=== PATIENT | male | born 1940 | race Caucasian/White ===

== ENCOUNTER 2022-03-13 08:37 | Emergency (ER) | payer MEDICARE, OTHER, SELFPAY ==
[2022-03-13 08:48] VITALS: BP 151/80; PULSE 76; RESP 22; TEMP 36.6; O2SAT 93; BMI 26.5
[2022-03-13 09:00] VITALS: BP 158/87; PULSE 76; RESP 22; TEMP 36.6; O2SAT 93
--- NOTE | 2022-03-13 09:11 | CRLHL7_ITS ---
For Patients: As a result of the Century Cures Act, medical imaging exams and procedure reports are released immediately into your electronic medical record. You may view this report before your referring provider. If you have questions, please contact your health care provider. INDICATION: Cough COMPARISON: None TECHNIQUE: PA and lateral views of the chest were acquired FINDINGS: TUBES AND LINES: None. HEART AND MEDIASTINUM: The heart size is normal. The mediastinal contour appears normal for patient age. LUNGS AND PLEURAL SPACES: Hyperinflation which may be related to COPD. This should be considered in the appropriate clinical setting. However, there is no acute focal findings.The pleural spaces are unremarkable. OSSEOUS STRUCTURES: Age-appropriate appearance. No acute focal finding. IMPRESSION: Hyperinflated but otherwise unremarkable appearing lungs. No acute focal findings. Dictated by Kirt Han MD @ 03/13/2022 10:14:29 AM (Electronically Signed)
--- NOTE | 2022-03-13 09:12 | ED_ITS ---
HPI - General Adult General Chief complaint: Weakness Stated complaint: feeling unstable Time Seen by Provider: 03/13/22 09:02 History of Present Illness HPI narrative: This 81-year-old male comes in reporting generalized weakness. He states that he has had a cough over the past couple days. He arrives with oximetry at 92% on room air and states that he did not think that he felt short of breath but when I indicate his oximetry level he states that maybe there was some shortness of breath. He also reports some increased urinary frequency. He had a prostate procedure done about 6 months ago which helped for a month or 2 afterwards but since then has had dysuria symptoms. Related Data Previous Rx's Medication Instructions Recorded nirmatrelvir 300 mg (150 mg See Rx Instructions PO .COMPLEX 03/13/22 x2)-ritonavir 100 mg tablet,dose #30 ea pack(EUA) (Paxlovid) Allergies Allergy/AdvReac Type Severity Reaction Status Date / Time No Known Drug Allergies Allergy Verified 03/13/22 08:48 Review of Systems Status of ROS: Reports: 10 or more systems reviewed and unremarkable except as noted in History and below Narrative: Constitutional: No fevers, no weight gain or loss. Eyes: No discharge. No vision changes. HENT: No congestion, no sore throat, no ear pain. Cardiovascular: No chest pain, no palpitations. Respiratory: No shortness of breath. He reports a cough over the past couple days. Gastrointestinal: No abdominal pain, no vomiting, no diarrhea. Genitourinary: No hematuria. Increased urinary frequency. Musculoskeletal: Normal range of motion. Skin: No rashes, no pruritis. Neurological: No dizziness, weakness, sensory change, speech change. Endo/Heme/Allergies: No bruising or bleeding. No polydipsia. Pysch: no suicidality, no anxiety, no insomnia. All other systems reviewed and are negative. PFSH PFSH Social History Smoking Status: Former smoker Do you use any of these nicotine containing products: None Second hand tobacco smoke exposure: No How often do you have a drink containing alcohol: never How often do you have six or more drinks on one occasion: Never AUDIT-C Alcohol total score: 0 Non-prescribed substance use: denies use service: No Exam Narrative: Exam Narrative: Constitutional: Well-developed, well-nourished, no acute distress. HEENT: Normocephalic, atraumatic. Neck: Normal range of motion. Nontender. Supple. Heart: Regular. No murmurs. Normal rate. Intact distal pulses. Lungs: Clear to auscultation. No chest discomfort. No wheezes, rhonchi, or rales. Abdomen: Normal bowel sounds. Nontender. No rebound tenderness. Genitalia: Deferred. Back: No midline tenderness. Normal range of motion. Extremities: Normal range of motion. No injury. No pedal edema. Skin: Intact. No rash. Warm. No erythema or pallor. Neurologic: No altered sensation. No weakness. Alert and oriented. Psychiatric: No suicidality. No anxiety or depression. No insomnia. Nursing notes and vitals signs are reviewed. Const: Vital Signs, click to edit/add: Vital Signs - 24 hr 03/13/22 08:48 Temperature 98 F Pulse Rate [Pulse Oximeter] 76 Respiratory Rate 22 Blood Pressure [Ri ght Upper Arm] 151/80 H Pulse Oximetry 93 Oxygen Delivery Me thod Room Air Course Vital Signs Vital signs: Initial Vital Signs Temperature 98 F 03/13/22 08:48 Temperature Source Temporal Artery Scan 03/13/22 08:48 Pulse Rate 76 03/13/22 08:48 Pulse Rhythm 03/13/22 08:48 Respiratory Rate 22 03/13/22 08:48 Blood Pressure 151/80 H 03/13/22 08:48 Blood Pressure Mean 103 03/13/22 08:48 Pulse Oximetry 93 03/13/22 08:48 Oxygen Delivery Method 03/13/22 08:48 Vital Signs Temperature 98 F 03/13/22 08:48 Pulse Rate 76 03/13/22 08:48 Respiratory Rate 22 03/13/22 08:48 Blood Pressure 151/80 H 03/13/22 08:48 Pulse Oximetry 93 03/13/22 08:48 Oxygen Delivery Method 03/13/22 08:48 Temperature 98 F 03/13/22 08:48 Pulse Rate 76 03/13/22 08:48 Respiratory Rate 22 03/13/22 08:48 Blood Pressure 151/80 H 03/13/22 08:48 Pulse Oximetry 93 03/13/22 08:48 Oxygen Delivery Method 03/13/22 08:48 Medical Decision Making MDM Narrative Medical decision making narrative: This patient comes in feeling generalized weakness and occasional cough. Lab results returned with normal findings except he is positive for COVID. The patient has normal kidney function and is a candidate for Paxil of it. This was prescribed for him. He is okay to return home. IA instructed him regarding signs or symptoms that would indicate a need for return and re-evaluation. Lab Data Labs: Lab Results 03/13/22 03/13/22 03/13/22 Range/Units 09:20 09:20 09:20 WBC 7.09 (4.50-11.00) K/uL RBC 4.11 L (4.30-5.90) m/uL Hgb 12.6 L (13.5-17.5) gm/dL Hct 37.0 (37.0-53.0) % MCV 90 (80-100) fL MCH 31 (26-34) pg MCHC 34 (32-36) gm/dL RDW Coeff of Radha 12.6 (11.5-15.5) % Plt Count 144 (140-440) K/uL Neut % (Auto) 75.7 H (42.0-72.0) % Lymph % (Auto) 5.2 L (20-44) % [place] % (Auto) 15.9 H (0.0-11.0) % Eos % (Auto) 2.3 (0.0-7.0) % Baso % (Auto) 0.3 (0.0-3.0) % Neut # (Auto) 5.40 (1.7-7.0) K/uL Lymph # (Auto) 0.40 L (0.90-2.90) K/uL [place] # (Auto) 1.10 H (0.00-0.90) K/UL Eos # (Auto) 0.16 (0.00-0.50) K/uL Baso # (Auto) 0.02 (0.00-0.30) K/uL Abs Immat Gran (auto) 0.04 (0.00-0.30) K/uL Sodium 131 L (135-149) mmol/L Potassium 4.1 (3.6-5.1) mmol/L Chloride 96 (96-114) mmol/L Carbon Dioxide 26 (20-32) mmol/L BUN 22 (7-30) mg/dL Creatinine 1.3 (0.5-1.5) mg/dL Estimated Creat Clear 46.66 Estimated GFR 55 ml/min Glucose 115 (60-115) mg/dL Calcium 9.0 (8.4-10.6) mg/dL SARS-CoV-2 (PCR) POSITIVE SARS-CoV-2 A (Negative) Influenza Type A (PCR) Negative PCR FLU A (Negative) Influenza Type B (PCR) Negative PCR FLU B (Negative) POC Troponin I (0.01-0.04) ng/ml 03/13/22 Range/Units 09:20 WBC (4.50-11.00) K/uL RBC (4.30-5.90) m/uL Hgb (13.5-17.5) gm/dL Hct (37.0-53.0) % MCV (80-100) fL MCH (26-34) pg MCHC (32-36) gm/dL RDW Coeff of Radha (11.5-15.5) % Plt Count (140-440) K/uL Neut % (Auto) (42.0-72.0) % Lymph % (Auto) (20-44) % [place] % (Auto) (0.0-11.0) % Eos % (Auto) (0.0-7.0) % Baso % (Auto) (0.0-3.0) % Neut # (Auto) (1.7-7.0) K/uL Lymph # (Auto) (0.90-2.90) K/uL [place] # (Auto) (0.00-0.90) K/UL Eos # (Auto) (0.00-0.50) K/uL Baso # (Auto) (0.00-0.30) K/uL Abs Immat Gran (auto) (0.00-0.30) K/uL Sodium (135-149) mmol/L Potassium (3.6-5.1) mmol/L Chloride (96-114) mmol/L Carbon Dioxide (20-32) mmol/L BUN (7-30) mg/dL Creatinine (0.5-1.5) mg/dL Estimated Creat Clear Estimated GFR ml/min Glucose (60-115) mg/dL Calcium (8.4-10.6) mg/dL SARS-CoV-2 (PCR) (Negative) Influenza Type A (PCR) (Negative) Influenza Type B (PCR) (Negative) POC Troponin I 0.00 L (0.01-0.04) ng/ml Imaging Data Chest x-ray: Radiologist's impression: Hyperinflated but otherwise unremarkable appearing lungs. No acute focal findings. ECG Data Attestation: I personally reviewed and interpreted this ECG as follows: Interpretation: Normal sinus rhythm. Rate is 74 beats per minute. There are no specific ST or T-wave abnormalities. Discharge Plan Discharge Clinical Impression: COVID-19 Patient Disposition: Home, Self-Care Condition: Stable Instructions: COVID-19 (Coronavirus Disease 2019) (ED) Additional Instructions: Take medication as prescribed. Follow up with MD or return if worsening symptoms occur, especially if becoming short of breath. Prescriptions: New Paxlovid (EUA) 300 mg (150 mg x 2)-100 mg tablets,dose pack See Rx Instructions .ROUTE .COMPLEX Qty: 30 0RF Rx Instructions: take TWO 150 mg tablets of nirmatrelvir with ONE 100 mg tablet of ritonavir twice daily for 5 days Follow Up/Referrals: Provider,Not a Local [Primary Care Provider] - Stand Alone Forms: [facility] Info Instructions
[2022-03-13 09:30] VITALS: BP 175/88
[2022-03-13 09:50] LABS: Basophils Absolute Auto 0.02 K/uL (0.00-0.30); Basophils Percent Auto 0.3 % (0.0-3.0); Eosinophils Absolute Auto 0.16 K/uL (0.00-0.50); Eosinophils Percent Auto 2.3 % (0.0-7.0); Hemoglobin* 12.6 gm/dL (13.5-17.5); Immature Granulocytes Abs Auto 0.04 K/uL (0.00-0.30); Lymphocytes Percent Auto 5.2 % (20-44); Mean Corpuscular HGB Conc 34 gm/dL (32-36); Mean Corpuscular Hemoglobin 31 pg (26-34); Mean Corpuscular Volume 90 fL (80-100); Monocytes Percent Auto 15.9 % (0.0-11.0); Neutrophils Percent Auto 75.7 % (42.0-72.0); Platelet Count* 144 K/uL (140-440); RDW Coefficient of Variation % 12.6 % (11.5-15.5); Red Blood Count 4.11 m/uL (4.30-5.90); White Blood Count* 7.09 K/uL (4.50-11.00)
[2022-03-13 10:00] VITALS: BP 122/74
[2022-03-13 10:10] LABS: Chloride* 96 mmol/L (96-114); Potassium* 4.1 mmol/L (3.6-5.1); Sodium* 131 mmol/L (135-149)
[2022-03-13 10:13] LABS: Blood Urea Nitrogen* 22 mg/dL (7-30); Carbon Dioxide* 26 mmol/L (20-32); Creatinine* 1.3 mg/dL (0.5-1.5); Est. Creatinine Clearance* 46.66; Estimated Glomerular Filt Rate 55 ml/min
[2022-03-13 10:14] LABS: Glucose* 115 mg/dL (60-115)
[2022-03-13 10:16] LABS: Slide Review Reflex No
[2022-03-13 10:30] VITALS: BP 111/61
[2022-03-13 10:48] LABS: PCR FLU A Negative PCR FLU A (Negative); PCR FLU B Negative PCR FLU B (Negative)
[2022-03-13 15:07] LABS: SARS PCR* POSITIVE SARS-CoV-2 (Negative)
== END 2022-03-13 11:31 | disposition home or self-care (01) ==
PROVIDERS: Emergency Provider Emergency Medicine Emergency Medical Services
DX: U07.1 COVID-19 (principal)
CPT/HCPCS: 36415; 71046; 80048; 81001; 84484; 85025; 87631; 93005; 99284; 99285

== ENCOUNTER 2022-06-04 16:30 | Outpatient (CLI) | payer MEDICARE, OTHER, SELFPAY | END 2022-06-04 16:31 | disposition home or self-care (01) | LOC: AMB 06-14 19:45 | PROVIDERS: Visit Provider Emergency Medicine Emergency Medical Services | DX: R07.89 Other chest pain (principal) | CPT/HCPCS: A0425; A0427 ==

== ENCOUNTER 2022-06-04 17:10 | Emergency (ER) | payer MEDICARE, OTHER, SELFPAY ==
[2022-06-04 17:23] VITALS: BP 136/69; PULSE 58; RESP 16; TEMP 36.3; O2SAT 95; BMI 29.5
[2022-06-04 17:30] VITALS: BP 149/68; PULSE 64; RESP 16; O2SAT 96
--- NOTE | 2022-06-04 17:36 | CRLHL7_ITS ---
For Patients: As a result of the Century Cures Act, medical imaging exams and procedure reports are released immediately into your electronic medical record. You may view this report before your referring provider. If you have questions, please contact your health care provider. INDICATION: [id number]. TECHNIQUE: Chest 1 views. COMPARISON: March 13, 2022. FINDINGS: Cardiovascular and mediastinum: Heart size and vasculature are normal in caliber and appearance. Lungs and pleural spaces: Coarse interstitial opacities no sign of infiltrate or mass. No sign of pleural effusion. No pneumothorax. Bones and soft tissues: No significant findings. IMPRESSION: Chronic coarse interstitial opacities. No focal consolidations or significant change when compared to prior study. Dictated by Manuel Culver MD @ 06/04/2022 6:20:04 PM (Electronically Signed)
[2022-06-04 17:40] VITALS: O2SAT 97
--- OUTSIDE RECORDS SUMMARY | 2022-06-04 18:07 | XMS_ITS | Encounter Summary ---
:1940 Author Organization [facility] Address [address] [place] [address] Care Team Providers Name Role Phone Unavailable Primary Care Provider Unavailable Encounter Details Date Type Department Care Team Description 05/24/2022 Orders Only Division of Nephrology and [facility] [place] [address] [facility] [address] [place] [phone] (Wo rk) Social History Tobacco Use Types Packs/Day Years Used Date Smoking Tobacco: Former Cigarettes 1 [birth year] /06/1954 - 11/19/2004 Smokeless Tobacco: Never Alcohol Use Standard Drinks/Week Comments No 0 (1 standard drink = 0.6 oz pure alcoho l) none since 2004 Alcohol Habits Answer Date Recorded How often do you have a drink containing alcohol? Never 05/23/2022 How many drinks containing alcohol do you have on a typical Not asked day when you are drinking? How often do you have six or more drinks on one occasion? Ne neha 03/04/2019 Social Isolation Answer Date Recorded In a typical week, how many times do you talk on the Three t imes a week 05/23/2022 phone with family, friends, or neighbors? How often do you get together with friends or Once a week 05/23/2022 relatives? How often do you attend evangelical or alevism Never 05/23/2022 services? Do you belong to any clubs or organizations such as No 05/23/2022 evangelical groups, unions, fraternal or athletic groups, or school groups? How often do you attend meetings of the clubs or Never 05/23/2022 organizations you belong to? Are you now , , , , 05/23/2022 never or living with a partner? Physical Activity Answer Date Recorded On average, how many days per week do you engage in moderate to 0 days 05/23/2022 strenuous exercise (like walking fast, running, jogging, dancing, swimming, biking, or other activities that cause a light or heavy sweat)? On average, how many minutes do you engage in exercise at th is 0 min 05/23/2022 level? Stress Answer Date Recorded Do you feel stress - tense, restless, nervous, or Only a lit tle 05/23/2022 anxious, or unable to sleep at night because your mind is troubled all the time - these days? Financial Resource Strain Answer Date Recorded How hard is it for you to pay for the very basics like Not v genny hard 05/23/2022 food, housing, medical care, and heating? Intimate Partner Violence Answer Date Recorded Within the last year, have you been afraid of your partner o r No 05/23/2022 ex-partner? Within the last year, have you been humiliated or emotionall y No 05/23/2022 abused in other ways by your partner or ex-partner? Within the last year, have you been kicked, hit, slapped, or No 05/23/2022 otherwise physically hurt by your partner or ex-partner? Within the last year, have you been raped or forced to have any No 05/23/2022 kind of sexual activity by your partner or ex-partner? Food Insecurity Answer Date Recorded Within the past 12 months, you worried that your food would Never true 05/23/2022 run out before you got money to buy more. Within the past 12 months, the food you bought just didn't N ever true 05/23/2022 last and you didn't have money to get more. Transportation Needs Answer Date Recorded In the past 12 months, has lack of transportation kept you f rom No 05/23/2022 medical appointments or from getting medications? In the past 12 months, has lack of transportation kept you f rom No 05/23/2022 meetings, work, or getting things needed for daily living? Housing Stability Answer Date Recorded In the last 12 months, was there a time when you were not ab le No 05/23/2022 to pay the mortgage or rent on time? In the last 12 months, how many places have you lived? 1 05/23/2022 In the last 12 months, was there a time when you did not hav e a No 05/23/[address] to sleep or slept in a half-way (including now)? Education Answer Date Recorded What is the highest level of school you have Some college, n o degree 05/22/2022 completed or the highest degree you have received? Sex Assigned at Date Recorded Male 04/08/2018 12:55 PM CDT documented as of this encounter Plan of Treatment Not on filedocumented as of this encounter Visit Diagnoses Not on filedocumented in this encounter
--- OUTSIDE RECORDS SUMMARY | 2022-06-04 18:07 | XMS_ITS | Encounter Summary ---
:1940 Author Organization [facility] Address [address] [place] [address] Care Team Providers Name Role Phone Unavailable Primary Care Provider Unavailable Encounter Details Date Type Department Care Team Description 05/22/2022 Clinical Communication Division of Nephrology Antelmo Reese and Hypertension in [place], [place] [address] [facility] [address] [place] [phone] Social History Tobacco Use Types Packs/Day Years Used Date Smoking Tobacco: Former Cigarettes 0 Quit : 2004 Smokeless Tobacco: Never Alcohol Use Standard Drinks/Week [...] 05/23/2022 relatives? How often do you attend bahai or anabaptism Never 05/23/2022 services? Do you belong to any clubs or organizations such as No 05/23/2022 bahai groups, unions, fraternal or athletic groups, or [...] place to sleep or slept in a longterm (including now)? Education Answer Date Recorded What is the highest level of school you have Some college, n o degree 05/22/2022 completed or the highest degree you have received? Sex Assigned at Date Recorded Male 04/08/2018 12:55 PM CDT documented as of this encounter Miscellaneous Notes Telephone Encounter - Antelmo Reese M.D. 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 Yesterday from about 5-6 p.m. he had some left-sided chest pain without radiation. He took 2 nitroglycerin and noted no improvement after 10 minutes. He took a third and the pain resolved. The whole episode lasted about 1 hour. He did not note an acid or burning sensation in his chest or throat. Today he feels well. His blood pressure has been minimally elevated. He has not had any exertional symptoms. His medications include amlodipine, carvedilol, losartan/HCTZ, rosuvastatin, and nitroglycerin if needed. Yesterday's episode was probably angina. If he has more symptoms, he should go to the emergency department. I will arrange evaluation, including cardiology consultation. RAIL OPERATOR documented in this encounter Plan of Treatment Not on filedocumented as of this encounter Visit Diagnoses Not on filedocumented in this encounter
--- OUTSIDE RECORDS SUMMARY | 2022-06-04 18:07 | XMS_ITS | Encounter Summary ---
:1940 Author Organization [facility] Address [address] [place] [address] Care Team Providers Name Role Phone Unavailable Primary Care Provider Unavailable Reason for Referral Outpatient (Routine) - Closed Specialty Diagnoses / Procedures Referred By Contact Refer red To Contact Diagnoses Angina Pectoris Unspecified (HCC) Antelmo Reese M.D. [facility] Procedures DX Chest AP or PA and Lateral 2 Views [address] [place] [phone] Referral ID Status Reason Start Date Expiration Date Visits Requ ested Visits Authorized [id number] Closed 05/22/2022 05/22/2023 1 1 YMAN Reason for Visit Outpatient (Routine) - Closed Specialty Diagnoses / Procedures Referred By Contact Refer red To Contact Diagnoses Angina Pectoris Unspecified (HCC) Antelmo Reese M.D. [facility] Procedures DX Chest AP or PA and Lateral 2 Views [address] [place] [address] [phone] Referral ID Status Reason Start Date Expiration Date Visits Requ ested Visits Authorized [id number] Closed 05/22/2022 05/22/2023 1 1 Encounter Details Date Type Department Care Team Description 05/24/2022 Hospital Encounter Department of Antelmo Reese Radiology, Dom Clayton M.D. Unspecified (HCC) [facility], in [address] [place] [address] [place] [phone] [place], [place] [phone] (Work) [phone] Social History Tobacco Use Types Packs/Day Years Used Date Smoking Tobacco: Former Cigarettes 1 60 06/0 [birth year]/1954 - 11/19/2004 Smokeless Tobacco: Never Alcohol Use [...] 05/23/2022 relatives? How often do you attend faith or sikh Never 05/23/2022 services? Do you belong to any clubs or organizations such as No 05/23/2022 faith groups, unions, fraternal or athletic groups, or [...] place to sleep or slept in a halfway (including now)? Education Answer Date Recorded What is the highest level of school you have Some college, n o degree 05/22/2022 completed or the highest degree you have received? Sex Assigned at Date Recorded Male 04/08/2018 12:55 PM CDT documented as of this encounter Medications at Time of Discharge Medication Sig Dispensed Refills Start Date End Date acetaminophen (TYLENOL) Take 1-2 tablets by 0 500 mg tablet mouth 3 (three) times a day as needed. pain amLODIPine (NORVASC) TAKE ONE TABLET BY 90 tablet 3 022 2.5 mg MOUTH ONE TIME DAILY tabletIndications: Hypertension Personal History aspirin 325 mg tablet Take 1 tablet by 0 09/24/19 15 mouth daily. carvediloL (COREG) 12.5 Take 1 tablet (12.5 200 tablet 3 10/202104/29/2023 mg tabletIndications: mg total) by mouth 2 Hypertension Personal (two) times a day History with meals. finasteride (PROSCAR) 5 Take 1 tablet (5 mg 100 tablet 3 10/202104/29/2023 mg tabletIndications: total) by mouth Benign Prostatic daily. Hyperplasia Without Obstruction lanolin/mineral Administer 1 drop 0 04/06/2015 oil/petrolatum into affected eye(s) (ARTIFICIAL TEARS OPHT) as needed. As needed (both eyes). loratadine (CLARITIN) Take 10 mg by mouth 0 10 mg tablet daily. losartan-hydroCHLOROthi Take 1 tablet by 100 tablet 3 202104/29/2023 azide (HYZAAR) 100-25 mouth every morning. mg per tabletIndications: Hypertension Personal History miconazole (MICATIN) 2 Apply 1 application 28.35 g 1 01/2022 % cream topically 2 (two) times a day. Apply to right armpit twice daily. nitroglycerin Place 1 tablet (0.4 25 tablet 11 12/24/2020 (NITROSTAT) 0.4 mg SL mg total) under the tabletIndications: tongue every 5 (five) Coronary Artery Disease minutes as needed for Without Angina Pectoris chest pain. Place 1 tab under the tongue at first sign of chest pain. If no relief in 5 min, call 911. Repeat dose every 5 min up to 2 additional doses if chest pain continues. POLYETHYLENE GLYCOL Take 1 g by mouth 0 7 3350 ORAL daily. MiraLAX powder rosuvastatin (CRESTOR) TAKE ONE TABLET BY 90 tablet 3 02/08 10 mg MOUTH IN THE EVENING tabletIndications: Coronary Artery Disease Without Angina Pectoris sertraline (ZOLOFT) 50 TAKE ONE TABLET BY 90 tablet 3 02/08 mg tabletIndications: MOUTH ONE TIME DAILY Hypertension Essential Primary tamsulosin (FLOMAX) 0.4 TAKE ONE CAPSULE BY 90 capsule 3 mg 24 hr MOUTH ONE TIME DAILY capsuleIndications: Benign Prostatic Hyperplasia Without Obstruction traMADoL (ULTRAM) 50 mg Take 1 tablet (50 mg 270 tablet 1 tabletIndications: total) by mouth 3 Chronic Pain/Nonacute (three) times a day Pain Indications: Chronic Pain/Nonacute Pain. zolpidem (AMBIEN) 10 mg TAKE ONE TABLET BY 90 tablet 3 01/23 tabletIndications: MOUTH ONE TIME DAILY Insomnia AT BEDTIME documented as of this encounter Plan of Treatment Not on filedocumented as of this encounter Procedures Procedure Name Priority Date/Time Associated Comments Diagnosis DX CHEST AP OR PA RAD - Routine 05/24/2022 9:09 Angina Pectoris Res ults for this AND LATERAL 2 (most inpatients AM BUGGYMAN Unspecified (HCC) proce dure are in VIEWS and all the results outpatients) section. documented in this encounter Results DX Chest AP or PA and Lateral 2 Views (05/24/2022 9:09 AM BUGGYMAN) Anatomical Region Laterality Modality Chest, Thoracic RST LOS, Thoracic ARZ LOS, Thoracic N/A Digital Radiography FLA LOS Specimen (Source) Anatomical Collection Method Collection Time Re ceived Time Location / / Volume Laterality 05/24/2022 9:16 AM BUGGYMAN Impressions 05/24/2022 9:26 AM BUGGYMAN Comparison chest radiograph 02/25/2014. The nodular opacity projected over the upper thoracic spine on the previous exam is n o longer identified. Mildly tortuous aorta with calcification. Right cardiac fat pad. Os teophytic changes of the spine. Otherwise, negative chest. Narrative 05/24/2022 9:26 AM BUGGYMAN EXAM: ??DX CHEST AP OR PA AND LATERAL 2 VIEWS Procedure Note Enrico Ho M.D. - 05/24/2022Form atting of this note might be different from the original. EXAM: DX CHEST AP OR PA AND LATERAL 2 EWS IMPRESSION: Comparison chest radiograph 02/25/2014. The nodular opacity projected over the upper thoracic spine on the previous exam is n o longer identified. Mildly tortuous aorta with calcification. Right cardiac fat pad. Os teophytic changes of the spine. Otherwise, negative chest. Antelmo [facility] documented in this encounter Visit Diagnoses Diagnosis Angina Pectoris Unspecified (HCC) documented in this encounter
--- OUTSIDE RECORDS SUMMARY | 2022-06-04 18:07 | XMS_ITS | Encounter Summary ---
:1940 Author Organization [facility] Address [address] [place] [address] Care Team Providers Name Role Phone Unavailable Primary Care Provider Unavailable Encounter Details Date Type Department Care Team Description 05/26/2022 Orders Only Division of Nephrology and Ghulam Reese, [facility] [place] [address] [facility] [address] [place] [phone] (Wo rk) Social History Tobacco Use Types [...] 05/23/2022 relatives? How often do you attend muslim or muslim Never 05/23/2022 services? Do you belong to any clubs or organizations such as No 05/23/2022 muslim groups, unions, fraternal or athletic groups, or [...] place to sleep or slept in a senior care (including now)? Education Answer Date Recorded What [...]
--- OUTSIDE RECORDS SUMMARY | 2022-06-04 18:07 | XMS_ITS | Encounter Summary ---
:1940 Author Organization [facility] Address [address] [place] [address] Care Team Providers Name Role Phone Unavailable Primary Care Provider Unavailable Reason for Referral Outpatient (Routine) - Closed Specialty Diagnoses / Procedures Referred By Contact Refer red To Contact Diagnoses Angina Pectoris Unspecified (HCC) Antelmo Reese M.D. [facility] Procedures Echo Stress [address] [place], [place] [address] Referral ID Status Reason Start Date Expiration Date Visits Requ ested Visits Authorized [id number] Closed 05/22/2022 05/22/2023 1 1 ROUTE SUPERVISOR Outpatient (Routine) - Closed Specialty Diagnoses / Procedures Referred By Contact Refer red To Contact Diagnoses Angina Pectoris Unspecified (HCC) Antelmo Reese M.D. [facility] Procedures DX Chest AP or PA and Lateral 2 Views [address] [place], [place] [phone] Referral ID Status Reason Start Date Expiration Date Visits Requ ested Visits Authorized [id number] Closed 05/22/2022 05/22/2023 1 1 ROUTE SUPERVISOR Outpatient (Routine) - Closed Specialty Diagnoses / Procedures Referred By Contact Refer red To Contact Diagnoses Angina Pectoris Unspecified (HCC) Antelmo Reese M.D. [facility] Procedures ECG 12 Lead [address] [place] [address] Referral ID Status Reason Start Date Expiration Date Visits Requ ested Visits Authorized [id number] Closed 05/22/2022 05/22/2023 1 1 ROUTE SUPERVISOR Encounter Details Date Type Department Care Team Description 05/22/2022 Orders Only Division of Nephrology Antelmo Reese ottoniel Pectoris and Hypertension in Yaw Clayton Unspecified (HCC) [place], [place] 200 [facility] (Primary Dx) [address] [place] [phone] Social History Tobacco Use Types Packs/Day Years [...] 05/23/2022 relatives? How often do you attend adventist or sikh Never 05/23/2022 services? Do you belong to any clubs or organizations such as No 05/23/2022 adventist groups, unions, fraternal or athletic groups, or [...] place to sleep or slept in a long-term (including now)? Education Answer Date Recorded What is the highest level of school you have Some college, n o degree 05/22/2022 completed or the highest degree you have received? Sex Assigned at Date Recorded Male 04/08/2018 12:55 PM CDT documented as of this encounter Plan of Treatment Scheduled Orders Name Type Priority Associated Diagnoses Order S chedule INR, POCT Point of Care Routine Angina Pectoris Expected: 1 07/24/2021 Testing-Docked Unspecified (HCC) (Approxi mate), Device Expires: 2023 documented as of this encounter Results ECHO STRESS 2D WITH COLOR, DOPPLER AND CONTRAST (05/25/2022 8:59 AM MILK ROUTE SUPERVISOR) [facility] Method Time Signature Ejection Fraction 55 MC CV EIMS Mid-Ascending Aorta 36 MC CV EIMS LV Mass Index 89 MC CV EIMS LV End-Diastolic 47 MC CV EIMS Diameter MV E Velocity 0.70 MC CV EIMS MV A Velocity 1.20 MC CV EIMS MV E/A 0.58 MC CV EIMS MV e' Velocity 0.04 MC CV EIMS Medial MV E/e' Medial 17.50 MC CV EIMS LV Interventricular 12 MC CV EIMS Septal Wall Thickness LV Posterior Wall 10 MC CV EIMS Thickness LV Relative Wall 43 MC CV EIMS Thickness RA Pressure 5 MC CV EIMS LA Volume Index 44 MC CV EIMS WMSI At Rest 1.19 MC CV EIMS WMSI At Peak Stress 1.13 MC CV EIMS Anatomical Region Laterality Modality Echocardiography Specimen (Source) Anatomical Collection Method Collection Time Re ceived Time Location / / Volume Laterality 05/25/2022 7:18 AM MILK ROUTE SUPERVISOR Impressions 05/25/2022 9:49 AM MILK ROUTE SUPERVISOR STRESS TEST:Dobutamine was infused from 5 mcg/kg/min to 40 mcg/kg/min. A dose of 0.5 mg of atropine was administered. A peak heart rate of 122 BPM was achieved (88% age-predicted maximal HR). The test w as terminated due to target heart rate a chievement. The baseline ECG demonstrated sinus rhyt hm. The baseline ECG demonstrated VPC's. The stress ECG was negative for ischemia. With stress, there were no S-T changes. VPC's and APC's present at stress. Nons ustained ventricular tachycardia with Do butamine infusion (5 beat run). Please see Thad Velazquez for additional information. REST IMAGES: LEFT VENTRICLE:Normal left ventricular c hamber size. Normal left ventricular wall thickness with prominent basal septum. Estimated left ventricular ejection fraction range 55% - 60%. Regional wall motion abnormalities were present (see wall motion graphics). Grade 1a/3 left ventricular d iastolic dysfunction, consistent with mildly elevated left ventricular filling pressure at rest. RIGHT VENTRICLE:Normal right ventricular chamber size. Normal right ventricular systolic function. Unable to detect peak tricuspid regurgitation velocity for pulmonary artery systolic pressure calculation. ATRIA:Moderately enlarged left atrial si ze. Left atrial volume index 44 ml/m2. Enlarged right atrial size. CARDIAC VALVES:Trileaflet aortic valve. Sclerotic aortic valve. No aortic valve regurgitation. Thickened mitral valve. Mild mitral valve regurgitation. Pulmonary valve not well visualized. Trivial pulmo nary valve regurgitation. Normal tricusp id valve. Trivial tricuspid valve regurgitation. OTHER ECHO FINDINGS:Normal inferior vena cava size with normal inspiratory collapse (>50%). Normal mid ascending aorta diameter of 36 mm. No ??pericardial effusion. For the complete report, see the Order-L [employer] Documents. Narrative 05/25/2022 9:49 AM MILK ROUTE SUPERVISOR For the complete report, see the Order-Level Documents. Hemodynamics Heart Rate: 73 BPM Blood Pressure: 166 / 84 mmHg ECG: Normal sinus rhythm Final Impressions 1. Dobutamine stress echocardiogram nega tive for myocardial ischemia. 2. Ejection fraction response from 55% a t rest to 65% at peak stress. 3. Left ventricular end-systolic volume decreased with stress. 4. No new regional wall motion abnormali ties with stress. Procedure Note Shannon Cedeño M.B.BChristianS., Ph.D. - 06/2021 For the complete report, see the [place] [employer]L [employer] Documents. Hemodynamics Heart Rate: 73 BPM Blood Pressure: 166 / 84 mmHg ECG: Normal sinus rhythm Final Impressions 1. Dobutamine stress echocardiogram nega tive for myocardial ischemia. 2. Ejection fraction response from 55% a t rest to 65% at peak stress. 3. Left ventricular end-systolic volume decreased with stress. 4. No new regional wall motion abnormali ties with stress. Findings STRESS TEST:Dobutamine was infused from 5 mcg/kg/min to 40 mcg/kg/min. A dose of 0.5 mg of atropine was administered. A peak heart rate of 122 BPM was achieved (88% age-predicted maximal HR). The test was terminated due to target heart rate achievement. The ba seline ECG demonstrated sinus rhythm. The baseline ECG demonstrated VPC's. The stress ECG was negative for ischemia. With stress, there were no S-T changes. VPC's and APC's present at stress. Nonsustained ventricu lar tachycardia with Dobutamine infusion (5 beat run). Please see Nursing Notes for additional information. REST IMAGES: LEFT VENTRICLE:Normal left ventricular c hamber size. Normal left ventricular wall thickness with prominent basal septum. Estimated left ventricular ejection fraction range 55% - 60%. Regional wall motion abnormalities were present (see wall mot ion graphics). Grade 1a/3 left ventricular diastolic dysfunction, consistent with mildly elevated left ventricular filling pressure at rest. RIGHT VENTRICLE:Normal right ventricular chamber size. Normal right ventricular systolic function. Unable to detect peak tricuspid regurgitation velocity for pulmonary artery systolic pressure calculation. ATRIA:Moderately enlarged left atrial si ze. Left atrial volume index 44 ml/m2. Enlarged right atrial size. CARDIAC VALVES:Trileaflet aortic valve. Sclerotic aortic valve. No aortic valve regurgitation. Thickened mitral valve. Mild mitral valve regurgitation. Pulmonary valve not well visualized. Trivial pulmonary valve regurgitation. Normal tricuspid va lve. Trivial tricuspid valve regurgitation. OTHER ECHO FINDINGS:Normal inferior vena cava size with normal inspiratory collapse (>50%). Normal mid ascending aorta diameter of 36 mm. No pericardial effusion. For the complete report, see the Order-L [employer]el Documents. Antelmo Reese M.D. CV ECHO PROCEDURES DX Chest AP or PA and Lateral 2 Views (05/24/2022 9:09 AM MILK ROUTE SUPERVISOR) Anatomical Region Laterality Modality Chest, Thoracic RST LOS, Thoracic ARZ LOS, Thoracic N/A Digital Radiography FLA LOS Specimen (Source) Anatomical Collection Method Collection Time Re ceived Time Location / / Volume Laterality 05/24/2022 9:16 AM MILK ROUTE SUPERVISOR Impressions 05/24/2022 9:26 AM MILK ROUTE SUPERVISOR Comparison chest radiograph 02/25/2014. The nodular opacity projected over the upper thoracic spine on the previous exam is n o longer identified. Mildly tortuous aorta with calcification. Right cardiac fat pad. Os teophytic changes of the spine. Otherwise, negative chest. Narrative 05/24/2022 9:26 AM MILK ROUTE SUPERVISOR EXAM: ??DX CHEST AP OR PA AND [...] of the spine. Otherwise, negative chest. Antelmo Reese M.D. IMG DIAGNOSTIC IMAGING PROCE DURES ECG 12 Lead (05/24/2022 8:27 AM MILK ROUTE SUPERVISOR) P athologist Signature Ventricular Rate 83 BPM MUSE ECG/Min CO Interval 170 ms MUSE QRSD Interval 94 ms MUSE QT Interval 380 ms MUSE QTC Interval 446 ms MUSE P [place] 27 degrees MUSE R [place] 34 degrees MUSE T Wave [place]ell 78 degrees MUSE Specimen Anatomical Collection Method Collection Time Receive d Time (Source) Location / / Volume Laterality 05/24/2022 8:27 AM 8:46 MILK ROUTE SUPERVISOR AM MILK ROUTE SUPERVISOR Impressions MUSE - 05/24/2022 8:46 AM MILK ROUTE SUPERVISOR Sinus rhythm Premature ventricular complexes Left atrial enlargement Possible Inferior infarct Nonspecific T wave abnormality When compared with ECG of 24-DEC-2020 14 :30, Premature supraventricular complexes are no longer present Reviewed by MARTINA Green Narrative This result has an attachment that is no t available. Procedure Note Stan Mccallum M.D. - 05/24/2022Forma tting of this note might be different from the original. IMPRESSION: Sinus rhythm Premature ventricular complexes Left atrial enlargement Possible Inferior infarct Nonspecific T wave abnormality When compared with ECG of 24-DEC-2020 14 :30, Premature supraventricular complexes are no longer present Reviewed by MARTINA Green Antelmo Reees M.D. ECG ORDERABLES Performing Organization Address City/State/ZIP Code Phon e Number MUSE MUSE NA Prothrombin Time (PT) (05/24/2022 8:00 AM MILK ROUTE SUPERVISOR) athologist Signature Prothrombin 11.4 9.4 - 12.5 05/24/2022 DTL Time, P sec 8:45 AM MILK ROUTE SUPERVISOR INR 1.0 0.9 - 1.1 05/24/2022 DTL 8:45 AM MILK ROUTE SUPERVISOR Comment: ----ADDITIONAL INFORMATION---- Standard intensity warfarin therapeutic range: 2.0 to 3.0 ?? High intensity warfarin therapeutic rang e: 2.5 to 3.5 Specimen Anatomical Collection Method Collection Time Receive d Time (Source) Location / / Volume Laterality Blood (Blood, 05/24/2022 8:00 AM 05/24/20 8:23 Venous) MILK ROUTE SUPERVISOR AM MILK ROUTE SUPERVISOR Antelmo Reese M.D. LAB BLOOD ADD-ON Performing Organization Address City/[facility] Phon e Number [facility] [address] (ABNORMAL) Troponin T, 5th Generation (05/24/2022 8:00 AM MILK ROUTE SUPERVISOR) athologist [facility] Troponin T, 5th 22 (H) <=15 ng/L 05/24/2022 DTL gen 8:57 AM MILK ROUTE SUPERVISOR Specimen Anatomical Collection Method Collection Time Receive d Time (Source) Location / / Volume Laterality Blood (Blood, 05/24/2022 8:00 AM 05/24/20 8:34 Venous) MILK ROUTE SUPERVISOR AM MILK ROUTE SUPERVISOR Antelmo Reese M.D. LAB BLOOD ADD-ON Performing Organization Address City/[facility] Phon e Number [facility] - [address] Lipid Panel (05/24/2022 8:00 AM MILK ROUTE SUPERVISOR) athologist [facility] Triglycerides 83 mg/dL 05/24/2022 DTL 8:54 AM MILK ROUTE SUPERVISOR Comment: ----REFERENCE VALUE---- Normal: <150 mg/dL Borderline High: 150-199 mg/dL High: 200-499 mg/dL Very High: > or =500 mg/dL Cholesterol, Total 126 mg/dL 05/24/2022 8:54 AM CS T DTL Comment: ----REFERENCE VALUE---- Desirable: < 200 mg/dL Borderline High: 200 - 239 mg/dL High: > or = 240 mg/dL Cholesterol, LDL, Calculated 48 mg/dL 05/24/2022 8:54 AM MILK ROUTE SUPERVISOR DTL Comment: ----REFERENCE VALUE---- Desirable: <100 mg/dL Above Desirable: 100-129 mg/dL Borderline High: 130-159 mg/dL High: 160-189 mg/dL Very High: >=190 mg/dL ----ADDITIONAL INFORMATION---- LDL cholesterol calculated using the Mendez/NIH equation. Cholesterol, HDL, S 62 >=40 mg/dL 05/24/2022 8:54 AM MILK ROUTE SUPERVISOR DTL Cholesterol, Non-HDL, Calculated 64 mg/dL 8:54 AM MILK ROUTE SUPERVISOR DTL Comment: ----REFERENCE VALUE---- Desirable: <130 mg/dL Above Desirable: 130-159 mg/dL Borderline High: 160-189 mg/dL High: 190-219 mg/dL Very High: > or =220 mg/dL Fasting (8 HR or more) y 05/24/2022 8:34 A M MILK ROUTE SUPERVISOR DTL Specimen Anatomical Collection Method Collection Time Receive d Time (Source) Location / / Volume Laterality Blood (Blood, 05/24/2022 8:00 AM 05/24/20 8:34 Venous) MILK ROUTE SUPERVISOR AM MILK ROUTE SUPERVISOR Antelmo Reese M.D. LAB BLOOD ADD-ON Performing Organization Address City/State/ZIP Code Phon e Number [facility] - [address] [place], [place] [address] [facility] [place] [address] Laboratories-[facility] [address] (ABNORMAL) Basic Metabolic Panel (05/24/2022 8:00 AM MILK ROUTE SUPERVISOR) Analysis Performed At Patho logist Time Signature Potassium, S 4.1 3.6 - 5.2 05/24/2022 DTL mmol/L 8:54 AM MILK ROUTE SUPERVISOR Sodium, S 136 135 - 145 05/24/2022 DTL mmol/L 8:54 AM MILK ROUTE SUPERVISOR Chloride, S 99 98 - 107 05/24/2022 DTL mmol/L 8:54 AM MILK ROUTE SUPERVISOR Bicarbonate, S 26 22 - 29 05/24/2022 DTL mmol/L 8:54 AM MILK ROUTE SUPERVISOR Anion Gap 11 7 - 15 05/24/2022 DTL 8:54 AM MILK ROUTE SUPERVISOR BUN (Blood Urea 26 (H) 8 - 24 05/24/2022 DTL Nitrogen), S mg/dL 8:54 AM MILK ROUTE SUPERVISOR Creatinine 1.50 (H) 0.74 - 05/24/2022 DTL 1.35 mg/dL 8:54 AM MILK ROUTE SUPERVISOR Estimated GFR 46 (L) >=60 05/24/2022 DTL (eGFR) mL/min/BSA 8:54 AM MILK ROUTE SUPERVISOR Comment: Estimated GFR calculated using the 2020 CKD_EPI creatinine equation. Calcium, Total, S 9.5 8.8 - 10.2 mg/dL 05/24/2022 8:54 AM MILK ROUTE SUPERVISOR DTL Glucose, S 97 70 - 140 mg/dL 05/24/2022 8:54 AM MILK ROUTE SUPERVISOR D TL Specimen Anatomical Collection Method Collection Time Receive d Time (Source) Location / / Volume Laterality Blood (Blood, 05/24/2022 8:00 AM 05/24/20 8:34 Venous) MILK ROUTE SUPERVISOR AM MILK ROUTE SUPERVISOR Antelmo Reese M.D. LAB BLOOD ADD-ON Performing Organization Address City/State/ZIP Code Phon e Number [facility] - 200 [place], [place] [address] [facility] [place] [address] [facility] 200 [facility] (ABNORMAL) CBC with Differential, Blood (05/24/2022 8:00 AM MILK ROUTE SUPERVISOR) [facility] gist Method Time Signature Hemoglobin 12.4 (L) 13.2 - 05/24/2022 DTL 16.6 g/dL 8:47 AM MILK ROUTE SUPERVISOR Hematocrit 37.8 (L) 38.3 - 05/24/2022 DTL 48.6 % 8:47 AM MILK ROUTE SUPERVISOR Erythrocytes 4.06 (L) 4.35 - 05/24/2022 DTL 5.65 8:47 AM MILK ROUTE SUPERVISOR x10(12)/L MCV 93.1 78.2 - 05/24/2022 DTL 97.9 fL 8:47 AM MILK ROUTE SUPERVISOR RBC Distrib Width 12.9 11.8 - 05/24/2022 DTL 14.5 % 8:47 AM MILK ROUTE SUPERVISOR Platelet Count 202 135 - 317 05/24/2022 DTL x10(9)/L 8:47 AM MILK ROUTE SUPERVISOR Leukocytes 8.2 3.4 - 9.6 05/24/2022 DTL x10(9)/L 8:47 AM MILK ROUTE SUPERVISOR Neutrophils 5.60 1.56 - 05/24/2022 DTL 6.45 8:47 AM MILK ROUTE SUPERVISOR x10(9)/L Lymphocytes 1.11 0.95 - 05/24/2022 DTL 3.07 8:47 AM MILK ROUTE SUPERVISOR x10(9)/L Monocytes 0.75 0.26 - 05/24/2022 DTL 0.81 8:47 AM MILK ROUTE SUPERVISOR x10(9)/L Eosinophils 0.70 (H) 0.03 - 05/24/2022 DTL 0.48 8:47 AM MILK ROUTE SUPERVISOR x10(9)/L Basophils 0.05 0.01 - 05/24/2022 DTL 0.08 8:47 AM MILK ROUTE SUPERVISOR x10(9)/L Specimen Anatomical Collection Method Collection Time Receive d Time (Source) Location / / Volume Laterality Blood (Blood, 05/24/2022 8:00 AM 05/24/20 22 8:24 Venous) MILK ROUTE SUPERVISOR AM MILK ROUTE SUPERVISOR Antelmo Reese M.D. LAB BLOOD ADD-ON Performing Organization Address City/State/ZIP Code Phon e Number [facility] - 200 [place], [place] [address] [facility] [place] [address] [facility] [address] [facility] documented in this encounter Visit Diagnoses Diagnosis Angina Pectoris Unspecified (HCC) - Prim marybel Angina Pectoris Unspecified (HCC) Angina Pectoris Unspecified (HCC) documented in this encounter
--- OUTSIDE RECORDS SUMMARY | 2022-06-04 18:07 | XMS_ITS | Encounter Summary ---
:1940 Author Organization [facility] Address [address] [place] [address] Care Team Providers Name Role Phone Unavailable Primary Care Provider Unavailable Reason for Visit Reason Comments Chest Pain Encounter Details Date Type Department Care Team Description 05/22/2022 Clinical Communication Division of Nephrology Antelmo Reese Chest Pain and Hypertension in R, M.D. [place], [place] [address] [facility] [[email or web address]] [address] [place] [phone] Social History Tobacco Use Types Packs/Day Years [...] 05/23/2022 relatives? How often do you attend zoroastrian or protestant Never 05/23/2022 services? Do you belong to any clubs or organizations such as No 05/23/2022 zoroastrian groups, unions, fraternal or athletic groups, or [...] this encounter Miscellaneous Notes Telephone Encounter - Yaneth Walsh I. - 05/22/2022 9:56 AM CST Caller is: patient Preferred Communication Method: [phone] (home) Reason for call: Patient experienced severe chest pain last night. He took nitroglycerin and pain resolved. He is wondering if he needs to follow up on this with appointments. He did not go seek medical help at all. 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
--- OUTSIDE RECORDS SUMMARY | 2022-06-04 18:07 | XMS_ITS | Encounter Summary ---
:1940 Author Organization [facility] Address [address] [place] [address] Care Team Providers Name Role Phone Unavailable Primary Care Provider Unavailable Reason for Referral Outpatient (Routine) - Closed Specialty Diagnoses / Procedures Referred By Contact Refer red To Contact Diagnoses Angina Pectoris Unspecified (HCC) Antelmo Reese M.D. [facility] Procedures Echo Stress [address] [place] [phone] Referral ID Status Reason Start Date Expiration Date Visits Requ ested Visits Authorized [id number] Closed 05/22/2022 05/22/2023 1 1 AR TURNER OPERATOR Reason for Visit Outpatient (Routine) - Closed Specialty Diagnoses / Procedures Referred By Contact Refer red To Contact Diagnoses Angina Pectoris Unspecified (HCC) Antelmo Reese M.D. [facility] Procedures Echo Stress [address] [place] [phone] Referral ID Status Reason Start Date Expiration Date Visits Requ ested Visits Authorized [id number] Closed 05/22/2022 05/22/2023 1 1 Encounter Details Date Type Department Care Team Description 05/25/2022 Hospital Encounter Department of Jennifer Reese P ectoris Cardiovascular Diseases Antelmo Clayton M.D. Unspecified (HCC) in [facility] quotation clerk [address] [place] [phone] Social History Tobacco Use Types Packs/Day Years [...] 05/23/2022 relatives? How often do you attend advent or oriental orthodox Never 05/23/2022 services? Do you belong to any clubs or organizations such as No 05/23/2022 advent groups, unions, fraternal or athletic groups, or [...] place to sleep or slept in a jail (including now)? Education Answer Date Recorded What [...] encounter Procedures Procedure Name Priority Date/Time Associated Diagnosis Comme nts ECHO STRESS 2D WITH Routine 05/25/2022 8:59 AM Angina Pectoris Results for this COLOR, DOPPLER AND COLLAR TURNER OPERATOR Unspecified (HCC) proc edure are in CONTRAST the results section. documented in this encounter Results ECHO STRESS 2D WITH COLOR, DOPPLER AND CONTRAST (05/25/2022 8:59 AM COLLAR TURNER OPERATOR) [facility] gist Method Time Signature Ejection Fraction 55 MC [...] / / Volume Laterality 05/25/2022 7:18 AM COLLAR TURNER OPERATOR Impressions 05/25/2022 9:49 AM COLLAR TURNER OPERATOR STRESS TEST:Dobutamine was infused from 5 mcg/kg/min [...] infusion (5 beat run). Please see Thad shahid Notes for additional information. REST IMAGES: LEFT [...] For the complete report, see the [employer] Documents. Narrative 05/25/2022 9:49 AM COLLAR TURNER OPERATOR For the complete report, see the Order-Level [...] ties with stress. Procedure Note Shannon Cedeño M.B.B.S., Ph.D. - 06/2021 For the complete report, see the [employer] Documents. Hemodynamics Heart Rate: 73 BPM Blood [...] due to target heart rate achievement. The seline ECG demonstrated sinus rhythm. The baseline [...] Documents. Antelmo Reese M.D. CV ECHO PROCEDURES documented in this encounter Visit Diagnoses Diagnosis Angina Pectoris Unspecified (HCC) documented in this encounter Administered Medications Inactive Administered Medications - up to 3 most recent administrations Medication Order MAR Action Action Date Dose Rate Site atropine injection 0.5 mg Given 05/25/2022 9:05 AM COLLAR TURNER OPERATOR 0.5 mg 0.5 mg, intravenous, As needed, See protocol, Starting on Taniya 05/25/22 at 0859, Intraprocedure - Diagnostic DOBUTamine 1,000 mcg/mL in D5W 250 mL New Bag 05/25/2022 9:[address] 26.6 mg infusion 26.6 mg (DOBUTREX) 26.6 mg, intravenous, Once, On Taniya 05/25/22 at 0915, For 1 dose, Intraprocedure - Diagnostic, Infusion rate: 5-40 mcg/kg/min - see protocol. 250 mg in 250 mL perflutren lipid microspheres injection Given 05/25/2022 9:05 AM COLLAR TURNER OPERATOR 1.5 mL (DEFINITY) intravenous, Once in imaging, contrast, Starting on Taniya 05/25/22 at 0859, For 1 dose, Intraprocedure - Diagnostic, See protocol. sodium chloride 0.9 % injection 10 mL Given 05/25/2022 9:05 AM COLLAR TURNER OPERATOR 10 mL 10 mL, intravenous, As needed, line care, Starting on Taniya 05/25/22 at 0859, Intraprocedure - Diagnostic, Prior to and following infusion and between multiple consecutive infusions: sodium chloride 0.9 % injection documented in this encounter
--- OUTSIDE RECORDS SUMMARY | 2022-06-04 18:07 | XMS_ITS | Encounter Summary ---
:1940 Author Organization [facility] Address [address] [place] [id number] Care Team Providers Name Role Phone Unavailable Primary Care Provider Unavailable Reason for Visit Reason Comments Med Refill Encounter Details Date Type Department Care Team Description 05/03/2022 Refill Division of Nephrology and Antelmo White M.D. Med Refill Hypertension in [address] [id number] [place] [address] [place] [address] [phone] Social History Tobacco Use Types Packs/Day Years [...] 05/23/2022 relatives? How often do you attend islam or jewish Never 05/23/2022 services? Do you belong to any clubs or organizations such as No 05/23/2022 islam groups, unions, fraternal or athletic groups, or [...] place to sleep or slept in a group home (including now)? Education Answer Date Recorded What is the highest level of school you have completed or 12 th grade 03/04/2019 the highest degree you have received? Sex Assigned at Date Recorded Male 04/08/2018 12:55 PM CDT documented as of this encounter Plan of Treatment Not on filedocumented as of this encounter Visit Diagnoses Diagnosis Pain Hip Bilateral Other Chronic Pain documented in this encounter
--- OUTSIDE RECORDS SUMMARY | 2022-06-04 18:07 | XMS_ITS | Clinical Summary ---
:1940 Author Organization [facility] Address [address] [place] [address] Care Team Providers Name Role Phone Unavailable Primary Care Provider Unavailable Source Comments Patient records contain information from all sites at [facility]. For routine questions regarding patient records, call [phone] during business hours, M-F 8:00 AM - 5:00 PM Central Time. Record requests for emergency care only can be directed to [phone] at any time.[facility] Allergies No known active allergies Medications Medication Sig Dispensed Refills Start Date End Date Status POLYETHYLENE GLYCOL Take 1 g by mouth 0 11/17/2016 Active 3350 ORAL daily. MiraLAX powder lanolin/mineral Administer 1 drop 0 04/06/2015 Active oil/petrolatum into affected (ARTIFICIAL TEARS eye(s) as needed. OPHT) As needed (both eyes). aspirin 325 mg Take 1 tablet by 0 09/23/2014 Active tablet mouth daily. acetaminophen Take 1-2 tablets 0 09/08/2013 Active (TYLENOL) 500 mg by mouth 3 (three) tablet times a day as needed. pain loratadine Take 10 mg by 0 Activ e (CLARITIN) 10 mg mouth daily. tablet nitroglycerin Place 1 tablet 25 tablet 11 12/24/2020 Active (NITROSTAT) 0.4 mg (0.4 mg total) SL under the tongue tabletIndications: every 5 (five) Coronary Artery minutes as needed Disease Without for chest pain. Angina Pectoris Place 1 tab under the tongue at first sign of chest pain. If no relief in 5 min, call 911. Repeat dose every 5 min up to 2 additional doses if chest pain continues. rosuvastatin TAKE ONE TABLET BY 90 tablet 3 02/08/2022 Active (CRESTOR) 10 mg MOUTH IN THE tabletIndications: EVENING Coronary Artery Disease Without Angina Pectoris amLODIPine (NORVASC) TAKE ONE TABLET BY 90 tablet 3 02/08/2022 Active 2.5 mg MOUTH ONE TIME tabletIndications: DAILY Hypertension Personal History tamsulosin (FLOMAX) TAKE ONE CAPSULE 90 capsule 3 02/08/2022 Active 0.4 mg 24 hr BY MOUTH ONE TIME capsuleIndications: DAILY Benign Prostatic Hyperplasia Without Obstruction sertraline (ZOLOFT) TAKE ONE TABLET BY 90 tablet 3 02/08/2022 Active 50 mg MOUTH ONE TIME tabletIndications: DAILY Hypertension Essential Primary zolpidem (AMBIEN) 10 TAKE ONE TABLET BY 90 tablet 3 02/08/2022 Active mg MOUTH ONE TIME tabletIndications: DAILY AT BEDTIME Insomnia miconazole (MICATIN) Apply 1 28.35 g 1 03/02/2022 Active 2 % cream application topically 2 (two) times a day. Apply to right armpit twice daily. finasteride Take 1 tablet (5 100 tablet 3 04/29/2022 3 Active (PROSCAR) 5 mg mg total) by mouth tabletIndications: daily. Benign Prostatic Hyperplasia Without Obstruction losartan-hydroCHLORO Take 1 tablet by 100 tablet 3 04/29/2022 04/29/2023 Active thiazide (HYZAAR) mouth every 100-25 mg per morning. tabletIndications: Hypertension Personal History carvediloL (COREG) Take 1 tablet 200 tablet 3 04/29/202204/29 Active 12.5 mg (12.5 mg total) by tabletIndications: mouth 2 (two) Hypertension times a day with Personal History meals. traMADoL (ULTRAM) 50 Take 1 tablet (50 270 tablet 1 05/03/2022 Active mg mg total) by mouth tabletIndications: 3 (three) times a Chronic day Indications: Pain/Nonacute Pain Chronic Pain/Nonacute Pain. carvediloL (COREG) Take 1 tablet 200 tablet 3 05/26/202205/26 Active 6.25 mg tablet (6.25 mg total) by mouth 2 (two) times a day with meals. 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 05/25/2022 Hospital Encounter Cardiovascular Disease Hugh, Angina Pectoris Celia Petersonified (HC C) Yaw 05/24/2022 Office Visit Nephrology and Hugh, Angina Pector is Hypertension Antelmo Clayton Unspecified (HC C) Yaw (Primary Dx) 05/24/2022 Hospital Encounter Radiology Hugh, Angina Pe ctoris Antelmo Clayton, Unspecified (HC C) Yaw 05/24/2022 Hospital Encounter Laboratory Medicine Hugh, An ottoinel Pectoris Carlos Peterson (HC C) Yaw 05/24/2022 Orders Only Nephrology and Hugh, Hypertension Antelmo Clayton M.D. 05/22/2022 Orders Only Nephrology and Hugh, Angina Pector is Hypertension Antelmo Clayton, Unspecified (HC C) Yaw (Primary Dx) 05/22/2022 Clinical Nephrology and Hugh, Communication Hypertension Antelmo Clayton M.D. 05/22/2022 Clinical Nephrology and Hugh, Chest Pain Communication Hypertension Antelmo Clayton M.D. 05/03/2022 Refill Nephrology and Hugh Med Refill Hypertension Antelmo Clayton M.D. 04/29/2022 Orders Only Dialysis Hugh, Benign Prostati c Hyperplasia Without Obstruction; Antelmo R, Hypertension Pe rsonal Dee Tidwell 04/26/2022 Refill Nephrology and Hugh Med Refill Hypertension Antelmo Clayton M.D. from Last 3 Months Immunizations Name Administration Dates Next Due HZV (ZOSTAVAX) 03/02/2009 Influenza (IM) Preservative Free 03/15/2009 Influenza Split 03/25/2008, 03/25/2007 PCV13 04/12/2015 PPSV23 03/25/2006 Td, (Adult) Unspecified 03/25/2009, 06/25/2000, 08/23/1998 Tdap 04/11/2012 influenza high dose (65 years or 04/15/2019, 04/16/2017, , older) (PF) 04/12/2015, 04/08/2014, 04/07/2013, 04/11/2012, 04/12/2011, 04/20/2010 Family History Medical History Relation Name Comments Alcohol abuse Father MYRNA BALDERAS Diabetes Father MYRNA BALDERAS Suicide Attempts Father MYRNA BALDERAS Arthritis Mother DRE PAULY Colon cancer Mother DRE PAULY Hyperlipidemia Mother DRE PAULY Hypertension Mother DRE PAULY Osteoporosis Mother DRE PAULY Stroke Mother DRE PAULY Transient ischemic attack Mother DRE PAULY Skin cancer Sister OMID DOE Sleep apnea Sister OMID DOE Blindness Neg Hx Glaucoma Neg Hx Macular degeneration Neg Hx Vision loss Neg Hx Relation Name Status Comments Father MYRNA BALDERAS Mother DRE DOE Social History Tobacco Use Types Packs/Day Years Used Date Smoking Tobacco: Former Cigarettes 1 60 06/0 06/1955 - 11/19/2004 Smokeless Tobacco: Never Tobacco Cessation: Counseling Given: Not Answered Alcohol Use Standard Drinks/Week Comments No 0 [...] 05/23/2022 relatives? How often do you attend rastafarian or yazdanism Never 05/23/2022 services? Do you belong to any clubs or organizations such as No 05/23/2022 rastafarian groups, unions, fraternal or athletic groups, or [...] place to sleep or slept in a care home (including now)? Education Answer Date Recorded What is the highest level of school you have Some college, n o degree 05/22/2022 completed or the highest degree you have received? Sex Assigned at Date Recorded Male 04/08/2018 12:55 PM CDT Last Filed Vital Signs Vital Sign Reading Time Taken Comments Blood Pressure 108/61 05/24/2022 10:43 AM [facility] Pulse 71 05/24/2022 10:43 AM [facility] Temperature 36.1 ??C (97 ??F) 05/24/2022 10:43 AM [facility] Respiratory Rate 11 04/11/2018 3:45 PM CDT Oxygen Saturation 100% 05/11/2021 1:14 PM [facility] Inhaled Oxygen Concentration - - Weight 90.9 kg (200 lb 4.6 oz) 05/24/2022 10:43 AM [facility] Height 177.5 cm (5' 9.88) 05/24/2022 10:43 AM [facility] Body Mass Index 28.84 05/24/2022 10:43 AM [facility] Plan of Treatment Health Maintenance Due Date Last Done Comments Depression Screening (Annual 06/25/2021 PHQ-2) Fall Risk Screen (Annual) 06/25/2021 COVID-19 Vaccine (5 - Booster for 12/20/2021 10/25/2021, , Pfizer series) 08/31/2020, Additional history exists DTaP,Tdap,and Td Vaccines (2 - Td 04/11/2022 04/11/2012, , or Tdap) 03/25/2009, Additional history exists PEG assessment for Opioid therapy 08/03/2022 05/03/2022 Controlled Substance Agreement 01/27/2023 01/27/2022 Controlled Substance Monitoring 01/27/2023 01/27/2022 (PHQ-9) Generalized Anxiety (RUTH-7) 01/27/2023 01/27/2022 Opioid Risk Assessment 01/27/2023 01/27/2022 Controlled Substance Monitoring 01/29/2023 01/29/2022 Creatinine Level 05/24/2023 05/24/2022, 01/27/2022, 12/24/2020, Additional history exists Office Visit for Blood Pressure 05/24/2023 05/24/2022 Check / Re-check Potassium Level 05/24/2023 05/24/2022, 01/27/2022, 12/24/2020, Additional history exists Sodium Level 05/24/2023 05/24/2022, 01/27/2022, 12/24/2020, Additional history exists Pneumococcal vaccine (65+ years) Completed 04/12/2015, 06/2005, 04/14/2005 Colonoscopy Discontinued 04/11/2018, 04/11/2018, 03/17/2011, Additional history exists Colorectal Cancer Surveillance Discontinued Zoster Vaccines Completed 02/11/2020, 12/09/2019, 03/02/2009 Influenza Vaccine Completed 04/23/2022, 04/05/2021, 04/15/2019, Additional history exists CT Colonography Discontinued Cologuard Discontinued Medical Devices Implanted Type Area Sales Operations Lead Device Shelf Model / Identifier Expiration Serial / Date Lot Depuy Stem Femoral Corail Kla12 - Trevizo [id number] Hip Left: Mehrdad kruger & Implanted: Qty: 1 on 09/09/2013 Implant Other/Legacy - [employer] Description Description: Device Sales Operations Lead - [employer] Blaze. Body Location - Left. Device Status Text - HIP [id number]. 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 Body Location - Left. Device Status Text - [id number]. Lens 6.0x21.0 [id number]-03.0 - Tyronza [id number] Ocular Lens Right: O ther/Legacy - [employer] Implanted: Qty: 1 on 03/31/2011 See Implant Description Description: Device Sales Operations Lead - [employer]. Body Location - Right. Device Status Text - [id number]. Procedures Procedure Name Priority Date/Time Associated Comments Diagnosis ECHO STRESS 2D Routine 05/25/2022 8:59 Angina Pectoris Results for this WITH COLOR, AM [facility] Unspecified (HCC) procedure are in DOPPLER AND the results CONTRAST section. DX CHEST AP OR PA RAD - Routine 05/24/2022 9:09 Angina Pectoris Res ults for this AND LATERAL 2 (most inpatients AM [facility] Unspecified (HCC) proce dure are in VIEWS and all the results outpatients) section. ECG Routine 05/24/2022 8:27 Angina Pectoris Results f or this AM [facility] Unspecified (HCC) procedure are in the results section. PROTHROMBIN TIME Routine 05/24/2022 8:00 Angina Pectoris Resul ts for this (PT), P AM [facility] Unspecified (HCC) procedure are in the results section. TROPONIN T, 5TH Routine 05/24/2022 8:00 Angina Pectoris Result s for this GEN, P AM [facility] Unspecified (HCC) procedure are in the results section. LIPID PANEL, S Routine 05/24/2022 8:00 Angina Pectoris Results for this AM [facility] Unspecified (HCC) procedure are in the results section. BASIC METABOLIC Routine 05/24/2022 8:00 Angina Pectoris Result s for this PANEL, S/P AM [facility] Unspecified (HCC) procedure are in the results section. CBC WITH Routine 05/24/2022 8:00 Angina Pectoris Results f or this DIFFERENTIAL, B AM [facility] Unspecified (HCC) procedu re are in the results section. from Last 3 Months Results ECHO STRESS 2D WITH COLOR, DOPPLER AND CONTRAST (05/25/2022 8:59 AM [facility]) [facility] Method Time Signature Ejection Fraction 55 MC [...] / / Volume Laterality 05/25/2022 7:18 AM [facility] Impressions 05/25/2022 9:49 AM [facility] STRESS TEST:Dobutamine was infused from 5 mcg/kg/min [...] infusion (5 beat run). Please see Thad g Notes for additional information. REST IMAGES: LEFT [...] effusion. For the complete report, see the Jannet-Aurelia cardona Documents. Narrative 05/25/2022 9:49 AM [facility] For the complete report, see the Order-Level [...] complete report, see the Order-L evel Documents. Hemodynamics Heart Rate: 73 BPM Blood [...] and Lateral 2 Views (05/24/2022 9:09 AM [facility]) Anatomical Region Laterality Modality Chest, Thoracic RST LOS, Thoracic ARZ LOS, Thoracic N/A Digital Radiography FLA LOS Specimen (Source) Anatomical Collection Method Collection Time Re ceived Time Location / / Volume Laterality 05/24/2022 9:16 AM [facility] Impressions 05/24/2022 9:26 AM [facility] Comparison chest radiograph 02/25/2014. The nodular opacity projected over the upper thoracic spine on the previous exam is n o longer identified. Mildly tortuous aorta with calcification. Right cardiac fat pad. Os teophytic changes of the spine. Otherwise, negative chest. Narrative 05/24/2022 9:26 AM [facility] EXAM: ??DX CHEST AP OR PA AND [...] Antelmo Reese M.D. IMG DIAGNOSTIC IMAGING PROCE [facility] ECG 12 Lead (05/24/2022 8:27 AM [facility]) P athologist Signature Ventricular Rate 83 BPM MUSE ECG/Min IN Interval 170 ms MUSE QRSD Interval 94 ms MUSE QT Interval 380 ms MUSE QTC Interval 446 ms MUSE P [place] 27 degrees MUSE R [place] 34 degrees MUSE T Wave [place] 78 degrees MUSE Specimen Anatomical Collection Method Collection Time Receive d Time (Source) Location / / Volume Laterality 05/24/2022 8:27 AM 8:46 [facility] AM [facility] Impressions MUSE - 05/24/2022 8:46 AM [facility] Sinus rhythm Premature ventricular complexes Left atrial [...] longer present Reviewed by MARTINA Green Antelmo Reese M.D. ECG ORDERABLES Performing Organization Address City/State/ZIP Code Phon e Number MUSE MUSE NA Lipid Panel (05/24/2022 8:00 AM [facility]) P athologist Signature Triglycerides 83 mg/dL 05/24/2022 DTL 8:54 AM [facility] Comment: ----REFERENCE VALUE---- Normal: <150 mg/dL Borderline High: 150-199 mg/dL High: 200-499 mg/dL Very High: > or =500 mg/dL Cholesterol, Total 126 mg/dL 05/24/2022 8:54 AM T DTL Comment: ----REFERENCE VALUE---- Desirable: < 200 mg/dL Borderline High: 200 - 239 mg/dL High: > or = 240 mg/dL Cholesterol, LDL, Calculated 48 mg/dL 05/24/2022 8:54 AM [facility] DTL Comment: ----REFERENCE VALUE---- Desirable: <100 mg/dL Above Desirable: 100-129 mg/dL Borderline High: 130-159 mg/dL High: 160-189 mg/dL Very High: >=190 mg/dL ----ADDITIONAL INFORMATION---- LDL cholesterol calculated using the Mendez/NIH equation. Cholesterol, HDL, S 62 >=40 mg/dL 05/24/2022 8:54 AM [facility] DTL Cholesterol, Non-HDL, Calculated 64 mg/dL 8:54 AM [facility] DTL Comment: ----REFERENCE VALUE---- Desirable: <130 mg/dL Above Desirable: 130-159 mg/dL Borderline High: 160-189 mg/dL High: 190-219 mg/dL Very High: > or =220 mg/dL Fasting (8 HR or more) y 05/24/2022 8:34 A M [employer] [employer] [employer] DTL Specimen Anatomical Collection Method Collection Time Receive d Time (Source) Location / / Volume Laterality Blood (Blood, 05/24/2022 8:00 AM 05/24/20 8:34 Venous) [facility] AM [facility] Antelmo Reese M.D. LAB BLOOD ADD-ON Performing Organization Address [facility] Phon e Number [facility] [address] Prothrombin Time (PT) (05/24/2022 8:00 AM [facility]) P athologist Signature Prothrombin 11.4 9.4 - 12.5 05/24/2022 DTL Time, P sec 8:45 AM [facility] INR 1.0 0.9 - 1.1 05/24/2022 DT 8:45 AM [facility] Comment: ----ADDITIONAL INFORMATION---- Standard intensity warfarin therapeutic range: 2.0 to 3.0 ?? High intensity warfarin therapeutic rang e: 2.5 to 3.5 Specimen Anatomical Collection Method Collection Time Receive d Time (Source) Location / / Volume Laterality Blood (Blood, 05/24/2022 8:00 AM 05/24/20 22 8:23 Venous) [facility] AM [facility] Antelmo Reese M.D. LAB BLOOD ADD-ON Performing Organization Address [facility] Phon e Number [facility] [address] (ABNORMAL) CBC with Differential, Blood (05/24/2022 8:00 AM [facility]) Patholo gist Method Time Signature Hemoglobin 12.4 (L) 13.2 - 05/24/2022 DTL 16.6 g/dL 8:47 AM [facility] Hematocrit 37.8 (L) 38.3 - 05/24/2022 DTL 48.6 % 8:47 AM [facility] Erythrocytes 4.06 (L) 4.35 - 05/24/2022 DTL 5.65 8:47 AM [facility] x10(12)/L MCV 93.1 78.2 - 05/24/2022 DTL 97.9 fL 8:47 AM [facility] RBC Distrib Width 12.9 11.8 - 05/24/2022 DTL 14.5 % 8:47 AM [facility] Platelet Count 202 135 - 317 05/24/2022 DTL x10(9)/L 8:47 AM [facility] Leukocytes 8.2 3.4 - 9.6 05/24/2022 DTL x10(9)/L 8:47 AM [facility] Neutrophils 5.60 1.56 - 05/24/2022 DTL 6.45 8:47 AM [facility] x10(9)/L Lymphocytes 1.11 0.95 - 05/24/2022 DTL 3.07 8:47 AM [facility] x10(9)/L Monocytes 0.75 0.26 - 05/24/2022 DTL 0.81 8:47 AM [facility] x10(9)/L Eosinophils 0.70 (H) 0.03 - 05/24/2022 DTL 0.48 8:47 AM [facility] x10(9)/L Basophils 0.05 0.01 - 05/24/2022 DTL 0.08 8:47 AM [facility] x10(9)/L Specimen Anatomical Collection Method Collection Time Receive d Time (Source) Location / / Volume Laterality Blood (Blood, 05/24/2022 8:00 AM 05/24/20 22 8:24 Venous) [facility] AM [facility] Antelmo Reese M.D. LAB BLOOD ADD-ON Performing Organization Address City/State/ZIP Code Phon e Number [facility] - [address] [place], [place] [address] [facility] [place] [address] [facility] [address] (ABNORMAL) Troponin T, 5th Generation (05/24/2022 8:00 AM [facility]) athologist Signature Troponin T, 11 13 (H) <=15 ng/L 05/24/2022 DTL gen 8:57 AM [facility] Specimen Anatomical Collection Method Collection Time Receive d Time (Source) Location / / Volume Laterality Blood (Blood, 05/24/2022 8:00 AM 05/24/20 8:34 Venous) [facility] AM [facility] Antelmo Reese M.D. LAB BLOOD ADD-ON Performing Organization Address City/State/ZIP Code Phon e Number [facility] - [address] [place], [place] [address] [facility] [place] [address] [facility] [address] [facility] (ABNORMAL) Basic Metabolic Panel (05/24/2022 8:00 AM [facility]) Analysis Performed At Patho logist Time Signature Potassium, S 4.1 3.6 - 5.2 05/24/2022 DTL mmol/L 8:54 AM [facility] Sodium, S 136 135 - 145 05/24/2022 DTL mmol/L 8:54 AM [facility] Chloride, S 99 98 - 107 05/24/2022 DTL mmol/L 8:54 AM [facility] Bicarbonate, S 26 22 - 29 05/24/2022 DTL mmol/L 8:54 AM [facility] Anion Gap 11 7 - 15 05/24/2022 DTL 8:54 AM [facility] BUN (Blood Urea 26 (H) 8 - 24 05/24/2022 DTL Nitrogen), S mg/dL 8:54 AM [facility] Creatinine 1.50 (H) 0.74 - 05/24/2022 DTL 1.35 mg/dL 8:54 AM [facility] Estimated GFR 46 (L) >=60 05/24/2022 DTL (eGFR) mL/min/BSA 8:54 AM [facility] Comment: Estimated GFR calculated using the 2020 CKD_EPI creatinine equation. Calcium, Total, S 9.5 8.8 - 10.2 mg/dL 05/24/2022 8:54 AM [facility] DTL Glucose, S 97 70 - 140 mg/dL 05/24/2022 8:54 AM [facility] D TL Specimen Anatomical Collection Method Collection Time Receive d Time (Source) Location / / Volume Laterality Blood (Blood, 05/24/2022 8:00 AM 05/24/20 8:34 Venous) [facility] AM [facility] Antelmo Reese M.D. LAB BLOOD ADD-ON Performing Organization Address City/State/ZIP Code Phon e Number [facility] - [address] [place], [place] [address] [facility] [place] [address] [facility] [address] from Last 3 Months Insurance Payer Benefit Plan / Subscriber ID Effective Phone Address T ype Group Dates MEDICARE MEDICARE A AND [id number] 2004-Prese [address] [place] [address] MEDICA MEDICA PRIME [id number] 2019-Prese [phone] [address] [place] [address] Advance Directives For more information, please contact: [phone] Documents on File Type Date Recorded 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 See document viewer. Advance Directives 06/19/2006 12:00 AM Jermainacy do corbett. See document viewer. Advance Directives 12/13/2004 12:00 AM Legacy doc ument. See document viewer.
--- OUTSIDE RECORDS SUMMARY | 2022-06-04 18:07 | XMS_ITS | Encounter Summary ---
:1940 Author Organization [facility] Address [address] [place] [address] Care Team Providers Name Role Phone Unavailable Primary Care Provider Unavailable Reason for Visit Reason Comments Hypertension Appointment Request (Routine) - Closed Specialty Diagnoses / Procedures Referred By Contact Refer red To Contact Nephrology and Diagnoses Hypertension Essential Primary Hypertension Referral ID Status Reason Start Date Expiration Date Visits Requ ested Visits Authorized [id number] Closed 05/22/2022 05/22/2023 1 Encounter Details Date Type Department Care Team Description 05/24/2022 Office Visit Division of Nephrology Antelmo Reese ottoniel Pectoris and Hypertension in R, M.D. Unspecified (FORMERLY [facility]) [place], [place] 200 [facility] (Primary Dx) 200 [place] [phone] Social History Tobacco Use Types Packs/Day Years [...] 05/23/2022 relatives? How often do you attend baptist or mosque Never 05/23/2022 services? Do you belong to any clubs or organizations such as No 05/23/2022 baptist groups, unions, fraternal or athletic groups, or [...] place to sleep or slept in a retirement (including now)? Education Answer Date Recorded What is the highest level of school you have Some college, n o degree 05/22/2022 completed or the highest degree you have received? Sex Assigned at Date Recorded Male 04/08/2018 12:55 PM CDT documented as of this encounter Last Filed Vital Signs Vital Sign Reading Time Taken Comments Blood Pressure 108/61 05/24/2022 10:43 AM BULLET SLUGS INSPECTOR Pulse 71 05/24/2022 10:43 AM BULLET SLUGS INSPECTOR Temperature 36.1 ??C (97 ??F) 05/24/2022 10:43 AM BULLET SLUGS INSPECTOR Respiratory Rate - - Oxygen Saturation - - Inhaled Oxygen Concentration - - Weight 90.9 kg (200 lb 4.6 oz) 05/24/2022 10:43 AM BULLET SLUGS INSPECTOR Height 177.5 cm (5' 9.88) 05/24/2022 10:43 AM BULLET SLUGS INSPECTOR Body Mass Index 28.84 05/24/2022 10:43 AM BULLET SLUGS INSPECTOR documented in this encounter H&P Notes Antelmo Reese M.D. - 05/24/2022 11:15 AM CST REFERRAL SOURCE Self REASON FOR VISIT Chest pain. HISTORY OF PRESENT ILLNESS It was a pleasure to see Mr. Merrill , who is a very pleasant 81 y.o. I also visited with his . On May 20 he noted left anterior chest pain, which was more severe than previous episodes. He took 2 nitroglycerin tablets. He took a third nitroglycerin tablet and the pain resolved. The whole episode lasted less than an hour. Since then he has done well no more chest pain He has coronary heart disease with rare chest pain. He estimates that he gets chest pain about once every 2 years. He has some chronic dyspnea with exertion, which has not changed. PAST MEDICAL HISTORY 1. 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 2. Coronary heart disease. He rarely has chest pain. 3. Chronic bilateral buttock pain. He takes tramadol. 4. Chronic insomnia. Zolpidem works well. 5. Hyperlipidemia 6. Benign prostatic hyperplasia. 7. Left total hip arthroplasty. 8. Hypertension. 9. Peripheral arterial disease. 10. Trochanteric bursitis. REVIEW OF SYSTEMS VITAL SIGNS BP 108/61 Pulse 71 Temp 36.1 ??C Ht 177.5 cm Wt 90.9 kg BMI 28.84 kg/m?? PHYSICAL EXAMINATION Constitutional Comments: Very pleasant. Healthy. Cardiovascular Rate and Rhythm: Normal rate and regular rhythm. Heart sounds: Normal heart sounds. No murmur heard. Pulmonary Effort: Pulmonary effort is normal. No respiratory distress. Breath sounds: Normal breath sounds. Abdominal General: Abdomen is flat. Palpations: Abdomen is soft. Musculoskeletal Right lower leg: No edema. Left lower leg: No edema. Comments: Tenderness over the lateral right hip. LAB RESULTS CBC normal. Creatinine stable at 1.5. Chemistries otherwise normal. Troponin slightly elevated at 22. ECG shows old inferior infarct. Chest x-ray shows normal heart size and clear lungs. IMPRESSION 1. A recent episode of chest pain. He had an episode of chest pain on May 21, but no episodes since. He has known coronary heart disease, and rarely has chest pain. Tests so far are satisfactory. 2. Hypertension. Home blood pressures have been mildly elevated. PLAN AND RECOMMENDATIONS Stress test and cardiology consultation. I discussed possible outcomes with the patient and his . Possibly he will need an angiogram. If not, medical management could consists of a higher dose of the carvedilol. I reviewed the above with the patient and his . [Addendum 05/26/2022: Phone call to the patient. The dobutamine stress echo was normal. That is a good sign. To help lower the chance for more chest pain and to improve the blood pressure, I will increase the carvedilol from 12.5 mg twice a day to 18.75 mg twice a day.] Antelmo Reese M.D. ET SLUGS INSPECTOR documented in this encounter Plan of Treatment Not on filedocumented as of this encounter Visit Diagnoses Diagnosis Angina Pectoris Unspecified (HCC) - Prim marybel documented in this encounter
--- OUTSIDE RECORDS SUMMARY | 2022-06-04 18:07 | XMS_ITS | Encounter Summary ---
:1940 Author Organization [facility] Address [address] [place] [address] Care Team Providers Name Role Phone Unavailable Primary Care Provider Unavailable Encounter Details Date Type Department Care Team Description 04/29/2022 Orders Only Division of Nephrology Antelmo Reese Prostatic Hyperplasia Without Obstruction; and Hypertension, R MLavelle Hypertension Personal History [facility], in [address] [place], [place] [address] [id number] [place], [place] [phone] (Work) [phone] Social History Tobacco Use Types Packs/Day Years [...] 05/23/2022 relatives? How often do you attend worship or tenriism Never 05/23/2022 services? Do you belong to any clubs or organizations such as No 05/23/2022 worship groups, unions, fraternal or athletic groups, or [...] place to sleep or slept in a fpc (including now)? Education Answer Date Recorded What is the highest level of school you have completed or 12 th grade 03/04/2019 the highest degree you have received? Sex Assigned at Date Recorded Male 04/08/2018 12:55 PM CDT documented as of this encounter Plan of Treatment Not on filedocumented as of this encounter Visit Diagnoses Diagnosis Benign Prostatic Hyperplasia Without Obs truction Hypertension Personal History documented in this encounter
--- OUTSIDE RECORDS SUMMARY | 2022-06-04 18:07 | XMS_ITS | Encounter Summary ---
:1940 Author Organization [facility] Address [address] [place] [address] Care Team Providers Name Role Phone Unavailable Primary Care Provider Unavailable Encounter Details Date Type Department Care Team Description 05/24/2022 Hospital Encounter Department of Antelmo Reese Laboratory Medicine R, MLavelle Unspecified (HCC) and Pathology, [address] [place] [address] in [place], [place] [address] [place] [address] [place], [place] (Work) [phone] Social History Tobacco Use Types Packs/Day Years [...] 05/23/2022 relatives? How often do you attend temple or baptist Never 05/23/2022 services? Do you belong to any clubs or organizations such as No 05/23/2022 temple groups, unions, fraternal or athletic groups, or [...] POCT Point of Care Routine Angina Pectoris Once for 1 Occurrences Testing-Docked Unspecified (HCC) starting 05/24/2022 Device until 2 documented as of this encounter Procedures Procedure Name Priority Date/Time Associated Diagnosis Comme nts LIPID PANEL, S Routine 05/24/2022 8:00 AM Angina Pectoris Resu lts for this SOLDERING MACHINE FEEDER Unspecified (HCC) procedure are in the results section. PROTHROMBIN TIME Routine 05/24/2022 8:00 AM Angina Pectoris Re sults for this (PT), P SOLDERING MACHINE FEEDER Unspecified (HCC) procedure are in the results section. CBC WITH Routine 05/24/2022 8:00 AM Angina Pectoris Result s for this DIFFERENTIAL, B SOLDERING MACHINE FEEDER Unspecified (HCC) procedu re are in the results section. TROPONIN T, 5TH GEN, Routine 05/24/2022 8:00 AM Angina Pectori s Results for this P SOLDERING MACHINE FEEDER Unspecified (HCC) procedure are in the results section. BASIC METABOLIC Routine 05/24/2022 8:00 AM Angina Pectoris Res ults for this PANEL, S/P SOLDERING MACHINE FEEDER Unspecified (HCC) procedure are in the results section. documented in this encounter Results Prothrombin Time (PT) (05/24/2022 8:00 AM SOLDERING MACHINE FEEDER) athologist Signature Prothrombin 11.4 9.4 - 12.5 05/24/2022 DTL Time, P sec 8:45 AM SOLDERING MACHINE FEEDER INR 1.0 0.9 - 1.1 05/24/2022 DTL 8:45 AM SOLDERING MACHINE FEEDER Comment: ----ADDITIONAL INFORMATION---- Standard intensity warfarin therapeutic range: 2.0 to 3.0 ?? High intensity warfarin therapeutic rang e: 2.5 to 3.5 Specimen Anatomical Collection Method Collection Time Receive d Time (Source) Location / / Volume Laterality Blood (Blood, 05/24/2022 8:00 AM 05/24/20 22 8:23 Venous) SOLDERING MACHINE FEEDER AM SOLDERING MACHINE FEEDER Antelmo Reese M.D. LAB BLOOD ADD-ON Performing Organization Address City/[facility] Code Phon e Number [facility] - [address] [place], [place] [address] [facility] [place] [address] Laboratories-[facility] 200 [facility] (ABNORMAL) Troponin T, 5th Generation (05/24/2022 8:00 AM SOLDERING MACHINE FEEDER) athologist Signature Troponin T, 5th 22 (H) <=15 ng/L 05/24/2022 DTL gen 8:57 AM SOLDERING MACHINE FEEDER Specimen Anatomical Collection Method Collection Time Receive d Time (Source) Location / / Volume Laterality Blood (Blood, 05/24/2022 8:00 AM 05/24/20 22 8:34 Venous) SOLDERING MACHINE FEEDER AM SOLDERING MACHINE FEEDER Antelmo Reese M.D. LAB BLOOD ADD-ON Performing Organization Address City/State/[facility] Code Phon e Number [facility] - [address] [place], [place] [address] [place] [address] [place] [address] Laboratories-[facility] 200 [facility] Lipid Panel (05/24/2022 8:00 AM SOLDERING MACHINE FEEDER) P athologist Signature Triglycerides 83 mg/dL 05/24/2022 DTL 8:54 AM SOLDERING MACHINE FEEDER Comment: ----REFERENCE VALUE---- Normal: <150 mg/dL Borderline High: 150-199 mg/dL High: 200-499 mg/dL Very High: > or =500 mg/dL Cholesterol, Total 126 mg/dL 05/24/2022 8:54 AM CS T DTL Comment: ----REFERENCE VALUE---- Desirable: < 200 mg/dL Borderline High: 200 - 239 mg/dL High: > or = 240 mg/dL Cholesterol, LDL, Calculated 48 mg/dL 05/24/2022 8:54 AM SOLDERING MACHINE FEEDER DTL Comment: ----REFERENCE VALUE---- Desirable: <100 mg/dL Above Desirable: 100-129 mg/dL Borderline High: 130-159 mg/dL High: 160-189 mg/dL Very High: >=190 mg/dL ----ADDITIONAL INFORMATION---- LDL cholesterol calculated using the Mendez/NIH equation. Cholesterol, HDL, S 62 >=40 mg/dL 05/24/2022 8:54 AM SOLDERING MACHINE FEEDER DTL Cholesterol, Non-HDL, Calculated 64 mg/dL 8:54 AM SOLDERING MACHINE FEEDER DTL Comment: ----REFERENCE VALUE---- Desirable: <130 mg/dL Above Desirable: 130-159 mg/dL Borderline High: 160-189 mg/dL High: 190-219 mg/dL Very High: > or =220 mg/dL Fasting (8 HR or more) y 05/24/2022 8:34 A M SOLDERING MACHINE FEEDER DTL Specimen Anatomical Collection Method Collection Time Receive d Time (Source) Location / / Volume Laterality Blood (Blood, 05/24/2022 8:00 AM 05/24/20 8:34 Venous) SOLDERING MACHINE FEEDER AM SOLDERING MACHINE FEEDER Antelmo Reese M.D. LAB BLOOD ADD-ON Performing Organization Address City/State/ZIP Code Phon e Number [facility] - [address] [place], [place] [address] [place] [address] [place] [address] Laboratories-[facility] [address] [facility] (ABNORMAL) Basic Metabolic Panel (05/24/2022 8:00 AM SOLDERING MACHINE FEEDER) Analysis Performed At Patho logist Time Signature Potassium, S 4.1 3.6 - 5.2 05/24/2022 DTL mmol/L 8:54 AM SOLDERING MACHINE FEEDER Sodium, S 136 135 - 145 05/24/2022 DTL mmol/L 8:54 AM SOLDERING MACHINE FEEDER Chloride, S 99 98 - 107 05/24/2022 DTL mmol/L 8:54 AM SOLDERING MACHINE FEEDER Bicarbonate, S 26 22 - 29 05/24/2022 DTL mmol/L 8:54 AM SOLDERING MACHINE FEEDER Anion Gap 11 7 - 15 05/24/2022 DTL 8:54 AM SOLDERING MACHINE FEEDER BUN (Blood Urea 26 (H) 8 - 24 05/24/2022 DTL Nitrogen), S mg/dL 8:54 AM SOLDERING MACHINE FEEDER Creatinine 1.50 (H) 0.74 - 05/24/2022 DTL 1.35 mg/dL 8:54 AM SOLDERING MACHINE FEEDER Estimated GFR 46 (L) >=60 05/24/2022 DTL (eGFR) mL/min/BSA 8:54 AM SOLDERING MACHINE FEEDER Comment: Estimated GFR calculated using the 2020 CKD_EPI creatinine equation. Calcium, Total, S 9.5 8.8 - 10.2 mg/dL 05/24/2022 8:54 AM SOLDERING MACHINE FEEDER DTL Glucose, S 97 70 - 140 mg/dL 05/24/2022 8:54 AM SOLDERING MACHINE FEEDER D TL Specimen Anatomical Collection Method Collection Time Receive d Time (Source) Location / / Volume Laterality Blood (Blood, 05/24/2022 8:00 AM 05/24/20 8:34 Venous) SOLDERING MACHINE FEEDER AM SOLDERING MACHINE FEEDER Antelmo Reese M.D. LAB BLOOD ADD-ON Performing Organization Address City/State/ZIP Code Phon e Number [facility] - [facility] [address] [place], [place] [address] [place] [address] [facility] [address] [facility] (ABNORMAL) CBC with Differential, Blood (05/24/2022 8:00 AM SOLDERING MACHINE FEEDER) Patholo gist Method Time Signature Hemoglobin 12.4 (L) 13.2 - 05/24/2022 DTL 16.6 g/dL 8:47 AM SOLDERING MACHINE FEEDER Hematocrit 37.8 (L) 38.3 - 05/24/2022 DTL 48.6 % 8:47 AM SOLDERING MACHINE FEEDER Erythrocytes 4.06 (L) 4.35 - 05/24/2022 DTL 5.65 8:47 AM SOLDERING MACHINE FEEDER x10(12)/L MCV 93.1 78.2 - 05/24/2022 DTL 97.9 fL 8:47 AM SOLDERING MACHINE FEEDER RBC Distrib Width 12.9 11.8 - 05/24/2022 DTL 14.5 % 8:47 AM SOLDERING MACHINE FEEDER Platelet Count 202 135 - 317 05/24/2022 DTL x10(9)/L 8:47 AM SOLDERING MACHINE FEEDER Leukocytes 8.2 3.4 - 9.6 05/24/2022 DTL x10(9)/L 8:47 AM SOLDERING MACHINE FEEDER Neutrophils 5.60 1.56 - 05/24/2022 DTL 6.45 8:47 AM SOLDERING MACHINE FEEDER x10(9)/L Lymphocytes 1.11 0.95 - 05/24/2022 DTL 3.07 8:47 AM SOLDERING MACHINE FEEDER x10(9)/L Monocytes 0.75 0.26 - 05/24/2022 DTL 0.81 8:47 AM SOLDERING MACHINE FEEDER x10(9)/L Eosinophils 0.70 (H) 0.03 - 05/24/2022 DTL 0.48 8:47 AM SOLDERING MACHINE FEEDER x10(9)/L Basophils 0.05 0.01 - 05/24/2022 DTL 0.08 8:47 AM SOLDERING MACHINE FEEDER x10(9)/L Specimen Anatomical Collection Method Collection Time Receive d Time (Source) Location / / Volume Laterality Blood (Blood, 05/24/2022 8:00 AM 05/24/20 22 8:24 Venous) SOLDERING MACHINE FEEDER AM SOLDERING MACHINE FEEDER Antelmo Reese M.D. LAB BLOOD ADD-ON Performing Organization Address City/State/ZIP Code Phon e Number [facility] - [address] [place], [place] [address] [facility] [address] Laboratories-[facility] [address] documented in this encounter Visit Diagnoses Diagnosis Angina Pectoris Unspecified (HCC) documented in this encounter
--- OUTSIDE RECORDS SUMMARY | 2022-06-04 18:08 | XMS_ITS | Encounter Summary ---
:1940 Author Organization [facility] Address [address] [place] [address] Care Team Providers Name Role Phone Unavailable Primary Care Provider Unavailable Reason for Visit Reason Comments Med Refill Encounter Details Date Type Department Care Team Description 02/10/2022 Refill Division of Nephrology and Antelmo White M.D. Med Refill Hypertension in [address] [address] [place] [address] [place] [address] [phone] Social History Tobacco Use Types Packs/Day Years [...] 05/23/2022 relatives? How often do you attend judaism or worship Never 05/23/2022 services? Do you belong to any clubs or organizations such as No 05/23/2022 judaism groups, unions, fraternal or athletic groups, or [...] place to sleep or slept in a nursing home (including now)? Education Answer Date Recorded [...]
--- OUTSIDE RECORDS SUMMARY | 2022-06-04 18:08 | XMS_ITS | Encounter Summary ---
:1940 Author Organization [facility] Address [address] [place] [address] Care Team Providers Name Role Phone Unavailable Primary Care Provider Unavailable Reason for Visit Reason Comments Med Refill Encounter Details Date Type Department Care Team Description 02/06/2022 Refill Division of Nephrology and Antelmo White M.D. Med Refill Hypertension in [address] [address] [place] [address] [place] [address] [phone] Social History Tobacco Use Types Packs/Day Years [...] 05/23/2022 relatives? How often do you attend latter day or sikhism Never 05/23/2022 services? Do you belong to any clubs or organizations such as No 05/23/2022 latter day groups, unions, fraternal or athletic groups, or [...] place to sleep or slept in a detention (including now)? Education Answer Date Recorded What is the highest level of school you have completed or 12 th grade 03/04/2019 the highest degree you have received? Sex Assigned at Date Recorded Male 04/08/2018 12:55 PM CDT documented as of this encounter Plan of Treatment Not on filedocumented as of this encounter Visit Diagnoses Diagnosis Coronary Artery Disease Without Angina P ectoris Benign Prostatic Hyperplasia Without Obs truction Hypertension Personal History Hypertension Essential Primary Insomnia documented in this encounter
--- OUTSIDE RECORDS SUMMARY | 2022-06-04 18:08 | XMS_ITS | Encounter Summary ---
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 Do you belong to [...] place to sleep or slept in a [place] [facility] [place] facility (including now)? Education Answer Date Recorded What [...] (three) times a day as needed. pain aspirin 325 mg tablet Take 1 tablet by 0 09/24/19 15 mouth daily. lanolin/mineral Administer 1 drop 0 04/06/2015 oil/petrolatum into affected eye(s) (ARTIFICIAL TEARS OPHT) as needed. As needed (both eyes). loratadine (CLARITIN) 10 Take 10 mg by mouth 0 mg tablet daily. nitroglycerin Place 1 tablet (0.4 25 tablet 11 12/24/2020 (NITROSTAT) 0.4 mg SL mg total) under the tabletIndications: tongue every 5 Coronary Artery Disease (five) minutes as Without Angina Pectoris needed for chest pain. Place 1 tab under the tongue at first sign of chest pain. If no relief in 5 min, call 911. Repeat dose every 5 min up to 2 additional doses if chest pain continues. POLYETHYLENE GLYCOL 3350 Take 1 g by mouth 0 10/24 ORAL daily. MiraLAX powder amLODIPine (NORVASC) 2.5 Take 1 tablet (2.5 90 tablet 3 07/202002/08/2022 mg tabletIndications: mg total) by mouth Hypertension Personal daily. History carvediloL (COREG) 12.5 TAKE ONE TABLET BY 180 tablet 0 07/12/202102/08/2022 mg tabletIndications: MOUTH TWICE DAILY Hypertension Personal WITH MEALS History finasteride (PROSCAR) 5 TAKE ONE TABLET BY 90 tablet 0 07/0 12/202102/08/2022 mg tabletIndications: MOUTH ONE TIME DAILY Benign Prostatic Hyperplasia Without Obstruction losartan-hydroCHLOROthia TAKE ONE TABLET BY 90 tablet 0 12/202102/08/2022 zide (HYZAAR) 100-25 mg MOUTH IN THE MORNING per tabletIndications: Hypertension Personal History rosuvastatin (CRESTOR) TAKE ONE TABLET BY 90 tablet 0 12/2902/08/2022 10 mg tabletIndications: MOUTH IN THE EVENING Coronary Artery Disease Without Angina Pectoris sertraline (ZOLOFT) 50 TAKE ONE TABLET BY 90 tablet 0 12/2902/08/2022 mg tabletIndications: MOUTH ONE TIME DAILY Hypertension Essential Primary tamsulosin (FLOMAX) 0.4 TAKE ONE CAPSULE BY 90 capsule 0 12/202102/08/2022 mg 24 hr MOUTH ONE TIME DAILY capsuleIndications: Benign Prostatic Hyperplasia Without Obstruction traMADoL (ULTRAM) 50 mg Take 1 tablet (50 mg 270 tablet 0 02/13/2022 tabletIndications: total) by mouth Chronic Pain/Nonacute every 6 (six) hours Pain as needed for pain Indications: Chronic Pain/Nonacute Pain. zolpidem (AMBIEN) 10 mg TAKE ONE TABLET BY 90 tablet 0 07/0 06/202102/08/2022 tabletIndications: MOUTH ONE TIME DAILY Insomnia AT BEDTIME documented as of this encounter Plan of Treatment Not on filedocumented as of this encounter Procedures Procedure Name Priority Date/Time Associated Comments Diagnosis DIPSTICK, U Routine 01/27/2022 11:57 Results for this AM CDT procedure are i n the results section. MICROSCOPIC AUTOMATED Routine 01/27/2022 11:57 Re sults for this AM CDT procedure are i n the results section. PH, U Routine 01/27/2022 11:57 Results for this AM CDT procedure are i n the results section. OSMOLALITY, U Routine 01/27/2022 11:57 Results fo r this AM CDT procedure are i n the results section. URINALYSIS WITH Routine 01/27/2022 11:57 Pain Hip Bilate ral Results for this MICROSCOPIC AM CDT Coronary Artery procedure ar e in Disease Without the results Angina Pectoris section. Hypertension Essential Primar y Other Chronic Pain documented in this encounter Results Dipstick, Urine (01/27/2022 11:57 AM CDT) [facility] [place] gist Method Time Signature Hemoglobin, Negative Negative 01/27/2022 DTL QL, U 12:54 PM CDT Leukocyte Negative Negative 01/27/2022 DTL Esterase, U 12:54 PM CDT Nitrite, U Negative Negative 01/27/2022 DTL 12:54 PM CDT Ketone, U Negative Negative 01/27/2022 DTL mg/dL 12:54 PM CDT Glucose, U Negative Negative 01/27/2022 DTL mg/dL 12:54 PM CDT Specimen Anatomical Collection Method Collection Time Receive d Time (Source) Location / / Volume Laterality Urine 01/27/2022 11:57 01/27/2022 AM CDT 12:09 PM CDT Antelmo Reese M.D. LAB URINE ORDERABLES Performing Organization Address City/[facility] Phon e Number [facility] - [address] [place] [address] [address] [facility] pH, Urine (01/27/2022 11:57 AM CDT) athologist Signature pH, U 5.9 4.5 - 8.0 01/27/2022 12:40 DTL PM CDT Specimen Anatomical Collection Method Collection Time Receive d Time (Source) Location / / Volume Laterality Urine 01/27/2022 11:57 01/27/2022 AM CDT 12:09 PM CDT Antelmo Reese M.D. LAB URINE ORDERABLES Performing Organization Address City/[facility] Phon e Number [facility] - [address] Osmolality, Urine (01/27/2022 11:57 AM CDT) athologist Signature Osmolality, U 355 150 - 1150 01/27/2022 DTL mOsm/kg 12:40 PM CDT Specimen Anatomical Collection Method Collection Time Receive d Time (Source) Location / / Volume Laterality Urine 01/27/2022 11:57 01/27/2022 AM CDT 12:09 PM CDT Antelmo Reese M.D. LAB URINE ORDERABLES Performing Organization Address [facility] Code Phon e Number [facility] - 200 [place], [place] [address] [place] [address] Laboratories-[facility] 200 [facility] Microscopic Automated (01/27/2022 11:57 AM CDT) P athologist Signature Microscopy Normal 01/27/2022 DTL 12:54 PM CDT RBC <3 <3 /hpf 01/27/2022 DTL 12:54 PM CDT WBC 1-3 /hpf 01/27/2022 DTL 12:54 PM CDT Comment: ----REFERENCE VALUE---- 1-3 ??(Males) 1-10 (Females) Casts, Hyaline 1-3 /lpf 01/27/2022 12:54 PM CDT D TL Specimen Anatomical Collection Method Collection Time Receive d Time (Source) Location / / Volume Laterality Urine 01/27/2022 11:57 01/27/2022 AM CDT 12:09 PM CDT Antelmo Reese M.D. LAB URINE ORDERABLES Performing Organization Address City/[facility] Code Phon e Number [facility] - 200 [place], [place] [address] [place] [address] [facility] 200 [facility] Urinalysis with Microscopic: Urine, Midstream (01/27/2022 11:57 AM CDT) Patholo gist Method Time Signature Source Urine, Urine, 01/27/2022 DTL Midstream 12:09 PM CDT Color, U Yellow 01/27/2022 DTL 12:09 PM CDT Clarity, U Clear 01/27/2022 DTL 12:09 PM CDT Protein, U 9 <26 mg/dL 01/27/2022 DTL 1:02 PM CDT Protein/Osmol 0.25 <0.42 01/27/2022 DTL ality ratio 1:02 PM CDT Predicted 24 255 mg/24 h 01/27/2022 DTL Hr Protein 1:02 PM CDT Predicted 81-802 mg/24 h 01/27/2022 DTL Range 1:02 PM CDT Specimen Anatomical Collection Method Collection Time Receive d Time (Source) Location / / Volume Laterality Urine (Urine, 01/27/2022 11:57 01/27/2022 Midstream) AM CDT 12:09 PM CDT Antelmo Reese M.D. 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
--- OUTSIDE RECORDS SUMMARY | 2022-06-04 18:08 | XMS_ITS | Encounter Summary ---
:1940 Author Organization [facility] Address [address] [place] [address] Care Team Providers Name Role Phone Unavailable Primary Care Provider Unavailable Reason for Referral Outpatient (Routine) - Closed Specialty Diagnoses / Procedures Referred By Contact Refer red To Contact NephAntelmo Ahumada [place] [facility] Hypert[facility] [place] [address] [place] [address] Referral ID Status Reason Start Date Expiration Date Visits Requ ested Visits Authorized [id number] Closed 11/29/2021 11/29/2022 1 1 Scheduling Instructions Schedule before provider visit Outpatient (Routine) - Closed Specialty Diagnoses / Procedures Referred By Contact Refer red To Contact NephAntelmo Ahumada [place] [facility] Hypertension [place] [address] [place] [address] Referral ID Status Reason Start Date Expiration Date Visits Requ ested Visits Authorized [id number] Closed 11/29/2021 11/29/2022 1 1 Scheduling Instructions Yearly chronic opioid visit, schedule af ter nurse visit Encounter Details Date Type Department Care Team Description 11/29/2021 Orders Only Division of Nephrology Ange Leonard, Gl uteal Tendinitis and Hypertension in R.N. Right Hip (Primary Dx) [place], [place] 200 [facility] [address] [place] [phone] Social History Tobacco Use Types Packs/Day Years [...] 05/23/2022 relatives? How often do you attend gnosticist or hindu Never 05/23/2022 services? Do you belong to any clubs or organizations such as No 05/23/2022 gnosticist groups, unions, fraternal or athletic groups, or [...] place to sleep or slept in a assisted (including now)? Education Answer Date Recorded What is the highest level of school you have completed or 12 th grade 03/04/2019 the highest degree you have received? Sex Assigned at Date Recorded Male 04/08/2018 12:55 PM CDT documented as of this encounter Plan of Treatment Scheduled Referrals Name Type Priority Associated Order Schedule Diagnoses Nephrology and Outpatient Referral Routine Expect ed: Hypertension office 01/31/20 visit (clinic) (Approximate) , Expires: 03/01/2023 Nephrology nurse Outpatient Referral Routine Expe cted: visit (clinic) 01/30/2022, Expires: 03/01/2023 documented as of this encounter Results (ABNORMAL) Controlled Substance Monitoring Panel, Urine (01/27/2022 7:36 AM CDT) [facility] Method Time Signature List patient's Not provided 01/27/2022 [facility] current 9:50 AM CDT medications Comment: ----ADDITIONAL INFORMATION---- Accuracy and completeness of declared me dications on reports solely dependent on information submitted by cl ient. Creatinine, Random, U 95.4 mg/dL 01/27/2022 10:56 A M CDT [facility] Specific [facility] 1.018 01/27/2022 10:56 AM CDT [facility] pH 6.1 01/27/2022 10:56 AM CDT [facility] Oxidants Negative Cutoff: 200 mg/L 01/27/2022 10:56 AM CDT [facility] Comment Normal 01/27/2022 10:56 AM CDT [facility] Barbiturates Negative Cutoff: 200 ng/mL 01/27/2022 10:56 AM CDT [facility] Cocaine Negative Cutoff: 150 ng/mL 01/27/2022 10:56 AM CD T [facility] Comment: This cocaine immunoassay targets benzoyl ecgonine the primary metabolite of cocaine. Tetrahydrocannabinol Negative Cutoff: 50 ng/mL 01/27/2022 1 0:56 AM CDT [facility] Comment: This immunoassay targets delta-9 tetrahy drocannabinol carboxylic acid (THC-COOH), a metabolite of delta-9 tetr ahydrocannabinol the main psychoactive ingredient of marijuana. ----ADDITIONAL INFORMATION---- This report is intended for use in clini sindy monitoring or management of patients. ??It is not intended for use i n employment-related testing. Codeine Not Detected Cutoff: 25 ng/mL 01/28/2022 10:54 PM CDT [facility] Comment: Tylenol 3 Hmobdtg-6-qkgw-glucuronide Not Detected Cutoff: 100 ng/mL 01/28/2022 10:54 PM [facility] CDT Comment: Metabolite of codeine Morphine Not Detected Cutoff: 25 ng/mL 01/28/2022 10:54 PM CDT [facility] Comment: Patricia De La Cruz, MS Contin; Also a minor metabolite (10%) of codeine and can be seen in low concentrations (<2,000 ng /mL) with poppy seed ingestion. Pdgfopgz-6-bmvy-glucuronide Not Detected Cutoff: 100 022 10:54 PM [facility] ng/mL CDT Comment: Metabolite of morphine 6-monoacetylmorphine Not Detected Cutoff: 25 ng/mL 022 10:54 PM CDT [facility] Comment: Metabolite of heroin Hydrocodone Not Detected Cutoff: 25 ng/mL 01/28/2022 10:54 P M CDT [facility] Comment: Lortab, [place], Vicodin; Also a very david r metabolite of codeine and impurity (<1%) of oxycodone. Norhydrocodone Not Detected Cutoff: 25 ng/mL 01/28/2022 10:5 4 PM CDT [facility] Comment: Metabolite of hydrocodone Dihydrocodeine Not Detected Cutoff: 25 ng/mL 01/28/2022 10:5 4 PM CDT [facility] Comment: Metabolite of hydrocodone Hydromorphone Not Detected Cutoff: 25 ng/mL 01/28/2022 10:54 PM CDT [facility] Comment: Dilaudid, Exalgo; Also a metabolite of h ydrocodone and a minor (<5%) metabolite of morphine. Svwosidsjeruu-4-rnog-glucuronide Not Detected Cutoff: 100 01/28/2022 10:54 [facility] ng/mL PM CDT Comment: Metabolite of hydromorphone Oxycodone Not Detected Cutoff: 25 ng/mL 01/28/2022 10:54 PM CDT [facility] Comment: Endocet, Percocet, Oxycontin Noroxycodone Not Detected Cutoff: 25 ng/mL 01/28/2022 10:54 PM CDT [facility] Comment: Metabolite of oxycodone Oxymorphone Not Detected Cutoff: 25 ng/mL 01/28/2022 10:54 P M CDT [facility] Comment: Numorphan, Opana; Also a metabo lite of oxycodone. Vmdoeqmktzv-7-qfqa-glucuronide Not Detected Cutoff: 100 0811/2021 10:54 [facility] ng/mL PM CDT Comment: Metabolite of oxymorphone and/o r naloxone (nornaloxone) Noroxymorphone Not Detected Cutoff: 25 ng/mL 01/28/2022 10:5 4 PM CDT [facility] Comment: Metabolite of oxymorphone and/o r naloxone (nornaloxone) Fentanyl Not Detected Cutoff: 2 ng/mL 01/28/2022 10:54 PM C DT [facility] Comment: Actiq, Duragesic, Fentora Norfentanyl Not Detected Cutoff: 2 ng/mL 01/28/2022 10:54 PM CDT [facility] Comment: Metabolite of fentanyl Meperidine Not Detected Cutoff: 25 ng/mL 01/28/2022 10:54 PM CDT [facility] Comment: Demerol Normeperidine Not Detected Cutoff: 25 ng/mL 01/28/2022 10:54 PM CDT [facility] Comment: Metabolite of meperidine Naloxone Not Detected Cutoff: 25 ng/mL 01/28/2022 10:54 PM CDT [facility] Comment: Narcan Ndhlbhyz-4-dmzv-glucuronide Not Detected Cutoff: 100 022 10:54 PM [facility] ng/mL CDT Comment: Metabolite of naloxone Methadone Not Detected Cutoff: 25 ng/mL 01/28/2022 10:54 PM CDT [facility] Comment: Dolophine EDDP Not Detected Cutoff: 25 ng/mL 01/28/2022 10:54 PM CDT [facility] Comment: Metabolite of methadone Propoxyphene Not Detected Cutoff: 25 ng/mL 01/28/2022 10:54 PM CDT [facility] Comment: Darvon, Darvocet Norpropoxyphene Not Detected Cutoff: 25 ng/mL 01/28/2022 10: 54 PM CDT [facility] Comment: Metabolite of propoxyphene Tramadol Present (A) Cutoff: 25 ng/mL 01/28/2022 10:54 PM C DT [facility] Comment: Tradol, Ultram, Ultracet O-desmethyltramadol Present (A) Cutoff: 25 ng/mL 01/28/2022 10:54 PM CDT [facility] Comment: Metabolite of tramadol Tapentadol Not Detected Cutoff: 25 ng/mL 01/28/2022 10:54 PM CDT [facility] Comment: Nucynta N-desmethyltapentadol Not Detected Cutoff: 50 ng/mL 2021 10:54 PM CDT [facility] Comment: Metabolite of tapentadol Wdghuwdbzl-jfwm-lwisdwfrqft Not Detected Cutoff: 100 022 10:54 PM [facility] ng/mL CDT Comment: Metabolite of tapentadol Buprenorphine Not Detected Cutoff: 5 ng/mL 01/28/2022 10:54 PM CDT [facility] Comment: Buprenex, Suboxone Norbuprenorphine Not Detected Cutoff: 5 ng/mL 01/28/2022 10: 54 PM CDT [facility] Comment: Metabolite of buprenorphine Norbuprenorphine Not Detected Cutoff: 20 ng/mL 01/28/2022 10 :54 PM [facility] glucuronide CDT Comment: Metabolite of buprenorphine Opioid Interpretation Test detected the presence of tramadol and its metabolite 01/28/2022 10:54 PM [facility] (O-desmethyltramadol). Suspect use of tramadol within the past three days. CDT Comment: ----ADDITIONAL INFORMATION---- This test was developed and its performa nce characteristics determined by [facility] in a manner consistent with CLIA requirements. This test has not been cleared or approved by the [place] Jay[place] d and Drug Administration. Alprazolam Not Detected Cutoff: 10 ng/mL 01/29/2022 8:31 PM CDT [facility] Comment: Xanax Alpha-Hydroxyalprazolam Not Detected Cutoff: 10 ng/mL 12/2021 8:31 PM CDT [facility] Comment: Metabolite of Alprazolam Alpha-Hydroxyalprazolam Not Detected Cutoff: 50 01/29/2022 8 :31 [facility] Glucuronide ng/mL PM CDT Comment: Metabolite of Alprazolam Chlordiazepoxide Not Detected Cutoff: 10 ng/mL 01/29/2022 8: 31 PM CDT [facility] Comment: Librium Clobazam Not Detected Cutoff: 10 ng/mL 01/29/2022 8:31 PM C DT [facility] Comment: Frisium, Onfi N-Desmethylclobazam Not Detected Cutoff: 200 ng/mL 8:31 PM CDT [facility] Comment: Metabolite of Clobazam Clonazepam Not Detected Cutoff: 10 ng/mL 01/29/2022 8:31 PM CDT [facility] Comment: Klonopin, Rivotril 7-aminoclonazepam Not Detected Cutoff: 10 ng/mL 01/29/2022 8 :31 PM CDT [facility] Comment: Metabolite of Clonazepam Diazepam Not Detected Cutoff: 10 ng/mL 01/29/2022 8:31 PM C DT [facility] Comment: Valium Nordiazepam Not Detected Cutoff: 10 ng/mL 01/29/2022 8:31 PM CDT [facility] Comment: Metabolite of Chlordiazepoxide, Diazepam, or Prazepam. Flunitrazepam Not Detected Cutoff: 10 ng/mL 01/29/2022 8:31 PM CDT [facility] Comment: Rohypnol 7-aminoflunitrazepam Not Detected Cutoff: 10 ng/mL 8:31 PM CDT [facility] Comment: Metabolite of Flunitrazepam Flurazepam Not Detected Cutoff: 10 ng/mL 01/29/2022 8:31 PM CDT [facility] Comment: Dalmane 2-Hydroxy Ethyl Not Detected Cutoff: 10 ng/mL 01/29/2022 8:3 1 PM CDT [facility] Flurazepam Comment: Metabolite of Flurazepam Lorazepam Not Detected Cutoff: 10 ng/mL 01/29/2022 8:31 PM C DT [facility] Comment: Ativan Lorazepam Glucuronide Not Detected Cutoff: 50 ng/mL 2021 8:31 PM CDT [facility] Comment: Metabolite of Lorazepam Midazolam Not Detected Cutoff: 10 ng/mL 01/29/2022 8:31 PM C DT [facility] Comment: Versed Alpha-Hydroxy Midazolam Not Detected Cutoff: 10 ng/mL 12/2021 8:31 PM CDT [facility] Comment: Metabolite of Midazolam Oxazepam Not Detected Cutoff: 10 ng/mL 01/29/2022 8:31 PM C DT [facility] Comment: Serax; Also a metabolite of Chl ordiazepoxide, Diazepam, or Temazepam. Oxazepam Glucuronide Not Detected Cutoff: 50 ng/mL 8:31 PM CDT [facility] Comment: Metabolite of Oxazepam Prazepam Not Detected Cutoff: 10 ng/mL 01/29/2022 8:31 PM C DT [facility] Comment: Centrax Temazepam Not Detected Cutoff: 10 ng/mL 01/29/2022 8:31 PM C DT [facility] Comment: Restoril; Also a metabolite of Diazepam. Temazepam Glucuronide Not Detected Cutoff: 50 ng/mL 2021 8:31 PM CDT [facility] Comment: Metabolite of Temazepam Triazolam Not Detected Cutoff: 10 ng/mL 01/29/2022 8:31 PM C DT [facility] Comment: Halcion Alpha-Hydroxy Triazolam Not Detected Cutoff: 10 ng/mL 12/2021 8:31 PM CDT [facility] Comment: Metabolite of Triazolam Zolpidem Present (A) Cutoff: 10 ng/mL 01/29/2022 8:31 PM CD T [facility] Comment: Ambien Zolpidem Rscfle-6-Vwlaiusrpv Present (A) Cutoff: 10 ng/mL 01/29/2022 8:31 PM [facility] acid CDT Comment: Metabolite of Zolpidem Benzodiazepine Test detected the presence o f zolpidem and its metabolite (zolpidem 01/29/2022 8:31 PM [facility] Interpretation nceuab-7-itlqeszmjn acid). S uspect use of zolpidem within the past four days. CDT Comment: ----ADDITIONAL INFORMATION---- This test was developed and its performa nce characteristics determined by [facility] in a manner consistent with CLIA requirements. This test has not been cleared or approved by the U.[place] Jay[place] d and Drug Administration. Methamphetamine Not Detected Cutoff: 100 ng/mL 01/28/2022 11 :54 PM CDT [facility] Comment: Desoxyn Amphetamine Not Detected Cutoff: 100 ng/mL 01/28/2022 11:54 PM CDT [facility] Comment: Dyanavel XR, Adzenys ER, Adderall, Vyvan se; Also a metabolite of methamphetamine 3,4-methylenedioxymethamphetamine Not Detected Cutoff: 100 0 01/28/2022 [facility] (MDMA) ng/mL 11:54 PM CDT 3,0-eumumrhlcposxd-F-ethylamphetamine Not Detected Cutoff: 100 01/28/2022 [facility] (MDEA) ng/mL 11:54 PM CDT 3,4-methylenedioxyamphetamine (MDA) Not Detected Cutoff: 100 01/28/2022 [facility] ng/mL 11:54 PM CDT Comment: Also a metabolite of MDMA and/o r MDEA Ephedrine Not Detected Cutoff: 100 ng/mL 01/28/2022 11:54 PM CDT [facility] Pseudoephedrine Not Detected Cutoff: 100 ng/mL 01/28/2022 11 :54 PM CDT [facility] Comment: Sudafed Phentermine Not Detected Cutoff: 100 ng/mL 01/28/2022 11:54 PM CDT [facility] Comment: Adipex-P, Lomaira, Qsymia Phencyclidine (PCP) Not Detected Cutoff: 20 ng/mL 01/28/2022 11:54 PM CDT [facility] Methylphenidate Not Detected Cutoff: 20 ng/mL 01/28/2022 11: 54 PM CDT [facility] Comment: Ritalin, Concerta Ritalinic acid Not Detected Cutoff: 100 ng/mL 01/28/2022 11: 54 PM CDT [facility] Comment: Metabolite of methylphenidate Stimulant Interpretation No stimulants were detected. The absence of expected drug(s) and/or drug 01/28/2022 11:54 PM [facility] metabolite(s) may indicate non-compliance, altered pharmacok inetics, CDT inappropriate timing of specimen collection relative t o drug administration, diluted/adulterated urine, or limitations of testing. Comment: ----ADDITIONAL INFORMATION---- This test was developed and its performa nce characteristics determined by [facility] in a manner consistent with CLIA requirements. This test has not been cleared or approved by the U.[place]. Jay[place] d and Drug Administration. Specimen Anatomical Collection Method Collection Time Receive d Time (Source) Location / / Volume Laterality Urine (Urine, 01/27/2022 7:36 AM 01/28/20 9:50 Clean Catch) CDT AM CDT Narrative This result has an attachment that is no t available. Antelmo Reese M.D. LAB URINE ORDERABLES Performing Organization Address City/State/ZIP Code Phon e Number [facility] [address] [place], [place] [address] [facility] [place] [address] Laboratory Medicine and Pathology [address] [place] documented in this encounter Visit Diagnoses Diagnosis Gluteal Tendinitis Right Hip - Primary documented in this encounter Additional Health Concerns Assessment Noted Time PHQ-9 Depression Total Score: 1 02/08/2021 1:00 PM CDT documented as of this encounter
--- OUTSIDE RECORDS SUMMARY | 2022-06-04 18:08 | XMS_ITS | Encounter Summary ---
:1940 Author Organization [facility] Address [address] [place] [address] Care Team Providers Name Role Phone Unavailable Primary Care Provider Unavailable Encounter Details Date Type Department Care Team Description 03/01/2022 Orders Only Division of Nephrology and Ghulam Reese, [facility] [place] [address] [facility] [address] [place] [phone] (Wo rk) Social History Tobacco Use Types [...] 05/23/2022 relatives? How often do you attend mormon or jain Never 05/23/2022 services? Do you belong to any clubs or organizations such as No 05/23/2022 mormon groups, unions, fraternal or athletic groups, or [...]
--- OUTSIDE RECORDS SUMMARY | 2022-06-04 18:08 | XMS_ITS | Encounter Summary ---
:1940 Author Organization [facility] Address [address] [place] [address] Care Team Providers Name Role Phone Unavailable Primary Care Provider Unavailable Reason for Visit Outpatient (Routine) - Closed Specialty Diagnoses / Procedures Referred By Contact Refer red To Contact Diagnoses Gluteal Tendinitis Right Hip Sherrell Mosqueda M.D. [facility] Procedures ORS US-Guided aspiration/injection [address] [place] [address] Referral ID Status Reason Start Date Expiration Date Visits Requ ested Visits Authorized [id number] Closed 02/02/2022 02/02/2023 1 1 Encounter Details Date Type Department Care Team Description 03/02/2022 Procedure visit Department of Nestor Mckeon, Gluteal Tendinitis Orthopedic Surgery in M.DChristian Right Hip [place], [place] [address] [facility] [address] [place] [phone] Social History Tobacco Use Types Packs/Day Years Used Date Smoking Tobacco: Former Cigarettes 0 Quit : 2004 Smokeless Tobacco: Never Alcohol Use Standard Drinks/Week Comments No 0 (1 standard drink = 0.6 oz pure alcoho l) none since 2005 Alcohol Habits Answer Date Recorded How often [...] How often do you attend rastafarian or holiness Never 05/23/2022 services? Do you belong to [...] PM CDT documented as of this encounter Procedure Notes Nestor Mckeon M.D. - 03/02/2022 8:00 AM CDTAssociated Order(s): ORS US-Guided aspiration/injection: R greater troch bursa Pre-Procedure Diagnose(s): Gluteal Tendinitis Right Hip Post-Procedure Diagnose(s): Gluteal Tendinitis Right Hip Referring provider (questions about ongoing care or repeat injections should be directed here): Sherrell Mosqueda M.D. Hip site - R greater troch bursa : injection only Date/Time: 03/02/2022 8:22 AM Performed by: Nestor Mckeon M.D. Authorized by: Sherrell Mosqueda M.D. PROCEDURE DETAILS Procedure Location hip Hip site: R greater troch bursa Patient position: side-lying Procedure performed: injection only Needle gauge: 25 G, length: 2.5 in Ultrasound image guidance used to localize target, identify at risk structures, and dynamically usedto direct therapy to the target. Image(s) acquired and saved. Pre-procedure image guidance used to localize target and identify at risk structures, and plan approach Probe: linear mid-frequency Procedural Medication The following medications were administered at the target site(s) Local anesthetic: 3 mL bupivacaine PF 0.25 % (2.5 mg/mL) Corticosteroid: 40 mg methylPREDNISolone acetate 40 mg/mL CONSENT Consent obtained: written UNIVERSAL PROTOCOL All relevant documentation and testing were reviewed and available. All required blood products, implants, devices and or special equipment were made available as applicable. Pre-procedure verificationwas conducted and the correct site was marked if required. A fire risk assessment was done as applicable. The procedural time-out to verify correct patient, correct side/site, and procedure was conducted prior to performing the procedure and confirmed in a procedural pause. PRE-PROCEDURE DETAILS Procedure purpose: therapeutic Appropriate hand hygiene, gown, cap, mask, protective eyewear, sterile gloves, skin preparation, sterile drape, and strict aseptic technique were utilized as applicable for the procedure. Site preparation: chlorhexidine POST-PROCEDURE DETAILS Procedure completed successfully: yes Complications: no apparent complications Post-procedure instructions: avoid strenuous activity for 2 days Discharge instructions: ice area as needed for comfort Comments Consent obtained (written and verbal): The benefits, alternatives, and risks (including but not limited to bleeding, bruising, hematoma, reaction to medication, allergic reaction, infection, transient increase in pain, possible continued pain) were discussed with the patient and/or decision maker, as well as the roles of healthcare team members performing significant interventional tasks. Injection hazardous waste material technician/nurse was present for assistance during the procedure. Additional instructions: Avoid submersion of procedure site for 24 hours. Any medication remaining in a vial was discarded. Medication wasted detail (if any): documented in this encounter Plan of Treatment Not on filedocumented as of this encounter Procedures Procedure Name Priority Date/Time Associated Diagnosis Comme nts NJ ARTHCS ASP/INJ Routine 03/02/2022 8:22 AM Gluteal Tendiniti s Results for this DARNELL Alvarez US CDT Right Hip procedure are i n the results section. documented in this encounter Results [place] ARTHCS ASP/INJ DAYANAR DAVID W US (03/02/2022 8:22 AM CDT) Specimen (Source) Anatomical Location Collection Method / Collectio n Time Received Time / Laterality Volume Narrative MMODAL - 03/02/2022 8:22 AM CDT Nestor Mckeon M.D. ? 03/02/2022 ??8:27 AM Hip site - R greater troch bursa : injec tion only Date/Time: 03/02/2022 8:22 AM Performed by: Nestor Mckeon M.D. Authorized by: Sherrell Mosqueda M.D. PROCEDURE DETAILS Procedure Location hip Hip site: R greater troch bursa Patient position: side-lying Procedure performed: injection only Needle gauge: 25 G, length: 2.5 in Ultrasound image guidance used to locali ze target, identify at risk structures, and dynamically used to dire ct therapy to the target. Image(s) acquired and saved. Pre-procedure image guidance used to loc tee target and identify at risk structures, and plan approach Probe: linear mid-frequency Procedural Medication The following medications were administe red at the target site(s) Local anesthetic: 3 mL bupivacaine PF 0. 25 % (2.5 mg/mL) Corticosteroid: 40 mg methylPREDNISolone acetate 40 mg/mL CONSENT Consent obtained: written UNIVERSAL PROTOCOL All relevant documentation and testing w ere reviewed and available. All required blood products, implants, devic es and or special equipment were made available as applicable. Pre-proced ure verification was conducted and the correct site was marked if required. A fire risk assessment was done as applicable. The procedural time-out t o verify correct patient, correct side/site, and procedure was conducted p rior to performing the procedure and confirmed in a procedural pause. PRE-PROCEDURE DETAILS Procedure purpose: therapeutic Appropriate hand hygiene, gown, cap, mas k, protective eyewear, sterile gloves, skin preparation, sterile drape, and strict aseptic technique were utilized as applicable for the procedure . Site preparation: chlorhexidine POST-PROCEDURE DETAILS Procedure completed successfully: yes Complications: no apparent complications ?? Post-procedure instructions: avoid stren uous activity for 2 days Discharge instructions: ice area as need ed for comfort Comments Consent obtained (written and verbal): T he benefits, alternatives, and risks (including but not limited to blee ding, bruising, hematoma, reaction to medication, allergic reaction, infect ion, transient increase in pain, possible continued pain) were discussed with the patient and/or decision maker, as well as the roles of [facility] team members performing significant interventional tasks. Injection hazardous waste material technician/nurse was present f or assistance during the procedure. Additional instructions: Avoid submersio n of procedure site for 24 hours. Any medication remaining in a vial was d iscarded. Medication wasted detail (if any): Sherrell Mosqueda M.D. PROCEDURE/MINOR SURGICAL ORD ERABLES Performing Organization Address City/State/ZIP Code Phon e Number MMODAL MMODAL NA documented in this encounter Visit Diagnoses Diagnosis Gluteal Tendinitis Right Hip documented in this encounter Administered Medications Inactive Administered Medications - up to 3 most recent administrations Medication Order MAR Action Action Date Dose Rate Site bupivacaine PF 0.25 % (2.5 mg/mL) Given 03/02/2022 8:22 AM CDT 3 mL injection 3 mL (MARCAINE) 3 mL, injection, One-Time Injection, Starting on Taniya 03/02/22 at 0822, For 1 dose methylPREDNISolone acetate injection 40 mg Given 03/02/2022 8:22 AM CDT 40 mg (DEPO-Medrol) 40 mg, intra-articular, One-Time Injection, Starting on Taniya 03/02/22 at 0822, For 1 dose documented in this encounter
--- OUTSIDE RECORDS SUMMARY | 2022-06-04 18:08 | XMS_ITS | Encounter Summary ---
:1940 Author Organization [facility] Address [address] [place] [address] Care Team Providers Name Role Phone Unavailable Primary Care Provider Unavailable Reason for Visit Reason Comments Med Refill Encounter Details Date Type Department Care Team Description 12/19/2021 Refill Division of Nephrology and Antelmo White M.D. Med Refill Hypertension in [address] [address] [place] [address] [place] [address] [phone] Social History Tobacco Use Types Packs/Day Years [...] 05/23/2022 relatives? How often do you attend yazidism or orthodoxy Never 05/23/2022 services? Do you belong to any clubs or organizations such as No 05/23/2022 yazidism groups, unions, fraternal or athletic groups, or [...] as of this encounter Visit Diagnoses Diagnosis Insomnia documented in this encounter Additional Health Concerns Assessment Noted Time PHQ-9 Depression Total Score: 1 02/08/2021 1:00 PM CDT documented as of this encounter
--- OUTSIDE RECORDS SUMMARY | 2022-06-04 18:08 | XMS_ITS | Encounter Summary ---
:1940 Author Organization [facility] Address [address] [place] [address] Care Team Providers Name Role Phone Unavailable Primary Care Provider Unavailable Encounter Details Date Type Department Care Team Description 01/27/2022 Hospital Encounter Department of Antelmo Reese Laboratory Medicine [facility] Right Hip and Pathology, [address] [place] [address] in [place], [place] [address] [place] [address] [place], [place] (Work) [phone] Social History Tobacco Use Types Packs/Day Years [...] 05/23/2022 relatives? How often do you attend zoroastrianism or mandaeism Never 05/23/2022 services? Do you belong to any clubs or organizations such as No 05/23/2022 zoroastrianism groups, unions, fraternal or athletic groups, or [...] 3350 Take 1 g by mouth 0 2 11/2016 ORAL daily. MiraLAX powder amLODIPine (NORVASC) 2.5 [...] Procedure Name Priority Date/Time Associated Comments Diagnosis CONTROLLED SUBSTANCE Routine 01/27/2022 7:36 AM Gluteal Tendin itis Results for this MONITORING, U CDT Right Hip procedure are in the results section. documented in this encounter Results (ABNORMAL) Controlled Substance Monitoring Panel, Urine (01/27/2022 7:36 AM CDT) [facility] Method Time Signature List patient's Not provided 01/27/2022 [facility] current 9:50 AM CDT medications Comment: ----ADDITIONAL INFORMATION---- Accuracy and completeness of declared me dications on reports solely dependent on information submitted by cl ient. Creatinine, Random, U 95.4 mg/dL 01/27/2022 10:56 A M CDT [facility] Specific [place] 1.018 01/27/2022 10:56 AM CDT [facility] pH 6.1 01/27/2022 10:56 AM CDT [facility] Oxidants Negative Cutoff: 200 mg/L 01/27/2022 10:56 AM CDT [facility] Comment Normal 01/27/2022 10:56 AM CDT [facility] Barbiturates Negative Cutoff: 200 ng/mL 01/27/2022 10:56 AM CDT [facility] Cocaine Negative Cutoff: 150 ng/mL 01/27/2022 10:56 AM CD T [facility] Comment: This cocaine immunoassay targets benzoyl ecgonine the primary metabolite of cocaine. Tetrahydrocannabinol Negative Cutoff: 50 ng/mL 01/27/2022 1 0:56 AM CDT [facility] Comment: This immunoassay targets delta-9 tetrahy drocannabinol carboxylic acid (THC-COOH), a metabolite of delta-9 tetr ahydrocannabinol the main psychoactive ingredient of marijuana. ----ADDITIONAL INFORMATION---- This report is intended for use in clini sindy monitoring or management of patients. ??It is not intended for use i n employment-related testing. Codeine Not Detected Cutoff: 25 ng/mL 01/28/2022 10:54 PM CDT [facility] Comment: Tylenol 3 Kbynnuq-7-xdcw-glucuronide Not Detected Cutoff: 100 ng/mL 01/28/2022 10:54 PM [facility] CDT Comment: Metabolite of codeine Morphine Not Detected Cutoff: 25 ng/mL 01/28/2022 10:54 PM CDT [facility] Comment: Patricia De La Cruz, MS Contin; Also a minor metabolite (10%) of codeine and can be seen in low concentrations (<2,000 ng /mL) with poppy seed ingestion. Rvfsiaub-7-hgce-glucuronide Not Detected Cutoff: 100 022 10:54 PM [facility] ng/mL CDT Comment: Metabolite of morphine 6-monoacetylmorphine Not Detected Cutoff: 25 ng/mL 022 10:54 PM CDT [facility] Comment: Metabolite of heroin Hydrocodone Not Detected Cutoff: 25 ng/mL 01/28/2022 10:54 P M CDT [facility] Comment: Lortab, [place], Vicodin; Also a very david r metabolite [...] and a minor (<5%) metabolite of morphine. Fgbsgouzmmvmj-8-hkwm-glucuronide Not Detected Cutoff: 100 01/28/2022 10:54 [facility] [...] Opana; Also a metabo lite of oxycodone. Ozrapednoga-3-tkan-glucuronide Not Detected Cutoff: 100 0811/2021 10:54 [facility] [...] 01/28/2022 10:54 PM CDT [facility] Comment: Narcan Phstnzus-0-sxlw-glucuronide Not Detected Cutoff: 100 022 10:54 PM [...] PM CDT [facility] Comment: Metabolite of tapentadol Rfzlcwhuwb-tvit-vsocfojslro Not Detected Cutoff: 100 022 10:54 PM [...] and its performa nce characteristics determined by [facility] in a manner consistent with CLIA requirements. [...] PM CD T [facility] Comment: Ambien Zolpidem Htqxtd-7-Gjytqqlhry Present (A) Cutoff: 10 ng/mL 01/29/2022 8:31 PM [facility] acid CDT Comment: Metabolite of Zolpidem Benzodiazepine Test detected the presence o f zolpidem and its metabolite (zolpidem 01/29/2022 8:31 PM [facility] Interpretation uuzuwk-5-yqotalautm acid). S uspect use of zolpidem within the past four days. CDT Comment: ----ADDITIONAL INFORMATION---- This test was developed and its performa nce characteristics determined by [facility] in a manner consistent with CLIA requirements. [...] 01/28/2022 [facility] (MDMA) ng/mL 11:54 PM CDT 3,9-qzhppypjerpeww-U-ethylamphetamine Not Detected Cutoff: 100 01/28/2022 [facility] (MDEA) [...] and its performa nce characteristics determined by [facility] in a manner consistent with CLIA requirements. [...] Organization Address City/State/ZIP Code Phon e Number [facility] [address] [place], [place] [address] [facility] [place] [address] Laboratory Medicine and Pathology [address] [place] documented in this encounter Visit Diagnoses Diagnosis Gluteal Tendinitis Right Hip documented in this encounter
--- OUTSIDE RECORDS SUMMARY | 2022-06-04 18:08 | XMS_ITS | Encounter Summary ---
:1940 Author Organization [facility] Address [address] [place] [address] Care Team Providers Name Role Phone Unavailable Primary Care Provider Unavailable Reason for Visit Reason Comments Med Refill Encounter Details Date Type Department Care Team Description 04/26/2022 Refill Division of Nephrology and Antelmo White M.D. Med Refill Hypertension in [address] [address] [place] [address] [place] [address] [phone] Social History Tobacco Use Types Packs/Day Years [...] 05/23/2022 relatives? How often do you attend tenriism or nondenominational Never 05/23/2022 services? Do you belong to any clubs or organizations such as No 05/23/2022 tenriism groups, unions, fraternal or athletic groups, or [...] place to sleep or slept in a fdc (including now)? Education Answer Date Recorded What is the highest level of school you have completed or 12 th grade 03/04/2019 the highest degree you have received? Sex Assigned at Date Recorded Male 04/08/2018 12:55 PM CDT documented as of this encounter Plan of Treatment Not on filedocumented as of this encounter Visit Diagnoses Diagnosis Hypertension Personal History Benign Prostatic Hyperplasia Without Obs truction documented in this encounter
--- OUTSIDE RECORDS SUMMARY | 2022-06-04 18:08 | XMS_ITS | Encounter Summary ---
:1939 Author Organization [facility] Address [address] [place] [address] Care Team Providers Name Role Phone Unavailable Primary Care Provider Unavailable Reason for Referral Outpatient (Routine) - Authorized Specialty Diagnoses / Procedures Referred By Contact Refer red To Contact Diagnoses Benign Prostatic Hyperplasia Hypertrophy With Obstruction Maco Mclean APRN, [facility] Procedures URO Uroflow C.N.P. [address] [place] [phone] Referral ID Status Reason Start Date Expiration Date Visits V isits Requested Authorized [id number] Authorized 03/02/2022 03/02/2023 1 1 utpatient (Routine) - Authorized Specialty Diagnoses / Procedures Referred By Contact Refer red To Contact Urology Maco Mclean APRN, C.N.P. [address] [phone] Referral ID Status Reason Start Date Expiration Date Visits V isits Requested Authorized [id number] Authorized 03/02/2022 03/01/2025 1 1 Reason for Visit Outpatient (Routine) - Closed Specialty Diagnoses / Procedures Referred By Contact Refer red To Contact Urology Maco Mclean APRN, C.N.P. [address] [phone] Referral ID Status Reason Start Date Expiration Date Visits Requ ested Visits Authorized [id number] Closed 09/27/2021 09/27/2022 1 1 Encounter Details Date Type Department Care Team Description 03/02/2022 Office Visit Department of Urology McleanMaco lazaro Marcin mcclendon Prostatic Hyperplasia Hypertrophy With Obstruction (Primary Dx); in [place], , TASHA, C.N.P. Incomplete Bladder Emptying [place] [address] [facility] [address] [place] [phone] Social History Tobacco Use Types Packs/Day Years [...] 05/23/2022 relatives? How often do you attend uatsdin or mormon Never 05/23/2022 services? Do you belong to any clubs or organizations such as No 05/23/2022 uatsdin groups, unions, fraternal or athletic groups, or [...] place to sleep or slept in a chcf (including now)? Education Answer Date Recorded What is the highest level of school you have completed or 12 th grade 03/04/2019 the highest degree you have received? Sex Assigned at Date Recorded Male 04/08/2018 12:55 PM CDT documented as of this encounter Progress Notes Maco Mclean APRN, C.NChristianP. - 03/02/2022 3:00 PM CDT SUBJECTIVE REASON FOR CONSULT Rezum follow-up HISTORY OF PRESENT ILLNESS Mr. Merrill is a 81 y.o. who is status post Rezum steam ablation of the prostate 05/11/2021. He received three treatments to his 35 g gland. Symptoms before intervention including frequency, urgency, andnocturia times 3 to 5 with slowing urinary stream and elevated PVR in the range of 150 to 470. Patient does note that strength of stream has been slower. He still has some persistent nocturia. Hehas retained an elevated PVR despite Rezum. He has no history of infections. He is not made bladder stones. He is not needed to be catheterize. He is not utilize CIC in the past. PHYSICAL EXAM General: Well-appearing, in no acute apparent distress. Uroflow:8, 3, 86, 371 PVR ASSESSMENT / PLAN #1 BPH status post Rezum Plan We discussed his flow study and residual urine which remain elevated despite a minimally invasive outlet procedure on a small gland. 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 We reviewed that one option would be intermittent catheterization at or b.i.d.. This would predispose him to intermittent infections. We discussed my bias towards holding off on this unless he is having other negative sequelae such as rising creatinine or infections. He will stay on tamsulosin and finasteride. Will plan on seeing him back in one year with a creatinine, flow study, and follow-up appointment. If things are getting worse, could consider initiating catheterization at that time. Alternative option would be consideration of enucleation which would likelyallow him to void more completely, however would carry the risk of bladder neck contracture as well as stress urinary continence. He will keep this in mind. For now, he will stay on his medications andattempt provocative maneuvers to promote complete bladder emptying. Will plan on changing managementstrategies if he were to develop some other confounding factor. Recommendations 1. Stay on tamsulosin and finasteride 2. Provocative maneuvers to promote complete bladder emptying 3. If patient is developing other adverse effects such as episodes of retention, rising creatinine, or urinary tract infections, would then consider additional intervention such as intermittent catheterization versus enucleation with Dr. Brown. 4. Creatinine, flow study with residual urine, and follow-up appointment in one year documented in this encounter Plan of Treatment Scheduled Orders Name Type Priority Associated Diagnoses Order S AudioTripchristine URO Uroflow Procedure Routine Benign Prostatic Expected: Hyperplasia 03/02/2023 Hypertrophy With (Approximat e), Obstruction Expires: 2022 Creatinine with Lab Routine Benign Prostatic Expected : Estimated GFR Hyperplasia 03/02/2023 Hypertrophy With (Approximat e), Obstruction Expires: 2022 Scheduled Referrals Name Type Priority Associated Diagnoses Order S Nasseoyusef Urology office Outpatient Referral Routine Expect ed: visit (clinic) 03/02/2023 (Approximate), Expires: 06/01/2023 documented as of this encounter Visit Diagnoses Diagnosis Benign Prostatic Hyperplasia Hypertrophy With Obstruction - Primary Incomplete Bladder Emptying documented in this encounter
--- OUTSIDE RECORDS SUMMARY | 2022-06-04 18:08 | XMS_ITS | Encounter Summary ---
:1940 Author Organization [facility] Address [address] [place] [address] Care Team Providers Name Role Phone Unavailable Primary Care Provider Unavailable Reason for Referral Outpatient (Routine) - Authorized Specialty Diagnoses / Procedures Referred By Contact Refer red To Contact Diagnoses Gluteal Tendinitis Right Hip Antelmo Reese M.D. [facility] Procedures DX Hip And Pelvis Right 2-3 Views [address] [place], [place] [phone] Referral ID Status Reason Start Date Expiration Date Visits V isits Requested Authorized [id number] Authorized 01/27/2022 01/27/2023 1 1 Outpatient (Routine) - Authorized Specialty Diagnoses / Procedures Referred By Contact Refer red To Contact Orthopedic Surgery Diagnoses Gluteal Tendinitis Right Hip Antelmo Reese [place] M.D. [address] [place] [address] Referral ID Status Reason Start Date Expiration Date Visits V isits Requested Authorized [id number] Authorized 01/27/2022 01/27/2023 1 1 Scheduling Instructions Ortho internal referral panel order, lisa ging before Consult visit Reason for Visit Appointment Request (Routine) - Closed Specialty Diagnoses / Procedures Referred By Contact Refer red To Contact Nephrology and Diagnoses Hypertension Essential Primary Hypertension Referral ID Status Reason Start Date Expiration Date Visits Requ ested Visits Authorized [id number] Closed 10/14/2021 10/14/2022 1 1 Encounter Details Date Type Department Care Team Description 01/27/2022 Office Visit Division of Nephrology Antelmo Reese Gl uteal Tendinitis Right Hip (Primary Dx); and Hypertension in [facility]. Hypertension Essential Primary [place], [place] [address] [place] [phone] Social History Tobacco Use Types Packs/Day Years Used Date Smoking Tobacco: Former Cigarettes 0 Quit : 2004 Smokeless Tobacco: Never Tobacco Cessation: Counseling Given: [...] 05/23/2022 relatives? How often do you attend spiritism or lutheran Never 05/23/2022 services? Do you belong to any clubs or organizations such as No 05/23/2022 spiritism groups, unions, fraternal or athletic groups, or [...] minutes do you engage in exercise at is 0 min 05/23/2022 level? Stress Answer [...] place to sleep or slept in a [facility] (including now)? Education Answer Date Recorded What is the highest level of school you have completed or 12 th grade 03/04/2019 the highest degree you have received? Sex Assigned at Date Recorded Male 04/08/2018 12:55 PM CDT documented as of this encounter Last Filed Vital Signs Vital Sign Reading Time Taken Comments Blood Pressure 164/84 01/27/2022 1:34 PM CDT Pulse 66 01/27/2022 1:34 PM CDT Temperature 36.4 ??C (97.5 ??F) 01/27/2022 1:34 PM CDT Respiratory Rate - - Oxygen Saturation - - Inhaled Oxygen Concentration - - Weight 89.8 kg (197 lb 15.6 oz) 01/27/2022 1:34 PM CDT Height 176.1 cm (5' 9.33) 01/27/2022 1:34 PM CDT Body Mass Index 28.96 01/27/2022 1:34 PM CDT documented in this encounter H&P Notes Antelmo Reese M.D. - 01/27/2022 2:00 PM CDT REFERRAL SOURCE Self REASON FOR VISIT Urinary frequency. Right lateral hip pain. Fatigue. HISTORY OF PRESENT ILLNESS It was a pleasure to see Mr. Merrill , who is a very pleasant 81 y.o. I also visited with his . He has urinary frequency. This is in spite of finasteride and tamsulosin. In April he underwent Rezum treatment, and for month he noted improved symptoms, but his symptoms have recurred. He has intermittent right lateral hip pain. He was seen in the orthopedic clinic about a year ago for gluteal tendinopathy. He underwent an injection. He is noting lower energy. He sleeps well. He now is napping at times during the day. PAST MEDICAL HISTORY 1. 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 2. Coronary heart disease. He rarely has chest pain. 3. Chronic bilateral buttock pain. He takes tramadol. 4. Chronic insomnia. Zolpidem works well. 5. Hyperlipidemia 6. Benign prostatic hyperplasia. 7. Left total hip arthroplasty. 8. Hypertension. 9. Peripheral arterial disease. REVIEW OF SYSTEMS Phlegm. He is a former smoker. No acid reflux. Bilateral calf discomfort after walking about 20 minutes. Some short-term memory loss. VITAL SIGNS BP (!) 164/84 Pulse 66 Temp 36.4 ??C (Tympanic) Ht 176.1 cm Wt 89.8 kg BMI 28.96 kg/m?? PHYSICAL EXAMINATION Constitutional Comments: Very pleasant. Healthy. Musculoskeletal General: Normal range of motion. Comments: Tenderness over the lateral right hip. LAB RESULTS CBC normal. Sodium 134. Creatinine 1.6 with estimated GFR 38. Cholesterol very good at 125. PSA 0.4.Urinalysis normal IMPRESSION 1. Right gluteal tendinopathy. 2. Benign prosthetic hyperplasia. He has urinary frequency. He underwent the Rezum procedure. 3. Fatigue and reduced energy. He takes Ambien 10 mg at bedtime for insomnia, and it works well. Possibly, now that he is older, itis contributing to some daytime fatigue. PLAN AND RECOMMENDATIONS For the right lateral hip pain, proceed with orthopedic consultation. For the benign prosthetic hyperplasia, follow-up in the urology clinic is planned. For the daytime fatigue, try reducing the Ambien to 5 mg at bedtime. I reviewed the above with the patient. Antelmo Reese M.D. documented in this encounter Plan of Treatment Scheduled Orders Name Type Priority Associated Diagnoses Order S chedule DX Hip And Pelvis Imaging RAD - Routine (most Gluteal Tendinit is Expected: Right 2-3 Views inpatients and all Right Hip 2021 outpatients) (Approximate), Expires: 04/29/2023 Scheduled Referrals Name Type Priority Associated Order Schedule Diagnoses Orthopedic Surgery - Outpatient Referral Routine Gluteal Tendi nitis Expected: Hip non surgical Right Hip 01/27/2022 consult (clinic) (Approximat e), Expires: 04/29/2023 documented as of this encounter Visit Diagnoses Diagnosis Gluteal Tendinitis Right Hip - Primary Hypertension Essential Primary documented in this encounter
--- OUTSIDE RECORDS SUMMARY | 2022-06-04 18:08 | XMS_ITS | Encounter Summary ---
:1940 Author Organization [facility] Address [address] [place] [address] Care Team Providers Name Role Phone Unavailable Primary Care Provider Unavailable Reason for Visit Outpatient (Routine) - Closed Specialty Diagnoses / Procedures Referred By Contact Refer red To Contact Diagnoses Benign Prostatic Hyperplasia Hypertrophy With Obstruction [facility] URO Uroflow C.N.P. [address] [place] [phone] Referral ID Status Reason Start Date Expiration Date Visits Requ ested Visits Authorized [id number] Closed 09/27/2021 09/27/2022 1 1 Encounter Details Date Type Department Care Team Description 03/02/2022 Procedure visit Department of Maco Mclean APRN, C.N.P. [address] [place] [address] [phone] Benign Prostatic Urology in Nestor Sanchez M.D. [address] [place] [phone] Hyperplasia [place], [place] Kayla Stubbs [address] [place] [phone] Hypertrophy With [address] [facility] [place] [phone] Social History Tobacco Use Types Packs/Day Years [...] 05/23/2022 relatives? How often do you attend restorationist or denominational Never 05/23/2022 services? Do you belong to any clubs or organizations such as No 05/23/2022 restorationist groups, unions, fraternal or athletic groups, or [...] documented as of this encounter Progress Notes Kayla Stubbs - 03/02/2022 1:45 PM CDT CHIEF COMPLAINT Patient here for a complex uroflow via calibrated electronic equipment and a residual urine check byultrasound. IMPRESSION/REPORT/PLAN Maco Mclean APRN, C.N.P. ordered the patient to have a complex uroflow with residual urine check via ultrasound. Patient had a moderate urge to void. Uroflow was completed at this time. Patientvoided 86 mL's and had a ultrasound residual of 371 mL's. Patient rates pain at 0 on the 0 to 10 pain scale post procedure. documented in this encounter Procedure Notes Nestor Sanchez M.D. - 03/02/2022 1:45 PM CDTAssociated Order(s): URO UROFLOW Reason for visit: UROFLOW The patient is here for a complex uroflow via calibrated electronic equipment and residual urine checked by ultrasound. Indications: BPH with lower urinary tract symptoms Peak flow: 7.5 ml/sec Average flow: 2.9 ml/sec Voiding time: 34.3 sec Total voided volume: 86 mls Continuous (fluctuating) flow pattern Residual urine: 371 ml by ultrasound Impression: Abnormal Uroflow. Elevated post void residual with low Qmax. Differential diagnosis includes bladder outlet obstruction vs hypocontractile bladder. Clinical correlation is recommended. documented in this encounter Plan of Treatment Not on filedocumented as of this encounter Procedures Procedure Name Priority Date/Time Associated Diagnosis Comme nts URO UROFLOW Routine 03/02/2022 1:45 PM Benign Prostatic Resul ts for this CDT Hyperplasia procedure are i n Hypertrophy With the results Obstruction section. documented in this encounter Results URO Uroflow (03/02/2022 1:45 PM CDT) Narrative Nestor Sanchez M.D. - 03/02/2022 1:45 PM CDT Nestor Sanchez M.D. ? 03/03/2022 ??7:54 AM Reason for visit: UROFLOW The patient is here for a complex uroflo w via calibrated electronic equipment and residual urine checked by ultrasound. Indications: ??BPH with lower urinary tr act symptoms Peak flow: ??7.5 ml/sec Average flow: ??2.9 ml/sec Voiding time: ??34.3 sec Total voided volume: ??86 mls Continuous (fluctuating) flow pattern Residual urine: ??371 ml by ultrasound Impression: Abnormal Uroflow. Elevated p ost void residual with low Qmax. ??Differential diagnosis inclu graciela bladder outlet obstruction vs hypocontractile bladder. Clinical correlation is recommended. Maco Mclean APRN, C.N.P. UROLOGY ORDERABLES documented in this encounter Visit Diagnoses Diagnosis Benign Prostatic Hyperplasia Hypertrophy With Obstruction documented in this encounter
--- OUTSIDE RECORDS SUMMARY | 2022-06-04 18:08 | XMS_ITS | Encounter Summary ---
:1940 Author Organization [facility] Address [address] [place] [address] Care Team Providers Name Role Phone Unavailable Primary Care Provider Unavailable Encounter Details Date Type Department Care Team Description 03/02/2022 Ancillary Procedure Department of Dermatology Social History Tobacco Use Types Packs/Day Years [...] 05/23/2022 relatives? How often do you attend jehovah's witness or orthodox Never 05/23/2022 services? Do you belong to any clubs or organizations such as No 05/23/2022 jehovah's witness groups, unions, fraternal or athletic groups, or [...] Procedure Name Priority Date/Time Associated Comments Diagnosis DERMATOLOGY IMAGE Routine 03/02/2022 12:00 Result s for this EXAM AM CDT procedure are i n the results section. documented in this encounter Results Chest 521-Dermatology Image Exam (03/02/2022 12:00 AM CDT) Specimen (Source) Anatomical Location Collection Method / Collectio n Time Received Time / Laterality Volume Narrative [facility] - 03/02/2022 12:01 PM CDT This order has been created and auto-finalized to support the import of images acquired without order. The clini sindy documentation to support these images can be found on the encounter arianna t produced images. Provider Not In System IMG NON RAD IMAGING PROCEDUR ES Performing Organization Address City/State/ZIP Code Phon e Number IIMS IIMS NA documented in this encounter Visit Diagnoses Not on filedocumented in this encounter
--- OUTSIDE RECORDS SUMMARY | 2022-06-04 18:08 | XMS_ITS | Encounter Summary ---
:1940 Author Organization [facility] Address [address] [place] [address] Care Team Providers Name Role Phone Unavailable Primary Care Provider Unavailable Reason for Visit Reason Comments Med Refill Encounter Details Date Type Department Care Team Description 12/27/2021 Refill Division of Nephrology and Antelmo White M.D. Med Refill Hypertension in [address] [phone] [place] [address] [place] [phone] Social History Tobacco Use Types Packs/Day Years [...] How often do you attend faith or orthodoxy Never 05/23/2022 services? Do you [...] place to sleep or slept in a custodial (including now)? Education Answer Date Recorded What [...] History Benign Prostatic Hyperplasia Without Obs truction Coronary Artery Disease Without Angina P ectoris Hypertension Essential Primary documented in this encounter Additional Health Concerns Assessment Noted Time PHQ-9 Depression Total Score: 1 02/08/2021 1:00 PM CDT documented as of this encounter
--- OUTSIDE RECORDS SUMMARY | 2022-06-04 18:08 | XMS_ITS | Encounter Summary ---
:1940 Author Organization [facility] [place] Address [address] [place] [address] Care Team Providers Name Role Phone Unavailable Primary Care Provider Unavailable Reason for Referral Outpatient (Routine) - Closed Specialty Diagnoses / Procedures Referred By Contact Refer red To Contact Diagnoses Gluteal Tendinitis Right Hip Shererll Mosqueda M.D. [facility] Procedures ORS US-Guided aspiration/injection [address] [place] [phone] Referral ID Status Reason Start Date Expiration Date Visits Requ ested Visits Authorized [id number] Closed 02/02/2022 02/02/2023 1 1 Encounter Details Date Type Department Care Team Description 02/02/2022 Orders Only Department of Jennifer Carty, Gluteal T endinitis Orthopedic Surgery in R.N. Right Hip (Primary Dx) [place], [place] 200 [facility] 200 [place] [phone] Social History Tobacco Use Types Packs/Day Years [...] 05/23/2022 relatives? How often do you attend yazidi or yazidism Never 05/23/2022 services? Do you belong to any clubs or organizations such as No 05/23/2022 yazidi groups, unions, fraternal or athletic groups, or [...] place to sleep or slept in a [facility] (including now)? Education Answer Date Recorded What is the highest level of school you have completed or 12 th grade 03/04/2019 the highest degree you have received? Sex Assigned at Date Recorded Male 04/08/2018 12:55 PM CDT documented as of this encounter Plan of Treatment Not on filedocumented as of this encounter Results IN ARTHCS ASP/INJ MJR JT W US (03/02/2022 8:22 AM CDT) Specimen [...] maker, as well as the roles of [facility] team members performing significant interventional tasks. Injection tissue technician/nurse was present f or assistance during [...] Diagnosis Gluteal Tendinitis Right Hip - Primary Gluteal Tendinitis Right Hip documented in this encounter
--- OUTSIDE RECORDS SUMMARY | 2022-06-04 18:08 | XMS_ITS | Encounter Summary ---
:1940 Author Organization [facility] Address [address] [place] [address] Care Team Providers Name Role Phone Unavailable Primary Care Provider Unavailable Reason for Referral Outpatient (Routine) - Authorized Specialty Diagnoses / Procedures Referred By Contact Refer red To Contact Nephrology and Diagnoses Pain Hip Bilateral Other Chronic Pain Antelmo Reese [facility] Hypertension [place] [address] [place] [address] Referral ID Status Reason Start Date Expiration Date Visits V isits Requested Authorized [id number] Authorized 01/27/2022 01/27/2023 1 1 Reason for Visit Outpatient (Routine) - Closed Specialty Diagnoses / Procedures Referred By Contact Refer red To Contact Nephrology and Antelmo Reese [facility] Hypertension [place] [address] [place] [phone] Referral ID Status Reason Start Date Expiration Date Visits Requ ested Visits Authorized [id number] Closed 11/29/2021 11/29/2022 1 1 Encounter Details Date Type Department Care Team Description 01/27/2022 Nurse Only Division of Nephrology and Antelmo White M.D. [address] [place] [phone] Hypertension in [place], Simran Sharma R.N. [address] [place] [phone] [place] [address] [place] [address] Social History Tobacco Use Types Packs/Day Years [...] 05/23/2022 relatives? How often do you attend christian or yazidism Never 05/23/2022 services? Do you belong to any clubs or organizations such as No 05/23/2022 christian groups, unions, fraternal or athletic groups, or [...] documented as of this encounter Progress Notes Simran Sharma RYanelis. - 01/27/2022 11:00 AM CDT Provider: Dr. Reese Reason for Visit: Chronic opioid therapy Patient with a history of: Chronic Bilateral Buttock Pain Date of last visit:02/08/21 Requested medication and dosage: tramadol 50 mg three times a day Date of last renewal: 09/19/21 Number of tablets remainin Average number of tablets per day: 3 Side effects: none Pain location and description: Buttock and Right Hip Current pain ratin Controlled substance agreement on file: yes . Opioid Assessment Scores: PEG Total Score: 2.67 (11/02/2021 10:00 AM) ORT Total Score (max 26): 6 (02/08/2021 1:00 PM) PHQ-9 Total Score (max 27): 1 (02/08/2021 1:00 PM) RUTH-7 Total Score (max 21): 1 (02/08/2021 1:00 PM) Last Urine Toxicology Results: Pain Management Panel Pain Management Panel Latest Ref Rng & Units 01/27/2022 BARBITURATE SCRN UR Cutoff: 200 ng/mL Negative PLAN Opioid Action Plan to be reviewed and updated by prescriber. The above information will be shared with the prescriber. See Education History for completed patient education. documented in this encounter Plan of Treatment Scheduled Orders Name Type Priority Associated Diagnoses Order S chedule Controlled Substance Lab Routine Pain Hip Bi lateral Expected: 01/27/2023 Monitoring Panel, Urine Other Chronic Lizzie n (Approximate), Expires: 2022 Scheduled Referrals Name Type Priority Associated Order Schedule Diagnoses Nephrology nurse Outpatient Referral Routine Pain Hip Bi lateral Expected: visit (clinic) Other Chronic Pain 023 (Approximate), Expires: 04/29/2023 documented as of this encounter Visit Diagnoses Diagnosis Pain Hip Bilateral - Primary Other Chronic Pain documented in this encounter
--- OUTSIDE RECORDS SUMMARY | 2022-06-04 18:08 | XMS_ITS | Encounter Summary ---
:1940 Author Organization [facility] Address [address] [place] [address] Care Team Providers Name Role Phone Unavailable [...] 05/23/2022 relatives? How often do you attend oriental orthodox or lutheran Never 05/23/2022 services? Do you belong to any clubs or organizations such as No 05/23/2022 oriental orthodox groups, unions, fraternal or athletic groups, or [...] place to sleep or slept in a [facility] (including now)? Education Answer Date Recorded What [...] Associated Comments Diagnosis DERMATOLOGY IMAGE Routine 03/02/2022 12:05 Result s for this EXAM AM CDT procedure are i n the results section. documented in this encounter Results Scalp 502-Dermatology Image Exam (03/02/2022 12:05 AM CDT) Specimen (Source) Anatomical Location Collection [...]
--- OUTSIDE RECORDS SUMMARY | 2022-06-04 18:08 | XMS_ITS | Encounter Summary ---
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, in [place], [place] Other C hronic Pain [place], [place] [address] [address] [facility] [phone] [place], [place] (Work) [phone] Social History Tobacco Use [...] 05/23/2022 relatives? How often do you attend mandaen or adventist Never 05/23/2022 services? Do you belong to any clubs or organizations such as No 05/23/2022 mandaen groups, unions, fraternal or athletic groups, or [...] Procedure Name Priority Date/Time Associated Comments Diagnosis LIPID PANEL, S Routine 01/27/2022 11:41 AM Pain Hip Delio ateral Results for this CDT Coronary Artery procedure ar e in Disease Without the results Angina Pectoris section. Hypertension Essential Primar y Other Chronic Pain PROSTATE-SPECIFIC AG Routine 01/27/2022 11:41 AM Pain Hi p Bilateral Results for this (PSA) SCRN, S CDT Coronary Artery procedure a re in Disease Without the results Angina Pectoris section. Hypertension Essential Primar y Other Chronic Pain CBC WITHOUT Routine 01/27/2022 11:41 AM Pain Hip Delio ateral Results for this DIFFERENTIAL, B CDT Coronary Artery procedure are in Disease Without the results Angina Pectoris section. Hypertension Essential Primar y Other Chronic Pain BUN (BLOOD UREA Routine 01/27/2022 11:41 AM Pain Hip Delio ateral Results for this NITROGEN), S/P CDT Coronary Artery procedure are in Disease Without the results Angina Pectoris section. Hypertension Essential Primar y Other Chronic Pain SODIUM, S/P Routine 01/27/2022 11:41 AM Pain Hip Delio ateral Results for this CDT Coronary Artery procedure ar e in Disease Without the results Angina Pectoris section. Hypertension Essential Primar y Other Chronic Pain POTASSIUM, S/P Routine 01/27/2022 11:41 AM Pain Hip Delio ateral Results for this CDT Coronary Artery procedure ar e in Disease Without the results Angina Pectoris section. Hypertension Essential Primar y Other Chronic Pain GLUCOSE, FASTING, Routine 01/27/2022 11:41 AM Pain Hip B ilateral Results for this S/P CDT Coronary Artery procedure ar e in Disease Without the results Angina Pectoris section. Hypertension Essential Primar y Other Chronic Pain CREATININE WITH Routine 01/27/2022 11:41 AM Pain Hip Delio ateral Results for this EGFR, S/P CDT Coronary Artery procedure ar e in Disease Without the results Angina Pectoris section. Hypertension Essential Primar y Other Chronic Pain CHLORIDE, S/P Routine 01/27/2022 11:41 AM Pain Hip Delio ateral Results for this CDT Coronary Artery procedure ar e in Disease Without the results Angina Pectoris section. Hypertension Essential Primar y Other Chronic Pain BICARBONATE, B/S/P Routine 01/27/2022 11:41 AM Pain Hip Bilateral Results for this CDT Coronary Artery procedure ar e in Disease Without the results Angina Pectoris section. Hypertension Essential Primar y Other Chronic Pain documented in this encounter Results PSA (Prostate-Specific Antigen) Screen (01/27/2022 11:41 AM CDT) P athologist Signature Prostate-Specif 0.49 <=7.2 ng/mL 01/27/2022 DTL ic Ag 12:47 PM CDT Comment: ----ADDITIONAL INFORMATION---- The testing method is an electrochemilum inescence assay manufactured by [employer] and performed on the Modular or Ambrocio system . Values obtained with different assay met hods or kits may be different and cannot be used inte rchangeably. Test results cannot be interpreted as ab solute evidence for the presence or absence of malignant disease. Specimen Anatomical Collection Method Collection Time Receive d Time (Source) Location / / Volume Laterality Blood (Blood, 01/27/2022 11:41 01/27/2022 Venous) AM CDT 12:21 PM CDT Antelmo Reese M.D. LAB BLOOD ADD-ON Performing Organization Address City/State/ZIP Code Phon e Number [facility] - 200 [place], [place] [address] [facility] [place] [address] Laboratories[address] (ABNORMAL) BUN (Blood Urea Nitrogen) (01/27/2022 11:41 AM CDT) P athologist Signature BUN (Blood Urea 30 (H) 8 - 24 01/27/2022 DTL Nitrogen), S mg/dL 12:47 PM CDT Specimen Anatomical Collection Method Collection Time Receive d Time (Source) Location / / Volume Laterality Blood (Blood, 01/27/2022 11:41 01/27/2022 Venous) AM CDT 12:21 PM CDT Antelmo Reese M.D. LAB BLOOD ADD-ON Performing Organization Address City/State/[facility] Code Phon e Number [facility] - 200 [place], [place] [address] [place] [address] Laboratories-[address] (ABNORMAL) Creatinine with Estimated GFR (01/27/2022 11:41 AM CDT) Analysis Performed At Patho logist Time Signature Creatinine 1.67 (H) 0.74 - 01/27/2022 DTL 1.35 mg/dL 12:47 PM CDT eGFR-Non 38 (L) >=60 01/27/2022 DTL Black/ mL/min/BSA 12:47 PM CDT Swedish Comment: ----ADDITIONAL INFORMATION---- Estimated GFR calculated using the 2009 CKD_EPI creatinine equation. eGFR-Black/ 43 (L) >=60 mL/min/BSA 2021 12:47 PM CDT DTL Comment: ----ADDITIONAL INFORMATION---- Estimated GFR calculated using the 2009 CKD_EPI creatinine equation. Specimen Anatomical Collection Method Collection Time Receive d Time (Source) Location / / Volume Laterality Blood (Blood, 01/27/2022 11:41 01/27/2022 Venous) AM CDT 12:21 PM CDT Antelmo Reese M.D. LAB BLOOD ADD-ON Performing Organization Address City/[facility]/ZIP Code Phon e Number [facility] - [address] [place], [place] [address] [place] [address] [facility] [address] [facility] Glucose, Fasting (01/27/2022 11:41 AM CDT) P athologist Signature Glucose, P 80 70 - 100 01/27/2022 DTL mg/dL 12:38 PM CDT Last Intake 16 hr 01/27/2022 DTL 11:41 AM CDT Specimen Anatomical Collection Method Collection Time Receive d Time (Source) Location / / Volume Laterality Blood (Blood, 01/27/2022 11:41 01/27/2022 Venous) AM CDT 12:21 PM CDT Antelmo Reese M.D. LAB BLOOD NON ADD-ON Performing Organization Address City/[facility]/ZIP Code Phon e Number [facility] - [address] [place], [place] [address] [facility] [place] [place], [place] [id number] [place] [address] [address] [facility] Bicarbonate (01/27/2022 11:41 AM CDT) P athologist Signature Bicarbonate, S 27 22 - 29 01/27/2022 DTL mmol/L 12:47 PM CDT Specimen Anatomical Collection Method Collection Time Receive d Time (Source) Location / / Volume Laterality Blood (Blood, 01/27/2022 11:41 01/27/2022 Venous) AM CDT 12:21 PM CDT Antelmo Reese M.D. LAB BLOOD ADD-ON Performing Organization Address City/[facility]/ZIP Code Phon e Number [facility] - [address] [place], [place] [address] [place] [address] [address] [facility] (ABNORMAL) CBC without Differential (01/27/2022 11:41 AM CDT) Patholo gist Method Time Signature Hemoglobin 13.0 (L) 13.2 - 01/27/2022 DTL 16.6 g/dL 12:24 PM CDT Hematocrit 38.9 38.3 - 01/27/2022 DTL 48.6 % 12:24 PM CDT Erythrocytes 4.24 (L) 4.35 - 01/27/2022 DTL 5.65 12:24 PM CDT x10(12)/L MCV 91.7 78.2 - 01/27/2022 DTL 97.9 fL 12:24 PM CDT RBC Distrib Width 12.8 11.8 - 01/27/2022 DTL 14.5 % 12:24 PM CDT Platelet Count 185 135 - 317 01/27/2022 DTL x10(9)/L 12:24 PM CDT Leukocytes 7.8 3.4 - 9.6 01/27/2022 DTL x10(9)/L 12:24 PM CDT Specimen Anatomical Collection Method Collection Time Receive d Time (Source) Location / / Volume Laterality Blood (Blood, 01/27/2022 11:41 01/27/2022 Venous) AM CDT 12:15 PM CDT Antelmo Reese M.D. LAB BLOOD ADD-ON Performing Organization Address City/[facility] Phon e Number [facility] - [address] (ABNORMAL) Chloride (01/27/2022 11:41 AM CDT) P athologist Signature Chloride, S 97 (L) 98 - 107 01/27/2022 DTL mmol/L 12:47 PM CDT Specimen Anatomical Collection Method Collection Time Receive d Time (Source) Location / / Volume Laterality Blood (Blood, 01/27/2022 11:41 01/27/2022 Venous) AM CDT 12:21 PM CDT Antelmo Reese M.D. LAB BLOOD ADD-ON Performing Organization Address City/[facility]/ZIP Code Phon e Number [facility] - [address] Lipid Panel (01/27/2022 11:41 AM CDT) P athologist Signature Triglycerides 100 mg/dL 01/27/2022 DTL 12:47 PM CDT Comment: ----REFERENCE VALUE---- Normal: <150 mg/dL Borderline High: 150-199 mg/dL High: 200-499 mg/dL Very High: > or =500 mg/dL Cholesterol, Total 125 mg/dL 01/27/2022 12:47 PM C DT DTL Comment: ----REFERENCE VALUE---- Desirable: < 200 mg/dL Borderline High: 200 - 239 mg/dL High: > or = 240 mg/dL Cholesterol, LDL, Calculated 47 mg/dL 01/27/2022 12:47 PM CDT DTL Comment: ----REFERENCE VALUE---- Desirable: <100 mg/dL Above Desirable: 100-129 mg/dL Borderline High: 130-159 mg/dL High: 160-189 mg/dL Very High: >=190 mg/dL ----ADDITIONAL INFORMATION---- LDL cholesterol calculated using the Mendez/NIH equation. Cholesterol, HDL, S 60 >=40 mg/dL 01/27/2022 12:47 PM CDT DTL Cholesterol, Non-HDL, Calculated 65 mg/dL 12:47 PM CDT DTL Comment: ----REFERENCE VALUE---- Desirable: <130 mg/dL Above Desirable: 130-159 mg/dL Borderline High: 160-189 mg/dL High: 190-219 mg/dL Very High: > or =220 mg/dL Fasting (8 HR or more) Yes 01/27/2022 12:21 PM CDT DTL Specimen Anatomical Collection Method Collection Time Receive d Time (Source) Location / / Volume Laterality Blood (Blood, 01/27/2022 11:41 01/27/2022 Venous) AM CDT 12:21 PM CDT Antelmo Reese M.D. LAB BLOOD ADD-ON Performing Organization Address City/State/ZIP Code Phon e Number [facility] - [address] [place], [place] [address] [facility] [place] [address] Laboratories-[facility] [address] (ABNORMAL) Sodium (01/27/2022 11:41 AM CDT) athologist Signature Sodium, S 134 (L) 135 - 145 01/27/2022 DTL mmol/L 12:47 PM CDT Specimen Anatomical Collection Method Collection Time Receive d Time (Source) Location / / Volume Laterality Blood (Blood, 01/27/2022 11:41 01/27/2022 Venous) AM CDT 12:21 PM CDT Antelmo Reese M.D. LAB BLOOD ADD-ON Performing Organization Address City/[facility] Phon e Number [facility] - [address] Potassium (01/27/2022 11:41 AM CDT) athologist Signature Potassium, S 4.1 3.6 - 5.2 01/27/2022 DTL mmol/L 12:47 PM CDT Specimen Anatomical Collection Method Collection Time Receive d Time (Source) Location / / Volume Laterality Blood (Blood, 01/27/2022 11:41 01/27/2022 Venous) AM CDT 12:21 PM CDT Antelmo Reese M.D. 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
--- OUTSIDE RECORDS SUMMARY | 2022-06-04 18:08 | XMS_ITS | Encounter Summary ---
:1940 Author Organization [facility] Address [address] [place] [address] Care Team Providers Name Role Phone Unavailable Primary Care Provider Unavailable Reason for Referral Outpatient (Routine) - Closed Specialty Diagnoses / Procedures Referred By Contact Refer red To Contact Dermatology Diagnoses Pain Hip Bilateral Coronary Artery Disease Without Angina Pectoris Hypertension Essential Primary Other Chronic Pain Antelmo Reese M.D. [facility] [address] [place] [phone] Referral ID Status Reason Start Date Expiration Date Visits V isits Requested Authorized [id number] Closed Specialty 12/12/2021 12/12/2022 1 1 Services Required Reason for Visit Reason Comments Pre-visit Testing Orders Encounter Details Date Type Department Care Team Description 12/12/2021 Clinical Communication Division of Antwan Reese-v isit Testing Nephrology and Antelmo Clayton M.D. Orders Hypertension in [address] [place] [address] [place] [phone] [place], [place] [phone] (Work) [phone] Social History Tobacco Use Types Packs/Day Years [...] 05/23/2022 relatives? How often do you attend latter-day or judaism Never 05/23/2022 services? Do you belong to any clubs or organizations such as No 05/23/2022 latter-day groups, unions, fraternal or athletic groups, or [...] place to sleep or slept in a long term (including now)? Education Answer Date Recorded What is the highest level of school you have completed or 12 th grade 03/04/2019 the highest degree you have received? Sex Assigned at Date Recorded Male 04/08/2018 12:55 PM CDT documented as of this encounter Miscellaneous Notes Telephone Encounter - Adalgisa Giullen - 12/12/2021 12:26 PM CDT Please sign [place] orders Thank you documented in this encounter Plan of Treatment Scheduled Referrals Name Type Priority Associated Order Schedule Diagnoses Dermatology - General Outpatient Referral Routine Pain H ip Bilateral Expected: consult (clinic) Coronary Artery 01/28/20 22, Disease Without Expires: Angina Pectoris 01/23/2026 Hypertension Essential Primar y Other Chronic Pain documented as of this encounter Results Urinalysis with Microscopic: Urine, Midstream (01/27/2022 11:57 AM CDT) [facility] Method Time Signature Source Urine, Urine, 01/27/2022 [...] M.D. LAB URINE ORDERABLES Performing Organization Address [facility] Phon e Number [facility] - [address] [address] Laboratories-[facility] 200 [facility] PSA (Prostate-Specific Antigen) Screen (01/27/2022 11:41 AM CDT) athologist Signature Prostate-Specif 0.49 <=7.2 ng/mL 01/27/2022 DT ic Ag 12:47 PM CDT Comment: ----ADDITIONAL [...] M.D. LAB BLOOD ADD-ON Performing Organization Address City/[facility] Phon e Number [facility] - 200 [place], [place] [address] [facility] [place] [address] [facility] [address] (ABNORMAL) BUN (Blood Urea Nitrogen) (01/27/2022 [...] City/State/ZIP Code Phon e Number [facility] - [address] (ABNORMAL) Creatinine with Estimated GFR (01/27/2022 11:41 AM CDT) Analysis Performed At Patho logist Time Signature Creatinine 1.67 (H) 0.74 - 01/27/2022 DTL 1.35 mg/dL 12:47 PM CDT eGFR-Non 38 (L) >=60 01/27/2022 DTL Black/ mL/min/BSA 12:47 PM CDT Peruvian Comment: ----ADDITIONAL INFORMATION---- Estimated GFR calculated using [...] City/State/ZIP Code Phon e Number [facility] - [address] Glucose, Fasting (01/27/2022 11:41 AM CDT) P athologist Signature Glucose, P 80 70 - 100 01/27/2022 DTL mg/dL 12:38 PM CDT Last Intake 16 hr 01/27/2022 DTL 11:41 AM CDT Specimen Anatomical Collection Method Collection Time Receive d Time (Source) Location / / Volume Laterality Blood (Blood, 01/27/2022 11:41 01/27/2022 Venous) AM CDT 12:21 PM CDT Antelom Reese M.D. LAB BLOOD NON ADD-ON Performing Organization Address City/[facility] Phon e Number [facility] - [address] Bicarbonate (01/27/2022 11:41 AM CDT) P athologist Signature Bicarbonate, S 27 22 - 29 01/27/2022 DTL mmol/L 12:47 PM CDT Specimen Anatomical Collection Method Collection Time Receive d Time (Source) Location / / Volume Laterality Blood (Blood, 01/27/2022 11:41 01/27/2022 Venous) AM CDT 12:21 PM CDT Antelmo Reese M.D. LAB BLOOD ADD-ON Performing Organization Address City/[facility] Phon e Number [facility] - [address] (ABNORMAL) CBC without Differential (01/27/2022 11:41 AM [...] M.D. LAB BLOOD ADD-ON Performing Organization Address City/[facility] Phon e Number [facility] - [address] [place] [address] (ABNORMAL) Chloride (01/27/2022 11:41 AM CDT) P athologist Signature Chloride, S 97 (L) 98 - 107 01/27/2022 DTL mmol/L 12:47 PM CDT Specimen Anatomical Collection Method Collection Time Receive d Time (Source) Location / / Volume Laterality Blood (Blood, 01/27/2022 11:41 01/27/2022 Venous) AM CDT 12:21 PM CDT Antelmo Reese M.D. LAB BLOOD ADD-ON Performing Organization Address City/[facility] Phon e Number [facility] - 200 [place], [place] [address] [facility] [place] [id number] [address] Lipid Panel (01/27/2022 11:41 AM CDT) [...] M.D. LAB BLOOD ADD-ON Performing Organization Address City/[facility]/ZIP Code Phon e Number [facility] - [address] [place], [place] [address] [facility] [place] [address] Laboratories-[facility] 200 [facility] (ABNORMAL) Sodium (01/27/2022 11:41 AM CDT) P athologist Signature Sodium, S 134 (L) 135 - 145 01/27/2022 DTL mmol/L 12:47 PM CDT Specimen Anatomical Collection Method Collection Time Receive d Time (Source) Location / / Volume Laterality Blood (Blood, 01/27/2022 11:41 01/27/2022 Venous) AM CDT 12:21 PM CDT Antelmo Reese M.D. LAB BLOOD ADD-ON Performing Organization Address City/State/ZIP Code Phon e Number [facility] - [address] [place], [place] [address] [place] [address] [facility] [address] [facility] Potassium (01/27/2022 11:41 AM CDT) athologist Signature Potassium, S 4.1 3.6 - 5.2 01/27/2022 DTL mmol/L 12:47 PM CDT Specimen Anatomical Collection Method Collection Time Receive d Time (Source) Location / / Volume Laterality Blood (Blood, 01/27/2022 11:41 01/27/2022 Venous) AM CDT 12:21 PM CDT Antelmo Reese M.D. 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
--- OUTSIDE RECORDS SUMMARY | 2022-06-04 18:08 | XMS_ITS | Encounter Summary ---
:1940 Author Organization [facility] Address [address] [place] [phone] Care Team Providers Name Role Phone Unavailable Primary Care Provider Unavailable Reason for Referral Outpatient (Routine) - Authorized Specialty Diagnoses / Procedures Referred By Contact Refer red To Contact Diagnoses Neoplasm Uncertain Behavior Skin Bo Molina M.D. [facility] Procedures JADE Excision 1-2 sites [address] [place] [phone] Referral ID Status Reason Start Date Expiration Date Visits V isits Requested Authorized [id number] Authorized 03/02/2022 03/02/2023 1 1 Reason for Visit Outpatient (Routine) - Closed Specialty Diagnoses / Procedures Referred By Contact Refer red To Contact Dermatology Diagnoses Pain Hip Bilateral Coronary Artery Disease Without Angina Pectoris Hypertension Essential Primary Other Chronic Pain Antelmo Reese M.D. [facility] [address] [place] [phone] Referral ID Status Reason Start Date Expiration Date Visits V isits Requested Authorized [id number] Closed Specialty 12/12/2021 12/12/2022 1 1 Services Required Encounter Details Date Type Department Care Team Description 03/02/2022 Comprehensive Visit Department of Bo Molina Uncertain Behavior Skin (Primary Dx); Dermatology in [place] [place] Pain Hip Bilateral; [place], [place] [address] [place] [address] Coronary Artery Disease Without Angina P ectoris; [address] [place] [address], [place] Hypertension Essential Prima ry; [place] [address] Other Chronic Pain [id number] [phone] Social History Tobacco Use Types Packs/Day Years [...] 05/23/2022 relatives? How often do you attend congregational or amish Never 05/23/2022 services? Do you belong to any clubs or organizations such as No 05/23/2022 congregational groups, unions, fraternal or athletic groups, or [...] PM CDT documented as of this encounter Consult Notes Kam Lema - 03/02/2022 9:15 AM CDT REFERRED BY Antelmo Reese M.D. CHIEF COMPLAINT/REASON FOR VISIT Boil on right axillae, Full body skin check HISTORY OF PRESENT ILLNESS Mr. Familia Merrill is a pleasant 81 y.o. male who presents today for a full skin cancer screening examination. The patient has no personal history of skin cancer, but has had a severely atypical nevus found on shave biopsy on the right upper abdomen, 04/12/2018, and excised 06/27/2018. His last evaluation in [facility] was 12/24/2020, at which time 5 actinic keratoses on the face were treated with liquid nitrogen cryotherapy. Other skin findings were benign at that time. Today, he reports that about 10 days ago, he developed an enlarging boil in his left axillae, which eventually ruptured with drainage of purulent fluid. He states the area became itchy, for which he has been using hydrocortisone cream with adequate relief for the past few days. He states he has occasionally developed similar boils in the past. He otherwise has no lesions of concern today. No Known Allergies PAST DERMATOLOGIC HISTORY Negative for skin cancer FAMILY DERMATOLOGIC HISTORY Positive for nonmelanoma skin cancer, sister PHYSICAL EXAM General: Awake, alert, in no acute distress, and with appropriate affect. Eyes: No scleral injection or icterus. No eyelid abnormalities. Lymph: No lower extremity edema. Skin: I have examined the scalp, face, neck, chest, abdomen, back, buttocks, bilateral upper extremities, and bilateral lower extremities. Pena skin type II. Moderate dermatoheliosis in sun-exposed areas. Scattered light brown to dark brown, symmetric, uniform macules and thin papules on the trunk, and extremities with reassuring features under dermoscopy. Multiple pink to brown waxy, stuck-onappearing papules and plaques scattered throughout the exam, consistent with seborrheic keratoses. Various 1-2 pink to red dome-shaped papules noted consistent with antonio angiomas. Scattered throughout the exam on the trunk and face, including just below the left eyebrow were skin colored, soft-domedpapule with a buttonhole sign consistent with neurofibromas. On the right forearm is a 3 cm x 2 cm soft, mobile, subcutaneous nodule consistent with a lipoma. On the forehead is a 5 cm x 4 cm soft, mobile, subcutaneous nodule, consistent with a lipoma. There are skin-colored cystic lesions with central punctum behind the right earlobe and on the posterior neck, consistent with epidermal inclusion cysts. Involving the left rastafari, left forehead, midline forehead, and right preauricular cheek are red macules with overlying adherent scale in sandpaper-like texture, consistent with actinic keratosis (LN x 8). On the right temporal hairline, there is a red, shiny macule with telangiectasias (shave ED&C). On the left chest, there is a red, blanching macule with telangiectasis (shave ED&C). In the right axilla, there is an intensely erythematous plaque with an open tract present, without drainage. Wood's lamp examination was negative for fluorescence. Upon further palpation, a small deeper cystic/nodular lesion can be palpated adjacent to the tract (recommended for excision) IMPRESSION/REPORT/PLAN #1 Skin cancer screening examination #2 Dermatoheliosis #3 History of atypical nevus, excised 2019 Sun protection and sun avoidance were reviewed with the patient. Educational materials were providedregarding skin self-examination, the warning signs and symptoms of skin cancer, and the proper use of sunscreens. I would recommend a full skin cancer screening examination with an appropriately trained clinician every 12 months or sooner for any concerns. #4 Actinic keratosis x8 Actinic keratosis are pre-cancerous skin growths caused by sun exposure. Treatment is recommended. Atotal of 8 actinic keratosis were treated with liquid nitrogen. Location: left cheek, left rastafari, forehead, and right preauricular cheek. CONSENT Discussed the risks, benefits, alternatives, and the necessity of other members of the healthcare team participating in the procedure. All questions answered and consent given. PROCEDURE INFORMATION Given the precancerous nature of this lesion(s), treatment is medically indicated. After discussion of the risks, benefits and alternatives to treatment with cryotherapy, informed consent was obtained.We treated a total of 8 lesion(s) with two 15-second freeze-thaw cycles of liquid nitrogen cryotherapy. The patient tolerated the procedure well. Aftercare instructions were provided in written and verbal form to the patient. Should any of these lesions recur, the patient should return for biopsy or further evaluation. Wound care was discussed. Patient offered educational material. #5 Neoplasm of uncertain behavior, x2 - Shave ED&C was performed to two lesions, one on the right temporal hairline (r/o BCC), and oneon the left chest (r/o BCC) PROCEDURAL PAUSE Prior to the procedure, final verification of the patient identity and correctly marked surgical site was performed. SHAVE BIOPSY PROCEDURE The anesthesia used was 1% lidocaine with epinephrine 1:200,000. The skin was prepped in a sterile fashion with alcohol. A shave biopsy specimen was obtained from two sites: the right temporal hairline(#1) and the left chest (#2). Blood loss: Minimal. Complications: None. Wound care: Routine. The specimen was sent for Dermatopathology. The pathology report and recommendations will be communicated electronically. ELECTRODESICCATION & CURETTAGE The anesthesia used was 1% lidocaine with epinephrine 1:200,000. The skin was prepped in a sterile fashion with alcohol. The lesions were curetted with a 3-mm curette in three different directions and electrodesiccation of the base until clinically tumor-free margins were obtained. Postoperative size:1 x 0.6 cm for #1 and 1.5 x 0.6 cm for #2. Estimated blood loss: Minimal. Complications: None. Woundcare: Routine. Specimen sent to Dermatopathology. Biopsy report is pending. INFORMED CONSENT Discussed the risks, benefits, alternatives, and the necessity of other members of the healthcare team participating in the procedure. All questions answered and consent given. #6 Cyst/nodule associated with sinus tract, R axilla - Open sinus tract noted in a background of erythema in the right axilla, associated with prior rupture of a boil per the patient. Suspect related to rupture of an EIC, abscess, or furuncle with secondary development of a sinus tract. - Will schedule excision of the cyst/nodule associated with fistula tract, to be performed by dermatologic surgery - Advised the patient to discontinue the use of topical steroids, especially given the lesion is no longer pruritic, as this could worsen erythema/hyperpigmentation in the axilla. Low suspicion for erythrasma or intertrigo given lack of Wood's lamp fluorescence. #7 Lipoma, right forearm and right forehead We discussed the benign nature of these lesions that no treatment is required. Patient reports he has had these for many years and had them evaluated multiple times. He does not find these lesions bothersome. He feels they have not changed in size and remain asymptomatic. Patient would like to continue to monitor these lesions and should he desire removal he will follow-up. Measurements taken today. 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 No treatment is required. I recommend continued observation. Should symptoms or changes develop related to this condition, I would recommend a return visit for reassessment. #11 Benign-appearing nevi The ABCDE criteria for melanoma was reviewed with the patient. None of the patient's nevi reach the clinical threshold for biopsy. I recommend continued sun protection, self-skin examinations, and observation. Should any of the patient's nevi change in size, color, texture, or shape or develop symptoms such as itching or bleeding, I recommend an immediate return visit for reassessment. PATIENT EDUCATION Ready to learn. No apparent learning barriers were identified. Learning preferences include listening. Explained diagnosis and treatment plan; patient/guardian of patient expressed understanding of thecontent. Scribed for Bo Molina M.D. by Kam Lema, on 03/02/2022, 9:49 AM CDT. I personally performed the services described in this documentation, as scribed in my presence, and it is both accurate and complete. Associated attestation - Bo Molina M.D. - 03/07/2022 9:44 AM CDT I saw the patient with the medical student. I was present for or re-performed the History of PresentIllness. I saw and evaluated the patient, participating in albarado portions of the service, performed myown exam, and did the medical decision making. I have reviewed the above documentation and agree or amended. Briefly, 8 AKs were treated with cryotherapy. And two suspected superficial basal cell carcinomas were shave biopsied and treated at that time with ED&C. In addition, patient had a brightly erythematous patch on the right axilla with a tract suspicious of ruptured cyst and secondary irritant contact derm or steroid induced erythema. Low suspicion for erythrasma with negative wood's lamp exam but we recommend return for excision of tract/punctum/nodule on right axilla and recommended miconazole topically daily x 2 weeks (stop steroids). Benign lipoma on forehead. A total of 30 minutes was spent on the encounter of portrait consultant face to face time. documented in this encounter Plan of Treatment Scheduled Orders Name Type Priority Associated Diagnoses Order S chedule JADE Excision 1-2 Dermatology Routine Neoplasm Uncertain Expec adenike: 03/02/2022 sites Behavior Skin (Approximate), Expires: 2022 documented as of this encounter Procedures Procedure Name Priority Date/Time Associated Diagnosis Comme nts DERMATOPATHOLOGY Routine 03/02/2022 10:05 AM Pain Hip Bi lateral Results for this CDT Coronary Artery procedure ar e in Disease Without the results Angina Pectoris section. Hypertension Essential Primar y Other Chronic Pain documented in this encounter Results Dermatopathology (03/02/2022 10:05 AM CDT) Component Value Ref Test Analysis Performed Pathologis t Range Method Time At Signature 03/08/2022 [facility] 10:55 AM CDT Report Avelino Bliss 03/08/2022 [facility] electronically [facility] 10:55 AM signed by CDT Gross Description A: ?? Received in formalin labeled with the patie nt's name, 03/08/2022 [facility] medical record number, and right temporal scalp is a 1.2 10:55 AM x 1.0 x 0.1 cm pale montano skin shave biopsy. ??Diffusely CDT involving the entire skin surface is a pale montano-canas, lightly pigmented lesion with well-circumscribed borders. Specimen is trisected and submitted entirely in cassette A1. ??Grossed by MERRILL. B: ?? Received in formalin labeled with the patient's name, medical record number, and left lower chest is a 1.3 x 0.7 x 0.1 cm white, previously inked blue skin shave biopsy. ??Diffusely involving the skin surface is a montano, slightly keratotic, firm lesion with well-circumscribed borders. ??The specimen is bisected longitudinally and submitted entirely in cassette B1. ??Grossed by MERRILL. Interpretation FINAL DIAGNOSIS 03/08/2022 [facility] A. ??Right temporal scalp, Skin shave biopsy: ??Superficial 10:55 AM and nodular basal cell carcinoma, involving biopsy border CDT B. ??Left lower chest, Skin shave biopsy: ??Superficial and nodular basal cell carcinoma, involving biopsy border Specimen (Source) Anatomical Collection Method Collection Time Re ceived Time Location / / Volume Laterality Skin (Right 03/02/2022 10:05 temporal scalp) AM CDT Skin (Left lower 03/02/2022 10:11 chest) AM CDT Narrative This result has an attachment that is no t available. Bo Molina M.D. LAB PATH DERM ORDERABLES Performing Organization Address City/State/ZIP Code Phon e Number [facility] - [address] [place], [place] [address] [facility] [place] [address] Laboratories-[facility] [address] documented in this encounter Visit Diagnoses Diagnosis Neoplasm Uncertain Behavior Skin - Prima ry Pain Hip Bilateral Coronary Artery Disease Without Angina P ectoris Hypertension Essential Primary Other Chronic Pain documented in this encounter
--- OUTSIDE RECORDS SUMMARY | 2022-06-04 18:08 | XMS_ITS | Encounter Summary ---
:1940 Author Organization [facility] Address [address] [place] [address] Care Team Providers Name Role Phone Unavailable Primary Care Provider Unavailable Encounter Details Date Type Department Care Team Description 02/02/2022 Clinical Communication Department of Sherrell Mosqueda Orthopedic Surgery in [address] [place], [place] [phone] Social History Tobacco Use Types Packs/Day Years [...] 05/23/2022 relatives? How often do you attend roman catholic or church Never 05/23/2022 services? Do you belong to any clubs or organizations such as No 05/23/2022 roman catholic groups, unions, fraternal or athletic groups, or [...] this encounter Miscellaneous Notes Telephone Encounter - Jennifer Carty, RChristianNChristian - 02/02/2022 2:12 PM CDT Order per Dr. Mosqueda for right Troch bursa injection. Ready to schedule Telephone Encounter - Libby Irwin - 02/02/2022 1:53 PM CDT Who called: Patient (saw Dr. Ralph in the past - now Dr. Mosqueda or [place]?) Reason for call today: He's having the same pain as before and would like another right hip injection like had last time - looks like Xylocaine on 05/11/21. Please order for the PASS to schedule. If he has Medicare they don't do prior auth. Otherwise for BCBS it will go into [facility] queue if it's schedule out a couple weeks. Expected reply: Call patient at home: [phone] [facility] Authorization Present: N/A-patient request documented in this encounter Plan of Treatment Not on filedocumented as of this encounter Visit Diagnoses Not on filedocumented in this encounter
--- OUTSIDE RECORDS SUMMARY | 2022-06-04 18:09 | XMS_ITS | Encounter Summary ---
:1940 Author Organization [facility] Address [address] [place] [address] Care Team Providers Name Role Phone Unavailable Primary Care Provider Unavailable Reason for Visit Outpatient (Routine) - Closed Specialty Diagnoses / Procedures Referred By Contact Refer red To Contact Urology Carmella Galindo P.A. -C., M.S. [address] [phone] Referral ID Status Reason Start Date Expiration Date Visits Requ ested Visits Authorized [id number] Closed 12/31/2020 12/31/2021 1 1 Encounter Details Date Type Department Care Team Description 03/23/2021 Office Visit Department of Urology [facility] B enign Prostatic Hyperplasia Hypertrophy With Obstruction (Primary Dx); [facility] Incomplete Bladder Emptying [address] [place] [phone] Social History Tobacco Use Types Packs/Day Years [...] 05/23/2022 relatives? How often do you attend sabianism or episcopal Never 05/23/2022 services? Do you belong to any clubs or organizations such as No 05/23/2022 sabianism groups, unions, fraternal or athletic groups, or [...] place to sleep or slept in a snf (including now)? Education Answer Date Recorded What is the highest level of school you have completed or 12 th grade 03/04/2019 the highest degree you have received? Sex Assigned at Date Recorded Male 04/08/2018 12:55 PM CDT documented as of this encounter Progress Notes Maco Mclean, TASHA, C.N.P. - 03/23/2021 1:00 PM CDT SUBJECTIVE REASON FOR CONSULT BPH Incomplete bladder emptying HISTORY OF PRESENT ILLNESS Mr. Merrill is a 80 y.o. gentleman who was last evaluated on 01/10/2021 for BPH symptoms. His primary symptoms are frequency, urgency, nocturia times 3 to 5, and slow stream. He has had symptoms for many years. Currently on finasteride and tamsulosin. He has elevated PVR. He would like to discuss optionsfor a procedure or surgery. Prostate size is 34 g. Cystoscopy visually obstructive with median lobe. PVR after Uro cough 470 cc.PVR in office today 230 cc. He has no history of retention or urinary tract infections. REVIEW OF SYSTEMS Patient rates his pain 0/10 on the pain scale. PHYSICAL EXAM General: Well-appearing, in no acute apparent distress. LABORATORY Lab Results Component Value Date CREATININE 1.46 (H) 12/24/2020 AST 25 02/12/2017 In office PVR: 230 cc ASSESSMENT / PLAN #1 BPH with obstruction #2 Incomplete bladder emptying Plan We discussed options for surgery including TURP, GreenLight, Rezum, and enucleation procedures. Given his strong bladder pressure on your cough, he could consider GreenLight or Rezum. We discussed avoiding anesthesia given his stroke risk. He could complete Rezum in the office as cystoscopy was tolerated well. After thorough discussion alongside Dr. Lacy??cody, patient wishes to proceed forward with Rezum in clinic. We will schedule this is next available. Urine culture within two weeks of procedure. Rezum Education morning of procedure. Anticipate catheter for five days. We discussed irritative symptoms after procedure. We discussed the risk of bleeding and infection. He will sign consent the morning of the procedure. RECOMMENDATIONS 1. Clinic Rezum at next available 2. Urine culture 10 to 14 days before procedure 3. Rezum Education morning of procedure documented in this encounter Plan of Treatment Not on filedocumented as of this encounter Visit Diagnoses Diagnosis Benign Prostatic Hyperplasia Hypertrophy With Obstruction - Primary Incomplete Bladder Emptying documented in this encounter Additional Health Concerns Assessment Noted Time PHQ-9 Depression Total Score: 1 02/08/2021 1:00 PM CDT documented as of this encounter
--- OUTSIDE RECORDS SUMMARY | 2022-06-04 18:09 | XMS_ITS | Encounter Summary ---
:1940 Author Organization [facility] Address [address] [place] [id number] Care Team Providers Name Role Phone Unavailable Primary Care Provider Unavailable Reason for Visit Reason Comments Annual Opioid RN visit Outpatient (Routine) - Closed Specialty Diagnoses / Procedures Referred By Contact Refer red To Contact Nephrology and Diagnoses Pain Hip B[facility] [address] [place] [phone] Referral ID Status Reason Start Date Expiration Date Visits Requ ested Visits Authorized [id number] Closed 01/25/2021 01/25/2022 1 1 Encounter Details Date Type Department Care Team Description 02/08/2021 Nurse Only Division of Nephrology Antelmo Reese M.D. [address] [place] [phone] Annual Opioid RN visit and Hypertension in Ange Leonard R.N. [address] [place] [phone] [place], [place] [address] [place] [phone] Social History Tobacco Use Types Packs/Day [...] How often do you attend gnosticist or faith Never 05/23/2022 services? Do you belong to [...] Sign Reading Time Taken Comments Blood Pressure 150/66 02/08/2021 1:22 PM CDT Pulse - - Temperature - - Respiratory Rate - - Oxygen Saturation - - Inhaled Oxygen Concentration - - Weight - - Height - - Body Mass Index - - documented in this encounter Progress Notes Ange Leonard, R.N. - 02/08/2021 1:00 PM CDT Provider: Dr. Reese Reason for Visit: Chronic opioid therapy Patient with a history of: chronic buttock pain Date of last visit: 03/03/2020 Requested medication and dosage: Tramadol 50 mg every six hours as needed Date of last renewal: 12/13/2020 Number of tablets remaining: unsure Average number of tablets per day: 3, takes one tablet three times daily Side effects: He has constipation but is not sure what is causing it. Uses laxative as needed for relief occasionally. Pain location and description: bilateral buttocks that is worse with sitting. Occasionally takes Tylenol during the day also. Current pain ratin Controlled substance agreement on file: yes. Opioid Assessment Scores: PEG Total Score: 1.67 (02/08/2021 1:00 PM) ORT Total Score (max 26): 6 (02/08/2021 1:00 PM) PHQ-9 Total Score (max 27): 1 (02/08/2021 1:00 PM) RUTH-7 Total Score (max 21): 1 (02/08/2021 1:00 PM) PDMP Reviewed: no Last Urine Toxicology Results: none PLAN Opioid Action Plan to be reviewed and updated by prescriber. The above information will be shared with the prescriber. Talked about using heat /ice for pain relief. He said he has tried that in the past and did not givesignificant pain relief. Ange Leonard R.N. - 02/08/2021 1:00 PM CDT Familia brought his A and D home blood pressure monitoring device to the visit today for accuracy test. The patient's home device uses a upper arm cuff location. The left arm was used for measurement. The results were there was at least one difference of greater than 5 mmHg but less than or equal to 10 mmHg and the comparison was repeated. The result of the second comparison was that the difference found in one or more comparison(s) remained >5 mmHg but less than or equal to 10 mmHg and the device is considered slightly inaccurate but doesn't require replacement. The manual blood pressure readings taken during the test were as follows: BP Readings from Last 1 Encounters: 02/08/21 1322 150/66 02/08/21 1320 159/73 02/08/21 1318 (!) 164/83 02/08/21 1316 146/66 02/08/21 1315 142/72 documented in this encounter Plan of Treatment Not on filedocumented as of this encounter Visit Diagnoses Diagnosis Pain Hip Bilateral documented in this encounter Additional Health Concerns Assessment Noted Time PHQ-9 Depression Total Score: 1 02/08/2021 1:00 PM CDT documented as of this encounter
--- OUTSIDE RECORDS SUMMARY | 2022-06-04 18:09 | XMS_ITS | Encounter Summary ---
:1940 Author Organization [facility] Address [address] [place] [address] Care Team Providers Name Role Phone Unavailable Primary Care Provider Unavailable Reason for Visit Reason Comments Med Refill Encounter Details Date Type Department Care Team Description 02/09/2021 Refill Division of Nephrology and Antelmo White M.D. Med Refill Hypertension in [address] [address] [place] [address] [place] [address] [phone] Social History Tobacco Use Types Packs/Day Years [...] 05/23/2022 relatives? How often do you attend scientology or rastafari Never 05/23/2022 services? Do you belong to any clubs or organizations such as No 05/23/2022 scientology groups, unions, fraternal or athletic groups, or [...]
--- OUTSIDE RECORDS SUMMARY | 2022-06-04 18:09 | XMS_ITS | Encounter Summary ---
:1940 Author Organization [facility] Address [address] [place] [address] Care Team Providers Name Role Phone Unavailable Primary Care Provider Unavailable Reason for Visit Reason Comments Appointment Encounter Details Date Type Department Care Team Description 06/07/2021 Clinical Communication Department of Urology Pee Banks, [place] M[place] [place] [address] [address] [facility] [address] [place] [address] [phone] Social History Tobacco Use Types Packs/Day Years [...] 05/23/2022 relatives? How often do you attend quaker or quaker Never 05/23/2022 services? Do you belong to any clubs or organizations such as No 05/23/2022 quaker groups, unions, fraternal or athletic groups, or [...] this encounter Miscellaneous Notes Telephone Encounter - Carmella Galindo P.A.-C., M.S. - 06/13/2021 8:13 AM AUGER PRESS OPERATOR OK to take a NEW or CONS slot if needed. Thanks! R PRESS OPERATOR Telephone Encounter - Erik Leahy - 06/13/2021 8:07 AM CST Still no dates available yet in August for Dr. Banks to see. Is there a date that we know that we can add on for the patient. They prefer not to drive at night, is there a mid-to late morning appt with Dr. Banks where we can do the urocuff beforehand? Thank you for checking! R PRESS OPERATOR Telephone Encounter - Carmella Galindo P.A.-C., M.S. - 06/07/2021 11:31 AM AUGER PRESS OPERATOR OK to book out to August if necessary. Thanks! KN R PRESS OPERATOR Telephone Encounter - Gail Jeffers - 06/07/2021 11:28 AM CST Patient of Dr. Banks. Patient if due for office visit and urocuff in July to follow up from April . Dr. Banks has no openings. Is there a time we can add on? Thank you! Best call back: [phone] R PRESS OPERATOR documented in this encounter Plan of Treatment Not on filedocumented as of this encounter Visit Diagnoses Not on filedocumented in this encounter Additional Health Concerns Assessment Noted Time PHQ-9 Depression Total Score: 1 02/08/2021 1:00 PM CDT documented as of this encounter
--- OUTSIDE RECORDS SUMMARY | 2022-06-04 18:09 | XMS_ITS | Encounter Summary ---
:1939 Author Organization [facility] Address [address] [place] [address] Care Team Providers Name Role Phone Unavailable Primary Care Provider Unavailable Reason for Visit Reason Comments Rezum Outpatient (Routine) - Closed Specialty Diagnoses / Procedures Referred By Contact Refer red To Contact Diagnoses Benign Prostatic Hyperplasia Hypertrophy With Obstruction [place] [facility] M.D., Procedures URO Rezum Treatment M.P.H. [address] [place] [address] Referral ID Status Reason Start Date Expiration Date Visits Requ ested Visits Authorized [id number] Closed 03/23/2021 03/23/2022 1 1 Encounter Details Date Type Department Care Team Description 05/11/2021 Procedure visit Department of Urology [place] ysfunction Sexual (Primary Dx); in [place] Parmar M.D., M.P.H. Benign Prostatic Hyperplasia Without Obs truction; [place] [address] [facility] Benign Prostatic Hyperplasia Hypertrophy With Obstruction [address] [place] [phone] Social History Tobacco Use Types Packs/Day Years [...] 05/23/2022 relatives? How often do you attend sikhism or mosque Never 05/23/2022 services? Do you belong to any clubs or organizations such as No 05/23/2022 sikhism groups, unions, fraternal or athletic groups, or [...] place to sleep or slept in a alf (including now)? Education Answer Date Recorded What is the highest level of school you have completed or 12 th grade 03/04/2019 the highest degree you have received? Sex Assigned at Date Recorded Male 04/08/2018 12:55 PM CDT documented as of this encounter Last Filed Vital Signs Vital Sign Reading Time Taken Comments Blood Pressure - - Pulse 60 05/11/2021 1:14 PM DISTRICT SUPERINTENDENT Temperature - - Respiratory Rate - - Oxygen Saturation 100% 05/11/2021 1:14 PM DISTRICT SUPERINTENDENT Inhaled Oxygen Concentration - - Weight - - Height - - Body Mass Index - - documented in this encounter Patient Instructions Patient InstructionsCee Wilks R.N. - 05/11/2021 12:30 PM CST [facility] Procedure Instructions You have successfully undergone the Paramjitm Prostate ablation procedure. The size of you prostate was approximately 34 grams (normal size 25-35 grams). You had a total of 4 steam treatments today. You can have your catheter removed on 05/16/21; an appointment has been scheduled for 10:30. Catheter Care: You may or may not have a catheter currently in place. Be sure to have a clear understanding of how to take care of and remove your catheter if you choose to remove it yourself. You may also choose to have your catheter removed in our clinic or elsewhere if you are uncomfortable. If you chose to go without a catheter today make sure you have adequate supplies and a good understanding of how to catheterize yourself if necessary (if you have not urinated for > 8 hours and start to feel like your bladder is very full). General: If you experience any fevers> 100.4, significant nausea/vomiting, significant worsening of pain, worsening blood in the urine (like dark red wine with clots), have a catheter that is no longer draining urine over several hours, or you are unable to catheterize please contact us at the number below.There are no specific lifting restrictions. How long will I need a catheter? Most men do not need an indwelling catheter (or need to self-catheterize) more than 24-72 hours. Theexception is if you have a very large prostate or if you were catheterizing or had a catheter in prior to the procedure - sometimes the catheter may need to stay in up to 4 weeks. Post procedure symptoms: Some men have no symptoms at all after this procedure. Others have pain in the head of the penis or from the catheter itself. You can use Tylenol as needed to address this discomfort. The most common symptoms experienced typically for about 2-6 weeks are: ??? Blood in the urine, robbi-aid colored (typically 3-5 days) ??? Burning with urination ??? Frequency ??? Urgency ??? Difficulty urinating ??? Urge incontinence (leakage because you cannot make it to the bathroom in time) Minimizing Post procedure symptoms: ??? If you were on medications for your prostate (like Flomax) before the procedure, continue these for at least 1 month after your procedure ??? Avoid bladder irritants: caffeine, alcohol, spicy foods - if you consume these your urgency and frequency will worsen ??? Void often - the more you let your bladder get too full, the more symptoms you will experience ??? If your symptoms are very severe, contact us and we may write for additional prescriptions Day of catheter removal: ??? When you return for catheter removal your bladder will be filled. Likely you will empty well. Asa precaution, you may be taught how to self-catheterize with a special catheter. When can I expect the best result? Because the steam treatment does not immediately remove prostate tissue, your stream may be weaker compared to before the procedure upon catheter removal. Most men are urinating much better at two weeks after the procedure. However, if your prostate is very large, it can take up to three months tosee the full benefit of the procedure. (A good rule of thumb is 1 week per treatment so 12 treatments = 3 months). FOLLOW UP: You will be scheduled to follow up for a symptom check and urine flow studies in 3 months. If you have any questions relating to your surgery you can contact Dr. Lacy??cody's service in the following ways: ??? Dr. Lacy??cody's departmental secretary, Lisa will create a message for their service and one of their team members will return your call during normal business hours. ??? To contact Dr. Banks's nurses call the Appointment office , they will leave a message with the nurses and the nurses will return your call during normal business hours. ??? After hours or with emergency concerns please call and ask to speak with the resident erosion control coordinator for Dr. Lacy??cody's Urology service. ??? If you have the patient portal please feel free to send a message about non- emergency concerns via online messaging. Your message will be responded to by a member of [facility] service including Hoang Mclean NP, Cheryle Dowell PA-C, and the Urology resident currently working with our staff Doctors. RICT SUPERINTENDENT documented in this encounter Progress Notes Lela Galan L.P.N. - 05/11/2021 12:30 PM CST Patient was seen for [facility] [[email or web address] Probe used: serial number [id number]).Lens number [id number] RICT SUPERINTENDENT Cee Wilks R.N. - 05/11/2021 12:30 PM CST Nitrous oxide was ordered per [place], and was utilized during the procedure. Nitrous was started at 1300 and discontinued at 1313. Patient was continuously monitored during nitrous oxide usage. Oxygen saturation range was 97- 100, RASS score was 0 during the duration of the procedure. No adverse effects noted. RICT SUPERINTENDENT documented in this encounter Procedure Notes [place] M.D., M.P.H. - 05/11/2021 12:30 PM CSTAssociated Order(s): URO Rezum Treatment Pre-Procedure Diagnose(s): Benign Prostatic Hyperplasia Hypertrophy With Obstruction Post-Procedure Diagnose(s): Benign Prostatic Hyperplasia Hypertrophy With Obstruction URO Rezum Treatment Date/Time: 05/11/2021 1:32 PM Performed by: [place] M.D., M.P.H. Authorized by: [place] M.D., M.P.H. PROCEDURE DETAILS Prostate Characteristics of the prostate include: hyperplasia - trilobar and median lobe present. Next the prostate was measured in 2 planes with a calculated prostate volume of 34. Anterior urethra: anterior urethra normal Posterior urethra: normal Bladder: bladder normal Steam Treatments After the patient had been prepped we inserted the resume device and navigated into the bladder. A total of 3 treatments were delivered. 2 into the lateral lobes and 1 into the median lobe.The scope was removed without difficulty. pedersen catheter present: coude 18 Qatari was placed without difficulty. CONSENT Consent obtained: written SEDATION / ANESTHESIA Anesthesia method: nerve block Nerve block type: lidocaine POST-PROCEDURE DETAILS: Patient tolerated procedure well, he rated his pain 0 out of 10. Procedure completed successfully. yes Complications: no apparent complications RICT SUPERINTENDENT documented in this encounter Plan of Treatment Scheduled Orders Name Type Priority Associated Diagnoses Order S chedule Nitrous Oxide Respiratory Care Routine Benign Prostatic Ordere d: 05/11/2021 Hyperplasia Without Obstruction documented as of this encounter Procedures Procedure Name Priority Date/Time Associated Diagnosis Comme nts URO REZUM TREATMENT Routine 05/11/2021 1:32 PM Benign Prostati c Results for this DISTRICT SUPERINTENDENT Hyperplasia procedure are i n Hypertrophy With the results Obstruction section. documented in this encounter Results URO Rezum Treatment (05/11/2021 1:32 PM DISTRICT SUPERINTENDENT) Specimen (Source) Anatomical Location Collection Method / Collectio n Time Received Time / Laterality Volume Narrative [place] M.D., M.P.H. - 021 1:32 PM DISTRICT SUPERINTENDENT [place] M.D., M.P.H. ? 05/11/2021 ??1:35 PM URO Rezum Treatment Date/Time: 05/11/2021 1:32 PM Performed by: [place] M.D., M. P.H. Authorized by: [place] M.D., M .P.H. PROCEDURE DETAILS Prostate Characteristics of the prostate include: hyperplasia - trilobar and median lobe present. ?? Next the prostate was m easured in 2 planes with a calculated prostate volume of 34. ??Ante rior urethra: anterior urethra normal ??Posterior urethra: normal ??Andrez dder: bladder normal Steam Treatments After the patient had been prepped we in serted the resume device and navigated into the bladder. A total of 3 treatments were delivered. 2 into the lateral lobes and 1 into the median lobe.The scope was removed without difficulty. ??pedersen catheter present: co ude 18 Qatari was placed without difficulty. CONSENT Consent obtained: written SEDATION / ANESTHESIA Anesthesia method: nerve block Nerve block type: lidocaine POST-PROCEDURE DETAILS: Patient tolerated procedure well, he rat ed his pain 0 out of 10. Procedure completed successfully. yes ?? Complications: no apparent complications [place] M.D., M.P.H. UROLOGY ORDERABLES documented in this encounter Visit Diagnoses Diagnosis Dysfunction Sexual - Primary Benign Prostatic Hyperplasia Without Obs truction Benign Prostatic Hyperplasia Hypertrophy With Obstruction documented in this encounter Administered Medications Inactive Administered Medications - up to 3 most recent administrations Medication Order MAR Action Action Date Dose Rate Site lidocaine 10 mg/mL (1 %) injection Given 05/11/2021 12:59 PM DISTRICT SUPERINTENDENT 20 mL 20 mL (XYLOCAINE) 20 mL, injection, Once, On Sun05/11/21 at 1230, For 1 dose lidocaine HCL 2 % topical jelly 2 Given 05/11/2021 12:47 PM DISTRICT SUPERINTENDENT 2 application application (UROJET) 2 application, urethral, Once, On Sun05/11/21 at 1230, For 1 dose lidocaine HCL 2 % topical jelly 2 Given 05/11/2021 12:48 PM DISTRICT SUPERINTENDENT 2 application application (UROJET) 2 application, rectal, Once, On Sun05/11/21 at 1230, For 1 dose documented in this encounter Additional Health Concerns Assessment Noted Time PHQ-9 Depression Total Score: 1 02/08/2021 1:00 PM CDT documented as of this encounter
--- OUTSIDE RECORDS SUMMARY | 2022-06-04 18:09 | XMS_ITS | Encounter Summary ---
:1939 Author Organization [facility] Address [address] [place] [address] Care Team Providers Name Role Phone Unavailable Primary Care Provider Unavailable Reason for Visit Reason Comments Med Refill Encounter Details Date Type Department Care Team Description 06/26/2021 Refill Division of Nephrology and Antelmo White M.D. Med Refill Hypertension in [address] [address] [place] [address] [place] [address] [phone] Social History Tobacco Use Types Packs/Day Years [...] 05/23/2022 relatives? How often do you attend hindu or alevism Never 05/23/2022 services? Do you belong to any clubs or organizations such as No 05/23/2022 hindu groups, unions, fraternal or athletic groups, or [...] of this encounter Visit Diagnoses Diagnosis Insomnia Pain Hip Bilateral Other Chronic Pain documented in this encounter Additional Health Concerns Assessment Noted Time PHQ-9 Depression Total Score: 1 02/08/2021 1:00 PM CDT documented as of this encounter
--- OUTSIDE RECORDS SUMMARY | 2022-06-04 18:09 | XMS_ITS | Encounter Summary ---
:1939 Author Organization [facility] Address [address] [place] [address] Care Team Providers Name Role Phone Unavailable Primary Care Provider Unavailable Reason for Referral Outpatient (Routine) - Closed Specialty Diagnoses / Procedures Referred By Contact Refer red To Contact Nephrology and Diagnoses Pain Hip B[facility] [address] [place] [address] Referral ID Status Reason Start Date Expiration Date Visits Requ ested Visits Authorized [id number] Closed 01/25/2021 01/25/2022 1 1 Scheduling Instructions Schedule on 02/08/2021 with any RN for ch ronic opioid visit Encounter Details Date Type Department Care Team Description 01/25/2021 Orders Only Division of Nephrology Angela Kimbrough Hip Bilateral and Hypertension in I., R.N. (Primary Dx) [place], [place] [address] [place] [address] [address] [place] [address] [phone] Social History Tobacco Use Types Packs/Day Years [...] 05/23/2022 relatives? How often do you attend synagogue or roman catholic Never 05/23/2022 services? Do you belong to any clubs or organizations such as No 05/23/2022 synagogue groups, unions, fraternal or athletic groups, or [...] Nephrology nurse Outpatient Referral Routine Pain Hip Bilatera l Expected: visit (clinic) 02/08/2021 (Approximate), Expires: 01/26/2024 documented as of this encounter Visit Diagnoses Diagnosis Pain Hip Bilateral - Primary documented in this encounter Additional Health Concerns Assessment Noted Time PHQ-9 Depression Total Score: 3 03/03/2020 8:00 AM CDT documented as of this encounter
--- OUTSIDE RECORDS SUMMARY | 2022-06-04 18:09 | XMS_ITS | Encounter Summary ---
:1939 Author Organization [facility] Address [address] [place] [address] Care Team Providers Name Role Phone Unavailable Primary Care Provider Unavailable Encounter Details Date Type Department Care Team Description 06/13/2021 Clinical Communication Department of Urology Pee Banks in Yaw Parmar, M.P.H. [address] [place] [address] [phone] Social History Tobacco Use Types Packs/Day Years [...] 05/23/2022 relatives? How often do you attend episcopal or adventism Never 05/23/2022 services? Do you belong to any clubs or organizations such as No 05/23/2022 episcopal groups, unions, fraternal or athletic groups, or [...]
--- OUTSIDE RECORDS SUMMARY | 2022-06-04 18:09 | XMS_ITS | Encounter Summary ---
:1939 Author Organization [facility] Address [address] [place] [address] Care Team Providers Name Role Phone Unavailable Primary Care Provider Unavailable Encounter Details Date Type Department Care Team Description 04/29/2021 Hospital Encounter Department of [place] Benign Prostatic Laboratory Medicine Yaw Mcfarland, M.P .H. Hyperplasia and Pathology, [address] [place] [address] Hypertrophy With [facility], in [place], [place] Obstruc tion [place], [place] [address] [place] [address] [place], [place] (Work) [phone] Social History Tobacco Use Types Packs/Day Years [...] How often do you attend spiritism or episcopalian Never 05/23/2022 services? Do you belong to [...] Hypertension Personal daily. History carvediloL (COREG) 12.5 Take 1 tablet (12.5 180 tablet 3 07/202012/29/2021 mg tabletIndications: mg total) by mouth 2 Hypertension Personal (two) times a day History with meals. finasteride (PROSCAR) 5 Take 1 tablet (5 mg 90 tablet 3 07/202012/29/2021 mg tabletIndications: total) by mouth Benign Prostatic daily. Hyperplasia Without Obstruction guaiFENesin (HUMIBID 3) 0 09/23/2020 0 01/27/2022 400 mg tablet losartan-hydroCHLOROthia Take 1 tablet by 90 tablet 3 12/2412/29/2021 zide (HYZAAR) 100-25 mg mouth every morning. per tabletIndications: Hypertension Personal History rosuvastatin (CRESTOR) Take 1 tablet (10 mg 90 tablet 3 07/202012/29/2021 10 mg tabletIndications: total) by mouth Coronary Artery Disease every evening. Without Angina Pectoris sertraline (ZOLOFT) 50 Take 1 tablet (50 mg 90 tablet 3 07/202012/29/2021 mg tabletIndications: total) by mouth Hypertension Essential daily. Primary tamsulosin (FLOMAX) 0.4 Take 1 capsule (0.4 90 capsule 3 07/202012/29/2021 mg 24 hr mg total) by mouth capsuleIndications: daily. Benign Prostatic Hyperplasia Without Obstruction traMADoL (ULTRAM) 50 mg Take 1 tablet (50 mg 270 tablet 0 06/30/2021 tabletIndications: total) by mouth Chronic Pain/Nonacute every 6 (six) hours Pain as needed for moderate pain or score 4-6 of 10 Indications: Chronic Pain/Nonacute Pain. for pain zolpidem (AMBIEN) 10 mg TAKE ONE TABLET BY 90 tablet 0 09/0 09/202007/01/2021 tabletIndications: MOUTH ONE TIME DAILY Insomnia AT BEDTIME documented as of this encounter Plan of Treatment Not on filedocumented as of this encounter Procedures Procedure Name Priority Date/Time Associated Diagnosis Comme nts BACTERIAL CULTURE, Routine 04/29/2021 10:04 AM Benign Prostati c Results for this AEROBIC + SUSC, CDT Hyperplasia procedure ar e in URINE Hypertrophy With the results Obstruction section. documented in this encounter Results Bacterial Culture, Aerobic + Susc, Urine (04/29/2021 10:04 AM CDT) Component Value Ref Test Analysis Performed At Patholo gist Range Method Time Signature Urine Organism present <10,000 cfu/mL, susceptibilities not 04/30/2021 DTL Culture performed per laboratory criteria. 8:11 AM CDT Specimen Anatomical Collection Method Collection Time Receive d Time (Source) Location / / Volume Laterality Urine (Urine, 04/29/2021 10:04 04/29/2021 Midstream) AM CDT 11:08 AM CDT Comment: Specimen Source Site: Urine [place] M.D., M.P.H. LAB MICROBIOLOGY - GENERA L ORDERABLES Performing Organization Address City/State/ZIP Code Phon e Number [facility] - [address] [place], [place] [address] [facility] [place] [address] Laboratories-[facility] [address] documented in this encounter Visit Diagnoses Diagnosis Benign Prostatic Hyperplasia Hypertrophy With Obstruction documented in this encounter Additional Health Concerns Assessment Noted Time PHQ-9 Depression Total Score: 1 02/08/2021 1:00 PM CDT documented as of this encounter
--- OUTSIDE RECORDS SUMMARY | 2022-06-04 18:09 | XMS_ITS | Encounter Summary ---
:1940 Author Organization [facility] Address [address] [place] [address] Care Team Providers Name Role Phone Unavailable Primary Care Provider Unavailable Encounter Details Date Type Department Care Team Description 12/24/2020 Hospital Encounter Department of Antelmo Reese Prostatic Laboratory Medicine R, [place] Hyperplasia Without and Pathology, [address] [place] [phone] [place] [address] [place], [place] (Work) [phone] Social History Tobacco Use Types Packs/Day Years [...] How often do you attend rastafarian or hoahaoism Never 05/23/2022 services? Do you belong to [...] 1 tablet (50 mg 270 tablet 0 02/21/2021 tabletIndications: total) by mouth Chronic Pain/Nonacute every 6 (six) hours Pain as needed for pain Indications: Chronic Pain/Nonacute Pain. zolpidem (AMBIEN) 10 mg TAKE 1 TABLET BY 90 tablet 0 202002/26/2021 tabletIndications: MOUTH ONCE DAILY AT Insomnia BEDTIME. documented as of this encounter Plan of Treatment Not on filedocumented as of this encounter Procedures Procedure Name Priority Date/Time Associated Diagnosis Comme nts BACTERIAL CULTURE, Routine 12/24/2020 4:22 PM Benign Prostatic Results for this AEROBIC + SUSC, CDT Hyperplasia Without proce dure are in URINE Obstruction the results section. documented in this encounter Results Bacterial Culture, Aerobic + Susc, Urine (12/24/2020 4:22 PM CDT) Component Value Ref Test Analysis Performed At [facility] Range Method Time Signature Urine Organism present <10,000 cfu/mL, susceptibilities not 12/26/2020 DTL Culture performed per laboratory criteria. 6:28 AM CDT Specimen Anatomical Collection Method Collection Time Receive d Time (Source) Location / / Volume Laterality Urine (Urine, 12/24/2020 4:22 PM 12/25/19 7:55 Midstream) CDT PM CDT Comment: Specimen Source Site: Urine Antelmo Reese M.D. LAB MICROBIOLOGY - GENERAL O RDERABLES Performing Organization Address City/State/ZIP Code Phon e Number [facility] - [address] [place], [place] [address] [address] [place] [address] [facility] [address] documented in this encounter Visit Diagnoses Diagnosis Benign Prostatic Hyperplasia Without Obs truction documented in this encounter Additional Health Concerns Assessment Noted Time PHQ-9 Depression Total Score: 3 03/03/2020 8:00 AM CDT documented as of this encounter
--- OUTSIDE RECORDS SUMMARY | 2022-06-04 18:09 | XMS_ITS | Encounter Summary ---
:1940 Author Organization [facility] Address [address] [place] [address] Care Team Providers Name Role Phone Unavailable Primary Care Provider Unavailable Reason for Visit Reason Comments Benign Prostatic Hypertrophy Urocuff. Outpatient (Routine) - Closed Specialty Diagnoses / Procedures Referred By Contact Refer red To Contact Diagnoses Benign Prostatic Hyperplasia Hypertrophy With Obstruction Milton Banks M.D., [facility] Procedures URO [facility] [address] [place] [phone] Referral ID Status Reason Start Date Expiration Date Visits Requ ested Visits Authorized [id number] Closed 05/11/2021 05/11/2022 1 1 Encounter Details Date Type Department Care Team Description 09/27/2021 Procedure visit Department of Urology Abiel Banks M.D., [facility] [address] [place] [phone] Benign Prostatic in [place], Kierra Masterson, R.N. [address] [place] [phone] Hyperplasia [place] Hypertrophy With [address] [facility] [place] [place] [phone] Social History Tobacco Use Types Packs/Day Years [...] How often do you attend muslim or restorationist Never 05/23/2022 services? Do you belong to [...] documented as of this encounter Progress Notes Kierra Masterson, RChristianN. - 09/27/2021 1:00 PM CDT COMPLEX UROFLOW PERFORMED VIA CALIBRATED ELECTRONIC EQUIPMENT USING [id number] CUFF TEST. CHIEF COMPLAINT Patient presents for a Urocuff test with ultrasound residual ordered by Dr. Milton Banks CLINICAL BACKGROUND Patient presents with LUTS symptoms common to men suffering from benign prostate hyperplasia, including but not limited to Elevated Post Void Residual Procedure: The UroCuff Test is a Natural Fill Voiding Pressure Study performed on the [id number] Complete Urodynamics instrument. The AUA BPH Clinical Practice Guidelines recommend that a Voiding Pressure Study should be considered when diagnostic uncertainty exists. The patient's bladder was filled naturally and the test began when the patient reported a strong desire to void. The patient was fitted with a small, pneumatic penile cuff was utilized. The patient was instructed to void naturally onto a precise scalewhich measures urine flow rate and total voided volume. The urodynamics instrument applied a series of linear inflations and deflations to the pneumatic penile cuff and recorded the effects on urine flow rate. The penile cuff pressure required to interrupt flow represents the bladder pressure at the time of interruption. This inflation/deflation cycle was repeated until voiding was complete. To interpret the test, the maximum flow (Qmax) and highest pressure at flow interruption (PCuffInt) are plotted on a specially constructed nomogram shown below which is based on the ICS nomogram. REPORT The patient provided verbal consent. UroCuff test was completed: Patient had a 8/10 desire on the 1-10 urge scale. Patient had a 0/10 reported level of pain from the procedure. Total voided volume 1.8 ml Peak (max) flow 0.0 ml/sec Cuff interruption pressure 0.0 cm of H2O Ultrasound residual urine 525 ml Images: Inserted into chart Test Indication: 1. retention 2. BPH with obstructive symptoms 3. Feeling of Incomplete Emptying IMPRESSION: Elevated PVR No charge urocuff - pvr only, patient unable to void Electronically signed by: Milton Banks M.D., M.P.H. 10/06/21 2:34 PM CDT documented in this encounter Miscellaneous Notes Addendum Note - Kierra Masterson, R.N. - 09/27/2021 1:00 PM CDT Addended by: KIERRA MASTERSON on: 09/28/2021 10:04 AM Modules accepted: Level of Service documented in this encounter Plan of Treatment Not on filedocumented as of this encounter Visit Diagnoses Diagnosis Benign Prostatic Hyperplasia Hypertrophy With Obstruction documented in this encounter Additional Health Concerns Assessment Noted Time PHQ-9 Depression Total Score: 1 02/08/2021 1:00 PM CDT documented as of this encounter
--- OUTSIDE RECORDS SUMMARY | 2022-06-04 18:09 | XMS_ITS | Encounter Summary ---
:[address] [facility] Address [address] [place] [address] Care Team Providers Name Role Phone Unavailable Primary Care Provider Unavailable Encounter Details Date Type Department Care Team Description 03/23/2021 Ancillary Procedure Department of Urology Social History Tobacco Use Types Packs/Day Years [...] How often do you attend christian or confucianist Never 05/23/2022 services? Do you belong to [...] to sleep or slept in a senior living (including now)? Education Answer Date Recorded What is the highest level of school you have completed or 12 th grade 03/04/2019 the highest degree you have received? Sex Assigned at Date Recorded Male 04/08/2018 12:55 PM CDT documented as of this encounter Plan of Treatment Not on filedocumented as of this encounter Procedures Procedure Name Priority Date/Time Associated Diagnosis Comme nts UROLOGY IMAGE EXAM Routine 03/23/2021 9:21 AM Res ults for this CDT procedure are i n the results section. documented in this encounter Results Non-Radiology Image-Urology Image Exam (03/23/2021 9:21 AM CDT) Specimen (Source) Anatomical Collection Method Collection Time Re ceived Time Location / / Volume Laterality 03/23/2021 9:51 AM CDT Narrative [facility] - 03/23/2021 9:21 AM CDT This order has been created and [...]
--- OUTSIDE RECORDS SUMMARY | 2022-06-04 18:09 | XMS_ITS | Encounter Summary ---
:1940 Author Organization [facility] Address [address] [place] [address] Care Team Providers Name Role Phone Unavailable Primary Care Provider Unavailable Reason for Referral Outpatient (Routine) - Closed Specialty Diagnoses / Procedures Referred By Contact Refer red To Contact Urology Carmella Galindo P.A. -C., M.S. [facility] 200 [place] [phone] Referral ID Status Reason Start Date Expiration Date Visits Requ ested Visits Authorized [id number] Closed 12/31/2020 12/31/2021 1 1 Outpatient (Routine) - Closed Specialty Diagnoses / Procedures Referred By Contact Refer red To Contact Diagnoses Benign Prostatic Hyperplasia Without Obstruction Carmella Galindo P.A.-C., [facility] Procedures URO Prostate M.S. 200 [place] [phone] Referral ID Status Reason Start Date Expiration Date Visits Requ ested Visits Authorized [id number] Closed 12/31/2020 12/31/2021 1 1 Outpatient (Routine) - Closed Specialty Diagnoses / Procedures Referred By Contact Refer red To Contact Diagnoses Benign Prostatic Hyperplasia Without Obstruction Carmella Galindo P.A.-C., [facility] Procedures URO Cystoscopy (general) M.S. [address] [place] [phone] Referral ID Status Reason Start Date Expiration Date Visits Requ ested Visits Authorized [id number] Closed 12/31/2020 12/31/2021 1 1 Outpatient (Routine) - Closed Specialty Diagnoses / Procedures Referred By Contact Refer red To Contact Diagnoses Benign Prostatic Hyperplasia Without Obstruction Carmella Galindo P.A.-C., [facility] Procedures URO Urocuff M.S. [address] [place] [phone] Referral ID Status Reason Start Date Expiration Date Visits Requ ested Visits Authorized [id number] Closed 12/31/2020 12/31/2021 1 1 Reason for Visit Outpatient (Routine) - Closed Specialty Diagnoses / Procedures Referred By Contact Refer red To Contact Urology Diagnoses Benign Prostatic Hyperplasia Without Obstruction Antelmo Reese M.D. [facility] [address] [place] [phone] Referral ID Status Reason Start Date Expiration Date Visits Requ ested Visits Authorized [id number] Closed 12/24/2020 12/24/2021 1 1 Encounter Details Date Type Department Care Team Description 12/31/2020 Comprehensive Visit Department of Joce Mclean APRN, C.N.P. [address] [place] [phone] Benign Prostatic Urology in Carmella Galindo P.A.-C., M.S. [address] [place] [phone] Hyperplasia Without [place], Obstruction [place] (Primary Dx) [address] [place] [phone] Social History Tobacco Use Types Packs/Day Years [...] 05/23/2022 relatives? How often do you attend gnosticism or gnosticism Never 05/23/2022 services? Do you belong to any clubs or organizations such as No 05/23/2022 gnosticism groups, unions, fraternal or athletic groups, or [...] PM CDT documented as of this encounter H&P Notes Carmella Galindo PChristianA.-C., M.S. - 12/31/2020 10:30 AM CDT SUBJECTIVE REQUESTING PROVIDER Antelmo Reese M.D. CHIEF COMPLAINT BPH HISTORY OF PRESENT ILLNESS Mr. Merrill is a very pleasant 80 y.o. gentleman who presents for further evaluation and management oflower urinary tract symptoms. The patient describes both obstructive and irritative urinary symptoms. He describes a weakened urinary stream. He often finds the need to double void. He endorses urinary frequency, as well as urinaryurgency. He denies urinary incontinence. He admits to 3 episodes of nocturia per night. He denies gross hematuria, dysuria, or history of urinary tract infections. He denies history of kidney or bladder stones. He has been on daily finasteride and tamsulosin for BPH for several years. Unfortunately, he is fairly bothered by side effects that he attributes to these medications. The patient primarily drinks water, with some coffee. He takes daily MiraLax to keep his bowels regular. PAST MEDICAL HISTORY Past Medical History: Diagnosis Date ??? Hypertension NOS ??? Polyp Colon ??? Stroke (HCC) 2001, 2014 PAST SURGICAL HISTORY Past Surgical History: Procedure Laterality Date ??? BIOPSY Right 01/06/2005 >Shave Biopsy (lesion of unknown origin, right hindu). ??? HIP ARTHROPLASTY Left 09/09/2013 >Left total hip arthroplasty. ??? OTHER SURGICAL HISTORY N/A 09/30/2014 >Reveal LINQ implantation. ??? PHACOEMULSIFICATION CATARACT WITH INTRAOCULAR LENS IMPLANTATION Right 03/31/2011 >Phacoemulsification with insertion of intraocular lens prosthesis, right eye, with review of intraocular power ??? PHACOEMULSIFICATION CATARACT WITH INTRAOCULAR LENS IMPLANTATION Left 03/25/2010 Phacoemulsification with insertion of intraocular lens prosthesis, left eye, with review of intraocular power calculation. SOCIAL HISTORY Social History Socioeconomic History ??? Marital status: Spouse name: Not on file ??? Number of children: Not on file ??? Years of education: Not on file ??? Highest education level: 12th grade Occupational History ??? Not on file Tobacco Use ??? Smoking status: Former Smoker Packs/day: 0.00 Quit date: 2005 Years since quittin.5 ??? Smokeless tobacco: Never Used Substance and Sexual Activity ??? Alcohol use: No Comment: none since 2004 ??? Drug use: No ??? Sexual activity: Defer Other Topics Concern ??? Not on file Social History Narrative 12/2020: He lives in [place], [place]. His is Roseann Former smoker. 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 Difficulty of Paying Living Expenses: Not hard at all Food Insecurity: No Food Insecurity ??? Worried About Running Out of Food in the Last Year: Never true ??? Ran Out of Food in the Last Year: Never true Transportation Needs: No Transportation Needs ??? Lack of Transportation (Medical): No ??? Lack of Transportation (Non-Medical): No Physical Activity: Sufficiently Active ??? Days of Exercise per Week: 5 days ??? Minutes of Exercise per Session: 30 min Stress: Stress Concern Present ??? Feeling of Stress : To some extent Social Connections: Moderately Isolated ??? Frequency of Communication with Friends and Family: Twice a week ??? Frequency of Social Gatherings with Friends and Family: Once a week ??? Attends Restoration Services: Never ??? Active Member of Clubs or Organizations: Not on file ??? Attends Club or Organization Meetings: Never ??? Marital Status: Intimate Partner Violence: ??? Fear of Current or Ex-Partner: ??? Emotionally Abused: ??? Physically Abused: ??? Sexually Abused: ALLERGIES No Known Allergies MEDICATIONS Current Outpatient Medications: ??? zolpidem (AMBIEN) 10 mg tablet, TAKE 1 TABLET BY MOUTH ONCE DAILY AT BEDTIME., Disp: 90 tablet, Rfl: 0 ??? acetaminophen (TYLENOL EXTRA STRENGTH) 500 mg tablet, Take 1-2 tablets by mouth 3 (three) times a day as needed. pain, Disp: , Rfl: ??? amLODIPine (NORVASC) 2.5 mg tablet, Take 1 tablet (2.5 mg total) by mouth daily., Disp: 90 tablet, Rfl: 3 ??? aspirin 325 mg tablet, Take 1 tablet by mouth daily., Disp: , Rfl: ??? carvediloL (COREG) 12.5 mg tablet, Take 1 tablet (12.5 mg total) by mouth 2 (two) times a day with meals., Disp: 180 tablet, Rfl: 3 ??? finasteride (PROSCAR) 5 mg tablet, Take 1 tablet (5 mg total) by mouth daily., Disp: 90 tablet, Rfl: 3 ??? lanolin/mineral oil/petrolatum (ARTIFICIAL TEARS OPHT), Administer 1 drop into affected eye(s) as needed. As needed (both eyes)., Disp: , Rfl: ??? loratadine (CLARITIN) 10 mg tablet, Take 10 mg by mouth daily., Disp: , Rfl: ??? losartan-hydroCHLOROthiazide (HYZAAR) 100-25 mg per tablet, Take 1 tablet by mouth every morning., Disp: 90 tablet, Rfl: 3 ??? nitroglycerin (NITROSTAT) 0.4 mg SL tablet, Place 1 tablet (0.4 mg total) under the tongue every5 (five) minutes as needed for chest pain. Place 1 tab under the tongue at first sign of chest pain.If no relief in 5 min, call 911. Repeat dose every 5 min up to 2 additional doses if chest pain continues., Disp: 25 tablet, Rfl: 11 ??? POLYETHYLENE GLYCOL 3350 ORAL, Take 1 g by mouth daily. MiraLAX powder, Disp: , Rfl: ??? rosuvastatin (CRESTOR) 10 mg tablet, Take 1 tablet (10 mg total) by mouth every evening., Disp: 90 tablet, Rfl: 3 ??? sertraline (ZOLOFT) 50 mg tablet, Take 1 tablet (50 mg total) by mouth daily., Disp: 90 tablet, Rfl: 3 ??? tamsulosin (FLOMAX) 0.4 mg 24 hr capsule, Take 1 capsule (0.4 mg total) by mouth daily., Disp: 90 capsule, Rfl: 3 ??? traMADoL (ULTRAM) 50 mg tablet, Take 1 tablet (50 mg total) by mouth every 6 (six) hours as needed for pain Indications: Chronic Pain/Nonacute Pain., Disp: 270 tablet, Rfl: 0 Current Facility-Administered Medications: ??? lidocaine-EPINEPHrine 1%-1:200,000 injection 2-50 mL (XYLOCAINE W/EPI), 2-50 mL, injection, PRN,Alex Tolliver M.D., 6 mL at 06/27/18 1350 REVIEW OF SYSTEMS Genitourinary: Positive for urgency and frequent urination. Negative for incontinence, pain with urination and hematuria. OBJECTIVE PHYSICAL EXAM Constitutional: He is oriented to person, place, and time. He appears well-developed. HENT: Head: Normocephalic. Eyes: No scleral icterus. Pulmonary/Chest: Effort normal. Musculoskeletal: Normal gait noted with ambulation Neurological: He is alert and oriented to person, place, and time. Skin: No pallor. Psychiatric: He has a normal mood and affect. His behavior is normal. Judgment and thought content normal. LABS PSA: 0.74 Urinalysis: Normal Urine microscopy: Normal Creatinine: 1.46, stable Uroflow: 12/31/20 Peak flow: 7.2 mL/sec Average flow: 2.2 mL/sec Voided volume: 257 mL PVR: 152 mL ASSESSMENT / PLAN #1 Lower urinary tract symptoms #2 BPH #3 History of stroke #4 Atrial fibrillation It was my pleasure to meet with Mr. Merrill in clinic today. He describes both obstructive and irritative voiding symptoms. He has a history of BPH, and has taken daily finasteride and tamsulosin for many years. Unfortunately, he is bothered by side effects thathe attributes to these medications, and would like to consider surgical intervention. We reviewed the patient's lab work. Urinalysis and urine microscopy were both normal. Creatinine is stable at 1.46. Uroflow demonstrated a decreased flow, and an elevated PVR of 152 mL. My preference would have been to initiate daily Cialis 5 mg for urinary symptoms. The patient does have a history of having to utilize nitroglycerin, which would make this medication contraindicated. He is not interested in increasing his tamsulosin dosing due to side effects. We discussed behavioral modifications to improve urinary symptoms. We discussed various bladder outlet procedure techniques, as well as associated risks. At this time, the patient seems most interestedin PVP, and would like to speak to a surgeon about this further. Sexual function preservation is notof great importance to this patient. Prior to this consultation, we will proceed with cystoscopy, UroCuff, and prostate sizing. The patient does take full dose aspirin daily, but denies the use of any other blood thinners. All questions were answered. The patient was encouraged to contact our service should further questions arise. Signed by: Carmella Galindo P.A.-C., M.S. 12/31/2020 11:02 AM CDT Answers for HPI/ROS submitted by the patient on 12/28/2020 Frequent urination (more than what you would consider normal): Yes Sensation that your bladder is not completely emptying after urinating: Yes Weak/poor urine stream: Yes None of the above: Yes Are you able to sense when your bladder is full?: Yes How many times daily do you typically urinate during the day?: 15 How many times do you typically wake up and urinate at night?: 4 Have you had a urinary tract infection (UTI) within the past 1 year, and if so how many?: not applicable Have you had any kidney infections or required hospitalized for kidney failure?: No Have you required a catheter placed because you could not empty your bladder?: No Do you ever unintentionally leak urine?: Yes Have you ever or are currently taking any treatments to treat your urinary symptoms?: none Have you ever had any surgical or office procedures to improve your urinary symptoms?: No Do you leak when you cough, sneeze, or lift heavy objects?: No Do you often experience a feeling of urgency (needing to go the bathroom) before leaking?: Yes documented in this encounter Plan of Treatment Scheduled Orders Name Type Priority Associated Diagnoses Order S chedule URO Urocuff Procedure Routine Benign Prostatic Expected: 0 12/31/2020 Hyperplasia Without (Approxi mate), Expires: Obstruction 01/01/2024 Scheduled Referrals Name Type Priority Associated Diagnoses Order S chedule Urology office Outpatient Referral Routine Expect ed: visit (clinic) 12/31/2020 (Approximate), Expires: 01/01/2024 documented as of this encounter Results WI US TRANSRECTAL (03/23/2021 9:21 AM CDT) Specimen (Source) Anatomical Location Collection Method / Collectio n Time Received Time / Laterality Volume Narrative Morelia Manriquez M.D. - 03/23/2021 9:21 AM CDT Morelia Manriquez M.D. ? 03/24/2021 ??7:52 PM URO Prostate US Date/Time: 03/23/2021 9:21 AM Performed by: Morelia Manriquez M.D. Authorized by: Carmella Galindo P.Shelly.-Tita., M.S. IMPRESSIONS ??Normal prostate ultrasound PROCEDURE DETAILS: Patient was placed in the right-lateral decubuitus position. Length (mm): 46 Height (mm): 30 Width (mm): 47 Ellipsoid volume: 33.96 Bullet volume: 42.45 Prominent lesion volume: 64.86 Prostate: intravesical protrusion of med cindy lobe Ultrasound image captured: yes ELVIS demonstrated no evidence of nodules or induration. ??Intravesicular protrusion of prostatic median lobe evid ent on ultrasound. CONSENT Consent obtained: verbal Consent given by: patient The benefits, risks and alternatives to the procedure and the potential need for sedation or anesthesia as well as the names, roles, and responsibilities of healthcare team memb ers performing significant interventional tasks were discussed with the patient and/or decision maker. UNIVERSAL PROTOCOL All relevant documentation and testing w ere reviewed and available. All required blood products, implants, devic es and or special equipment were made available as applicable. Pre-proced ure verification was conducted and the correct site was marked if required. A fire risk assessment was done as applicable. The procedural time-out w as conducted prior to performing the procedure and confirmed in a procedu ral pause. PRE PROCEDURE DETAILS Indications: BPH SEDATION / ANESTHESIA Anesthesia method: none Carmella Galindo P.A.-C., M.S. UROLOGY ORDERABLES WI CYSTOURETHROSCOPY (03/23/2021 8:30 AM CDT) Specimen (Source) Anatomical Location Collection Method / Collectio n Time Received Time / Laterality Volume Narrative Morelia Manriquez M.D. - 03/23/2021 8:30 AM CDT Morelia Manriquez M.D. ? 03/23/2021 ??8:33 AM URO Cystoscopy (general) Date/Time: 03/23/2021 8:30 AM Performed by: Morelia Manriquez M.D. Authorized by: Carmella Galindo P.A.-C., M.S. IMPRESSION ?? BPH Additional procedures performed: cystosc opy ?? PROCEDURE DETAILS HISTORY OF PRESENT ILLNESS Mr. Merrill is an 80-year-old male who pr esents for BPH evaluation with cystoscopy and trans rectal ultrasound o f the prostate. PROCEDURE The patient was brought to cystoscopy [facility] and placed in lithotomy position. Patient was prepped and draped in the standard fashion. A flexible cystoscope was inserted through the urethra and into the bladder. Prosthetic urethra was obstructive in n ature and demonstrated trilobar hypertrophy with kissing lateral lobes a nd a protruding median lobe. Urethroscopy demonstrated normal appeari ng urethra mucosa. Bladder was entered and inspected. No erythematous o r papillary bladder lesions were noted. ??There was evidence of moderate trabeculation with intermittent cellules across the posterior bladder wa ll. ??The ureteral orifices were identified in their orthotopic position bilaterally. Retroflex view demonstrated intravesicular protrusion o f a prostatic median lobe. ??There was a mild amount of bleeding identified at the median lobe. ??Cystoscope was removed and patient tolerated the pr ocedure well. DIANOSIS: Trilobar BPH with evidence of obstructio n PLAN: Follow-up later today with transrectal u ltrasound and office evaluation CONSENT Consent obtained: verbal Consent given by: patient The benefits, risks and alternatives to the procedure and the potential need for sedation or anesthesia as well as the names, roles, and responsibilities of healthcare team memb ers performing significant interventional tasks were discussed with the patient and/or decision maker. UNIVERSAL PROTOCOL All relevant documentation and testing w ere reviewed and available. All required blood products, implants, devic es and or special equipment were made available as applicable. Pre-proced ure verification was conducted and the correct site was marked if required. A fire risk assessment was done as applicable. The procedural time-out w as conducted prior to performing the procedure and confirmed in a procedu ral pause. PRE-PROCEDURE DETAILS Procedure purpose: ??Diagnostic Indications: ??BPH evaluation Appropriate hand hygiene, gown, cap, mas k, protective eyewear, sterile gloves, skin preparation, sterile drape, and strict aseptic technique were utilized as applicable for the procedure .: yes ?? Site preparation: ??Povidone-iodine SEDATION / ANESTHESIA Anesthesia method: none POST-PROCEDURE DETAILS Procedure completed successfully: yes ?? Complications: no apparent complications ?? Carmella Galindo P.A.-C., M.S. UROLOGY ORDERABLES documented in this encounter Visit Diagnoses Diagnosis Benign Prostatic Hyperplasia Without Obs truction - Primary Benign Prostatic Hyperplasia Without Obs truction Benign Prostatic Hyperplasia Without Obs truction documented in this encounter Additional Health Concerns Assessment Noted Time PHQ-9 Depression Total Score: 3 03/03/2020 8:00 AM CDT documented as of this encounter
--- OUTSIDE RECORDS SUMMARY | 2022-06-04 18:09 | XMS_ITS | Encounter Summary ---
:1940 Author Organization [facility] Address [address] [place] [phone] Care Team Providers Name Role Phone Unavailable Primary Care Provider Unavailable Encounter Details Date Type Department Care Team Description 12/31/2020 Clinical Communication Department of Urology Bambi Galindo, in [facility] vaughn Murguia, M.S. 200 [facility] [address] [place] [phone] Social History Tobacco Use Types Packs/Day Years [...] How often do you attend latter-day or jainism Never 05/23/2022 services? Do you belong to [...] this encounter Miscellaneous Notes Telephone Encounter - Gail Jeffers - 01/03/2021 10:48 AM CDT Patient is scheduled and aware. Resolved documented in this encounter Plan of Treatment Not on filedocumented as of this encounter Visit Diagnoses Not on filedocumented in this encounter Additional Health Concerns Assessment Noted Time PHQ-9 Depression Total Score: 3 03/03/2020 8:00 AM CDT documented as of this encounter
--- OUTSIDE RECORDS SUMMARY | 2022-06-04 18:09 | XMS_ITS | Encounter Summary ---
:1940 Author Organization [facility] Address [address] [place] [phone] Care Team Providers Name Role Phone Unavailable Primary Care Provider Unavailable Reason for Visit Reason Comments Med Refill Encounter Details Date Type Department Care Team Description 02/22/2021 Refill Division of Nephrology and Antelmo White M.D. Med Refill Hypertension in [address] [phone] [place] [address] [place] [phone] Social History Tobacco Use Types Packs/Day Years [...] 05/23/2022 relatives? How often do you attend congregation or anabaptism Never 05/23/2022 services? Do you belong to any clubs or organizations such as No 05/23/2022 congregation groups, unions, fraternal or athletic groups, or [...]
--- OUTSIDE RECORDS SUMMARY | 2022-06-04 18:09 | XMS_ITS | Encounter Summary ---
:1940 Author Organization [facility] Address [address] [place] [address] Care Team Providers Name Role Phone Unavailable Primary Care Provider Unavailable Reason for Visit Physical Therapy (Routine) - Canceled Specialty Diagnoses / Procedures Referred By Contact Refer red To Contact Diagnoses Bursitis Trochanteric Right Sita Ralph M.D. [facility] Procedures PT Ongoing treatment [address] [place] [id number] Referral ID Status Reason Start Date Expiration Date Visits V isits Requested Authorized [id number] Canceled 01/19/2021 01/19/2022 99 99 Encounter Details Date Type Department Care Team Description 02/08/2021 Clinical Support Department of Physical Sita Ralph M.D. [address] [place] [id number] Bursitis Medicine and Nicolette Reddy P.T., D.P.T. [address] [place] [phone] Trochanteric Right Rehabilitation in (Primary D x) [place], [place] [address] [place] [phone] Social History Tobacco Use Types Packs/Day Years [...] 05/23/2022 relatives? How often do you attend religion or christianity Never 05/23/2022 services? Do you belong to any clubs or organizations such as No 05/23/2022 religion groups, unions, fraternal or athletic groups, or [...] documented as of this encounter Progress Notes Nicolette Reddy P.T., D.P.T. - 02/08/2021 11:00 AM CDT Physical Therapy Musculoskeletal Outpatient Progress Note SUBJECTIVE Patient's Name: Familia Merrill Referring Provider: Sita Ralph M.D. Medical Diagnosis: 1. Bursitis Trochanteric Right Reason for Referral: Right hip pain Payor: MEDICA / Plan: [employer] COST SHARE / Product Type: Cost Share / Epic Visit Count: 2 Family/Caregiver Present: No Patient goals:Less pain with sitting Patient comments: Patient reports that he can sit for about 3 hours before his hip begins to bother.He also continues to have pain if he lies on his right side. His exercises have been going well. Fall in the last 12 months: Yes Are you fearful of falling?: No OBJECTIVE TREATMENT Treatment today consisted of: Therapeutic Exercise: Reviewed home exercise program and made modifications as described. Verbal and tactile cues were provided for appropriate form with all exercises. New or progressed exercises are in bold. Access Code: [email or web address] URL: [email or web address] Date: 01/19/2021 Prepared by: Nicolette Reddy ?? Exercises Alternating Single Leg Bridge - 4 x weekly - 10 sets - 4 reps Clamshell - 4 x weekly - 20 reps - 3 seconds hold Sidelying Hip Abduction - 4 x weekly - 20 reps Alternating Single Leg Balance - Foot in Front - 1 x daily - 20 reps - 3 hold Home Exercise Program/Education: Reviewed previously instructed exercises for technique. New exercises, progressions and needed changes to exercises are detailed above. Patient was provided verbal cueing and physical cueing for proper independent completion of exercises by end of session. The following patient education materials were provided today: [employer]: Paper copy provided to patient Contact monitoring: PPE used during therapy: Therapist was wearing the following PPE throughout entire session: surgicalmask and eye protection Patient was wearing a mask during therapy session: yes Assessment Clinical Impression: At initial evaluation patient presented with signs and symptoms consistent with right greater trochanteric pain syndrome. Familia Merrill tolerated today's session well. He was able to tolerate progression of the home exercise program with no acute distress. However, continues to demonstrate impairment with sitting and sleeping. Therefore, he will continue to benefit from skilled outpatient therapy to address the above impairments and to be able to participate in activities of daily living with restrictions. Comorbid Conditions: Cardiopulmonary disease Personal Factors: Age, History of falls Clinical Presentation: Evolving Examination elements: 3 Clinical Decision Making: Moderate complexity clinical decision making Functional Goals and Timeframes: PT Goal #1: Patient will demonstrate and/or verbalize understanding of home exercise program for improved self management of the condition. PT Goal #1 Date: 04/21/21 PT Goal #2: Patient will report a Global Rating of Change total score of 3+ or more in order to demonstrate meaningful improvements in function. PT Goal #2 Date: 04/21/21 Plan Physical Therapy Attestation Statement: Patient agrees with the plan of care and goals. Treatment Plan: Plan: Plan of care initiated PT Plan Comments: Follow up in 3 weeks to review program, progress difficulty as able. Start of Plan of Care: 02/08/2021 Number of Visits: up to 5 visits. Patient is on visit 2. PT Duration: up to 90 days Treatment interventions may include: Treatment/Interventions: Therapeutic exercise, Therapeutic functional activity, Neuromuscular re-education, Gait training, Therapeutic modalities as needed Time Spent with Patient Therapeutic Exercise (min): 25 min Time Calculation Total Timed Units (min): 25 min Total Treatment Time (min): 25 min Kayla Reddy P.T., D.P.T. documented in this encounter Plan of Treatment Not on filedocumented as of this encounter Visit Diagnoses Diagnosis Bursitis Trochanteric Right - Primary documented in this encounter Additional Health Concerns Assessment Noted Time PHQ-9 Depression Total Score: 1 02/08/2021 1:00 PM CDT documented as of this encounter
--- OUTSIDE RECORDS SUMMARY | 2022-06-04 18:09 | XMS_ITS | Encounter Summary ---
:1940 Author Organization [facility] Address [address] [place] [address] Care Team Providers Name Role Phone Unavailable Primary Care Provider Unavailable Reason for Referral Outpatient (Routine) - Closed Specialty Diagnoses / Procedures Referred By Contact Refer red To Contact Diagnoses Benign Prostatic Hyperplasia Hypertrophy With Obstruction Milton Banks M.D., [facility] Procedures URO Urethral cath removal & voiding trial (UCO/VT) M.P.H. [address] [place], [place] [phone] Referral ID Status Reason Start Date Expiration Date Visits Requ ested Visits Authorized [id number] Closed 05/11/2021 05/11/2022 1 1 LINEAR EDITOR Outpatient (Routine) - Closed Specialty Diagnoses / Procedures Referred By Contact Refer red To Contact Diagnoses Benign Prostatic Hyperplasia Hypertrophy With Obstruction Milton Banks M.D., [facility] Procedures URO Urocuff M.P.H. [address] [place] [phone] Referral ID Status Reason Start Date Expiration Date Visits Requ ested Visits Authorized [id number] Closed 05/11/2021 05/11/2022 1 1 LINEAR EDITOR Outpatient (Routine) - Closed Specialty Diagnoses / Procedures Referred By Contact Refer red To Contact Urology Milton Banks M. D., [facility] [place] [address] [place] [phone] Referral ID Status Reason Start Date Expiration Date Visits Requ ested Visits Authorized [id number] Closed 05/11/2021 05/11/2022 1 1 Scheduling Instructions Schedule after Urocuff LINEAR EDITOR Reason for Visit Reason Comments Rezum Education Encounter Details Date Type Department Care Team Description 05/11/2021 Education Department of Urology Abiel Banks M.D., M.P.H. [address] [place] [phone] [address] in [facility] rotating equipment specialist Cee Wilks R.N. [address] [place] [phone] Hyperplasia Hypertrophy [address] [place] [address] [place] [phone] Social History Tobacco Use Types Packs/Day Years [...] 05/23/2022 relatives? How often do you attend samaritan or sabianist Never 05/23/2022 services? Do you belong to any clubs or organizations such as No 05/23/2022 samaritan groups, unions, fraternal or athletic groups, or [...] place to sleep or slept in a intermediate (including now)? Education Answer Date Recorded What is the highest level of school you have completed or 12 th grade 03/04/2019 the highest degree you have received? Sex Assigned at Date Recorded Male 04/08/2018 12:55 PM CDT documented as of this encounter Progress Notes Cee Wilks R.N. - 05/11/2021 10:30 AM CST Patient is here for education prior to Rezum procedure. He was instructed on indwelling Chapman catheter care including changing and emptying drainage bags, drainage tube placement and cleaning drainage bags. He was given patient education pamphlets on Indwelling Cathter Care ([id number]) as well as the Care of your Indwelling Catheter patient education video ( [id number]). Patient was also instructed on post procedure s/s of infection and when to notify the provider, he was given patienteducation pamphlet Steam Therapy for Enlarged Prostate (Cr7814). He was given information on bladderirritants and irritative voiding symptoms which are common post procedurally, Dietary Bladder Irritants patient education sheet ([id number]) was also given. He was also notified that bleeding including blood clots and blood draining from around the catheter is not uncommon after the procedure, patient was given hematuria scale for reference. Patients appointment for UCO has been scheduled for 05/16/21, he was given appointment itinerary. Patient verbalized understanding all questions were answered. LINEAR EDITOR documented in this encounter Plan of Treatment Scheduled Orders Name Type Priority Associated Diagnoses Order S chedule URO Urocuff Procedure Routine Benign Prostatic Expected: 0 08/11/2021 Hyperplasia Hypertrophy (Opal roximate), With Obstruction Expires: URO Urethral cath Procedure Routine Benign Prostatic Expect ed: 05/16/2021 removal & voiding Hyperplasia Hypertrophy (Approximate), trial (UCO/VT) With Obstruction Expires: 05/11/2024 Scheduled Referrals Name Type Priority Associated Diagnoses Order S [facility] Urology office Outpatient Referral Routine Expect ed: visit (clinic) 08/11/2021 (Approximate), Expires: 05/11/2024 documented as of this encounter Visit Diagnoses Diagnosis Benign Prostatic Hyperplasia Hypertrophy With Obstruction documented in this encounter Additional Health Concerns Assessment Noted Time PHQ-9 Depression Total Score: 1 02/08/2021 1:00 PM CDT documented as of this encounter
--- OUTSIDE RECORDS SUMMARY | 2022-06-04 18:09 | XMS_ITS | Encounter Summary ---
:[address] [facility] Address [address] [place] [phone] Care Team Providers Name Role Phone Unavailable Primary Care Provider Unavailable Reason for Visit Reason Comments urocuff Outpatient (Routine) - Closed Specialty Diagnoses / Procedures Referred By Contact Refer red To Contact Diagnoses Benign Prostatic Hyperplasia Without Obstruction Carmella Galindo P.A.-C., [facility] Procedures URO Urocuff M.S. [address] [place] [phone] Referral ID Status Reason Start Date Expiration Date Visits Requ ested Visits Authorized [id number] Closed 12/31/2020 12/31/2021 1 1 Encounter Details Date Type Department Care Team Description 03/23/2021 Procedure visit Department of Urology Christiana Galindo P.A.-C., M.S. [address] [place] [phone] Benign Prostatic in [place], Christina Gonzalez, R.N. [address] [place] [phone] Hyperplasia Without [place] Obstruction [address] [place] [phone] Social History Tobacco Use Types Packs/Day Years [...] 05/23/2022 relatives? How often do you attend hinduism or voodoo Never 05/23/2022 services? Do you belong to any clubs or organizations such as No 05/23/2022 hinduism groups, unions, fraternal or athletic groups, or [...] place to sleep or slept in a usp (including now)? Education Answer Date Recorded What is the highest level of school you have completed or 12 th grade 03/04/2019 the highest degree you have received? Sex Assigned at Date Recorded Male 04/08/2018 12:55 PM CDT documented as of this encounter Progress Notes Christina Gonzalez RYanelis. - 03/23/2021 11:00 AM CDT CHIEF COMPLAINT Patient here for a UroCuff test performed via calibrated electronic equipment IMPRESSION/REPORT/PLAN Carmella Galindo PA-C ordered the patient to have a UroCuff test with ultrasound residual. Patient provided verbal consent. Patient had a 8 desire on the 0-10 urge scale. UroCuff test was completed at thistime. Patient voided 213 and had a ultrasound residual of 470 mL's. Patient rates pain at 0 on the 0to 10 pain scale post procedure. COMPLEX UROFLOW PERFORMED VIA CALIBRATED ELECTRONIC EQUIPMENT USING [id number] CUFF TEST. CHIEF COMPLAINT Patient presents for a Urocuff test with ultrasound residual ordered by Dr Banks CLINICAL BACKGROUND Patient presents with LUTS symptoms common to men suffering from benign prostate hyperplasia, including but not limited to Weak stream Patient has been on medication for LUTS symptoms (flomax and finasteride) for the past several yearswith diminishing success. Patient now complains of side effects or intolerance from the medication and seeks to resolve his symptoms. Procedure: The UroCuff Test is a Natural Fill Voiding Pressure Study performed on the [id number] Complete Urodynamics instrument. The AUA BPH Clinical [...] nomogram. REPORT The patient provided verbal consent. Patient had a 8/10 desire on the 1-10 urge scale. UroCuff test was completed: Total voided volume 213 mls Peak (max) flow 6 ml/sec Cuff interruption pressure 200 H2O Ultrasound residual urine 470 ml, patient had separate u/s later at 230 ml Images: Inserted into chart Test Indication: 1. Weak stream 2. BPH with obstructive symptoms 3. 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 When considered with the elevated PVR, IPSS, laboratory results and medical history, MUHAMMAD is indicated. Direct visualization of the obstruction is required, after which a complete diagnostic evaluation will clarify the appropriate therapeutic intervention. documented in this encounter Plan of Treatment Not on filedocumented as of this encounter Visit Diagnoses Diagnosis Benign Prostatic Hyperplasia Without Obs truction documented in this encounter Additional Health Concerns Assessment Noted Time PHQ-9 Depression Total Score: 1 02/08/2021 1:00 PM CDT documented as of this encounter
--- OUTSIDE RECORDS SUMMARY | 2022-06-04 18:09 | XMS_ITS | Encounter Summary ---
:[address] [facility] Address [address] [place] [address] Care Team Providers Name Role Phone Unavailable Primary Care Provider Unavailable Reason for Visit Reason Comments UCO/Void trial Outpatient (Routine) - Closed Specialty Diagnoses / Procedures Referred By Contact Refer red To Contact Diagnoses Benign Prostatic Hyperplasia Hypertrophy With Obstruction Milton Banks M.D., [facility] Procedures URO Urethral cath removal & voiding trial (UCO/VT) M.P.H. [address] [place] [phone] Referral ID Status Reason Start Date Expiration Date Visits Requ ested Visits Authorized [id number] Closed 05/11/2021 05/11/2022 1 1 Encounter Details Date Type Department Care Team Description 05/16/2021 Procedure visit Department of Urology Abiel Banks M.D., M.P.H. [address] [place] [phone] Benign Prostatic in [place], Cee Wilks R.N. [address] [place] [phone] Hyperplasia [place] Hypertrophy With [address] [facility] [place] [phone] Social History Tobacco Use Types Packs/Day Years [...] How often do you attend sabianism or taoist Never 05/23/2022 services? Do you [...] encounter Progress Notes Cee Wilks R.N. - 05/16/2021 10:30 AM CST CHIEF COMPLAINT Reason for visit, urinary catheter removal status post Rezum by Dr. Milton Banks ([id number]) on 05/11/21. IMPRESSION/REPORT/PLAN Urine was clear. Patient was prefilled with 240 mL's SNS. Patient voided 300 mL's. Patient had an ultrasound residual of 16 mL's. Patient tolerated procedure well. Patient education: to push fluids. If patient is unable to void he was notified to return to the Urology department or to the nearest emergency room, patient verbalized understanding. . BLANKS CUT OFF SAW OPERATOR documented in this encounter Plan of Treatment Not on filedocumented as of this encounter Visit Diagnoses Diagnosis Benign Prostatic Hyperplasia Hypertrophy With Obstruction documented in this encounter Additional Health Concerns Assessment Noted Time PHQ-9 Depression Total Score: 1 02/08/2021 1:00 PM CDT documented as of this encounter
--- OUTSIDE RECORDS SUMMARY | 2022-06-04 18:09 | XMS_ITS | Encounter Summary ---
:1940 Author Organization [facility] Address [address] [place] [address] Care Team Providers Name Role Phone Unavailable Primary Care Provider Unavailable Reason for Visit Physical Therapy (Routine) - Canceled Specialty Diagnoses / Procedures Referred By Contact Refer red To Contact Diagnoses Bursitis Trochanteric Right Sita Ralph M.D. [facility] Procedures PT Ongoing treatment [address] [id number] Referral ID Status Reason Start Date Expiration Date Visits V isits Requested Authorized [id number] Canceled 01/19/2021 01/19/2022 99 99 Encounter Details Date Type Department Care Team Description 03/03/2021 Clinical Support Department of Physical Sita Ralph M.D. [address] [address] [address] Bursitis Medicine and Nicolette Reddy P.T., D.P.TChristian [address] [place] [phone] Trochanteric Right Rehabilitation in [place], [place] [address] [place] [phone] Social History Tobacco Use Types Packs/Day Years [...] How often do you attend islam or yarsani Never 05/23/2022 services? Do you belong to [...] Progress Notes Nicolette Reddy P.T., D.P.T. - 03/03/2021 2:00 PM CDT Physical Therapy Musculoskeletal Outpatient Progress Note SUBJECTIVE Patient's Name: Familia Merrill Referring Provider: Sita Ralph M.D. Medical Diagnosis: 1. Bursitis Trochanteric Right Reason for Referral: Right hip pain Payor: MEDICA / Plan: [employer] COST SHARE / Product Type: Cost Share / Epic Visit Count: 3 Family/Caregiver Present: No Patient goals:Less pain with sitting Patient comments: Patient reports that he continues to work on his exercises daily and the balance exercise is the most difficult. He reports his hip is doing well and only bothers if he is sitting fora few hours. Fall in the last 12 months: Yes Are you fearful of falling?: No OBJECTIVE TREATMENT Treatment today consisted of: Therapeutic Exercise: Reviewed home exercise program and made modifications as described. Verbal and tactile cues were provided for appropriate form with all exercises. New or progressed exercises are in bold. Access Code: [email or web address] URL: [email or web address] Date: 01/19/2021 Prepared by: Nicolette Reddy ?? Exercises Alternating Single Leg Bridge - 4 x weekly - 10 sets - 4 reps Clamshell - 4 x weekly - 20 reps - 3 seconds hold Sidelying Hip Abduction - 4 x weekly - 20 reps Alternating Single Leg Balance - Foot in Front - 1 x daily - 20 reps - 3 hold Supine Piriformis Stretch with Foot on Ground - 1 x daily - 3 reps - 20-30 hold Home Exercise Program/Education: Reviewed previously instructed exercises for technique. New exercises, progressions and needed changes to exercises are detailed above. Patient was provided verbal cueing and physical cueing for proper independent completion of exercises by end of session. The following patient education materials were provided today: [employer] Paper copy provided to patient Contact monitoring: [...] home exercise program with no acute distress. He has shown good improvement in his sitting tolerance and will plan to continue with his exercises independently and call and schedule a follow up if needed. Comorbid Conditions: Cardiopulmonary disease Personal Factors: Age, History of falls Clinical Presentation: Evolving Examination elements: 3 Clinical Decision Making: Moderate complexity clinical decision making Functional Goals and Timeframes: PT Goal #1: Patient will demonstrate and/or verbalize understanding of home exercise program for improved self management of the condition. PT Goal #1 Date: 04/21/21 PT Goal #1 Status: Achieved PT Goal #2: Patient will report a Global Rating of Change total score of 3+ or more in order to demonstrate meaningful improvements in function. PT Goal #2 Date: 04/21/21 PT Goal #2 Status: Achieved Plan Physical Therapy Attestation Statement: Patient agrees with the plan of care and goals. Treatment Plan: Plan: Plan of care initiated PT Plan Comments: Patient will continue with exercises independently. Start of Plan of Care: 03/03/2021 Number of Visits: up to 5 visits. Patient is on visit 3. PT Duration: up to 90 days Treatment [...] encounter Visit Diagnoses Diagnosis Bursitis Trochanteric Right documented in this encounter Additional Health Concerns Assessment Noted Time PHQ-9 Depression Total Score: 1 02/08/2021 1:00 PM CDT documented as of this encounter
--- OUTSIDE RECORDS SUMMARY | 2022-06-04 18:09 | XMS_ITS | Encounter Summary ---
:1940 Author Organization [facility] Address [address] [place] [id number] Care Team Providers Name Role Phone Unavailable Primary Care Provider Unavailable Reason for Visit Outpatient (Routine) - Closed Specialty Diagnoses / Procedures Referred By Contact Refer red To Contact Diagnoses Benign Prostatic Hyperplasia Without Obstruction Carmella Galindo P.A.-C., [facility] Procedures URO Prostate US M.S. [address] [place] [phone] Referral ID Status Reason Start Date Expiration Date Visits Requ ested Visits Authorized [id number] Closed 12/31/2020 12/31/2021 1 1 Encounter Details Date Type Department Care Team Description 03/23/2021 Procedure visit Department of Urology Christiana Galindo P.A.-C., M.S. [address] [place] [phone] Benign Prostatic in [facility] Ye Quiles M.D. 200 [place] [phone] Hyperplasia Without [place] Obstruction [address] [place] [address] [phone] Social History Tobacco Use Types Packs/Day Years [...] How often do you attend episcopal or episcopalian Never 05/23/2022 services? Do you [...] documented as of this encounter Progress Notes Ilene Dempsey - 03/23/2021 9:00 AM CDT Patient was seen for prostate ultrasound . Probe used: serial number [id number] ([id number]). documented in this encounter Procedure Notes Morelia Manriquez M.D. - 03/23/2021 9:00 AM CDTAssociated Order(s): URO Prostate US Pre-Procedure Diagnose(s): Benign Prostatic Hyperplasia Without Obstruction Post-Procedure Diagnose(s): Benign Prostatic Hyperplasia Without Obstruction URO Prostate US Date/Time: 03/23/2021 9:21 AM Performed by: Morelia Manriquez M.D. Authorized by: Carmella Galindo P.A.-C., M.S. IMPRESSIONS Normal prostate ultrasound PROCEDURE DETAILS: Patient was placed in the right-lateral decubuitus position. Length (mm): 46 Height (mm): 30 Width (mm): 47 Ellipsoid volume: 33.96 Bullet volume: 42.45 Prominent lesion volume: 64.86 Prostate: intravesical protrusion of median lobe Ultrasound image captured: yes ELVIS demonstrated no evidence of nodules or induration. Intravesicular protrusion of prostatic medianlobe evident on ultrasound. CONSENT Consent obtained: verbal Consent given by: patient The benefits, risks and alternatives to the procedure and the potential need for sedation or anesthesia as well as the names, roles, and responsibilities of healthcare team members performing significant interventional tasks were discussed with the patient and/or decision maker. UNIVERSAL [employer]OTOCOL All relevant documentation and testing were reviewed and available. All required blood products, implants, devices and or special equipment were made available as applicable. Pre-procedure verificationwas conducted and the correct site was marked if required. A fire risk assessment was done as applicable. The procedural time-out was conducted prior to performing the procedure and confirmed in a procedural pause. PRE PROCEDURE DETAILS Indications: BPH SEDATION / ANESTHESIA Anesthesia method: none documented in this encounter Plan of Treatment Not on filedocumented as of this encounter Procedures Procedure Name Priority Date/Time Associated Diagnosis Comme nts MA US TRANSRECTAL Routine 03/23/2021 9:21 AM Benign Prostatic Results for this CDT Hyperplasia Without procedur e are in Obstruction the results section. documented in this encounter Results MA US TRANSRECTAL (03/23/2021 9:21 AM CDT) Specimen (Source) Anatomical Location Collection Method / Collectio n Time Received Time / Laterality Volume Narrative Morelia Manriquez M.D. - 03/23/2021 9:21 AM CDT Morelia Manriquez M.D. ? 03/24/2021 ??7:52 PM URO Prostate US Date/Time: 03/23/2021 9:21 AM Performed by: Morelia Manriquez M.D. Authorized by: Carmella Galindo P.A.-C., M.S. IMPRESSIONS ??Normal prostate ultrasound PROCEDURE DETAILS: [...] none Carmella Galindo P.A.-C., M.S. UROLOGY ORDERABLES documented in this encounter Visit Diagnoses Diagnosis Benign Prostatic Hyperplasia Without Obs truction documented in this encounter Additional Health Concerns Assessment Noted Time PHQ-9 Depression Total Score: 1 02/08/2021 1:00 PM CDT documented as of this encounter
--- OUTSIDE RECORDS SUMMARY | 2022-06-04 18:09 | XMS_ITS | Encounter Summary ---
:1940 Author Organization [facility] Address [address] [place] [address] Care Team Providers Name Role Phone Unavailable Primary Care Provider Unavailable Reason for Visit Reason Comments Benign Prostatic Hypertrophy Uroflow. Outpatient (Routine) - Closed Specialty Diagnoses / Procedures Referred By Contact Refer red To Contact Diagnoses Benign Prostatic Hyperplasia Without Obstruction Antelmo Reese M.D. [facility] Procedures URO Uroflow [address] [place] [phone] Referral ID Status Reason Start Date Expiration Date Visits Requ ested Visits Authorized [id number] Closed 12/24/2020 12/24/2021 1 1 Encounter Details Date Type Department Care Team Description 12/31/2020 Procedure visit Department of Urology Antelmo Reese M.D. [address] [place] [address] [phone] Benign Prostatic Hyperplasia Without Obs truction; in [place], Kierra Alberts RChristianNChristian [address] [place] [address] [phone] Hyperplasia Prostate Benign Localized Wi th Obstruction; [place] Kirt Tran M.D. [address] [place] [address] [phone] Feeling Of Incomplete Bladder Emptying [address] [place] [address] [phone] Social History Tobacco Use Types Packs/Day Years [...] 05/23/2022 relatives? How often do you attend mandaeism or caodaism Never 05/23/2022 services? Do you belong to any clubs or organizations such as No 05/23/2022 mandaeism groups, unions, fraternal or athletic groups, or [...] as of this encounter Progress Notes Kierra Alberts, RChristianN. - 12/31/2020 9:15 AM CDT CHIEF COMPLAINT Patient here for a complex uroflow via calibrated electronic equipment and a residual urine check byultrasound. IMPRESSION/REPORT/PLAN Dr. Antelmo Reese ordered the patient to have a complex uroflow with residual urine check via ultrasound. Patient had a had a moderate urge to void. Uroflow was completed at this time. Patient voided 257 mL's and had a ultrasound residual of 152 mL's. Patient rates pain at 0 on the 0 to 10 pain scalepost procedure. documented in this encounter Procedure Notes Kirt Tran M.D. - 12/31/2020 9:15 AM CDTAssociated Order(s): URO UROFLOW REASON FOR VISIT: Uroflow: The patient here for a complex uroflow via calibrated electronic equipment and a residual urine check by ultrasound. FINDINGS: Peak flow 7 ml/sec Average flow 2 ml/sec Voiding time 117 sec Total voided volume 257 mls Residual urine 152 ml by ultrasound Detrusor flat and prolonged flow pattern IMPRESSION: Elevated postvoid residual with low Qmax. Differential diagnosis includes bladder outlet obstructionversus hypocontractile bladder. Clinical correlation is recommended. documented in this encounter Plan of Treatment Not on filedocumented as of this encounter Procedures Procedure Name Priority Date/Time Associated Diagnosis Comme nts URO UROFLOW Routine 12/31/2020 9:15 AM Benign Prostatic Resul ts for this CDT Hyperplasia Without procedur e are in Obstruction the results section. documented in this encounter Results URO Uroflow (12/31/2020 9:15 AM CDT) Narrative Kirt Tran M.D. - 12/31/2020 9:1 5 AM CDT Kirt Tran M.D. ? 01/05/2021 ??8:11 AM REASON FOR VISIT: Uroflow: The patient here for a complex uroflow via calibrated electronic equipment and a residual urin e check by ultrasound. FINDINGS: Peak flow 7 ml/sec Average flow 2 ml/sec Voiding time ??117 sec Total voided volume 257 mls Residual urine 152 ml by ultrasound Detrusor flat and prolonged flow pattern IMPRESSION: Elevated postvoid residual with low Qmax . ??Differential diagnosis includes bladder outlet obstruction vers us hypocontractile bladder. Clinical correlation is recomme nded. Antelmo Reese M.D. UROLOGY ORDERABLES documented in this encounter Visit Diagnoses Diagnosis Benign Prostatic Hyperplasia Without Obs truction Hyperplasia Prostate Benign Localized Wi th Obstruction Feeling Of Incomplete Bladder Emptying documented in this encounter Additional Health Concerns Assessment Noted Time PHQ-9 Depression Total Score: 3 03/03/2020 8:00 AM CDT documented as of this encounter
--- OUTSIDE RECORDS SUMMARY | 2022-06-04 18:09 | XMS_ITS | Encounter Summary ---
:1940 Author Organization [facility] Address [address] [place] [phone] Care Team Providers Name Role Phone Unavailable Primary Care Provider Unavailable Reason for Visit Reason Comments Med Refill Encounter Details Date Type Department Care Team Description 09/19/2021 Refill Division of Nephrology and Antelmo White M.D. Med Refill Hypertension in [address] [phone] [place] [address] [place] [phone] Social History Tobacco Use Types Packs/Day Years [...] 05/23/2022 relatives? How often do you attend restoration or advent Never 05/23/2022 services? Do you belong to any clubs or organizations such as No 05/23/2022 restoration groups, unions, fraternal or athletic groups, or [...] Diagnosis Pain Hip Bilateral Other Chronic Pain Insomnia documented in this encounter Additional Health Concerns Assessment Noted Time PHQ-9 Depression Total Score: 1 02/08/2021 1:00 PM CDT documented as of this encounter
--- OUTSIDE RECORDS SUMMARY | 2022-06-04 18:09 | XMS_ITS | Encounter Summary ---
:[address] [facility] Address [address] [place] [address] Care Team Providers Name Role Phone Unavailable Primary Care Provider Unavailable Reason for Visit Physical Therapy (Routine) - Closed Specialty Diagnoses / Procedures Referred By Contact Refer red To Contact Diagnoses Bursitis Trochanteric Right Sita Ralph M.D. [facility] Procedures PT Evaluate and treat [address] [place] [address] [id number] Referral ID Status Reason Start Date Expiration Date Visits Requ ested Visits Authorized [id number] Closed 12/24/2020 12/24/2021 12 12 Encounter Details Date Type Department Care Team Description 01/19/2021 Comprehensive Visit Department of Aure Ralph M.D. [address] [place] [address] [id number] Bursitis Physical Medicine and Nicolette Reddy P.T., D.P.TChristian [address] [place] [phone] Trochanteric Right Rehabilitation in (Primary D x) [place], [place] [address] [place] [phone] Social History Tobacco Use Types Packs/Day Years [...] 05/23/2022 relatives? How often do you attend yarsani or orthodoxy Never 05/23/2022 services? Do you belong to any clubs or organizations such as No 05/23/2022 yarsani groups, unions, fraternal or athletic groups, or [...] documented as of this encounter Consult Notes Nicolette Reddy P.T., D.P.T. - 01/19/2021 1:00 PM CDT Physical Therapy Musculoskeletal Outpatient Evaluation and Treatment SUBJECTIVE Patient's Name: Familia Denisiff Referring Provider: Sita Ralph M.D. Medical Diagnosis: 1. Bursitis Trochanteric Right Reason for Referral: Right hip pain Payor: MEDICA / Plan: [employer] COST SHARE / Product Type: Cost Share / Epic Visit Count: 1 PERTINENT MEDICAL / SURGICAL HISTORY: Patient Active Problem List Diagnosis ??? Hypertension Personal History ??? Coronary Artery Disease (Unspecified) ??? Atrial Fibrillation (HCC) ??? Stroke (HCC) ??? Loss Memory Short Term ??? 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 Bursitis Trochanteric Right ??? Gluteal Tendinitis Right Hip ??? 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 Benign Prostatic Hyperplasia Without Obstruction Past Surgical History: Procedure Laterality Date ??? BIOPSY Right 01/06/2005 >Shave Biopsy (lesion of unknown origin, right muslim). ??? HIP ARTHROPLASTY Left 09/09/2013 >Left total [...] eye, with review of intraocular power calculation. Familia Merrill is a 80 y.o. male who presents to outpatient physical therapy for evaluation. His symptoms consist of right lateral hip pain. He reports his symptoms began in February 2020 without any specific cause. He had an injection on 12/24/20 with 70% improvement in pain. Aggravating Factors: sitting and lying on side Relieving Factors: activity modification Previous Treatments: Injection Prior Function/Occupational Profile: Employment status: Retired Exercise/Activity Level: Patient has a current exercise routine, which includes 20 minutes walking on treadmill, 4 days/wk Family/Caregiver Present: No Patient goals:Less pain with sitting Fall in the last 12 months: Yes Are you fearful of falling?: No Patient/Family Education Assessment: The patient was assessed. Barriers assessed (Cultural, Scientologist/Spiritual, Motivational, Physical/Cognitive, Language, Emotional) No Barriers The patient and/or family learning style includes: doing OBJECTIVE REVIEW OF SYSTEMS Diagnostic Tests: Imaging DX Hip And Pelvis Right 2-3 Views Result Date: 12/24/2020 Impression: Mild degenerative arthritis right hip. Left LEAH. Degenerative changes lower lumbar spine. Osteopenia. Vascular calcification. PHYSICAL EXAM Pain Assessment Pain Assessment: 0-10 Numeric Pain Intensity Scale Pain Score: 2 Pain Type: Chronic pain Pain Location: Hip Pain Orientation: Right Outcome Measures: Gait: No gait aid, shuffling gait pattern Balance: some unsteadiness with walking and turning Posture: normal Palpation: tenderness along right greater trochanter Sensation: Lower extremity sensation intact to light touch throughout. Skin: no scars, erythema, lacerations, muscle wasting Lumbar range of motion: Lumbar range of motion normal. Hip range of motion: within normal limits throughout Functional screening: Bridge:able to perform bridge without difficulty Hip special tests: FADIR: negative Hip Scour: negative STRENGTH Left Right Hip flexion 5 5 Quadriceps 5 5 Hamstring 5 5 Hip abduction 5 4 Hip external rotation 5 5 Hip internal rotation 5 5 Able to stand on toes Yes with hand support Yes with hand support Able to stand on heels Yes with hand support Yes with hand support TREATMENT Treatment today consisted of Therapeutic Exercise: Patient instructed on home exercise program. Verbal and tactile cues were provided for appropriate form with all exercises. Access Code: [email or web address] URL: [email or web address]/ Date: 01/19/2021 Prepared by: Nicolette Reddy Exercises Marching Bridge - 4 x weekly - 10 sets - 4 reps Clamshell - 4 x weekly - 20 reps - 3 seconds hold Sidelying Hip Abduction - 4 x weekly - 20 reps Education: - objective findings as related to patients condition - aerobic activity and exercise as contributions to improving condition and overall health Handouts: The following patient education materials were provided today: [employer] labs: Paper copy provided to patient Contact monitoring: PPE used during therapy: Therapist was wearing the following PPE throughout entire session: surgicalmask Patient was wearing a mask during therapy session: yes Assessment Clinical Impression: Mr. Merrill is a pleasant 80 y.o. year old male presenting to physical therapy with signs and symptomsconsistent with right greater trochanteric pain syndrome. Impairments include weakness or reduced tissue capacity to tolerate loads and pain with sleeping. He would benefit from further skilled physical therapy in order to be able to participate in activities of daily living with restrictions. The patient was instructed in a home program as above. The patient tolerated the above exercises well. The patient will be seen for a series of visits according to the plan below. Rehab Potential: Mr. Merrill has Good potential to achieve established physical therapy goals within the time frame outlined below, provided he actively participates in his physical therapy treatment plan and home program. Comorbid Conditions: Cardiopulmonary disease Personal Factors: Age, History of falls Clinical Presentation: Evolving Examination elements: 3 Clinical Decision Making: Moderate complexity clinical decision making Clinical Decision Making Complexity: Moderate complexity clinical decision making Functional Goals [...] function. PT Goal #2 Date: 04/21/21 Plan Mr. Merrill was educated regarding evaluative findings, diagnosis, prognosis, potential risks and benefits of rehabilitation interventions. A collaborative effort was used to establish goals and plan of care. He was informed of his right to make decisions regarding his care, including refusal of examination or treatment or selection of services from another provider if desired. The treatment plan may be progressed or modified based upon his response to treatment. Patient agrees with the plan of care and goals. Treatment Plan: Plan: Plan of care initiated PT Plan Comments: Follow up in 3 weeks to review program, add balance. Start of Plan of Care: 01/19/2021 Number of Visits: up to 5 visits PT Duration: up to 90 days Treatment interventions may include: Treatment/Interventions: Therapeutic exercise, Therapeutic functional activity, Neuromuscular re-education, Gait training, Therapeutic modalities as needed Time Spent with Patient PT Evaluation (min): 20 min Therapeutic Exercise (min): 25 min Time Calculation Total Timed Units (min): 25 min Total Treatment Time (min): 45 min Kayla Reddy P.T., D.P.T. documented in this encounter Plan of Treatment Not on filedocumented as of this encounter Visit Diagnoses Diagnosis Bursitis Trochanteric Right - Primary documented in this encounter Additional Health Concerns Assessment Noted Time PHQ-9 Depression Total Score: 3 03/03/2020 8:00 AM CDT documented as of this encounter
--- OUTSIDE RECORDS SUMMARY | 2022-06-04 18:09 | XMS_ITS | Encounter Summary ---
:1940 Author Organization [facility] Address [address] [place] [address] Care Team Providers Name Role Phone Unavailable Primary Care Provider Unavailable Reason for Referral Outpatient (Routine) - Closed Specialty Diagnoses / Procedures Referred By Contact Refer red To Contact Diagnoses Benign Prostatic Hyperplasia Hypertrophy With Obstruction [facility] Procedures URO Uroflow C.N.P. [address] [place] [phone] Referral ID Status Reason Start Date Expiration Date Visits Requ ested Visits Authorized [id number] Closed 09/27/2021 09/27/2022 1 1 utpatient (Routine) - Closed Specialty Diagnoses / Procedures Referred By Contact Refer red To Contact Urology Maco Mclean APRN, C.N.P. [address] [phone] Referral ID Status Reason Start Date Expiration Date Visits Requ ested Visits Authorized [id number] Closed 09/27/2021 09/27/2022 1 1 Reason for Visit Outpatient (Routine) - Closed Specialty Diagnoses / Procedures Referred By Contact Refer red To Contact Urology Milton Banks M. D., M.P.H. [address] [phone] Referral ID Status Reason Start Date Expiration Date Visits Requ ested Visits Authorized [id number] Closed 05/11/2021 05/11/2022 1 1 Encounter Details Date Type Department Care Team Description 09/27/2021 Office Visit Department of Urology Milton Banks B enign Prostatic in Yaw Parmar, M.P.H. Hyperplasia [place] [address] [facility] Hypertrophy With [address] [place], [place] Obstruction ([place] [address] Dx) [phone] Social History Tobacco Use Types Packs/Day Years [...] 05/23/2022 relatives? How often do you attend anglican or druze Never 05/23/2022 services? Do you belong to any clubs or organizations such as No 05/23/2022 anglican groups, unions, fraternal or athletic groups, or [...] this encounter Progress Notes Maco Mclean APRN, C.N.P. - 09/27/2021 3:30 PM CDT SUBJECTIVE REASON FOR CONSULT BPH follow-up HISTORY OF PRESENT ILLNESS Mr. Merrill is a 81 y.o. who is status post Rezum steam ablation of the prostate 05/11/2021. He received three treatments to his 35 g gland. Symptoms prior to intervention included frequency, urgency Brinda nocturia times 3 to 5, slow stream, and PVR of 150 to 470. Patient is overall satisfied with the response he has noted after resume. He feels his stream is improved. He was having some episodes of leakage which have resolved. He is glad that he did the procedure. Patient attempted uro cuff earlier today and was not able to urinate for the test. He reports to have voided a good amount shortly afterwards. At the time of the appointment today, he had not urinated for 2 hours and had taken in a fair amount of liquid intake. His ultrasound bladder volume was 500 and he did not have a significant urge to urinate. ASSESSMENT / PLAN #1 BPH status post Rezum #2 Incomplete bladder emptying Plan Patient continues to leave some urine behind, though does not have any red flag symptoms of recurrent episodes of retention or urinary tract infections. Would favor period of observation and will see him back in six months with a pre scheduled uroflow before the appointment. Recommendations 1. Uroflow and return visit in six months 15 minutes documented in this encounter Plan of Treatment Scheduled Referrals Name Type Priority Associated Diagnoses [facility] Outpatient Referral Routine Expect ed: visit (clinic) 03/29/2022 (Approximate), Expires: 12/27/2022 documented as of this encounter Results URO Uroflow (03/02/2022 1:45 [...] Prostatic Hyperplasia Hypertrophy With Obstruction - Primary Benign Prostatic Hyperplasia Hypertrophy With Obstruction documented in this encounter Additional Health Concerns Assessment Noted Time PHQ-9 Depression Total Score: 1 02/08/2021 1:00 PM CDT documented as of this encounter
--- OUTSIDE RECORDS SUMMARY | 2022-06-04 18:09 | XMS_ITS | Encounter Summary ---
:1940 Author Organization [facility] Address [address] [place] [address] Care Team Providers Name Role Phone Unavailable Primary Care Provider Unavailable Reason for Referral Outpatient (Routine) - Closed Specialty Diagnoses / Procedures Referred By Contact Refer red To Contact Diagnoses Benign Prostatic Hyperplasia Hypertrophy With Obstruction Milton Banks M.D., Procedures URO Rezum Treatment M.P.H. [address] [place] [address] [phone] Referral ID Status Reason Start Date Expiration Date Visits Requ ested Visits Authorized [id number] Closed 03/23/2021 03/23/2022 1 1 Specialty Diagnoses / Procedures Referred By Contact Refer red To Contact Milton Banks M. D., M.P.H. [facility] [address] [place] [address] [phone] Referral ID Status Reason Start Date Expiration Date Visits Requ ested Visits Authorized Scheduling Instructions Morning of Rezum Encounter Details Date Type Department Care Team Description 03/23/2021 Orders Only Department of Urology Milton Banks B enign Prostatic Hyperplasia Without Obstruction (Primary Dx); in [place], M.P.H. Benign Prostatic Hyperplasia Hypertrophy With Obstruction [place] 200 [facility] [address] [place] [phone] Social History Tobacco Use Types Packs/Day Years [...] 05/23/2022 relatives? How often do you attend lutheran or baptism Never 05/23/2022 services? Do you belong to any clubs or organizations such as No 05/23/2022 lutheran groups, unions, fraternal or athletic groups, or [...] Name Type Priority Associated Diagnoses [facility] - [facility] Referral Routine Benign Prostatic E xpected: health nurse deanne Hyperplasia education visit Hypertrophy With (Approxi mate), (clinic) Obstruction Expires: 03/23/2024 documented as of this encounter Results URO Rezum Treatment (05/11/2021 1:32 PM [employer]AULT [employer] [place]) Specimen (Source) Anatomical Location Collection Method / Collectio n Time Received Time / Laterality Volume Narrative Milton Banks M.D., M.P.H. - 021 1:32 PM [facility] [employer] [place] Milton Banks M.D., M.P.H. ? 05/11/2021 ??1:35 [...] difficulty. ??pedersen catheter present: co ude 18 Armenian was placed without difficulty. CONSENT Consent obtained: written SEDATION / ANESTHESIA Anesthesia method: nerve block Nerve block type: lidocaine POST-PROCEDURE DETAILS: Patient tolerated procedure well, he rat ed his pain 0 out of 10. Procedure completed successfully. yes ?? Complications: no apparent complications Milton Banks M.D., M.P.H. UROLOGY ORDERABLES Bacterial Culture, Aerobic + Susc, Urine (04/29/2021 10:04 AM CDT) Component Value Ref Test Analysis Performed At [facility] Range Method Time Signature Urine Organism present [...] [facility] [address] [place], [place] [address] [facility] [place] [address] Laboratories-[facility] [address] documented in this encounter Visit Diagnoses Diagnosis Benign Prostatic Hyperplasia Without Obs truction - Primary Benign Prostatic Hyperplasia Hypertrophy With Obstruction Dysfunction Sexual - Primary Benign Prostatic Hyperplasia Without Obs truction Benign Prostatic Hyperplasia Hypertrophy With Obstruction documented in this encounter Additional Health Concerns Assessment Noted Time PHQ-9 Depression Total Score: 1 02/08/2021 1:00 PM CDT documented as of this encounter
--- OUTSIDE RECORDS SUMMARY | 2022-06-04 18:09 | XMS_ITS | Encounter Summary ---
:1940 Author Organization [facility] Address [address] [place] [address] Care Team Providers Name Role Phone Unavailable Primary Care Provider Unavailable Encounter Details Date Type Department Care Team Description 05/11/2021 Ancillary Procedure Department of Urology Social History [...] How often do you attend zoroastrianism or orthodoxy Never 05/23/2022 services? Do you [...] Diagnosis Comme nts UROLOGY IMAGE EXAM Routine 05/11/2021 1:40 PM Res ults for this DISPLAY MECHANIC procedure are i n the results section. documented in this encounter Results Non-Radiology Image-Urology Image Exam (05/11/2021 1:40 PM DISPLAY MECHANIC) Specimen (Source) Anatomical Collection Method Collection Time Re ceived Time Location / / Volume Laterality 05/11/2021 1:40 PM DISPLAY MECHANIC Narrative [facility] - 05/11/2021 1:48 PM DISPLAY MECHANIC This order has been created and auto-finalized [...]
--- OUTSIDE RECORDS SUMMARY | 2022-06-04 18:09 | XMS_ITS | Encounter Summary ---
:1940 Author Organization [facility] Address [address] [place] [address] Care Team Providers Name Role Phone Unavailable Primary Care Provider Unavailable Encounter Details Date Type Department Care Team Description 09/19/2021 Orders Only Division of Nephrology and Ghulam Reese, [facility] [place] [address] [facility] [address] [place] [phone] (Wo rk) Social History Tobacco Use Types [...] 05/23/2022 relatives? How often do you attend pentecostal or samaritan Never 05/23/2022 services? Do you belong to any clubs or organizations such as No 05/23/2022 pentecostal groups, unions, fraternal or athletic groups, or [...]
--- OUTSIDE RECORDS SUMMARY | 2022-06-04 18:09 | XMS_ITS | Encounter Summary ---
:1940 Author Organization [facility] Address [address] [place] [address] Care Team Providers Name Role Phone Unavailable Primary Care Provider Unavailable Reason for Visit Reason Comments Cystoscopy Outpatient (Routine) - Closed Specialty Diagnoses / Procedures Referred By Contact Refer red To Contact Diagnoses Benign Prostatic Hyperplasia Without Obstruction Carmella Galindo P.A.-C., [facility] Procedures URO Cystoscopy (general) M.S. [address] [place] [address] [phone] Referral ID Status Reason Start Date Expiration Date Visits Requ ested Visits Authorized [id number] Closed 12/31/2020 12/31/2021 1 1 Encounter Details Date Type Department Care Team Description 03/23/2021 Procedure visit Department of Carmella Galindo P.A.-C., M.S. [address] [place] [phone] Benign Prostatic Urology in Ye Quiles M.D. [address] [place] [address] [phone] Hyperplasia Without [place], [place] Morelia Manriquez M.D. [address] [place] [phone] Obstruction [address] [place] [address] [phone] Social History Tobacco Use Types Packs/Day Years [...] How often do you attend congregational or mormon Never 05/23/2022 services? Do you [...] documented as of this encounter Progress Notes Hattie Estevez, L.P.N. - 03/23/2021 8:00 AM CDT Patient was seen for a cystoscopy procedure. Cystoscope CYF- #[id number] was used during today's cystoscopy procedure. Accessories used: cystoscope reusable (sterilized) stop cock and [id number] Load number from processing via [employer]: [id number] documented in this encounter Procedure Notes Morelia Manriquez M.D. - 03/23/2021 8:00 AM CDTAssociated Order(s): URO Cystoscopy (general) Pre-Procedure Diagnose(s): Benign Prostatic Hyperplasia Without Obstruction Post-Procedure Diagnose(s): Benign Prostatic Hyperplasia Without Obstruction URO Cystoscopy (general) Date/Time: 03/23/2021 8:30 AM Performed by: Morelia Manriquez M.D. Authorized by: Carmella Galindo P.A.-C., M.S. IMPRESSION BPH Additional procedures performed: cystoscopy PROCEDURE DETAILS HISTORY OF PRESENT ILLNESS Mr. Merrill is an 80-year-old male who presents for BPH evaluation with cystoscopy and trans rectal ultrasound of the prostate. PROCEDURE The patient was brought to cystoscopy suite and placed in lithotomy position. Patient was prepped and draped in the standard fashion. A flexible cystoscope was inserted through the urethra and into thebladder. Prosthetic urethra was obstructive in nature and demonstrated trilobar hypertrophy with kissing lateral lobes and a protruding median lobe. Urethroscopy demonstrated normal appearing urethra mucosa. Bladder was entered and inspected. No erythematous or papillary bladder lesions were noted. There was evidence of moderate trabeculation with intermittent cellules across the posterior bladder wall. The ureteral orifices were identified in their orthotopic position bilaterally. Retroflex view dem onstrated intravesicular protrusion of a prostatic median lobe. There was a mild amount of bleeding identified at the median lobe. Cystoscope was removed and patient tolerated the procedure well. DIANOSIS: Trilobar BPH with evidence of obstruction PLAN: Follow-up later today with transrectal ultrasound and office evaluation CONSENT Consent obtained: verbal [...] a procedural pause. PRE-PROCEDURE DETAILS Procedure purpose: Diagnostic Indications: BPH evaluation Appropriate hand hygiene, gown, cap, mask, protective eyewear, sterile gloves, skin preparation, sterile drape, and strict aseptic technique were utilized as applicable for the procedure.: yes Site preparation: Povidone-iodine SEDATION / ANESTHESIA Anesthesia method: none POST-PROCEDURE DETAILS Procedure completed successfully: yes Complications: no apparent complications documented in this encounter Plan of Treatment Not on filedocumented as of this encounter Procedures Procedure Name Priority Date/Time Associated Diagnosis Comme nts NM CYSTOURETHROSCOPY Routine 03/23/2021 8:30 AM Benign Prostat ic Results for this CDT Hyperplasia Without procedur e are in Obstruction the results section. documented in this encounter Results NM CYSTOURETHROSCOPY (03/23/2021 8:30 AM CDT) Specimen (Source) [...] PROCEDURE The patient was brought to cystoscopy bryant ite and placed in lithotomy position. Patient was [...]
--- OUTSIDE RECORDS SUMMARY | 2022-06-04 18:10 | XMS_ITS | Encounter Summary ---
:1940 Author Organization [facility] Address [address] [place] [address] Care Team Providers Name Role Phone Unavailable Primary Care Provider Unavailable Reason for Visit Reason Comments 3 Month Opioid Monitoring Encounter Details Date Type Department Care Team Description 05/25/2020 Clinical Division of Gali Frazier, 3 Month Opio id Communication Nephrology and R.N. Monitoring Hypertension in [address] [place] [address] [place] [phone] [place], [place] [phone] (Work) [phone] Social History Tobacco Use Types Packs/Day Years [...] How often do you attend episcopal or voodoo Never 05/23/2022 services? Do you [...] this encounter Miscellaneous Notes Telephone Encounter - Gali Frazier R.N. - 05/25/2020 9:09 AM CST SUBJECTIVE CHIEF COMPLAINT / REASON FOR CALL 3 Month Opioid Monitoring Information Discussed Nephrology & Hypertension provider: Dr. Reese Date of last visit: 03/03/2020 Requested medication and dosage: Tramadol 50 mg take one tablet three times a day as needed for pain. Date of last renewal: 03/03/2020 Average number of tablets per day: 2-3 Number of tablets remainin Side effects: none Pain location and description: back Current pain ratin PEG score: 2 Controlled substance agreement on file: 03/03/2020 [place] Prescription Drug Monitoring Program (PDMP): Not a delegate Opioid Action Plan reviewed. The above information will be shared with the prescriber. PLAN Disposition/Recommendation: Patient will contact pharmacy about one week prior to needing a refill of his Tramadol. He will let us know if he has any questions or concerns in the future. Information/Education: patient/caller able to teach back Caller agreeable to plan of care: yes The following references were used: nursing clinical judgement [employer] PROFESSOR documented in this encounter Plan of Treatment Not on filedocumented as of this encounter Visit Diagnoses Not on filedocumented in this encounter Additional Health Concerns Assessment Noted Time PHQ-9 Depression Total Score: 3 03/03/2020 8:00 AM CDT documented as of this encounter
--- OUTSIDE RECORDS SUMMARY | 2022-06-04 18:10 | XMS_ITS | Encounter Summary ---
:1940 Author Organization [facility] Address [address] [place] [address] Care Team Providers Name Role Phone Unavailable Primary Care Provider Unavailable Reason for Visit Reason Comments Med Refill Encounter Details Date Type Department Care Team Description 11/18/2020 Refill Division of Nephrology and Antelmo White M.D. Med Refill Hypertension in [address] [phone] [place] [address] [place] [address] [phone] Social History Tobacco Use Types Packs/Day Years [...] 05/23/2022 relatives? How often do you attend hoahaoism or jehovah's witness Never 05/23/2022 services? Do you belong to any clubs or organizations such as No 05/23/2022 hoahaoism groups, unions, fraternal or athletic groups, or [...] place to sleep or slept in a skilled nursing (including now)? Education Answer Date Recorded What [...]
--- OUTSIDE RECORDS SUMMARY | 2022-06-04 18:10 | XMS_ITS | Encounter Summary ---
:1940 Author Organization [facility] Address [address] [place] [address] Care Team Providers Name Role Phone Unavailable Primary Care Provider Unavailable Encounter Details Date Type Department Care Team Description 08/27/2020 Orders Only Division of Nephrology and Ghulam Reese, [facility] [place] [address] [facility] [address] [place] [phone] (Wo rk) Social History Tobacco Use Types [...] How often do you attend restorationist or tenriism Never 05/23/2022 services? Do you [...]
--- OUTSIDE RECORDS SUMMARY | 2022-06-04 18:10 | XMS_ITS | Encounter Summary ---
:1940 Author Organization [facility] Address [address] [place] [address] Care Team Providers Name Role Phone Unavailable Primary Care Provider Unavailable Encounter Details Date Type Department Care Team Description 09/13/2020 Orders Only Division of Nephrology and Ghulam Reese, Pain Buttock Hypertension in [facility] [address] [facility] [address] [place] [phone] (Wo rk) Social History Tobacco Use Types [...] How often do you attend sabianism or yazidism Never 05/23/2022 services? Do you [...] of this encounter Visit Diagnoses Diagnosis Pain Buttock documented in this encounter Additional Health Concerns Assessment Noted Time PHQ-9 Depression Total Score: 3 03/03/2020 8:00 AM CDT documented as of this encounter
--- OUTSIDE RECORDS SUMMARY | 2022-06-04 18:10 | XMS_ITS | Encounter Summary ---
:1940 Author Organization [facility] Address [address] [place] [address] Care Team Providers Name Role Phone Unavailable Primary Care Provider Unavailable Reason for Visit Reason Comments Pre-visit Testing Orders [facility] 7 Encounter Details Date Type Department Care Team Description 10/22/2020 Clinical Communication Division of Antwan Reese-v isit Testing Nephrology and Antelmo Clayton M.D. Orders ([facility] 12/24) Hypertension in [address] [place], [place] [address] [place] [phone] [place], [place] [phone] (Work) [phone] Social History Tobacco Use Types Packs/Day Years [...] How often do you attend christian or orthodoxy Never 05/23/2022 services? Do you [...]
--- OUTSIDE RECORDS SUMMARY | 2022-06-04 18:10 | XMS_ITS | Encounter Summary ---
:1940 Author Organization [facility] Address [address] [place] [address] Care Team Providers Name Role Phone Unavailable Primary Care Provider Unavailable Reason for Referral Outpatient (Routine) - Closed Specialty Diagnoses / Procedures Referred By Contact Refer red To Contact Orthopedic Surgery Diagnoses Pain Hip Bilateral Antelmo Reese [place] M.D. [address] [place] [address] Referral ID Status Reason Start Date Expiration Date Visits Requ ested Visits Authorized [id number] Closed 10/01/2020 10/01/2021 1 1 Scheduling Instructions Ortho internal referral panel order, lisa ging before Consult visit Outpatient (Routine) - Closed Specialty Diagnoses / Procedures Referred By Contact Refer red To Contact Dermatology Diagnoses Pain Hip Bilateral Hypertension Personal History Hyperlipidemia Loss Memory Short Term Antelmo Reese M.D. [facility] [address] [place] [address] Referral ID Status Reason Start Date Expiration Date Visits Requ ested Visits Authorized [id number] Closed 10/01/2020 10/01/2021 1 1 Outpatient (Routine) - Closed Specialty Diagnoses / Procedures Referred By Contact Refer red To Contact Nephrology and Diagnoses Pain Hip Bilateral Hypertension Personal History Hyperlipidemia Loss Memory Short Term Antelmo Reese [facility] Hypertension MLindsey. [address] [place] [address] Referral ID Status Reason Start Date Expiration Date Visits Requ ested Visits Authorized [id number] Closed 10/01/2020 10/01/2021 1 1 Reason for Visit Reason Comments Pre-visit Testing Orders Encounter Details Date Type Department Care Team Description 10/01/2020 Clinical Communication Division of Hugh, Pre-v isit Testing Nephrology and Antelmo Clayton M.D. Orders Hypertension in [address] [place], [place] [address] [place] [phone] [place], [place] [phone] [address] (Work) [phone] Social History Tobacco Use Types Packs/Day Years [...] 05/23/2022 relatives? How often do you attend methodist or latter day Never 05/23/2022 services? Do you belong to any clubs or organizations such as No 05/23/2022 methodist groups, unions, fraternal or athletic groups, or [...] encounter Miscellaneous Notes Telephone Encounter - Adalgisa Guillen - 10/01/2020 3:08 PM CDT Patient would like to be seen for a possible right hip replacement. Please add appropriate orders and sign for December. Thank you documented in this encounter Plan of Treatment Scheduled Referrals Name Type Priority Associated Order Schedule Diagnoses Nephrology and Outpatient Referral Routine Pain Hip Delio ateral Expected: Hypertension office Hypertension 12/24/19 21 visit (clinic) Personal History (Approximate), Hyperlipidemia Expires: Loss Memory Short 12/24/2023 Term Dermatology - Skin Outpatient Referral Routine Pain Hip Bilateral Expected: check consult Hypertension 12/23/2020 (clinic) Personal History (Approximate), Hyperlipidemia Expires: Loss Memory Short 12/24/2023 Term Orthopedic Surgery - Outpatient Referral Routine Pain Hip Bila teral Expected: Hip non surgical 10/01/2020 consult (clinic) (Approximat e), Expires: 10/02/2023 documented as of this encounter Results DX Hip And Pelvis Right 2-3 Views (12/24/2020 8:54 AM CDT) Anatomical Region Laterality Modality Lower Extremity, Pelvis, Hip, Musculoskeletal RST LOS, Right Digital Radiography Musculoskeletal ARZ LOS, Muskuloskeletal FLA LOS Specimen (Source) Anatomical Collection Method Collection Time Re ceived Time Location / / Volume Laterality 12/24/2020 9:03 AM CDT Impressions 12/24/2020 9:04 AM CDT Mild degenerative arthritis right hip. Left LEAH. Degenerative changes lower lumbar spine. Osteopenia. Vascular calcification. Narrative 12/24/2020 9:04 AM CDT EXAM: ??DX HIP AND PELVIS RIGHT 2-3 VIEWS Procedure Note Toribio Rothman M.D. - 12/24/2020Formatt ing of this note might be different from the original. EXAM: DX HIP AND PELVIS RIGHT 2-3 VIEWS IMPRESSION: Mild degenerative arthritis right hip. L eft LEAH. Degenerative changes lower lumbar spine. Osteopenia. Vascular calcification. Antelmo Reese M.D. IMG DIAGNOSTIC IMAGING PROCE DURES Urinalysis with Microscopic: Urine, Clean Catch (12/24/2020 7:46 AM CDT) Patholo gist Method Time Signature Source Urine, 12/24/2020 DTL Urine, 8:02 AM CDT Clean Catch Color, U Yellow 12/24/2020 DTL 8:02 AM CDT Clarity, U Clear 12/24/2020 DTL 8:02 AM CDT Protein, U 6 <26 mg/dL 12/24/2020 DTL 9:23 AM CDT Protein/Osmola 0.18 <0.42 12/24/2020 DTL lity ratio 9:23 AM CDT Predicted 24 183 mg/24 h 12/24/2020 DTL Hr Protein 9:23 AM CDT Predicted 58-578 mg/24 h 12/24/2020 DTL Range 9:23 AM CDT Specimen Anatomical Collection Method Collection Time Receive d Time (Source) Location / / Volume Laterality Urine (Urine, 12/24/2020 7:46 AM 12/25/19 21 8:02 Clean Catch) CDT AM CDT Antelmo Reese M.D. LAB URINE ORDERABLES Performing Organization Address City/[facility]/ZIP Code Phon e Number [facility] - 200 [place], [place] [address] [facility] [place] [address] Laboratories-[facility] 200 [facility] BUN (Blood Urea Nitrogen) (12/24/2020 7:38 AM CDT) P athologist Signature BUN (Blood Urea 24 8 - 24 12/24/2020 DTL Nitrogen), S mg/dL 9:10 AM CDT Specimen Anatomical Collection Method Collection Time Receive d Time (Source) Location / / Volume Laterality Blood (Blood, 12/24/2020 7:38 AM 12/25/19 21 8:44 Venous) CDT AM CDT Antelmo Reese M.D. LAB BLOOD ADD-ON Performing Organization Address City/State/ZIP Code Phon e Number [facility] - [address] [place] [address] Laboratories-[address] (ABNORMAL) Creatinine with Estimated GFR (12/24/2020 7:38 AM CDT) Analysis Performed At Patho logist Time Signature Creatinine 1.46 (H) 0.74 - 12/24/2020 DTL 1.35 mg/dL 9:10 AM CDT eGFR-Non 44 (L) >=60 12/24/2020 DTL Black/ mL/min/BSA 9:10 AM CDT Vincentian Comment: ----ADDITIONAL INFORMATION---- Estimated GFR calculated using the 2009 CKD_EPI creatinine equation. eGFR-Black/ 51 (L) >=60 mL/min/BSA 2020 9:10 AM CDT DTL Comment: ----ADDITIONAL INFORMATION---- Estimated GFR calculated using the 2009 CKD_EPI creatinine equation. Specimen Anatomical Collection Method Collection Time Receive d Time (Source) Location / / Volume Laterality Blood (Blood, 12/24/2020 7:38 AM 12/25/19 8:44 Venous) CDT AM CDT Antelmo Reese M.D. LAB BLOOD ADD-ON Performing Organization Address City/State/ZIP Code Phon e Number [facility] - [address] [address] Laboratories-[address] (ABNORMAL) Glucose, Fasting (12/24/2020 7:38 AM CDT) P athologist Signature Glucose, P 107 (H) 70 - 100 12/24/2020 DTL mg/dL 9:08 AM CDT Last Intake 14 hr 12/24/2020 DTL 8:45 AM CDT Specimen Anatomical Collection Method Collection Time Receive d Time (Source) Location / / Volume Laterality Blood (Blood, 12/24/2020 7:38 AM 12/25/19 8:45 Venous) CDT AM CDT Antelmo Reese M.D. LAB BLOOD NON ADD-ON Performing Organization Address City/State/ZIP Code Phon e Number [facility] - 200 [place], [place] [address] [facility] [place] [address] Laboratories-[facility] 200 [facility] Bicarbonate (12/24/2020 7:38 AM CDT) P athologist Signature Bicarbonate, S 27 22 - 29 12/24/2020 DTL mmol/L 9:10 AM CDT Specimen Anatomical Collection Method Collection Time Receive d Time (Source) Location / / Volume Laterality Blood (Blood, 12/24/2020 7:38 AM 12/25/19 21 8:44 Venous) CDT AM CDT Antelmo Reese M.D. LAB BLOOD ADD-ON Performing Organization Address City/State/ZIP Code Phon e Number [facility] - 200 [place] [address] [facility] [place] [phone] [place] [address] (ABNORMAL) CBC without Differential (12/24/2020 7:38 AM CDT) Patholo gist Method Time Signature Hemoglobin 13.0 (L) 13.2 - 12/24/2020 DTL 16.6 g/dL 8:14 AM CDT Hematocrit 39.9 38.3 - 12/24/2020 DTL 48.6 % 8:14 AM CDT Erythrocytes 4.40 4.35 - 12/24/2020 DTL 5.65 8:14 AM CDT x10(12)/L MCV 90.7 78.2 - 12/24/2020 DTL 97.9 fL 8:14 AM CDT RBC Distrib Width 13.1 11.8 - 12/24/2020 DTL 14.5 % 8:14 AM CDT Platelet Count 183 135 - 317 12/24/2020 DTL x10(9)/L 8:14 AM CDT Leukocytes 7.4 3.4 - 9.6 12/24/2020 DTL x10(9)/L 8:14 AM CDT Specimen Anatomical Collection Method Collection Time Receive d Time (Source) Location / / Volume Laterality Blood (Blood, 12/24/2020 7:38 AM 12/25/19 21 8:02 Venous) CDT AM CDT Antelmo Reese M.D. LAB BLOOD ADD-ON Performing Organization Address City/State/ZIP Code Phon e Number [facility] - [address] [place], [place] [address] [facility] [place] [address] Laboratories-[address] Chloride (12/24/2020 7:38 AM CDT) athologist Signature Chloride, S 99 98 - 107 12/24/2020 DTL mmol/L 9:10 AM CDT Specimen Anatomical Collection Method Collection Time Receive d Time (Source) Location / / Volume Laterality Blood (Blood, 12/24/2020 7:38 AM 12/25/19 21 8:44 Venous) CDT AM CDT Antelmo Reese M.D. LAB BLOOD ADD-ON Performing Organization Address City/State/[facility] Phon e Number [facility] - [address] Lipid Panel (12/24/2020 7:38 AM CDT) athologist Signature Cholesterol, 127 mg/dL 12/24/2020 DTL Total 9:10 AM CDT Comment: ----REFERENCE VALUE---- Desirable: < 200 Borderline high: 200 - 239 High: > or = 240 Triglycerides 76 mg/dL 12/24/2020 9:10 AM CDT DTL Comment: ----REFERENCE VALUE---- Normal: <150 Borderline high: 150-199 High: 200-499 Very high: > or =500 Cholesterol, HDL, S 67 >=40 mg/dL 12/24/2020 9:10 AM CDT DTL Calculated LDL 45 mg/dL 12/24/2020 9:10 AM CDT DT L Comment: ----REFERENCE VALUE---- Desirable: <100 Above Desirable: 100-129 Borderline high: 130-159 High: 160-189 Very high: > or =190 Cholesterol, Non-HDL, Calculated 60 mg/dL 021 9:10 AM CDT DTL Comment: ----REFERENCE VALUE---- Desirable: <130 Above Desirable: 130-159 Borderline high: 160-189 High: 190-219 Very high: > or =220 Specimen Anatomical Collection Method Collection Time Receive d Time (Source) Location / / Volume Laterality Blood (Blood, 12/24/2020 7:38 AM 12/25/19 8:44 Venous) CDT AM CDT Antelmo Reese M.D. LAB BLOOD ADD-ON Performing Organization Address City/State/ZIP Code Phon e Number [facility] - [address] Sodium (12/24/2020 7:38 AM CDT) P athologist Signature Sodium, S 136 135 - 145 12/24/2020 9:10 DTL mmol/L AM CDT Specimen Anatomical Collection Method Collection Time Receive d Time (Source) Location / / Volume Laterality Blood (Blood, 12/24/2020 7:38 AM 12/25/19 8:44 Venous) CDT AM CDT Antelmo Reese M.D. LAB BLOOD ADD-ON Performing Organization Address City/[facility]/ZIP Code Phon e Number [facility] - [address] Potassium (12/24/2020 7:38 AM CDT) P athologist Signature Potassium, S 4.3 3.6 - 5.2 12/24/2020 DTL mmol/L 9:10 AM CDT Specimen Anatomical Collection Method Collection Time Receive d Time (Source) Location / / Volume Laterality Blood (Blood, 12/24/2020 7:38 AM 12/25/19 8:44 Venous) CDT AM CDT Antelmo Reese M.D. LAB BLOOD ADD-ON Performing Organization Address City/State/ZIP [facility] Phon e Number [facility] [address] documented in this encounter Visit Diagnoses Diagnosis Pain Hip Bilateral - Primary Hypertension Personal History Hyperlipidemia Loss Memory Short Term Pain Hip Bilateral documented in this encounter Additional Health Concerns Assessment Noted Time PHQ-9 Depression Total Score: 3 03/03/2020 8:00 AM CDT documented as of this encounter
--- OUTSIDE RECORDS SUMMARY | 2022-06-04 18:10 | XMS_ITS | Encounter Summary ---
:[address] [facility] Address [address] [place] [address] Care Team Providers Name Role Phone Unavailable Primary Care Provider Unavailable Encounter Details Date Type Department Care Team Description 12/24/2020 Hospital Encounter Department of Antelmo Reese Prostatic Laboratory Medicine R, MLavelle Hyperplasia Without and Pathology, [address] [place] [phone] [place] [address] [place], [place] (Work) [address] [phone] Social History Tobacco Use Types Packs/Day Years [...] How often do you attend islam or mandaeism Never 05/23/2022 services? Do you [...] Name Priority Date/Time Associated Diagnosis Comme nts PROSTATE-SPECIFIC Routine 12/24/2020 4:14 PM Benign Prostatic Results for this AG (PSA) CDT Hyperplasia Without procedur e are in DIAGNOSTIC, S Obstruction the results section. documented in this encounter Results PSA (Prostate-Specific Antigen), Diagnostic (12/24/2020 4:14 PM CDT) P athologist Signature Prostate-Specif 0.74 <=7.2 ng/mL 12/24/2020 DTL ic Ag 5:23 PM CDT Comment: ----ADDITIONAL INFORMATION---- The testing [...] / / Volume Laterality Blood (Blood, 12/24/2020 4:14 PM 12/25/19 4:55 Venous) CDT PM CDT Antelmo Reese M.D. LAB BLOOD ADD-ON Performing Organization Address City/State/ZIP Code Phon e Number [facility] - [address] [place], [place] [address] [facility] [place] [place] [address] Laboratories-[facility] [address] documented in this encounter Visit Diagnoses Diagnosis Benign Prostatic Hyperplasia Without Obs truction documented in this encounter Additional Health Concerns Assessment Noted Time PHQ-9 Depression Total Score: 3 03/03/2020 8:00 AM CDT documented as of this encounter
--- OUTSIDE RECORDS SUMMARY | 2022-06-04 18:10 | XMS_ITS | Encounter Summary ---
:1940 Author Organization [facility] Address [address] [place] [address] Care Team Providers Name Role Phone Unavailable Primary Care Provider Unavailable Reason for Visit Reason Comments Med Refill Encounter Details Date Type Department Care Team Description 03/03/2020 Refill Division of Nephrology and Schne ll, Angela Palacios R.N. Med Refill Hypertension in [address] [phone] [place] [address] [place] [address] Social History Tobacco Use Types Packs/Day [...] 05/23/2022 relatives? How often do you attend anabaptism or presybeterian Never 05/23/2022 services? 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
--- OUTSIDE RECORDS SUMMARY | 2022-06-04 18:10 | XMS_ITS | Encounter Summary ---
:1940 Author Organization [facility] Address [address] [place] [address] Care Team Providers Name Role Phone Unavailable Primary Care Provider Unavailable Reason for Visit Reason Comments Med Refill Encounter Details Date Type Department Care Team Description 09/12/2020 Refill Division of Nephrology and Antelmo White M.D. Med Refill Hypertension in [address] [phone] [place] [address] [place] [address] [phone] Social History Tobacco Use Types Packs/Day Years [...] How often do you attend methodist or gnosticist Never 05/23/2022 services? Do you belong to [...] Telephone Encounter - Antelmo Reese M.D. - 09/13/2020 5:03 PM CDT . Telephone Encounter - Antelmo Reese M.D. - 09/13/2020 4:45 PM CDT Hello. I cannot sign it in its current form. The indication should be chronic pain. Thank you. Telephone Encounter - Roseann Desouza RKiara - 09/13/2020 4:38 PM CDT Prescription forwarded to provider for approval. Outside RN protocol due to being a controlled substance. documented in this encounter Plan of Treatment Not on filedocumented as of this encounter Visit Diagnoses Diagnosis Pain Buttock documented in this encounter Additional Health Concerns Assessment Noted Time PHQ-9 Depression Total Score: 3 03/03/2020 8:00 AM CDT documented as of this encounter
--- OUTSIDE RECORDS SUMMARY | 2022-06-04 18:10 | XMS_ITS | Encounter Summary ---
:1940 Author Organization [facility] Address [address] [place] [address] Care Team Providers Name Role Phone Unavailable Primary Care Provider Unavailable Encounter Details Date Type Department Care Team Description 12/24/2020 Hospital Encounter Department of Hugh, Pain Hip Bilateral; Laboratory Medicine Wade Peterson Hypertension Personal History; and Pathology, [address] [place] [address] Hyperlipidemia; [facility], in [place], [place] Loss Me carlos Short Term [place], [place] [address] [place] [address] [place], [place] (Work) [phone] Social History Tobacco Use Types Packs/Day Years [...] How often do you attend adventist or denominational Never 05/23/2022 services? Do you [...] mg by mouth 0 mg tablet daily. POLYETHYLENE GLYCOL 3350 Take 1 g by mouth 0 10/24 ORAL daily. MiraLAX powder guaiFENesin (HUMIBID 3) 0 09/23/2020 0 01/27/2022 400 mg tablet traMADoL (ULTRAM) 50 mg Take 1 tablet [...] Associated Comments Diagnosis LIPID PANEL, S Routine 12/24/2020 7:38 AM Pain Hip Bila teral Results for this CDT Hypertension procedure are i n Personal History the results Hyperlipidemia section. Loss Memory Short Term CBC WITHOUT Routine 12/24/2020 7:38 AM Pain Hip Bila teral Results for this DIFFERENTIAL, B CDT Hypertension procedure ar e in Personal History the results Hyperlipidemia section. Loss Memory Short Term BUN (BLOOD UREA Routine 12/24/2020 7:38 AM Pain Hip Bila teral Results for this NITROGEN), S/P CDT Hypertension procedure are in Personal History the results Hyperlipidemia section. Loss Memory Short Term SODIUM, S/P Routine 12/24/2020 7:38 AM Pain Hip Bila teral Results for this CDT Hypertension procedure are i n Personal History the results Hyperlipidemia section. Loss Memory Short Term POTASSIUM, S/P Routine 12/24/2020 7:38 AM Pain Hip Bila teral Results for this CDT Hypertension procedure are i n Personal History the results Hyperlipidemia section. Loss Memory Short Term GLUCOSE, FASTING, Routine 12/24/2020 7:38 AM Pain Hip Bi lateral Results for this S/P CDT Hypertension procedure are i n Personal History the results Hyperlipidemia section. Loss Memory Short Term CREATININE WITH Routine 12/24/2020 7:38 AM Pain Hip Bila teral Results for this EGFR, S/P CDT Hypertension procedure are i n Personal History the results Hyperlipidemia section. Loss Memory Short Term CHLORIDE, S/P Routine 12/24/2020 7:38 AM Pain Hip Bila teral Results for this CDT Hypertension procedure are i n Personal History the results Hyperlipidemia section. Loss Memory Short Term BICARBONATE, B/S/P Routine 12/24/2020 7:38 AM Pain Hip B ilateral Results for this CDT Hypertension procedure are i n Personal History the results Hyperlipidemia section. Loss Memory Short Term documented in this encounter Results BUN (Blood Urea Nitrogen) (12/24/2020 7:38 AM [...] BLOOD ADD-ON Performing Organization Address City/[facility]/ZIP Code Phon e Number [facility] - 200 [place], [place] [address] [facility] [place] [place] [address] Laboratories-[address] (ABNORMAL) Creatinine with Estimated GFR (12/24/2020 7:38 AM CDT) Analysis Performed At Patho logist Time Signature Creatinine 1.46 (H) 0.74 - 12/24/2020 DTL 1.35 mg/dL 9:10 AM CDT eGFR-Non 44 (L) >=60 12/24/2020 DTL Black/ mL/min/BSA 9:10 AM CDT Namibian Comment: ----ADDITIONAL INFORMATION---- Estimated GFR calculated using [...] BLOOD ADD-ON Performing Organization Address City/[facility]/ZIP Code Phon e Number [facility] - 200 [place], [place] [address] [facility] [place] [place] [address] Laboratories-[address] (ABNORMAL) Glucose, Fasting (12/24/2020 7:38 AM [...] Organization Address City/State/ZIP Code Phon e Number [facility] - 200 [place], [place] [address] [facility] [place] [place] [address] Laboratories-[address] Bicarbonate (12/24/2020 7:38 AM CDT) P athologist Signature Bicarbonate, S 27 22 - 29 12/24/2020 DTL mmol/L 9:10 AM CDT Specimen Anatomical Collection Method Collection Time Receive d Time (Source) Location / / Volume Laterality Blood (Blood, 12/24/2020 7:38 AM 12/25/19 8:44 Venous) CDT AM CDT Antelmo Reese M.D. LAB BLOOD ADD-ON Performing Organization Address City/State/ZIP Code Phon e Number [facility] - 200 [place], [place] [address] [place] [address] [facility]-[address] (ABNORMAL) CBC without Differential (12/24/2020 7:38 AM [...] BLOOD ADD-ON Performing Organization Address City/[facility] Phon e Number [facility] - 200 [place], [place] [address] [facility] [place] [address] Laboratories-[address] Chloride (12/24/2020 7:38 AM CDT) athologist Signature Chloride, S 99 98 - 107 12/24/2020 DTL mmol/L 9:10 AM CDT Specimen Anatomical Collection Method Collection Time Receive d Time (Source) Location / / Volume Laterality Blood (Blood, 12/24/2020 7:38 AM 12/25/19 8:44 Venous) CDT AM CDT Antelmo Reese M.D. LAB BLOOD ADD-ON Performing Organization Address City/[facility] Phon e Number [facility] - 200 [place], [place] [address] [place] [address] Lipid Panel (12/24/2020 7:38 AM CDT) [...] BLOOD ADD-ON Performing Organization Address City/[facility]/ZIP Code Phon e Number [facility] - [address] Sodium (12/24/2020 7:38 AM CDT) P athologist Signature Sodium, S 136 135 - 145 12/24/2020 9:10 DTL mmol/L AM CDT Specimen Anatomical Collection Method Collection Time Receive d Time (Source) Location / / Volume Laterality Blood (Blood, 12/24/2020 7:38 AM 12/25/19 8:44 Venous) CDT AM CDT Antelmo Reese M.D. LAB BLOOD ADD-ON Performing Organization Address City/[facility]/ZIP Code Phon e Number [facility] - [address] Potassium (12/24/2020 7:38 AM CDT) P athologist Signature Potassium, S 4.3 3.6 - 5.2 12/24/2020 DTL mmol/L 9:10 AM CDT Specimen Anatomical Collection Method Collection Time Receive d Time (Source) Location / / Volume Laterality Blood (Blood, 12/24/2020 7:38 AM 12/25/19 8:44 Venous) CDT AM CDT Antelmo Reese M.D. LAB BLOOD ADD-ON Performing Organization Address City/[facility]/ZIP [facility] Phon e Number [facility] - [address] documented in this encounter Visit Diagnoses Diagnosis Pain Hip Bilateral Hypertension Personal History Hyperlipidemia Loss Memory Short Term documented in this encounter Additional Health Concerns Assessment Noted Time PHQ-9 Depression Total Score: 3 03/03/2020 8:00 AM CDT documented as of this encounter
--- OUTSIDE RECORDS SUMMARY | 2022-06-04 18:10 | XMS_ITS | Encounter Summary ---
:1940 Author Organization [facility] Address [address] [place] [address] Care Team Providers Name Role Phone Unavailable Primary Care Provider Unavailable Reason for Visit Reason Comments Med Refill Encounter Details Date Type Department Care Team Description 11/03/2020 Refill Division of Nephrology and Antelmo White M.D. Med Refill Hypertension in [address] [address] [place] [address] [place] [address] [phone] Social History Tobacco Use Types Packs/Day Years [...] 05/23/2022 relatives? How often do you attend nondenominational or zoroastrianism Never 05/23/2022 services? Do you belong to any clubs or organizations such as No 05/23/2022 nondenominational groups, unions, fraternal or athletic groups, or [...] Diagnoses Diagnosis Pain Hip Bilateral - Primary Pain Buttock Other Chronic Pain documented in this encounter Additional Health Concerns Assessment Noted Time PHQ-9 Depression Total Score: 3 03/03/2020 8:00 AM CDT documented as of this encounter
--- OUTSIDE RECORDS SUMMARY | 2022-06-04 18:10 | XMS_ITS | Encounter Summary ---
:1940 Author Organization [facility] Address [address] [place] [address] Care Team Providers Name Role Phone Unavailable Primary Care Provider Unavailable Reason for Visit Reason Comments Med Refill Encounter Details Date Type Department Care Team Description 12/08/2020 Refill Division of Nephrology and Antelmo White M.D. Med Refill Hypertension in [address] [address] [place] [address] [place] [address] [phone] Social History Tobacco Use Types Packs/Day Years [...] often do you attend roman catholic or jain Never 05/23/2022 services? Do you [...]
--- OUTSIDE RECORDS SUMMARY | 2022-06-04 18:10 | XMS_ITS | Encounter Summary ---
:1940 Author Organization [facility] Address [address] [place] [address] Care Team Providers Name Role Phone Unavailable Primary Care Provider Unavailable Reason for Referral Physical Therapy (Routine) - Closed Specialty Diagnoses / Procedures Referred By Contact Refer red To Contact Diagnoses Bursitis Trochanteric Right Sita Ralph M.D. [facility] Procedures PT Evaluate and treat [address] [place] [id number] Referral ID Status Reason Start Date Expiration Date Visits Requ ested Visits Authorized [id number] Closed 12/24/2020 12/24/2021 12 12 Outpatient (Routine) - Closed Specialty Diagnoses / Procedures Referred By Contact Refer red To Contact Diagnoses Bursitis Trochanteric Right Sita Ralph M.D. [facility] Procedures ORS US-Guided aspiration/injection [address] [place] [address] [id number] Referral ID Status Reason Start Date Expiration Date Visits Requ ested Visits Authorized [id number] Closed 12/24/2020 12/24/2021 1 1 Reason for Visit Reason Comments Pain Pain Outpatient (Routine) - Closed Specialty Diagnoses / Procedures Referred By Contact Refer red To Contact Orthopedic Surgery Diagnoses Pain Hip Bilateral Antelmo Reese, [facility] SebastienD. [address] [place] [address] Referral ID Status Reason Start Date Expiration Date Visits Requ ested Visits Authorized [id number] Closed 10/01/2020 10/01/2021 1 1 Encounter Details Date Type Department Care Team Description 12/24/2020 Comprehensive Visit Department of Sita Ralph itis Trochanteric Right (Primary Dx); Orthopedic Surgery Yaw Monique Pain Hip Bilateral; in [place], [facility] Chelsea Hilliard r Gluteal Tendinitis Right Hip; [place], [place] Arthroplasty Total Hip Repla cement Status Post Left [address] [facility] [address] [place], [place] [phone] [address] (Work) [phone] Social History Tobacco Use Types Packs/Day Years [...] How often do you attend congregational or religion Never 05/23/2022 services? Do you belong to [...] Taken Comments Blood Pressure - - Pulse - - Temperature - - Respiratory Rate - - Oxygen Saturation - - Inhaled Oxygen Concentration - - Weight 88.7 kg (195 lb 8.8 oz) 12/24/2020 10:59 AM CDT Height 181 cm (5' 11.26) 12/24/2020 10:59 AM CDT Body Mass Index 27.07 12/24/2020 10:59 AM CDT documented in this encounter Consult Notes Sita Ralph M.D. - 12/24/2020 11:15 AM CDT SUBJECTIVE CHIEF COMPLAINT / REASON FOR VISIT Familia Merrill is a 80 y.o. male who [facility] evaluation of R hip pain. Patient has been sent by Antelmo Reese M.D. Division of Nephrology and Hypertension due to pain hip bilateral. HISTORY OF PRESENT ILLNESS According to note by Dr. Cash in 03/03/2020 his health problems include: 1. 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 2. ??Coronary heart disease. ?? He rarely has chest pain. 3. ??Chronic bilateral buttock pain. ?? X-rays of his pelvis show no significant abnormality. He takes tramadol. 4. ??Chronic insomnia. Zolpidem works well. 5. ??Hyperlipidemia 6. ??Benign prostatic hyperplasia. ?? 7. ??Left total hip arthroplasty. 8. ??Hypertension. 9. Peripheral arterial disease. Per review of Epic he underwent a left total hip arthroplasty by Dr. Arteaga in 2013. He had groin pain prior to the left total hip arthroplasty. Most recent follow-up was in 2016. His [id number] also went underwent a total hip arthroplasty by Dr. Arteaga was pleased with the results. For several years Familia has had right lateral hip pain. Character is aching. It occurs after activities such as walking a mile for exercise. At night it interferes with sleep since the since it is painful if he rolls on his right side. There is no numbness or tingling of his lower extremities. There is no groin pain. He also has chronic buttock pain which is manifest as pain with sitting. Previous treatment: Tramadol ES Tylenol Exercises listed in social history below. I reviewed medications and allergies in [facility]. REVIEW OF SYSTEMS Answers for HPI/ROS submitted by the patient on 12/17/2020 No general issues: Yes No eye issues: Yes No ENT issues: Yes No heart issues: Yes Wheezing: Yes Constipation: Yes Pain or stiffness in the joints: Yes Back pain/stiffness: Yes No skin issues: Yes Light-headedness: Yes No mental health issues: Yes No blood/lymph issues: Yes Frequent urination: Yes Difficulty urinating: Yes He notes that his memory is not as good as it was in the past. 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 BIOPSY Right 01/06/2005 >Shave Biopsy (lesion of unknown origin, right yarsanism). ??? HIP ARTHROPLASTY Left 09/09/2013 >Left total [...] eye, with review of intraocular power calculation. FAMILY HISTORY Family History Problem Relation Age of Onset ??? Blindness Neg Hx ??? Glaucoma Neg Hx ??? Macular degeneration Neg Hx ??? Vision loss Neg Hx SOCIAL HISTORY Social History Socioeconomic History ??? Marital status: Spouse name: Not on file ??? Number of children: Not on file ??? Years of education: Not on file ??? Highest education level: 12th grade Occupational History ??? Not on file Tobacco Use ??? Smoking status: Former Smoker Packs/day: 0.00 Quit date: 2004 Years since quittin.5 ??? Smokeless tobacco: Never Used Substance and Sexual Activity ??? Alcohol use: No Comment: none since 2004 ??? Drug use: No ??? Sexual activity: Defer Other Topics Concern ??? Not on file Social History Narrative 12/2020: He lives in [place], [place]. His is Roseann Former smoker. 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 Attends Episcopalian Services: Never ??? Active Member of Clubs or Organizations: Not on file ??? Attends Club or Organization Meetings: Never ??? Marital Status: Intimate Partner Violence: ??? Fear of Current or Ex-Partner: ??? Emotionally Abused: ??? Physically Abused: ??? Sexually Abused: OBJECTIVE PHYSICAL EXAMINATION General: Alert, healthy appearing BMI: Body mass index is 27.07 kg/m??. Wt Readings from Last 1 Encounters: 12/24/20 88.7 kg Vascular: Tibialis pulse palpable bilateral Neurologic: Sensation: light touch intact at L3 - S1 dermatomes Musculoskeletal: Gait: slow, slightly shuffling Alignment of lower extremities: normal HIPS Tenderness: R greater trochanter Passive range of motion Right Internal rotation with hip flexed 90 degrees No pain External rotation with hip flexed 90 degrees No pain Strength Right Left Hip flexion (seated) 5/5 5/5 Hip abduction (seated) 5/5 5/5 Hip adduction (seated) 5/5 5/5 Knee extension 5/5 5/5 Hip joint provocative maneuvers Right [facility] (resisted hip flexion with knee extended causes pain at hip joint) No Log Roll (passive IR & ER of extended hip causes pain at joint) No DIAGNOSTICS IMAGES: I interpreted the following imaging studies: Radiographs were anterior-posterior pelvic view, anterior-posterior view of bilateral and cross table lateral of right hip. There is a preoperative radiographs in 2012 including both hips at that time the left hip osteoarthritis is much more severe than the current right hip osteoarthritis. On current radiographs there is mild narrowing of the right hip articular space. There is vascular calcification. Compared with radiographs in 2016 there is no change in position of total hip arthroplasty components on development of lucencies at the bone component interface. Radiologist's report: EXAM: DX HIP AND PELVIS RIGHT 2-3 VIEWS ??Mild degenerative arthritis right hip. Left LEAH. Degenerative changes lower lumbar spine. Osteopenia. Vascular calcification. DIAGNOSTIC STUDIES: Lab Results Component Value Date WBC 7.4 12/24/2020 HGB 13.0 (L) 12/24/2020 HCT 39.9 12/24/2020 MCV 90.7 12/24/2020 PLT 183 12/24/2020 INR Date Value Ref Range Status 09/23/2014 1.0 0.8 - 1.2 Final ASSESSMENT / PLAN 1. Right lateral hip pain due to gluteal tendinopathy and/or greater trochanteric bursitis. Right hip osteoarthritis remains mild and does not appear to be symptomatic 2. Pain at the right buttock with sitting which could be due to ischial bursitis or proximal hamstring tendinitis. 3. Status post left total hip arthroplasty by Dr. Arteaga in 2013. It is doing well. 4. Impaired short term memory RECOMMENDATIONS: I reviewed radiographs with him and showed him how the right hip osteoarthritis is mild compared with severe osteoarthritis prior to undergoing a left total hip arthroplasty. I provided him with a diagram showing the likely pain generators and a booklet regarding lateral hip pain. Following a discussion of treatment options he prefers: 1. Would like to undergo physical therapy here at [facility] rather than closer to home at [place]. The goal will be to decrease pain, in improve strength and flexibility of lower extremities and improved core strengthening exercises. I suggest he try physical therapy, including home exercises forit is at least 6 weeks before deciding if it is helpful or not. Written instructions and diagrams may be needed since impaired short-term memory is present. 2. He would like to undergo ultrasound-guided corticosteroid injection of the right greater trochanteric bursa in attempt to decrease pain. If it is helpful it could be repeated at 4 months or greater intervals. 3. If he does not improve with the injection and with at least 6 weeks of physical therapy/home exercises, he is welcome to return for follow-up appointment. 4. Hopefully, with the above treatment he could discontinue tramadol. All questions were answered. Time spent reviewing documents was 10 minutes. Jchh-da-dich time was 35 minutes. Electronically signed by: Sita Ralph M.D. [facility] [address] [address] [place] phone [phone] Appointments [phone] FAX [phone] 12/24/20 11:30 AM CDT cc: Dr. Arteaga documented in this encounter Plan of Treatment Not on filedocumented as of this encounter Results DE ARTHCS ASP/INJ MJR JT W US (12/24/2020 3:36 PM CDT) Specimen (Source) Anatomical Location Collection Method / Collectio n Time Received Time / Laterality Volume Narrative MMODAL - 12/24/2020 3:36 PM CDT Kierra Shea M.D. ? 12/24/2020 ??9:35 PM Hip site - R greater troch bursa : injec tion only Date/Time: 12/24/2020 3:36 PM Performed by: Kierra Shea M.D. Authorized by: Sita Ralph M.D. Care team members present 1. Kierra Shea M.D. 2. Robin Koehler D.O. 3. Analilia Callahan PROCEDURE DETAILS Procedure Location hip Hip site: R greater troch bursa Site prep: patient was prepped and drape d in usual sterile fashion ?? Patient position: side-lying Procedural approach: posterolateral Procedure performed: injection only Needle gauge: 22 G, length: 2.5 in Image guidance Ultrasound The use of direct ultrasound visualizati on of the needle was required (rather than a non-guided injection) to ensure accurate injection delivery and to maximize clinical benefit beyond that obtained with a non-guided injection. ??Additionally, there can be diagnostic specificity when evaluating effectiveness of the injectio n, and for safety purposes to minimize risk of bleeding or injury to s urrounding structures. A syringe containing 2cc of ropivacaine 0.2% was utilized for subcutaneous anesthesia as well as to drive the needl e tip to target location. Good flow visualized at the subgluteus maximu s bursa. Then, the syringe was exchanged for a mixture containing 1cc r opivacaine 0.2% and 1cc depo-medrol 40mg/cc which was injected a t the target location. Again, good flow was visualized. Successful injectio n. Images saved: yes Pre-procedure image guidance used to loc tee target and identify at risk structures, and plan approach and site w as marked using indelible marker. Probe: linear mid-frequency Needle approach: posterior to anterior Ultrasound visualization: in-plane Procedural Medication The following medications were administe red at the target site(s) Local anesthetic: 1 mL ropivacaine (PF) 2 mg/mL (0.2 %); 2 mL ropivacaine (PF) 2 mg/mL (0.2 %) Corticosteroid: 40 mg methylPREDNISolone acetate 40 mg/mL [...] procedu ral pause. PRE-PROCEDURE DETAILS Procedure purpose: therapeutic Appropriate hand hygiene, gown, cap, mas k, protective eyewear, sterile gloves, skin preparation, sterile drape, and strict aseptic technique were utilized as applicable for the procedure . Site preparation: chlorhexidine SEDATION / ANESTHESIA Anesthesia method: local infiltration Local infiltrate type: see MAR for dose, ropivacaine POST-PROCEDURE DETAILS Procedure completed successfully: yes Complications: no apparent complications ?? Post-procedure instructions: avoid stren uous activity for 2 days, avoid submersion of procedure site for 48 hour s and post-procedure activity instructions provided Discharge instructions: ice area as need ed for comfort, pain management instructions, follow-up with ordering pr ovider and medications and side effects Comments Analilia Callahan documented this note on be half of Kierra Shea M.D., who performed the service(s). ATTESTATION STATEMENT A resident or fellow participated in the procedure, and the labor relations consultant was present for the entire procedure. Sita Ralph M.D. PROCEDURE/MINOR SURGICAL ORD ERABLES Performing Organization Address City/State/ZIP Code Phon e Number MMODAL MMODAL NA documented in this encounter Visit Diagnoses Diagnosis Bursitis Trochanteric Right - Primary Pain Hip Bilateral Gluteal Tendinitis Right Hip Arthroplasty Total Hip Replacement Statu s Post Left Bursitis Trochanteric Right documented in this encounter Additional Health Concerns Assessment Noted Time PHQ-9 Depression Total Score: 3 03/03/2020 8:00 AM CDT documented as of this encounter
--- OUTSIDE RECORDS SUMMARY | 2022-06-04 18:10 | XMS_ITS | Encounter Summary ---
:1940 Author Organization [facility] Address [address] [place] [address] Care Team Providers Name Role Phone Unavailable Primary Care Provider Unavailable Encounter Details Date Type Department Care Team Description 09/14/2020 Orders Only Division of Nephrology and Ghulam Reese, Pain Buttock Hypertension in [facility] [address] [facility] [address] [place] [address] [phone] (Wo rk) Social History Tobacco Use Types [...] 05/23/2022 relatives? How often do you attend taoism or amish Never 05/23/2022 services? Do you belong to any clubs or organizations such as No 05/23/2022 taoism groups, unions, fraternal or athletic groups, or [...]
--- OUTSIDE RECORDS SUMMARY | 2022-06-04 18:10 | XMS_ITS | Encounter Summary ---
:1940 Author Organization [facility] Address [address] [place] [address] Care Team Providers Name Role Phone Unavailable Primary Care Provider Unavailable Reason for Visit Outpatient (Routine) - Closed Specialty Diagnoses / Procedures Referred By Contact Refer red To Contact Dermatology Diagnoses Pain Hip Bilateral Hypertension Personal History Hyperlipidemia Loss Memory Short Term Antelmo Reese M.D. [place] [address] [place] [phone] Referral ID Status Reason Start Date Expiration Date Visits Requ ested Visits Authorized [id number] Closed 10/01/2020 10/01/2021 1 1 Encounter Details Date Type Department Care Team Description 12/24/2020 Comprehensive Visit Department of Hailey Rodríguez Actinic (Primary Dx); Dermatology in , [facility], C.N.P., Screening Examination Skin Cancer; [place], D.N.P. Nevi Multiple; [place] [address] [facility] Dermatoheliosis; [address] [place], [place] Angioma Antonio; [place] [address] Keratosis Seborrheic; [id number] Neurofibroma; Lipoma; [phone] Keratosis Sebor rheic Inflamed; (Fax) Nevus Atypical Social History Tobacco Use Types Packs/Day Years [...] How often do you attend adventist or mosque Never 05/23/2022 services? Do you [...] documented as of this encounter Consult Notes Hailey Rodríguez, TASHA, C.N.P., D.N.P. - 12/24/2020 10:00 AM CDT REFERRED BY Antelmo Reese M.D. CHIEF COMPLAINT/REASON FOR VISIT History of atypical nevus Supervising fitness consultant, Dr. Toribio Scott, was immediately available, but consultation was not required. HISTORY OF PRESENT ILLNESS Mr. Familia Merrill is a pleasant 80 y.o. male who presents today for a full skin cancer screening examination. The patient has no personal history of skin cancer, but has had a severely atypical nevus found on shave biopsy on the right upper abdomen, 04/12/2018, and excised 06/27/2018. His last evaluation in [facility] was 03/04/2020, at which time 3 actinic keratoses on the forehead and right chest were treated with liquid nitrogen cryotherapy. Other skin findings were benign at that time. Today, he reports a spot of concern on the left jawline that is raised and rough. There are no bothersome symptoms associated with this. Mr. Merrill states he does use sunscreen, not generously, but is not outside very much anymore. No Known Allergies PAST DERMATOLOGIC HISTORY Negative [...] exam, consistent with seborrheic keratoses. Various 1-2 mm pink to red dome-shaped papules noted on the trunk, upper extremities, and lower extremities consistent with antonio angiomas. The spot of concern on the left jawline is a dark brown waxy, stuck-on appearing plaque consistent with a seborrheic keratosis. On the right forearm is a 3 cm x 2 cm soft, mobile, subcutaneous nodule consistent with a lipoma. Scattered throughout the exam were skin colored, soft-domed papule with a buttonhole sign consistent with neurofibromas. On the forehead brittany 5 cm x 4 cm soft, mobile, subcutaneous nodule, consistent with a lipoma. Involving the left earlobe, left roman catholic, left forehead, midline forehead, and right preauricular cheek are red macules with overlying adherent scale in sandpaper- like texture, consistent with actinic keratosis. IMPRESSION/REPORT/PLAN #1 Skin cancer screening examination #2 [...] sooner for any concerns. #4 Actinic keratosis x5 Actinic keratosis are pre-cancerous skin growths caused by sun exposure. Treatment is recommended. Atotal of 5 actinic keratosis were treated with liquid nitrogen. Location: left earlobe, left roman catholic,left forehead, midline forehead, and right preauricular cheek. CONSENT Discussed [...] consent was obtained.We treated a total of 5 lesion(s) with two 15-second freeze-thaw cycles of liquid nitrogen cryotherapy. The patient tolerated the procedure well. Aftercare instructions were provided in written and verbal form to the patient. Should any of these lesions recur, the patient should return for biopsy or further evaluation. Wound care was discussed. Patient offered educational material. #5 Inflamed seborrheic keratosis I treated 1 inflamed seborrheic keratosis on the left jawline with liquid nitrogen cryotherapy. After explaining the procedure, discussing the associated risks, benefits, and alternatives, and obtaining verbal informed consent, the lesion(s) underwent treatment with liquid nitrogen cryotherapy in the standard fashion. Wound care was discussed. We did discuss that given the size and thickness of this lesion may not be completely treated with 1round of cryotherapy may require subsequent treatments to be completely removed. #6 Lipoma, right forearm and right forehead We [...] removal he will follow-up. Measurements taken today. #7 Seborrheic keratoses #8 Antonio angiomas #9 Neurofibromas The benign nature of the skin lesion(s) was discussed with the patient. No treatment is required. I recommend continued observation. Should symptoms or changes develop related to this condition, I would recommend a return visit for reassessment. #10 Benign-appearing nevi The ABCDE criteria for melanoma [...] patient expressed understanding of thecontent. Scribed for Danisha Rodríguez APRN, C.N.P., D.N.P. by Daiana Caldwell, on 12/24/2020, 6:34 AM CDT. I personally performed the services described in this documentation, as scribed in my presence, and it is both accurate and complete. documented in this encounter Plan of Treatment Not on filedocumented as of this encounter Visit Diagnoses Diagnosis Keratosis Actinic - Primary Screening Examination Skin Cancer Nevi Multiple Dermatoheliosis Angioma Antonio Keratosis Seborrheic Neurofibroma Lipoma Keratosis Seborrheic Inflamed Nevus Atypical documented in this encounter Additional Health Concerns Assessment Noted Time PHQ-9 Depression Total Score: 3 03/03/2020 8:00 AM CDT documented as of this encounter
--- OUTSIDE RECORDS SUMMARY | 2022-06-04 18:10 | XMS_ITS | Encounter Summary ---
:1940 Author Organization [facility] Address [address] [place] [address] Care Team Providers Name Role Phone Unavailable Primary Care Provider Unavailable Encounter Details Date Type Department Care Team Description 12/13/2020 Orders Only Division of Nephrology and [facility]ul[facility] Reese, [facility] [place] [address] [facility] [address] [place] [phone] [phone] (Wo rk) Social History Tobacco Use Types [...] How often do you attend restorationist or baptism Never 05/23/2022 services? Do you [...]
--- OUTSIDE RECORDS SUMMARY | 2022-06-04 18:10 | XMS_ITS | Encounter Summary ---
:1940 Author Organization [facility] Address [address] [place] [address] Care Team Providers Name Role Phone Unavailable Primary Care Provider Unavailable Reason for Visit Reason Comments Med Refill Encounter Details Date Type Department Care Team Description 08/28/2020 Refill Division of Nephrology and Antelmo White M.D. Med Refill Hypertension in [address] [address] [place] [address] [place] [address] [phone] Social History Tobacco Use Types Packs/Day Years [...] 05/23/2022 relatives? How often do you attend denominational or rastafarian Never 05/23/2022 services? Do you belong to any clubs or organizations such as No 05/23/2022 denominational groups, unions, fraternal or athletic groups, or [...] this encounter Miscellaneous Notes Telephone Encounter - Angela Kimbrough I. RChristianN. - 08/31/2020 3:33 PM [employer] STRENGTH TESTER Surescripts request received for tramadol 50 mg tablet three times a day if needed for pain. 3 monthRN chronic opioid review completed on 08/24/2020. Prescription forwarded to provider for review and completion. WEIGHT AND STRENGTH TESTER documented in this encounter Plan of Treatment Not on filedocumented as of this encounter Visit Diagnoses Diagnosis Pain Buttock documented in this encounter Additional Health Concerns Assessment Noted Time PHQ-9 Depression Total Score: 3 03/03/2020 8:00 AM CDT documented as of this encounter
--- OUTSIDE RECORDS SUMMARY | 2022-06-04 18:10 | XMS_ITS | Encounter Summary ---
:1939 Author Organization [facility] Address [address] [place] [address] Care Team Providers Name Role Phone Unavailable Primary Care Provider Unavailable Encounter Details Date Type Department Care Team Description 12/24/2020 Hospital Encounter Department of Antelmo Reese Pain Hip Bilateral Radiology, Dom Clayton M.D. [facility], in [address] [place] [address] [place], [place] [phone] (Work) [phone] Social History Tobacco Use Types Packs/Day Years [...] 05/23/2022 relatives? How often do you attend adventism or restoration Never 05/23/2022 services? Do you belong to any clubs or organizations such as No 05/23/2022 adventism groups, unions, fraternal or athletic groups, or [...] Name Priority Date/Time Associated Comments Diagnosis DX HIP AND PELVIS RAD - Routine 12/24/2020 8:54 Pain Hip Result s for this RIGHT 2-3 VIEWS (most inpatients AM CDT Bilateral procedur e are in and all the results outpatients) section. documented in this encounter Results DX Hip And Pelvis [...] lower lumbar spine. Osteopenia. Vascular calcification. Antelmo [facility] DENNIS CRUZ documented in this encounter Visit Diagnoses Diagnosis Pain Hip Bilateral documented in this encounter Additional Health Concerns Assessment Noted Time PHQ-9 Depression Total Score: 3 03/03/2020 8:00 AM CDT documented as of this encounter
--- OUTSIDE RECORDS SUMMARY | 2022-06-04 18:10 | XMS_ITS | Encounter Summary ---
:1940 Author Organization [facility] Address [address] [place] [address] Care Team Providers Name Role Phone Unavailable Primary Care Provider Unavailable Encounter Details Date Type Department Care Team Description 12/24/2020 Hospital Encounter Department of Hugh, Pain Hip Bilateral; Laboratory Medicine Wade Peterson Hypertension Personal History; and Pathology, [address] [place] [address] Hyperlipidemia; [facility], in [place], [place] Loss Me carlos Short Term [place], [place] [address] [place] [address] [place], [place] (Work) [phone] Social History Tobacco Use Types Packs/Day Years [...] 05/23/2022 relatives? How often do you attend druze or temple Never 05/23/2022 services? Do you belong to any clubs or organizations such as No 05/23/2022 druze groups, unions, fraternal or athletic groups, or [...] Date/Time Associated Comments Diagnosis DIPSTICK, U Routine 12/24/2020 7:46 AM Results f or this CDT procedure are i n the results section. MICROSCOPIC AUTOMATED Routine 12/24/2020 7:46 AM Results for this CDT procedure are i n the results section. PH, U Routine 12/24/2020 7:46 AM Results f or this CDT procedure are i n the results section. OSMOLALITY, U Routine 12/24/2020 7:46 AM Results for this CDT procedure are i n the results section. URINALYSIS WITH Routine 12/24/2020 7:46 AM Pain Hip Bila teral Results for this MICROSCOPIC CDT Hypertension procedure are i n Personal History the results Hyperlipidemia section. Loss Memory Short Term documented in this encounter Results pH, Urine (12/24/2020 7:46 AM CDT) athologist Signature pH, U 7.0 4.5 - 8.0 12/24/2020 8:54 DTL AM CDT Specimen Anatomical Collection Method Collection Time Receive d Time (Source) Location / / Volume Laterality Urine 12/24/2020 7:46 AM 8:02 CDT AM CDT Antelmo Reese M.D. LAB URINE ORDERABLES Performing Organization Address City/[facility]/ZIP Code Phon e Number [facility] - [address] Osmolality, Urine (12/24/2020 7:46 AM CDT) athologist Signature Osmolality, U 334 150 - 1150 12/24/2020 DTL mOsm/kg 8:54 AM CDT Specimen Anatomical Collection Method Collection Time Receive d Time (Source) Location / / Volume Laterality Urine 12/24/2020 7:46 AM 8:02 CDT AM CDT Antelmo Reese M.D. LAB URINE ORDERABLES Performing Organization Address City/[facility] Phon e Number [facility] - [address] [place], [place] [address] [place] [id number] [place] [address] [facility] Microscopic Automated (12/24/2020 7:46 AM CDT) athologist Signature Microscopy Normal 12/24/2020 8:34 DTL AM CDT Specimen Anatomical Collection Method Collection Time Receive d Time (Source) Location / / Volume Laterality Urine 12/24/2020 7:46 AM 8:02 CDT AM CDT Antelmo Reese M.D. LAB URINE ORDERABLES Performing Organization Address [facility]/ZIP [facility] Phon e Number [facility] - [address] [place] [address] [place] [address] Laboratories-[facility] 200 [facility] Dipstick, Urine (12/24/2020 7:46 AM CDT) Patholo gist Method Time Signature Hemoglobin, QL Negative Negative 12/24/2020 DTL 8:34 AM CDT Leukocyte Negative Negative 12/24/2020 DTL Esterase, U 8:34 AM CDT Nitrite, U Negative Negative 12/24/2020 DTL 8:34 AM CDT Ketones, U Negative Negative 12/24/2020 DTL mg/dL 8:34 AM CDT Glucose, U Negative Negative 12/24/2020 DTL mg/dL 8:34 AM CDT Specimen Anatomical Collection Method Collection Time Receive d Time (Source) Location / / Volume Laterality Urine 12/24/2020 7:46 AM 8:02 CDT AM CDT Antelmo Reese M.D. LAB URINE ORDERABLES Performing Organization Address City/[facility] Phon e Number [facility] - [address] [place] [address] [place] [address] Laboratories-[address] Urinalysis with Microscopic: Urine, Clean Catch (12/24/2020 [...] Laterality Urine (Urine, 12/24/2020 7:46 AM 12/25/19 8:02 Clean Catch) CDT AM CDT Antelmo Reese M.D. LAB URINE ORDERABLES Performing Organization Address City/State/[facility] Code Phon e Number [facility] - [address] [place], [place] [address] [facility] [place] [address] Laboratories-[facility] [address] documented in this encounter Visit Diagnoses Diagnosis Pain Hip Bilateral Hypertension Personal History Hyperlipidemia Loss Memory Short Term documented in this encounter Additional Health Concerns Assessment Noted Time PHQ-9 Depression Total Score: 3 03/03/2020 8:00 AM CDT documented as of this encounter
--- OUTSIDE RECORDS SUMMARY | 2022-06-04 18:10 | XMS_ITS | Encounter Summary ---
:1940 Author Organization [facility] Address [address] [place] [address] Care Team Providers Name Role Phone Unavailable Primary Care Provider Unavailable Reason for Visit Outpatient (Routine) - Closed Specialty Diagnoses / Procedures Referred By Contact Refer red To Contact Diagnoses Bursitis Trochanteric Right Sita Ralph M.D. [facility] Procedures ORS US-Guided aspiration/injection [address] [place] [address] Referral ID Status Reason Start Date Expiration Date Visits Requ ested Visits Authorized [id number] Closed 12/24/2020 12/24/2021 1 1 Encounter Details Date Type Department Care Team Description 12/24/2020 Procedure visit Department of Physical Kimani Shea rsitis Trochanteric Medicine and [facility]aw [facility]oz[facility] Right Rehabilitation in [address] [place] [address] [place] [address] [place] [address] [phone] Social History Tobacco Use Types Packs/Day Years [...] How often do you attend yazidi or orthodoxy Never 05/23/2022 services? Do you [...] documented as of this encounter Procedure Notes Kierra Shea M.D. - 12/24/2020 3:30 PM CDTAssociated Order(s): ORS US-Guided aspiration/injection: R greater troch bursa Pre-Procedure Diagnose(s): Bursitis Trochanteric Right Post-Procedure Diagnose(s): Bursitis Trochanteric Right Hip site - R greater troch bursa : injection only Date/Time: 12/24/2020 3:36 PM Performed by: Kierra Shea M.D. Authorized by: Sita Ralph M.D. Care team members present 1. Kierra Shea M.D. 2. Robin Koehler D.O. 3. Analilia Callahan PROCEDURE DETAILS Procedure Location hip Hip site: R greater troch bursa Site prep: patient was prepped and draped in usual sterile fashion Patient position: side-lying Procedural approach: posterolateral Procedure performed: injection only Needle gauge: 22 G, length: 2.5 in Image guidance Ultrasound The use of direct ultrasound visualization of the needle was required (rather than a non-guided injection) to ensure accurate injection delivery and to maximize clinical benefit beyond that obtained with a non-guided injection. Additionally, there can be diagnostic specificity when evaluating effectiveness of the injection, and for safety purposes to minimize risk of bleeding or injury to surroundingstructures. A syringe containing 2cc of ropivacaine 0.2% was utilized for subcutaneous anesthesia as well as to drive the needle tip to target location. Good flow visualized at the subgluteus elisa bursa. Then, the syringe was exchanged for a mixture containing 1cc ropivacaine 0.2% and 1cc depo-medrol 40mg/cc which was injected at the target location. Again, good flow was visualized. Successful injection. Images saved: yes Pre-procedure image guidance used to localize target and identify at risk structures, and plan approach and site was marked using indelible marker. Probe: linear mid-frequency Needle approach: posterior to anterior Ultrasound visualization: in-plane Procedural Medication The following medications were administered at the target site(s) Local anesthetic: 1 [...] applicable for the procedure. Site preparation: chlorhexidine SEDATION / ANESTHESIA Anesthesia method: local infiltration Local infiltrate type: see MAR for dose, ropivacaine POST-PROCEDURE DETAILS Procedure completed successfully: yes Complications: no apparent complications Post-procedure instructions: avoid strenuous activity for 2 days, avoid submersion of procedure sitefor 48 hours and post-procedure activity instructions provided Discharge instructions: ice area as needed for comfort, pain management instructions, follow-up withordering provider and medications and side effects Comments Analilia Callahan documented this note on behalf of Kierra Shea M.D., who performed the service(s). ATTESTATION STATEMENT A resident or fellow participated in the procedure, and the crm consultant was present for the entire procedure. Kierra Shea M.D. documented in this encounter Plan of Treatment Not on filedocumented as of this encounter Procedures Procedure Name Priority Date/Time Associated Diagnosis Comme nts KS ARTHCS ASP/INJ Routine 12/24/2020 3:36 PM Bursitis Trochant albino Results for this MJR JT W US CDT Right procedure are i n the results section. documented in this encounter Results [place] ARTHCS ASP/INJ MJR JT W US (12/24/2020 [...] present 1. Kierra Shea M.D. 2. Robin Koehler, D.OChristian 3. Analilia Callahan PROCEDURE DETAILS Procedure Location [...] fellow participated in the procedure, and the crm consultant was present for the entire procedure. Sita M Ramo M.D. PROCEDURE/MINOR SURGICAL ORD ERABLES Performing Organization Address City/State/ZIP Code Phon e Number MMODAL MMODAL NA documented in this encounter Visit Diagnoses Diagnosis Bursitis Trochanteric Right documented in this encounter Administered Medications Inactive Administered Medications - up to 3 most recent administrations Medication Order MAR Action Action Date Dose Rate Site methylPREDNISolone acetate Given 12/24/2020 3:36 PM CDT 40 mg injection 40 mg (DEPO-Medrol) 40 mg, intra-articular, One-Time Injection, Starting on Sun12/24/20 at 1536, For 1 dose ropivacaine (PF) 2 mg/mL (0.2 %) injection 1 mL Given 12/24/2020 3:36 PM CDT 1 mL (NAROPIN) 1 mL, One-Time Injection, Starting on Sun12/24/20 at 1536, For 1 dose ropivacaine (PF) 2 mg/mL (0.2 %) injection 2 mL Given 12/24/2020 3:36 PM CDT 2 mL (NAROPIN) 2 mL, One-Time Injection, Starting on Sun12/24/20 at 1536, For 1 dose documented in this encounter Additional Health Concerns Assessment Noted Time PHQ-9 Depression Total Score: 3 03/03/2020 8:00 AM CDT documented as of this encounter
--- OUTSIDE RECORDS SUMMARY | 2022-06-04 18:10 | XMS_ITS | Encounter Summary ---
:1940 Author Organization [facility] Address [address] [place] [address] Care Team Providers Name Role Phone Unavailable Primary Care Provider Unavailable Reason for Referral Outpatient (Routine) - Closed Specialty Diagnoses / Procedures Referred By Contact Refer red To Contact Diagnoses Hypertension Personal History Antelmo Reese M.D. [facility] Procedures ECG 12 [address] [place] [address] Referral ID Status Reason Start Date Expiration Date Visits Requ ested Visits Authorized [id number] Closed 12/24/2020 12/24/2021 1 1 Outpatient (Routine) - Closed Specialty Diagnoses / Procedures Referred By Contact Refer red To Contact Diagnoses Benign Prostatic Hyperplasia Without Obstruction Antelmo Reese M.D. [facility] Procedures URO Uroflow [address] [place] [address] Referral ID Status Reason Start Date Expiration Date Visits Requ ested Visits Authorized [id number] Closed 12/24/2020 12/24/2021 1 1 Outpatient (Routine) - Closed Specialty Diagnoses / Procedures Referred By Contact Refer red To Contact Urology Diagnoses Benign Prostatic Hyperplasia Without Obstruction Antelmo Reese M.D. [facility] [address] [place] [address] Referral ID Status Reason Start Date Expiration Date Visits Requ ested Visits Authorized [id number] Closed 12/24/2020 12/24/2021 1 1 Reason for Visit Reason Comments Hypertension Hyperlipidemia Outpatient (Routine) - Closed Specialty Diagnoses / Procedures Referred By Contact Refer red To Contact Nephrology and Diagnoses Pain Hip Bilateral Hypertension Personal History Hyperlipidemia Loss Memory Short [facility] [address] [place] [address] Referral ID Status Reason Start Date Expiration Date Visits Requ ested Visits Authorized [id number] Closed 10/01/2020 10/01/2021 1 1 Encounter Details Date Type Department Care Team Description 12/24/2020 Office Visit Division of Nephrology Antelmo Reese Prostatic Hyperplasia Without Obstruction (Primary Dx); and Hypertension in Yaw Clayton Pain Hip Bilateral; [place], [place] [address] [facility] Hypertension Personal History; [address] [place], [place] Hyperlipidemia; [place] [address] Loss Memory Short Term; [phone] Coronary Artery Disease With out Angina Pectoris; Hypertension Essential Primary Social History Tobacco Use Types Packs/Day Years [...] 05/23/2022 relatives? How often do you attend mormonism or christian Never 05/23/2022 services? Do you belong to any clubs or organizations such as No 05/23/2022 mormonism groups, unions, fraternal or athletic groups, or [...] 88.7 kg (195 lb 8.8 oz) 12/24/2020 12:58 PM CDT Height 181 cm (5' 11.26) 12/24/2020 12:58 PM CDT Body Mass Index 27.07 12/24/2020 12:58 PM CDT documented in this encounter H&P Notes Antelmo Reese M.D. - 12/24/2020 1:30 PM CDT REFERRAL SOURCE Self REASON FOR VISIT Right lateral hip pain. Urinary frequency HISTORY OF PRESENT ILLNESS It was a pleasure to see Mr. Merrill , who is a very pleasant 80 y.o. I also visited with his . Right lateral hip pain. No pain in the groin. 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 Nocturia and urinary frequency. He has nocturia x3. This is in spite of use of finasteride and tamsulosin. PAST MEDICAL HISTORY 1. Stroke with residual [...] minutes. Some short-term memory loss. VITAL SIGNS Ht 181 cm Wt 88.7 kg BMI 27.07 kg/m?? PHYSICAL EXAMINATION Constitutional Comments: Very pleasant. Healthy. Cardiovascular Rate and Rhythm: Normal rate. Heart sounds: Normal heart sounds. Pulmonary Breath sounds: Normal breath sounds. No wheezing or rales. Abdominal General: Bowel sounds are normal. There is no distension. Tenderness: There is no abdominal tenderness. Genitourinary Comments: Prostate mildly enlarged. Musculoskeletal General: Normal range of motion. Lymphadenopathy Cervical: No cervical adenopathy. LAB RESULTS CBC normal. Creatinine stable at 1.4. Cholesterol very good at 127. Urinalysis normal. IMPRESSION 1. Right lateral hip pain probably from tendinitis and bursitis. Injection and physical therapy are planned. 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 He has nocturia x3 and reduce force of stream. PLAN AND RECOMMENDATIONS For the right lateral hip pain, proceed with injection and physical therapy. For the benign prosthetic hyperplasia, proceed with urology consultation for possible intervention. The heart rhythm is irregular today, probably from premature contractions. The heart rate is satisfactory. We will do an electrocardiogram. I reviewed the above with the patient. [Addendum 12/24/2020: I phoned the patient to let him know that the electrocardiogram showed benign premature atrial and ventricular contractions.] Antelmo Reese M.D. documented in this encounter Plan of Treatment Scheduled Referrals Name Type Priority Associated Diagnoses Order S [facility] Urology - General - Outpatient Referral Routine Benign Prostat ic Expected: urinary retention Hyperplasia Without 07/2020 consult (clinic) Obstruction (Approximat e), Expires: 12/25/2023 documented as of this encounter Results URO Uroflow (12/31/2020 9:15 [...] recomme nded. Antelmo Reese M.D. UROLOGY ORDERABLES Bacterial Culture, Aerobic + Susc, Urine (12/24/2020 4:22 PM CDT) Component Value Ref Test Analysis Performed At Patholo gist Range Method Time Signature Urine Organism present <10,000 cfu/mL, susceptibilities not 12/26/2020 DTL Culture performed per laboratory criteria. 6:28 AM CDT Specimen Anatomical Collection Method Collection Time Receive d Time (Source) Location / / Volume Laterality Urine (Urine, 12/24/2020 4:22 PM 12/25/19 21 7:55 Midstream) CDT PM CDT Comment: Specimen Source Site: Urine Antelmo Reese M.D. LAB MICROBIOLOGY - GENERAL O RDERABLES Performing Organization Address City/State/ZIP Code Phon e Number [facility] - [address] [place], [place] [address] [facility] [place] [address] Laboratories-[facility] [place] [address] PSA (Prostate-Specific Antigen), Diagnostic (12/24/2020 4:14 PM [...] Laterality Blood (Blood, 12/24/2020 4:14 PM 12/25/19 21 4:55 Venous) CDT PM CDT Antelmo Reese M.D. LAB BLOOD ADD-ON Performing Organization Address City/State/ZIP Code Phon e Number [facility] - [address] [place], [place] [address] [facility] [place] [address] Laboratories-[facility] [place] [address] ECG 12 Lead (12/24/2020 2:30 PM CDT) P athologist Signature Ventricular Rate 74 BPM MUSE ECG/Min UT Interval 192 ms MUSE QRSD Interval 94 ms MUSE QT Interval 422 ms MUSE QTC Interval 468 ms MUSE P [place] 43 degrees MUSE R [place] 37 degrees MUSE T Wave [place] 85 degrees MUSE Specimen Anatomical Collection Method Collection Time Receive d Time (Source) Location / / Volume Laterality 12/24/2020 2:30 PM 2:42 CDT PM CDT Impressions MUSE - 12/24/2020 2:42 PM CDT Normal sinus rhythm Premature ventricular complexes Premature supraventricular complexes Left atrial enlargement Possible Inferior infarct Nonspecific T wave abnormality When compared with ECG of 16-NOV-2016 07 :40, Premature ventricular complexes and Brady ature supraventricular complexes are now present Reviewed by MARTINA Rosario Narrative This result has an attachment that is no t available. Procedure Note Nolan Alejandra M.D., Ph.D. - 1 IMPRESSION: Normal sinus rhythm Premature ventricular complexes Premature supraventricular complexes Left atrial enlargement Possible Inferior infarct Nonspecific T wave abnormality When compared with ECG of 16-NOV-2016 07 :40, Premature ventricular complexes and Brady ature supraventricular complexes are now present Reviewed by MARTINA Rosario Antelmo Reese M.D. ECG ORDERABLES Performing Organization Address City/State/ZIP Code Phon e Number MUSE MUSE NA documented in this encounter Visit Diagnoses Diagnosis Benign Prostatic Hyperplasia Without Obs truction - Primary Pain Hip Bilateral Hypertension Personal History Hyperlipidemia Loss Memory Short Term Coronary Artery Disease Without Angina P ectoris Hypertension Essential Primary Benign Prostatic Hyperplasia Without Obs truction Hyperplasia Prostate Benign Localized Wi th Obstruction Feeling Of Incomplete Bladder Emptying documented in this encounter Additional Health Concerns Assessment Noted Time PHQ-9 Depression Total Score: 3 03/03/2020 8:00 AM CDT documented as of this encounter
--- OUTSIDE RECORDS SUMMARY | 2022-06-04 18:10 | XMS_ITS | Encounter Summary ---
:1939 Author Organization [facility] Address [address] [place] [address] Care Team Providers Name Role Phone Unavailable Primary Care Provider Unavailable Encounter Details Date Type Department Care Team Description 08/27/2020 Orders Only Division of Nephrology and Ghulam Reese, [facility] [place] [address] [facility] [address] [place] [address] [phone] (Wo rk) Social History Tobacco Use Types [...] 05/23/2022 relatives? How often do you attend amish or evangelical Never 05/23/2022 services? Do you belong to any clubs or organizations such as No 05/23/2022 amish groups, unions, fraternal or athletic groups, or [...]
--- OUTSIDE RECORDS SUMMARY | 2022-06-04 18:10 | XMS_ITS | Encounter Summary ---
:1939 Author Organization [facility] Address [address] [place] [address] Care Team Providers Name Role Phone Unavailable Primary Care Provider Unavailable Encounter Details Date Type Department Care Team Description 06/15/2020 Orders Only Division of Nephrology and Ghulam Reese, Hypertension in [facility] [address] [facility] [address] [place] [address] [phone] (Wo rk) Social History Tobacco Use Types [...] How often do you attend yazidi or evangelical Never 05/23/2022 services? Do you [...]
--- OUTSIDE RECORDS SUMMARY | 2022-06-04 18:10 | XMS_ITS | Encounter Summary ---
:1940 Author Organization [facility] Address [address] [place] [address] Care Team Providers Name Role Phone Unavailable Primary Care Provider Unavailable Reason for Visit Appointment Request (Routine) - Closed Specialty Diagnoses / Procedures Referred By Contact Refer red To Contact Dermatology Referral ID Status Reason Start Date Expiration Date Visits Requ ested Visits Authorized [id number] Closed 02/02/2020 02/01/2021 1 1 Encounter Details Date Type Department Care Team Description 03/04/2020 Office Visit Department of Ernestina Brewster, Keratosis Se boreic (Primary Dx); Dermatology in M.D. Keratosis Act inic; [place], [place] Dermatoheliosis [address] [place] [address] Social History Tobacco Use Types Packs/Day Years [...] How often do you attend tenriism or buddhism Never 05/23/2022 services? Do you belong to [...] documented as of this encounter Consult Notes Ernestina Brewster M.D. - 03/04/2020 1:40 PM CDT SUBJECTIVE CHIEF COMPLAINT / REASON FOR VISIT Patient seen and discussed with supervising residential solar sales consultant, Dr. Smith, who evaluated the patient and concurs with the assessment and plan. Correspondence to Ernestina Vazquez M.D. Skin check HISTORY OF THE PRESENT ILLNESS Familia Merrill is a pleasant 79 y.o. male who is seen in clinic today for a skin check. 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 He noticed anew spot behind the right ear since his last visit but it does not bother him. He denies any other skin concerns. Tries to be diligent with photoprotection. He is otherwise healthy. OBJECTIVE PHYSICAL EXAM General: Awake, alert, in no acute distress. Eyes: No scleral injection or icterus. No eyelid abnormalities. Cardio: No lower extremity edema. Respiratory: Breathing well on room air; appears well perfused. Skin: I have examined the scalp, face, neck, chest, abdomen, back, bilateral upper extremities and bilateral lower extremities including hands and feet, and buttocks per patient request. Pena type 2 skin with moderate to severe dermatoheliosis of chronic sun-exposed areas. There is a couple small gritty erythematous papules on the forehead and right chest. Otherwise, scattered on the face, trunk, extremities he has numerous brown waxy thick to thin stuck on papules. On the right postauricularneck is a verrucous soft papule on a stalk. On the left jawline he has a couple soft dome-shaped papules. He has numerous soft fleshy pedunculated papules on the back. Psych: Affect appropriate. ASSESSMENT / PLAN #1 History of severely atypical nevus #2 Dermatoheliosis Sun protection and sun avoidance were reviewed with the patient. I would recommend a full skin cancer screening examination with an appropriately trained clinician every year. #3 Seborrheic keratoses #4 Verrucal keratosis The new lesion of concern on the right postauricular neck is a benign lesion called verrucal keratosis. I offered treatment but he is not bothered by the lesion. The benign nature of the skin lesion(s)was discussed with the patient. No treatment is required. I recommend continued observation. Should symptoms or changes develop related to this condition, I would recommend a return visit for reassessment. #5 Actinic keratosis x3 Due to the precancerous nature, I recommended treatment today with cryotherapy. After explaining theprocedure, discussing the associated risks, benefits, and alternatives, and obtaining verbal informed consent, the lesion(s) underwent treatment with liquid nitrogen cryotherapy in the standard fashion. Wound care was discussed. Patient offered educational materials. documented in this encounter Plan of Treatment Not on filedocumented as of this encounter Visit Diagnoses Diagnosis Keratosis Seborrheic - Primary Keratosis Actinic Dermatoheliosis documented in this encounter Additional Health Concerns Assessment Noted Time PHQ-9 Depression Total Score: 3 03/03/2020 8:00 AM CDT documented as of this encounter
--- OUTSIDE RECORDS SUMMARY | 2022-06-04 18:10 | XMS_ITS | Encounter Summary ---
:1940 Author Organization [facility] Address [address] [place] [address] Care Team Providers Name Role Phone Unavailable Primary Care Provider Unavailable Reason for Visit Reason Comments Follow-up 3 month chronic opioid follo w-up Encounter Details Date Type Department Care Team Description 08/24/2020 Clinical Division of Kaylan, Follow-up (3 mo [facility] Communication Nephrology and Angela Palacios, chronic opio id Hypertension in R.N. follow-up) [place], [place] [address] [facility] [address] [place] [phone] Social History Tobacco Use Types Packs/Day Years [...] How often do you attend hinduism or sikh Never 05/23/2022 services? Do you [...] Miscellaneous Notes Telephone Encounter - Angela Kimbrough R.N. - 08/24/2020 10:59 AM [employer] The following information was provided: Nephrology & Hypertension provider: Dr. Reese Date of last visit: 03/03/2020 Requested medication and dosage: traMADoL (ULTRAM) 50 mg tablet one tablet three times a day Date of last renewal: 03/03/2020 Average number of tablets per day: 3 tablets Number of tablets remainin tablets Side effects: none Pain location and description: lower back and dull pain Current pain ratin Controlled substance agreement on file: yes, 03/03/2020 [place] Prescription Drug Monitoring Program (PDMP): Not a delegate Opioid Action Plan reviewed. The above information will be shared with the prescriber. Information/Education: patient/caller able to teach back The following references were used: nursing clinical judgement [employer] documented in this encounter Plan of Treatment Not on filedocumented as of this encounter Visit Diagnoses Not on filedocumented in this encounter Additional Health Concerns Assessment Noted Time PHQ-9 Depression Total Score: 3 03/03/2020 8:00 AM CDT documented as of this encounter
--- OUTSIDE RECORDS SUMMARY | 2022-06-04 18:11 | XMS_ITS | Encounter Summary ---
:1940 Author Organization [facility] Address [address] [place] [address] Care Team Providers Name Role Phone Unavailable Primary Care Provider Unavailable Reason for Visit Reason Comments Med Refill Encounter Details Date Type Department Care Team Description 09/16/2019 Clinical Communication Division of Nephrology Antelmo Reese Med Refill and Hypertension in R, M.[place], [place] [address] [facility] [address] [place] [phone] Social History Tobacco Use Types Packs/Day Years [...] How often do you attend judaism or amish Never 05/23/2022 services? Do you [...] place to sleep or slept in a prison (including now)? Education Answer Date Recorded What is the highest level of school you have completed or 12 th grade 03/04/2019 the highest degree you have received? Sex Assigned at Date Recorded Male 04/08/2018 12:55 PM CDT documented as of this encounter Miscellaneous Notes Telephone Encounter - Josue Purvis - 09/16/2019 4:38 PM CDT Faxed prescription for Tramadol and zolpidem mailed to the patient's home address. documented in this encounter Plan of Treatment Not on filedocumented as of this encounter Visit Diagnoses Not on filedocumented in this encounter
--- OUTSIDE RECORDS SUMMARY | 2022-06-04 18:11 | XMS_ITS | Encounter Summary ---
:1940 Author Organization [facility] Address [address] [place] [address] Care Team Providers Name Role Phone Unavailable Primary Care Provider Unavailable Reason for Visit Reason Comments Hypertension Outpatient (Routine) - Closed Specialty Diagnoses / Procedures Referred By Contact Refer red To Contact Nephrology and Diagnoses Hypertension Personal History Hyperlipidemia Loss Memory Short Term Coronary Artery Disease (Unspecified) [facility] [address] [place] [address] Referral ID Status Reason Start Date Expiration Date Visits Requ ested Visits Authorized [id number] Closed 12/13/2018 12/13/2019 1 1 Encounter Details Date Type Department Care Team Description 03/07/2019 Office Visit Division of Nephrology Antelmo Reese Hy pertension Personal History; and Hypertension in R, M.D. Hyperlipidemia; [place], [place] [address] [facility] Loss Memory Short Term; [address] [place], [place] Hypertension Essential Prima ry; [place] [address] Coronary Artery Disease Without Angina P ectoris [phone] Social History Tobacco Use Types Packs/Day Years Used Date Smoking Tobacco: Former Smokeless Tobacco: Never Alcohol Use Standard Drinks/Week [...] How often do you attend methodist or restoration Never 05/23/2022 services? Do you [...] Sign Reading Time Taken Comments Blood Pressure 118/72 03/07/2019 2:57 PM CDT Pulse 66 03/07/2019 1:34 PM CDT Temperature 36.8 ??C (98.2 ??F) 03/07/2019 1:34 PM CDT Respiratory Rate - - Oxygen Saturation - - Inhaled Oxygen Concentration - - Weight 86.2 kg (190 lb 0.6 oz) 03/07/2019 1:34 PM CDT Height 181.5 cm (5' 11.46) 03/07/2019 1:34 PM CDT Body Mass Index 26.17 03/07/2019 1:34 PM CDT documented in this encounter H&P Notes Antelmo Reese M.D. - 03/07/2019 2:30 PM CDT REFERRAL SOURCE Self REASON FOR VISIT Lightheadedness. Low urinary flow. HISTORY OF PRESENT ILLNESS It was a pleasure to see Mr. Merrill , who is a very pleasant 78 y.o. I also visited with his . He occasionally notes positional lightheadedness. On those occasions his blood pressure might be low, with systolic blood pressure about 90. One time he went on a longer walk than usual and his blood pressure was about 80/50. He has chronic hypertension. He takes losartan/HCTZ 100/25 mg a day, carvedilol 12.5 mg twice a day, and amlodipine 5 mg a day. He has BPH and takes tamsulosin 0.4 mg a day. The flow of urine can be quite slow at times. PAST MEDICAL HISTORY 1. 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 2. Coronary heart disease. He rarely has chest pain. 3. Chronic bilateral buttock pain. X-rays of his pelvis show no significant abnormality. He takes tramadol 50 mg twice a day. 4. Chronic insomnia. Zolpidem works well. 5. Hyperlipidemia He takes a statin. 6. Benign prostatic hyperplasia. He is currently using tamsulosin. 7. Left total hip arthroplasty. 8. Hypertension REVIEW OF SYSTEMS VITAL SIGNS BP 118/72 (BP Location: Left arm, Patient Position: Standing) Pulse 66 Temp 36.8 ??C Ht 181.5 cm Wt 86.2 kg BMI 26.17 kg/m?? PHYSICAL EXAMINATION Constitutional: Very pleasant. Healthy. Cardiovascular: Normal rate, regular rhythm, normal heart sounds and intact distal pulses. Pulmonary/Chest: Breath sounds normal. He has no wheezes. He has no rales. Abdominal: Bowel sounds are normal. He exhibits no distension. There is no tenderness. Genitourinary: Genitourinary Comments: Prostate mildly enlarged. Musculoskeletal: Normal range of motion. Lymphadenopathy: He has no cervical adenopathy. LAB RESULTS CBC normal. Creatinine stable at 1.4. Blood glucose 112. Cholesterol very good at 128. Urinalysis normal. IMPRESSION 1. Lightheadedness with low blood pressure. Some of this is probably from tamsulosin, which he takes in the afternoon. In addition, he probably needs less antihypertensive medication. His blood pressure has not been elevated lately. 2. Benign prostatic hyperplasia with low urine flow. This is in spite of tamsulosin 1 a day. PLAN AND RECOMMENDATIONS For the lightheadedness and low blood pressure, take the tamsulosin at bedtime rather than in the afternoon and reduce the amlodipine from 5 mg a day to 2.5 mg a day. For the low urinary flow and benign prostatic hyperplasia, add Finasteride 1 a day. If that works well, we might eventually be able to stop the tamsulosin. Antelmo Reese M.D. documented in this encounter Plan of Treatment Not on filedocumented as of this encounter Visit Diagnoses Diagnosis Hypertension Personal History Hyperlipidemia Loss Memory Short Term Hypertension Essential Primary Coronary Artery Disease Without Angina P ectoris documented in this encounter
--- OUTSIDE RECORDS SUMMARY | 2022-06-04 18:11 | XMS_ITS | Encounter Summary ---
:1940 Author Organization [facility] Address [address] [place] [address] Care Team Providers Name Role Phone Unavailable Primary Care Provider Unavailable Encounter Details Date Type Department Care Team Description 04/15/2019 Immunization Section of Preventive, Need Vaccine Transportation and Immunizat ion Influenza Occupational Medicine in [place], [place] [address] [place] [phone] Social History Tobacco Use Types Packs/Day [...] often do you attend jehovah's witness or tenriism Never 05/23/2022 services? Do you [...] place to sleep or slept in a penitentiary (including now)? Education Answer Date Recorded What is the highest level of school you have completed or 12 th grade 03/04/2019 the highest degree you have received? Sex Assigned at Date Recorded Male 04/08/2018 12:55 PM CDT documented as of this encounter Plan of Treatment Not on filedocumented as of this encounter Visit Diagnoses Diagnosis Need Vaccine Immunization Influenza documented in this encounter
--- OUTSIDE RECORDS SUMMARY | 2022-06-04 18:11 | XMS_ITS | Encounter Summary ---
:1940 Author Organization [facility] Address [address] [place] [address] Care Team Providers Name Role Phone Unavailable Primary Care Provider Unavailable Encounter Details Date Type Department Care Team Description 03/07/2019 Hospital Encounter Department of Javon Reese Personal History; Laboratory Medicine Wade Peterson Hyperlipidemia; and Pathology, [address] [place] [address] Memory Short Term; [facility], in [place], [place] Coronar y Artery Disease (Unspecified) [place], [place] [address] [place] [address] [place], [place] (Work) [phone] Social History Tobacco Use [...] 05/23/2022 relatives? How often do you attend shinto or taoist Never 05/23/2022 services? Do you belong to any clubs or organizations such as No 05/23/2022 shinto groups, unions, fraternal or athletic groups, or [...] mouth 0 10/24 ORAL daily. MiraLAX powder traMADol (ULTRAM) 50 mg Take 1 tablet (50 mg 60 tablet 0 04/30/2019 tabletIndications: total) by mouth Chronic Pain/Nonacute every 12 (twelve) Pain hours as needed for pain Indications: Chronic Pain/Nonacute Pain. amLODIPine (NORVASC) 2.5 Take 1 tablet (2.5 90 tablet 3 03/03/2020 mg tablet mg total) by mouth daily. carvedilol (COREG) 12.5 Take 1 tablet (12.5 180 tablet 3 03/03/2020 mg tablet mg total) by mouth 2 (two) times a day with meals. finasteride (PROSCAR) 5 Take 1 tablet (5 mg 90 tablet 3 03/03/2020 mg tablet total) by mouth daily. losartan-hydroCHLOROthia Take 1 tablet by 100 tablet 3 03/0703/03/2020 zide (HYZAAR) 100-25 mg mouth every morning. per tabletIndications: Hypertension Personal History nitroglycerin Place 1 tablet (0.4 25 tablet 11 03/07/2019 (NITROSTAT) 0.4 mg SL mg total) under the tablet tongue every 5 (five) minutes as needed for chest pain. Place 1 tab under the tongue at first sign of chest pain. If no relief in 5 min, call 911. Repeat dose every 5 min up to 2 additional doses if chest pain continues. rosuvastatin (CRESTOR) Take 1 tablet (10 mg 90 tablet 3 03/03/2020 10 mg tabletIndications: total) by mouth Coronary Artery Disease every evening. Without Angina Pectoris sertraline (ZOLOFT) 50 Take 1 tablet (50 mg 90 tablet 3 03/03/2020 mg tabletIndications: total) by mouth Hypertension Essential daily. Primary tamsulosin (FLOMAX) 0.4 Take 1 capsule (0.4 90 capsule 3 03/03/2020 mg 24 hr capsule mg total) by mouth daily. zolpidem (AMBIEN) 10 mg Take 1 tablet (10 mg 90 tablet 3 09/08/2019 tablet total) by mouth at bedtime. for sleep documented as of this encounter Plan of Treatment Not on filedocumented as of this encounter Procedures Procedure Name Priority Date/Time Associated Diagnosis Comme nts MICROSCOPIC Routine 03/07/2019 10:01 Results for this AUTOMATED AM CDT procedure are i n the results section. URINALYSIS WITH Routine 03/07/2019 10:01 Hypertension Personal Results for this MICROSCOPIC AM CDT History procedure are in Hyperlipidemia the results Loss Memory Short section. Term Coronary Artery Disease (Unspecified) documented in this encounter Results Microscopic Automated (03/07/2019 10:01 AM CDT) P athologist Signature Microscopy Normal 03/07/2019 11:08 AM CDT Specimen Anatomical Collection Method Collection Time Receive d Time (Source) Location / / Volume Laterality Urine 03/07/2019 10:01 03/07/2019 AM CDT 10:01 AM CDT Antelmo Reese M.D. LAB URINE ORDERABLES Performing Organization Address City/[facility]/ZIP Code Phon e Number [facility] - [address] Urinalysis with Microscopic: Urine, Clean Catch (03/07/2019 10:01 AM CDT) [facility] Method Time Signature Source Midstream 03/07/2019 10:01 AM CDT Appearance Normal Normal 03/07/2019 10:43 AM CDT Osmolality, U 371 150 - 1150 03/07/2019 mOsm/kg 11:30 AM CDT pH, U 6.7 4.5 - 8.0 03/07/2019 11:30 AM CDT Comment: ----ADDITIONAL INFORMATION---- This test was developed and its performa nce characteristics determined by [facility] in a manner co nsistent with CLIA requirements. This test has not bee n cleared or approved by the U.S. Food and Drug Admin istration. Glucose 3 0 - 15 mg/dL 03/07/2019 10:43 AM CDT Protein, U <4 <26 mg/dL 03/07/2019 10:43 AM CDT Comment: ----ADDITIONAL INFORMATION---- On 12/19/2016 the total protein assay me thod changed resulting in approximately a 15% increase in prote in values. Protein/Osmolality <0.11 <0.42 Ratio 03/07/2019 11:30 AM CDT Comment: ----ADDITIONAL INFORMATION---- On 12/19/2016 the total protein assay me thod changed resulting in approximately a 15% increase in prote in values. Predicted 24 Hr Protein <113 mg/24 h 03/07/2019 11:30 AM CDT Predicted Range <355 mg/24 h 03/07/2019 11:30 AM CDT Hemoglobin, QL Negative Negative 03/07/2019 11:08 AM CDT Specimen Anatomical Collection Method Collection Time Receive d Time (Source) Location / / Volume Laterality Urine (Urine, 03/07/2019 10:01 03/07/2019 Clean Catch) AM CDT 10:01 AM CDT Antelmo Reese M.D. LAB URINE ORDERABLES Performing Organization Address City/[facility]/ZIP Code Phon e Number [facility] - [address] documented in this encounter Visit Diagnoses Diagnosis Hypertension Personal History Hyperlipidemia Loss Memory Short Term Coronary Artery Disease (Unspecified) documented in this encounter
--- OUTSIDE RECORDS SUMMARY | 2022-06-04 18:11 | XMS_ITS | Encounter Summary ---
:1939 Author Organization [facility] Address [address] [place] [address] Care Team Providers Name Role Phone Unavailable Primary Care Provider Unavailable Encounter Details Date Type Department Care Team Description 03/07/2019 Ancillary Procedure Department of Dermatology Social History [...] How often do you attend adventist or anabaptism Never 05/23/2022 services? Do you [...] Date/Time Associated Comments Diagnosis DERMATOLOGY IMAGE Routine 03/07/2019 12:00 Result s for this EXAM PM CDT procedure are i n the results section. documented in this encounter Results sternum 201-Dermatology Image Exam (03/07/2019 12:00 PM CDT) Specimen (Source) Anatomical Location Collection Method / Collectio n Time Received Time / Laterality Volume Narrative IIMS - 03/10/2019 10:04 AM CDT This order has been created [...]
--- OUTSIDE RECORDS SUMMARY | 2022-06-04 18:11 | XMS_ITS | Encounter Summary ---
:1939 Author Organization [facility] Address [address] [place] [address] Care Team Providers Name Role Phone Unavailable Primary Care Provider Unavailable Reason for Visit Reason Comments Opioid Annual RN Visit Outpatient (Routine) - Closed Specialty Diagnoses / Procedures Referred By Contact Refer red To Contact Nephrology and Diagnoses Pain Hip Bilateral [facility] [place] [address] [place] [phone] Referral ID Status Reason Start Date Expiration Date Visits Requ ested Visits Authorized [id number] Closed 03/14/2019 03/13/2020 1 1 Encounter Details Date Type Department Care Team Description 03/03/2020 Nurse Only Division of Nephrology Antelmo Reese M.D. [address] [place] [phone] Opioid Annual RN Visit and Hypertension in Angela Kimbrough I. RKiara [address] [place] [phone] [place], [place] [address] [place] [phone] Social History Tobacco Use Types Packs/Day Years [...] How often do you attend bahai or muslim Never 05/23/2022 services? Do you [...] Sign Reading Time Taken Comments Blood Pressure 140/74 03/03/2020 9:22 AM CDT Pulse 64 03/03/2020 9:22 AM CDT Temperature - - Respiratory Rate - - Oxygen Saturation - - Inhaled Oxygen Concentration - - Weight 88.4 kg (194 lb 14.2 oz) 03/03/2020 9:22 AM CDT Height - - Body Mass Index 26.83 03/07/2019 1:34 PM CDT documented in this encounter Progress Notes Angela Kimbrough I., RChristianN. - 03/03/2020 8:45 AM CDT Opioid annual nurse visit History of present illness: chronic buttock pain Objective Assessment BP 140/74 (BP Location: Right arm, Patient Position: Sitting, Cuff Size: Regular) Pulse 64 Wt 88.4 kg BMI 26.83 kg/m?? Pain assessment: 3/10; Location: bilateral buttock discomfort that progresses through the day Pain 2: /10; Location: lower back with bending Presence of side effects: yes - constipation Current medication(s) tramadol 50 mg tablet taking one tablet daily, tablets remainin Outpatient Opioid Meds as of 03/03/2020 traMADoL (ULTRAM) 50 mg tablet Take 1 tablet (50 mg total) by mouth 2 (two) times a day as needed for pain Indications: Chronic Pain/Nonacute Pain. Opioid action plan on file: no Initial education performed: on 03/14/2019 Last Opioid Risk Tool charting Nurse Only from 03/03/2020 in Division of Nephrology and Hypertension in [place], [place] ORT Total Score (max 26) 11 Last PEG score Nurse Only from 03/14/2019 in Division of Nephrology and Hypertension in [place], [place] PEG Total Score 1.33 RUTH-7 Total Score (max 21): 4 (03/03/20 0800) PHQ-9 Total Score (max 27): 3 (03/03/20 0800) PDMP reviewed: no Urine drug screen collected: no Chronic opioid therapy agreement signed and dated: yes, on 03/03/2020 Next assessment: 3 months clinical assessment manager Reviewed [id number] pain relief measures, including: TENS unit, 4% lidocaine patch, massage therapy, acupuncture and essential oil applic documented in this encounter Plan of Treatment Not on filedocumented as of this encounter Visit Diagnoses Diagnosis Pain Hip Bilateral documented in this encounter Additional Health Concerns Assessment Noted Time PHQ-9 Depression Total Score: 3 03/03/2020 8:00 AM CDT documented as of this encounter
--- OUTSIDE RECORDS SUMMARY | 2022-06-04 18:11 | XMS_ITS | Encounter Summary ---
:1939 Author Organization [facility] Address [address] [place] [address] Care Team Providers Name Role Phone Unavailable Primary Care Provider Unavailable Encounter Details Date Type Department Care Team Description 05/06/2019 Clinical Communication Division of Nephrology Antelmo Reese and Hypertension in [place], [place] [address] [facility] [address] [place] [phone] Social History Tobacco Use Types Packs/Day Years [...] How often do you attend judaism or mormonism Never 05/23/2022 services? Do you belong to [...] Miscellaneous Notes Telephone Encounter - Yaneth Walsh I - 05/06/2019 1:02 PM CST Prescription for tramadol mailed to patient. K ENGINE TECHNICIAN documented in this encounter Plan of Treatment Not on filedocumented as of this encounter Visit Diagnoses Not on filedocumented in this encounter
--- OUTSIDE RECORDS SUMMARY | 2022-06-04 18:11 | XMS_ITS | Encounter Summary ---
:1939 Author Organization [facility] Address [address] [place] [address] Care Team Providers Name Role Phone Unavailable Primary Care Provider Unavailable Reason for Visit Reason Comments Med Refill Encounter Details Date Type Department Care Team Description 03/05/2019 Refill Division of Nephrology and Antelmo White M.D. Med Refill Hypertension in [place] [address] 1 [place] [address] [place] [address] [place], [place] [id number] [phone] Social History Tobacco Use Types Packs/Day Years [...] 05/23/2022 relatives? How often do you attend orthodoxy or pentecostalism Never 05/23/2022 services? Do you belong to any clubs or organizations such as No 05/23/2022 orthodoxy groups, unions, fraternal or athletic groups, or [...] place to sleep or slept in a correction (including now)? Education Answer Date Recorded What [...]
--- OUTSIDE RECORDS SUMMARY | 2022-06-04 18:11 | XMS_ITS | Encounter Summary ---
:1939 Author Organization [facility] Address [address] [place] [address] Care Team Providers Name Role Phone Unavailable Primary Care Provider Unavailable Reason for Visit Reason Comments Med Refill Encounter Details Date Type Department Care Team Description 09/16/2019 Refill Division of Nephrology and Antelmo White M.D. Med Refill Hypertension in [address] [address] [place] [address] [place], [place] [address] [phone] Social History Tobacco Use Types Packs/Day Years [...] 05/23/2022 relatives? How often do you attend holiness or baptist Never 05/23/2022 services? Do you belong to any clubs or organizations such as No 05/23/2022 holiness groups, unions, fraternal or athletic groups, or [...] this encounter Miscellaneous Notes Telephone Encounter - Simran Sharma, R.N. - 09/16/2019 4:29 PM CDT Prescription completed by Dr. Reese. documented in this encounter Plan of Treatment Not on filedocumented as of this encounter Visit Diagnoses Not on filedocumented in this encounter
--- OUTSIDE RECORDS SUMMARY | 2022-06-04 18:11 | XMS_ITS | Encounter Summary ---
:1940 Author Organization [facility] Address [address] [place] [address] Care Team Providers Name Role Phone Unavailable Primary Care Provider Unavailable Encounter Details Date Type Department Care Team Description 03/03/2020 Hospital Encounter Department of Hugh, Pain Hip Bilateral; Laboratory Medicine Wade Peterson Hypertension Personal History; and Pathology, [address] [place] [address] Hyperlipidemia; [facility], in [place], [place] Loss Me carlos Short Term [place], [place] [address] [place] [address] [place], [place] (Work) [phone] Social History Tobacco Use Types Packs/Day Years [...] 05/23/2022 relatives? How often do you attend cheondoism or scientology Never 05/23/2022 services? Do you belong to any clubs or organizations such as No 05/23/2022 cheondoism groups, unions, fraternal or athletic groups, or [...] Take 1 tablet (2.5 90 tablet 3 02/202012/24/2020 mg tabletIndications: mg total) by mouth Hypertension Personal daily. History carvediloL (COREG) 12.5 Take 1 tablet (12.5 180 tablet 3 02/202012/24/2020 mg tabletIndications: mg total) by mouth 2 Hypertension Personal (two) times a day History with meals. finasteride (PROSCAR) 5 Take 1 tablet (5 mg 90 tablet 3 02/202012/24/2020 mg tabletIndications: total) by mouth Benign Prostatic daily. Hyperplasia Without Obstruction losartan-hydroCHLOROthia Take 1 tablet by 90 tablet 3 03/0312/24/2020 zide (HYZAAR) 100-25 mg mouth every morning. per tabletIndications: Hypertension Personal History nitroglycerin Place 1 tablet (0.4 25 tablet 11 03/03/2020 (NITROSTAT) 0.4 mg SL mg total) under [...] 1 tablet (10 mg 90 tablet 3 02/202012/24/2020 10 mg tabletIndications: total) by mouth Coronary Artery Disease every evening. Without Angina Pectoris sertraline (ZOLOFT) 50 Take 1 tablet (50 mg 90 tablet 3 02/202012/24/2020 mg tabletIndications: total) by mouth Hypertension Essential daily. Primary tamsulosin (FLOMAX) 0.4 Take 1 capsule (0.4 90 capsule 3 02/202012/24/2020 mg 24 hr mg total) by mouth capsuleIndications: daily. 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 zolpidem (AMBIEN) 10 mg Take 1 tablet (10 mg 90 tablet 3 11/25/2020 tabletIndications: total) by mouth at Insomnia bedtime. documented as of this encounter Plan of Treatment Not on filedocumented as of this encounter Procedures Procedure Name Priority Date/Time Associated Comments Diagnosis LIPID PANEL, S Routine 03/03/2020 6:55 AM Pain Hip Bila teral Results for this CDT Hypertension procedure are i n Personal History the results Hyperlipidemia section. Loss Memory Short Term PROSTATE-SPECIFIC AG Routine 03/03/2020 6:55 AM Pain Hip Bilateral Results for this (PSA) SCRN, S CDT Hypertension procedure are in Personal History the results Hyperlipidemia section. Loss Memory Short Term CBC WITHOUT Routine 03/03/2020 6:55 AM Pain Hip Bila teral Results for this DIFFERENTIAL, B CDT Hypertension procedure ar e in Personal History the results Hyperlipidemia section. Loss Memory Short Term BUN (BLOOD UREA Routine 03/03/2020 6:55 AM Pain Hip Bila teral Results for this NITROGEN), S/P CDT Hypertension procedure are in Personal History the results Hyperlipidemia section. Loss Memory Short Term SODIUM, S/P Routine 03/03/2020 6:55 AM Pain Hip Bila teral Results for this CDT Hypertension procedure are i n Personal History the results Hyperlipidemia section. Loss Memory Short Term POTASSIUM, S/P Routine 03/03/2020 6:55 AM Pain Hip Bila teral Results for this CDT Hypertension procedure are i n Personal History the results Hyperlipidemia section. Loss Memory Short Term GLUCOSE, FASTING, Routine 03/03/2020 6:55 AM Pain Hip Bi lateral Results for this S/P CDT Hypertension procedure are i n Personal History the results Hyperlipidemia section. Loss Memory Short Term CREATININE WITH Routine 03/03/2020 6:55 AM Pain Hip Bila teral Results for this EGFR, S/P CDT Hypertension procedure are i n Personal History the results Hyperlipidemia section. Loss Memory Short Term CHLORIDE, S/P Routine 03/03/2020 6:55 AM Pain Hip Bila teral Results for this CDT Hypertension procedure are i n Personal History the results Hyperlipidemia section. Loss Memory Short Term BICARBONATE, B/S/P Routine 03/03/2020 6:55 AM Pain Hip B ilateral Results for this CDT Hypertension procedure are i n Personal History the results Hyperlipidemia section. Loss Memory Short Term documented in this encounter Results PSA (Prostate-Specific Antigen) Screen (03/03/2020 6:55 AM CDT) P athologist Signature Prostate-Specif 0.94 <=7.2 ng/mL 03/03/2020 DTL ic Ag 8:04 AM CDT Comment: ----ADDITIONAL INFORMATION---- The testing method [...] Location / / Volume Laterality Blood (Blood, 03/03/2020 6:55 AM 03/03/20 20 7:37 Venous) CDT AM CDT Antelmo Reese M.D. LAB BLOOD ADD-ON Performing Organization Address City/[facility]/ZIP Code Phon e Number [address] BUN (Blood Urea Nitrogen) (03/03/2020 6:55 AM CDT) P athologist Signature BUN (Blood Urea 23 8 - 24 03/03/2020 DTL Nitrogen), S mg/dL 7:51 AM CDT Specimen Anatomical Collection Method Collection Time Receive d Time (Source) Location / / Volume Laterality Blood (Blood, 03/03/2020 6:55 AM 03/03/20 7:37 Venous) CDT AM CDT Antelmo Reese M.D. LAB BLOOD ADD-ON Performing Organization Address [facility] Phon e Number [address] (ABNORMAL) Creatinine with Estimated GFR (03/03/2020 6:55 AM CDT) Analysis Performed At Patho logist Time Signature Creatinine 1.62 (H) 0.74 - 03/03/2020 DTL 1.35 mg/dL 8:04 AM CDT eGFR-Non 39 (L) >=60 03/03/2020 DTL Black/ mL/min/BSA 8:04 AM CDT Italian Comment: ----ADDITIONAL INFORMATION---- Estimated GFR calculated using the 2009 CKD_EPI creatinine equation. eGFR-Black/ 46 (L) >=60 mL/min/BSA 2019 8:04 AM CDT DTL Comment: ----ADDITIONAL INFORMATION---- Estimated GFR calculated using the 2009 CKD_EPI creatinine equation. Specimen Anatomical Collection Method Collection Time Receive d Time (Source) Location / / Volume Laterality Blood (Blood, 03/03/2020 6:55 AM 03/03/20 7:37 Venous) CDT AM CDT Antelmo Reese M.D. LAB BLOOD ADD-ON Performing Organization Address City/[facility]/ZIP Code Phon e Number [place] [id number] (ABNORMAL) Glucose, Fasting (03/03/2020 6:55 AM CDT) P athologist Signature Glucose, P 106 (H) 70 - 100 03/03/2020 DTL mg/dL 7:52 AM CDT Last Intake 13 hr 03/03/2020 DTL 7:38 AM CDT Specimen Anatomical Collection Method Collection Time Receive d Time (Source) Location / / Volume Laterality Blood (Blood, 03/03/2020 6:55 AM 03/03/20 7:38 Venous) CDT AM CDT Antelmo Reese M.D. LAB BLOOD NON ADD-ON Performing Organization Address City/State/ZIP Code Phon e Number [phone] Bicarbonate (03/03/2020 6:55 AM CDT) athologist Signature Bicarbonate, S 26 22 - 29 03/03/2020 DTL mmol/L 7:51 AM CDT Specimen Anatomical Collection Method Collection Time Receive d Time (Source) Location / / Volume Laterality Blood (Blood, 03/03/2020 6:55 AM 03/03/20 20 7:37 Venous) CDT AM CDT Antelmo Reese M.D. LAB BLOOD ADD-ON Performing Organization Address City/State/ZIP Code Phon e Number [facility] - [address] [place] [address] (ABNORMAL) CBC without Differential (03/03/2020 6:55 AM CDT) Patholo gist Method Time Signature Hemoglobin 12.7 (L) 13.2 - 03/03/2020 DTL 16.6 g/dL 7:51 AM CDT Hematocrit 38.6 38.3 - 03/03/2020 DTL 48.6 % 7:51 AM CDT Erythrocytes 4.26 (L) 4.35 - 03/03/2020 DTL 5.65 7:51 AM CDT x10(12)/L MCV 90.6 78.2 - 03/03/2020 DTL 97.9 fL 7:51 AM CDT RBC Distrib Width 13.0 11.8 - 03/03/2020 DTL 14.5 % 7:51 AM CDT Platelet Count 188 135 - 317 03/03/2020 DTL x10(9)/L 7:51 AM CDT Leukocytes 6.5 3.4 - 9.6 03/03/2020 DTL x10(9)/L 7:51 AM CDT Specimen Anatomical Collection Method Collection Time Receive d Time (Source) Location / / Volume Laterality Blood (Blood, 03/03/2020 6:55 AM 03/03/20 20 7:21 Venous) CDT AM CDT Antelmo Reese M.D. LAB BLOOD ADD-ON Performing Organization Address City/[facility] Phon e Number [facility] - [address] Chloride (03/03/2020 6:55 AM CDT) athologist Signature Chloride, S 100 98 - 107 03/03/2020 DTL mmol/L 7:51 AM CDT Specimen Anatomical Collection Method Collection Time Receive d Time (Source) Location / / Volume Laterality Blood (Blood, 03/03/2020 6:55 AM 03/03/20 20 7:37 Venous) CDT AM CDT Antelmo Reese M.D. LAB BLOOD ADD-ON Performing Organization Address City/[facility] Phon e Number [facility] - [address] Lipid Panel (03/03/2020 6:55 AM CDT) P athologist Signature Cholesterol, 123 mg/dL 03/03/2020 DTL Total 8:04 AM CDT Comment: ----REFERENCE VALUE---- Desirable: < 200 Borderline high: 200 - 239 High: > or = 240 Triglycerides 66 mg/dL 03/03/2020 8:04 AM CDT DTL Comment: ----REFERENCE VALUE---- Normal: <150 Borderline high: 150-199 High: 200-499 Very high: > or =500 Cholesterol, HDL, S 67 >=40 mg/dL 03/03/2020 8:04 AM CDT DTL Calculated LDL 43 mg/dL 03/03/2020 8:04 AM CDT DT L Comment: ----REFERENCE VALUE---- Desirable: <100 Above Desirable: 100-129 Borderline high: 130-159 High: 160-189 Very high: > or =190 Cholesterol, Non-HDL, Calculated 56 mg/dL 020 8:04 AM CDT DTL Comment: ----REFERENCE VALUE---- Desirable: <130 Above Desirable: 130-159 Borderline high: 160-189 High: 190-219 Very high: > or =220 Specimen Anatomical Collection Method Collection Time Receive d Time (Source) Location / / Volume Laterality Blood (Blood, 03/03/2020 6:55 AM 03/03/20 20 7:37 Venous) CDT AM CDT Antelmo Reese M.D. LAB BLOOD ADD-ON Performing Organization Address City/State/[facility] Phon e Number [facility] - [address] [facility] Sodium (03/03/2020 6:55 AM CDT) athologist Signature Sodium, S 138 135 - 145 03/03/2020 7:51 DTL mmol/L AM CDT Specimen Anatomical Collection Method Collection Time Receive d Time (Source) Location / / Volume Laterality Blood (Blood, 03/03/2020 6:55 AM 03/03/20 20 7:37 Venous) CDT AM CDT Antelmo Reese M.D. LAB BLOOD ADD-ON Performing Organization Address City/[facility] Phon e Number [facility] - [address] Potassium (03/03/2020 6:55 AM CDT) athologist Signature Potassium, S 4.5 3.6 - 5.2 03/03/2020 DTL mmol/L 7:51 AM CDT Specimen Anatomical Collection Method Collection Time Receive d Time (Source) Location / / Volume Laterality Blood (Blood, 03/03/2020 6:55 AM 03/03/20 20 7:37 Venous) CDT AM CDT Antelmo Reese M.D. LAB BLOOD ADD-ON Performing Organization Address City/State/[facility] Code Phon e Number [facility] - [address] [place], [place] [address] [facility] [place] [address] Laboratories-[facility] [address] documented in this encounter Visit Diagnoses Diagnosis Pain Hip Bilateral Hypertension Personal History Hyperlipidemia Loss Memory Short Term documented in this encounter Additional Health Concerns Assessment Noted Time PHQ-9 Depression Total Score: 3 03/03/2020 8:00 AM CDT documented as of this encounter
--- OUTSIDE RECORDS SUMMARY | 2022-06-04 18:11 | XMS_ITS | Encounter Summary ---
:1940 Author Organization [facility] Address [address] [place] [address] Care Team Providers Name Role Phone Unavailable Primary Care Provider Unavailable Encounter Details Date Type Department Care Team Description 01/27/2020 Orders Only Division of Nephrology Antelmo Reese in Hip Bilateral and Hypertension in R, M.D. (Primary Dx) [place], [place] [address] [facility] [address] [place] [address] [phone] Social History Tobacco Use Types Packs/Day Years [...] How often do you attend lutheran or islam Never 05/23/2022 services? Do you belong to [...] documented as of this encounter Progress Notes Antelmo Reese M.D. - 01/27/2020 8:52 AM CDT Conrad. March 03 at 9:45 a.m. Usual labs. Thanks documented in this encounter Plan of Treatment Not on filedocumented as of this encounter Visit Diagnoses Diagnosis Pain Hip Bilateral - Primary documented in this encounter
--- OUTSIDE RECORDS SUMMARY | 2022-06-04 18:11 | XMS_ITS | Encounter Summary ---
:1939 Author Organization [facility] Address [address] [place] [address] Care Team Providers Name Role Phone Unavailable Primary Care Provider Unavailable Reason for Visit Reason Onset Date Comments Prescription mailed to patient 07/07/2019 Encounter Details Date Type Department Care Team Description 07/07/2019 Clinical Division of Sona Reese ma Communication Nephrology and Antelmo Clayton M.D. to patient Hypertension in [address] [place] [address] [place] [address] [place], [place] [phone] (Work) [phone] Social History Tobacco Use Types Packs/Day Years [...] How often do you attend yarsani or christianity Never 05/23/2022 services? Do you [...] Notes Telephone Encounter - Josue Purvis - 07/07/2019 12:40 PM CST Prescription for tramadol (Ultram) 50 mg was mailed to patient. [employer] documented in this encounter Plan of Treatment Not on filedocumented as of this encounter Visit Diagnoses Not on filedocumented in this encounter
--- OUTSIDE RECORDS SUMMARY | 2022-06-04 18:11 | XMS_ITS | Encounter Summary ---
:1939 Author Organization [facility] Address [address] [place] [address] Care Team Providers Name Role Phone Unavailable Primary Care Provider Unavailable Encounter Details Date Type Department Care Team Description 09/15/2019 Orders Only Division of Nephrology and Ghulam Reese, Hypertension in [facility] [address] [facility] [address] [place] [phone] (Wo rk) Social History Tobacco Use Types [...] 05/23/2022 relatives? How often do you attend orthodox or protestant Never 05/23/2022 services? Do you belong to any clubs or organizations such as No 05/23/2022 orthodox groups, unions, fraternal or athletic groups, [...]
--- OUTSIDE RECORDS SUMMARY | 2022-06-04 18:11 | XMS_ITS | Encounter Summary ---
:1939 Author Organization [facility] Address [address] [place] [address] Care Team Providers Name Role Phone Unavailable Primary Care Provider Unavailable Reason for Visit Reason Comments Med Refill Encounter Details Date Type Department Care Team Description 05/06/2019 Refill Division of Nephrology and Antelmo White M.D. Med Refill Hypertension in [place] [address] 1 [place] [address] [place] [address] [place], [place] [id number] [phone] Social History Tobacco Use Types Packs/Day Years [...] How often do you attend samaritan or mormonism Never 05/23/2022 services? Do you [...]
--- OUTSIDE RECORDS SUMMARY | 2022-06-04 18:11 | XMS_ITS | Encounter Summary ---
:1939 Author Organization [facility] Address [address] [place] [address] Care Team Providers Name Role Phone Unavailable Primary Care Provider Unavailable Reason for Visit Reason Comments Med Refill Encounter Details Date Type Department Care Team Description 09/05/2019 Refill Division of Nephrology and Antelmo White M.D. Med Refill Hypertension in [address] [address] [place] [address] [place], [place] [address] [phone] Social History Tobacco Use Types Packs/Day Years [...] How often do you attend religion or episcopal Never 05/23/2022 services? Do you [...] of this encounter Visit Diagnoses Diagnosis Insomnia - Primary Stroke (HCC) documented in this encounter
--- OUTSIDE RECORDS SUMMARY | 2022-06-04 18:11 | XMS_ITS | Encounter Summary ---
:1940 Author Organization [facility] Address [address] [place] [address] Care Team Providers Name Role Phone Unavailable Primary Care Provider Unavailable Reason for Visit Appointment Request (Routine) - Closed Specialty Diagnoses / Procedures Referred By Contact Refer red To Contact Dermatology Referral ID Status Reason Start Date Expiration Date Visits Requ ested Visits Authorized [id number] Closed 12/20/2018 12/20/2019 1 Encounter Details Date Type Department Care Team Description 03/07/2019 Office Visit Department of Oziel Castillo Tumor Ski n Uncertain Behavior (Primary Dx); Dermatology in P, M.D. Keratosis Act inic; [place], [place] Nevi Multiple; [address] [place] [address] [place] [address] Social History Tobacco Use Types Packs/Day Years [...] How often do you attend taoism or denominational Never 05/23/2022 services? Do you belong to any clubs or organizations such as Lou 05/23/2022 taoism groups, unions, fraternal or athletic [...] CDT documented as of this encounter Consult Oziel Alfonso M.D. 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 Castillo Supervised by Dr. Ellie Scott HISTORY OF PRESENT ILLNESS Mr. Familia Merrill is a 78 y.o. male who presents today for a skin cancer screening examination. Mr. 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 He has no prior h istory of skin cancer. The patient is concerned about a spot on his left jawline. The patient otherwise denies any painful, itching, changing or bleeding lesions. Family history is negative for melanoma. REVIEW OF SYSTEMS No other cutaneous complaints. PAST MEDICAL HISTORY no personal history of skin cancer. FAMILY HISTORY As above. PHYSICAL EXAM General: Awake, alert, in no acute distress, and with appropriate affect. Skin: I have examined the scalp, face, neck, chest, abdomen, back, bilateral upper extremities, and bilateral lower extremities, and buttocks and groin excluding the genitalia per patient request. There are multiple brown macules with even pigmentation and borders. There are stuck on waxy montano to brownpapules and plaques. There are numerous erythematous gritty macules over the face and forearms. There is a asymmetric dark brown macule on the sternum with irregular blotches of pigment among a reticular network. Involving the right upper abdomen there is a well-healed linear surgical scar. There is asoft mobile subcutaneous nodule on the right forehead as well as on the right forearm. ASSESSMENT / PLAN #1 Skin tumor of uncertain behavior, sternum Differential dx: Atypical nevus, rule out melanoma Photographs obtained. Shave biopsy performed. CONSENT Discussed the risks, benefits, alternatives, and the necessity of other members of the healthcare team participating in the procedure. All questions answered and consent given. UNIVERSAL PROTOCOL Procedural pause conducted to verify: correct patient identity, procedure to be performed, and as applicable, correct side and site, correct patient position, and availability of implants, special equipment, or special requirements. PROCEDURE INFORMATION Shave biopsy. We explained the potential diagnosis and recommended that we obtain a biopsy. The risks and benefitsof the procedure were discussed, and the patient consented to these procedures. Using 1% lidocaine with epinephrine for local anesthesia, a shave biopsy was obtained from the sternum. Biopsy submitted to Dermatopathology for H&E. Special stains will be performed as indicated. The bleeding was well controlled with application of aluminum chloride. Dressing was applied, and wound care instructions were explained. Biopsy results and any further recommendations will be communicated to the patient byletter. Patient given pamphlet [id number]. #2 Skin cancer screening examination #3 Dermatoheliosis #4 Multiple nevi #5 Actinic keratoses times 8 Given the precancerous nature of this lesion(s), treatment is medically indicated. After discussion of the risks, benefits and alternatives to treatment with cryotherapy, informed consent was obtained.We treated a total of 8 lesion(s) with two 20-second freeze-thaw cycles of liquid nitrogen cryotherapy. The patient tolerated the procedure well. Aftercare instructions were provided in written and verbal form to the patient. Should any of these lesions recur, the patient should return for biopsy or further evaluation. Discussed the risks, benefits, alternatives, and the necessity of other members ofthe healthcare team participating in the procedure. All questions answered and consent given. #6 Seborrheic keratoses The benign nature of the skin lesion(s) was discussed with the patient. No treatment is required. I recommend continued observation. Should symptoms or changes develop related to this condition, I would recommend a return visit for reassessment. All questions answered. INFORMED CONSENT Discussed the risks, benefits, alternatives, and the necessity of other members of the healthcare team participating in the procedure. All questions answered and consent given. PATIENT EDUCATION Ready to learn. No apparent learning barriers were identified. Learning preferences include listening. Explained diagnosis and treatment plan; patient/guardian of patient expressed understanding of thecontent. Associated attestation - Ellie Scott M.D. - 03/07/2019 5:26 PM CDT I was present during all critical and albarado portions of the procedure(s) and immediately available to furnish services the entire duration. See resident note for details. documented in this encounter Plan of Treatment Not on filedocumented as of this encounter Procedures Procedure Name Priority Date/Time Associated Diagnosis Comme nts DERMATOPATHOLOGY Routine 03/07/2019 4:13 PM Resul ts for this CDT procedure are i n the results section. documented in this encounter Results Dermatopathology (03/07/2019 4:13 PM CDT) Component Value Ref Test Analysis Performed Pathologis t Range Method Time At Signature Gross Description Received in formalin labeled with the patient's n beverly, 03/14/2019 medical record number, and sternum is a 1.2 x 0.5 x 0.1 3:42 PM cm montano-white skin shave biopsy. ??There is a 0.3 x 0.2 cm CDT pale montano brown pigmented lesion centrally located on the skin surface. ??Specimen is bisected and submitted entirely in cassette A1. ??Grossed by JT. Participated in Gold Reyes, 03/14/2019 the B.Med.-Pathology 3:42 PM Interpretation Fellow CDT Report Sandeep Jolley 03/14/2019 electronically Yaw Biswas 3:42 PM signed by CDT 03/14/2019 3:42 PM CDT Disclaimer This test was developed and its performance characteri [facility] 03/14/2019 determined by [facility] in a manner consistent with CLIA 3:42 PM requirements. This test has not been cleared or approved by CDT the U.S. Food and Drug Administration. Interpretation FINAL DIAGNOSIS 03/14/2019 A. ??Sternum, Skin shave biopsy: ??Solar lentigo 3:42 PM COMMENT CDT Melan A stain demonstrates a normal distribution and number of melanocytes in sun-damaged skin. Specimen (Source) Anatomical Collection Method Collection Time Re ceived Time Location / / Volume Laterality Skin (Sternum) 03/07/2019 4:13 PM CDT Narrative This result has an attachment that is no t available. Oziel Castillo M.D. LAB PATH DERM ORDERABLES Performing Organization Address City/State/ZIP Code Phon e Number [facility] - [address] [place], [place] [address] [facility] documented in this encounter Visit Diagnoses Diagnosis Tumor Skin Uncertain Behavior - Primary Keratosis Actinic Nevi Multiple Keratosis Seborrheic documented in this encounter
--- OUTSIDE RECORDS SUMMARY | 2022-06-04 18:11 | XMS_ITS | Encounter Summary ---
:1940 Author Organization [facility] Address [address] [place] [address] Care Team Providers Name Role Phone Unavailable Primary Care Provider Unavailable Reason for Referral Outpatient (Routine) - Closed Specialty Diagnoses / Procedures Referred By Contact Refer red To Contact Nephrology and Diagnoses Pain Hip B[facility] [address] [place] [address] Referral ID Status Reason Start Date Expiration Date Visits Requ ested Visits Authorized [id number] Closed 03/12/2019 03/11/2020 1 1 Scheduling Instructions Schedule at patient's earliest convenien ce. Encounter Details Date Type Department Care Team Description 03/11/2019 Clinical Communication Division of Nephrology Aurelia Marcial, and Hypertension in [place], [place] [address] [place] [address] [address] [place] [phone] [phone] Social History Tobacco Use Types Packs/Day Years [...] How often do you attend zoroastrianism or christianity Never 05/23/2022 services? Do you [...] Telephone Encounter - Antelmo Reese M.D. - 03/11/2019 5:20 PM CDT Conrad. He we will not be returning for year. I think you should make an appointment to see him. Thanks. documented in this encounter Plan of Treatment Scheduled Referrals Name Type Priority Associated Order Schedule Diagnoses Nephrology nurse Outpatient Referral Routine Pain Hip Bilatera l Expected: visit (clinic) 03/12/2019 (Approximate), Expires: 03/11/2022 documented as of this encounter Visit Diagnoses Diagnosis Pain Hip Bilateral - Primary documented in this encounter
--- OUTSIDE RECORDS SUMMARY | 2022-06-04 18:11 | XMS_ITS | Encounter Summary ---
:1940 Author Organization [facility] Address [address] [place] [address] Care Team Providers Name Role Phone Unavailable Primary Care Provider Unavailable Reason for Referral Outpatient (Routine) - Closed Specialty Diagnoses / Procedures Referred By Contact Refer red To Contact Nephrology and Diagnoses Pain Hip Bilateral Antelmo Reese [facility] Hypertension M.DChristian [address] [place] [address] Referral ID Status Reason Start Date Expiration Date Visits Requ ested Visits Authorized [id number] Closed 03/14/2019 03/13/2020 1 1 Scheduling Instructions COORDINATE WITH RETURN VISIT WITH DR. FLOWER LEONARD. SAME DAY, PRIOR TO MD APPT Reason for Visit Reason Comments Chronic Pain Outpatient (Routine) - Closed Specialty Diagnoses / Procedures Referred By Contact Refer red To Contact Nephrology and Diagnoses Pain Hip Bilateral Antelmo Reese [facility] Hypertension M.DChristian [address] [place] [address] Referral ID Status Reason Start Date Expiration Date Visits Requ ested Visits Authorized [id number] Closed 03/12/2019 03/11/2020 1 1 Encounter Details Date Type Department Care Team Description 03/14/2019 Nurse Only Division of Nephrology and Antelmo White M.D. [address] [place] [address] Chronic Pain Hypertension in [place], [place]annah Marcial S, R.N. [address] [place] [phone] [place] [address] [place], [place] [phone] Social History Tobacco Use Types Packs/Day [...] How often do you attend mormon or protestant Never 05/23/2022 services? Do you [...] - Inhaled Oxygen Concentration - - Weight 86.7 kg (191 lb 2.2 oz) 03/14/2019 10:11 AM CDT Height - - Body Mass Index 26.32 03/07/2019 1:34 PM CDT documented in this encounter Progress Notes Savannah Marcial R.N. - 03/14/2019 10:30 AM CDT Provider: Dr. Reese Reason for Visit: Chronic opioid therapy Patient with a history of: stroke, CAD, atrial fibrillation, hypertension, bilateral hip pain Date of last visit: 03/07/[address] Reese Requested medication and dosage: tramadol 50 mg, one tablet every 12 hours as needed. He tells me that he does not necessarily take the tramadol 12 hours apart, but usually uses one tab in the early afternoon and one again in the evening. Date of last renewal: Dr. Reese provided a prescription dated 03/31/2019 Number of tablets remainin Average number of tablets per day: 2, he feels that this dosage makes his pain tolerable, and he is able to enjoy his day to day life. Side effects: None Pain location and description: bilateral buttock pain Current pain ratin Controlled substance agreement on file: signed by Mr. Merrill and Dr. Reese 03/14/19. Opioid Assessment Scores: PEG Total Score: 1.33 (03/14/2019 10:00 AM) ORT Total Score (max 26): 6 (03/14/2019 10:00 AM) PHQ-9 Total Score (max 27): 0 (03/14/2019 10:00 AM) RUTH-7 Total Score (max 21): 0 (03/14/2019 10:00 AM) PDMP Reviewed: No review date on file. Last Urine Toxicology Results: No results found for this or any previous visit. PLAN The Opioid Action Plan will be reviewed and updated by prescriber. The above information will be shared with the prescriber. See Education History for completed patient education. documented in this encounter Plan of Treatment Scheduled Referrals Name Type Priority Associated Order Schedule Diagnoses Nephrology nurse Outpatient Referral Routine Pain Hip Bilatera l Expected: visit (clinic) 03/14/2020 (Approximate), Expires: 03/14/2022 documented as of this encounter Visit Diagnoses Diagnosis Pain Hip Bilateral documented in this encounter
--- OUTSIDE RECORDS SUMMARY | 2022-06-04 18:11 | XMS_ITS | Encounter Summary ---
:1940 Author Organization [facility] Address [address] [place] [address] Care Team Providers Name Role Phone Unavailable Primary Care Provider Unavailable Reason for Referral Outpatient (Routine) - Closed Specialty Diagnoses / Procedures Referred By Contact Refer red To Contact Nephrology and Diagnoses Pain Hip Bilateral Hypertension Personal History Hyperlipidemia Loss Memory Short Term [facility] [place] [address] [place] [phone] Referral ID Status Reason Start Date Expiration Date Visits Requ ested Visits Authorized [id number] Closed 01/02/2020 01/01/2021 1 1 Reason for Visit Reason Comments Pre-visit Testing Orders Encounter Details Date Type Department Care Team Description 01/02/2020 Clinical Communication Division of Toney Reese Testing Nephrology and Antelmo Clayton M.D. Orders Hypertension in [address] [place] [address] [place] [address] [place], [place] [phone] (Work) [phone] Social History Tobacco Use Types Packs/Day Years [...] How often do you attend advent or pentecostal Never 05/23/2022 services? Do you belong to [...] Notes Telephone Encounter - Adalgisa Guillen - 01/02/2020 8:16 AM CDT Please sign October orders Thank you documented in this encounter Plan of Treatment Scheduled Referrals Name Type Priority Associated Order Schedule Diagnoses Nephrology and Outpatient Referral Routine Pain Hip Delio ateral Expected: Hypertension office Hypertension 03/25/20 20 visit (clinic) Personal History (Approximate), Hyperlipidemia Expires: Loss Memory Short 03/25/2023 Term documented as of this encounter Results Urinalysis with Microscopic: Urine, Clean Catch (03/03/2020 7:37 AM CDT) [facility] Method Time Signature Source Midstream 03/03/2020 ANDREEA 7:37 AM CDT Appearance Normal Normal 03/03/2020 ANDREEA 8:44 AM CDT Osmolality, U 475 150 - 1150 03/03/2020 ANDREEA mOsm/kg 8:45 AM CDT pH, U 6.2 4.5 - 8.0 03/03/2020 ANDREEA 8:45 AM CDT Comment: ----ADDITIONAL INFORMATION---- This test was developed and its performa nce characteristics determined by [facility] in a manner co nsistent with CLIA requirements. This test has not bee n cleared or approved by the U.S. Food and Drug Admin istration. Glucose 6 0 - 15 mg/dL 03/03/2020 8:44 AM CDT ANDREEA Protein, U 7 <26 mg/dL 03/03/2020 8:44 AM CDT ANDREEA Comment: ----ADDITIONAL INFORMATION---- On 12/19/2016 the total protein assay me thod changed resulting in approximately a 15% increase in prote in values. Protein/Osmolality 0.15 <0.42 Ratio 03/03/2020 8:45 AM CDT ANDREEA Comment: ----ADDITIONAL INFORMATION---- On 12/19/2016 the total protein assay me thod changed resulting in approximately a 15% increase in prote in values. Predicted 24 Hr Protein 152 mg/24 h 03/03/2020 8:45 AM CDT ANDREEA Predicted Range 48-478 mg/24 h 03/03/2020 8:45 AM CDT R SPEEDY Hemoglobin, QL Negative Negative 03/03/2020 9:13 AM CDT RE NA Specimen Anatomical Collection Method Collection Time Receive d Time (Source) Location / / Volume Laterality Urine (Urine, 03/03/2020 7:37 AM 03/03/20 20 7:37 Clean Catch) CDT AM CDT Antelmo Reese M.D. LAB URINE ORDERABLES Performing Organization Address City/State/ZIP Code Phon e Number [facility] - [address] [place], [place] [address] [facility] [place] [address] Laboratories-[facility] [address] PSA (Prostate-Specific Antigen) Screen (03/03/2020 6:55 AM [...] LAB BLOOD ADD-ON Performing Organization Address City/[facility] Phon e Number [facility] - [address] BUN (Blood Urea Nitrogen) (03/03/2020 6:55 AM CDT) P athologist Signature BUN (Blood Urea 23 8 - 24 03/03/2020 DTL Nitrogen), S mg/dL 7:51 AM CDT Specimen Anatomical Collection Method Collection Time Receive d Time (Source) Location / / Volume Laterality Blood (Blood, 03/03/2020 6:55 AM 03/03/20 7:37 Venous) CDT AM CDT Antelmo Reese M.D. LAB BLOOD ADD-ON Performing Organization Address City/[facility] Phon e Number [facility] - [address] (ABNORMAL) Creatinine with Estimated GFR (03/03/2020 6:55 AM CDT) Analysis Performed At Patho logist Time Signature Creatinine 1.62 (H) 0.74 - 03/03/2020 DTL 1.35 mg/dL 8:04 AM CDT eGFR-Non 39 (L) >=60 03/03/2020 DTL Black/ mL/min/BSA 8:04 AM CDT Taiwanese Comment: ----ADDITIONAL INFORMATION---- Estimated GFR calculated using [...] LAB BLOOD ADD-ON Performing Organization Address City/[facility]/ZIP Code Phon e Number [facility] - [address] [address] Laboratories-[address] (ABNORMAL) Glucose, Fasting (03/03/2020 6:55 AM [...] LAB BLOOD NON ADD-ON Performing Organization Address City/[facility]/ZIP Code Phon e Number [facility] - [address] [address] [facility]-[address] Bicarbonate (03/03/2020 6:55 AM CDT) P athologist Signature Bicarbonate, S 26 22 - 29 03/03/2020 DTL mmol/L 7:51 AM CDT Specimen Anatomical Collection Method Collection Time Receive d Time (Source) Location / / Volume Laterality Blood (Blood, 03/03/2020 6:55 AM 03/03/20 7:37 Venous) CDT AM CDT Antelmo Reese M.D. LAB BLOOD ADD-ON Performing Organization Address City/[facility]/ZIP Code Phon e Number [facility] - [address] [address] [facility] 200 [facility] (ABNORMAL) CBC without Differential (03/03/2020 6:55 AM [...] Address City/State/ZIP Code Phon e Number [facility] [address] Chloride (03/03/2020 6:55 AM CDT) P athologist Signature Chloride, S 100 98 - 107 03/03/2020 DTL mmol/L 7:51 AM CDT Specimen Anatomical Collection Method Collection Time Receive d Time (Source) Location / / Volume Laterality Blood (Blood, 03/03/2020 6:55 AM 03/03/20 20 7:37 Venous) CDT AM CDT Antelmo Reese M.D. LAB BLOOD ADD-ON Performing Organization Address City/State/ZIP Code Phon e Number [facility] [address] [place] [address] Laboratories-[facility] [address] [facility] Lipid Panel (03/03/2020 6:55 AM CDT) athologist Signature Cholesterol, 123 mg/dL 03/03/2020 DTL [...] Address City/State/ZIP Code Phon e Number [facility] - [address] [place], [place] [address] [facility] [place] [place] [address] Laboratories-[facility] [address] [facility] Sodium (03/03/2020 6:55 AM CDT) athologist Signature Sodium, S 138 135 - 145 03/03/2020 7:51 DTL mmol/L AM CDT Specimen Anatomical Collection Method Collection Time Receive d Time (Source) Location / / Volume Laterality Blood (Blood, 03/03/2020 6:55 AM 03/03/20 20 7:37 Venous) CDT AM CDT Antelmo Reese M.D. LAB BLOOD ADD-ON Performing Organization Address City/State/ZIP Code Phon e Number [facility] - [address] Potassium (03/03/2020 6:55 AM CDT) P athologist Signature Potassium, S 4.5 3.6 - 5.2 03/03/2020 DTL mmol/L 7:51 AM CDT Specimen Anatomical Collection Method Collection Time Receive d Time (Source) Location / / Volume Laterality Blood (Blood, 03/03/2020 6:55 AM 03/03/20 7:37 Venous) CDT AM CDT Antelmo Reese M.D. LAB BLOOD ADD-ON Performing Organization Address City/[facility]/ZIP Code Phon e Number [facility] - [address] documented in this encounter Visit Diagnoses Diagnosis Pain Hip Bilateral - Primary Hypertension Personal History Hyperlipidemia Loss Memory Short Term documented in this encounter
--- OUTSIDE RECORDS SUMMARY | 2022-06-04 18:11 | XMS_ITS | Encounter Summary ---
:1940 Author Organization [facility] Address [address] [place] [address] Care Team Providers Name Role Phone Unavailable Primary Care Provider Unavailable Encounter Details Date Type Department Care Team Description 03/07/2019 Hospital Encounter Department of Javon Reese Personal History; Laboratory Medicine Wade Peterson Hyperlipidemia; and Pathology, [address] [place] [address] Memory Short Term; [facility], in [place], [place] Coronar y Artery Disease (Unspecified) [place], [place] [address] [place] [address] [place], [place] (Work) [phone] Social History Tobacco Use [...] How often do you attend yazidism or moravian Never 05/23/2022 services? Do you belong to [...] Diagnosis Comme nts LIPID PANEL, S Routine 03/07/2019 9:34 AM Hypertension Persona l Results for this CDT History procedure are in Hyperlipidemia the results Loss Memory Short section. Term Coronary Artery Disease (Unspecified) CBC WITHOUT Routine 03/07/2019 9:34 AM Hypertension Personal Results for this DIFFERENTIAL, B CDT History procedure are in Hyperlipidemia the results Loss Memory Short section. Term Coronary Artery Disease (Unspecified) BUN (BLOOD UREA Routine 03/07/2019 9:34 AM Hypertension Person al Results for this NITROGEN), S/P CDT History procedure are in Hyperlipidemia the results Loss Memory Short section. Term Coronary Artery Disease (Unspecified) SODIUM, S/P Routine 03/07/2019 9:34 AM Hypertension Personal Results for this CDT History procedure are in Hyperlipidemia the results Loss Memory Short section. Term Coronary Artery Disease (Unspecified) POTASSIUM, S/P Routine 03/07/2019 9:34 AM Hypertension Persona l Results for this CDT History procedure are in Hyperlipidemia the results Loss Memory Short section. Term Coronary Artery Disease (Unspecified) GLUCOSE, FASTING, Routine 03/07/2019 9:34 AM Hypertension Pers onal Results for this S/P CDT History procedure are in Hyperlipidemia the results Loss Memory Short section. Term Coronary Artery Disease (Unspecified) CREATININE WITH Routine 03/07/2019 9:34 AM Hypertension Person al Results for this EGFR, S/P CDT History procedure are in Hyperlipidemia the results Loss Memory Short section. Term Coronary Artery Disease (Unspecified) CHLORIDE, S/P Routine 03/07/2019 9:34 AM Hypertension Personal Results for this CDT History procedure are in Hyperlipidemia the results Loss Memory Short section. Term Coronary Artery Disease (Unspecified) BICARBONATE, B/S/P Routine 03/07/2019 9:34 AM Hypertension Per soto Results for this CDT History procedure are in Hyperlipidemia the results Loss Memory Short section. Term Coronary Artery Disease (Unspecified) documented in this encounter Results (ABNORMAL) BUN (Blood Urea Nitrogen) (03/07/2019 9:34 AM CDT) P athologist Signature BUN (Blood Urea 26 (H) 8 - 24 03/07/2019 Nitrogen), S mg/dL 10:34 AM CDT Specimen Anatomical Collection Method Collection Time Receive d Time (Source) Location / / Volume Laterality Blood (Blood, 03/07/2019 9:34 AM 03/07/20 19 9:52 Venous) CDT AM CDT Antelmo Reese M.D. LAB BLOOD ADD-ON Performing Organization Address City/State/ZIP Code Phon e Number [facility] - [address] [place], [place] [address] [facility] (ABNORMAL) Creatinine with Estimated GFR (03/07/2019 9:34 AM CDT) Analysis Performed At [facility] logist Time Signature Creatinine 1.46 (H) 0.74 - 03/07/2019 1.35 mg/dL 10:34 AM CDT eGFR-Non 45 (L) >=60 03/07/2019 Black/ mL/min/BSA 10:34 AM CDT Guamanian Comment: ----ADDITIONAL INFORMATION---- Estimated GFR calculated using the 2009 CKD_EPI creatinine equation. eGFR-Black/ 52 (L) >=60 mL/min/BSA 2018 10:34 AM CDT Comment: ----ADDITIONAL INFORMATION---- Estimated GFR calculated using the 2009 CKD_EPI creatinine equation. Specimen Anatomical Collection Method Collection Time Receive d Time (Source) Location / / Volume Laterality Blood (Blood, 03/07/2019 9:34 AM 03/07/20 9:52 Venous) CDT AM CDT Antelmo Reese M.D. LAB BLOOD ADD-ON Performing Organization Address City/[facility]/ZIP Code Phon e Number [facility] - [address] [place] [address] [facility] (ABNORMAL) Glucose, Fasting (03/07/2019 9:34 AM CDT) P athologist Signature Glucose, P 112 (H) 70 - 100 03/07/2019 mg/dL 10:26 AM CDT Last Intake 16 hr 03/07/2019 9:52 AM CDT Specimen Anatomical Collection Method Collection Time Receive d Time (Source) Location / / Volume Laterality Blood (Blood, 03/07/2019 9:34 AM 03/07/20 19 9:52 Venous) CDT AM CDT Antelmo Reese M.D. LAB BLOOD NON ADD-ON Performing Organization Address City/[facility]/ZIP Code Phon e Number [facility] - [address] [place] [address] 05 [facility] Bicarbonate (03/07/2019 9:34 AM CDT) P athologist Signature Bicarbonate, S 27 22 - 29 03/07/2019 mmol/L 10:34 AM CDT Specimen Anatomical Collection Method Collection Time Receive d Time (Source) Location / / Volume Laterality Blood (Blood, 03/07/2019 9:34 AM 03/07/20 19 9:52 Venous) CDT AM CDT Antelmo Reese M.D. LAB BLOOD ADD-ON Performing Organization Address City/[facility]/ZIP Code Phon e Number [facility] - [address] [place] [address] [facility] CBC without Differential (03/07/2019 9:34 AM CDT) athologist Signature Hemoglobin 13.3 13.2 - 03/07/2019 16.6 g/dL 10:04 AM CDT Hematocrit 39.7 38.3 - 03/07/2019 48.6 % 10:04 AM CDT Erythrocytes 4.40 4.35 - 03/07/2019 5.65 10:04 AM CDT x10(12)/L MCV 90.2 78.2 - 03/07/2019 97.9 fL 10:04 AM CDT RBC Distrib Width 12.7 11.8 - 03/07/2019 14.5 % 10:04 AM CDT Platelet Count 176 135 - 317 03/07/2019 x10(9)/L 10:04 AM CDT Leukocytes 6.7 3.4 - 9.6 03/07/2019 x10(9)/L 10:04 AM CDT Specimen Anatomical Collection Method Collection Time Receive d Time (Source) Location / / Volume Laterality Blood (Blood, 03/07/2019 9:34 AM 03/07/20 19 9:52 Venous) CDT AM CDT Antelmo Reese M.D. LAB BLOOD ADD-ON Performing Organization Address City/[facility] Code Phon e Number [facility] - [address] Chloride (03/07/2019 9:34 AM CDT) [facility] Chloride, S 98 98 - 107 03/07/2019 mmol/L 10:34 AM CDT Specimen Anatomical Collection Method Collection Time Receive d Time (Source) Location / / Volume Laterality Blood (Blood, 03/07/2019 9:34 AM 03/07/20 19 9:52 Venous) CDT AM CDT Antelmo Reese M.D. LAB BLOOD ADD-ON Performing Organization Address [facility] Phon e Number [facility] - [address] [place] [address] 05 [facility] Lipid Panel (03/07/2019 9:34 AM CDT) athologist [facility] Cholesterol, 128 mg/dL 03/07/2019 Total 10:34 AM CDT Comment: ----REFERENCE VALUE---- Desirable: < 200 Borderline high: 200 - 239 High: > or = 240 Triglycerides 69 mg/dL 03/07/2019 10:34 AM CDT Comment: ----REFERENCE VALUE---- Normal: <150 Borderline high: 150-199 High: 200-499 Very high: > or =500 Cholesterol, HDL, S 64 >=40 mg/dL 03/07/2019 10:34 AM CDT Calculated LDL 50 mg/dL 03/07/2019 10:34 AM CDT Comment: ----REFERENCE VALUE---- Desirable: <100 Above Desirable: 100-129 Borderline high: 130-159 High: 160-189 Very high: > or =190 Cholesterol, Non-HDL, Calculated 64 mg/dL 019 10:34 AM CDT Comment: ----REFERENCE VALUE---- Desirable: <130 Above Desirable: 130-159 Borderline high: 160-189 High: 190-219 Very high: > or =220 Specimen Anatomical Collection Method Collection Time Receive d Time (Source) Location / / Volume Laterality Blood (Blood, 03/07/2019 9:34 AM 03/07/20 19 9:52 Venous) CDT AM CDT Antelmo Reese M.D. LAB BLOOD ADD-ON Performing Organization Address City/[facility] Phon e Number [facility] - [address] Sodium (03/07/2019 9:34 AM CDT) P athologist Signature Sodium, S 138 135 - 145 03/07/2019 mmol/L 10:34 AM CDT Specimen Anatomical Collection Method Collection Time Receive d Time (Source) Location / / Volume Laterality Blood (Blood, 03/07/2019 9:34 AM 03/07/20 19 9:52 Venous) CDT AM CDT Antelmo Reese M.D. LAB BLOOD ADD-ON Performing Organization Address [facility] Phon e Number [facility] - [address] [place] [address] [facility] Potassium (03/07/2019 9:34 AM CDT) P athologist Signature Potassium, S 4.2 3.6 - 5.2 03/07/2019 mmol/L 10:34 AM CDT Specimen Anatomical Collection Method Collection Time Receive d Time (Source) Location / / Volume Laterality Blood (Blood, 03/07/2019 9:34 AM 03/07/20 19 9:52 Venous) CDT AM CDT Antelmo Reese M.D. LAB BLOOD ADD-ON Performing Organization Address City/State/ZIP Code Phon e Number [facility] - [address] [place] [address] [facility] documented in this encounter Visit Diagnoses Diagnosis Hypertension Personal History Hyperlipidemia Loss Memory Short Term Coronary Artery Disease (Unspecified) documented in this encounter
--- OUTSIDE RECORDS SUMMARY | 2022-06-04 18:11 | XMS_ITS | Encounter Summary ---
:1940 Author Organization [facility] Address [address] [place] [address] Care Team Providers Name Role Phone Unavailable Primary Care Provider Unavailable Encounter Details Date Type Department Care Team Description 03/03/2020 Hospital Encounter Department of Hugh, Pain Hip Bilateral; Laboratory Medicine Wade Peterson Hypertension Personal History; and Pathology, [address] [place] [address] Hyperlipidemia; [facility], in [place], [place] Loss Me carlos Short Term [place], [place] [address] [place] [address] [place], [place] (Work) [phone] Social History Tobacco Use Types Packs/Day Years [...] 05/23/2022 relatives? How often do you attend sikh or presybeterian Never 05/23/2022 services? Do you belong to any clubs or organizations such as No 05/23/2022 sikh groups, unions, fraternal or athletic groups, or [...] 325 mg tablet Take 1 tablet by mouth 0 daily. lanolin/mineral Administer 1 drop into 0 04/06/20 15 oil/petrolatum affected eye(s) as (ARTIFICIAL TEARS OPHT) needed. As needed (both eyes). loratadine (CLARITIN) 10 Take 10 mg by mouth 0 mg tablet daily. POLYETHYLENE GLYCOL 3350 Take 1 g by mouth 0 10/24 ORAL daily. MiraLAX powder documented as of this encounter Plan of Treatment Not on filedocumented as of this encounter Procedures Procedure Name Priority Date/Time Associated Comments Diagnosis MICROSCOPIC AUTOMATED Routine 03/03/2020 7:37 AM Results for this CDT procedure are i n the results section. URINALYSIS WITH Routine 03/03/2020 7:37 AM Pain Hip Bila teral Results for this MICROSCOPIC CDT Hypertension procedure are i n Personal History the results Hyperlipidemia section. Loss Memory Short Term documented in this encounter Results Microscopic Automated (03/03/2020 7:37 AM CDT) P athologist Signature Microscopy Normal 03/03/2020 9:13 ANDREEA AM CDT Specimen Anatomical Collection Method Collection Time Receive d Time (Source) Location / / Volume Laterality Urine 03/03/2020 7:37 AM 0 7:37 CDT AM CDT Antelmo Reese M.D. LAB URINE ORDERABLES Performing Organization Address City/State/ZIP Code Phon e Number [facility] - 200 [place], [place] [address] [facility] [place] [address] [facility] [address] Urinalysis with Microscopic: Urine, Clean Catch (03/03/2020 7:37 AM CDT) [employer] Method Time Signature Source Midstream 03/03/2020 ANDREEA 7:37 AM CDT Appearance Normal Normal 03/03/2020 ANDREEA 8:44 AM CDT Osmolality, U 475 150 - 1150 03/03/2020 ANDREEA mOsm/kg 8:45 AM CDT pH, U 6.2 4.5 - 8.0 03/03/2020 ANDREEA 8:45 AM CDT Comment: ----ADDITIONAL INFORMATION---- This test was developed and its performa nce characteristics determined by [facility] in a manner co nsistent with [...] Laterality Urine (Urine, 03/03/2020 7:37 AM 03/03/20 7:37 Clean Catch) CDT AM CDT Antelmo Reese M.D. LAB URINE ORDERABLES Performing Organization Address City/State/ZIP Code Phon e Number [facility] - [address] [place], [place] [address] [place] [address] [facility] [address] documented in this encounter Visit Diagnoses Diagnosis Pain Hip Bilateral Hypertension Personal History Hyperlipidemia Loss Memory Short Term documented in this encounter Additional Health Concerns Assessment Noted Time PHQ-9 Depression Total Score: 3 03/03/2020 8:00 AM CDT documented as of this encounter
--- OUTSIDE RECORDS SUMMARY | 2022-06-04 18:11 | XMS_ITS | Encounter Summary ---
:1940 Author Organization [facility] Address [address] [place] [address] Care Team Providers Name Role Phone Unavailable Primary Care Provider Unavailable Reason for Visit Reason Onset Date Comments Med Refill 07/07/2019 Encounter Details Date Type Department Care Team Description 07/07/2019 Refill Division of Nephrology and Gali Frazier R.N. Med Refill Hypertension in [address] [address] [place] [address] [place] [address] [phone] Social History Tobacco Use Types Packs/Day Years [...] How often do you attend cheondoism or restorationism Never 05/23/2022 services? Do you belong to [...]
--- OUTSIDE RECORDS SUMMARY | 2022-06-04 18:11 | XMS_ITS | Encounter Summary ---
:1940 Author Organization [facility] Address [address] [place] [address] Care Team Providers Name Role Phone Unavailable Primary Care Provider Unavailable Reason for Visit Reason Comments Hypertension Outpatient (Routine) - Closed Specialty Diagnoses / Procedures Referred By Contact Refer red To Contact Nephrology and Diagnoses Pain Hip Bilateral Hypertension Personal History Hyperlipidemia Loss Memory Short [facility] [address] [place] [address] Referral ID Status Reason Start Date Expiration Date Visits Requ ested Visits Authorized [id number] Closed 01/02/2020 01/01/2021 1 1 Encounter Details Date Type Department Care Team Description 03/03/2020 Office Visit Division of Nephrology Antelmo Reese in Hip Bilateral; and Hypertension in R, M.D. Hypertension Personal History; [place], [place] [address] [facility] Hyperlipidemia; [address] [place], [place] Loss Memory Short Term; [place] [address] [facility] [address] [phone] Social History Tobacco Use Types Packs/Day Years [...] How often do you attend advent or mosque Never 05/23/2022 services? Do you [...] Concentration - - Weight - - Height 181.5 cm (5' 11.46) 03/03/2020 9:37 AM CDT Body Mass Index - - documented in this encounter H&P Notes Antelmo Reese M.D. - 03/03/2020 10:00 AM CDT REFERRAL SOURCE Self REASON FOR VISIT HISTORY OF PRESENT ILLNESS It was a pleasure to see Mr. Merrill , who is a very pleasant 79 y.o. I also visited with his . PAST MEDICAL HISTORY 1. 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 2. Coronary heart disease. He rarely has chest pain. 3. Chronic bilateral buttock pain. X-rays of his pelvis show no significant abnormality. He takes tramadol. 4. Chronic insomnia. Zolpidem works well. 5. Hyperlipidemia 6. Benign prostatic hyperplasia. 7. Left total hip arthroplasty. 8. Hypertension. 9. Peripheral arterial disease. REVIEW OF SYSTEMS Phlegm. He is a former smoker. No acid reflux. Bilateral calf discomfort after walking about 20 minutes. Some short-term memory loss. VITAL SIGNS Ht 181.5 cm BMI 26.83 kg/m?? PHYSICAL EXAMINATION Constitutional Comments: Very pleasant. Healthy. Cardiovascular Rate and Rhythm: Normal rate and regular rhythm. Heart sounds: Normal heart sounds. Pulmonary Breath sounds: Normal breath sounds. No wheezing or rales. Abdominal General: Bowel sounds are normal. There is no distension. Tenderness: There is no abdominal tenderness. Genitourinary Comments: Prostate mildly enlarged. Musculoskeletal Normal range of motion. Lymphadenopathy Cervical: No cervical adenopathy. LAB RESULTS CBC normal. Creatinine stable at 1.6. PSA normal. Blood glucose mildly elevated at 106. Cholesterol very good. Urinalysis normal. IMPRESSION 1. Chronic bilateral buttock pain. He takes tramadol 50 mg mostly 2 a day. Sometimes 1 a day is enough. Sometimes he needs 3 tablets a day. 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 PLAN AND RECOMMENDATIONS For the chronic pain, change the Tramadol prescription to 1 tablet 3 times a day if needed. He is enrolled in the narcotic prescription plan. For the benign prosthetic hyperplasia, continue tamsulosin and finasteride. I reviewed the above with the patient. Antelmo Reese M.D. documented in this encounter Plan of Treatment Not on filedocumented as of this encounter Visit Diagnoses Diagnosis Pain Hip Bilateral Hypertension Personal History Hyperlipidemia Loss Memory Short Term Insomnia documented in this encounter Additional Health Concerns Assessment Noted Time PHQ-9 Depression Total Score: 3 03/03/2020 8:00 AM CDT documented as of this encounter
--- OUTSIDE RECORDS SUMMARY | 2022-06-04 18:11 | XMS_ITS | Encounter Summary ---
:1939 Author Organization [facility] Address [address] [place] [address] Care Team Providers Name Role Phone Unavailable Primary Care Provider Unavailable Reason for Visit Reason Comments Med Refill Encounter Details Date Type Department Care Team Description 09/09/2019 Refill Division of Nephrology and Antelmo White M.D. Med Refill Hypertension in [address] [address] [place] [address] [place], [place] [address] [phone] Social History Tobacco Use Types Packs/Day Years [...] How often do you attend restorationist or roman catholic Never 05/23/2022 services? Do [...]
--- OUTSIDE RECORDS SUMMARY | 2022-06-04 18:11 | XMS_ITS | Encounter Summary ---
:1939 Author Organization [facility] Address [address] [place] [address] Care Team Providers Name Role Phone Unavailable Primary Care Provider Unavailable Reason for Visit Reason Comments Med Refill Encounter Details Date Type Department Care Team Description 03/07/2019 Refill Division of Nephrology and Antelmo White M.D. Med Refill Hypertension in [place] [address] 1 [place] [address] [place] [address] [place], [place] [address] [phone] Social History Tobacco Use Types Packs/Day Years [...] How often do you attend christian or muslim Never 05/23/2022 services? Do you [...] Telephone Encounter - Antelmo Reese M.D. - 03/07/2019 2:43 PM CDT CHIEF COMPLAINT/PURPOSE OF VISIT Tramadol??prescription refill. ?? IMPRESSION/REPORT/PLAN Mr. Familia Merrill??has chronic pain. ?? Drug: ??Tramadol 50 mg. ?? Prescription: ??1 tablet twice a day as needed for pain. Quantity: ??60 Refill date: ??Once every month on the of the month Complications: None ?? I refilled the prescription for March??2019. documented in this encounter Plan of Treatment Not on filedocumented as of this encounter Visit Diagnoses Not on filedocumented in this encounter
--- OUTSIDE RECORDS SUMMARY | 2022-06-04 18:12 | XMS_ITS | Encounter Summary ---
:1939 Author Organization [facility] Address [address] [place] [address] Care Team Providers Name Role Phone Unavailable Primary Care Provider Unavailable Encounter Details Date Type Department Care Team Description 05/27/2018 Hospital Encounter Department of Antelmo Reese [facility] Laboratory Medicine Yaw Clayton Term and Pathology, [address] [place] [address], in [place], [place] [address] [place] [address] [place], [place] (Work) [phone] Social History Tobacco Use Types Packs/Day Years [...] How often do you attend faith or church Never 05/23/2022 services? Do you [...] slept in a skilled nursing (including now)? Sex Assigned at Date Recorded Male 04/08/2018 [...] OPHT) as needed. As needed (both eyes). POLYETHYLENE GLYCOL Take 1 g by mouth 0 7 3350 ORAL daily. MiraLAX powder amLODIPine (NORVASC) 5 Take 1 tablet by 0 017 06/14/2018 mg tablet mouth daily. carvedilol (COREG) 12.5 Take 1 tablet (12.5 200 tablet 3 08/01/2018 mg tablet mg total) by mouth 2 (two) times a day. losartan-hydroCHLOROthi Take 1 tablet by 100 tablet 3 201703/07/2019 azide (HYZAAR) 100-25 mouth every morning. mg per tabletIndications: Hypertension Personal History nitroglycerin Place 1 tablet under 0 02/12/2017 0 03/07/2019 (NITROSTAT) 0.4 mg SL the tongue as tablet needed. Place 1 tab under the tongue at first sign of chest pain. If no relief in 5 min, call 911. Repeat dose every 5 min up to 2 additional doses if chest pain continues. rosuvastatin (CRESTOR) Take 1 tablet (10 mg 100 tablet 3 03/07/2019 10 mg total) by mouth tabletIndications: every evening. Coronary Artery Disease (Unspecified) sertraline (ZOLOFT) 50 Take 1 tablet (50 mg 100 tablet 2 01/31/2019 mg tabletIndications: total) by mouth Hypertension Essential daily. Primary tamsulosin (FLOMAX) 0.4 Take 1 capsule (0.4 100 capsule 3 03/07/2019 mg 24 hr capsule mg total) by mouth daily. traMADol (ULTRAM) 50 mg Take 1 tablet (50 mg 200 tablet 3 10/29/2018 tabletIndications: total) by mouth Chronic Pain/Nonacute every 12 (twelve) Pain hours as needed for pain Indications: Chronic Pain/Nonacute Pain. zolpidem (AMBIEN) 10 mg Take 1 tablet (10 mg 100 tablet 3 12/10/2018 tablet total) by mouth at bedtime as needed for sleep. documented as of this encounter Plan of Treatment Not on filedocumented as of this encounter Procedures Procedure Name Priority Date/Time Associated Diagnosis Comme nts GLUCOSE, FASTING, Routine 05/27/2018 11:31 AM Loss Memory Shor t Results for this S/P VICE PRESIDENT OF NEWS Term procedure are i n the results section. VITAMIN B12 ASSAY, Routine 05/27/2018 11:31 AM Loss Memory [place]ita rt Results for this S VICE PRESIDENT OF NEWS Term procedure are i n the results section. documented in this encounter Results Vitamin B12 Assay (05/27/2018 11:31 AM VICE PRESIDENT OF NEWS) athologist Signature Vitamin B12 306 312 - 011 05/27/2018 [facility] Assay, S ng/L 1:31 PM VICE PRESIDENT OF NEWS [facility] Specimen Anatomical Collection Method Collection Time Receive d Time (Source) Location / / Volume Laterality Blood (Blood, 05/27/2018 11:31 05/27/2018 Venous) AM VICE PRESIDENT OF NEWS 11:54 AM VICE PRESIDENT OF NEWS Antelmo Reese M.D. LAB BLOOD ADD-ON Performing Organization Address City/State/ZIP Code Phon e Number [facility]IES - [address] [place], [place] [address] [facility] (ABNORMAL) Glucose, Fasting (05/27/2018 11:31 AM VICE PRESIDENT OF NEWS) athologist Signature Glucose, P 102 (H) 70 - 100 05/27/2018 [facility] mg/dL 12:30 PM VICE PRESIDENT OF NEWS [facility] Last Intake 18 hr 05/27/2018 [facility] 11:54 AM VICE PRESIDENT OF NEWS [facility]ATORIES - [facility] Specimen Anatomical Collection Method Collection Time Receive d Time (Source) Location / / Volume Laterality Blood (Blood, 05/27/2018 11:31 05/27/2018 Venous) AM VICE PRESIDENT OF NEWS 11:54 AM VICE PRESIDENT OF NEWS Antelmo Reese M.D. LAB BLOOD NON ADD-ON Performing Organization Address City/State/ZIP Code Phon e Number [facility] - [address] [place] [address] [facility] documented in this encounter Visit Diagnoses Diagnosis Loss Memory Short Term documented in this encounter
--- OUTSIDE RECORDS SUMMARY | 2022-06-04 18:12 | XMS_ITS | Encounter Summary ---
:1940 Author Organization [facility] Address [address] [place] [address] Care Team Providers Name Role Phone Unavailable Primary Care Provider Unavailable Encounter Details Date Type Department Care Team Description 08/08/2018 Ancillary Procedure Department of Ophthalmology Social History Tobacco Use Types Packs/Day Years [...] How often do you attend anabaptism or religion Never 05/23/2022 services? Do you [...] or slept in a custodial (including now)? Sex Assigned at Date Recorded Male 04/08/2018 12:55 PM CDT documented as of this encounter Plan of Treatment Not on filedocumented as of this encounter Procedures Procedure Name Priority Date/Time Associated Comments Diagnosis OPHTHALMOLOGY IMAGE Routine 08/08/2018 10:30 Resu lts for this EXAM AM CARBIDE TOOL MAKER procedure are i n the results section. documented in this encounter Results Eyes Cirrus OCT NFL GCL-Ophthalmology Image Exam (08/08/2018 10:30 AM CARBIDE TOOL MAKER) Specimen (Source) Anatomical Collection Method Collection Time Re ceived Time Location / / Volume Laterality 08/08/2018 12:00 PM CARBIDE TOOL MAKER Narrative [facility] - 08/08/2018 10:30 AM CARBIDE TOOL MAKER This order has been created and auto-finalized [...]
--- OUTSIDE RECORDS SUMMARY | 2022-06-04 18:12 | XMS_ITS | Encounter Summary ---
:1940 Author Organization [facility] Address [address] [place] [address] Care Team Providers Name Role Phone Unavailable Primary Care Provider Unavailable Encounter Details Date Type Department Care Team Description 04/18/2018 Orders Only Division of Nephrology and Ghulam Reese, Hypertension in [facility] [address] [facility] [address] [place] [phone] (Wo rk) Social History Tobacco Use Types [...] 05/23/2022 relatives? How often do you attend alevism or samaritan Never 05/23/2022 services? Do you belong to any clubs or organizations such as No 05/23/2022 alevism groups, unions, fraternal or athletic groups, or [...] slept in a group home (including now)? Sex Assigned at Date Recorded Male 04/08/2018 12:55 PM CDT documented as of this encounter Plan of Treatment Not on filedocumented as of this encounter Visit Diagnoses Not on filedocumented in this encounter
--- OUTSIDE RECORDS SUMMARY | 2022-06-04 18:12 | XMS_ITS | Encounter Summary ---
:1940 Author Organization [facility] Address [address] [place] [address] Care Team Providers Name Role Phone Unavailable Primary Care Provider Unavailable Reason for Referral Outpatient (Routine) - Closed Specialty Diagnoses / Procedures Referred By Contact Refer red To Contact Diagnoses Nevus Atypical Oziel Castillo M.D. [facility] Procedures JADE Excision 1-2 sites 200 [place] [address] Referral ID Status Reason Start Date Expiration Date Visits Requ ested Visits Authorized [id number] Closed 04/25/2018 04/25/2019 1 1 Encounter Details Date Type Department Care Team Description 04/25/2018 Clinical Communication Department of Oziel Castillo Dermatology shamir Santos M.D. [place], [place] [address] [place] [phone] Social History Tobacco Use Types Packs/Day Years [...] How often do you attend cheondoism or jain Never 05/23/2022 services? Do you [...] slept in a senior care (including now)? Sex Assigned at Date Recorded Male 04/08/2018 12:55 PM CDT documented as of this encounter Miscellaneous Notes Telephone Encounter - Oziel Castillo M.D. - 04/25/2018 2:12 PM CDT DERMATOLOGY MISCELLANEOUS NOTE CHIEF COMPLAINT: Biopsy results I called the patient to discuss his most recent biopsy results. 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 I discussed our recommendation for further excision of the area. We discussed the diagnosis and the basics of the procedure. An order was placed and the patient will call our appointment office to schedule the procedure at his convenience. All questions were answered. #1 Biopsy-proven compound nevus with severe atypia, right upper abdomen Plan for treatment with excision at [facility]. documented in this encounter Plan of Treatment Scheduled Orders Name Type Priority Associated Diagnoses Order S chedule JADE Excision 1-2 sites Dermatology Routine Nevus Atypical Exp ected: 04/25/2018 (Approximate), Expires: 2020 documented as of this encounter Visit Diagnoses Diagnosis Nevus Atypical - Primary documented in this encounter
--- OUTSIDE RECORDS SUMMARY | 2022-06-04 18:12 | XMS_ITS | Encounter Summary ---
:1940 Author Organization [facility] Address [address] [place] [address] Care Team Providers Name Role Phone Unavailable [...] 05/23/2022 relatives? How often do you attend taoist or gnosticism Never 05/23/2022 services? Do you belong to any clubs or organizations such as No 05/23/2022 taoist groups, unions, fraternal or athletic groups, or [...] or slept in a halfway (including now)? Sex Assigned at Date Recorded Male 04/08/2018 12:55 PM CDT documented as of this encounter Plan of Treatment Not on filedocumented as of this encounter Procedures Procedure Name Priority Date/Time Associated Comments Diagnosis OPHTHALMOLOGY IMAGE Routine 08/08/2018 10:37 Resu lts for this EXAM AM MONEY ROOM TELLER procedure are i n the results section. documented in this encounter Results Eyes Color-Ophthalmology Image Exam (08/08/2018 10:37 AM MONEY ROOM TELLER) Specimen (Source) Anatomical Collection Method Collection Time Re ceived Time Location / / Volume Laterality 08/08/2018 12:00 PM MONEY ROOM TELLER Narrative [facility] - 08/08/2018 10:37 AM MONEY ROOM TELLER This order has been created and auto-finalized [...]
--- OUTSIDE RECORDS SUMMARY | 2022-06-04 18:12 | XMS_ITS | Encounter Summary ---
:1940 Author Organization [facility] Address [address] [place] [address] Care Team Providers Name Role Phone Unavailable Primary Care Provider Unavailable Reason for Visit Reason Onset Date Comments Prescription Mailed to Home 12/12/2018 Encounter Details Date Type Department Care Team Description 12/12/2018 Clinical Division of Sona Reese Ma Communication Nephrology and Antelmo Clayton M.D. to Home Hypertension in [address] [place] [address] [place] [phone] [place], [place] [phone] (Work) [phone] Social History Tobacco Use Types Packs/Day Years [...] How often do you attend congregational or mormonism Never 05/23/2022 services? Do you [...] place to sleep or slept in a residential (including now)? Sex Assigned at Date Recorded Male 04/08/2018 12:55 PM CDT documented as of this encounter Miscellaneous Notes Telephone Encounter - Josue Purvis - 12/12/2018 8:29 AM CDT Prescription for zolpidem (Ambien) 10 mg mailed to patient. documented in this encounter Plan of Treatment Not on filedocumented as of this encounter Visit Diagnoses Not on filedocumented in this encounter
--- OUTSIDE RECORDS SUMMARY | 2022-06-04 18:12 | XMS_ITS | Encounter Summary ---
:1940 Author Organization [facility] Address [address] [place] [address] Care Team Providers Name Role Phone Unavailable Primary Care Provider Unavailable Reason for Visit Reason Comments Med Refill Encounter Details Date Type Department Care Team Description 01/31/2019 Refill Division of Nephrology and Antelmo White M.D. Med Refill Hypertension in [place] [address] [address] [place] [address] [place] [address] [place], [place] [address] [phone] Social History Tobacco Use Types Packs/Day Years [...] How often do you attend amish or confucianist Never 05/23/2022 services? Do you [...] of this encounter Visit Diagnoses Diagnosis Hypertension Essential Primary documented in this encounter
--- OUTSIDE RECORDS SUMMARY | 2022-06-04 18:12 | XMS_ITS | Encounter Summary ---
:1940 Author Organization [facility] Address [address] [place] [address] Care Team Providers Name Role Phone Unavailable Primary Care Provider Unavailable Reason for Visit Reason Comments Med Refill Encounter Details Date Type Department Care Team Description 01/23/2019 Refill Division of Nephrology and Antelmo White M.D. Med Refill Hypertension in [place] [address] [address] [place] [address] [place] [address] [place], [place] [address] [phone] Social History Tobacco Use Types Packs/Day Years [...] How often do you attend holiness or scientology Never 05/23/2022 services? Do you [...] or slept in a long-term (including now)? Sex Assigned at Date Recorded Male 04/08/2018 12:55 PM CDT documented as of this encounter Miscellaneous Notes Telephone Encounter - Antelmo Reese M.D. - 01/23/2019 4:53 PM CDT CHIEF COMPLAINT/PURPOSE OF VISIT Tramadol prescription refill. ?? IMPRESSION/REPORT/PLAN Mr. Familia Merrill has chronic pain. ?? Drug: ??Tramadol 50 mg. ?? Prescription: ??1 tablet twice a day as needed for pain. Quantity: ??60 Refill date: ??Once every month on the of the month Complications: None ?? I refilled the prescription for January??2019. documented in this encounter Plan of Treatment Not on filedocumented as of this encounter Visit Diagnoses Not on filedocumented in this encounter
--- OUTSIDE RECORDS SUMMARY | 2022-06-04 18:12 | XMS_ITS | Encounter Summary ---
:1940 Author Organization [facility] Address [address] [place] [address] Care Team Providers Name Role Phone Unavailable Primary Care Provider Unavailable Reason for Visit Reason Onset Date Comments RX mailed to the patient 10/30/2018 Encounter Details Date Type Department Care Team Description 10/30/2018 Clinical Communication Division of JI Reese ma to the Nephrology and Antelmo Clayton M.D. patient Hypertension in [address] [place] [address] [place] [address] [place], [place] [phone] (Work) [phone] Social History Tobacco Use Types Packs/Day Years [...] 05/23/2022 relatives? How often do you attend confucianism or uatsdin Never 05/23/2022 services? Do you belong to any clubs or organizations such as No 05/23/2022 confucianism groups, unions, fraternal or athletic groups, or [...] or slept in a alf (including now)? Sex Assigned at Date Recorded Male 04/08/2018 12:55 PM CDT documented as of this encounter Miscellaneous Notes Telephone Encounter - Josue Purvis - 10/30/2018 10:51 AM CDT Prescription for Tramadol 50 mg mailed to patient. documented in this encounter Plan of Treatment Not on filedocumented as of this encounter Visit Diagnoses Not on filedocumented in this encounter
--- OUTSIDE RECORDS SUMMARY | 2022-06-04 18:12 | XMS_ITS | Encounter Summary ---
:1940 Author Organization [facility] Address [address] [place] [address] Care Team Providers Name Role Phone Unavailable [...] How often do you attend bahai or congregation Never 05/23/2022 services? Do you belong to [...] or slept in a correction (including now)? Sex Assigned at Date Recorded Male 04/08/2018 12:55 PM CDT documented as of this encounter Plan of Treatment Not on filedocumented as of this encounter Procedures Procedure Name Priority Date/Time Associated Comments Diagnosis OPHTHALMOLOGY IMAGE Routine 08/08/2018 12:10 Resu lts for this EXAM PM WEAVING INSPECTOR procedure are i n the results section. documented in this encounter Results Eyes Visual Field [id number] Image Exam (08/08/2018 12:10 PM WEAVING INSPECTOR) Specimen (Source) Anatomical Collection Method Collection Time Re ceived Time Location / / Volume Laterality 08/08/2018 12:00 PM WEAVING INSPECTOR Narrative [facility] - 08/08/2018 1:14 PM WEAVING INSPECTOR This order has been created and auto-finalized [...]
--- OUTSIDE RECORDS SUMMARY | 2022-06-04 18:12 | XMS_ITS | Encounter Summary ---
:1939 Author Organization [facility] Address [address] [place] [address] Care Team Providers Name Role Phone Unavailable Primary Care Provider Unavailable Reason for Visit Reason Comments Med Refill Encounter Details Date Type Department Care Team Description 10/29/2018 Refill Division of Nephrology and Antelmo White M.D. Med Refill Hypertension in [place] [address] [address] [place] [address] [place] [address] [place], [place] [address] [phone] Social History Tobacco Use Types Packs/Day Years [...] How often do you attend orthodox or judaism Never 05/23/2022 services? Do you [...] or slept in a half-way (including now)? Sex Assigned at Date Recorded Male 04/08/2018 12:55 PM CDT documented as of this encounter Plan of Treatment Not on filedocumented as of this encounter Visit Diagnoses Not on filedocumented in this encounter
--- OUTSIDE RECORDS SUMMARY | 2022-06-04 18:12 | XMS_ITS | Encounter Summary ---
:1940 Author Organization [facility] Address [address] [place] [address] Care Team Providers Name Role Phone Unavailable Primary Care Provider Unavailable Encounter Details Date Type Department Care Team Description 02/07/2019 Orders Only Division of Nephrology and Ghulam Reese, Hypertension in [facility] [address] [facility] [address] [place] [phone] [phone] (Wo rk) Social History Tobacco Use Types [...] How often do you attend quaker or alevism Never 05/23/2022 services? Do you [...] or slept in a mcc (including now)? Sex Assigned at Date Recorded Male 04/08/2018 12:55 PM CDT documented as of this encounter Plan of Treatment Not on filedocumented as of this encounter Visit Diagnoses Not on filedocumented in this encounter
--- OUTSIDE RECORDS SUMMARY | 2022-06-04 18:12 | XMS_ITS | Encounter Summary ---
:1940 Author Organization [facility] Address [address] [place] [address] Care Team Providers Name Role Phone Unavailable Primary Care Provider Unavailable Reason for Visit Outpatient (Routine) - Closed Specialty Diagnoses / Procedures Referred By Contact Refer red To Contact Ophthalmology Diagnoses Glaucoma Indeterminate Stage Siva Ma M.D. [place] [address] [place] [address] Referral ID Status Reason Start Date Expiration Date Visits V isits Requested Authorized [id number] Closed Specialty 06/11/2018 06/11/2019 1 1 Services Required Encounter Details Date Type Department Care Team Description 08/08/2018 Comprehensive Visit Department of Softing Glaucom a Suspect Ophthalmology in [facility] Ocular Hy pertension [place], [place] L, O.D. Bilateral (Primary [address] [facility] [address] [place]) [place] [phone] Social History Tobacco Use Types Packs/Day Years [...] 05/23/2022 relatives? How often do you attend confucianist or jew Never 05/23/2022 services? Do you belong to any clubs or organizations such as No 05/23/2022 confucianist groups, unions, fraternal or athletic groups, or [...] or slept in a fci (including now)? Sex Assigned at Date Recorded Male 04/08/2018 12:55 PM CDT documented as of this encounter Progress Notes Matilda Arana O.D. - 08/08/2018 9:45 AM CST Images from the original note were not included. Familia Manzanares General CHIEF COMPLAINT Rule out glaucoma, no other vision concerns. 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 08/22/2018 Addendum: Mehrdad Jacobs M.D., Ph.D. Matilda Arana O.Arminda. ?? Matilda, I think this is all from the prior strokes. ??His butler are fairly stable compared to 2007. 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 ??I don't think he has glaucoma. Thanks, Mehrdad Garrett I left message with patient - RTC 1 year or prn. SECURITY PROJECT MANAGER documented in this encounter Plan of Treatment Not on filedocumented as of this encounter Results Automated VF - Extended - OU - Both Eyes (08/08/2018 12:54 PM IT SECURITY PROJECT MANAGER) Specimen (Source) Anatomical Location Collection Method / Collectio n Time Received Time / Laterality Volume Narrative OPHTHALMOLGY NON-IMAGING ORDERS - 11:24 AM IT SECURITY PROJECT MANAGER Right Eye Automated visual field device used was Z eiss. Strategy was HARMONY. Threshold was 24-2. Left Eye Automated visual field device used was Z eiss. Strategy was HARMONY. Threshold was 24-2. Notes 08/11 visual field RE: 08/11 fix loss, 3% false pos and 9% false neg; LE - 2% false positive Both eyes central field loss on right si de , LE ring like defects RE - diffuse field loss , but superior nasal loss which does cross horizontal lines Matilda Guo O.D. OPHTH VISUAL FIELD Performing Organization Address City/[facility]/ZIP Code Phon e Number OPHTHALMOLGY NON-IMAGING ORDERS Fundus Photos - OU - Both Eyes (08/08/2018 10:34 AM IT SECURITY PROJECT MANAGER) Specimen (Source) Anatomical Location Collection Method / Collectio n Time Received Time / Laterality Volume Narrative OPHTHALMOLGY NON-IMAGING ORDERS - 11:34 AM IT SECURITY PROJECT MANAGER This result has an attachment that is no t available. 07/2018 good quality photos bilaterally Matilda Guo O.D. OPHTH PHOTOGRAPHY Performing Organization Address City/State/ZIP Code Phon e Number OPHTHALMOLGY NON-IMAGING ORDERS Optical Coherence Tomography (OCT) - Optic Nerve - OU - Both Eyes (08/08/2018 10:34 AM IT SECURITY PROJECT MANAGER) Specimen (Source) Anatomical Location Collection Method / Collectio n Time Received Time / Laterality Volume Narrative OPHTHALMOLGY NON-IMAGING ORDERS - 11:28 AM IT SECURITY PROJECT MANAGER OCT device used is Cirrus . Notes 08/08/2018 Cirrus OCT 02/01 and 02/01 RE 80 and LE 55 loss Sup>Inf & temporal; average ganglion cell layer lo ss 66 & 60 - thinning on right side Matilda Guo O.D. 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
--- OUTSIDE RECORDS SUMMARY | 2022-06-04 18:12 | XMS_ITS | Encounter Summary ---
:1940 Author Organization [facility] Address [address] [place] [address] Care Team Providers Name Role Phone Unavailable Primary Care Provider Unavailable Reason for Referral Outpatient (Routine) - Closed Specialty Diagnoses / Procedures Referred By Contact Refer red To Contact Dermatology Diagnoses Aftercare Suture Removal Non-Injury Alex Tolliver M.D. [address] [phone] Referral ID Status Reason Start Date Expiration Date Visits Requ ested Visits Authorized [id number] Closed 06/27/2018 06/27/2019 1 1 Scheduling Instructions Suture removal ING CRANE OPERATOR Reason for Visit Outpatient (Routine) - Closed Specialty Diagnoses / Procedures Referred By Contact Refer red To Contact Diagnoses Nevus Atypical Oziel Castillo M.D. [facility] Procedures JADE Excision 1-2 sites 200 [place] [address] Referral ID Status Reason Start Date Expiration Date Visits Requ ested Visits Authorized [id number] Closed 04/25/2018 04/25/2019 1 1 Encounter Details Date Type Department Care Team Description 06/27/2018 Procedure visit Department of Alex Tolliver (Primary Dx); Dermatology shamir Lacy M.D. Aftercare Suture Removal Non-Injury [place], [place] [address] [place] [address] [place] [phone] Social History Tobacco Use Types Packs/Day Years [...] How often do you attend tenriism or christianity Never 05/23/2022 services? Do you [...] Sign Reading Time Taken Comments Blood Pressure 132/73 06/27/2018 1:33 PM POURING CRANE OPERATOR Pulse 71 06/27/2018 1:33 PM POURING CRANE OPERATOR Temperature - - Respiratory Rate - - Oxygen Saturation - - Inhaled Oxygen Concentration - - Weight - - Height - - Body Mass Index - - documented in this encounter Procedure Notes Yg John M.D., M.S. - 06/27/2018 2:00 PM CST PREOP INDICATION: REMOVAL. Date of Surgery: 06/27/2018 Surgeon: Dr. Tolliver Peer Health Promoter: Dr. gY John M.D., M.S. Location: [facility]:GO Floor:16 Room:[facility] Visit Type: Outpatient PostOp Diagnosis: Compound nevus with severe atypia Anatomic Location: Right upper abdomen Preoperative size: 0.6 x 0.4 cm with circumferential margins of 5 mm for a total excision diameter of 1.6 x 1.4 cm. Procedure: Excision with intermediate layered closure Prior to the procedure, final verification of the patient identity and correct marked surgical site was performed. Procedural pause conducted to verify: correct patient identity, procedure to be performed and as applicable, correct side and site, correct patient position, and availability of implants, special equipment or special requirements. INFORMED CONSENT Discussed the risks, benefits, alternatives, and the necessity of other members of the healthcare team participating in the procedure. All questions answered and consent given. PATIENT EDUCATION Ready to learn, no apparent learning barriers were identified; learning preferences include listening. Explained diagnosis and treatment plan; patient expressed understanding of the content. Preoperative medications: None Anesthesia used was 1% lidocaine with 1:200,000 epinephrine. The skin was prepped in a sterile fashion with Hibiclens. The lesion was excised with 5-mm clinically tumor-free margins in a fusiform fashion through the skin and through the subcutaneous tissue. The wound edges were undermined as needed, and hemostasis was obtained with electrocoagulation. Due to wound size, the wound edges were closed in an intermediate layered fashion with 4-0 Vicryl subcutaneous sutures and 5-0 nylon skin sutures. Postoperative length: 4.8 cm. Estimated blood loss: Minimal. Complications: None. Wound care: Routine. Specimen sent to Dermatopathology. Biopsy report is p ending. Postoperative medications: None ING CRANE OPERATOR Associated attestation - Alex Tolliver M.D. - 06/27/2018 2:49 PM POURING CRANE OPERATOR Having reviewed the history, examined the patient, as well as discussed management, I agree with theimpression and plan as documented by Yg John MD ([phone]) who assisted me. In addition, I was also present for the critical portion and immediately available for the entire procedure we performed. documented in this encounter Consult Notes Yg John M.D., M.S. - 06/27/2018 2:00 PM CST Referral Oziel Castillo M.D. Chief Complaint Compound nevus with severe atypia, right upper abdomen HISTORY OF PRESENT ILLNESS is a very pleasant 77 y.o. 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 He was most recently seen in clinic by Dr. Castillo on April 12, which time the above biopsy was obtained. He has no prior history of skin cancer. He has no other cutaneous concerns today. The dermatologic surgery preoperative information sheet was reviewed. He has a history of multiple cerebral infarcts since 2000, with residual right leg sensory loss. He does not have a pacemaker or defibrillator. 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 He is currently taking the following antithrombotic medications: Aspirin. Denies tobacco use and does not drink alcohol. PHYSICAL EXAM Vitals: BP 132/73, HR 71 General: No acute distress. Pleasant and cooperative. Alert and oriented. Skin: Examination limited to the abdomen per patient request. He has a well- healed shave biopsy siteon the right upper abdomen without gross, clinical evidence of residual nevus. He has multiple seborrheic keratoses and benign- appearing nevi scattered throughout the abdomen. IMPRESSION/REPORT/PLAN #1 Compound nevus with severe atypia, right upper abdomen Recommended wide local excision for definitive treatment. Risks, benefits, and alternatives were discussed. Patient elected to proceed. Briefly, 5 mm margins were utilized. A fusiform excision was performed and the specimen sent to Dermatopathology. The resulting defect was closed in an intermediate layered fashion, with a postoperative length of 4.8 cm. Patient tolerated the procedure well. Please the operative note for additional details. The results of today's excision will go to Dr. Castillo, who will be in touch with the results and any additional recommendations. All questions answered. PROCEDURAL PAUSE Procedural pause conducted to verify: correct patient identity, procedure to be performed, and as applicable, correct side and site, correct patient position, and availability of implants, special equipment, or special requirements. PATIENT EDUCATION Ready to learn. No apparent learning barriers were identified. Learning preferences include listening. Explained diagnosis and treatment plan; patient/guardian of patient expressed understanding of thecontent. INFORMED CONSENT Discussed the risks, benefits, alternatives, and the necessity of other members of the healthcare team participating in the procedure. All questions answered and consent given. ING CRANE OPERATOR Associated attestation - Alex Tolliver M.D. - 06/27/2018 2:49 PM POURING CRANE OPERATOR Having reviewed the history, examined the patient, as well as discussed management, I agree with theimpression and plan as documented by Yg John MD ([phone]) who assisted me. In addition, I was also present for the critical portion and immediately available for the entire procedure we performed. documented in this encounter Plan of Treatment Scheduled Referrals Name Type Priority Associated Order Schedule Diagnoses Dermatology nurse Outpatient Referral Routine Aftercare Suture Expected: visit (clinic) Removal Non-Injury 019 (Approximate), Expires: 06/27/2021 documented as of this encounter Procedures Procedure Name Priority Date/Time Associated Diagnosis Comme nts DERMATOPATHOLOGY Routine 06/27/2018 1:47 PM Nevus Atypical Res ults for this POURING CRANE OPERATOR procedure are i n the results section. documented in this encounter Results Dermatopathology (06/27/2018 1:47 PM POURING CRANE OPERATOR) Component Value Ref Test Analysis Performed At [facility] Range Method Time Signature Gross Description Received in formalin, labeled with the patient's name, MRN, 07/01/2018 [facility] and right upper abdomen is a montano, unoriented skin ellips e 5:41 PM POURING CRANE OPERATOR LABORATORIES - measuring 3.4 x 1.1 cm and excised to a depth of 0.6 cm. [facility] Centrally located on the skin surface is a 0.8 x 0.2 cm CAMPUS montano, well-healed scar located 0.5 cm from the closest non apical margin. The specimen is inked black and serially sectioned; entirely submitted as follows: A1- Tips A2-A3- scar Grossed by [email or web address]. Participated in Morena Arias 07/01/2018 [facility] preston Joshi, 5:41 PM POURING CRANE OPERATOR LABORATORIES - Interpretation Yaw-Patholog [facility]bride Resident CAMPUS Report Shauna Farias 07/01/2018 [facility] electronically Yaw Lyle 5:41 PM POURING CRANE OPERATOR LABORATORI ES - signed by [facility] 07/01/2018 [facility] 5:41 PM POURING CRANE OPERATOR LABORATORIES - [facility] Interpretation FINAL DIAGNOSIS 07/01/2018 [facility] ??Right upper abdomen, Skin excision: ??Re-excision of 5:41 PM POURING CRANE OPERATOR LABORATORIES - severely atypical nevus ([id number], 04/12/2018), no [facility] residual nevus identified CAMP US Specimen (Source) Anatomical Collection Method Collection Time Re ceived Time Location / / Volume Laterality Skin (Right upper 06/27/2018 1:47 PM abdomen) POURING CRANE OPERATOR Narrative This result has an attachment that is no t available. Oziel Castillo M.D. LAB PATH DERM ORDERABLES Performing Organization Address City/State/ZIP Code Phon e Number [facility]ORATORIES - [address] documented in this encounter Visit Diagnoses Diagnosis Nevus Atypical - Primary Aftercare Suture Removal Non-Injury documented in this encounter Administered Medications Active Administered Medications - up to 3 most recent administrations Medication Order MAR Action Action Date Dose Rate Site lidocaine-EPINEPHrine 1%-1:200,000 Given 06/27/2018 1:50 PM POURING CRANE OPERATOR 6 mL injection 2-50 mL (XYLOCAINE W/EPI) 2-50 mL, injection, As needed, may repeat if the patient complains of pain/discomfort at the site up to 50 mL for entire procedure, Starting on Taniya 06/27/18 at 1350 documented in this encounter
--- OUTSIDE RECORDS SUMMARY | 2022-06-04 18:12 | XMS_ITS | Encounter Summary ---
:1940 Author Organization [facility] Address [address] [place] [address] Care Team Providers Name Role Phone Unavailable Primary Care Provider Unavailable Reason for Visit Reason Comments Med Refill Encounter Details Date Type Department Care Team Description 01/23/2019 Refill Division of Nephrology and Antelmo White M.D. Med Refill Hypertension in [place] [address] 1 [place] [address] [place] [address] [place], [place] [address] [phone] Social History Tobacco Use Types Packs/Day Years [...] 05/23/2022 relatives? How often do you attend yazdanism or taoist Never 05/23/2022 services? Do you belong to any clubs or organizations such as No 05/23/2022 yazdanism groups, unions, fraternal or athletic groups, or [...] or slept in a retirement (including now)? Sex Assigned at Date Recorded Male 04/08/2018 12:55 PM CDT documented as of this encounter Plan of Treatment Not on filedocumented as of this encounter Visit Diagnoses Not on filedocumented in this encounter
--- OUTSIDE RECORDS SUMMARY | 2022-06-04 18:12 | XMS_ITS | Encounter Summary ---
:1940 Author Organization [facility] Address [address] [place] [address] Care Team Providers Name Role Phone Unavailable Primary Care Provider Unavailable Encounter Details Date Type Department Care Team Description 04/16/2018 Clinical Communication Division of Nephrology Antelmo Reese and Hypertension in Y[place], [place] [address] [facility] [address] [place] [address] [phone] Social History Tobacco Use Types Packs/Day Years [...] 05/23/2022 relatives? How often do you attend rastafari or uatsdin Never 05/23/2022 services? Do you belong to any clubs or organizations such as No 05/23/2022 rastafari groups, unions, fraternal or athletic groups, or [...] slept in a long term (including now)? Sex Assigned at Date Recorded Male 04/08/2018 12:55 PM CDT documented as of this encounter Plan of Treatment Not on filedocumented as of this encounter Visit Diagnoses Not on filedocumented in this encounter
--- OUTSIDE RECORDS SUMMARY | 2022-06-04 18:12 | XMS_ITS | Encounter Summary ---
:1940 Author Organization [facility] Address [address] [place] [address] Care Team Providers Name Role Phone Unavailable Primary Care Provider Unavailable Encounter Details Date Type Department Care Team Description 08/08/2018 Ancillary Department of [place]ing [place], Glaucoma Hall spect Procedure Ophthalmology in Matilda Moses O.D. Ocular Hypertension [place], [place] [address] [facility] Bilateral [address] [place] [address] [phone] Social History Tobacco Use Types Packs/Day Years [...] 05/23/2022 relatives? How often do you attend yarsanism or alevism Never 05/23/2022 services? Do you belong to any clubs or organizations such as No 05/23/2022 yarsanism groups, unions, fraternal or athletic groups, or [...] Name Priority Date/Time Associated Diagnosis Comme nts AUTOMATED VF - Routine 08/08/2018 12:54 Glaucoma Suspect Resul ts for this EXTENDED - OU - PM INTENSIVE CARE UNIT REGISTERED NURSE Ocular Hypertension proce dure are in BOTH EYES Bilateral the results section. documented in this encounter Results Automated VF - Extended - OU - Both Eyes (08/08/2018 12:54 PM INTENSIVE CARE UNIT REGISTERED NURSE) Specimen (Source) Anatomical Location Collection Method / Collectio n Time Received Time / Laterality Volume Narrative OPHTHALMOLGY NON-IMAGING ORDERS - 11:24 AM INTENSIVE CARE UNIT REGISTERED NURSE Right Eye Automated visual field device used [...] O.D. OPHTH VISUAL FIELD Performing Organization Address City/State/ZIP Code Phon e Number OPHTHALMOLGY NON-IMAGING ORDERS documented in this encounter Visit Diagnoses Diagnosis Glaucoma Suspect Ocular Hypertension Delio ateral documented in this encounter
--- OUTSIDE RECORDS SUMMARY | 2022-06-04 18:12 | XMS_ITS | Encounter Summary ---
:1940 Author Organization [facility] Address [address] [place] [address] Care Team Providers Name Role Phone Unavailable Primary Care Provider Unavailable Reason for Visit Reason Comments Med Refill Encounter Details Date Type Department Care Team Description 12/10/2018 Refill Division of Nephrology and Antelmo White M.D. Med Refill Hypertension in [place] [address] 1 [place] [address] [place] [address] [place], [place] [address] [phone] Social History Tobacco Use Types Packs/Day Years [...] How often do you attend samaritan or hinduism Never 05/23/2022 services? Do you belong to [...] or slept in a usp (including now)? Sex Assigned at Date Recorded Male 04/08/2018 12:55 PM CDT documented as of this encounter Plan of Treatment Not on filedocumented as of this encounter Visit Diagnoses Not on filedocumented in this encounter
--- OUTSIDE RECORDS SUMMARY | 2022-06-04 18:12 | XMS_ITS | Encounter Summary ---
:1940 Author Organization [facility] Address [address] [place] [address] Care Team Providers Name Role Phone Unavailable Primary Care Provider Unavailable Reason for Visit Reason Onset Date Comments RX sent by mail 01/24/2019 Encounter Details Date Type Department Care Team Description 01/24/2019 Clinical Communication Division of JI Reese se by mail Nephrology and Antelmo Clayton M.D. Hypertension in [address] [place] [address] [place] [address] [place], [place] [phone] (Work) [phone] Social History Tobacco Use Types Packs/Day Years [...] How often do you attend yarsanism or yarsani Never 05/23/2022 services? Do you [...] or slept in a [facility] (including now)? Sex Assigned at Date Recorded Male 04/08/2018 12:55 PM CDT documented as of this encounter Miscellaneous Notes Telephone Encounter - Josue Purvis - 01/24/2019 7:39 AM CDT Prescription for Tramadol (Ultram) 50 mg tablets mailed to patient. documented in this encounter Plan of Treatment Not on filedocumented as of this encounter Visit Diagnoses Not on filedocumented in this encounter
--- OUTSIDE RECORDS SUMMARY | 2022-06-04 18:12 | XMS_ITS | Encounter Summary ---
:1939 Author Organization [facility] Address [address] [place] [address] Care Team Providers Name Role Phone Unavailable Primary Care Provider Unavailable Reason for Visit Reason Comments Med Refill Encounter Details Date Type Department Care Team Description 08/01/2018 Refill Division of Nephrology and Antelmo White M.D. Med Refill Hypertension in [place] [address] 1 [place] [address] [place] [address] [place], [place] [address] [phone] Social History Tobacco Use Types Packs/Day Years [...] How often do you attend yarsani or congregation Never 05/23/2022 services? Do you [...] [facility] [place] [facility] (including now)? Sex Assigned at Date Recorded Male 04/08/2018 12:55 PM CDT documented as of this encounter Miscellaneous Notes Telephone Encounter - Gali Frazier, R.N. - 08/05/2018 2:00 PM CST Prescription for carvedilol refilled per protocol [id number] [facility] [employer] [employer] documented in this encounter Plan of Treatment Not on filedocumented as of this encounter Visit Diagnoses Not on filedocumented in this encounter
--- OUTSIDE RECORDS SUMMARY | 2022-06-04 18:12 | XMS_ITS | Encounter Summary ---
:1939 Author Organization [facility] Address [address] [place] [address] Care Team Providers Name Role Phone Unavailable Primary Care Provider Unavailable Reason for Visit Reason Comments Med Refill Encounter Details Date Type Department Care Team Description 02/07/2019 Refill Division of Nephrology and Antelmo White M.D. Med Refill Hypertension in [place] [address] 1 [place] [address] [place] [address] [place], [place] [address] [phone] Social History Tobacco Use Types Packs/Day Years [...] How often do you attend muslim or synagogue Never 05/23/2022 services? Do you belong to [...] Telephone Encounter - Antelmo Reese M.D. - 02/07/2019 11:58 AM CDT CHIEF COMPLAINT/PURPOSE OF VISIT Tramadol prescription refill. ?? IMPRESSION/REPORT/PLAN Mr. Familia Merrill has chronic pain. ?? Drug: ??Tramadol 50 mg. ?? Prescription: ??1 tablet twice a day as needed for pain. Quantity: ??60 Refill date: ??Once every month on the of the month Complications: None ?? I refilled the prescription for February??2019. documented in this encounter Plan of Treatment Not on filedocumented as of this encounter Visit Diagnoses Not on filedocumented in this encounter
--- OUTSIDE RECORDS SUMMARY | 2022-06-04 18:12 | XMS_ITS | Encounter Summary ---
:1939 Author Organization [facility] Address [address] [place] [address] Care Team Providers Name Role Phone Unavailable Primary Care Provider Unavailable Encounter Details Date Type Department Care Team Description 08/08/2018 Ancillary Department of Softing [place], Glaucoma Hall spect Procedure Ophthalmology in Matilda Moses O.D. Ocular Hypertension [place], [place] [address] [facility] Bilateral [address] [place] [address] [phone] Social History Tobacco Use Types Packs/Day Years [...] How often do you attend restorationist or cheondoism Never 05/23/2022 services? Do you belong to [...] Name Priority Date/Time Associated Diagnosis Comme nts FUNDUS PHOTOS - OU Routine 08/08/2018 10:34 Glaucoma Suspect R esults for this - BOTH EYES AM FAIRING WORKER Ocular Hypertension procedur e are in Bilateral the results section. documented in this encounter Results Fundus Photos - OU - Both Eyes (08/08/2018 10:34 AM FAIRING WORKER) Specimen (Source) Anatomical Location Collection Method / Collectio n Time Received Time / Laterality Volume Narrative OPHTHALMOLGY NON-IMAGING ORDERS - 11:34 AM FAIRING WORKER This result has an attachment that is no t available. 07/2018 good quality photos bilaterally Matilda Guo O.D. OPHTH PHOTOGRAPHY Performing Organization Address City/State/ZIP Code Phon e Number OPHTHALMOLGY NON-IMAGING ORDERS documented in this encounter Visit Diagnoses Diagnosis Glaucoma Suspect Ocular Hypertension Delio ateral documented in this encounter
--- OUTSIDE RECORDS SUMMARY | 2022-06-04 18:12 | XMS_ITS | Encounter Summary ---
:1940 Author Organization [facility] Address [address] [place] [address] Care Team Providers Name Role Phone Unavailable Primary Care Provider Unavailable Reason for Referral Outpatient (Routine) - Closed Specialty Diagnoses / Procedures Referred By Contact Refer red To Contact Ophthalmology Diagnoses Glaucoma Indeterminate Stage OkolonaSiva M.D. [address] [phone] Referral ID Status Reason Start Date Expiration Date Visits V isits Requested Authorized [id number] Closed Specialty 06/11/2018 06/11/2019 1 1 Services Required CUTTER Reason for Visit Outpatient (Routine) - Closed Specialty Diagnoses / Procedures Referred By Contact Refer red To Contact Neurology Diagnoses Loss Memory Short Term Antelmo Reese M.D. [address] [phone] Referral ID Status Reason Start Date Expiration Date Visits V isits Requested Authorized [id number] Closed Specialty 04/13/2018 04/13/2019 1 1 Services Required Encounter Details Date Type Department Care Team Description 06/11/2018 Comprehensive Visit Department of Kemar Fuentes M.D. [address] [place] [phone] Glaucoma Indeterminate Stage (Primary Dx ); Neurology in [place] M.D. [address] [place] [phone] Loss Memory Short Term [place], [place] 200 [place] [address] Social History Tobacco Use Types Packs/Day Years [...] How often do you attend yarsanism or sikhism Never 05/23/2022 services? Do you [...] or slept in a m[facility]p (including now)? Sex Assigned at Date Recorded Male 04/08/2018 12:55 PM CDT documented as of this encounter Consult Notes Siva Funk M.D. - 06/11/2018 1:00 PM CST Asked to see by Dr. Reese for further evaluation of cognitive concerns following previous multiple cerebral infarcts in 2014. The patient is a 77 year old right handed man with a significant past medical history of cerebrovascular disease, hypertension, coronary disease, and hyperlipidemia. In 2015, he had a left parietal regional cerebral infarct, was seen by our colleague Dr. Antelmo Parker who directed a nice workup including exclusion of atrial fibrillation with prolonged rhythm recording, and concluded risk factor modification anti-platelet therapy were the correct stroke prophylaxis options. From this he was left with deficit of a right homonymous field defect and left lower extremity tingling. Since that time, he has noted occasional problems with short-term memory, and needs repeated reminders to complete household tasks, or occasionally having problems navigating while driving familiar routes. He has not gotten lost per se, and can typically work things out by using his Garmin, or having an extra reminder from his spouse. He does not feel the problem is growing worse over time, but rather that it is been the static finding since his previous stroke. There been no symptoms of dream enactment, hallucinations, fluctuating deficit, or new focal neurological problems. He has noted a hand tremor, left more than right over the last 6 months. He will note this typicallywhen caring dishes to the sink after a meal, or other similar tasks that require sustained posture or hand use. He does not note a rest tremor. Neuro psychological testing was completed by Dr. Betancourt recently, and this showed only mild constructional praxis problems without other significant deficits, being more normal than not overall. I reviewed his brain MRI study from 2015, which shows cerebral vascular disease in the periventricular white matter and subcortical, and discrete cortical infarcts in the left occipital, right frontal,and left parietal regions. Dr. Reese obtained a recent B12 level that was normal. On neurological examination, the Kokmen Short Test of Mental Status score was 37 of 38, with domain scores as follows: Orientation: 01/30 Attention: 12/29 Learnin/4 (one trial) Calculation: 09/26 Abstraction: 08/25 Construction: 09/26 Information: 09/26 Recall: 08/26 (could not retrieve additional forgotten / items with verbal cueing) Cranial nerves without homonymous field cut today, but instead with a left monocular altitudinal field defect (and mild cupping, OS; OD was fine); motor survey, and muscle stretch reflexes were normal.Gait normal. There was a mild essential (postural and action) tremor, left > right upper extremities Impression: 1. Cerebrovascular disease 2. Cognitive concerns 3. Glaucoma suspect OS 4. Essential tremor I agree with Dr. Betancourt that the most likely cause of his mild cognitive concerns is is previous cerebrovascular disease, impacting network , activity and functioning, but unlikely to be a progressive neurodegenerative disorder. I suggested the patient keep an eye on things for any evidence of progression in symptoms or daily performance. We have a good baseline on him now, and can have him back ifthere are evolving concerns in the future. However at the current time I reassured him that I thought it was unlikely he had mild cognitive impairment or early dementia. He seems to be on the right cerebral vascular disease prophylaxis and have well controlled risk factors for the most part. Nothing further to add here at the current time. I had trouble mapping out any homonymous field defect on bedside exam, but instead found evidence for a left monocular L altitudinal field loss, and left ocular cupping which suggest the alternative diagnosis of left glaucoma. We will refer him to Ophthalmology to assess this, as there seems to be no past history of for this, nor any family history for glaucoma. Last, he is currently on bothered by is mild essential tremor, but could be initiated on either Inderal LA 80-240 mg daily, or alternatively primidone 25 mg BID, increasing further toward a target of 100 mg twice daily as needed. Other alternatives include gabapentin or topiramate which are sometimes effective, but less often so in my experience. I am happy to see him back from a neurology perspective as needed in the future. *This note has been transcribed using [employer] Direct medical dictation software, and proofreading with manual typing correction has been performed in real time. There are likely to be occasional semantic or syntactic errors in drop wire aliner. Billing N5, 60 minutes total, 35 minutes counselling/care coordination time CUTTER documented in this encounter Plan of Treatment Scheduled Referrals Name Type Priority Associated Diagnoses Order S [facility] Ophthalmology - Outpatient Routine Glaucoma Expected: General consult Referral Indeterminate Stage 06/11 (clinic) (Approximate), Expires: 06/11/2021 documented as of this encounter Visit Diagnoses Diagnosis Glaucoma Indeterminate Stage - Primary Loss Memory Short Term documented in this encounter
--- OUTSIDE RECORDS SUMMARY | 2022-06-04 18:12 | XMS_ITS | Encounter Summary ---
:1940 Author Organization [facility] Address [address] [place] [address] Care Team Providers Name Role Phone Unavailable Primary Care Provider Unavailable Encounter Details Date Type Department Care Team Description 12/20/2018 Orders Only Pharmacy Prior Tati De Jesus [phone] Social History Tobacco Use Types Packs/Day Years [...] How often do you attend yazidism or religion Never 05/23/2022 services? Do you [...]
--- OUTSIDE RECORDS SUMMARY | 2022-06-04 18:12 | XMS_ITS | Encounter Summary ---
:1940 Author Organization [facility] Address [address] [place] [address] Care Team Providers Name Role Phone Unavailable Primary Care Provider Unavailable Reason for Visit Reason Onset Date Comments Prior Auth Needed 12/20/2018 Encounter Details Date Type Department Care Team Description 12/20/2018 Clinical Communication Division of Venkatesh, Prior Auth Needed Nephrology and Ranjana S Hypertension in [phone] [place], [place] (Work) [address] [place] [address] Social History Tobacco Use Types Packs/Day Years [...] How often do you attend mandaeism or orthodoxy Never 05/23/2022 services? Do you [...] this encounter Miscellaneous Notes Telephone Encounter - Tati Haddad - 12/20/2018 3:49 PM CDT Thank you! Telephone Encounter - Ranjana Riddle - 12/20/2018 2:16 PM CDT Prior auth requested for Zolpidem 10MG TABS, forwarded to [facility] and Faxed to [phone]. documented in this encounter Plan of Treatment Not on filedocumented as of this encounter Visit Diagnoses Not on filedocumented in this encounter
--- OUTSIDE RECORDS SUMMARY | 2022-06-04 18:12 | XMS_ITS | Encounter Summary ---
:1940 Author Organization [facility] Address [address] [place] [address] Care Team Providers Name Role Phone Unavailable Primary Care Provider Unavailable Reason for Visit Reason Onset Date Comments Prescription Mailed to Patient 02/07/2019 Encounter Details Date Type Department Care Team Description 02/07/2019 Clinical Division of Sona Reese Ma Communication Nephrology and Antelmo Clayton M.D. to Patient Hypertension in [address] [place] [address] [place] [phone] [place], [place] [phone] (Work) [phone] Social History Tobacco Use Types Packs/Day Years [...] How often do you attend yazidism or taoist Never 05/23/2022 services? Do you [...] or slept in a fdc (including now)? Sex Assigned at Date Recorded Male 04/08/2018 12:55 PM CDT documented as of this encounter Miscellaneous Notes Telephone Encounter - Josue Purvis - 02/07/2019 3:24 PM CDT Prescription for TRAMADOL mailed to patient. documented in this encounter Plan of Treatment Not on filedocumented as of this encounter Visit Diagnoses Not on filedocumented in this encounter
--- OUTSIDE RECORDS SUMMARY | 2022-06-04 18:12 | XMS_ITS | Encounter Summary ---
:1940 Author Organization [facility] Address [address] [place] [address] Care Team Providers Name Role Phone Unavailable Primary Care Provider Unavailable Encounter Details Date Type Department Care Team Description 08/08/2018 Ancillary Department of Softing [place], Glaucoma Hall spect Procedure Ophthalmology in Matilda Moses O.D. Ocular Hypertension [place], [place] [address] [facility] Bilateral [address] [place] [phone] [phone] Social History Tobacco Use Types Packs/Day Years [...] 05/23/2022 relatives? How often do you attend pentecostalism or christianity Never 05/23/2022 services? Do you belong to any clubs or organizations such as No 05/23/2022 pentecostalism groups, unions, fraternal or athletic groups, or [...] or slept in a fpc (including now)? Sex Assigned at Date Recorded Male 04/08/2018 12:55 PM CDT documented as of this encounter Plan of Treatment Not on filedocumented as of this encounter Procedures Procedure Name Priority Date/Time Associated Diagnosis Comme nts OPTICAL COHERENCE Routine 08/08/2018 10:34 Glaucoma Suspect Re sults for this TOMOGRAPHY (OCT) - AM RETAIL FIELD MERCHANDISER Ocular Hypertension pr ocedure are in OPTIC NERVE - OU - Bilateral the resul ts BOTH EYES section. documented in this encounter Results Optical Coherence Tomography (OCT) - Optic Nerve - OU - Both Eyes (08/08/2018 10:34 AM RETAIL FIELD MERCHANDISER) Specimen (Source) Anatomical Location Collection Method / Collectio n Time Received Time / Laterality Volume Narrative OPHTHALMOLGY NON-IMAGING ORDERS - 11:28 AM RETAIL FIELD MERCHANDISER OCT device used is [employer]rus . Notes [...]
--- OUTSIDE RECORDS SUMMARY | 2022-06-04 18:12 | XMS_ITS | Encounter Summary ---
:1940 Author Organization [facility] Address [address] [place] [address] Care Team Providers Name Role Phone Unavailable Primary Care Provider Unavailable Encounter Details Date Type Department Care Team Description 04/30/2018 Orders Only Division of Community Health Karol Hernandez M.D. Internal Medicine, [address] [place] [address], in [place], [place] [address] [address] [facility] [place] [phone] Social History Tobacco Use Types Packs/Day Years [...] 05/23/2022 relatives? How often do you attend buddhism or jew Never 05/23/2022 services? Do you belong to any clubs or organizations such as No 05/23/2022 buddhism groups, unions, fraternal or athletic groups, or [...]
--- OUTSIDE RECORDS SUMMARY | 2022-06-04 18:12 | XMS_ITS | Encounter Summary ---
:1940 Author Organization [facility] Address [address] [place] [address] Care Team Providers Name Role Phone Unavailable Primary Care Provider Unavailable Reason for Visit Reason Comments Med Management Encounter Details Date Type Department Care Team Description 08/09/2018 Medication Ferny Castle, [facility] Daysi Moses Disease Transplantation and Pharm.D., R. Ph. Clinical Regeneration [address] [place] [address] in [place], [place] [address] [place] [phone] [place], [place] [phone] (Work) [phone] Social History Tobacco Use Types Packs/Day Years [...] How often do you attend religion or sabianist Never 05/23/2022 services? Do you [...] documented as of this encounter Consult Notes Daysi Smith, Pharm.D., R.Ph. - 08/09/2018 3:10 PM CST SUBJECTIVE REASON FOR CONSULT Targeted review of 13-gene RIGHT 10K pharmacogenomic test results from 03/25/2018. PCP is No primary care provider on file.. ASSESSMENT / PLAN Drug levels may increase or decrease depending on metabolizer status. See OneOme Report for more detail. 1. These medications have been noted to have drug-gene interactions for your patient: tramadol (may result in reduced efficacy and had a dose increase in 2014) and sertraline currently taking 50 mg daily (may have increased risk for adverse effects) If patient is tolerating current medications, no changes may be needed. However, if patient has inefficacy or adverse effects, a dose change or alternate medications may be considered. May consider discussion or eConsult with MTM or Pharmacogenomics Pharmacist via the C RST IND R10K Epic In Basket. Consideration of the OneOme Report may assist in future prescribing. 2. Drug-Drug interactions No major interactions 3. Additional drug or drug-gene comments None. This patient was not personally interviewed or examined for this chart review. The history and examination findings are based on the clinical documentation provided and/or discussion with referring provider/care steam boiler fireman who had personally interviewed and examined the patient. Application of these or other clinical recommendations should always be subject to provider discretion and clinical discussions with patient going forward. Total time spent was 10 minutes. Notify PCP code: Jay Smith Pharm.D., R.Ph. ATRIST documented in this encounter Plan of Treatment Not on filedocumented as of this encounter Visit Diagnoses Diagnosis Coronary Artery Disease (Unspecified) documented in this encounter
--- OUTSIDE RECORDS SUMMARY | 2022-06-04 18:12 | XMS_ITS | Encounter Summary ---
:1940 Author Organization [facility] Address [address] [place] [address] Care Team Providers Name Role Phone Unavailable Primary Care Provider Unavailable Reason for Referral Outpatient (Routine) - Closed Specialty Diagnoses / Procedures Referred By Contact Refer red To Contact Nephrology and Diagnoses Hypertension Personal History Hyperlipidemia Loss Memory Short Term Coronary Artery Disease (Unspecified) [facility] [address] [place] [phone] Referral ID Status Reason Start Date Expiration Date Visits Requ ested Visits Authorized [id number] Closed 12/13/2018 12/13/2019 1 1 Reason for Visit Reason Onset Date Comments Pre-visit Testing Orders 12/13/2018 Encounter Details Date Type Department Care Team Description 12/13/2018 Clinical Communication Division of Toney Reese Testing Nephrology and Antelmo Clayton M.D. Orders Hypertension in [address] [place] [address] [place] [phone] [place], [place] [phone] (Work) [phone] Social History Tobacco Use Types Packs/Day Years [...] How often do you attend synagogue or methodist Never 05/23/2022 services? Do you belong to [...] Notes Telephone Encounter - Adalgisa Guillen - 12/13/2018 10:40 AM CDT Please sign orders for February. Thank you documented in this encounter Plan of Treatment Scheduled Referrals Name Type Priority Associated Diagnoses Order S [facility] Nephrology office Outpatient Referral Routine Hypertension Per soto Expected: visit (clinic) History 02/23/2019 Hyperlipidemia (Approximate), Loss Memory Short Expires: Term 02/23/2022 Coronary Artery Disease documented as of this encounter Results Urinalysis with Microscopic: Urine, Clean Catch (03/07/2019 10:01 AM CDT) [facility] Method Time Signature Source Midstream 03/07/2019 10:01 AM CDT Appearance Normal Normal 03/07/2019 10:43 AM CDT Osmolality, U 371 150 - 1150 03/07/2019 mOsm/kg 11:30 AM CDT pH, U 6.7 4.5 - 8.0 03/07/2019 11:30 AM CDT Comment: ----ADDITIONAL INFORMATION---- This test was developed and its performa nce characteristics determined by [facility] in a manner co nsistent with CLIA [...] Organization Address City/State/ZIP Code Phon e Number [facility] - [address] [place], [place] [address] [facility] (ABNORMAL) BUN (Blood Urea Nitrogen) (03/07/2019 9:34 [...] Organization Address City/State/ZIP Code Phon e Number [facility] - 200 [place] [address] [facility] (ABNORMAL) Creatinine with Estimated GFR (03/07/2019 9:34 AM CDT) Analysis Performed At Patho logist Time Signature Creatinine 1.46 (H) 0.74 - 03/07/2019 1.35 mg/dL 10:34 AM CDT eGFR-Non 45 (L) >=60 03/07/2019 Black/ mL/min/BSA 10:34 AM CDT Kosovan Comment: ----ADDITIONAL INFORMATION---- Estimated GFR calculated using [...] M.D. LAB BLOOD ADD-ON Performing Organization Address [facility]/ZIP Code Phon e Number [facility] - 200 [place] [address] [facility] (ABNORMAL) Glucose, Fasting (03/07/2019 9:34 AM CDT) [...] LAB BLOOD NON ADD-ON Performing Organization Address City/[facility]/ZIP Code Phon e Number [facility] - [address] [place] [address] [facility] Bicarbonate (03/07/2019 9:34 AM CDT) P athologist Signature Bicarbonate, S 27 22 - 29 03/07/2019 mmol/L 10:34 AM CDT Specimen Anatomical Collection Method Collection Time Receive d Time (Source) Location / / Volume Laterality Blood (Blood, 03/07/2019 9:34 AM 03/07/20 19 9:52 Venous) CDT AM CDT Antelmo Reese M.D. LAB BLOOD ADD-ON Performing Organization Address [facility] Code Phon e Number [facility] - [address] CBC without Differential (03/07/2019 9:34 AM CDT) P athologist Signature Hemoglobin 13.3 13.2 - 03/07/2019 [...] M.D. LAB BLOOD ADD-ON Performing Organization Address City/[facility] Code Phon e Number [facility] - [address] [place] [address] [facility] Chloride (03/07/2019 9:34 AM CDT) P athologist Signature Chloride, S 98 98 - 107 03/07/2019 mmol/L 10:34 AM CDT Specimen Anatomical Collection Method Collection Time Receive d Time (Source) Location / / Volume Laterality Blood (Blood, 03/07/2019 9:34 AM 03/07/20 19 9:52 Venous) CDT AM CDT Antelmo Reese M.D. LAB BLOOD ADD-ON Performing Organization Address City/[facility] Code Phon e Number [facility] - [address] [place] [address] [facility] Lipid Panel (03/07/2019 9:34 AM CDT) athologist Signature Cholesterol, 128 mg/dL 03/07/2019 Total 10:34 AM [...] M.D. LAB BLOOD ADD-ON Performing Organization Address City/[facility] Code Phon e Number [facility] - [address] [place] [address] [facility] Sodium (03/07/2019 9:34 AM CDT) athologist Signature Sodium, S 138 135 - 145 03/07/2019 mmol/L 10:34 AM CDT Specimen Anatomical Collection Method Collection Time Receive d Time (Source) Location / / Volume Laterality Blood (Blood, 03/07/2019 9:34 AM 03/07/20 19 9:52 Venous) CDT AM CDT Antelmo Reese M.D. LAB BLOOD ADD-ON Performing Organization Address City/State/ZIP Code Phon e Number [facility] - [address] [place] [address] [facility] Potassium (03/07/2019 9:34 AM CDT) P athologist Signature Potassium, S 4.2 3.6 - 5.2 03/07/2019 mmol/L 10:34 AM CDT Specimen Anatomical Collection Method Collection Time Receive d Time (Source) Location / / Volume Laterality Blood (Blood, 03/07/2019 9:34 AM 03/07/20 9:52 Venous) CDT AM CDT Antelmo Reese M.D. LAB BLOOD ADD-ON Performing Organization Address City/State/ZIP Code Phon e Number [facility] - [address] [place] [address] [facility] documented in this encounter Visit Diagnoses Diagnosis Hypertension Personal History - Primary Hyperlipidemia Loss Memory Short Term Coronary Artery Disease (Unspecified) documented in this encounter
--- OUTSIDE RECORDS SUMMARY | 2022-06-04 18:12 | XMS_ITS | Encounter Summary ---
:1939 Author Organization [facility] Address [address] [place] [address] Care Team Providers Name Role Phone Unavailable Primary Care Provider Unavailable Reason for Visit Outpatient (Routine) - Closed Specialty Diagnoses / Procedures Referred By Contact Refer red To Contact Dermatology Diagnoses Aftercare Suture Removal Non-Injury Alex Tolliver M.D. [facility] [address] [place] [phone] Referral ID Status Reason Start Date Expiration Date Visits Requ ested Visits Authorized [id number] Closed 06/27/2018 06/27/2019 1 1 Encounter Details Date Type Department Care Team Description 07/11/2018 Nurse Only Department of Dermatology in Alex Morales M.D. [address] [place] [phone] [place], [place] Emperatriz Barker R.N. [address] [place] [phone] Social History Tobacco Use Types Packs/Day [...] 05/23/2022 relatives? How often do you attend religious or taoist Never 05/23/2022 services? Do you belong to any clubs or organizations such as No 05/23/2022 religious groups, unions, fraternal or athletic groups, or [...] documented as of this encounter Procedure Notes Emperatriz Barker L.P.N. - 07/11/2018 1:00 PM CST Patient returns for suture removal. Status post Excision done on June 27, [address] Renate Tolliver ([id number]) to the right upper abdomen for compound nevus with severe atypia. Verbal consent for procedure obtained from patient. Supervising beauty sales consultant was immediately available, but consultation was not required. Supervising Physician: Dr. Heather Negro ([phone]). Final Pause: A final pause occurred just before the procedure start, during which the entire procedure team actively confirmed the correct patient, procedure, site, special equipment, and special requirements. Incision is well approximated, without swelling, without odor, without drainage, without bruising and slight erythema down suture line. Patient states the area has been slightly itchy. All suture(s) removed without difficulty. No apparent complications. No dressing was applied Teaching provided to patient. Evaluation of learning: reinforcement of teaching provided. Time spent with patient: 15 minutes. INE BOSS documented in this encounter Plan of Treatment Not on filedocumented as of this encounter Visit Diagnoses Diagnosis Aftercare Suture Removal Non-Injury documented in this encounter
--- OUTSIDE RECORDS SUMMARY | 2022-06-04 18:12 | XMS_ITS | Encounter Summary ---
:1940 Author Organization [facility] Address [address] [place] [address] Care Team Providers Name Role Phone Unavailable Primary Care Provider Unavailable Reason for Visit Reason Comments Med Refill Encounter Details Date Type Department Care Team Description 06/14/2018 Refill Division of Nephrology and Antelmo White M.D. Med Refill Hypertension in [place] [address] [address] [place] [address] [place] [address] [place], [place] [phone] [phone] Social History Tobacco Use Types Packs/Day Years [...] often do you attend latter day or bahai Never 05/23/2022 services? Do you belong to [...] this encounter Miscellaneous Notes Telephone Encounter - Roseann Desouza RChristianN. - 06/17/2018 11:30 AM SUPERVISOR IN CHARGE Prescription forwarded to provider for approval. Outside RN protocol due to historical entry. RVISOR IN CHARGE documented in this encounter Plan of Treatment Not on filedocumented as of this encounter Visit Diagnoses Not on filedocumented in this encounter
--- OUTSIDE RECORDS SUMMARY | 2022-06-04 18:13 | XMS_ITS | Encounter Summary ---
:1940 Author Organization [facility] Address [address] [place] [address] Care Team Providers Name Role Phone Unavailable Primary Care Provider Unavailable Reason for Visit Reason Comments Med Refill Encounter Details Date Type Department Care Team Description 01/23/2018 Refill Division of Nephrology and Karol Ron R.N. Med Refill Hypertension in [place] [address] [place], [place] [address] [place] [phone] [place] [address] [phone] Social History Tobacco Use Types Packs/Day Years Used Date Smoking Tobacco: Former Alcohol Habits Answer Date Recorded How often [...] How often do you attend muslim or quaker Never 05/23/2022 services? Do you [...] this encounter Miscellaneous Notes Telephone Encounter - Karol Hughes, R.N. - 01/23/2018 11:41 AM CDT Prescription forwarded to provider for approval. Outside RN protocol due to historical entry. documented in this encounter Plan of Treatment Not on filedocumented as of this encounter Visit Diagnoses Diagnosis Hypertension Essential Primary - Primary documented in this encounter
--- OUTSIDE RECORDS SUMMARY | 2022-06-04 18:13 | XMS_ITS | Encounter Summary ---
:1940 Author Organization [facility] Address [address] [place] [address] Care Team Providers Name Role Phone Unavailable Primary Care Provider Unavailable Encounter Details Date Type Department Care Team Description 04/06/2015 Historical Ophthalmology RST OPH Ric August O.D. [address] [place], [place] [phone] (Wo rk) Social History Tobacco Use Types Packs/Day Years Used Date Smoking Tobacco: Never Assessed Alcohol Habits Answer Date Recorded How often [...] How often do you attend religious or restorationist Never 05/23/2022 services? Do you [...] documented as of this encounter Progress Notes Ric August O.D. - 04/06/2015 7:30 AM CDT Eye General CHIEF COMPLAINT Eyes water, feel strained ; headlights, sunlight causes sensitivity HISTORY OF PRESENT ILLNESS Eyes water, feel strained ;notes this is worsened when using computer and television; both eyes; noted x 2 years. Headlights, sunlight causes sensitivity, strain; noted post cataract surgery (4-5 years). Flashes ; unsure which eye; noted x one year; rare. 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 CD Reports - EYEGEN Id: [id number] Status: Fnl documented in this encounter Plan of Treatment Not on filedocumented as of this encounter Visit Diagnoses Not on filedocumented in this encounter
--- OUTSIDE RECORDS SUMMARY | 2022-06-04 18:13 | XMS_ITS | Encounter Summary ---
:1940 Author Organization [facility] Address [address] [place] [address] Care Team Providers Name Role Phone Unavailable Primary Care Provider Unavailable Encounter Details Date Type Department Care Team Description 02/13/2017 Historical Ophthalmology RST OPH Shelly Vallejo M.D. [address] [place], [place] [phone] (Wo rk) Social History Tobacco Use Types [...] How often do you attend pentecostalism or tenriism Never 05/23/2022 services? Do you [...] documented as of this encounter Progress Notes Cheyenne Vallejo M.D. - 02/13/2017 8:06 AM CDT Eye General CHIEF COMPLAINT Annual Examination HISTORY OF PRESENT ILLNESS Floaters alone; both eyes; x many years; constantly. Patient states his vision has been stable since last visit. IMPRESSION / REPORT / PLAN #1 History of occipital stroke with righthomonymous hemianopia stable - observe #2 Pseudophakia OU doing well - observe #3 Dry eyes rx with artificial tears prn #4 Myopia, Presbyopia rx given overall doing well with reading glasses DIAGNOSIS #1 History of occipital stroke with righthomonymous hemianopia #2 Pseudophakia OU #3 Dry eyes #4 Myopia, Presbyopia CDM Reports - EYEGEN Id: [id number] Status: Fnl documented in this encounter Plan of Treatment Not on filedocumented as of this encounter Visit Diagnoses Not on filedocumented in this encounter
--- OUTSIDE RECORDS SUMMARY | 2022-06-04 18:13 | XMS_ITS | Encounter Summary ---
:1940 Author Organization [facility] Address [address] [place] [address] Care Team Providers Name Role Phone Unavailable Primary Care Provider Unavailable Reason for Referral Outpatient (Routine) - Closed Specialty Diagnoses / Procedures Referred By Contact Refer red To Contact Neurology Diagnoses Loss Memory Short Term Antelmo Reese M.D. [facility] [address] [place] [address] Referral ID Status Reason Start Date Expiration Date Visits V isits Requested Authorized [id number] Closed Specialty 04/13/2018 04/13/2019 1 1 Services Required Reason for Visit Reason Comments Hypertension Appointment Request (Routine) - Closed Specialty Diagnoses / Procedures Referred By Contact Refer red To Contact Nephrology and Hypertension Referral ID Status Reason Start Date Expiration Date Visits Requ ested Visits Authorized [id number] Closed 01/04/2018 01/04/2019 1 Encounter Details Date Type Department Care Team Description 04/12/2018 Office Visit Division of Nephrology Antelmo Reese Memory Short Term (Primary Dx); and Hypertension shamir Clayton M.D. Hypertension Personal History; [place], [place] [address] [facility] Coronary Artery Disease; [address] [place], [place] [phone] Social History Tobacco Use Types Packs/Day Years [...] How often do you attend mandaeism or buddhism Never 05/23/2022 services? Do you [...] Sign Reading Time Taken Comments Blood Pressure 117/64 04/12/2018 8:12 AM CDT Pulse 66 04/12/2018 8:12 AM CDT Temperature 36 ??C (96.8 ??F) 04/12/2018 8:12 AM CDT Respiratory Rate - - Oxygen Saturation - - Inhaled Oxygen Concentration - - Weight 85.5 kg (188 lb 7.9 oz) 04/12/2018 8:12 AM CDT Height - - Body Mass Index 26.29 04/11/2018 1:20 PM CDT documented in this encounter H&P Notes Antelmo Reese M.D. - 04/12/2018 8:30 AM CDT REFERRAL SOURCE Self REASON FOR VISIT Constipation, memory symptoms. HISTORY OF PRESENT ILLNESS It was a pleasure to see Mr. Merrill , who is a very pleasant 77 y.o. I also visited with his . He was noting constipation, but after increasing MiraLax, he has been doing well. He had a colonoscopy here this week which was normal other than 2 small polyps which were removed. He has excellent long-term memory, but he has trouble remembering short-term items in tasks. PAST MEDICAL HISTORY 1. 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 2. Coronary heart disease. He rarely has chest pain. 3. Chronic bilateral buttock pain. X-rays of his pelvis show no significant abnormality. 4. Chronic insomnia, zolpidem works well. 5. Hyperlipidemia, he takes a statin. 6. Benign prostatic hyperplasia. He is currently using tamsulosin. 7. Left total hip arthroplasty. 8. Hypertension, generally his blood pressure is very good with readings of 120s to 130s over 80s. REVIEW OF SYSTEMS Reduced hearing. Reduced force of the urinary stream. VITAL SIGNS BP 117/64 Pulse 66 Temp 36 ??C Wt 85.5 kg BMI 26.29 kg/m?? PHYSICAL EXAMINATION Constitutional: Very pleasant. Healthy. Cardiovascular: Normal rate, regular rhythm, normal heart sounds and intact distal pulses. He exhibits no edema. Pulmonary/Chest: Breath sounds normal. He has no wheezes. He has no rales. Abdominal: Bowel sounds are normal. He exhibits no distension. There is no tenderness. Genitourinary: Prostate normal. Musculoskeletal: Normal range of motion. Lymphadenopathy: He has no cervical adenopathy. LAB RESULTS Blood glucose is elevated at 141, with previous blood glucose is been essentially normal. The other blood tests were fine. Urinalysis is normal. IMPRESSION 1. Memory symptoms He is noting some difficulty with short-term memory. 2. Constipation, improved 3. Elevated blood glucose PLAN AND RECOMMENDATIONS To evaluate the memory symptoms, I will arrange psychology testing and neurology consultation. We will recheck the blood glucose. Antelmo Reese M.D. documented in this encounter Plan of Treatment Scheduled Referrals Name Type Priority Associated Diagnoses Order S [facility] Neurology - General Outpatient Referral Routine Loss Memory Sh ort Expected: consult (clinic) Term 04/13/2018 (Approximate), Expires: 04/12/2021 documented as of this encounter Results Vitamin B12 Assay (05/27/2018 11:31 AM TACK PULLER MACHINE) athologist Signature Vitamin B12 464 180 914 05/27/2018 [facility] Assay, S ng/L 1:31 PM [facility]ACH[facility] Specimen Anatomical Collection Method Collection Time Receive d Time (Source) Location / / Volume Laterality Blood (Blood, 05/27/2018 11:31 05/27/2018 Venous) AM TACK PULLER MACHINE 11:54 AM TACK PULLER MACHINE Antelmo Reese M.D. LAB BLOOD ADD-ON Performing Organization Address City/[facility] Code Phon e Number [facility] - [address] [place] [phone] 05 [facility] (ABNORMAL) Glucose, Fasting (05/27/2018 11:31 AM TACK PULLER MACHINE) P athologist Signature Glucose, P 102 (H) 70 - 100 05/27/2018 [facility] mg/dL 12:30 PM [facility] Last Intake 18 hr 05/27/2018 [facility] 11:54 AM [facility] Specimen Anatomical Collection Method Collection Time Receive d Time (Source) Location / / Volume Laterality Blood (Blood, 05/27/2018 11:31 05/27/2018 Venous) AM TACK PULLER MACHINE 11:54 AM TACK PULLER MACHINE Antelmo Reese M.D. LAB BLOOD NON ADD-ON Performing Organization Address City/State/[facility] Code Phon e Number [facility] - [address] [place] [phone] [facility] documented in this encounter Visit Diagnoses Diagnosis Loss Memory Short Term - Primary Hypertension Personal History Coronary Artery Disease (Unspecified) Hypertension Essential Primary documented in this encounter
--- OUTSIDE RECORDS SUMMARY | 2022-06-04 18:13 | XMS_ITS | Encounter Summary ---
:1940 Author Organization [facility] Address [address] [place] [address] Care Team Providers Name Role Phone Unavailable Primary Care Provider Unavailable Encounter Details Date Type Department Care Team Description 04/11/2018 Hospital Encounter Department of Antelmo Reese lipidemia Laboratory Medicine and R, [facility], [address] [address] [place] [address] [place], [place] (Work) [phone] Social History Tobacco Use Types Packs/Day Years [...] How often do you attend christian or christianity Never 05/23/2022 services? Do you [...] needed. As needed (both eyes). POLYETHYLENE GLYCOL 3350 Take 1 g by mouth 0 10/24 ORAL daily. MiraLAX powder amLODIPine (NORVASC) 5 Take 1 tablet by 0 017 06/14/2018 mg tablet mouth daily. atenolol (TENORMIN) 50 Take 1 tablet by 0 017 04/12/2018 mg tablet mouth every evening. carvedilol (COREG) 12.5 Take 1 tablet by 0 201604/12/2018 mg tablet mouth 2 (two) times a day. losartan-hydroCHLOROthia TAKE 1 TABLET EVERY 90 tablet 0 04/12/2018 zide (HYZAAR) 100-25 mg MORNING per tabletIndications: Hypertension Personal History nitroglycerin Place 1 tablet under 0 02/12/2017 0 03/07/2019 (NITROSTAT) 0.4 mg SL the tongue as tablet needed. Place 1 tab under the tongue at first sign of chest pain. If no relief in 5 min, call 911. Repeat dose every 5 min up to 2 additional doses if chest pain continues. rosuvastatin (CRESTOR) TAKE 1 TABLET EVERY 90 tablet 0 06/201704/12/2018 10 mg tabletIndications: EVENING Coronary Artery Disease (Unspecified) sertraline (ZOLOFT) 50 Take 1 tablet (50 mg 100 tablet 2 06/201704/12/2018 mg tabletIndications: total) by mouth Hypertension Essential daily. Primary tamsulosin (FLOMAX) 0.4 Take 1 capsule by 0 02/1204/12/2018 mg 24 hr capsule mouth daily. traMADol (ULTRAM) 50 mg Take 1 tablet (50 mg 200 tablet 3 04/12/2018 tablet total) by mouth every 12 (twelve) hours as needed for pain. zolpidem (AMBIEN) 10 mg Take 1 tablet (10 mg 100 tablet 3 04/12/2018 tablet total) by mouth at bedtime as needed for sleep. documented as of this encounter Plan of Treatment Not on filedocumented as of this encounter Procedures Procedure Name Priority Date/Time Associated Diagnosis Comme nts MICROSCOPIC Routine 04/11/2018 9:20 AM Results f or this AUTOMATED CDT procedure are i n the results section. URINALYSIS WITH Routine 04/11/2018 9:20 AM Hyperlipidemia Resu lts for this MICROSCOPIC CDT procedure are i n the results section. documented in this encounter Results Microscopic Automated (04/11/2018 9:20 AM CDT) P athologist Signature Microscopy Normal 04/11/2018 [facility] 10:33 AM CDT [facility] Specimen Anatomical Collection Method Collection Time Receive d Time (Source) Location / / Volume Laterality Urine 04/11/2018 9:20 AM 8 9:20 CDT AM CDT Antelmo Reese M.D. LAB URINE ORDERABLES Performing Organization Address City/State/ZIP Code Phon e Number [facility] - [address] [place], [place] [address] [facility] Urinalysis with Microscopic (04/11/2018 9:20 AM CDT) Patholo gist Method Time Signature Source Midstream 04/11/2018 [facility] 9:20 AM CDT [facility] Appearance Normal Normal 04/11/2018 [facility] 9:51 AM CDT [facility] Osmolality, U 292 150 - 1150 04/11/2018 [facility] mOsm/kg 10:29 AM CDT [facility] pH, U 6.2 4.5 - 8.0 04/11/2018 [facility] 10:29 AM CDT [facility] Comment: ----ADDITIONAL INFORMATION---- This test was developed and its performa nce characteristics determined by [facility] in a manner co nsistent with CLIA requirements. This test has not bee n cleared or approved by the U.S. Food and Drug Admin istration. Glucose 2 0 - 15 mg/dL 04/11/2018 9:51 AM CDT [facility] Protein, U 4 <26 mg/dL 04/11/2018 9:51 AM CDT [facility] Comment: ----ADDITIONAL INFORMATION---- On 12/19/2016 the total protein assay me thod changed resulting in approximately a 15% increase in prote in values. Protein/Osmolality 0.14 <0.42 Ratio 04/11/2018 10:29 AM [facility] Comment: ----ADDITIONAL INFORMATION---- On 12/19/2016 the total protein assay me thod changed resulting in approximately a 15% increase in prote in values. Predicted 24 Hr 142 mg/24 h 04/11/2018 10:29 AM [facility] Protein [facility] Predicted Range 45-446 mg/24 h 04/11/2018 10:29 AM [facility] Hemoglobin, QL Negative Negative 04/11/2018 10:33 AM [facility] Specimen Anatomical Collection Method Collection Time Receive d Time (Source) Location / / Volume Laterality Urine (Urine, 04/11/2018 9:20 AM 04/11/20 18 9:20 Clean Catch) CDT AM CDT Antelmo Reese M.D. LAB URINE ORDERABLES Performing Organization Address City/State/ZIP Code Phon e Number [facility] - [address] [place] [phone] [facility] documented in this encounter Visit Diagnoses Diagnosis Hyperlipidemia documented in this encounter
--- OUTSIDE RECORDS SUMMARY | 2022-06-04 18:13 | XMS_ITS | Encounter Summary ---
:1940 Author Organization [facility] Address [address] [place] [address] Care Team Providers Name Role Phone Unavailable Primary Care Provider Unavailable Reason for Referral Outpatient (Routine) - Closed Specialty Diagnoses / Procedures Referred By Contact Refer red To Contact Diagnoses Hyperlipidemia Antelmo Reese M.D. [facility] Procedures Colonoscopy [address] [place] [phone] Referral ID Status Reason Start Date Expiration Date Visits Requ ested Visits Authorized [id number] Closed 01/01/2018 01/01/2019 1 1 Outpatient (Routine) - Closed Specialty Diagnoses / Procedures Referred By Contact Refer red To Contact Dermatology Diagnoses Hyperlipidemia Antelmo Reese M.D. [facility] [address] [place] [phone] Referral ID Status Reason Start Date Expiration Date Visits V isits Requested Authorized [id number] Closed Specialty 01/01/2018 01/01/2019 1 1 Services Required Reason for Visit Reason Onset Date Comments Pre-visit Testing Orders 01/01/2018 Encounter Details Date Type Department Care Team Description 01/01/2018 Clinical Communication Division of Antwan Reese-v isit Testing Nephrology and Antelmo Clayton M.D. Orders Hypertension in [address] [place], [place] [address] [place] [id number] [place], [place] [phone] (Work) [phone] Social History Tobacco Use Types Packs/Day Years [...] How often do you attend lutheran or faith Never 05/23/2022 services? Do you [...] or slept in a snf (including now)? Sex Assigned at Date Recorded Male 04/08/2018 12:55 PM CDT documented as of this encounter Plan of Treatment Scheduled Referrals Name Type Priority Associated Diagnoses Order S andressa Dermatology - Outpatient Referral Routine Hyperlipidemia Expec adenike: General consult 03/25/2018 (clinic) (Approximate), Expires: 01/01/2021 documented as of this encounter Results Urinalysis with Microscopic (04/11/2018 9:20 AM CDT) [facility] gist Method Time Signature Source Midstream 04/11/2018 [facility] 9:20 AM CDT LAB[facility]ATORIES - [facility] Appearance Normal Normal 04/11/2018 [facility] 9:51 AM CDT [facility] - [facility] Osmolality, U 292 150 - 1150 04/11/2018 [facility] mOsm/kg 10:29 AM [facility] pH, U 6.2 4.5 - 8.0 04/11/2018 [facility] 10:29 AM [facility] Comment: ----ADDITIONAL INFORMATION---- This test was developed and its performa nce characteristics determined by [facility] in a manner co nsistent with CLIA requirements. This test has not bee n cleared or approved by the U.S. Food and Drug Admin istration. Glucose 2 0 - 15 mg/dL 04/11/2018 9:51 AM T [facility] Protein, U 4 <26 mg/dL 04/11/2018 9:51 AM T [facility] Comment: ----ADDITIONAL INFORMATION---- On 12/19/2016 the total protein assay me thod changed resulting in approximately a 15% increase in prote in values. Protein/Osmolality 0.14 <0.42 Ratio 04/11/2018 10:29 AM [facility] Comment: ----ADDITIONAL INFORMATION---- On 12/19/2016 the total protein assay me thod changed resulting in approximately a 15% increase in prote in values. Predicted 24 Hr 142 mg/24 h 04/11/2018 10:29 AM [facility] Protein [facility] Predicted Range 45-446 mg/24 h 04/11/2018 10:29 AM [facility] Hemoglobin, QL Negative Negative 04/11/2018 10:33 AM [facility] Specimen Anatomical Collection Method Collection Time Receive d Time (Source) Location / / Volume Laterality Urine (Urine, 04/11/2018 9:20 AM 04/11/20 9:20 Clean Catch) CDT AM CDT Antelmo Reese M.D. LAB URINE ORDERABLES Performing Organization Address City/State/ZIP Code Phon e Number [facility] - [address] [place], [place] [address] [facility] Sodium (04/11/2018 8:05 AM CDT) P athologist Signature Sodium, S 138 135 - 145 04/11/2018 [facility] mmol/L 9:39 AM T [facility] Specimen Anatomical Collection Method Collection Time Receive d Time (Source) Location / / Volume Laterality Blood (Blood, 04/11/2018 8:05 AM 04/11/20 8:26 Venous) CDT AM CDT Antelmo Reese M.D. LAB BLOOD ADD-ON Performing Organization Address [facility] Phon e Number [facility] - [address] [place] [address] [facility] Potassium (04/11/2018 8:05 AM CDT) P athologist Signature Potassium, S 4.2 3.6 - 5.2 04/11/2018 [facility] mmol/L 9:39 AM CDT [facility] Specimen Anatomical Collection Method Collection Time Receive d Time (Source) Location / / Volume Laterality Blood (Blood, 04/11/2018 8:05 AM 04/11/20 8:26 Venous) CDT AM CDT Antelmo Reese M.D. LAB BLOOD ADD-ON Performing Organization Address [facility] Phon e Number [facility]ATORIES - [address] [place] [address] [facility] Lipid Panel (04/11/2018 8:05 AM CDT) P athologist Signature Cholesterol, 109 mg/dL 04/11/2018 [facility] Total 9:39 AM CDT [facility] Comment: ----REFERENCE VALUE---- Desirable: < 200 Borderline high: 200 - 239 High: > or = 240 Triglycerides 79 mg/dL 04/11/2018 9:39 AM CDT [facility] Comment: ----REFERENCE VALUE---- Normal: <150 Borderline high: 150-199 High: 200-499 Very high: > or =500 Cholesterol, HDL, S 56 >=40 mg/dL 04/11/2018 9:39 AM CDT [facility] Calculated LDL 37 mg/dL 04/11/2018 9:39 AM CDT [facility] Comment: ----REFERENCE VALUE---- Desirable: <100 Above Desirable: 100-129 Borderline high: 130-159 High: 160-189 Very high: > or =190 Cholesterol, Non-HDL, 53 mg/dL 04/11/2018 9:39 AM CDT [facility] Calculated - [facility] Comment: ----REFERENCE VALUE---- Desirable: <130 Above Desirable: 130-159 Borderline high: 160-189 High: 190-219 Very high: > or =220 Specimen Anatomical Collection Method Collection Time Receive d Time (Source) Location / / Volume Laterality Blood (Blood, 04/11/2018 8:05 AM 04/11/20 8:26 Venous) CDT AM CDT Antelmo Reese M.D. LAB BLOOD ADD-ON Performing Organization Address City/[facility] Phon e Number [facility] - [address] [place] [address] [facility] (ABNORMAL) Glucose, Fasting (04/11/2018 8:05 AM CDT) P athologist Signature Glucose, P 141 (H) 70 - 100 04/11/2018 [facility] mg/dL 9:14 AM CDT [facility] - [facility] Last Intake 16 hr 04/11/2018 [facility] 8:26 AM CDT [facility] - [facility] Specimen Anatomical Collection Method Collection Time Receive d Time (Source) Location / / Volume Laterality Blood (Blood, 04/11/2018 8:05 AM 04/11/20 8:26 Venous) CDT AM CDT Antelmo Reese M.D. LAB BLOOD NON ADD-ON Performing Organization Address [facility] Phon e Number [facility] - [address] [place] [address] [facility] (ABNORMAL) Creatinine with Estimated GFR (04/11/2018 8:05 AM CDT) Patholo gist Method Time Signature Creatinine 1.56 (H) 0.74 - 04/11/2018 [facility] 1.35 9:39 AM CDT LABORATORIES - mg/dL [facility] eGFR-Non 42 (L) >=60 04/11/2018 [facility] Black/ mL/min/BS 9:39 AM CDT LABORATORIES - [place] A [facility] Comment: ----ADDITIONAL INFORMATION---- Estimated GFR calculated using the 2009 CKD_EPI creatinine equation. eGFR-Black/ 48 (L) >=60 mL/min/BSA 04/11/2018 9:39 [facility] Danish AM CDT [facility] - [facility] Comment: ----ADDITIONAL INFORMATION---- Estimated GFR calculated using the 2009 CKD_EPI creatinine equation. Specimen Anatomical Collection Method Collection Time Receive d Time (Source) Location / / Volume Laterality Blood (Blood, 04/11/2018 8:05 AM 04/11/20 8:26 Venous) CDT AM CDT Antelmo Reese M.D. LAB BLOOD ADD-ON Performing Organization Address [facility]/ZIP Code Phon e Number [facility] - [address] [place] [address] [facility] (ABNORMAL) Chloride (04/11/2018 8:05 AM CDT) P athologist Signature Chloride, S 97 (L) 98 - 107 04/11/2018 [facility] mmol/L 9:39 AM CDT [facility] - [facility] Specimen Anatomical Collection Method Collection Time Receive d Time (Source) Location / / Volume Laterality Blood (Blood, 04/11/2018 8:05 AM 04/11/20 8:26 Venous) CDT AM CDT Antelmo Reese M.D. LAB BLOOD ADD-ON Performing Organization Address City/[facility] Phon e Number [facility]IES - [address] [place] [address] [facility] (ABNORMAL) CBC without Differential (04/11/2018 8:05 AM CDT) Patholo gist Method Time Signature Hemoglobin 12.8 (L) 13.2 - 04/11/2018 [facility] 16.6 g/dL 8:45 AM CDT [facility] - [facility] Hematocrit 37.8 (L) 38.3 - 04/11/2018 [facility] 48.6 % 8:45 AM CDT [facility] - [facility] Erythrocytes 4.28 (L) 4.35 - 04/11/2018 [facility] 5.65 8:45 AM CDT LABORATORIES - x10(12)/L [facility] MCV 88.3 78.2 - 04/11/2018 [facility] 97.9 fL 8:45 AM CDT [facility] - [facility] RBC Distrib 13.0 11.8 - 04/11/2018 [facility] Width 14.5 % 8:45 AM CDT LABORATORIES [facility] Platelet Count 176 135 - 317 04/11/2018 [facility] x10(9)/L 8:45 AM CDT [facility] - [facility] Leukocytes 6.4 3.4 - 9.6 04/11/2018 [facility] x10(9)/L 8:45 AM CDT [facility] - [facility] Specimen Anatomical Collection Method Collection Time Receive d Time (Source) Location / / Volume Laterality Blood (Blood, 04/11/2018 8:05 AM 04/11/20 8:26 Venous) CDT AM CDT Antelmo Reese M.D. LAB BLOOD ADD-ON Performing Organization Address City/State/ZIP Code Phon e Number [facility]IES - [address] [place] [address] [facility] BUN (Blood Urea Nitrogen) (04/11/2018 8:05 AM CDT) P athologist Signature BUN (Blood 22 8 - 24 04/11/2018 [facility] Urea mg/dL 9:39 AM CDT LABORATORIES - Nitrogen), S [facility] Specimen Anatomical Collection Method Collection Time Receive d Time (Source) Location / / Volume Laterality Blood (Blood, 04/11/2018 8:05 AM 04/11/20 8:26 Venous) CDT AM CDT Antelmo Reese M.D. LAB BLOOD ADD-ON Performing Organization Address City/State/ZIP Code Phon e Number [facility] - [address] [place] [address] [facility] Bicarbonate (04/11/2018 8:05 AM CDT) P athologist Signature Bicarbonate, S - 04/11/2018 [facility] mmol/L 9:39 AM CDT [facility]ATOR[facility] - [facility] Specimen Anatomical Collection Method Collection Time Receive d Time (Source) Location / / Volume Laterality Blood (Blood, 04/11/2018 8:05 AM 04/11/20 8:26 Venous) CDT AM CDT Antelmo Reese M.D. LAB BLOOD ADD-ON Performing Organization Address City/State/ZIP Code Phon e Number [facility] - [address] documented in this encounter Visit Diagnoses Diagnosis Hyperlipidemia - Primary documented in this encounter
--- OUTSIDE RECORDS SUMMARY | 2022-06-04 18:13 | XMS_ITS | Encounter Summary ---
:1940 Author Organization [facility] Address [address] [place] [address] Care Team Providers Name Role Phone Unavailable Primary Care Provider Unavailable Encounter Details Date Type Department Care Team Description 02/26/2014 Hospital Encounter HX NO MAPPING Social History Tobacco Use Types Packs/Day Years [...] often do you attend oriental orthodox or orthodox Never 05/23/2022 services? Do you [...] Refills Start Date End Date acetaminophen (TYLENOL) 500 Take 1-2 tablets by 0 09/08/2013 mg tablet mouth 3 (three) times a day as needed. pain documented as of this encounter Plan of Treatment Not on filedocumented as of this encounter Visit Diagnoses Not on filedocumented in this encounter
--- OUTSIDE RECORDS SUMMARY | 2022-06-04 18:13 | XMS_ITS | Encounter Summary ---
:1940 Author Organization [facility] Address [address] [place] [address] Care Team Providers Name Role Phone Unavailable Primary Care Provider Unavailable Encounter Details Date Type Department Care Team Description 03/13/2018 Abstract DATA ABSTRACTION Provider, Historical Social History Tobacco Use Types Packs/Day Years [...] slept in a nursing home (including now)? Sex Assigned at Date Recorded Male 04/08/2018 12:55 PM CDT documented as of this encounter Plan of Treatment Not on filedocumented as of this encounter Visit Diagnoses Not on filedocumented in this encounter
--- OUTSIDE RECORDS SUMMARY | 2022-06-04 18:13 | XMS_ITS | Encounter Summary ---
:1940 Author Organization [facility] Address [address] [place] [address] Care Team Providers Name Role Phone Unavailable Primary Care Provider Unavailable Encounter Details Date Type Department Care Team Description 09/25/2013 Hospital Encounter HX NO MAPPING Social History [...] How often do you attend rastafarian or hinduism Never 05/23/2022 services? Do you [...] or slept in a prison (including now)? Sex Assigned at Date Recorded [...]
--- OUTSIDE RECORDS SUMMARY | 2022-06-04 18:13 | XMS_ITS | Encounter Summary ---
:1940 Author Organization [facility] Address [address] [place] [address] Care Team Providers Name Role Phone Unavailable Primary Care Provider Unavailable Encounter Details Date Type Department Care Team Description 04/11/2018 Ancillary Procedure Department of Gastroenterology Social History Tobacco Use Types Packs/Day Years [...] How often do you attend confucianist or sikhism Never 05/23/2022 services? Do you [...] Procedure Name Priority Date/Time Associated Comments Diagnosis GASTROENTEROLOGY IMAGE Routine 04/11/2018 2:10 Re sults for this EXAM PM CDT procedure are i n the results section. documented in this encounter Results GASTROENTEROLOGY IMAGE EXAM (04/11/2018 2:10 PM CDT) Specimen (Source) Anatomical Collection Method Collection Time Re ceived Time Location / / Volume Laterality 04/11/2018 2:07 PM CDT Narrative [facility] - 04/11/2018 3:33 PM CDT This order has been created [...]
--- OUTSIDE RECORDS SUMMARY | 2022-06-04 18:13 | XMS_ITS | Encounter Summary ---
:1940 Author Organization [facility] Address [address] [place] [address] Care Team Providers Name Role Phone Unavailable Primary Care Provider Unavailable Reason for Visit Reason Onset Date Comments Med Request 01/22/2018 Encounter Details Date Type Department Care Team Description 01/22/2018 Clinical Communication Division of Nephrology Ramon Ramirez Med Request and [place]pertension in [place], [place] [phone] [address] [facility] (Work) [place] [address] Social History Tobacco Use Types Packs/Day Years [...] How often do you attend druze or baptism Never 05/23/2022 services? Do you [...] or slept in a longterm (including now)? Sex Assigned at Date Recorded Male 04/08/2018 12:55 PM CDT documented as of this encounter Plan of Treatment Not on filedocumented as of this encounter Visit Diagnoses Not on filedocumented in this encounter
--- OUTSIDE RECORDS SUMMARY | 2022-06-04 18:13 | XMS_ITS | Encounter Summary ---
:1940 Author Organization [facility] Address [address] [place] [address] Care Team Providers Name Role Phone Unavailable Primary Care Provider Unavailable Encounter Details Date Type Department Care Team Description 03/03/2014 Historical Ophthalmology RST OPH Ric August O.D. [address] [place], [place] [phone] (Wo rk) Social History Tobacco Use Types [...] often do you attend oriental orthodox or hoahaoism Never 05/23/2022 services? Do you [...] encounter Progress Notes Ric August O.D. - 03/03/2014 2:24 PM CDT Eye General CHIEF COMPLAINT Healthy eye exam. HISTORY OF PRESENT ILLNESS Patient states he is here for the health of his eyes. Floaters both eyes;no change;no blurred vision;no eye pain or headaches. 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 Plan: Tears prn; spectacle prescriptions given. 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 CDM Reports - EYEGEN Id: [id number] Status: Fnl documented in this encounter Plan of Treatment Not on filedocumented as of this encounter Visit Diagnoses Not on filedocumented in this encounter
--- OUTSIDE RECORDS SUMMARY | 2022-06-04 18:13 | XMS_ITS | Encounter Summary ---
:1940 Author Organization [facility] Address [address] [place] [address] Care Team Providers Name Role Phone Unavailable Primary Care Provider Unavailable Encounter Details Date Type Department Care Team Description 11/02/2017 Orders Only Division of Nephrology and Ghulam Reese, Hypertension in [facility] [address] [facility] [address] [place] [phone] (Wo rk) Social History Tobacco Use Types [...] How often do you attend adventism or restorationism Never 05/23/2022 services? Do you [...]
--- OUTSIDE RECORDS SUMMARY | 2022-06-04 18:13 | XMS_ITS | Encounter Summary ---
:1940 Author Organization [facility] Address [address] [place] [address] Care Team Providers Name Role Phone Unavailable Primary Care Provider Unavailable Encounter Details Date Type Department Care Team Description 09/30/2014 Hospital Encounter HX NO MAPPING Social History [...] How often do you attend denominational or roman catholic Never 05/23/2022 services? Do [...] tablet by 0 09/24/19 15 mouth daily. documented as of this encounter Plan of Treatment Not on filedocumented as of this encounter Visit Diagnoses Not on filedocumented in this encounter
--- OUTSIDE RECORDS SUMMARY | 2022-06-04 18:13 | XMS_ITS | Encounter Summary ---
:1940 Author Organization [facility] Address [address] [place] [address] Care Team Providers Name Role Phone Unavailable Primary Care Provider Unavailable Encounter Details Date Type Department Care Team Description 09/24/2014 Hospital Encounter HX NO MAPPING Social History [...] How often do you attend adventism or adventist Never 05/23/2022 services? Do you [...]
--- OUTSIDE RECORDS SUMMARY | 2022-06-04 18:13 | XMS_ITS | Encounter Summary ---
:1940 Author Organization [facility] Address [address] [place] [address] Care Team Providers Name Role Phone Unavailable Primary Care Provider Unavailable Encounter Details Date Type Department Care Team Description 03/24/2016 Historical Ophthalmology RST O[facility] [place] Matilda Guo O.D. [address] [place], [place] [phone] (Wo rk) Social History Tobacco Use Types [...] How often do you attend latter-day or anabaptism Never 05/23/2022 services? Do you [...] as of this encounter Progress Notes Matilda Alanis O.D. - 03/24/2016 1:22 PM CDT Eye General CHIEF COMPLAINT Floaters, dry eyes HISTORY OF PRESENT ILLNESS Patient reports floaters; intermittent; ? both eyes; x several years; no change in severity. He describes ocular dryness; both eyes; intermittent; x past 6 years; worsening over time. Symptoms seem to be worse towards the end of the day - mild. Uses artificial tears as needed with good results. Since his cataract surgery he has noticed oncoming headlights are very bright. Feels his vision has been stable; both eyes. Wears glasses only for reading and computer work. 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 Plan: Rx #1 given. RTC 1 year or prn. 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 CD Reports - EYEGEN Id: [id number] Status: Fnl documented in this encounter Plan of Treatment Not on filedocumented as of this encounter Visit Diagnoses Not on filedocumented in this encounter
--- OUTSIDE RECORDS SUMMARY | 2022-06-04 18:13 | XMS_ITS | Encounter Summary ---
:1940 Author Organization [facility] Address [address] [place] [address] Care Team Providers Name Role Phone Unavailable Primary Care Provider Unavailable Encounter Details Date Type Department Care Team Description 09/20/2017 Hospital Encounter HX NO MAPPING Social History [...] How often do you attend confucianism or orthodoxy Never 05/23/2022 services? Do you [...] mouth 2 (two) times a day. losartan-hydroCHLOROthia Take 1 tablet by 0 02/1203/19/2018 zide (HYZAAR) 100-25 mg mouth every morning. per tablet nitroglycerin Place 1 tablet under 0 02/12/2017 0 03/07/2019 (NITROSTAT) 0.4 mg SL the tongue as needed. tablet Place 1 tab under the tongue at first sign of chest pain. If no relief in 5 min, call 911. Repeat dose every 5 min up to 2 additional doses if chest pain continues. rosuvastatin (CRESTOR) Take 1 tablet by 0 017 03/19/2018 10 mg tablet mouth every evening. tamsulosin (FLOMAX) 0.4 Take 1 capsule by 0 02/1204/12/2018 mg 24 hr capsule mouth daily. documented as of this encounter Plan of Treatment Not on filedocumented as of this encounter Visit Diagnoses Not on filedocumented in this encounter
--- OUTSIDE RECORDS SUMMARY | 2022-06-04 18:13 | XMS_ITS | Encounter Summary ---
:1940 Author Organization [facility] Address [address] [place] [address] Care Team Providers Name Role Phone Unavailable Primary Care Provider Unavailable Encounter Details Date Type Department Care Team Description 04/11/2018 Hospital Encounter Department of Antelmo Reese lipidemia Laboratory Medicine and R, [facility], [address] [address] [place] [address] [place], [place] (Work) [phone] Social History Tobacco Use Types Packs/Day Years [...] How often do you attend confucianist or judaism Never 05/23/2022 services? Do you [...] Diagnosis Comme nts LIPID PANEL, S Routine 04/11/2018 8:05 AM Hyperlipidemia Resul ts for this CDT procedure are i n the results section. CBC WITHOUT Routine 04/11/2018 8:05 AM Hyperlipidemia Results for this DIFFERENTIAL, B CDT procedure ar e in the results section. BUN (BLOOD UREA Routine 04/11/2018 8:05 AM Hyperlipidemia Resu lts for this NITROGEN), S/P CDT procedure are in the results section. SODIUM, S/P Routine 04/11/2018 8:05 AM Hyperlipidemia Results for this CDT procedure are i n the results section. POTASSIUM, S/P Routine 04/11/2018 8:05 AM Hyperlipidemia Resul ts for this CDT procedure are i n the results section. GLUCOSE, FASTING, Routine 04/11/2018 8:05 AM Hyperlipidemia Re sults for this S/P CDT procedure are i n the results section. CREATININE WITH Routine 04/11/2018 8:05 AM Hyperlipidemia Resu lts for this EGFR, S/P CDT procedure are i n the results section. CHLORIDE, S/P Routine 04/11/2018 8:05 AM Hyperlipidemia Result s for this CDT procedure are i n the results section. BICARBONATE, B/S/P Routine 04/11/2018 8:05 AM Hyperlipidemia R esults for this CDT procedure are i n the results section. documented in this encounter Results Sodium (04/11/2018 8:05 AM CDT) P athologist Signature Sodium, S 138 135 - 145 04/11/2018 [facility] mmol/L 9:39 AM CDT [facility] Specimen Anatomical Collection Method Collection Time Receive d Time (Source) Location / / Volume Laterality Blood (Blood, 04/11/2018 8:05 AM 04/11/20 8:26 Venous) CDT AM CDT Antelmo Reese M.D. LAB BLOOD ADD-ON Performing Organization Address City/[facility] Phon e Number [facility] - [address] [place] [address] 05 [facility] Potassium (04/11/2018 8:05 AM CDT) athologist Signature Potassium, S 4.2 3.6 - 5.2 04/11/2018 [facility] mmol/L 9:39 AM CDT [facility] Specimen Anatomical Collection Method Collection Time Receive d Time (Source) Location / / Volume Laterality Blood (Blood, 04/11/2018 8:05 AM 04/11/20 8:26 Venous) CDT AM CDT Antelmo Reese M.D. LAB BLOOD ADD-ON Performing Organization Address City/[facility] Phon e Number [facility] - [address] [place] [address] 05 [facility] Lipid Panel (04/11/2018 8:05 AM CDT) athologist Signature Cholesterol, 109 mg/dL 04/11/2018 [facility] Total 9:39 AM CDT [facility] Comment: ----REFERENCE VALUE---- Desirable: < 200 Borderline high: 200 - 239 High: > or = 240 Triglycerides 79 mg/dL 04/11/2018 9:39 AM CDT [facility] Comment: ----REFERENCE VALUE---- Normal: <150 Borderline high: 150-199 High: 200-499 Very high: > or =500 Cholesterol, HDL, S 56 >=40 mg/dL 04/11/2018 9:39 AM CDT [facility] Calculated LDL 37 mg/dL 04/11/2018 9:39 AM CDT [facility] Comment: ----REFERENCE VALUE---- Desirable: <100 Above Desirable: 100-129 Borderline high: 130-159 High: 160-189 Very high: > or =190 Cholesterol, Non-HDL, 53 mg/dL 04/11/2018 9:39 AM CDT [facility]IES Calculated - [facility] Comment: ----REFERENCE VALUE---- Desirable: <130 Above Desirable: 130-159 Borderline high: 160-189 High: 190-219 Very high: > or =220 Specimen Anatomical Collection Method Collection Time Receive d Time (Source) Location / / Volume Laterality Blood (Blood, 04/11/2018 8:05 AM 04/11/20 8:26 Venous) CDT AM CDT Antelmo Reese M.D. LAB BLOOD ADD-ON Performing Organization Address City/[facility] Code Phon e Number [facility] LAB[facility]ATORIES - [address] [place] [address] [facility] (ABNORMAL) Glucose, Fasting (04/11/2018 8:05 AM CDT) P athologist Signature Glucose, P 141 (H) 70 - 100 04/11/2018 [facility] mg/dL 9:14 AM CDT LABORATORIES - [facility] Last Intake 16 hr 04/11/2018 [facility] 8:26 AM CDT [facility] - [facility] Specimen Anatomical Collection Method Collection Time Receive d Time (Source) Location / / Volume Laterality Blood (Blood, 04/11/2018 8:05 AM 04/11/20 8:26 Venous) CDT AM CDT Antelmo Reese M.D. LAB BLOOD NON ADD-ON Performing Organization Address City/[facility] Code Phon e Number [facility]IES - [address] [place] [address] [facility] (ABNORMAL) Creatinine with Estimated GFR (04/11/2018 8:05 AM CDT) Patholo gist Method Time Signature Creatinine 1.56 (H) 0.74 - 04/11/2018 [facility] 1.35 9:39 AM CDT LABORATORIES - mg/dL [facility] eGFR-Non 42 (L) >=60 04/11/2018 [facility] Black/ mL/min/BS 9:39 AM CDT LABORATORIES - [place] [facility] Comment: ----ADDITIONAL INFORMATION---- Estimated GFR calculated using the 2009 CKD_EPI creatinine equation. eGFR-Black/ 48 (L) >=60 mL/min/BSA 04/11/2018 9:39 [facility] [place] AM CDT [facility]ATORIES - [facility] Comment: ----ADDITIONAL INFORMATION---- Estimated GFR calculated using the 2009 CKD_EPI creatinine equation. Specimen Anatomical Collection Method Collection Time Receive d Time (Source) Location / / Volume Laterality Blood (Blood, 04/11/2018 8:05 AM 04/11/20 8:26 Venous) CDT AM CDT Antelmo Reese M.D. LAB BLOOD ADD-ON Performing Organization Address City/[facility]/ZIP Code Phon e Number [facility] LAB[facility]ATORIES - [address] [place] [address] [facility] (ABNORMAL) Chloride (04/11/2018 8:05 AM CDT) P athologist Signature Chloride, S 97 (L) 98 - 107 04/11/2018 [facility] mmol/L 9:39 AM CDT LABORATORIES - [facility] Specimen Anatomical Collection Method Collection Time Receive d Time (Source) Location / / Volume Laterality Blood (Blood, 04/11/2018 8:05 AM 04/11/20 8:26 Venous) CDT AM CDT Antelmo Reese M.D. LAB BLOOD ADD-ON Performing Organization Address City/State/[facility] Code Phon e Number [facility]ATORIES - [address] [place] [address] [facility] (ABNORMAL) CBC without Differential (04/11/2018 8:05 AM CDT) Patholo gist Method Time Signature Hemoglobin 12.8 (L) 13.2 - 04/11/2018 [facility] 16.6 g/dL 8:45 AM CDT LABORATORIES - [facility] Hematocrit 37.8 (L) 38.3 - 04/11/2018 [facility] 48.6 % 8:45 AM CDT LABORATORIES - [facility] Erythrocytes 4.28 (L) 4.35 - 04/11/2018 [facility] 5.65 8:45 AM CDT LABORATORIES - x10(12)/L [facility] MCV 88.3 78.2 - 04/11/2018 [facility] 97.9 fL 8:45 AM CDT LABORATORIES [facility] RBC Distrib 13.0 11.8 - 04/11/2018 [facility] Width 14.5 % 8:45 AM CDT LABORATORIES - [facility] Platelet Count 176 135 - 317 04/11/2018 [facility] x10(9)/L 8:45 AM CDT LABORATORIES - [facility] Leukocytes 6.4 3.4 - 9.6 04/11/2018 [facility] x10(9)/L 8:45 AM CDT LABORATORIES - [facility] Specimen Anatomical Collection Method Collection Time Receive d Time (Source) Location / / Volume Laterality Blood (Blood, 04/11/2018 8:05 AM 04/11/20 8:26 Venous) CDT AM CDT Antelmo Reese M.D. LAB BLOOD ADD-ON Performing Organization Address City/[facility]/ZIP Code Phon e Number [facility] LAB[facility]IES - [address] [place] [address] 05 [facility] BUN (Blood Urea Nitrogen) (04/11/2018 8:05 AM CDT) athologist Signature BUN (Blood 22 8 - 24 04/11/2018 [facility] Urea mg/dL 9:39 AM CDT LABORATORIES - Nitrogen), S [facility] Specimen Anatomical Collection Method Collection Time Receive d Time (Source) Location / / Volume Laterality Blood (Blood, 04/11/2018 8:05 AM 04/11/20 8:26 Venous) CDT AM CDT Antelmo Reese M.D. LAB BLOOD ADD-ON Performing Organization Address City/State/ZIP Code Phon e Number [facility] LAB[facility]ATORIES - [address] [place] [address] 05 [facility] Bicarbonate (04/11/2018 8:05 AM CDT) P athologist Signature Bicarbonate, S 22 - 04/11/2018 [facility] mmol/L 9:39 AM CDT LABORATORIES - [facility] Specimen Anatomical Collection Method Collection Time Receive d Time (Source) Location / / Volume Laterality Blood (Blood, 04/11/2018 8:05 AM 04/11/20 8:26 Venous) CDT AM CDT Antelmo Reese M.D. LAB BLOOD ADD-ON Performing Organization Address City/State/ZIP Code Phon e Number [facility]ATORIES - [address] [place] [address] 05 [facility] documented in this encounter Visit Diagnoses Diagnosis Hyperlipidemia documented in this encounter
--- OUTSIDE RECORDS SUMMARY | 2022-06-04 18:13 | XMS_ITS | Encounter Summary ---
:1940 Author Organization [facility] Address [address] [place] [address] Care Team Providers Name Role Phone Unavailable Primary Care Provider Unavailable Reason for Visit Reason Onset Date Comments Mail 11/02/2017 Encounter Details Date Type Department Care Team Description 11/02/2017 Clinical Communication Division of Nephrology Antelmo Reese and Hypertension in [place], [place]. [place], [place] [address] [facility] [address] [place] [phone] Social History Tobacco Use Types Packs/Day Years [...] How often do you attend worship or baptist Never 05/23/2022 services? Do you [...] pay for the very basics like Not madina genny hard 05/23/2022 food, housing, medical care, [...]
--- OUTSIDE RECORDS SUMMARY | 2022-06-04 18:13 | XMS_ITS | Encounter Summary ---
:1940 Author Organization [facility] Address [address] [place] [address] Care Team Providers Name Role Phone Unavailable Primary Care Provider Unavailable Encounter Details Date Type Department Care Team Description 04/12/2018 Ancillary Procedure Department of Dermatology Social History [...] 05/23/2022 relatives? How often do you attend episcopalian or christianity Never 05/23/2022 services? Do you belong to any clubs or organizations such as No 05/23/2022 episcopalian groups, unions, fraternal or athletic groups, or [...] Date/Time Associated Comments Diagnosis DERMATOLOGY IMAGE Routine 04/12/2018 12:00 Result s for this EXAM PM CDT procedure are i n the results section. documented in this encounter Results DERMATOLOGY IMAGE EXAM (04/12/2018 12:00 PM CDT) Specimen (Source) Anatomical Collection Method Collection Time Re ceived Time Location / / Volume Laterality 04/12/2018 12:00 PM CDT Narrative [facility] - 04/12/2018 3:22 PM CDT This order has been created [...]
--- OUTSIDE RECORDS SUMMARY | 2022-06-04 18:13 | XMS_ITS | Encounter Summary ---
:1940 Author Organization [facility] Address [address] [place] [address] Care Team Providers Name Role Phone Unavailable Primary Care Provider Unavailable Reason for Referral Outpatient (Routine) - Closed Specialty Diagnoses / Procedures Referred By Contact Refer red To Contact Diagnoses Hyperlipidemia Antelmo Reese M.D. [facility] Procedures Colonoscopy [address] [place], [place] [address] Referral ID Status Reason Start Date Expiration Date Visits Requ ested Visits Authorized [id number] Closed 01/01/2018 01/01/2019 1 1 Reason for Visit Outpatient (Routine) - Closed Specialty Diagnoses / Procedures Referred By Contact Refer red To Contact Diagnoses Hyperlipidemia Antelmo Reese M.D. [facility] Procedures Colonoscopy [address] [place] [address] Referral ID Status Reason Start Date Expiration Date Visits Requ ested Visits Authorized [id number] Closed 01/01/2018 01/01/2019 1 1 Encounter Details Date Type Department Care Team Description 04/11/2018 Hospital Encounter Division of Henrietta Reese Gastroenterology in [place], [place] [address] [facility] [address] [place] [address] [phone] Social History Tobacco Use Types Packs/Day Years [...] How often do you attend taoist or anabaptist Never 05/23/2022 services? Do you belong to [...] slept in a senior living (including now)? Sex Assigned at Date Recorded Male 04/08/2018 12:55 PM CDT documented as of this encounter Last Filed Vital Signs Vital Sign Reading Time Taken Comments Blood Pressure 120/57 04/11/2018 3:45 PM CDT Pulse 55 04/11/2018 3:45 PM CDT Temperature 36.5 ??C (97.7 ??F) 04/11/2018 3:21 PM CDT Respiratory Rate 11 04/11/2018 3:45 PM CDT Oxygen Saturation 93% 04/11/2018 3:45 PM CDT Inhaled Oxygen Concentration - - Weight - - Height 180.3 cm (5' 11) 04/11/2018 1:20 PM CDT Body Mass Index - - documented in this encounter Medications at Time of Discharge [...] TAKE 1 TABLET EVERY 90 tablet 0 10/06/201704/12/2018 10 mg tabletIndications: EVENING Coronary Artery Disease [...] Name Priority Date/Time Associated Diagnosis Comme nts SURGICAL PATHOLOGY Routine 04/11/2018 3:13 PM Res ults for this CDT procedure are i n the results section. COLONOSCOPY Routine 04/11/2018 2:07 PM Hyperlipidemia Results for this CDT procedure are i n the results section. COLONOSCOPY Routine 04/11/2018 2:07 PM Hyperlipidemia CDT documented in this encounter Results Surgical Pathology (04/11/2018 3:13 PM CDT) Component Value Ref Test Analysis Performed At [facility] gist Range Method Time Signature Gross Description Received in formalin labeled with the patient's n beverly, 04/15/2018 [facility] medical record number, and [id number] 9:54 AM CDT LABORATORIES - are two pale montano-pink irregular soft tissue fragments, [facility] ranging from 1.0 x 0.6 x 0.1 cm and 0.4 x 0.4 x 0.1 cm. CAMPUS The longest specimen is bisected and submitted entirely with the remaining fragments in cassette A1. Grossed by AV. Report Jem Perez M.D. [phone] 04/15/2018 [facility] electronically I verify that I have examined all relevant slides/ma terials 9:54 AM CDT LABORATORIES - signed by for the specimen(s) and rendered or confirmed the diagnosi s. [facility] 04/15/2018 [facility] 9:54 AM CDT LABORATORIES - [facility] Interpretation FINAL DIAGNOSIS 04/15/2018 [facility] Colon, Descending, Rectosigmoid, Polyps, endoscopic 9:54 AM CDT LABORATORIES - biopsy: ??Tubular adenoma, low grade dysplasia. ??Separate [facility] fragment of serrated lesion with focal features suggestive CAMPUS of sessile serrated adenoma. ??Multiple levels examined. Specimen (Source) Anatomical Collection Method Collection Time Re ceived Time Location / / Volume Laterality Polyp (Colon) 04/11/2018 3:13 PM CDT Narrative This result has an attachment that is no t available. Eduar Martel M.D., Ph.D. LAB SURG PATH ORDERABLES Performing Organization Address City/State/ZIP Code Phon e Number [facility] LABORATORIES - [address] [facility] [place] [address] [facility] Colonoscopy (04/11/2018 2:07 PM CDT) Specimen (Source) Anatomical Collection Method Collection Time Re ceived Time Location / / Volume Laterality 04/11/2018 2:07 PM CDT Impressions [facility] - 04/11/2018 3:28 PM CDT Post-op Diagnoses: ? - Two 3 to 4 mm polyps at the rec to-sigmoid colon and in the descending ? colon, removed with a cold snare. Resected and retrieved. A couple of ? other tiny polyps (1-2 mm) were s een but not removed given difficult ? location and a significantly loop ed scope. ? - Diverticulosis in the sigmoid c olon. ? - Hemorrhoids found on perianal e xam. ? 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 Narrative [facility] - 04/11/2018 3:28 PM CDT [facility] GI Patient Name: Familia Merrill Date of : 1940 Age: 77 Gender: Male Procedure Date: 04/11/2018 Procedure: ? Colonosc opy Providers: ? Eduar horton MD, Alice Ardon MD Referring Provider: ?Antelmo rutherford Pre-op Diagnoses: ?High risk c olon cancer surveillance: Personal ? his tory of colonic polyps Recommendation: ? - Repeat colonoscopy is not recom mended. This was an extremely difficult ? colonoscopy which high risk. Sign ificant looping occured and the patient ? had to be moved several times, in cluding ;left right and supine ? positions. I doubt that a repeat colonoscopy in 3-5 years has a ? risk/benefit ratio favorable to t his patient, and doubt that any ? significant polyps/cancers would grow given only a few tiny polyps seen ? today. Findings: ? Two sessile polyps were found in the recto-sigmoid colon and descending ? colon. The polyps were 3 to 4 mm in size. These polyps were removed with ? a cold snare. Resection and retri eval were complete. ? Diverticula were found in the sig moid colon. ? Hemorrhoids were found on periana l exam. ? There was a medium-sized lipoma, at the ileocecal valve. Procedural Details: ? The patient was seen, evaluated, history reviewed, airway and heart-lung ? exams were performed by licensed provider and were satisfactory for ? planned level of sedation care. ? The risks, benefits and alternati ves for the procedure and sedation were ? discussed and informed consent wa s obtained. A procedural pause was ? conducted in the presence of assi sting personnel to verify the correct ? patient identity and procedure to be performed. Throughout the ? procedure, the patient's blood pr essure, pulse, and oxygen saturations ? were monitored continuously. The Colonoscope was introduced under direct ? vision through the anus and advan katiuska to the cecum, identified by ? appendiceal orifice and ileocecal valve. The Pediatric Colonoscope was ? introduced under direct vision th rough the anus and advanced to the ? cecum, identified by appendiceal orifice and ileocecal valve. The ? patient tolerated the procedure w ell. The quality of the bowel ? preparation was adequate to ident sharmila polyps. The colonoscopy was ? technically difficult and complex due to a redundant colon. Successful ? completion of the procedure was a ided by performing the maneuvers ? documented (below) in this report . The patient tolerated the procedure ? fairly well. Complications: ? No immedia te complications. Sedation: ? Moderate (conscious) sedation was administered by the endoscopy nurse ? and supervised by the endoscopist . The following parameters were ? monitored: oxygen saturation, hea rt rate, blood pressure, and response ? to care. Total physician intraser vice time was 57 minutes. Attending Participation: I personally pe rformed the entire procedure. Eduar Martel MD 04/11/2018 3:28:40 PM This report has been signed electronical ly. Alice Ardon MD Number of Addenda: 0 Antelmo Reese M.D. GI PROCEDURE ORDERABLES Performing Organization Address City/State/ZIP Code Phon e Number [facility] documented in this encounter Visit Diagnoses Diagnosis Hyperlipidemia documented in this encounter Administered Medications Inactive Administered Medications - up to 3 most recent administrations Medication Order MAR Action Action Date Dose Rate Site fentaNYL injection (SUBLIMAZE) Given 04/11/2018 2:23 PM CDT 25 mcg intravenous, Code/trauma/sedation medication, Starting on Taniya 04/11/18 at 1423 fentaNYL injection (SUBLIMAZE) Given 04/11/2018 2:25 PM CDT 25 mcg intravenous, Code/trauma/sedation medication, Starting on Taniya 04/11/18 at 1425 fentaNYL injection (SUBLIMAZE) Given 04/11/2018 2:27 PM CDT 25 mcg intravenous, Code/trauma/sedation medication, Starting on Taniya 04/11/18 at 1427 fentaNYL injection (SUBLIMAZE) Given 04/11/2018 2:42 PM CDT 25 mcg intravenous, Code/trauma/sedation medication, Starting on Taniya 04/11/18 at 1442 fentaNYL injection (SUBLIMAZE) Given 04/11/2018 2:57 PM CDT 25 mcg intravenous, Code/trauma/sedation medication, Starting on Taniya 04/11/18 at 1457 lactated ringers New Bag 04/11/2018 2:17 PM CDT 20 mL/hr 20 mL/hr intravenous, Code/trauma/sedation continuous med, Starting on Taniya 04/11/18 at 1417 midazolam (PF) injection (VERSED) Given 04/11/2018 2:25 PM CDT 1 mg Code/trauma/sedation medication, Starting on Taniya 04/11/18 at 1423 Given 04/11/2018 2:23 PM CDT 2 mg midazolam (PF) injection (VERSED) Given 04/11/2018 2:27 PM CDT 1 mg Code/trauma/sedation medication, Starting on Taniya 04/11/18 at 1427 midazolam (PF) injection (VERSED) Given 04/11/2018 2:42 PM CDT 1 mg Code/trauma/sedation medication, Starting on Taniya 04/11/18 at 1442 midazolam (PF) injection (VERSED) Given 04/11/2018 2:57 PM CDT 1 mg Code/trauma/sedation medication, Starting on Taniya 04/11/18 at 1457 midazolam (PF) injection (VERSED) Given 04/11/2018 3:08 PM CDT 1 mg Code/trauma/sedation medication, Starting on Taniya 04/11/18 at 1508 documented in this encounter
--- OUTSIDE RECORDS SUMMARY | 2022-06-04 18:13 | XMS_ITS | Encounter Summary ---
:1940 Author Organization [facility] Address [address] [place] [address] Care Team Providers Name Role Phone Unavailable Primary Care Provider Unavailable Reason for Visit Reason Comments Med Refill Encounter Details Date Type Department Care Team Description 03/19/2018 Refill Division of Nephrology and Antelmo White M.D. Med Refill Hypertension in [place] [address] [address] [place] [address] [place] [address] [place], [place] [phone] [phone] Social History Tobacco Use Types Packs/Day Years [...] How often do you attend quaker or orthodoxy Never 05/23/2022 services? Do you [...] this encounter Miscellaneous Notes Telephone Encounter - Savannah Marcial R.N. - 03/19/2018 2:52 PM CDT Prescription forwarded to provider for approval. Outside RN protocol due to historical entry. documented in this encounter Plan of Treatment Not on filedocumented as of this encounter Visit Diagnoses Diagnosis Coronary Artery Disease (Unspecified) - Primary Hypertension Personal History documented in this encounter
--- OUTSIDE RECORDS SUMMARY | 2022-06-04 18:13 | XMS_ITS | Encounter Summary ---
:1940 Author Organization [facility] Address [address] [place] [address] Care Team Providers Name Role Phone Unavailable Primary Care Provider Unavailable Encounter Details Date Type Department Care Team Description 11/07/2013 Hospital Encounter HX NO MAPPING Social History [...] How often do you attend denominational or amish Never 05/23/2022 services? Do you [...]
--- OUTSIDE RECORDS SUMMARY | 2022-06-04 18:13 | XMS_ITS | Encounter Summary ---
:1940 Author Organization [facility] Address [address] [place] [address] Care Team Providers Name Role Phone Unavailable Primary Care Provider Unavailable Encounter Details Date Type Department Care Team Description 12/18/2017 Clinical Communication Division of Nephrology Antelmo Reese and Hypertension in [place], [place] [address] [facility] [address] [place] [phone] Social History Tobacco Use Types Packs/Day Years [...] How often do you attend muslim or scientology Never 05/23/2022 services? Do you [...] slept in a care home (including now)? Sex Assigned at Date Recorded Male 04/08/2018 12:55 PM CDT documented as of this encounter Miscellaneous Notes Telephone Encounter - Antelmo Reese M.D. - 12/19/2017 10:41 AM CDT Fl, March is fine, thanks Telephone Encounter - Adalgisa Guillen - 12/19/2017 8:53 AM CDT Please advise on a date/time that you can see this pt or can he wait until Mar.? Thank you Telephone Encounter - Antelmo Reese M.D. - 12/18/2017 8:40 AM CDT Fl, I am happy to see him, thanks. documented in this encounter Plan of Treatment Not on filedocumented as of this encounter Visit Diagnoses Not on filedocumented in this encounter
--- OUTSIDE RECORDS SUMMARY | 2022-06-04 18:13 | XMS_ITS | Encounter Summary ---
:1940 Author Organization [facility] Address [address] [place] [address] Care Team Providers Name Role Phone Unavailable Primary Care Provider Unavailable Reason for Visit Outpatient (Routine) - Closed Specialty Diagnoses / Procedures Referred By Contact Refer red To Contact Dermatology Diagnoses Hyperlipidemia Antelmo Reese M.D. [place] [address] [place] [phone] Referral ID Status Reason Start Date Expiration Date Visits V isits Requested Authorized [id number] Closed Specialty 01/01/2018 01/01/2019 1 1 Services Required Encounter Details Date Type Department Care Team Description 04/12/2018 Comprehensive Visit Department of Laverne Castillo Uncertain Behavior (Primary Dx); Dermatology in Oziel Santos M.D. Hyperlipide natasha; [place], [place] Nevi Multiple; [address] [place] [address] Keratosis Seborrheic; [place], [place]; [phone] Keratosis Actinic [phone] Social History Tobacco Use Types Packs/Day Years [...] How often do you attend sabianism or roman catholic Never 05/23/2022 services? Do [...] documented as of this encounter Consult Notes Oziel Castillo M.D. - 04/12/2018 1:20 PM CDT CHIEF COMPLAINT / REASON FOR VISIT Skin cancer screening examination Correspondence to Dr. Castillo, patient evaluated in conjunction with Dr. Whitman HISTORY OF PRESENT ILLNESS Mr. Familia Merrill is a 77 y.o. male who presents today for a skin cancer screening examination. Mr. Familia Merrill has no prior history of skin cancer but notes a family history of nonmelanoma skin cancer in his sister. He denies a family history of melanoma. The patient denies any painful, itching, changing or bleeding lesions. During the exam several areas were noted that appeared consistent with neurofibromas. He denies any history of seizures, family history of inherited disorders such as neurofibromatosis for tuberous sclerosis. There were no vitals taken for this visit. Allergies Allergen Reactions ??? Hydrocodone-Acetaminophen GI intolerance vomiting REVIEW OF SYSTEMS No other cutaneous complaints. [...] genitalia per patient request. There are multiple stuck on waxy appearing papules and plaques consistent with seborrheic keratoses. There are scattered hyperpigmented macules consistent with banal appearing nevi. On the back there are 3 large pedunculated soft compressible flesh-colored papules consistent with most likely neurofibromas.There are soft compressible flesh- colored papules, 2 along the jawline and 1 in the left eyebrow. There are scattered lentigines. There are multiple erythematous gritty macules over the face consistentwith actinic keratoses. On the right upper abdomen there is a hyperpigmented the slightly shiny plaque with an atypical pigment network on dermoscopy. On the right frontal scalp/forehead as well as on the right forearm there are subcutaneous nodules that feel most consistent with lipomas. ASSESSMENT / PLAN #1 Skin tumor of uncertain behavior, right upper abdomen Differential dx: Atypical nevus, rule out melanoma versus seborrheic keratosis Photographs obtained. Shave biopsy performed. CONSENT Discussed [...] a shave biopsy was obtained from the right upper abdomen. Biopsy submitted to Dermatopathology for H&E. Special stains will be performed as indicated. The bleeding was well controlled with application of aluminum chloride. Dressing was applied, and wound care instructions were explained. Biopsy results and any further recommendations will be communicated to the patient by letter. Patient given pamphlet [id number]. #2 Skin cancer screening examination #3 Dermatoheliosis Sun protection and sun avoidance were reviewed with the patient. Educational materials were providedregarding skin self-examination, the warning signs and symptoms of skin cancer, and the proper use of sunscreens. I would recommend a full skin cancer screening examination with an appropriately trained clinician every year. #4 Banal-appearing nevi The ABCDE criteria for melanoma was reviewed with the patient. None of the patient's nevi reach the clinical threshold for biopsy. I recommend continued sun protection, self-skin examinations, and observation. Should any of the patient's nevi change in size, color, texture, or shape or develop symptoms such as itching or bleeding, I recommend an immediate return visit for reassessment. #5 Actinic keratoses times 14 Given the precancerous nature of this lesion(s), treatment is medically indicated. After discussion of the risks, benefits and alternatives to treatment with cryotherapy, informed consent was obtained.We treated a total of 14 lesion(s) with two 20-second freeze-thaw cycles of [...] keratoses The benign nature of the skin lesio n(s) was discussed with the patient. No treatment is required. Irecommend continued observation. Should symptoms or changes develop related to this condition, I would recommend a return visit for reassessment. #7 Multiple neurofibromas The patient did not have axillary freckling. He had a few neurofibromas but does not appear to meet criteria at this time for neurofibromatosis. We will continue to observe. All questions answered. INFORMED CONSENT Discussed the risks, benefits, alternatives, and the necessity of other members of the healthcare team participating in the procedure. All questions answered and consent given. PATIENT EDUCATION Ready to learn. No apparent learning barriers were identified. Learning preferences include listening. Explained diagnosis and treatment plan; patient/guardian of patient expressed understanding of thecontent. Associated attestation - Teresita Whitman M.D. - 04/15/2018 9:21 AM CDT I have seen and evaluated the patient with Dr. Oziel Castillo, participating in the albarado portions of the service. I was immediately available for the entirety of the procedure(s) and present for the albarado and critical portions. I reviewed the resident's note, and I agree with the findings and plan of care as documented. documented in this encounter Plan of Treatment Not on filedocumented as of this encounter Procedures Procedure Name Priority Date/Time Associated Diagnosis Comme nts DERMATOPATHOLOGY Routine 04/12/2018 1:47 PM Hyperlipidemia Res ults for this CDT procedure are i n the results section. documented in this encounter Results Dermatopathology (04/12/2018 1:47 PM CDT) Component Value Ref Test Analysis Performed At [facility] gist Range Method Time Signature Gross Received in formalin labeled with the patient's name, 04/19/2018 [facility] Description medical record number, and right upper abdomen is a 1.0 x 3:58 PM LABORATORIES - 0.7 x 0.1 cm pale montano skin shave biopsy. ??Centrally locat ed [facility] on the skin surface is a 0.4 x 0.3 cm brown, slightly CAMPUS raised lesion with irregular borders. ??The specimen is bisected and submitted entirely in cassette A1. ??Grossed by PETAR. Report Lucille Olson, 04/19/2018 [facility] electronically M.D. 3:58 PM LABORATORIES - signed by [facility] 04/19/2018 [facility] 3:58 PM LABORATORIES - [facility] Disclaimer This test was developed and its performance characteri stics 04/19/2018 [facility] determined by [facility] in a manner consistent with CLIA 3:58 PM LABORATORIES - requirements. This test has not been cleared or approved b y [facility] the U.S. Food and Drug Administration. CAMPUS Interpretation FINAL DIAGNOSIS 04/19/2018 [facility] ??Right upper abdomen, Skin shave biopsy: ??Compound ne vus 3:58 PM LABORATORIES - with severe atypia, extending to within 1.8 mm of the [facility] nearest lateral border CAMPUS COMMENT Multiple tissue levels examined. ??Melan A stain highlights the atypical melanocytic proliferation. ??Clinical photo reviewed. Specimen (Source) Anatomical Collection Method Collection Time Re ceived Time Location / / Volume Laterality Skin (Right upper 04/12/2018 1:47 PM abdomen) CDT Narrative This result has an attachment that is no t available. Oziel Castillo M.D. LAB PATH DERM ORDERABLES Performing Organization Address City/State/ZIP Code Phon e Number [facility] LABORATORIES - [address] [place], [place] [address] [facility] documented in this encounter Visit Diagnoses Diagnosis Tumor Skin Uncertain Behavior - Primary Hyperlipidemia Nevi Multiple Keratosis Seborrheic [place] Keratosis Actinic documented in this encounter
--- OUTSIDE RECORDS SUMMARY | 2022-06-04 18:13 | XMS_ITS | Encounter Summary ---
:1940 Author Organization [facility] Address [address] [place] [address] Care Team Providers Name Role Phone Unavailable Primary Care Provider Unavailable Encounter Details Date Type Department Care Team Description 09/04/2014 Hospital Encounter HX NO MAPPING Social History [...] How often do you attend mandaeism or jainism Never 05/23/2022 services? Do you [...]
--- OUTSIDE RECORDS SUMMARY | 2022-06-04 18:14 | XMS_ITS | Encounter Summary ---
:1940 Author Organization [facility] Address [address] [place] [address] Care Team Providers Name Role Phone Unavailable Primary Care Provider Unavailable Encounter Details Date Type Department Care Team Description 02/21/2010 Historical Ophthalmology RST OPH Kayden Valdes M.D. [address] [place], [place] [phone] (Wo rk) Social History [...] How often do you attend confucianist or islam Never 05/23/2022 services? Do you [...] documented as of this encounter Progress Notes Avelino Valdes M.D. - 02/21/2010 7:34 AM CDT Eye General CHIEF COMPLAINT Cataract HISTORY OF PRESENT ILLNESS Decreased vision; both eyes; x 1 year; no eye pain; difficulty with sun, headlights; difficulty withfinding golf ball. 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 RBA LEFT cataract surgery disucssed, pt wishes to proceed. 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
--- OUTSIDE RECORDS SUMMARY | 2022-06-04 18:14 | XMS_ITS | Encounter Summary ---
:1940 Author Organization [facility] Address [address] [place] [address] Care Team Providers Name Role Phone Unavailable Primary Care Provider Unavailable Encounter Details Date Type Department Care Team Description 03/15/2011 Historical Ophthalmology RST OPH Kayden Valdes M.D. [address] [place], [place] [phone] (Wo rk) Social History [...] How often do you attend religious or hindu Never 05/23/2022 services? Do you [...] encounter Progress Notes Avelino Valdes M.D. - 03/15/2011 10:13 AM CDT Eye General CHIEF COMPLAINT 1 year f/u history of occipital cva with homonymous cva; cataract right eye HISTORY OF PRESENT ILLNESS Increased glare; both eyes; with head lights at night; x 1 year. History of floaters; both eyes; I think there is more this past year. Denies light flashes. 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 RBA RIGHT cataract surgery sally olvera pt wishes to proceed. iols done, target plano. 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
--- OUTSIDE RECORDS SUMMARY | 2022-06-04 18:14 | XMS_ITS | Encounter Summary ---
:1940 Author Organization [facility] Address [address] [place] [address] Care Team Providers Name Role Phone Unavailable Primary Care Provider Unavailable Encounter Details Date Type Department Care Team Description 03/31/2011 Hospital Encounter HX NO MAPPING Social History [...] How often do you attend anglican or restorationist Never 05/23/2022 services? Do you [...]
--- OUTSIDE RECORDS SUMMARY | 2022-06-04 18:14 | XMS_ITS | Encounter Summary ---
:1940 Author Organization [facility] Address [address] [place] [address] Care Team Providers Name Role Phone Unavailable Primary Care Provider Unavailable Encounter Details Date Type Department Care Team Description 03/21/2012 Historical Ophthalmology RST OPH Maurice Cottrell M.D. [address] [place] [phone] (Wo rk) Social History Tobacco Use Types [...] 05/23/2022 relatives? How often do you attend jain or caodaism Never 05/23/2022 services? Do you belong to any clubs or organizations such as No 05/23/2022 jain groups, unions, fraternal or athletic groups, or [...] documented as of this encounter Progress Notes Maurice Cottrell M.D. - 03/21/2012 10:10 AM CDT Eye General CHIEF COMPLAINT watery/itchy eyes HISTORY OF PRESENT ILLNESS Watering and itching; both eyes ; x several months; intermittently; symptoms are moderate; worse in evenings. Denies difficulty reading or driving, but wishes to have separate distance and near glasses (dislikes any style of bifocal). Occasional floaters with rare flashes, both eyes. 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 Plan: Tears prn; spectacle prescriptions given. 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 [facility] Reports - EYEGEN Id: [id number] Status: Fnl documented in this encounter Plan of Treatment Not on filedocumented as of this encounter Visit Diagnoses Not on filedocumented in this encounter
--- OUTSIDE RECORDS SUMMARY | 2022-06-04 18:14 | XMS_ITS | Encounter Summary ---
:1940 Author Organization [facility] Address [address] [place] [address] Care Team Providers Name Role Phone Unavailable Primary Care Provider Unavailable Encounter Details Date Type Department Care Team Description 04/20/2010 Historical Ophthalmology RST OPH Kayden Valdes M.D. [address] [place], [place] [phone] (Wo rk) Social History [...] 05/23/2022 relatives? How often do you attend buddhist or shinto Never 05/23/2022 services? Do you belong to any clubs or organizations such as No 05/23/2022 buddhist groups, unions, fraternal or athletic groups, or [...] encounter Progress Notes Avelino Valdes M.D. - 04/20/2010 9:16 AM CDT Eye Postoperative MULTI-VISIT DOCUMENT This document contains multiple patient visits and is available for review in Document Viewer. CDM Reports - EYEPO Id: [id number] Status: Fnl documented in this encounter Plan of Treatment Not on filedocumented as of this encounter Visit Diagnoses Not on filedocumented in this encounter
--- OUTSIDE RECORDS SUMMARY | 2022-06-04 18:14 | XMS_ITS | Encounter Summary ---
:1940 Author Organization [facility] Address [address] [place] [address] Care Team Providers Name Role Phone Unavailable Primary Care Provider Unavailable Encounter Details Date Type Department Care Team Description 03/25/2010 Hospital Encounter HX NO MAPPING Social History [...] How often do you attend judaism or evangelical Never 05/23/2022 services? Do you [...]
--- OUTSIDE RECORDS SUMMARY | 2022-06-04 18:14 | XMS_ITS | Encounter Summary ---
:1940 Author Organization [facility] Address [address] [place] [address] Care Team Providers Name Role Phone Unavailable Primary Care Provider Unavailable Encounter Details Date Type Department Care Team Description 05/05/2011 Historical Ophthalmology RST OPH Kayden Valdes M.D. [address] [place], [place] [phone] (Wo rk) Social History [...] How often do you attend taoism or druze Never 05/23/2022 services? Do you [...] encounter Progress Notes Avelino Valdes M.D. - 05/05/2011 2:12 PM CST Eye Postoperative MULTI-VISIT DOCUMENT This document contains multiple patient visits and is available for review in Document Viewer. CDM Reports - EYEPO Id: [id number] Status: Fnl documented in this encounter Plan of Treatment Not on filedocumented as of this encounter Visit Diagnoses Not on filedocumented in this encounter
--- OUTSIDE RECORDS SUMMARY | 2022-06-04 18:14 | XMS_ITS | Encounter Summary ---
:1940 Author Organization [facility] Address [address] [place] [address] Care Team Providers Name Role Phone Unavailable Primary Care Provider Unavailable Encounter Details Date Type Department Care Team Description 04/16/2008 Hospital Encounter HX NO MAPPING Social History [...] How often do you attend congregation or methodist Never 05/23/2022 services? Do you [...]
--- OUTSIDE RECORDS SUMMARY | 2022-06-04 18:14 | XMS_ITS | Encounter Summary ---
:1940 Author Organization [facility] Address [address] [place] [address] Care Team Providers Name Role Phone Unavailable Primary Care Provider Unavailable Encounter Details Date Type Department Care Team Description 03/17/2011 Hospital Encounter HX NO MAPPING Social History [...] How often do you attend quaker or shinto Never 05/23/2022 services? Do you [...]
--- OUTSIDE RECORDS SUMMARY | 2022-06-04 18:14 | XMS_ITS | Encounter Summary ---
:1940 Author Organization [facility] Address [address] [place] [address] Care Team Providers Name Role Phone Unavailable Primary Care Provider Unavailable Encounter Details Date Type Department Care Team Description 05/28/2007 Historical Ophthalmology RST OPH Geeta Del Rosario M. D. Social History Tobacco Use Types Packs/Day Years [...] How often do you attend congregation or adventism Never 05/23/2022 services? Do you [...] documented as of this encounter Progress Notes Geeta Del Rosario M.D. - 05/28/2007 8:22 AM CST Eye General CHIEF COMPLAINT decrease in near vision HISTORY OF PRESENT ILLNESS Gradual decrease in near vision over the past year. Patient states, I think my vision could be crisper. Patient has bifocals but doesn't like wearing them because he has a hard time getting his head in the proper spot. Patient also has prescription reading glasses. Intermittent rare floaters both eyes x a few years. History of stroke x 4 years ago and he has lost peripheral vision on his right side. Patient denies flashes of light and ocular pain both eyes. 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 Automated visual field completed. IMPRESSION / REPORT / PLAN #1 History of occipital stroke 2003 associated with hemianopia DEC07 HARMONY 30-2: right relatively homonymous hemianopia (left eye generalized peripheral depression associated with high false negative rate, artifact of testing) Suggest yearly evaluation #2 Bilateral cataracts, not affecting visual function Discussed, observe #3 Manifest hyperopia, hyperopic shift Given prescription for glasses #4 Presbyopia DIAGNOSIS #1 History of occipital stroke 2003 associated with hemianopia #2 Bilateral cataracts, not affecting visual function #3 Manifest hyperopia, hyperopic shift #4 Presbyopia CDM Reports - EYEGEN Id: [id number] Status: Fnl documented in this encounter Plan of Treatment Not on filedocumented as of this encounter Visit Diagnoses Not on filedocumented in this encounter
--- OUTSIDE RECORDS SUMMARY | 2022-06-04 18:14 | XMS_ITS | Encounter Summary ---
:1940 Author Organization [facility] Address [address] [place] [address] Care Team Providers Name Role Phone Unavailable Primary Care Provider Unavailable Encounter Details Date Type Department Care Team Description 05/29/2007 Hospital Encounter HX NO MAPPING Social History [...] 05/23/2022 relatives? How often do you attend catholic or cheondoism Never 05/23/2022 services? Do you belong to any clubs or organizations such as No 05/23/2022 catholic groups, unions, fraternal or athletic groups, [...]
--- OUTSIDE RECORDS SUMMARY | 2022-06-04 18:14 | XMS_ITS | Encounter Summary ---
:1940 Author Organization [facility] Address [address] [place] [address] Care Team Providers Name Role Phone Unavailable Primary Care Provider Unavailable Encounter Details Date Type Department Care Team Description 02/21/2010 Historical Ophthalmology RST OPH Lisa Libby A [address] [place], [place] [phone] Social History Tobacco Use Types Packs/Day Years [...] How often do you attend religion or adventism Never 05/23/2022 services? Do you [...] documented as of this encounter Progress Notes Libby Gonzalez - 02/21/2010 8:04 AM CDT Eye Subsequent Visit HISTORY OF PRESENT ILLNESS Electronic Listing Cataract surgery CDM Reports - EYESV Id: [id number] Status: Fnl documented in this encounter Plan of Treatment Not on filedocumented as of this encounter Visit Diagnoses Not on filedocumented in this encounter
--- OUTSIDE RECORDS SUMMARY | 2022-06-04 18:14 | XMS_ITS | Encounter Summary ---
:1940 Author Organization [facility] Address [address] [place] [address] Care Team Providers Name Role Phone Unavailable Primary Care Provider Unavailable Encounter Details Date Type Department Care Team Description 03/02/2009 Historical Ophthalmology RST OPH Nestor Joyce M.D. Social History Tobacco Use Types Packs/Day Years [...] How often do you attend buddhism or spiritism Never 05/23/2022 services? Do you belong to [...] or slept in a detention (including now)? Sex Assigned at Date Recorded Male 04/08/2018 12:55 PM CDT documented as of this encounter Progress Notes Nestor Joyce M.D. - 03/02/2009 9:39 AM CDT Eye General CHIEF COMPLAINT Blurred vision; Am I candidate for surgery where I don't have to wear glasses HISTORY OF PRESENT ILLNESS The patient describes blurred vision in both eyes and occurs in the distance. States my can read road signs before I can. Computer is a little harder to as he wears bifocal lens. Current glassesprescription about two years old. Patient wants to know if he would be a candidate for eye surgery where I don't have to wear glasses. The patient describes floaters in both eyes which is occasional;no recent change. IMPRESSION / REPORT / PLAN Management requested by: Antelmo Reese [phone] #1 Early posteriorl subcapsular cataracts #2 Hyperopia, presbyopia Prescription for correction as above, patient?s option to fill. He is not good candidate for laser; cataracts not bad enough yet; see 1 yr DIAGNOSIS #1 Early posteriorl subcapsular cataracts #2 Hyperopia, presbyopia CDM Reports - EYEGEN Id: [id number] Status: Fnl documented in this encounter Plan of Treatment Not on filedocumented as of this encounter Visit Diagnoses Not on filedocumented in this encounter
--- OUTSIDE RECORDS SUMMARY | 2022-06-04 18:14 | XMS_ITS | Encounter Summary ---
:1940 Author Organization [facility] Address [address] [place] [address] Care Team Providers Name Role Phone Unavailable Primary Care Provider Unavailable Encounter Details Date Type Department Care Team Description 08/29/2013 Hospital Encounter HX NO MAPPING Social History [...] 05/23/2022 relatives? How often do you attend anabaptist or hinduism Never 05/23/2022 services? Do you belong to any clubs or organizations such as No 05/23/2022 anabaptist groups, unions, fraternal or athletic groups, or [...]
--- OUTSIDE RECORDS SUMMARY | 2022-06-04 18:14 | XMS_ITS | Encounter Summary ---
:1940 Author Organization [facility] Address [address] [place] [address] Care Team Providers Name Role Phone Unavailable Primary Care Provider Unavailable Encounter Details Date Type Department Care Team Description 09/24/2003 Hospital Encounter HX NO MAPPING Social History [...] How often do you attend christian or latter-day Never 05/23/2022 services? Do you belong to [...] Date/Time Associated Diagnosis Comme nts DERMATOPATHOLOGY Routine 09/24/2003 10:49 AM Resu lts for this JTAC procedure are i n the results section. DERMATOPATHOLOGY Routine 09/24/2003 10:48 AM Resu lts for this JTAC procedure are i n the results section. documented in this encounter Results Dermatopathology (09/24/2003 10:49 AM JTAC) Specimen Anatomical Collection Method Collection Time Receive d Time (Source) Location / / Volume Laterality 09/24/2003 10:49 09/24/2003 AM JTAC 10:49 AM JTAC Narrative [facility] - 09/24/2003 10:49 AM JTAC ??09/24/2003 Dermatopathology Report ([id number]) ? Requested By: Jem Vieyra M.D. ??[id number] ?DIAGNOSIS: ?? A. ??Right upper back, Skin shave biops y: ??Dermal nevus with congenital features ? 09/25/03 ??Angela Calderon M.D. [phone] ?? SPECIMEN DESCRIPTION: ?? A: Right upper back, Skin shave biopsy ?? TISSUE DESCRIPTION: [id number] ??A1 ? Procedure Note 09/15/2017 09/24/2003 Dermatopathology Report ([id number]) Requested By: Jem Vieyra M.D. [phone] DIAGNOSIS: A. Right upper back, Skin shave biopsy: Dermal nevus with congenital features 09/25/03 Angela Calderon M.D. [phone] SPECIMEN DESCRIPTION: A: Right upper back, Skin shave biopsy TISSUE DESCRIPTION: [id number] A1 Historical Provider LAB PATH DERM ORDERABLES Performing Organization Address City/State/ZIP Code Phon e Number [facility] - [address] [place], [place] [address] [facility] Dermatopathology (09/24/2003 10:48 AM JTAC) Specimen Anatomical Collection Method Collection Time Receive d Time (Source) Location / / Volume Laterality 09/24/2003 10:48 09/24/2003 AM JTAC 10:48 AM JTAC Narrative [facility] - 09/24/2003 10:48 AM JTAC ??09/24/2003 Dermatopathology Report ([id number]) ? Requested By: Jem Vieyra M.D. ??[id number] ?DIAGNOSIS: ?? A. ??Right upper forehead, Skin shave b iopsy: ??Dermal nevus ? 09/25/03 ??Angela Calderon M.D. 5-3 [phone] ?? SPECIMEN DESCRIPTION: ?? A: Right upper forehead, Skin shave bio psy ?? TISSUE DESCRIPTION: [id number] ??A1 ? Procedure Note 09/15/2017 09/24/2003 Dermatopathology Report ([id number]) Requested By: Jem Vieyra M.D. [id number] 10 DIAGNOSIS: A. Right upper forehead, Skin shave bio psy: Dermal nevus 09/25/03 Angela Calderon M.D. [phone] SPECIMEN DESCRIPTION: A: Right upper forehead, Skin shave bio psy TISSUE DESCRIPTION: [id number] A1 Historical Provider LAB PATH DERM ORDERABLES Performing Organization Address City/State/ZIP Code Phon e Number [facility] - [address] [place], [place] [address] [facility] documented in this encounter Visit Diagnoses Not on filedocumented in this encounter
--- OUTSIDE RECORDS SUMMARY | 2022-06-04 18:14 | XMS_ITS | Encounter Summary ---
:1940 Author Organization [facility] Address [address] [place] [address] Care Team Providers Name Role Phone Unavailable Primary Care Provider Unavailable Encounter Details Date Type Department Care Team Description 03/15/2011 Historical Ophthalmology RST OPH Thomas ll, Radhika A [address] [place], [place] [phone] Social History Tobacco Use [...] 05/23/2022 relatives? How often do you attend presybeterian or mormon Never 05/23/2022 services? Do you belong to any clubs or organizations such as No 05/23/2022 presybeterian groups, unions, fraternal or athletic groups, or [...] documented as of this encounter Progress Notes Radhika Valadez - 03/15/2011 11:40 AM CDT Eye Subsequent Visit HISTORY OF PRESENT ILLNESS Cataract surgery right eye with DR. Valdes 10-7-11. [phone] CDM Reports - EYESV Id: [id number] Status: Fnl documented in this encounter Plan of Treatment Not on filedocumented as of this encounter Visit Diagnoses Not on filedocumented in this encounter
--- OUTSIDE RECORDS SUMMARY | 2022-06-04 18:14 | XMS_ITS | Encounter Summary ---
:1940 Author Organization [facility] Address [address] [place] [address] Care Team Providers Name Role Phone Unavailable Primary Care Provider Unavailable Encounter Details Date Type Department Care Team Description 09/09/2013 - Hospital Encounter HX RST UNIT 9-2 09/11/2013 ORTHOPEDICS Social History Tobacco Use Types Packs/Day Years [...] 05/23/2022 relatives? How often do you attend moravian or congregational Never 05/23/2022 services? Do you belong to any clubs or organizations such as No 05/23/2022 moravian groups, unions, fraternal or athletic groups, or [...] Sign Reading Time Taken Comments Blood Pressure 163/85 09/11/2013 8:23 AM NIBP - Value from CDT Chartplus. Pulse 78 09/11/2013 8:23 AM Value from artplus. CDT Temperature - - Respiratory Rate 16 09/11/2013 8:23 AM Value from C hartplus. CDT Oxygen Saturation - - Inhaled Oxygen - - Concentration Weight 89.4 kg (197 lb 1.5 09/09/2013 6:03 AM oz) CDT Height 180 cm (5' 10.87) 09/09/2013 6:03 AM CDT Body Mass Index 27.59 09/09/2013 6:03 AM CDT documented in this encounter Medications at Time of Discharge Medication Sig Dispensed Refills Start Date End Date acetaminophen (TYLENOL) 500 Take 1-2 tablets by 0 09/08/2013 mg tablet mouth 3 (three) times a day as needed. pain documented as of this encounter Plan of Treatment Not on filedocumented as of this encounter Procedures Procedure Name Priority Date/Time Associated Comments Diagnosis ELECTROLYTE (CHEM 4) Routine 09/11/2013 5:02 AM R esults for this PANEL, S/P CDT procedure are i n the results section. CBC WITHOUT Routine 09/11/2013 5:02 AM Results f or this DIFFERENTIAL, B CDT procedure ar e in the results section. BONE DONOR SCREEN TEST Routine 09/10/2013 4:40 AM Results for this SET CDT procedure are i n the results section. ELECTROLYTE (CHEM 4) Routine 09/10/2013 4:40 AM R esults for this PANEL, S/P CDT procedure are i n the results section. CBC WITHOUT Routine 09/10/2013 4:40 AM Results f or this DIFFERENTIAL, B CDT procedure ar e in the results section. DX HIP UNILATERAL 2+ Routine 09/09/2013 10:03 Res ults for this VIEWS AM CDT procedure are i n the results section. HX MICROBIOLOGY REPORTS Routine 09/09/2013 9:00 AM Results for this CDT procedure are i n the results section. STAPHYLOCOCCUS AUREUS, Routine 09/08/2013 9:24 AM Results for this PCR CDT procedure are i n the results section. documented in this encounter Results (ABNORMAL) CBC without Differential (09/11/2013 5:02 AM CDT) [facility] Method Time Signature Erythrocytes 3.92 (L) 4.32 - [facility] 5.72 LABORATORIES - X10(12)/L [facility] MCV 85.5 81.2 - [facility] 95.1 [place] LABORATORIES - [facility] Hemoglobin 11.5 (L) 13.5 - [facility] 17.5 G/DL LABORATORIES - [facility] Hematocrit 33.5 (L) 38.8 - [facility] 50.0 % LABORATORIES - [facility] RBC Distrib 13.9 11.8 - [facility] Width 15.6 % LABORATORIES - [facility] Platelet Count 124 (L) 150 - 450 [facility] X10(9)/L LABORATORIES - [facility] Leukocytes 10.8 (H) 3.5 - [facility] 10.5 LABORATORIES - X10(9)/L [facility] Specimen Anatomical Collection Method Collection Time Receive d Time (Source) Location / / Volume Laterality 09/11/2013 5:02 AM 4 5:02 CDT AM CDT Jen Wen APRN C.N.P. LAB BLOOD ADD-ON Performing Organization Address City/State/ZIP Code Phon e Number [facility] - [address] [place], [place] [address] [facility] (ABNORMAL) Electrolyte (Chem 4) Panel (09/11/2013 5:02 AM CDT) [facility] Method Time Signature Sodium, S 137 135 - 145 [facility] MMOL/L LABORATORIES - [facility] [facility] Potassium, S 4.6 3.6 - 5.2 [facility] MMOL/L [facility] - [facility] Creatinine 1.4 (H) 0.8 - 1.3 [facility] MG/DL [facility] - [facility] BUN (Blood Urea 22 8 - 24 [facility] Nitrogen), S MG/DL LABORATORIES - [facility] Anion Gap 9 7 - 15 [facility] LABORATORIES - [facility] Glucose, S 110 70 - 140 [facility] MG/DL LABORATORIES - [place] Chloride, S 101 100 - 108 [facility] MMOL/L LABORATORIES - [place] [place] HX Bicarbonate, 27 22 - 29 [facility] P/S MMOL/L LABORATORIES - [facility] Specimen Anatomical Collection Method Collection Time Receive d Time (Source) Location / / Volume Laterality 09/11/2013 5:02 AM 4 5:02 CDT AM CDT Jen Wen APRN, C.N.P. LAB BLOOD ADD-ON Performing Organization Address City/State/ZIP Code Phon e Number [facility] - [address] [place], [place] [address] [facility] Bone Donor Screen Test Set (09/10/2013 4:40 AM CDT) [facility] Method Time Signature HBsAg Screen Negative [facility] Donor LABORATORIES - [place] Donor HBcore Negative [facility] Antibody LABORATORIES - [place] HX Hiv-1/-2, Negative [facility] Plus O Ab LABORATORIES - Screen Donor [facility] HTLV-I/-II Ab Negative [facility] Screen Donor LABORATORIES - [place] BECCA MPX Negative [facility] Individual LABORATORIES - Donor Screen [facility] Comment: Failure to detect HIV, HCV or HBV by PCR does not rule ? out the possibility of infection. This r esult should be ? evaluated in the context of the individu al's risk ? factors and clinical findings. ? This test is done by the [employer] Taq[employer] MPX Test ? ([employer] [facility], [place]). ? HCV Ab Screen Donor Negative [facility] Syphilis Ab Screen Donor Negative [facility] West Nile Virus BECCA Donor, P Negative [facility] Comment: Failure to detect WNV RNA does not rule out the ? possibility of West Nile virus infection . This result ? should be evaluated in the context of th e individual's ? risk factors and clinical findings. ? This test is done by the [employer] West Nile ? Virus Test([employer] [place], [place]). ? Specimen Anatomical Collection Method Collection Time Receive d Time (Source) Location / / Volume Laterality 09/10/2013 4:40 AM 4 4:40 CDT AM CDT Brady Brewer M.D. LAB BLOOD NON ADD-ON Performing Organization Address City/State/ZIP Code Phon e Number [facility] - [address] [place] [address] [facility] Electrolyte (Chem 4) Panel (09/10/2013 4:40 AM CDT) Analysis Performed At [facility] logist Time Signature Sodium, S 137 135 - 145 [facility] MMOL/L [facility] Potassium, S 4.1 3.6 - 5.2 [facility] MMOL/L LABORATORIES [facility] Creatinine 1.3 0.8 - 1.3 [facility] MG/DL [facility] BUN (Blood Urea 20 8 - 24 [facility] Nitrogen), S MG/DL [facility] - [facility] Anion Gap 9 7 - 15 [facility] Glucose, S 110 70 - 140 [facility] MG/DL [facility] Chloride, S 102 100 - 108 [facility] MMOL/L [facility] HX Bicarbonate, 26 22 - 29 [facility] P/S MMOL/L LABORATORIES - [facility] Specimen Anatomical Collection Method Collection Time Receive d Time (Source) Location / / Volume Laterality 09/10/2013 4:40 AM 4 4:40 CDT AM CDT Brady Brewer M.D. LAB BLOOD ADD-ON Performing Organization Address City/State/ZIP Code Phon e Number [facility] - [address] [place] [address] [facility] (ABNORMAL) CBC without Differential (09/10/2013 4:40 AM CDT) [facility] Time Signature Hemoglobin 12.0 (L) 13.5 - [facility] 17.5 G/DL LABORATORIES - [facility] Hematocrit 35.6 (L) 38.8 - [facility] 50.0 % LABORATORIES - [place] Leukocytes 10.1 3.5 - [facility] 10.5 LABORATORIES - X10(9)/L [facility] Erythrocytes 4.06 (L) 4.32 - [facility] 5.72 LABORATORIES - X10(12)/L [facility] MCV 87.7 81.2 - [facility] 95.1 [place] LABORATORIES - [place] RBC Distrib 13.7 11.8 - [facility] Width 15.6 % LABORATORIES - [place] Platelet Count 140 (L) 150 - 450 [facility] X10(9)/L LABORATORIES - [place] Specimen Anatomical Collection Method Collection Time Receive d Time (Source) Location / / Volume Laterality 09/10/2013 4:40 AM 4 4:40 CDT AM CDT Brady Brewer M.D. LAB BLOOD ADD-ON Performing Organization Address City/State/ZIP Code Phon e Number [facility] - [address] [place], [place] [address] [facility] DX Hip 2+ Views (09/09/2013 10:03 AM CDT) Anatomical Region Laterality Modality Lower Extremity, Hip N/A Radiographic Imagin g Specimen (Source) Anatomical Collection Method Collection Time Re ceived Time Location / / Volume Laterality 09/09/2013 10:03 AM CDT Narrative 09/09/2013 10:12 AM CDT 09-Sep-2013 10:03:00 ??Exam: L Hip 2vw AP/Lat Indications: POST OP. Left coxarthrosis. Left hip arthroplsaty total. ORIGINAL REPORT - 09-Sep-2013 10:12:00 Left Hip 2vw AP/Lat: Left LEAH is well seated. Negative for PO purposes. Prostatic calcifications. Electronically signed by: ?? Renate Hooks MD ??[phone] 09-Sep-2013 10:12 Procedure Note Silvio Hooks M.D. - 09/21/2017Formatt ing of this note might be different from the original. 09-Sep-2013 10:03:00 Exam: L Hip 2vw AP/ Lat Indications: POST OP. Left coxarthrosis. Left hip arthroplsaty total. ORIGINAL REPORT - 09-Sep-2013 10:12:00 Left Hip 2vw AP/Lat: Left LEAH is well seated. Negative for PO purposes. Prostatic calcifications. Electronically signed by: Renate Hooks MD [id number] 09-Sep-2013 10:12 Avelino Arteaga M.D. IMG DIAGNOSTIC IMAGING [facility] ANTHONY Microbiology Reports (09/09/2013 9:00 AM CDT) Specimen Anatomical Collection Method Collection Time Receive d Time (Source) Location / / Volume Laterality 09/09/2013 9:00 AM 4 CDT 10:20 AM CDT Narrative [facility] - 09/14/2013 7:23 AM CDT 09-SEP-2013 BONE BANK BONE, FEMORAL HEAD LEFT BONE DONOR ?SoftOrd# [id number] ?(Ordered 09-SEP-2013; Collec adenike 09-SEP-2013 09:00; Received 09-SEP-2013 10:19) ?[facility] ?BACTERIA CULTURE, DONOR ? (Reported 14-SEP-2013 07:23) FINAL ?No aerobic or anaerobic grow th after 5 days Procedure Note 10/02/2017 09-SEP-2013 BONE BANK BONE, FEMORAL HEAD LEFT BONE DONOR SoftOrd# [id number] (Ordered 09-SEP-2013; Collected 2013 09:00; Received 09-SEP-2013 10:19) [facility] BACTERIA CULTURE, DONOR (Reported 07:23) FINAL No aerobic or anaerobic growth after 5 days Avelino Arteaga M.D. LAB MICROBIOLOGY - GENERAL O RDERABLES Performing Organization Address City/State/ZIP Code Phon e Number [facility] - [address] [place], [place] [address] [facility] Staphylococcus aureus PCR (09/08/2013 9:24 AM CDT) athologist Signature Specimen . [facility] Source (Staph LABORATORIES - aureus PCR) [facility] Comment: BILATERAL NARES SWAB HX STAPHYLOCOCCUS AUREUS PCR Negative Not Applicable [facility] Comment: Laboratory developed test. Specimen Anatomical Collection Method Collection Time Receive d Time (Source) Location / / Volume Laterality 09/08/2013 9:24 AM 4 9:24 CDT AM CDT Ke Aguilar M.D. LAB MICROBIOLOGY - GENERAL O RDERABLES Performing Organization Address City/State/ZIP Code Phon e Number [facility] - [address] [place], [place] [address] [facility] documented in this encounter Visit Diagnoses Not on filedocumented in this encounter
--- OUTSIDE RECORDS SUMMARY | 2022-06-04 18:14 | XMS_ITS | Encounter Summary ---
:1940 Author Organization [facility] Address [address] [place] [address] Care Team Providers Name Role Phone Unavailable Primary Care Provider Unavailable Encounter Details Date Type Department Care Team Description 03/02/2008 Historical Ophthalmology RST Ferny Moreno O.D., Ph.D. Social History Tobacco Use Types Packs/Day Years [...] How often do you attend faith or restorationist Never 05/23/2022 services? Do you [...] or slept in a assisted (including now)? Sex Assigned at Date Recorded Male 04/08/2018 12:55 PM CDT documented as of this encounter Progress Notes Ferny Astorga O.D., Ph.D. - 03/02/2008 9:33 AM CDT Eye General CHIEF COMPLAINT Changes with vision HISTORY OF PRESENT ILLNESS He feels the near vision he is unable to see things very well. He never really wore his bifocals much but now is more dependent with them. He feels he can read all right with the bifocals. He still has trouble with some of the print in the newspaper. He feels his distance vision is pretty good withhis glasses. He has floaters occasionally. These he feels are new in the last few years. He denies flashes of light. 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 Suggest yearly evaluation #2 Bilateral cataracts, not affecting visual function Discussed, observe #3 Refractive error (hyperopic astigmatism, presbyopia) Given prescription for glasses #4 Blepharitis Lid hygiene DIAGNOSIS #1 History of occipital stroke 2003 associated with hemianopia #2 Bilateral cataracts, not affecting visual function #3 Refractive error (hyperopic astigmatism, presbyopia) #4 Blepharitis CDM Reports - EYEGEN Id: [id number] Status: Fnl documented in this encounter Plan of Treatment Not on filedocumented as of this encounter Visit Diagnoses Not on filedocumented in this encounter
--- OUTSIDE RECORDS SUMMARY | 2022-06-04 18:14 | XMS_ITS | Encounter Summary ---
:1940 Author Organization [facility] Address [address] [place] [address] Care Team Providers Name Role Phone Unavailable Primary Care Provider Unavailable Encounter Details Date Type Department Care Team Description 03/06/2013 Hospital Encounter HX RST [facility] EXERCISE LAB Ra jayna Weston M.D. [address] [place] [id number] (Wo rk) Social History Tobacco Use Types [...]
--- OUTSIDE RECORDS SUMMARY | 2022-06-04 18:14 | XMS_ITS | Encounter Summary ---
:1940 Author Organization [facility] Address [address] [place] [address] Care Team Providers Name Role Phone Unavailable Primary Care Provider Unavailable Encounter Details Date Type Department Care Team Description 01/20/2012 Hospital Encounter HX RST EMERGENCY Provider, Historic al TRAUMA UNI Social History Tobacco Use Types Packs/Day Years [...] How often do you attend congregation or samaritan Never 05/23/2022 services? Do you [...] or slept in a intermediate (including now)? Sex Assigned at Date Recorded Male 04/08/2018 12:55 PM CDT documented as of this encounter Plan of Treatment Not on filedocumented as of this encounter Procedures Procedure Name Priority Date/Time Associated Comments Diagnosis DX HIP UNILATERAL 1 VIEW Routine 09/08/2013 10:15 Results for this AM CDT procedure are i n the results section. ABORH, RBC Routine 09/08/2013 8:11 Results for this AM CDT procedure are i n the results section. ABORH, RBC Routine 09/08/2013 8:02 Results for this AM CDT procedure are i n the results section. ANTIBODY SCREEN, B Routine 09/08/2013 8:02 Result s for this AM CDT procedure are i n the results section. HX MICROBIOLOGY REPORTS Routine 09/08/2013 7:38 R esults for this AM CDT procedure are i n the results section. MICROSCOPIC MANUAL Routine 09/08/2013 7:38 Result s for this AM CDT procedure are i n the results section. GRAM'S ST, U Routine 09/08/2013 7:38 Results for this AM CDT procedure are i n the results section. URINALYSIS WITH Routine 09/08/2013 7:38 Results f or this MICROSCOPIC AM CDT procedure are i n the results section. CBC WITH DIFFERENTIAL, B Routine 09/08/2013 7:12 Results for this AM CDT procedure are i n the results section. BUN (BLOOD UREA Routine 09/08/2013 7:12 Results f or this NITROGEN), S/P AM CDT procedure are in the results section. SODIUM, S/P Routine 09/08/2013 7:12 Results for this AM CDT procedure are i n the results section. POTASSIUM, S/P Routine 09/08/2013 7:12 Results fo r this AM CDT procedure are i n the results section. GLUCOSE, FASTING, S/P Routine 09/08/2013 7:12 Res ults for this AM CDT procedure are i n the results section. CREATININE WITH EGFR, Routine 09/08/2013 7:12 Res ults for this S/P AM CDT procedure are i n the results section. CHLORIDE, S/P Routine 09/08/2013 7:12 Results for this AM CDT procedure are i n the results section. BICARBONATE, B/S/P Routine 09/08/2013 7:12 Result s for this AM CDT procedure are i n the results section. DX HIP UNILATERAL 2+ Routine 05/12/2013 9:12 Resu lts for this VIEWS AM MUSIC VIDEO DIRECTOR procedure are i n the results section. DX LUMBAR SPINE 2-3 Routine 05/12/2013 9:12 Resul ts for this VIEWS AM MUSIC VIDEO DIRECTOR procedure are i n the results section. HBSAG CONFIRM BLOOD Routine 03/19/2013 1:19 Resul ts for this DONOR, S PM CDT procedure are i n the results section. HCV AB SCREEN BLD DONOR Routine 03/19/2013 1:19 R esults for this PM CDT procedure are i n the results section. HBS AG BLD DONOR Routine 03/19/2013 1:19 Results for this PM CDT procedure are i n the results section. HBC TOTAL AB DONOR Routine 03/19/2013 1:19 Result s for this PM CDT procedure are i n the results section. EXERCISE ECG Routine 03/06/2013 9:55 AM CDT MICROSCOPIC MANUAL Routine 02/27/2013 8:45 Result s for this AM CDT procedure are i n the results section. URINALYSIS WITH Routine 02/27/2013 8:45 Results f or this MICROSCOPIC AM CDT procedure are i n the results section. LIPID PANEL, S Routine 02/27/2013 8:24 Results fo r this AM CDT procedure are i n the results section. PROSTATE-SPECIFIC AG Routine 02/27/2013 8:24 Resu lts for this (PSA) SCRN, S AM CDT procedure are in the results section. CBC WITHOUT Routine 02/27/2013 8:24 Results for this DIFFERENTIAL, B AM CDT procedure ar e in the results section. BUN (BLOOD UREA Routine 02/27/2013 8:24 Results f or this NITROGEN), S/P AM CDT procedure are in the results section. ASPARTATE Routine 02/27/2013 8:24 Results for this AMINOTRANSFERASE (AST), AM CDT proc edure are in S/P the results section. SODIUM, S/P Routine 02/27/2013 8:24 Results for this AM CDT procedure are i n the results section. POTASSIUM, S/P Routine 02/27/2013 8:24 Results fo r this AM CDT procedure are i n the results section. GLUCOSE, FASTING, S/P Routine 02/27/2013 8:24 Res ults for this AM CDT procedure are i n the results section. CREATININE WITH EGFR, Routine 02/27/2013 8:24 Res ults for this S/P AM CDT procedure are i n the results section. MICROSCOPIC MANUAL Routine 03/21/2012 7:38 Result s for this AM CDT procedure are i n the results section. URINALYSIS WITH Routine 03/21/2012 7:38 Results f or this MICROSCOPIC AM CDT procedure are i n the results section. LIPID PANEL, S Routine 03/21/2012 6:56 Results fo r this AM CDT procedure are i n the results section. PROSTATE-SPECIFIC AG Routine 03/21/2012 6:56 Resu lts for this (PSA) SCRN, S AM CDT procedure are in the results section. CBC WITHOUT Routine 03/21/2012 6:56 Results for this DIFFERENTIAL, B AM CDT procedure ar e in the results section. BUN (BLOOD UREA Routine 03/21/2012 6:56 Results f or this NITROGEN), S/P AM CDT procedure are in the results section. ASPARTATE Routine 03/21/2012 6:56 Results for this AMINOTRANSFERASE (AST), AM CDT proc edure are in S/P the results section. POTASSIUM, S/P Routine 03/21/2012 6:56 Results fo r this AM CDT procedure are i n the results section. GLUCOSE, FASTING, S/P Routine 03/21/2012 6:56 Res ults for this AM CDT procedure are i n the results section. CREATININE WITH EGFR, Routine 03/21/2012 6:56 Res ults for this S/P AM CDT procedure are i n the results section. documented in this encounter Results DX Hip 1 View (09/08/2013 10:15 AM CDT) Anatomical Region Laterality Modality Lower Extremity, Hip N/A Radiographic Imagin g Specimen (Source) Anatomical Collection Method Collection Time Re ceived Time Location / / Volume Laterality 09/08/2013 10:15 AM CDT Narrative 09/08/2013 10:17 AM CDT 08-Sep-2013 10:15:00 ??Exam: L Hip 1vw AP w/marker Indications: Pain Hip L ORIGINAL REPORT - 08-Sep-2013 10:17:00 Left Hip 1vw AP w/marker: Advanced degenerative arthritis left hip . Prostatic calcifications. Lower lumbar degenerative change. Electronically signed by: ?? Izaiah Verduzco ?? [phone] 08-Sep-2013 10:17 Procedure Note Raj Verduzco M.D. - 09/21/2017Format ting of this note might be different from the original. 08-Sep-2013 10:15:00 Exam: L Hip 1vw AP w/marker Indications: Pain Hip L ORIGINAL REPORT - 08-Sep-2013 10:17:00 Left Hip 1vw AP w/marker: Advanced degenerative arthritis left hip . Prostatic calcifications. Lower lumbar degenerative change. Electronically signed by: Izaiah Verduzco MD [id number] 08-Sep-2013 10:17 Alvaro Rivas M.D. IMG DIAGNOSTIC IMAGING PROCE DURES ABORh, RBC (09/08/2013 8:11 AM CDT) P athologist Signature HXABO/RH BLOOD O Pos [facility] TYPE [facility] Specimen (Source) Anatomical Collection Method Collection Time Re ceived Time Location / / Volume Laterality 09/08/2013 8:11 AM CDT Historical Provider LAB BLOOD BANK TEST ORDERABL ES Performing Organization Address City/[facility]/ZIP Code Phon e Number [facility] LAB[facility]ATORIES - [address] [place] [address] [facility] Antibody Screen, RBC (09/08/2013 8:02 AM CDT) Patholo gist Method Time Signature Antibody Negative [facility] Screen [facility] Specimen (Source) Anatomical Collection Method Collection Time Re ceived Time Location / / Volume Laterality 09/08/2013 8:02 AM CDT Historical Provider LAB BLOOD BANK TEST ORDERABL ES Performing Organization Address City/State/ZIP Code Phon e Number [facility]IES - [address] [place], [place] [address] [facility] ABORh, RBC (09/08/2013 8:02 AM CDT) P athologist Signature HXABO/RH O POS [facility] Specimen (Source) Anatomical Collection Method Collection Time Re ceived Time Location / / Volume Laterality 09/08/2013 8:02 AM CDT Historical Provider LAB BLOOD BANK TEST ORDERABL ES Performing Organization Address City/[facility]/ZIP Code Phon e Number [facility]IES - [address] [place] [address] [facility] Microbiology Reports (09/08/2013 7:38 AM CDT) Specimen Anatomical Collection Method Collection Time Receive d Time (Source) Location / / Volume Laterality 09/08/2013 7:38 AM 4 7:38 CDT AM CDT Narrative [facility] - 09/09/2013 8:08 AM CDT 08-SEP-2013 URINE, MIDSTREAM, ?SoftOrd# [id number] ?(Ordered 08-SEP-2013; Collec adenike 08-SEP-2013 07:38; Received 08-SEP-2013 08:37) ?[facility] ?BACTERIAL CULTURE, AEROBIC + ZIEGLER SC ? (Reported 09-SEP-2013 08:08) FINAL ?No Growth after 1 day of inc ubation. Procedure Note 10/02/2017 08-SEP-2013 URINE, MIDSTREAM, SoftOrd# [id number] (Ordered 08-SEP-2013; Collected 2013 07:38; Received 08-SEP-2013 08:37) [facility] BACTERIAL CULTURE, AEROBIC + SUSC (Rep orted 09-SEP-2013 08:08) FINAL No Growth after 1 day of incubation. Jen Wen APRN, C.N.P. LAB MICROBIOLOGY - GENERAL ORDERABLES Performing Organization Address City/State/ZIP Code Phon e Number [facility] - [address] [place], [place] [address] [facility] Microscopic Manual (09/08/2013 7:38 AM CDT) athologist Signature Microscopy Normal [facility] Specimen Anatomical Collection Method Collection Time Receive d Time (Source) Location / / Volume Laterality 09/08/2013 7:38 AM 4 7:38 CDT AM CDT Heather Ford APRNN.P. LAB URINE ORDERABLES Performing Organization Address City/[facility]/ZIP Code Phon e Number [facility]IES - [address] [place], [place] [address] [facility] Urinalysis with Microscopic (09/08/2013 7:38 AM CDT) [facility] gist Method Time Signature Source Midstream [facility] Appearance Normal Normal [facility] Osmolality, 24 354 150 - 1150 [facility] HR, U MOSM/KG LABORATORIES [facility] pH, 24 HR, U 6.4 4.5 - 8.0 [facility] Glucose 5 0 - 15 MG/DL [facility] LAB[facility]IES [facility] Protein, U 2 0 - 19 MG/DL [facility] Protein/Osmola 0.06 <0.12 RATIO [facility] lity LABORATORIES [facility] Predicted 24 61 MG/24 H [facility] Hr Protein LABORATORIES - [facility] Predicted 19-192 MG/24 H [facility] Range LABORATORIES - [facility] Hemoglobin, QL Negative Negative [facility] Specimen Anatomical Collection Method Collection Time Receive d Time (Source) Location / / Volume Laterality 09/08/2013 7:38 AM 4 7:38 CDT AM CDT Tita Ford APRN.N.P. LAB URINE ORDERABLES Performing Organization Address City/[facility]/ZIP Code Phon e Number [facility]IES - [address] [place] [address] [facility] Gram Stain, Urine (09/08/2013 7:38 AM CDT) [facility] gist Method Time Signature Gram's Stain, Negative [facility] Screen, U LABORATORIES - [facility] Specimen Anatomical Collection Method Collection Time Receive d Time (Source) Location / / Volume Laterality 09/08/2013 7:38 AM 4 7:38 CDT AM CDT Jen Wen APRN, Tita.N.P. LAB URINE ORDERABLES Performing Organization Address City/[facility]/ZIP Code Phon e Number [facility]IES - [address] [place] [address] [facility] Potassium (09/08/2013 7:12 AM CDT) P athologist Signature Potassium, S 4.3 3.6 - 5.2 [facility] MMOL/L LABORATORIES - [facility] Specimen Anatomical Collection Method Collection Time Receive d Time (Source) Location / / Volume Laterality 09/08/2013 7:12 AM 4 7:12 CDT AM CDT Jen Wen APRN, C.N.P. LAB BLOOD ADD-ON Performing Organization Address City/[facility] Phon e Number [facility]IES - [address] [place] [address] [facility] Chloride (09/08/2013 7:12 AM CDT) athologist Signature Chloride, S 101 100 - 108 [facility] MMOL/L LABORATORIES - [facility] Specimen Anatomical Collection Method Collection Time Receive d Time (Source) Location / / Volume Laterality 09/08/2013 7:12 AM 4 7:12 CDT AM CDT Jen Wen APRN, C.N.P. LAB BLOOD ADD-ON Performing Organization Address City/[facility] Phon e Number [facility]IES - [address] [place] [address] [facility] CBC with Differential (09/08/2013 7:12 AM CDT) [facility] gist Method Time Signature Erythrocytes 4.90 4.32 - [facility] 5.72 LABORATORIES - X10(12)/L [facility] MCV 85.1 81.2 - [facility] 95.1 FL LABORATORIES - [facility] RBC Distrib Width 13.7 11.8 - [facility] 15.6 % [facility] - [facility] Platelet Count 173 150 - 450 [facility] X10(9)/L [facility] Lymphocytes 1.46 0.90 - [facility] 2.90 LABORATORIES - X10(9)/L [facility] Monocytes 0.66 0.30 - [facility] 0.90 LABORATORIES - X10(9)/L [facility] Hemoglobin 14.3 13.5 - [facility] 17.5 G/DL [facility] - [facility] Hematocrit 41.7 38.8 - [facility] 50.0 % [facility] - [facility] Leukocytes 6.8 3.5 - [facility] 10.5 LABORATORIES - X10(9)/L [facility] Neutrophils 4.17 1.70 - [facility] 7.00 LABORATORIES - X10(9)/L [facility] Eosinophils 0.46 0.05 - [facility] 0.50 LABORATORIES - X10(9)/L [facility] Basophils 0.05 0.00 - [facility] 0.30 LABORATORIES - X10(9)/L [facility] Specimen Anatomical Collection Method Collection Time Receive d Time (Source) Location / / Volume Laterality 09/08/2013 7:12 AM 4 7:12 CDT AM CDT Jen Wen APRN, C.N.P. LAB BLOOD ADD-ON Performing Organization Address City/State/ZIP Code Phon e Number [facility] LABORATORIES - [address] [place], [place] [address] [facility] (ABNORMAL) Glucose, Fasting (09/08/2013 7:12 AM CDT) athologist Signature Last Intake 15 HR [facility] Glucose, P 101 (H) 70 - 100 [facility] MG/DL LABORATORIES - [facility] Specimen Anatomical Collection Method Collection Time Receive d Time (Source) Location / / Volume Laterality 09/08/2013 7:12 AM 4 7:12 CDT AM CDT Jen Wen APRN, C.N.P. LAB BLOOD NON ADD-ON Performing Organization Address City/State/ZIP Code Phon e Number [facility] LAB[facility]IES - [address] [place], [place] [address] [facility] Bicarbonate (09/08/2013 7:12 AM CDT) athologist Signature HX 27 22 - 29 [facility] Bicarbonate, MMOL/L LABORATORIES - P/S [facility] Specimen Anatomical Collection Method Collection Time Receive d Time (Source) Location / / Volume Laterality 09/08/2013 7:12 AM 4 7:12 CDT AM CDT Jen Wen APRN, C.N.P. LAB BLOOD ADD-ON Performing Organization Address City/State/ZIP Code Phon e Number [facility] LAB[facility]IES - [address] [place], [place] [address] [facility] Sodium (09/08/2013 7:12 AM CDT) athologist Signature Sodium, S 140 135 - 145 [facility] MMOL/L LABORATORIES [facility] Specimen Anatomical Collection Method Collection Time Receive d Time (Source) Location / / Volume Laterality 09/08/2013 7:12 AM 4 7:12 CDT AM CDT Tita Ford APRN.N.P. LAB BLOOD ADD-ON Performing Organization Address City/[facility]/ZIP Code Phon e Number [facility] LAB[facility]ATORIES - [address] [place] [address] [facility] BUN (Blood Urea Nitrogen) (09/08/2013 7:12 AM CDT) athologist Signature BUN (Blood 23 8 - 24 [facility] Urea MG/DL LABORATORIES - Nitrogen), S [facility] Specimen Anatomical Collection Method Collection Time Receive d Time (Source) Location / / Volume Laterality 09/08/2013 7:12 AM 4 7:12 CDT AM CDT Jen Wen APRN, Tita.N.P. LAB BLOOD ADD-ON Performing Organization Address City/[facility]/ZIP Code Phon e Number [facility] LABORATORIES - [address] [place] [address] [facility] (ABNORMAL) Creatinine with Estimated GFR (MDRD) (09/08/2013 7:12 AM CDT) athologist Signature Creatinine 1.5 (H) 0.8 - 1.3 [facility] MG/DL [facility] Specimen Anatomical Collection Method Collection Time Receive d Time (Source) Location / / Volume Laterality 09/08/2013 7:12 AM 4 7:12 CDT AM CDT Jen Wen APRN, C.N.P. LAB BLOOD ADD-ON Performing Organization Address City/[facility]/[place]IP [facility] [place] e [place] [facility] LABORATORIES - [address] [place] [address] [facility] DX Hip 2+ Views (05/12/2013 9:12 AM MUSIC VIDEO DIRECTOR) Anatomical Region Laterality Modality Lower Extremity, Hip N/A Radiographic Imagin g Specimen (Source) Anatomical Collection Method Collection Time Re ceived Time Location / / Volume Laterality 05/12/2013 9:12 AM MUSIC VIDEO DIRECTOR Narrative 05/12/2013 9:22 AM MUSIC VIDEO DIRECTOR 12-May-2013 09:12:00 ??Exam: L Hip 2vw AP/Obl Indications: Pain Hip L ORIGINAL REPORT - 12-May-2013 09:22:00 Sp Lmb 2vw AP/Lat: Left X-ray hip, 2 views, including AP vi ew of the pelvis: Multilevel lumbar facet arthritis, hyper trophic change, and degenerative disc disease. Osteoarthritis both hips, more marked on the left. Prostatic calcifications. Electronically signed by: ?? Renate Hooks MD ??[phone] 12-May-2013 09:22 Procedure Note Silvio Hooks M.D. - 09/21/2017Formatt ing of this note might be different from the original. 12-May-2013 09:12:00 Exam: L Hip 2vw AP/ Obl Indications: Pain Hip L ORIGINAL REPORT - 12-May-2013 09:22:00 Sp Lmb 2vw AP/Lat: Left X-ray hip, 2 views, including AP vi ew of the pelvis: Multilevel lumbar facet arthritis, hyper trophic change, and degenerative disc disease. Osteoarthritis both hips, more marked on the left. Prostatic calcifications. Electronically signed by: Renate Hooks MD [phone] 12-May-2013 09:22 Antelmo Reese M.D. IMG DIAGNOSTIC IMAGING PROCE DURES DX Lumbar Spine 2-3 Views (05/12/2013 9:12 AM [facility]) Anatomical Region Laterality Modality Lumbar Spine N/A Radiographic Imaging Specimen (Source) Anatomical Collection Method Collection Time Re ceived Time Location / / Volume Laterality 05/12/2013 9:12 AM [facility] Narrative 05/12/2013 9:22 AM [facility] 12-May-2013 09:12:00 ??Exam: Sp Lmb 2vw AP/Lat Indications: Pain Hip L ORIGINAL REPORT - 12-May-2013 09:22:00 Sp Lmb 2vw AP/Lat: Left X-ray hip, 2 views, including AP vi ew of the pelvis: Multilevel lumbar facet arthritis, hyper trophic change, and degenerative disc disease. Osteoarthritis both hips, more marked on the left. Prostatic calcifications. Electronically signed by: ?? Renate Hooks MD ??[phone] 12-May-2013 09:22 Procedure Note Silvio Hooks M.D. - 09/21/2017Formatt ing of this note might be different from the original. 12-May-2013 09:12:00 Exam: Sp Lmb 2vw AP /Lat Indications: Pain Hip L ORIGINAL REPORT - 12-May-2013 09:22:00 Sp Lmb 2vw AP/Lat: Left X-ray hip, 2 views, including AP vi ew of the pelvis: Multilevel lumbar facet arthritis, hyper trophic change, and degenerative disc disease. Osteoarthritis both hips, more marked on the left. Prostatic calcifications. Electronically signed by: Renate Hooks MD [phone] 12-May-2013 09:22 Antelmo Reese M.D. IMG DIAGNOSTIC IMAGING PROCE ANTHONY HCV Ab Screen Bld Donor (03/19/2013 1:19 PM CDT) [facility] Method Time Signature HCV Ab Screen, Negative [facility] Bld Donor, S [facility] Specimen Anatomical Collection Method Collection Time Receive d Time (Source) Location / / Volume Laterality 03/19/2013 1:19 PM 3 1:19 CDT PM CDT Delvin Mills M.D. LAB MICROBIOLOGY - BLOOD ORD ERABLES Performing Organization Address City/[facility] Code Phon e Number [facility] LABORATORIES - [address] HBc Total Ab Donor (03/19/2013 1:19 PM CDT) [facility] [employer] Method Time Signature Donor HBcore Negative [facility] Antibody [facility] Specimen Anatomical Collection Method Collection Time Receive d Time (Source) Location / / Volume Laterality 03/19/2013 1:19 PM 3 1:19 CDT PM CDT Delvin Mills M.D. LAB MICROBIOLOGY - BLOOD ORD ERABLES Performing Organization Address City/[facility] Phon e Number [facility] LAB[facility]ATORIES - [address] HBsAg Confirm Bld Donor (03/19/2013 1:19 PM CDT) [facility] Method Time Signature HBsAg Screen NEGATIVE [facility] Donor [facility] Comment: Unconfirmed EIA repeatedly reactive NOT confirmed by ? neutralization; non-neutralized. ? Specimen Anatomical Collection Method Collection Time Receive d Time (Source) Location / / Volume Laterality 03/19/2013 1:19 PM 3 1:19 CDT PM CDT Delvin Mills M.D. LAB MICROBIOLOGY - BLOOD ORD ERABLES Performing Organization Address [facility] Phon e Number [facility]IES - [address] [place] [address] [facility] HBs Ag, Bld Donor (03/19/2013 1:19 PM CDT) Patholo gist Method Time Signature HBs Ag Confirm Reactive [facility] Bld Donor, S [facility] Specimen Anatomical Collection Method Collection Time Receive d Time (Source) Location / / Volume Laterality 03/19/2013 1:19 PM 3 1:19 CDT PM CDT Delvin Mills M.D. LAB MICROBIOLOGY - BLOOD ORD ERABLES Performing Organization Address City/[facility] Phon e Number [facility]IES - [address] [place], [place] [address] [facility] Exercise ECG (03/06/2013 9:55 AM CDT) Specimen (Source) Anatomical Collection Method Collection Time Re ceived Time Location / / Volume Laterality 03/06/2013 9:55 AM CDT Chandrakant Weston M.D. CV STRESS PROCEDURES Performing Organization Address [facility]/ZIP Code Phon e Number HX ADRIAN CONVERSION Microscopic Manual (02/27/2013 8:45 AM CDT) P athologist Signature Microscopy Normal [facility] Specimen Anatomical Collection Method Collection Time Receive d Time (Source) Location / / Volume Laterality 02/27/2013 8:45 AM 3 8:45 CDT AM CDT Antelmo Reese M.D. LAB URINE ORDERABLES Performing Organization Address City/[facility]/ZIP Code Phon e Number [facility] LAB[facility]ATORIES - [address] [place], [place] [address] [facility] Urinalysis with Microscopic (02/27/2013 8:45 AM CDT) Patholo gist Method Time Signature Source Void [facility] LABORATORIES [facility] Appearance Normal Normal [facility] Glucose 6 0 - 15 MG/DL [facility] LAB[facility]ATORIES [facility] Protein, U 2 0 - 19 MG/DL [facility] [facility] Osmolality, 24 538 150 - 1150 [facility] HR, U MOSM/KG [facility] pH, 24 HR, U 7.0 4.5 - 8.0 [facility] LABORATORIES [facility] Protein/Osmola 0.04 <0.12 RATIO [facility] lity LABORATORIES [facility] Predicted 24 41 MG/24 H [facility] Hr Protein LABORATORIES - [facility] Predicted 13-129 MG/24 H [facility] Range LABORATORIES - [facility] Hemoglobin, QL Negative Negative [facility] Specimen Anatomical Collection Method Collection Time Receive d Time (Source) Location / / Volume Laterality 02/27/2013 8:45 AM 3 8:45 CDT AM CDT Antelmo Reese M.D. LAB URINE ORDERABLES Performing Organization Address City/[facility]/ZIP Code Phon e Number [facility] LABORATORIES - [address] [place] [address] [facility] BUN (Blood Urea Nitrogen) (02/27/2013 8:24 AM CDT) P athologist Signature BUN (Blood 22 8 - 24 [facility] Urea MG/DL LABORATORIES - Nitrogen), S [facility] Specimen Anatomical Collection Method Collection Time Receive d Time (Source) Location / / Volume Laterality 02/27/2013 8:24 AM 3 8:24 CDT AM CDT Antelmo Reese M.D. LAB BLOOD ADD-ON Performing Organization Address City/State/ZIP Code Phon e Number [facility] LABORATORIES - [address] [place], [place] [address] [facility] Potassium (02/27/2013 8:24 AM CDT) P athologist Signature Potassium, S 5.1 3.6 - 5.2 [facility] MMOL/L [facility] Specimen Anatomical Collection Method Collection Time Receive d Time (Source) Location / / Volume Laterality 02/27/2013 8:24 AM 3 8:24 CDT AM CDT Antelmo Reese M.D. LAB BLOOD ADD-ON Performing Organization Address City/State/ZIP Code Phon e Number [facility] LABORATORIES - [address] [place], [place] [address] [facility] AST (Aspartate Aminotransferase) (02/27/2013 8:24 AM CDT) P athologist Signature AST, Total, S 20 8 - 48 U/L [facility] Specimen Anatomical Collection Method Collection Time Receive d Time (Source) Location / / Volume Laterality 02/27/2013 8:24 AM 3 8:24 CDT AM CDT Antelmo Reese M.D. LAB BLOOD ADD-ON Performing Organization Address City/State/ZIP Code Phon e Number [facility] LABORATORIES - [address] [place], [place] [address] [facility] Sodium (02/27/2013 8:24 AM CDT) P athologist Signature Sodium, S 143 135 - 145 [facility] MMOL/L [facility] Specimen Anatomical Collection Method Collection Time Receive d Time (Source) Location / / Volume Laterality 02/27/2013 8:24 AM 3 8:24 CDT AM CDT Antelmo Reese M.D. LAB BLOOD ADD-ON Performing Organization Address City/State/ZIP Code Phon e Number [facility] - [address] [place], [place] [address] [facility] Glucose, Fasting (02/27/2013 8:24 AM CDT) P athologist Signature Last Intake 15 HR [facility] Glucose, P 97 70 - 100 [facility] MG/DL [facility] Specimen Anatomical Collection Method Collection Time Receive d Time (Source) Location / / Volume Laterality 02/27/2013 8:24 AM 3 8:24 CDT AM CDT Antelmo Reese M.D. LAB BLOOD NON ADD-ON Performing Organization Address City/[facility]/ZIP Code Phon e Number [facility] LABORATORIES - [address] [place] [address] [facility] CBC without Differential (02/27/2013 8:24 AM CDT) Patholo gist Method Time Signature Hemoglobin 14.0 13.5 - [facility] 17.5 G/DL [facility] Hematocrit 41.3 38.8 - [facility] 50.0 % [facility] RBC Distrib Width 13.4 11.8 - [facility] 15.6 % [facility] Platelet Count 157 150 - 450 [facility] X10(9)/L [facility] Leukocytes 8.0 3.5 - [facility] 10.5 LABORATORIES - X10(9)/L [facility] Erythrocytes 4.77 4.32 - [facility] 5.72 LABORATORIES - X10(12)/L [facility] MCV 86.6 81.2 - [facility] 95.1 FL [facility] Specimen Anatomical Collection Method Collection Time Receive d Time (Source) Location / / Volume Laterality 02/27/2013 8:24 AM 3 8:24 CDT AM CDT Antelmo Reese M.D. LAB BLOOD ADD-ON Performing Organization Address City/[facility] Code Phon e Number [facility] LABORATORIES - [address] [place] [address] [facility] PSA (Prostate-Specific Antigen) Screen (02/27/2013 8:24 AM CDT) P athologist Signature Prostate-Speci 1.5 <=6.5 [facility] fic Ag NG/ML [facility] Comment: The testing method is an electrochemilum inescence ? assay manufactured by [employer]. and ? performed on the Modular or [employer] system . ? Values obtained with different assay met hods or kits ? may be different and cannot be used inte rchangeably. ? Test results cannot be interpreted as ab solute evidence ? for the presence or absence of malignant disease. ? Specimen Anatomical Collection Method Collection Time Receive d Time (Source) Location / / Volume Laterality 02/27/2013 8:24 AM 3 8:24 CDT AM CDT Antelmo Reese M.D. LAB BLOOD ADD-ON Performing Organization Address City/State/ZIP Code Phon e Number [facility] LABORATORIES - [address] [place], [place] [address] [facility] Lipid Panel (02/27/2013 8:24 AM CDT) [facility] gist Method Time Signature Cholesterol, 116 SeeComment [facility] Total MG/DL LABORATORIES - [facility] Comment: Reference Range: ? NCEP guidelines ? (ages 18y and up) ? Desirable: <200 ? Borderline high: 200-239 ? High: > or =240 ? Triglycerides 65 SeeComment MG/DL [facility] - [facility] Comment: Reference Range: ? NCEP guidelines ? (ages 18y and up) ? Normal: <150 ? Borderline high: 150-199 ? High: 200-499 ? Very high: > or =500 ? Cholesterol, Non-HDL, 63 SeeComment MG/DL [facility] LABORATORIES - Calculated [facility] Comment: Reference Range: ? NCEP guidelines ? Desirable: <130 ? Borderline high: 130-159 ? High: 160-189 ? Very high: > or =190 ? Cholesterol, HDL, S 53 SeeComment MG/DL [facility] - [facility] Comment: Reference Range: ? NCEP guidelines ? (ages 18y and up) ? Low: <40 ? Normal: 40-59 ? High : > or =60 ? Calculated LDL 50 SeeComment MG/DL [facility] - [facility] Comment: Reference Range: ? NCEP guidelines ? (ages 18y and up) ? Optimal: <100 ? Near Optimal: 100-129 ? Borderline high: 130-159 ? High: 160-189 ? Very high: > or =190 ? Specimen Anatomical Collection Method Collection Time Receive d Time (Source) Location / / Volume Laterality 02/27/2013 8:24 AM 3 8:24 CDT AM CDT Antelmo Reese M.D. LAB BLOOD ADD-ON Performing Organization Address City/State/ZIP Code Phon e Number [facility] LABORATORIES - [address] [place], [place] [address] [facility] (ABNORMAL) Creatinine with Estimated GFR (MDRD) (02/27/2013 8:24 AM CDT) P athologist Signature Creatinine 1.5 (H) 0.8 - 1.3 [facility] MG/DL LABORATORIES - [facility] Specimen Anatomical Collection Method Collection Time Receive d Time (Source) Location / / Volume Laterality 02/27/2013 8:24 AM 3 8:24 CDT AM CDT Antelmo Reese M.D. LAB BLOOD ADD-ON Performing Organization Address City/[facility]/ZIP Code Phon e Number [facility] LABORATORIES - [address] [place] [phone] [facility] Microscopic Manual (03/21/2012 7:38 AM CDT) P athologist Signature Microscopy Normal [facility] Specimen Anatomical Collection Method Collection Time Receive d Time (Source) Location / / Volume Laterality 03/21/2012 7:38 AM 2 7:38 CDT AM CDT Antelmo Reese M.D. LAB URINE ORDERABLES Performing Organization Address City/[facility]/ZIP Code Phon e Number [facility] - [address] Urinalysis with Microscopic (03/21/2012 7:38 AM CDT) [facility] Method Time Signature Glucose 3 0 - 15 MG/DL [facility] Protein, U 1 0 - 19 MG/DL [facility] pH, 24 HR, U 6.5 4.5 - 8.0 [facility] Protein/Osmola 0.03 <0.12 RATIO [facility] lity [facility] Source Void [facility] Appearance Normal Normal [facility] Hemoglobin, QL Negative Negative [facility] Osmolality, 24 399 150 - 1150 [facility] HR, U MOSM/KG [facility] Predicted 24 28 MG/24 H [facility] Hr Protein [facility] Predicted 9-88 MG/24 H [facility] Range [facility] Specimen Anatomical Collection Method Collection Time Receive d Time (Source) Location / / Volume Laterality 03/21/2012 7:38 AM 2 7:38 CDT AM CDT Antelmo Reese M.D. LAB URINE ORDERABLES Performing Organization Address City/[facility]/ZIP Code Phon e Number [facility] LABORATORIES - [address] [place] [address] [facility] Lipid Panel (03/21/2012 6:56 AM CDT) [facility] Method Time Signature Cholesterol, 62 SeeComment [facility] HDL, S MG/DL [facility] - [facility] Comment: Reference Range: ? NCEP guidelines ? (ages 18y and up) ? Low: <40 ? Normal: 40-59 ? High : > or =60 ? Calculated LDL 53 SeeComment MG/DL [facility] Comment: Reference Range: ? NCEP guidelines ? (ages 18y and up) ? Optimal: <100 ? Near Optimal: 100-129 ? Borderline high: 130-159 ? High: 160-189 ? Very high: > or =190 ? Cholesterol, Total 126 SeeComment MG/DL [facility] Comment: Reference Range: ? NCEP guidelines ? (ages 18y and up) ? Desirable: <200 ? Borderline high: 200-239 ? High: > or =240 ? Triglycerides 55 SeeComment MG/DL [facility] Comment: Reference Range: ? NCEP guidelines ? (ages 18y and up) ? Normal: <150 ? Borderline high: 150-199 ? High: 200-499 ? Very high: > or =500 ? Cholesterol, Non-HDL, 64 SeeComment MG/DL [facility] LAB[facility]ATORIES - Calculated [facility] Comment: Reference Range: ? NCEP guidelines ? Desirable: <130 ? Borderline high: 130-159 ? High: 160-189 ? Very high: > or =190 ? Specimen Anatomical Collection Method Collection Time Receive d Time (Source) Location / / Volume Laterality 03/21/2012 6:56 AM 2 6:56 CDT AM CDT Antelmo Reese M.D. LAB BLOOD ADD-ON Performing Organization Address City/[facility] Phon e Number [facility] LABORATORIES - [address] [place], [place] [address] [facility] CBC without Differential (03/21/2012 6:56 AM CDT) Patholo gist Method Time Signature Erythrocytes 5.17 4.32 - [facility] 5.72 LABORATORIES - X10(12)/L [facility] MCV 86.8 81.2 - [facility] 95.1 FL LABORATORIES [facility] Leukocytes 7.3 3.5 - [facility] 10.5 LABORATORIES - X10(9)/L [facility] Hemoglobin 14.8 13.5 - [facility] 17.5 G/DL [facility] Hematocrit 44.9 38.8 - [facility] 50.0 % [facility] RBC Distrib Width 14.2 11.8 - [facility] 15.6 % [facility] Platelet Count 161 150 - 450 [facility] X10(9)/L [facility] Specimen Anatomical Collection Method Collection Time Receive d Time (Source) Location / / Volume Laterality 03/21/2012 6:56 AM 2 6:56 CDT AM CDT Antelmo Reese M.D. LAB BLOOD ADD-ON Performing Organization Address City/[facility] Phon e Number [facility] LABORATORIES - [address] [place], [place] [address] [facility] (ABNORMAL) Glucose, Fasting (03/21/2012 6:56 AM CDT) P athologist Signature Last Intake 13 HR [facility] Glucose, P 102 (H) 70 - 100 [facility] MG/DL [facility] Specimen Anatomical Collection Method Collection Time Receive d Time (Source) Location / / Volume Laterality 03/21/2012 6:56 AM 2 6:56 CDT AM CDT Antelmo Reese M.D. LAB BLOOD NON ADD-ON Performing Organization Address City/State/ZIP Code Phon e Number [facility] - [address] [address] [facility] (ABNORMAL) Creatinine with Estimated GFR (MDRD) (03/21/2012 6:56 AM CDT) athologist Signature Creatinine 1.6 (H) 0.8 - 1.3 [facility] MG/DL [facility] Specimen Anatomical Collection Method Collection Time Receive d Time (Source) Location / / Volume Laterality 03/21/2012 6:56 AM 2 6:56 CDT AM CDT Antelmo Reese M.D. LAB BLOOD ADD-ON Performing Organization Address City/[facility]/ZIP Code Phon e Number [facility] - [address] [address] [facility] AST (Aspartate Aminotransferase) (03/21/2012 6:56 AM CDT) athologist [facility] AST, Total, S 22 8 - 48 U/L [facility] Specimen Anatomical Collection Method Collection Time Receive d Time (Source) Location / / Volume Laterality 03/21/2012 6:56 AM 2 6:56 CDT AM CDT Antelmo Reese M.D. LAB BLOOD ADD-ON Performing Organization Address City/[facility]/ZIP Code Phon e Number [facility] - [address] [address] [facility] PSA (Prostate-Specific Antigen) Screen (03/21/2012 6:56 AM CDT) P athologist Signature Prostate-Speci 2.1 <=6.5 [facility] fic Ag NG/ML [facility] Comment: The testing method is an electrochemilum inescence ? assay manufactured by [employer] and ? performed on the Modular or [employer] system . ? Values obtained with different assay met hods or kits ? may be different and cannot be used inte rchangeably. ? Test results cannot be interpreted as ab solute evidence ? for the presence or absence of malignant disease. ? Specimen Anatomical Collection Method Collection Time Receive d Time (Source) Location / / Volume Laterality 03/21/2012 6:56 AM 2 6:56 CDT AM CDT Antelmo Reese M.D. LAB BLOOD ADD-ON Performing Organization Address City/State/ZIP Code Phon e Number [facility] LABORATORIES - [address] [place] [address] [facility] (ABNORMAL) BUN (Blood Urea Nitrogen) (03/21/2012 6:56 AM CDT) Analysis Performed At Patho logist Time Signature BUN (Blood 26 (H) 8 - 24 [facility] Urea MG/DL LABORATORIES - Nitrogen), S [facility] Specimen Anatomical Collection Method Collection Time Receive d Time (Source) Location / / Volume Laterality 03/21/2012 6:56 AM 2 6:56 CDT AM CDT Antelmo Reese M.D. LAB BLOOD ADD-ON Performing Organization Address City/[facility]/ZIP Code Phon e Number [facility] LABORATORIES - [address] [place] [address] [facility] Potassium (03/21/2012 6:56 AM CDT) P athologist Signature Potassium, S 4.5 3.6 - 5.2 [facility] MMOL/L LABORATORIES [facility] Specimen Anatomical Collection Method Collection Time Receive d Time (Source) Location / / Volume Laterality 03/21/2012 6:56 AM 2 6:56 CDT AM CDT Antelmo Reese M.D. LAB BLOOD ADD-ON Performing Organization Address City/State/ZIP Code Phon e Number [facility] LABORATORIES - [address] [address] [facility] documented in this encounter Visit Diagnoses Not on filedocumented in this encounter
--- OUTSIDE RECORDS SUMMARY | 2022-06-04 18:14 | XMS_ITS | Encounter Summary ---
:1940 Author Organization [facility] Address [address] [place] [address] Care Team Providers Name Role Phone Unavailable Primary Care Provider Unavailable Encounter Details Date Type Department Care Team Description 02/09/2010 Historical Ophthalmology RST OPH Raul Joy, OLavelle [address] [place], [place] [phone] (Wo rk) Social History [...] How often do you attend quaker or gnosticism Never 05/23/2022 services? Do you [...] documented as of this encounter Progress Notes Raul Joy O.D. - 02/09/2010 9:34 AM CDT Eye General CHIEF COMPLAINT blurred vision, floaters HISTORY OF PRESENT ILLNESS Blurred vision; both eyes; x 6 months; intermittently; symptoms occur when driving, and when playinggolf and following the golf ball. More sensitivity to bright sun light and oncoming head lights withnight time driving. No noted vision changes when reading. Using over the counter readers when at thecomputer. Occasional floaters in both eyes. Denies eye pain, light flashes or diplopia. IMPRESSION / REPORT / PLAN #1 Cataract, both eyes, visually significant. Plan: obtain consult with cataract surgeon. DIAGNOSIS #1 Cataract, both eyes, visually significant. CD Reports - EYEGEN Id: [id number] Status: Fnl documented in this encounter Plan of Treatment Not on filedocumented as of this encounter Visit Diagnoses Not on filedocumented in this encounter
[2022-06-04 18:16] LABS: Basophils Absolute Auto 0.02 K/uL (0.00-0.30); Basophils Percent Auto 0.2 % (0.0-3.0); Eosinophils Absolute Auto 0.26 K/uL (0.00-0.50); Eosinophils Percent Auto 2.8 % (0.0-7.0); Hemoglobin* 11.9 gm/dL (13.5-17.5); Immature Granulocytes Abs Auto 0.04 K/uL (0.00-0.30); Immature Granulocytes Pct Auto 0.4 %; Lymphocytes Percent Auto 7.1 % (20-44); Mean Corpuscular HGB Conc 34 gm/dL (32-36); Mean Corpuscular Hemoglobin 31 pg (26-34); Mean Corpuscular Volume 91 fL (80-100); Monocytes Percent Auto 5.8 % (0.0-11.0); Neutrophils Percent Auto 83.7 % (42.0-72.0); Platelet Count* 190 K/uL (140-440); RDW Coefficient of Variation % 12.8 % (11.5-15.5); Red Blood Count 3.84 m/uL (4.30-5.90); White Blood Count* 9.35 K/uL (4.50-11.00)
[2022-06-04 18:19] LABS: Slide Review Reflex No; Troponin, Point-of-Care* 0.01 ng/ml (0.01-0.04)
[2022-06-04 18:30] LABS: Chloride* 99 mmol/L (96-114); Potassium* 3.9 mmol/L (3.6-5.1); Sodium* 134 mmol/L (135-149)
[2022-06-04 18:32] LABS: Carbon Dioxide* 30 mmol/L (20-32); Creatinine* 1.3 mg/dL (0.5-1.5); Est. Creatinine Clearance* 43.81; Estimated Glomerular Filt Rate 55 ml/min
[2022-06-04 18:33] LABS: Alanine Aminotransferase* 144 U/L (4-50); Alkaline Phosphatase* 208 U/L (40-150); Aspartate Amino Transferase* 273 U/L (12-35); Bilirubin Direct* 0.4 mg/dL (0.0-0.5); Bilirubin Total* 0.9 mg/dL (0.1-1.5); Blood Urea Nitrogen* 32 mg/dL (7-30); Glucose* 106 mg/dL (60-115); Total Protein* 6.6 g/dL (6.0-8.3)
[2022-06-04 18:34] LABS: Calcium* 9.2 mg/dL (8.4-10.6)
[2022-06-04 18:35] LABS: D Dimer Quantitative* 1.41 ug/ml (0.00-0.50)
[2022-06-04 18:40] LABS: C Reactive Protein* < 0.5 mg/dL (0.5-1.0)
[2022-06-04 18:43] LABS: NT Pro B Type NatriureticPept* 372 pg/mL
[2022-06-04 18:45] VITALS: BP 155/74; PULSE 65; RESP 16; O2SAT 98
[2022-06-04 19:00] VITALS: BP 147/73; PULSE 61; RESP 16; O2SAT 98
--- NOTE | 2022-06-04 19:43 | ED.NURSE ---
Pt was thankful to stand at BS, did void to urinal, tolerated well, continues to deny pain, at bs.
--- NOTE | 2022-06-04 20:05 | CRLHL7_ITS ---
For Patients: As a result of the Century Cures Act, medical imaging exams and procedure reports are released immediately into your electronic medical record. You may view this report before your referring provider. If you have questions, please contact your health care provider. HISTORY: Elevated liver function tests. COMPARISON: None. TECHNIQUE: Axial images were obtained through the abdomen pelvis following 95 cc of Isovue-370 intravenous contrast. FINDINGS: The lung bases are clear. Tiny low-density these in the liver should be cysts. The spleen is normal in size. There is distention of the gallbladder lumen. No visible stones. No biliary dilation. The pancreas and adrenal glands are normal. There are multiple cystic lesions in both kidneys some of which are hyperdense. No hydronephrosis. No lymphadenopathy or ascites. Left hip arthroplasty. Impression : Moderate gallbladder distention. Ultrasound could be performed if clinical concern for cholecystitis. Please note that all CT scans at this facility use dose modulation, iterative reconstruction, and/or weight-based dosing when appropriate to reduce radiation dose to as low as reasonably achievable. Dictated by Giselle Bustamante MD @ 06/04/2022 8:55:20 PM (Electronically Signed)
--- NOTE | 2022-06-04 20:06 | CRLHL7_ITS ---
For Patients: As a result of the Century Cures Act, medical imaging exams and procedure reports are released immediately into your electronic medical record. You may view this report before your referring provider. If you have questions, please contact your health care provider. HISTORY: Pain. COMPARISON: None. TECHNIQUE: Axial images were obtained through the chest following 95 cc of Isovue-370 intravenous contrast. FINDINGS: Adequate bolus of contrast. No evidence for pulmonary embolism. The lungs are clear. No pleural or pericardial effusion. No thoracic lymphadenopathy. There is distention of the gallbladder. No visible stones. The adrenal glands are normal. Multiple renal cysts some of which are hyperdense. No hydronephrosis. The bones are within normal. IMPRESSION: No evidence for pulmonary embolism. Please note that all CT scans at this facility use dose modulation, iterative reconstruction, and/or weight-based dosing when appropriate to reduce radiation dose to as low as reasonably achievable. Dictated by Giselle Bustamante MD @ 06/04/2022 8:48:45 PM (Electronically Signed)
[2022-06-04 20:19] LABS: Troponin, Point-of-Care* 0.01 ng/ml (0.01-0.04)
--- NOTE | 2022-06-04 20:23 | ED_ITS ---
HPI - General Adult General Date Seen: 06/04/22 Chief complaint: Chest Pain Stated complaint: Chest Pain Time Seen by Provider: 06/04/22 17:13 Source: patient and family History of Present Illness HPI narrative: Patient is an 81-year-old male who presents via EMS for an episode of chest pain. He says that he was putting up [place] lights when he developed pain in his low central chest which he rates as severe. He is not able to characterize it further. He says it did not radiate. He did not have other symptoms such as shortness of breath, nausea, diaphoresis, lightheadedness, palpitations or fainting. His further tells me that he had a heart attack 10 days ago. Clarification of this reveals that he had a scheduled appointment with his neurologist 10 days ago at which time he reported having had chest pain several days prior to that. They report that a number of tests were done, they do not know review the results of those tests nor are they clear on what if anything was supposed to happen after that. They say that there were some follow-up appointments arranged but then they were canceled. Was told increased 1 of his medications, they are not sure which 1. He does have a history of angina remotely. He says that prior to recently he had not been having chest pain. I reviewed strips from the ambulance which do show ST elevation in leads 2 3 in after but do not show any reciprocal ST depression. He has Q-waves in leads 2 3 and F as well. Currently, he says his pain is gone. It lasted about an hour. It does not sound like it was relieved with nitroglycerin. Related Data Home Medications Medication Instructions Recorded Confirmed amlodipine 2.5 mg tablet 1.25 mg PO DAILY 06/04/22 06/04/22 aspirin 325 mg tablet (Nora 325 mg PO DAILY 06/04/22 06/04/22 Aspirin) carvedilol 12.5 mg tablet 12.5 mg PO DAILY 06/04/22 06/04/22 finasteride 5 mg tablet 5 mg PO DAILY 06/04/22 06/04/22 losartan 100 1 tab PO DAILY 06/04/22 06/04/22 mg-hydrochlorothiazide 25 mg tablet nitroglycerin 0.4 mg sublingual 0.4 mg sublingual Q5-15M PRN 06/04/22 06/04/22 tablet rosuvastatin 10 mg tablet 10 mg PO DAILY 06/04/22 06/04/22 sertraline 50 mg tablet 50 mg PO Q24H 06/04/22 06/04/22 tamsulosin 0.4 mg capsule 0.4 mg PO Q24H 06/04/22 06/04/22 zolpidem 10 mg tablet 10 mg PO DAILY 06/04/22 06/04/22 Previous Rx's Medication Instructions Recorded nirmatrelvir 300 mg (150 mg See Rx Instructions PO .COMPLEX 03/13/22 x2)-ritonavir 100 mg tablet,dose #30 ea pack(EUA) (Paxlovid) Allergies Allergy/AdvReac Type Severity Reaction Status Date / Time No Known Drug Allergies Allergy Verified 06/04/22 17:36 Review of Systems Status of ROS: Reports: 10 or more systems reviewed and unremarkable except as noted in History and below PFSH PFS Social History Smoking Status: Former smoker Do you use any of these nicotine containing products: None Second hand tobacco smoke exposure: No How often do you have a drink containing alcohol: never How often do you have six or more drinks on one occasion: Never AUDIT-C Alcohol total score: 0 Non-prescribed substance use: denies use service: No Exam 2 Narrative: Exam Narrative: Vital signs as noted above. In general, an alert, well-appearing patient. Head: Normocephalic, atraumatic. Eyes: Pupils are equal reactive. Extraocular movements are full. Conjunctivae are normal. ENT: Mucous membranes are moist. Throat is normal. Neck: Supple without lymphadenopathy. Heart: Regular rate and rhythm. No murmur or rub. Lungs: Clear bilaterally. No increased work of breathing, crackles or wheezes. Abdomen: Soft and nontender. No organomegaly. Extremities: Well perfused. No edema. No calf tenderness. Pulses intact. Neurologic: Patient is alert and oriented to person and place. Speech is fluent. Face is symmetric. Moves all extremities equally. Affect: Normal. Skin: Warm and dry. Well perfused. Const: Vital Signs, click to edit/add: Vital Signs - 24 hr 06/04/22 17:23 06/04/22 17:40 06/04/22 17:30 Temperature 97.3 F L Pulse Rate [Right Pulse Oximeter] 58 L 64 Respiratory Rate 16 16 Blood Pressure [Ri [facility] Upper Arm] 136/69 149/68 H Pulse Oximetry 95 97 96 Oxygen Delivery Me thod Room Air 06/04/22 18:45 06/04/22 19:00 Temperature Pulse Rate [Right Pulse Oximeter] 65 61 Respiratory Rate 16 16 Blood Pressure [Ri ght Upper Arm] 155/74 H 147/73 H Pulse Oximetry 98 98 Oxygen Delivery Me thod Documenting provider has reviewed patient's vital signs: yes Course Course Hospital Course: On arrival, patient had an EKG. He does have by my review half a mm of ST elevation in leads 2 and 3, but again has Q-waves in does not have evidence of reciprocal depression. These changes are stable compared to previous EKG. Labs were drawn. I did request records from [facility]. His troponin was 22, upper limit of their reference range is 15. He went on to have an echo which told old inferior wall motion abnormality but nothing new. He had a stress dobutamine echo as well which was read as negative. It looks it is if ultimately they elected to have him increase his carvedilol to manage possible cardiac related chest pain despite the negative stress test. It does not sound as if any further follow-up appointments are planned. Patient did not have any further chest pain while in the emergency department. Labs are notable for a normal white blood cell count, hemoglobin of 11.9. D- dimer was elevated at 1.4. Troponins at time 0 and 2 hours were both normal. Metabolic panel was essentially normal. LFTs however were markedly elevated, AST was 273, ALT of 144. Patient is without a reported significant alcohol history. Alk-phos was elevated at 208. Bilirubin was normal. CRP less than 0.5. BNP was normal. Lipase was 220. Re-evaluation shows no abdominal tenderness. I elected to do a CT scan of the chest with contrast to rule out possibility of pulmonary embolism as well as a CT of the abdomen and pelvis gi tyler his elevated LFTs. By my review, CT of the chest was negative for pulmonary embolism, infiltrate, pneumothorax, dissection or other obvious explanation for his chest pain. Gallbladder appeared distended but I did not see evidence of wall thickening or gallstones. Final radiology reports are as follows: The lung bases are clear. Tiny low-density these in the liver should be cysts. The spleen is normal in size. There is distention of the gallbladder lumen. No visible stones. No biliary dilation. The pancreas and adrenal glands are normal. There are multiple cystic lesions in both kidneys some of which are hyperdense. No hydronephrosis. No lymphadenopathy or ascites. Left hip arthroplasty. Impression : Moderate gallbladder distention. Ultrasound could be performed if clinical concern for cholecystitis. Adequate bolus of contrast. No evidence for pulmonary embolism. The lungs are clear. No pleural or pericardial effusion. No thoracic lymphadenopathy. There is distention of the gallbladder. No visible stones. The adrenal glands are normal. Multiple renal cysts some of which are hyperdense. No hydronephrosis. The bones are within normal. IMPRESSION: No evidence for pulmonary embolism. At this time, given no pain or abdominal tenderness, normal white blood cell count, normal CRP, it is difficult to imagine that this would be cholecystitis, and I do not think additional imaging of the gallbladder is needed tonight. Patient's symptoms are little bit atypical, but I do not think biliary colic can entirely ruled out. I think a cardiac etiology for his pain is a little less likely given the negative stress test 10 days ago, however certainly this cannot be entirely ruled out as well. Troponins x2 are negative here however, and I think it is reasonable to let him go home. 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 Reese, and I have asked him to discuss all this with him next week. I provided the patient with copies of his scans and lab results. Also discussed that if he has recurrent symptoms, severe pain, new symptoms such as fevers, vomiting, jaundice, shortness of breath, syncope, etcetera he should return right away to the emergency department for further evaluation. Patient and his were comfortable with that plan. Vital Signs Vital signs: Initial Vital Signs Respiratory Effort 06/04/22 17:19 Respiratory Depth Normal 06/04/22 17:19 Respiratory Pattern 06/04/22 17:19 Vital Signs Temperature 97.3 F L 06/04/22 17:23 Pulse Rate 58 L 06/04/22 17:23 Respiratory Rate 16 06/04/22 17:23 Blood Pressure 136/69 06/04/22 17:23 Pulse Oximetry 95 06/04/22 17:23 Oxygen Delivery Method 06/04/22 17:23 Temperature 97.3 F L 06/04/22 17:23 Pulse Rate 61 06/04/22 19:00 Respiratory Rate 16 06/04/22 19:00 Blood Pressure 147/73 H 06/04/22 19:00 Pulse Oximetry 98 06/04/22 19:00 Oxygen Delivery Method 06/04/22 17:23 Medical Decision Making Lab Data Labs: Lab Results 06/04/22 06/04/22 06/04/22 Range/Units 18:03 18:03 18:03 WBC 9.35 (4.50-11.00) K/uL RBC 3.84 L (4.30-5.90) m/uL Hgb 11.9 L (13.5-17.5) gm/dL Hct 35.0 L (37.0-53.0) % MCV 91 (80-100) fL MCH 31 (26-34) pg MCHC 34 (32-36) gm/dL RDW Coeff of Radha 12.8 (11.5-15.5) % Plt Count 190 (140-440) K/uL Neut % (Auto) 83.7 H (42.0-72.0) % Lymph % (Auto) 7.1 L (20-44) % Fallon % (Auto) 5.8 (0.0-11.0) % Eos % (Auto) 2.8 (0.0-7.0) % Baso % (Auto) 0.2 (0.0-3.0) % Neut # (Auto) 7.80 H (1.7-7.0) K/uL Lymph # (Auto) 0.70 L (0.90-2.90) K/uL Fallon # (Auto) 0.50 (0.00-0.90) K/UL Eos # (Auto) 0.26 (0.00-0.50) K/uL Baso # (Auto) 0.02 (0.00-0.30) K/uL Abs Immat Gran (auto) 0.04 (0.00-0.30) K/uL Imm/Tot Granulo (auto) 0.4 % D-Dimer Quant (PE/DVT) 1.41 H (0.00-0.50) ug/ml Sodium 134 L (135-149) mmol/L Potassium 3.9 (3.6-5.1) mmol/L Chloride 99 (96-114) mmol/L Carbon Dioxide 30 (20-32) mmol/L BUN 32 H (7-30) mg/dL Creatinine 1.3 (0.5-1.5) mg/dL Estimated Creat Clear 43.81 Estimated GFR 55 ml/min Glucose 106 (60-115) mg/dL Calcium 9.2 (8.4-10.6) mg/dL Total Bilirubin 0.9 (0.1-1.5) mg/dL Direct Bilirubin 0.4 (0.0-0.5) mg/dL AST 273 H (12-35) U/L ALT 144 H (4-50) U/L Alkaline Phosphatase 208 H (40-150) U/L C-Reactive Protein < 0.5 L (0.5-1.0) mg/dL NT-Pro-B Natriuret Pep 372 pg/mL Total Protein 6.6 (6.0-8.3) g/dL Albumin 4.0 (3.3-5.0) g/dL Lipase (23-300) U/L POC Troponin I (0.01-0.04) ng/ml 06/04/22 06/04/22 06/04/22 Range/Units 18:03 18:03 18:03 WBC (4.50-11.00) K/uL RBC (4.30-5.90) m/uL Hgb (13.5-17.5) gm/dL Hct (37.0-53.0) % MCV (80-100) fL MCH (26-34) pg MCHC (32-36) gm/dL RDW Coeff of Radha (11.5-15.5) % Plt Count (140-440) K/uL Neut % (Auto) (42.0-72.0) % Lymph % (Auto) (20-44) % Fallon % (Auto) (0.0-11.0) % Eos % (Auto) (0.0-7.0) % Baso % (Auto) (0.0-3.0) % Neut # (Auto) (1.7-7.0) K/uL Lymph # (Auto) (0.90-2.90) K/uL Fallon # (Auto) (0.00-0.90) K/UL Eos # (Auto) (0.00-0.50) K/uL Baso # (Auto) (0.00-0.30) K/uL Abs Immat Gran (auto) (0.00-0.30) K/uL Imm/Tot Granulo (auto) % D-Dimer Quant (PE/DVT) (0.00-0.50) ug/ml Sodium (135-149) mmol/L Potassium (3.6-5.1) mmol/L Chloride (96-114) mmol/L Carbon Dioxide (20-32) mmol/L BUN (7-30) mg/dL Creatinine (0.5-1.5) mg/dL Estimated Creat Clear Estimated GFR ml/min Glucose (60-115) mg/dL Calcium (8.4-10.6) mg/dL Total Bilirubin (0.1-1.5) mg/dL Direct Bilirubin (0.0-0.5) mg/dL AST (12-35) U/L ALT (4-50) U/L Alkaline Phosphatase (40-150) U/L C-Reactive Protein (0.5-1.0) mg/dL NT-Pro-B Natriuret Pep Cancelled pg/mL Total Protein (6.0-8.3) g/dL Albumin (3.3-5.0) g/dL Lipase 220 (23-300) U/L POC Troponin I 0.01 (0.01-0.04) ng/ml 06/04/22 Range/Units 19:55 WBC (4.50-11.00) K/uL RBC (4.30-5.90) m/uL Hgb (13.5-17.5) gm/dL Hct (37.0-53.0) % MCV (80-100) fL MCH (26-34) pg MCHC (32-36) gm/dL RDW Coeff of Radha (11.5-15.5) % Plt Count (140-440) K/uL Neut % (Auto) (42.0-72.0) % Lymph % (Auto) (20-44) % Fallon % (Auto) (0.0-11.0) % Eos % (Auto) (0.0-7.0) % Baso % (Auto) (0.0-3.0) % Neut # (Auto) (1.7-7.0) K/uL Lymph # (Auto) (0.90-2.90) K/uL Fallon # (Auto) (0.00-0.90) K/UL Eos # (Auto) (0.00-0.50) K/uL Baso # (Auto) (0.00-0.30) K/uL Abs Immat Gran (auto) (0.00-0.30) K/uL Imm/Tot Granulo (auto) % D-Dimer Quant (PE/DVT) (0.00-0.50) ug/ml Sodium (135-149) mmol/L Potassium (3.6-5.1) mmol/L Chloride (96-114) mmol/L Carbon Dioxide (20-32) mmol/L BUN (7-30) mg/dL Creatinine (0.5-1.5) mg/dL Estimated Creat Clear Estimated GFR ml/min Glucose (60-115) mg/dL Calcium (8.4-10.6) mg/dL Total Bilirubin (0.1-1.5) mg/dL Direct Bilirubin (0.0-0.5) mg/dL AST (12-35) U/L ALT (4-50) U/L Alkaline Phosphatase (40-150) U/L C-Reactive Protein (0.5-1.0) mg/dL NT-Pro-B Natriuret Pep pg/mL Total Protein (6.0-8.3) g/dL Albumin (3.3-5.0) g/dL Lipase (23-300) U/L POC Troponin I 0.01 (0.01-0.04) ng/ml Discharge Plan Discharge Clinical Impression: Elevated liver function tests, Chest pain Patient Disposition: Home, Self-Care Condition: Stable Instructions: Chest Wall Pain (ED) Additional Instructions: Follow-up with your doctor at [facility] next week to discuss test results from [facility]. You may need further evaluation of your gallbladder. If at any time you have recurrent severe pain, new symptoms such as vomiting, fever, yellowing of your skin or eyes, shortness of breath, lightheadedness or fainting, return to the emergency department for more urgent evaluation. Prescriptions: No Action Paxlovid (EUA) 300 mg (150 mg x 2)-100 mg tablets,dose pack See Rx Instructions .ROUTE .COMPLEX Qty: 30 0RF Rx Instructions: take TWO 150 mg tablets of nirmatrelvir with ONE 100 mg tablet of ritonavir twice daily for 5 days amlodipine 2.5 mg tablet 1.25 mg PO DAILY Label Comments: TAKE ONE TABLET BY MOUTH ONE TIME DAILY carvedilol 12.5 mg tablet 12.5 mg PO DAILY Label Comments: TAKE ONE TABLET BY MOUTH TWICE A DAY WITH MEALS finasteride 5 mg tablet 5 mg PO DAILY Label Comments: TAKE ONE TABLET BY MOUTH ONE TIME DAILY losartan-hydrochlorothiazide 100-25 mg tablet 1 tab PO DAILY Label Comments: TAKE ONE TABLET BY MOUTH EVERY DAY IN THE MORNING rosuvastatin 10 mg tablet 10 mg PO DAILY Label Comments: TAKE ONE TABLET BY MOUTH ONE TIME DAILY in the evening. sertraline 50 mg tablet 50 mg PO Q24H Label Comments: TAKE ONE TABLET BY MOUTH ONE TIME DAILY tamsulosin 0.4 mg capsule 0.4 mg PO Q24H Label Comments: TAKE ONE CAPSULE BY MOUTH ONE TIME DAILY zolpidem 10 mg tablet 10 mg PO DAILY Label Comments: TAKE ONE TABLET BY MOUTH ONE TIME DAILY AT BEDTIME aspirin [Nora Aspirin] 325 mg tablet 325 mg PO DAILY nitroglycerin 0.4 mg tablet, sublingual 0.4 mg sublingual Q5-15M PRN Rx Instructions: do not exceed 3 doses per episode Follow Up/Referrals: Provider,Not a Local [Primary Care Provider] - Stand Alone Forms: [facility] Info Instructions
[2022-06-04 20:32] LABS: Lipase* 220 U/L (23-300)
== END 2022-06-04 21:34 | disposition home or self-care (01) ==
PROVIDERS: Emergency Provider Emergency Medicine
DX: R07.9 Chest pain, unspecified (principal); R94.5 Abnormal results of liver function studies
CPT/HCPCS: 36415; 71045; 71260; 74177; 80048; 80076; 83690; 83880; 84484; 85025; 85379; 86140; 93005; 94761; 99285; Q9967

== ENCOUNTER 2023-03-12 21:47 | Outpatient (CLI) | payer MEDICARE, OTHER, SELFPAY | END 2023-03-12 21:48 | disposition home or self-care (01) | LOC: AMB 03-16 19:25 | PROVIDERS: PCP Student in an Organized Health Care Education/Training Program; Visit Provider Family Medicine | DX: R55 Syncope and collapse (principal) | CPT/HCPCS: A0425; A0427 ==

== ENCOUNTER 2023-03-12 22:33 | Inpatient (IN) | payer MEDICARE, OTHER, SELFPAY ==
[2023-03-12] VITALS (20 sets, daily range): BP systolic 126–191; BP diastolic 71–106; PULSE 75–97; RESP 16–26; TEMP 36.3; O2SAT 84–98
--- NOTE | 2023-03-12 22:50 | CRLHL7_ITS ---
For Patients: As a result of the Century Cures Act, medical imaging exams and procedure reports are released immediately into your electronic medical record. You may view this report before your referring provider. If you have questions, please contact your health care provider. INDICATION: Agitation, altered mental status, evaluate for stroke. TECHNIQUE: Multiplanar CT examination of the head was performed without the use of intravenous contrast. COMPARISON: None. FINDINGS: No loss of lawson-white differentiation suggestive of recent territorial infarct. Multifocal encephalomalacia involving the right frontal, left greater than right bioccipital and left high parietal lobes. Chronic lacunar infarcts within the bilateral cerebellar hemispheres, and right subinsular region No intracranial hemorrhage, abnormal extra-axial fluid collection or midline shift. The ventricles and cerebral sulci are promise in caliber, compatible with mild to moderate generalized parenchymal volume loss. Severe patchy periventricular hypoattenuation and pontine billing, nonspecific but compatible with chronic microvascular ischemic changes. The basal cisterns are patent. Atherosclerotic calcifications of the intracranial vasculature. No hyperdense MCA sign. Scattered sinus mucosal thickening. The mastoid air cells are clear. The visualized orbits and calvarium are unremarkable. The cerebellar tonsils are in normal position. IMPRESSION: No recent territorial infarct, intracranial hemorrhage or midline shift. 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 [id number] generalized parenchymal volume loss with severe chronic microvascular ischemic changes. Findings were discussed with Dr. Calixto at 11:46 PM on 03/12/2023. Please note that all CT scans at this facility use dose modulation, iterative reconstruction, and/or weight-based dosing when appropriate to reduce radiation dose to as low as reasonably achievable. Dictated by Ford Rothman MD @ 03/12/2023 11:48:27 PM (Electronically Signed)
[2023-03-12] MEDS: KETAMINE HCL 100 MG/ML inj 50 MG IVP (23:02)
--- NOTE | 2023-03-12 23:02 | CRLHL7_ITS ---
For Patients: As a result of the Cures Act, medical imaging exams and procedure reports are released immediately into your electronic medical record. You may view this report before your referring provider. If you have questions, please contact your health care provider. INDICATION: Altered mental status. TECHNIQUE: Chest radiographs, 1 view. COMPARISON: Prior CTA and chest radiograph from 2021 are inaccessible in PACS at time of dictation. FINDINGS: Lines/Tubes/Devices: None. Mediastinum: Magnified cardiac silhouette. No widening of the superior mediastinum. Atherosclerotic calcifications of the aortic arch, appear slightly medialized. Lungs: Linear bandlike opacifications of the lung bases likely due to subsegmental atelectasis and/or scarring. Hazy opacification of the right lung base. Bilateral veil like haziness of the lung butler likely due to overlying soft tissues. Probable emphysematous changes. Pleura: No pleural effusions or pneumothorax. Bones: No acute osseous abnormalities. IMPRESSION: 1. Ill-defined hazy opacification of the right lung base, may represent atelectasis or a developing pneumonia in the appropriate clinical setting. 2. There is questionable medialization of the atherosclerotic calcifications of the aortic arch, raising the possibility of an underlying dissection. Comparison with prior imaging, if available, would be beneficial. If clinically warranted, consider CTA for further evaluation. Dictated by Ford Rothman MD @ 03/12/2023 11:59:41 PM (Electronically Signed)
--- NOTE | 2023-03-12 23:10 | ED_ITS ---
HPI - General Adult General Date Seen: 03/12/23 <Clover Wolf MD - Last Filed: 03/14/23 01:22> Chief complaint: Neuro Symptoms/Altered Deficit <Clover Wolf MD - Last Filed: 03/14/23 01:22> Stated complaint: unresponsive <Clover Wolf MD - Last Filed: 03/14/23 01:22> Time Seen by Provider: 03/12/23 23:02 <Clover Wolf MD - Last Filed: 03/14/23 01:22> Source: patient, family, EMS and RN notes reviewed <Clover Wolf MD - Last Filed: 03/14/23 01:22> Mode of arrival: EMS <Clover Wolf MD - Last Filed: 03/14/23 01:22> Limitations: altered mental status <Clover Wolf MD - Last Filed: 03/14/23 01:22> History of Present Illness HPI narrative: Familia is an 82-year-old male brought in by EMS and called head is being comb ative. EMS reported that Familia was watching TV with his when suddenly at 9:30 a.m. fell over backward and was breathing funny. He was not responding to her reportedly from EMS. She is not here at the time he initially arrives. He is grabbing at things moving about, is not talking to me. Reportedly got 5 mg of Versed and then just 3-4 mg prior to arrival 2.5 mg droperidol. He started moving and was not directable in the ambulance. He scraped his knee up on the monitor over him. He scraped 1 of his elbows as well. They could not get him to settle down. On arrival there is a patient moving about arms reaching into the air. He is breathing independently. His glucose was I believe somewhere around 100. He has some hypertension with blood pressure is 1 80-200 systolic initially. Initially his oxygen was 84-85% with a good waveform, face mask oxygen was applied with good recovery. Pulse was stable, not tachycardic or bradycardic. He was afebrile. Concern for this patient being neurologic certainly did exist but there was conceivably no way to get a CT with his current state. We were giving him oxygen, getting IV access, getting a point of care troponin and EKG while drawing up medicines for RSI. Patient did then start speaking to me. I asked if he knew where he was and he stated he was in the hospital. He was stating he wanted to be moved up on the bed. We initially had to put restraints on him as there was no directing him and he was moving about. We were able to take the arm restraints off. He was still a bit fidgety moving in the bed and trying to boost himself despite us doing it. Rather than RSI and intubation, I made the decision to attempt a trial of low-dose IV ketamine just for some sedative so that we could get through a head CT. He did have some snoring breathing, this resolved with jaw thrust and his O2 sats went from low 90s to mid upper 90s, I did maintained this through his CT. Will need to get further history from his . EMS did obtain code status from his prior to leaving, he is full code. <Clover Wolf MD - Last Filed: 03/14/23 01:22> Related Data Home medications: Home Medications Medication Instructions Recorded Confirmed amlodipine 2.5 mg tablet 1.25 mg PO DAILY 06/04/22 03/12/23 aspirin 325 mg tablet (Nora 325 mg PO DAILY 06/04/22 03/12/23 Aspirin) carvedilol 12.5 mg tablet 12.5 mg PO BID 06/04/22 03/13/23 finasteride 5 mg tablet 5 mg PO DAILY 06/04/22 03/12/23 losartan 100 1 tab PO DAILY 06/04/22 03/12/23 mg-hydrochlorothiazide 25 mg tablet nitroglycerin 0.4 mg sublingual 0.4 mg sublingual Q5M PRN 06/04/22 03/13/23 tablet rosuvastatin 10 mg tablet 10 mg PO HS 06/04/22 03/13/23 sertraline 50 mg tablet 50 mg PO DAILY 06/04/22 03/13/23 tamsulosin 0.4 mg capsule 0.4 mg PO DAILY 06/04/22 03/13/23 zolpidem 10 mg tablet 10 mg PO HS 06/04/22 03/13/23 tramadol 50 mg tablet 50 mg PO 3XD 03/12/23 03/12/23 <Clover Wolf MD - Last Filed: 03/14/23 01:22> Allergies/adverse reactions: Allergies Allergy/AdvReac Type Severity Reaction Status Date / Time No Known Drug Allergies Allergy Verified 10/19/22 17:13 <Clover Wolf MD - Last Filed: 03/14/23 01:22> Review of Systems Status of ROS: Reports: unobtainable due to mental status <Clover Wolf MD - Last Filed: 03/14/23 01:22> PFSH PFS Family History: Family History (Updated 03/13/23 @ 04:05 by Power Harding DO) Father Suicide <Clover Wolf MD - Last Filed: 03/14/23 01:22> Social History: Social History What is your current living situation?: I presently have a place to live Problems where you live: no known problems Problems where you live details: n/a In the past 12 months, utilities in danger of being shut off: no In past 12 months, lack of transportation kept you from medical appts, meetings, work, or getting things needed for daily living: no In the past 12 mos, have been you worried that your food would run out before you had money to buy more?: never true In the past 12 mos, the food you bought just didn't last and you didn't have money to buy more?: never true Highest level of school completed/degree received: some college, no degree Smoking Status: Former smoker Do you use any of these nicotine containing products: None Second hand tobacco smoke exposure: No How often do you have a drink containing alcohol: never How often do you have six or more drinks on one occasion: Never AUDIT-C Alcohol total score: 0 Non-prescribed substance use: denies use Caffeine: Yes How often does anyone, including family, friends and others, physically hurt you : never How often does anyone, including family, friends and others, insult or talk down to you: never How often does anyone, including family, friends and others, threaten you with harm: never How often does anyone, including family, friends and others, scream or curse at you: never service: No <Clover Wolf MD - Last Filed: 03/14/23 01:22> Exam Const: Vital Signs, click to edit/add: Vital Signs - 24 hr 03/13/23 01:30 03/13/23 01:32 03/13/23 01:42 Temperature Pulse Rate 71 73 69 Pulse Rate [Pulse Oximeter] Respiratory Rate Blood Pressure 176/85 H 159/88 H Blood Pressure [Le ft Arm] Pulse Oximetry 97 98 97 Oxygen Delivery Me thod Oxygen Flow Rate 03/13/23 01:45 03/13/23 01:52 03/13/23 02:00 Temperature Pulse Rate 69 68 64 Pulse Rate [Pulse Oximeter] Respiratory Rate Blood Pressure 144/77 H Blood Pressure [Le ft Arm] Pulse Oximetry 98 96 97 Oxygen Delivery Me thod Oxygen Flow Rate 03/13/23 02:02 03/13/23 02:13 03/13/23 02:15 Temperature Pulse Rate 65 61 64 Pulse Rate [Pulse Oximeter] Respiratory Rate Blood Pressure 123/71 128/70 Blood Pressure [Le ft Arm] Pulse Oximetry 96 97 96 Oxygen Delivery Me thod Oxygen Flow Rate 03/13/23 02:22 03/13/23 03:52 03/13/23 04:08 Temperature 97.4 F L Pulse Rate 63 57 L Pulse Rate [Pulse Oximeter] 62 Respiratory Rate 18 Blood Pressure 151/78 H Blood Pressure [Le ft Arm] 188/91 H Pulse Oximetry 97 96 Oxygen Delivery Me thod Nasal Cannula Oxygen Flow Rate 1.0 03/13/23 07:00 03/13/23 07:00 Temperature 97.6 F Pulse Rate Pulse Rate [Pulse Oximeter] 64 64 Respiratory Rate 18 18 Blood Pressure Blood Pressure [Le ft Arm] 189/94 H Pulse Oximetry 95 Oxygen Delivery Me thod Room Air Oxygen Flow Rate 82-year-old male on arrival moving about , not directable initially. Lungs actually were clear, good air entry, no tachypnea. CV regular rate and rhythm, no murmur, normal S1 and S2. Abdomen was soft, did not seem to have pain when I palpated, could feel no masses. Pupils were equal small, conjugate gaze, sclera clear, face atraumatic. When he did speak later his speech was normal, although he was not excessively verbose. No neck masses noted. He had superficial abrasions over his right knee. Was moving arms and legs when he came in, could not get a directed neurologic exam on him. He was breathing independently initially I would have maybe scored his GCS about 11 until he started talking to me which would put him maybe at about a 13, he did know he was at the hospital but still question his overall lucidity to current date and time and events. <Clover Wolf MD - Last Filed: 03/14/23 01:22> Vital Signs, click to edit/add: Vital Signs - 24 hr 03/13/23 01:30 03/13/23 01:32 03/13/23 01:42 Temperature Pulse Rate 71 73 69 Pulse Rate [Pulse Oximeter] Respiratory Rate Blood Pressure 176/85 H 159/88 H Blood Pressure [Le ft Arm] Pulse Oximetry 97 98 97 Oxygen Delivery Me thod Oxygen Flow Rate 03/13/23 01:45 03/13/23 01:52 03/13/23 02:00 Temperature Pulse Rate 69 68 64 Pulse Rate [Pulse Oximeter] Respiratory Rate Blood Pressure 144/77 H Blood Pressure [Le ft Arm] Pulse Oximetry 98 96 97 Oxygen Delivery Me thod Oxygen Flow Rate 03/13/23 02:02 03/13/23 02:13 03/13/23 02:15 Temperature Pulse Rate 65 61 64 Pulse Rate [Pulse Oximeter] Respiratory Rate Blood Pressure 123/71 128/70 Blood Pressure [Le ft Arm] Pulse Oximetry 96 97 96 Oxygen Delivery Me thod Oxygen Flow Rate 03/13/23 02:22 03/13/23 03:52 03/13/23 04:08 Temperature 97.4 F L Pulse Rate 63 57 L Pulse Rate [Pulse Oximeter] 62 Respiratory Rate 18 Blood Pressure 151/78 H Blood Pressure [Le ft Arm] 188/91 H Pulse Oximetry 97 96 Oxygen Delivery Me thod Nasal Cannula Oxygen Flow Rate 1.0 03/13/23 07:00 03/13/23 07:00 Temperature 97.6 F Pulse Rate Pulse Rate [Pulse Oximeter] 64 64 Respiratory Rate 18 18 Blood Pressure Blood Pressure [Le ft Arm] 189/94 H Pulse Oximetry 95 Oxygen Delivery Me thod Room Air Oxygen Flow Rate <Rosette Myles MD - Last Filed: 03/13/23 02:11> Documenting provider has reviewed patient's vital signs: yes <Clover Wolf MD - Last Filed: 03/14/23 01:22> Course Course ED Course: After CT was obtained, patient was brought back over to roommate, appropriate cardiac monitoring, pulse oximetry. Will get full complement of labs including urinalysis, will obtain a portable chest x-ray, await stat head CT report. <Clover Wolf MD - Last Filed: 03/14/23 01:22> Reevaluation(s) Time of Reevaluation #1: 23:43 <Clover Wolf MD - Last Filed: 03/14/23 01:22> Reevaluation #1: Spoke with patient's , patient is conversive, does not remember events of tonight. He is still confused at times, continuing to want to be boosted up. He does note his , hangs onto her hand. She does give me history that supports seizure. While watching TV, she heard him make some funny noises, looked to see him have his legs straight and stiffly out, fell backwards and arms were flexed and moving some. She states his legs were just stiff as a board. <Clover Wolf MD - Last Filed: 03/14/23 01:22> Time of Reevaluation #2: 02:07 <Rosette Myles MD - Last Filed: 03/13/23 02:11> Reevaluation #2: Soak with hospital team, admission accepted. Reviewed CT findings with patient and . Patient sleepy at this point but verbalizes understanding and agreement of chronic changes noted on aortic CT. Neurology recommending MRI, admission per my outgoing partner. I did over here their conversation but I do not believe she documented it. They did not have a recommendation for starting any anti seizure medications yet per my outgoing partner. Chances are will need Keppra prior to discharge. Neurology ask that we touch base with them following MRI.. He was able to get the CT scan of the chest abdomen pelvis without any additional sedation. His delirium does appear to be improving significantly at this time. At this time, he is still just very fatigued but will follow commands upon request. I do not appreciate any obvious focal neurological deficit on my brief and limited exam. <Rosette Myles MD - Last Filed: 03/13/23 02:11> Consultations Consultation #1: Did speak with Dr. Zabala and he does not recommend antiseizure medications at this time with this being his 1st episode. He did recommend doing an MRI with and without contrast of his brain tomorrow/when able. Just prior to talking to him, got a call from [facility] that the chest x-ray report was in. There was concern for possible dissection. Have subsequently ordered dissection protocol CT. <Clover Wolf MD - Last Filed: 03/14/23 01:22> Time: 00:04 <Clover Wolf MD - Last Filed: 03/14/23 01:22> Vital Signs Vital signs: Initial Vital Signs Respiratory Rate 16 03/12/23 22:30 Respiratory Effort Normal, Spontaneous, Non-Labored 03/12/23 22:30 Respiratory Depth Normal 03/12/23 22:30 Respiratory Pattern Normal 03/12/23 22:30 Vital Signs Respiratory Rate 16 03/12/23 22:30 Temperature 97.6 F 03/13/23 23:00 Pulse Rate 66 03/13/23 23:00 Respiratory Rate 20 03/13/23 23:00 Blood Pressure 152/86 H 03/13/23 23:00 Pulse Oximetry 92 03/13/23 23:00 Oxygen Delivery Method Room Air 03/13/23 23:00 Oxygen Flow Rate 1 03/13/23 21:44 <Clover Wolf MD - Last Filed: 03/14/23 01:22> Initial Vital Signs Respiratory Rate 16 03/12/23 22:30 Respiratory Effort Normal, Spontaneous, Non-Labored 03/12/23 22:30 Respiratory Depth Normal 03/12/23 22:30 Respiratory Pattern Normal 03/12/23 22:30 Vital Signs Respiratory Rate 16 03/12/23 22:30 Temperature 97.6 F 03/13/23 23:00 Pulse Rate 66 03/13/23 23:00 Respiratory Rate 20 03/13/23 23:00 Blood Pressure 152/86 H 03/13/23 23:00 Pulse Oximetry 92 03/13/23 23:00 Oxygen Delivery Method Room Air 03/13/23 23:00 Oxygen Flow Rate 1 03/13/23 21:44 <Rosette Myles MD - Last Filed: 03/13/23 02:11> Medical Decision Making Medical Records Medical records narrative: The hospitalists had looked up some of his records. Patient reportedly has underlying atherosclerotic coronary vascular disease. Had a history of CVA in 2004. He was also able to tell me that on 02/23/2023 patient's sodium was 129. Thus, a sodium of 125 it is likely not the full causative etiology of his seizure tonight. <Clover Wolf MD - Last Filed: 03/14/23 01:22> Lab Data Lab results reviewed: Yes I reviewed the patient's lab results <Clover Wolf MD - Last Filed: 03/14/23 01:22> Labs: Lab Results 03/12/23 03/12/23 03/12/23 Range/Units 22:38 22:50 23:14 WBC 8.66 (4.50-11.00) K/uL RBC 4.31 (4.30-5.90) m/uL Hgb 13.1 L (13.5-17.5) gm/dL Hct 37.4 (37.0-53.0) % MCV 87 (80-100) fL MCH 30 (26-34) pg MCHC 35 (32-36) gm/dL RDW Coeff of Radha 12.0 (11.5-15.5) % Plt Count 193 (140-440) K/uL Neut % (Auto) 66.0 (42.0-72.0) % Lymph % (Auto) 12.6 L (20-44) % Canadian % (Auto) 14.2 H (0.0-11.0) % Eos % (Auto) 5.7 (0.0-7.0) % Baso % (Auto) 0.6 (0.0-3.0) % Neut # (Auto) 5.72 (1.7-7.0) K/uL Lymph # (Auto) 1.10 (0.90-2.90) K/uL Canadian # (Auto) 1.20 H (0.00-0.90) K/UL Eos # (Auto) 0.49 (0.00-0.50) K/uL Baso # (Auto) 0.05 (0.00-0.30) K/uL Abs Immat Gran (auto) 0.08 (0.00-0.30) K/uL Imm/Tot Granulo (auto) 0.9 % ESR 12 (2-15) mm/hr VBG pH 7.443 H (7.32-7.43) VBG pCO2 40 (40-50) mmHG VBG pO2 56.0 H (25-47) mmHG VBG HCO3 28 (21-28) mmol/L Sodium 125 L (135-149) mmol/L Potassium 4.2 (3.6-5.1) mmol/L Chloride 92 L (96-114) mmol/L Carbon Dioxide 25 (20-32) mmol/L Anion Gap 8 (7-15) mEq/L BUN 27 (7-30) mg/dL Creatinine 1.4 (0.5-1.5) mg/dL Estimated GFR 50 ml/min Glucose 104 (60-115) mg/dL Lactate 2.8 H (0.5-1.9) mmol/L Calcium 10.0 (8.4-10.6) mg/dL Magnesium 2.2 (1.5-2.6) mg/dL Total Bilirubin 0.5 (0.1-1.5) mg/dL AST 30 (12-35) U/L ALT 19 (4-50) U/L Alkaline Phosphatase 142 (40-150) U/L C-Reactive Protein < 0.5 L (0.5-1.0) mg/dL Total Protein 7.3 (6.0-8.3) g/dL Albumin 4.3 (3.3-5.0) g/dL Procalcitonin 0.09 (<0.50) ng/mL TSH (0.270-4.200) uIU/mL Urine Color (Yellow) Urine Appearance (Clear) Urine pH (5.0-8.5) Ur Specific [place] (1.000-1.030) Urine Protein (Negative) Urine Glucose (UA) (Negative) Urine Ketones (Negative) Urine Blood (Negative) Urine Nitrite (Negative) Urine Bilirubin (Negative) Urine Urobilinogen (0.2-1.0) Ur Leukocyte Esterase (Negative) Urine RBC (0-2) Urine WBC (0-5) Ur Squamous Epith Cells (None-Few) Urine Bacteria (None) Urine Opiates Screen (Negative) Ur Oxycodone Screen (Negative) Urine Methadone Screen (Negative) Ur Propoxyphene Screen (Negative) Acetaminophen < 10.0 L (10.0-30.0) ug/mL Ur Barbiturates Screen (Negative) U Tricyclic Antidepress (Negative) Ur Phencyclidine Scrn (Negative) Ur Amphetamines Screen (Negative) U Methamphetamines Scrn (Negative) U Benzodiazepines Scrn (Negative) Urine Cocaine Screen (Negative) U Marijuana (THC) Screen (Negative) Ur Drug Screen Comment Ethyl Alcohol < 0.01 L (0.01-0.03) % SARS-CoV-2 (PCR) Negative SARS-CoV-2 (Negative) Influenza Type A (PCR) Negative PCR FLU A (Negative) Influenza Type B (PCR) Negative PCR FLU B (Negative) RSV (PCR) Negative PCR RSV (Negative) POC Troponin I 0.02 (0.01-0.04) ng/ml 03/12/23 03/13/23 Range/Units 23:15 05:05 WBC (4.50-11.00) K/uL RBC (4.30-5.90) m/uL Hgb (13.5-17.5) gm/dL Hct (37.0-53.0) % MCV (80-100) fL MCH (26-34) pg MCHC (32-36) gm/dL RDW Coeff of Radha (11.5-15.5) % Plt Count (140-440) K/uL Neut % (Auto) (42.0-72.0) % Lymph % (Auto) (20-44) % Canadian % (Auto) (0.0-11.0) % Eos % (Auto) (0.0-7.0) % Baso % (Auto) (0.0-3.0) % Neut # (Auto) (1.7-7.0) K/uL Lymph # (Auto) (0.90-2.90) K/uL Canadian # (Auto) (0.00-0.90) K/UL Eos # (Auto) (0.00-0.50) K/uL Baso # (Auto) (0.00-0.30) K/uL Abs Immat Gran (auto) (0.00-0.30) K/uL Imm/Tot Granulo (auto) % ESR (2-15) mm/hr VBG pH (7.32-7.43) VBG pCO2 (40-50) mmHG VBG pO2 (25-47) mmHG VBG HCO3 (21-28) mmol/L Sodium 124 L* (135-149) mmol/L Potassium (3.6-5.1) mmol/L Chloride (96-114) mmol/L Carbon Dioxide (20-32) mmol/L Anion Gap (7-15) mEq/L BUN (7-30) mg/dL Creatinine (0.5-1.5) mg/dL Estimated GFR ml/min Glucose (60-115) mg/dL Lactate 0.8 (0.5-1.9) mmol/L Calcium (8.4-10.6) mg/dL Magnesium (1.5-2.6) mg/dL Total Bilirubin (0.1-1.5) mg/dL AST (12-35) U/L ALT (4-50) U/L Alkaline Phosphatase (40-150) U/L C-Reactive Protein (0.5-1.0) mg/dL Total Protein (6.0-8.3) g/dL Albumin (3.3-5.0) g/dL Procalcitonin (<0.50) ng/mL TSH 2.680 (0.270-4.200) uIU/mL Urine Color Yellow (Yellow) Urine Appearance Clear (Clear) Urine pH 7.0 (5.0-8.5) Ur Specific [place] 1.020 (1.000-1.030) Urine Protein 2+ A (Negative) Urine Glucose (UA) Negative (Negative) Urine Ketones Negative (Negative) Urine Blood Trace-intact A (Negative) Urine Nitrite Negative (Negative) Urine Bilirubin Negative (Negative) Urine Urobilinogen 0.2 (0.2-1.0) Ur Leukocyte Esterase Negative (Negative) Urine RBC 0-2 (0-2) Urine WBC 0-2 (0-5) Ur Squamous Epith Cells None (None-Few) Urine Bacteria None (None) Urine Opiates Screen Negative (Negative) Ur Oxycodone Screen Negative (Negative) Urine Methadone Screen Negative (Negative) Ur Propoxyphene Screen Negative (Negative) Acetaminophen (10.0-30.0) ug/mL Ur Barbiturates Screen Negative (Negative) U Tricyclic Antidepress Negative (Negative) Ur Phencyclidine Scrn Negative (Negative) Ur Amphetamines Screen Negative (Negative) U Methamphetamines Scrn Negative (Negative) U Benzodiazepines Scrn Negative (Negative) Urine Cocaine Screen Negative (Negative) U Marijuana (THC) Screen Negative (Negative) Ur Drug Screen Comment See Note Ethyl Alcohol (0.01-0.03) % SARS-CoV-2 (PCR) (Negative) Influenza Type A (PCR) (Negative) Influenza Type B (PCR) (Negative) RSV (PCR) (Negative) POC Troponin I (0.01-0.04) ng/ml <Clover Wolf MD - Last Filed: 03/14/23 01:22> Lab Results 03/12/23 03/12/23 03/12/23 Range/Units 22:38 22:50 23:14 WBC 8.66 (4.50-11.00) K/uL RBC 4.31 (4.30-5.90) m/uL Hgb 13.1 L (13.5-17.5) gm/dL Hct 37.4 (37.0-53.0) % MCV 87 (80-100) fL MCH 30 (26-34) pg MCHC 35 (32-36) gm/dL RDW Coeff of Radha 12.0 (11.5-15.5) % Plt Count 193 (140-440) K/uL Neut % (Auto) 66.0 (42.0-72.0) % Lymph % (Auto) 12.6 L (20-44) % Canadian % (Auto) 14.2 H (0.0-11.0) % Eos % (Auto) 5.7 (0.0-7.0) % Baso % (Auto) 0.6 (0.0-3.0) % Neut # (Auto) 5.72 (1.7-7.0) K/uL Lymph # (Auto) 1.10 (0.90-2.90) K/uL Canadian # (Auto) 1.20 H (0.00-0.90) K/UL Eos # (Auto) 0.49 (0.00-0.50) K/uL Baso # (Auto) 0.05 (0.00-0.30) K/uL Abs Immat Gran (auto) 0.08 (0.00-0.30) K/uL Imm/Tot Granulo (auto) 0.9 % ESR 12 (2-15) mm/hr VBG pH 7.443 H (7.32-7.43) VBG pCO2 40 (40-50) mmHG VBG pO2 56.0 H (25-47) mmHG VBG HCO3 28 (21-28) mmol/L Sodium 125 L (135-149) mmol/L Potassium 4.2 (3.6-5.1) mmol/L Chloride 92 L (96-114) mmol/L Carbon Dioxide 25 (20-32) mmol/L Anion Gap 8 (7-15) mEq/L BUN 27 (7-30) mg/dL Creatinine 1.4 (0.5-1.5) mg/dL Estimated GFR 50 ml/min Glucose 104 (60-115) mg/dL Lactate 2.8 H (0.5-1.9) mmol/L Calcium 10.0 (8.4-10.6) mg/dL Magnesium 2.2 (1.5-2.6) mg/dL Total Bilirubin 0.5 (0.1-1.5) mg/dL AST 30 (12-35) U/L ALT 19 (4-50) U/L Alkaline Phosphatase 142 (40-150) U/L C-Reactive Protein < 0.5 L (0.5-1.0) mg/dL Total Protein 7.3 (6.0-8.3) g/dL Albumin 4.3 (3.3-5.0) g/dL Procalcitonin 0.09 (<0.50) ng/mL TSH (0.270-4.200) uIU/mL Urine Color (Yellow) Urine Appearance (Clear) Urine pH (5.0-8.5) Ur Specific [place] (1.000-1.030) Urine Protein (Negative) Urine Glucose (UA) (Negative) Urine Ketones (Negative) Urine Blood (Negative) Urine Nitrite (Negative) Urine Bilirubin (Negative) Urine Urobilinogen (0.2-1.0) Ur Leukocyte Esterase (Negative) Urine RBC (0-2) Urine WBC (0-5) Ur Squamous Epith Cells (None-Few) Urine Bacteria (None) Urine Opiates Screen (Negative) Ur Oxycodone Screen (Negative) Urine Methadone Screen (Negative) Ur Propoxyphene Screen (Negative) Acetaminophen < 10.0 L (10.0-30.0) ug/mL Ur Barbiturates Screen (Negative) U Tricyclic Antidepress (Negative) Ur Phencyclidine Scrn (Negative) Ur Amphetamines Screen (Negative) U Methamphetamines Scrn (Negative) U Benzodiazepines Scrn (Negative) Urine Cocaine Screen (Negative) U Marijuana (THC) Screen (Negative) Ur Drug Screen Comment Ethyl Alcohol < 0.01 L (0.01-0.03) % SARS-CoV-2 (PCR) Negative SARS-CoV-2 (Negative) Influenza Type A (PCR) Negative PCR FLU A (Negative) Influenza Type B (PCR) Negative PCR FLU B (Negative) RSV (PCR) Negative PCR RSV (Negative) POC Troponin I 0.02 (0.01-0.04) ng/ml 03/12/23 03/13/23 Range/Units 23:15 05:05 WBC (4.50-11.00) K/uL RBC (4.30-5.90) m/uL Hgb (13.5-17.5) gm/dL Hct (37.0-53.0) % MCV (80-100) fL MCH (26-34) pg MCHC (32-36) gm/dL RDW Coeff of Radha (11.5-15.5) % Plt Count (140-440) K/uL Neut % (Auto) (42.0-72.0) % Lymph % (Auto) (20-44) % [place] % (Auto) (0.0-11.0) % Eos % (Auto) (0.0-7.0) % Baso % (Auto) (0.0-3.0) % Neut # (Auto) (1.7-7.0) K/uL Lymph # (Auto) (0.90-2.90) K/uL [place] # (Auto) (0.00-0.90) K/UL Eos # (Auto) (0.00-0.50) K/uL Baso # (Auto) (0.00-0.30) K/uL Abs Immat Gran (auto) (0.00-0.30) K/uL Imm/Tot Granulo (auto) % ESR (2-15) mm/hr VBG pH (7.32-7.43) VBG pCO2 (40-50) mmHG VBG pO2 (25-47) mmHG VBG HCO3 (21-28) mmol/L Sodium 124 L* (135-149) mmol/L Potassium (3.6-5.1) mmol/L Chloride (96-114) mmol/L Carbon Dioxide (20-32) mmol/L Anion Gap (7-15) mEq/L BUN (7-30) mg/dL Creatinine (0.5-1.5) mg/dL Estimated GFR ml/min Glucose (60-115) mg/dL Lactate 0.8 (0.5-1.9) mmol/L Calcium (8.4-10.6) mg/dL Magnesium (1.5-2.6) mg/dL Total Bilirubin (0.1-1.5) mg/dL AST (12-35) U/L ALT (4-50) U/L Alkaline Phosphatase (40-150) U/L C-Reactive Protein (0.5-1.0) mg/dL Total Protein (6.0-8.3) g/dL Albumin (3.3-5.0) g/dL Procalcitonin (<0.50) ng/mL TSH 2.680 (0.270-4.200) uIU/mL Urine Color Yellow (Yellow) Urine Appearance Clear (Clear) Urine pH 7.0 (5.0-8.5) Ur Specific [place] 1.020 (1.000-1.030) Urine Protein 2+ A (Negative) Urine Glucose (UA) Negative (Negative) Urine Ketones Negative (Negative) Urine Blood Trace-intact A (Negative) Urine Nitrite Negative (Negative) Urine Bilirubin Negative (Negative) Urine Urobilinogen 0.2 (0.2-1.0) Ur Leukocyte Esterase Negative (Negative) Urine RBC 0-2 (0-2) Urine WBC 0-2 (0-5) Ur Squamous Epith Cells None (None-Few) Urine Bacteria None (None) Urine Opiates Screen Negative (Negative) Ur Oxycodone Screen Negative (Negative) Urine Methadone Screen Negative (Negative) Ur Propoxyphene Screen Negative (Negative) Acetaminophen (10.0-30.0) ug/mL Ur Barbiturates Screen Negative (Negative) U Tricyclic Antidepress Negative (Negative) Ur Phencyclidine Scrn Negative (Negative) Ur Amphetamines Screen Negative (Negative) U Methamphetamines Scrn Negative (Negative) U Benzodiazepines Scrn Negative (Negative) Urine Cocaine Screen Negative (Negative) U Marijuana (THC) Screen Negative (Negative) Ur Drug Screen Comment See Note Ethyl Alcohol (0.01-0.03) % SARS-CoV-2 (PCR) (Negative) Influenza Type A (PCR) (Negative) Influenza Type B (PCR) (Negative) RSV (PCR) (Negative) POC Troponin I (0.01-0.04) ng/ml <Rosette Myles MD - Last Filed: 03/13/23 02:11> Imaging Data CT scan - head: Attestation: I have reviewed the pertinent imaging results. <Clover Cottrell MD - Last Filed: 03/14/23 01:22> Radiologist's impression: Patient: [facility] Facility:?[facility] Patient ID:?[id number] Site Patient ID:?[id number]. Site :?[id number] Study:?CT Head W/O STROKE PROTOCOL-03/12/2023 11:07:26 PM Ordering Physician:Sridhar Waldron Final Report: INDICATION: Agitation, altered mental status, evaluate for stroke. TECHNIQUE: Multiplanar CT examination of the head was performed without the use of intravenous contrast. COMPARISON: None. FINDINGS: No loss of lawson-white differentiation suggestive of recent territorial infarct. Multifocal encephalomalacia involving the right frontal, left greater than right bioccipital and left high parietal lobes. Chronic lacunar infarcts within the bilateral cerebellar hemispheres, and right subinsular region No intracranial hemorrhage, abnormal extra-axial fluid collection or midline shift. The ventricles and cerebral sulci are promise in caliber, compatible with mild to moderate generalized parenchymal volume loss. Severe patchy periventricular hypoattenuation and pontine billing, nonspecific but compatible with chronic microvascular ischemic changes. The basal cisterns are patent. Atherosclerotic calcifications of the intracranial vasculature. No hyperdense MCA sign. Scattered sinus mucosal thickening. The mastoid air cells are clear. The visualized orbits and calvarium are unremarkable. The cerebellar tonsils are in normal position. IMPRESSION: No recent territorial infarct, intracranial hemorrhage or midline shift. 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 [id number]-mb-pizywmbt generalized parenchymal volume loss with severe chronic microvascular ischemic changes. Findings were discussed with Dr. Calixto at 11:46 PM on 03/12/2023. Please note that all CT scans at this facility use dose modulation, iterative reconstruction, and/or weight-based dosing when appropriate to reduce radiation dose to as low as reasonably achievable. Dictated by Ford Rothman MD @ 03/12/2023 11:48:27 PM (Electronic Signature) <Clover Wolf MD - Last Filed: 03/14/23 01:22> Chest x-ray: Attestation: I have reviewed the pertinent imaging results. <Clover Cottrell MD - Last Filed: 03/14/23 01:22> Radiologist's impression: Patient: [facility] Facility:?[facility] Patient ID:?[id number] Site Patient ID:?[id number]. Site :?[id number] Study:?XRay Chest portable one view -CODE TRAUMA-03/12/2023 11:33:13 PM Ordering Physician:?Maryann Galo Final Report: INDICATION: Altered mental status. TECHNIQUE: Chest radiographs, 1 view. COMPARISON: Prior CTA and chest radiograph from 2021 are inaccessible in PACS at time of dictation. FINDINGS: Lines/Tubes/Devices: None. Mediastinum: Magnified cardiac silhouette. No widening of the superior mediastinum. Atherosclerotic calcifications of the aortic arch, appear slightly medialized. Lungs: Linear bandlike opacifications of the lung bases likely due to subsegmental atelectasis and/or scarring. Hazy opacification of the right lung base. Bilateral veil like haziness of the lung butler likely due to overlying soft tissues. Probable emphysematous changes. Pleura: No pleural effusions or pneumothorax. Bones: No acute osseous abnormalities. IMPRESSION: 1. Ill-defined hazy opacification of the right lung base, may represent atelectasis or a developing pneumonia in the appropriate clinical setting. 2. There is questionable medialization of the atherosclerotic calcifications of the aortic arch, raising the possibility of an underlying dissection. Comparison with prior imaging, if available, would be beneficial. If clinically warranted, consider CTA for further evaluation. Dictated by Ford Rothman MD @ 03/12/2023 11:59:41 PM (Electronic Signature) <Clover Wolf MD - Last Filed: 03/14/23 01:22> CT Chest/Ab/Pelvis: Attestation: I have reviewed the pertinent imaging results. <Rosette Myles MD - Last Filed: 03/13/23 02:11> My impression: Mild aortic abnormality, uncertain significance <Rosette Myles MD - Last Filed: 03/13/23 02:11> Radiologist's impression: IMPRESSION: No acute intrathoracic or intra-abdominal/pelvic abnormality including aortic dissection as questioned. 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 Additional short-segment linear hypodensity along the descending thoracic aorta, possibly short-segment chronic dissection. Consider nonemergent outpatient vascular surgery consultation. Incidental 8 millimeter left upper lobe ground-glass nodule, possibly infectious/inflammatory in etiology. This could be followed up with dedicated CT chest in 6 months. Coronary artery calcifications. <Rosette Myles MD - Last Filed: 03/13/23 02:11> ECG Data Attestation: I personally reviewed and interpreted this ECG as follows: (Initial artifact, machine is reading atrial fibrillation but I question that as these are very regularly paced out QRS complexes in I do think AC P-waves. QT corrected 450 milliseconds.) <Clover Wolf MD - Last Filed: 03/14/23 01:22> Discharge Plan Discharge Clinical Impression: Acute delirium, New onset seizure <Clover Wolf MD - Last Filed: 03/14/23 01:22> Patient Disposition: Admitted As Observation <Clover Wolf MD - Last Filed: 03/14/23 01:22>
[2023-03-12 23:19] LABS: HCO3 VBG 28 mmol/L (21-28); Lactate* 2.8 mmol/L (0.5-1.9); PCO2 VBG 40 mmHG (40-50); pH VBG 7.443 (7.32-7.43)
[2023-03-12 23:20] LABS: Basophils Absolute Auto 0.05 K/uL (0.00-0.30); Basophils Percent Auto 0.6 % (0.0-3.0); Eosinophils Absolute Auto 0.49 K/uL (0.00-0.50); Eosinophils Percent Auto 5.7 % (0.0-7.0); Hematocrit 37.4 % (37.0-53.0); Hemoglobin* 13.1 gm/dL (13.5-17.5); Immature Granulocytes Abs Auto 0.08 K/uL (0.00-0.30); Immature Granulocytes Pct Auto 0.9 %; Lymphocytes Percent Auto 12.6 % (20-44); Mean Corpuscular HGB Conc 35 gm/dL (32-36); Mean Corpuscular Hemoglobin 30 pg (26-34); Mean Corpuscular Volume 87 fL (80-100); Monocytes Percent Auto 14.2 % (0.0-11.0); Neutrophils Absolute Auto 5.72 K/uL (1.7-7.0); Platelet Count* 193 K/uL (140-440); Red Blood Count 4.31 m/uL (4.30-5.90); White Blood Count* 8.66 K/uL (4.50-11.00)
[2023-03-12 23:20] LABS: Troponin, Point-of-Care* 0.02 ng/ml (0.01-0.04)
[2023-03-12 23:22] LABS: Albumin* 4.3 g/dL (3.3-5.0); Chloride* 92 mmol/L (96-114)
[2023-03-12 23:23] LABS: Potassium* 4.2 mmol/L (3.6-5.1); Slide Review Reflex No; Sodium* 125 mmol/L (135-149)
[2023-03-12 23:25] LABS: Bilirubin Total* 0.5 mg/dL (0.1-1.5); Creatinine* 1.4 mg/dL (0.5-1.5); Estimated Glomerular Filt Rate 50 ml/min; Ethanol* < 0.01 % (0.01-0.03); Magnesium* 2.2 mg/dL (1.5-2.6)
[2023-03-12 23:26] LABS: Appearance Urine Clear (Clear); Bilirubin Urine Negative (Negative); Blood Urine Trace-intact (Negative); Color Urine Yellow (Yellow); Glucose Urine Negative (Negative); Ketones Urine Negative (Negative); Leukocyte Esterase Urine Negative (Negative); Nitrite Urine Negative (Negative); Protein Urine 2+ (Negative); Urobilinogen Urine 0.2 (0.2-1.0)
[2023-03-12 23:26] LABS: Alanine Aminotransferase* 19 U/L (4-50); Alkaline Phosphatase* 142 U/L (40-150); Anion Gap 8 mEq/L (7-15); Aspartate Amino Transferase* 30 U/L (12-35); Blood Urea Nitrogen* 27 mg/dL (7-30); Carbon Dioxide* 25 mmol/L (20-32); Glucose* 104 mg/dL (60-115); Total Protein* 7.3 g/dL (6.0-8.3)
[2023-03-12] MEDS: 0.9 % SODIUM CHLORIDE 1000 ml 1,000 ML 500 ML IV (23:30)
[2023-03-12 23:31] LABS: Acetaminophen* < 10.0 ug/mL (10.0-30.0); C Reactive Protein* < 0.5 mg/dL (0.5-1.0)
[2023-03-12 23:33] LABS: Amphetamine Screen Urine Negative (Negative); Barbiturate Screen Urine Negative (Negative); Benzodiazepines Screen Urine Negative (Negative); Cannabinoid Screen Urine Negative (Negative); Cocaine Screen Urine Negative (Negative); Methadone Screen Urine Negative (Negative); Methamphetamines Screen Urine Negative (Negative); Opiate Screen Urine Negative (Negative); Oxycodone Screen Urine Negative (Negative); Phencyclidine Screen Urine Negative (Negative); Tricyclic Antidepressant Urine Negative (Negative)
[2023-03-12 23:39] LABS: RBC Urine 0-2 (0-2); WBC Urine 0-2 (0-5)
[2023-03-12 23:42] LABS: Procalcitonin* 0.09 ng/mL (<0.50)
[2023-03-13] VITALS (34 sets, daily range): BP systolic 123–192; BP diastolic 56–119; PULSE 57–78; RESP 16–22; TEMP 36.3–36.7; O2SAT 91–100; BMI 27.4
[2023-03-13] LABS: Erythrocyte SedimentationRate* 12 mm/hr (2-15)
--- NOTE | 2023-03-13 00:03 | CRLHL7_ITS ---
For Patients: As a result of the 21st Century Cures Act, medical imaging exams and procedure reports are released immediately into your electronic medical record. You may view this report before your referring provider. If you have questions, please contact your health care provider. INDICATION: Chest pain. TECHNIQUE: CT chest without contrast and CT chest, abdomen and pelvis acquired with 95 cc Omnipaque 350 IV contrast, dissection protocol. COMPARISON: None. FINDINGS: CHEST: Cardiovascular structures: The unenhanced images demonstrate no evidence of aortic intramural thrombus. Severe calcific and noncalcific atherosclerotic plaque. Thoracic aorta is normal in caliber without evidence of dissection. 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 Additional short-segment linear hypodensity along the descending thoracic aorta, possibly short-segment chronic dissection (series 9/image 71). Heart size is normal. Coronary artery calcifications. Mediastinum and agnieszka: No mass or adenopathy. Lungs and pleura: Scattered atelectasis. 8 millimeter left upper lobe ground-glass nodule. Lungs are clear. No pleural effusions. Chest wall and axilla: No mass or adenopathy. Bones: Unremarkable for age. ABDOMEN AND PELVIS: Liver: Unremarkable. Gallbladder and bile ducts: Unremarkable. Pancreas: Unremarkable. Spleen: Unremarkable. Adrenal glands: Unremarkable. Kidneys: Bilateral renal cysts. Additional hypodensities in both kidneys, too small to characterize. No hydronephrosis. GI tract: No bowel obstruction. Colonic diverticulosis without diverticulitis. Vascular structures: Severe aortoiliac arterial calcifications. Abdominal aorta is normal in caliber without evidence of dissection. Mesenteric arteries are patent. Lymph nodes: Unremarkable. Miscellaneous: Unremarkable. No free air or significant free fluid. Pelvic Organs: Prominent prostate gland with dystrophic calcifications. Mildly distended bladder with right bladder diverticulum. Bones: Left hip arthroplasty causing streak artifact. IMPRESSION: No acute intrathoracic or intra-abdominal/pelvic abnormality including aortic dissection as questioned. 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 Additional short-segment linear hypodensity along the descending thoracic aorta, possibly short-segment chronic dissection. Consider nonemergent outpatient vascular surgery consultation. Incidental 8 millimeter left upper lobe ground-glass nodule, possibly infectious/inflammatory in etiology. This could be followed up with dedicated CT chest in 6 months. Coronary artery calcifications. Please note that all CT scans at this facility use dose modulation, iterative reconstruction, and/or weight-based dosing when appropriate to reduce radiation dose to as low as reasonably achievable. Dictated by Manuel Culver MD @ 03/13/2023 1:41:14 AM (Electronically Signed)
[2023-03-13 00:07] LABS: PCR FLU A Negative PCR FLU A (Negative); PCR FLU B Negative PCR FLU B (Negative); PCR RSV Negative PCR RSV (Negative)
[2023-03-13 00:09] LABS: SARS PCR* Negative SARS-CoV-2 (Negative)
[2023-03-13] MEDS: ACETAMINOPHEN 500 MG TABLET 1000 MG PO (01:09)
--- NOTE | 2023-03-13 02:28 | ED.NURSE ---
patient going to [facility]. Nurse to nurse given to Ciarra BATES
--- NOTE | 2023-03-13 02:47 | PM.IMHP1 ---
Hospitalist- H&P: HPI History of Present Illness Date Seen: 03/13/23 Chief complaint: unresponsive Narrative: Familia Merrill? is seen as an Interactive Telehealth visit. ??Familia Merrill is A 82 year old male present to the ER via EMS for assessment after witness seizure activity at home. He was apparently sitting in his lounger at home when he became stiff in the extremities.? Per his Paula, he did not have tonic clonic activity. Thereafter he was quite combative and received 4 mg of versed from EMS enroute and required ketamine in the ER to allow for neuroimaging. CT head showed no evidence of acute infarct, hemorrhage or shift but did note chronic multifocal encephalomalacia and cerebellar chronic lacunar infarcts. Severe chronic microvascular ischemic changes were also noted.? Initial chest X-ray was concerning for mediastinal changes, CT clarified likely chronic lesion of the descending thoracic aorta. He denies recent illnesses, tobacco or alcohol use, medication changes or new medicines, new stressors or injuries. He has no issues with mobility normally. Workup negative for Covid/influenza/RSV.? Labs show sodium 125, lactate 2.8. Sinus rhythm on ECG.? The case was reviewed with neurology precision grinder who agreed that this was likely a first seizure activity and recommended admission for observation and MRI brain in the AM to determine further treatment. Review of Systems Status of ROS: Reports: 10 or more systems reviewed and unremarkable except as noted in History and below Narrative: Negative for fevers, chills, sweating, headache, dizziness, Lightheadedness, heartburn, chest pain, shortness of breath, cough, abdominal pain, nausea, vomiting, diarrhea, dysuria, peripheral edema or skin changes. He admits to occasional Constipation. The remainder of the review of systems is otherwise negative except as mentioned above the history of present Illness. [facility] Family History (Updated 03/13/23 @ 04:05 by Power Harding DO) Father Suicide Social History Smoking Status: Never smoker Do you use any of these nicotine containing products: None Second hand tobacco smoke exposure: No How often do you have a drink containing alcohol: never How often do you have six or more drinks on one occasion: Never AUDIT-C Alcohol total score: 0 Non-prescribed substance use: denies use service: No Meds Home Medications and Allergies Home Medications Medication Instructions Recorded Confirmed Type amlodipine 2.5 mg tablet 1.25 mg PO DAILY 06/04/22 03/12/23 History aspirin 325 mg tablet (Nora 325 mg PO DAILY 06/04/22 03/12/23 History Aspirin) carvedilol 12.5 mg tablet 12.5 mg PO DAILY 06/04/22 10/19/22 History finasteride 5 mg tablet 5 mg PO DAILY 06/04/22 03/12/23 History losartan 100 1 tab PO DAILY 06/04/22 03/12/23 History mg-hydrochlorothiazide 25 mg tablet nitroglycerin 0.4 mg sublingual 0.4 mg sublingual Q5-15M PRN 06/04/22 10/19/22 History tablet rosuvastatin 10 mg tablet 10 mg PO DAILY 06/04/22 03/12/23 History sertraline 50 mg tablet 50 mg PO Q24H 06/04/22 03/12/23 History tamsulosin 0.4 mg capsule 0.4 mg PO Q24H 06/04/22 10/19/22 History zolpidem 10 mg tablet 10 mg PO DAILY 06/04/22 03/12/23 History tramadol 50 mg tablet 50 mg PO 3XD 03/12/23 03/12/23 History Allergies Allergy/AdvReac Type Severity Reaction Status Date / Time No Known Drug Allergies Allergy Verified 10/19/22 17:13 Exam Narrative: Exam Narrative: GENERAL: ?vital signs reviewed, well developed and nourished, in no distress HEENT: pupils are equal round and reactive to light, extraocular movements are grossly within normal limits without nytagmus and oral mucosa is moist. NECK: Supple without lymphadenopathy or thyromegaly according to nursing staff examination observation HEART: Regular rate and rhythm ?? LUNGS: Clear to auscultation bilaterally with good air movement throughout ABDOMEN: Observation from nurse assisted exam, abdomen appears soft, nontender, and nondistended with Positive bowel sounds noted. EXTREMITIES: Bilateral lower extremity pitting edema, abrasions noted to right knee. SKIN:? Observed warm and dry with some generalized pallor NEURO: Alert, awake and oriented ?3. Answers all questions appropriately but slowly. Occasional shaking of head and extremities is chronic per spouse. PSYCH: ?Affect is fairly flat Const: Vital Signs, click to edit/add: Vital Signs - 24 hr 03/12/23 22:30 03/12/23 22:40 03/12/23 22:45 Temperature Pulse Rate Pulse Rate [Pulse Oximeter] 93 93 Respiratory Rate 16 26 H 26 H Blood Pressure Blood Pressure [Le ft Upper Arm] 191/90 H 178/103 H Pulse Oximetry 96 95 Oxygen Delivery Me thod OxyMask OxyMask Oxygen Flow Rate 15 15 03/12/23 23:00 03/12/23 23:04 03/12/23 23:04 Temperature 97.3 F L Pulse Rate 87 Pulse Rate [Pulse Oximeter] 88 97 Respiratory Rate 18 26 H Blood Pressure 151/86 H Blood Pressure [Le ft Upper Arm] 151/86 H 186/106 H Pulse Oximetry 94 84 L 92 Oxygen Delivery Me thod OxyMask Room Air Oxygen Flow Rate 15 03/12/23 23:05 03/12/23 23:07 03/12/23 23:12 Temperature Pulse Rate 85 88 83 Pulse Rate [Pulse Oximeter] Respiratory Rate Blood Pressure 151/94 H 148/94 H Blood Pressure [Le ft Upper Arm] Pulse Oximetry 94 94 98 Oxygen Delivery Me thod Oxygen Flow Rate 03/12/23 23:15 03/12/23 23:17 03/12/23 23:22 Temperature Pulse Rate 84 79 81 Pulse Rate [Pulse Oximeter] Respiratory Rate Blood Pressure 149/86 H 133/73 Blood Pressure [Le ft Upper Arm] Pulse Oximetry 96 91 89 Oxygen Delivery Me thod Oxygen Flow Rate 03/12/23 23:27 03/12/23 23:30 03/12/23 23:30 Temperature Pulse Rate 78 78 Pulse Rate [Pulse Oximeter] Respiratory Rate 16 Blood Pressure 141/77 H Blood Pressure [Le ft Upper Arm] Pulse Oximetry 97 96 Oxygen Delivery Me thod Oxygen Flow Rate 03/12/23 23:32 03/12/23 23:37 03/12/23 23:42 Temperature Pulse Rate 80 79 Pulse Rate [Pulse Oximeter] Respiratory Rate Blood Pressure 146/81 H 140/73 H Blood Pressure [Le ft Upper Arm] Pulse Oximetry 97 95 96 Oxygen Delivery Me thod Oxygen Flow Rate 03/12/23 23:42 03/12/23 23:42 03/12/23 23:45 Temperature Pulse Rate 80 78 Pulse Rate [Pulse Oximeter] Respiratory Rate Blood Pressure 145/72 H Blood Pressure [Le ft Upper Arm] Pulse Oximetry 96 98 95 Oxygen Delivery Me thod Nasal Cannula Oxygen Flow Rate 6 03/12/23 23:46 03/12/23 23:52 03/12/23 23:57 Temperature Pulse Rate 78 76 75 Pulse Rate [Pulse Oximeter] Respiratory Rate Blood Pressure 143/73 H 133/73 126/71 Blood Pressure [Le ft Upper Arm] Pulse Oximetry 95 95 91 Oxygen Delivery Me thod Oxygen Flow Rate 03/13/23 00:00 03/13/23 00:00 03/13/23 00:02 Temperature Pulse Rate 78 77 Pulse Rate [Pulse Oximeter] Respiratory Rate 16 Blood Pressure 156/82 H Blood Pressure [Le ft Upper Arm] Pulse Oximetry 93 94 Oxygen Delivery Me thod Oxygen Flow Rate 03/13/23 00:02 03/13/23 00:02 03/13/23 00:02 Temperature Pulse Rate 77 77 77 Pulse Rate [Pulse Oximeter] Respiratory Rate Blood Pressure 156/82 H 156/82 H 156/82 H Blood Pressure [Le ft Upper Arm] Pulse Oximetry 94 94 94 Oxygen Delivery Me thod Oxygen Flow Rate 03/13/23 00:15 03/13/23 00:17 03/13/23 00:30 Temperature Pulse Rate 72 73 74 Pulse Rate [Pulse Oximeter] Respiratory Rate Blood Pressure 159/119 H Blood Pressure [Le ft Upper Arm] Pulse Oximetry 100 99 99 Oxygen Delivery Me thod Oxygen Flow Rate 03/13/23 00:32 03/13/23 00:54 03/13/23 01:00 Temperature Pulse Rate 71 74 Pulse Rate [Pulse Oximeter] Respiratory Rate Blood Pressure 153/92 H 192/95 H Blood Pressure [Le ft Upper Arm] Pulse Oximetry 98 99 Oxygen Delivery Me thod Oxygen Flow Rate 03/13/23 01:01 03/13/23 01:02 03/13/23 01:12 Temperature Pulse Rate 72 74 70 Pulse Rate [Pulse Oximeter] Respiratory Rate Blood Pressure 181/104 H 171/94 H Blood Pressure [Le ft Upper Arm] Pulse Oximetry 98 98 99 Oxygen Delivery Me thod Oxygen Flow Rate 03/13/23 01:15 03/13/23 01:22 03/13/23 01:30 Temperature Pulse Rate 70 67 71 Pulse Rate [Pulse Oximeter] Respiratory Rate Blood Pressure 174/88 H Blood Pressure [Le ft Upper Arm] Pulse Oximetry 98 97 97 Oxygen Delivery Me thod Oxygen Flow Rate 03/13/23 01:32 03/13/23 01:42 03/13/23 01:45 Temperature Pulse Rate 73 69 69 Pulse Rate [Pulse Oximeter] Respiratory Rate Blood Pressure 176/85 H 159/88 H Blood Pressure [Le ft Upper Arm] Pulse Oximetry 98 97 98 Oxygen Delivery Me thod Oxygen Flow Rate 03/13/23 01:52 03/13/23 02:00 03/13/23 02:02 Temperature Pulse Rate 68 64 65 Pulse Rate [Pulse Oximeter] Respiratory Rate Blood Pressure 144/77 H 123/71 Blood Pressure [Le ft Upper Arm] Pulse Oximetry 96 97 96 Oxygen Delivery Me thod Oxygen Flow Rate 03/13/23 02:13 03/13/23 02:15 03/13/23 02:22 Temperature Pulse Rate 61 64 63 Pulse Rate [Pulse Oximeter] Respiratory Rate Blood Pressure 128/70 151/78 H Blood Pressure [Le ft Upper Arm] Pulse Oximetry 97 96 97 Oxygen Delivery Me thod Oxygen Flow Rate Hospitalist - H&P: Result Labs Labs: Short CBC 03/12/23 Range/Units 22:38 WBC 8.66 (4.50-11.00) K/uL Hgb 13.1 L (13.5-17.5) gm/dL Hct 37.4 (37.0-53.0) % Plt Count 193 (140-440) K/uL BMP 03/12/23 22:38 Sodium 125 L Potassium 4.2 Chloride 92 L Carbon Dioxide 25 BUN 27 Creatinine 1.4 Glucose 104 Calcium 10.0 Liver Function 03/12/23 Range/Units 22:38 Total Bilirubin 0.5 (0.1-1.5) mg/dL AST 30 (12-35) U/L ALT 19 (4-50) U/L Alkaline Phosphatase 142 (40-150) U/L Albumin 4.3 (3.3-5.0) g/dL Urine 03/12/23 Range/Units 23:15 Urine Color Yellow (Yellow) Urine Appearance Clear (Clear) Urine pH 7.0 (5.0-8.5) Ur Specific [place] 1.020 (1.000-1.030) Urine Protein 2+ A (Negative) Urine Glucose (UA) Negative (Negative) ECG Attestation: I personally reviewed and interpreted this ECG as follows: Interpretation: Baseline artifact interpreted by a computer as a fib; however, regular QRS complexes with upright P waves are seen - rhythm is sinus, QTC 450, no STT wave a schema changes Imaging CT scan - head: Radiologist's impression: No recent territorial infarct, intracranial hemorrhage or midline shift. 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 Cxqw-hh-nimjffwh generalized parenchymal volume loss with severe chronic microvascular ischemic changes. - CT Chest/Ab/Pelvis: Radiologist's impression: No acute intrathoracic or intra-abdominal/pelvic abnormality including aortic dissection as questioned. 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 Additional short-segment linear hypodensity along the descending thoracic aorta, possibly short-segment chronic dissection. Consider nonemergent outpatient vascular surgery consultation. Incidental 8 millimeter left upper lobe ground-glass nodule, possibly infectious/inflammatory in etiology. This could be followed up with dedicated CT chest in 6 months. Coronary artery calcifications. Assessment and Plan Assessment and plan (1) New onset seizure: Status: Acute (2) Acute delirium: Status: Acute (3) Hyponatremia: Status: Acute (4) Elevated lactic acid level: Status: Acute (5) Aorta disorder: Status: Acute Plan New onset seizure activity Sodium not at a level which would suggest cause of seizure. Home meds include tramadol which would be rare cause. CT head findings suggestive of chronic lacunar infarcts and severe microvascular disease. -seizure precautions, ativan as needed for breakthrough seizure -MRI brain in the morning -monitor sodium, glucose, electrolytes -hold tramadol for now -telemetry monitoring Acute Delerium Reportedly severely combative, likely due to post ictal state which has essentially resolved on admission. -avoid further sedating meds as possible -plan as above Hyponatremia Presenting sodium 125, most recent 134. 1 L IVF given in ER. -repeat sodium level now. If decreased further after IVF, will start hypertonic saline with DDAVP to avoid overcorrection and monitor levels closely. Elevated Lactic Acid Likely related to seizure activity. Repeat lactic acid level now. Aorta Disorder CT findings as above. 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 DVT ppx: SCDs for now, observation status I have addressed Code Status with the patient and he does desire .? This will be ordered as per his wishes. Telehealth Visit:? Today's History and Physical is provided via interactive telehealth by Power Harding DO.? Patient is located at [facility].? Provider is located at [facility].? Nursing staff assisted with the patient's exam. The visit being done today meets criteria for a telehealth visit and the patient or patient?s parent/guardian is aware the visit is a telehealth visit. Camera Start Time: 3:44 AM Camera End Time: 4:07 AM Medical Complexity: high
--- NOTE | 2023-03-13 04:16 | CRLHL7_ITS ---
For Patients: As a result of the Century Cures Act, medical imaging exams and procedure reports are released immediately into your electronic medical record. You may view this report before your referring provider. If you have questions, please contact your health care provider. INDICATION: Seizures. TECHNIQUE: Brain MRI without contrast. The following sequences were obtained: Sagittal T1 weighted sequence. DWI and ADC mapping sequences. Axial FLAIR and ADINA T2 weighted sequences. Susceptibility or GRE sequence. COMPARISON: Head CT from 03/12/2023. FINDINGS: No evidence of acute ischemia. Multiple areas of curvilinear susceptibility artifact localizing to the cerebral cortices and sulci, most prominent within the left superior frontal/parietal region, as well as the left occipital lobe, likely reflecting cortical/subarachnoid hemosiderin. Microhemorrhages within the right posterior medial temporal lobe and left occipital lobe. Moderately-sized transcortical infarcts within the right middle frontal gyrus/anterior frontal operculum, the left high parietal lobe/postcentral gyrus and the left occipital lobe. Small cortical infarcts within the left precentral gyrus and right occipital lobe. Multiple chronic infarcts within the bilateral cerebellar hemispheres, greater on the left. Patchy FLAIR hyperintensities throughout the supratentorial white matter and brainstem, typical for chronic microvascular ischemic change. No mass effect or herniation. No hydrocephalus or extra-axial collections. The pituitary gland, parasellar structures and optic chiasm are normal. All the major intracranial vascular structures demonstrate normal flow-related signal. The orbital contents are normal. No calvarial or skull base marrow replacing process. No obstructive sinus disease. No extracranial soft tissue findings. IMPRESSION: 1. No acute ischemia or other acute intracranial pathology. 2. 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 3. Chronic cortical/subarachnoid hemosiderin deposition as well as a few microbleeds. 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 No acute intracranial hemorrhage. Dictated by Roman Bhatti MD @ 03/13/2023 10:23:07 AM (Electronically Signed)
[2023-03-13 05:19] LABS: Lactate* 0.8 mmol/L (0.5-1.9)
[2023-03-13 05:42] LABS: Sodium* 124 mmol/L (135-149)
--- NOTE | 2023-03-13 06:20 | PC.NURSE ---
Patient to the unit at approximately 0315 accompanied by his , Roseann. A&Ox3 with some delay. A1/walker/GB. Neuros unremarkable.
[2023-03-13] MEDS: DESMOPRESSIN ACETATE 4 MCG/ML inj 2 MCG IVP (09:01)
--- NOTE | 2023-03-13 09:02 | PM.IMPN1 ---
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 neuro consulted via telemedicine this am. hold or minimize tramadol. start keppra. no driving for 3 months. clear-minded this am - knows where he is, doesn't remember what happened last night. feels good this morning (at baseline). Afebrile 188/91, 151/78 (no morning meds from home had been ordered yet) Pulse 50s to 70s Respiratory rate 18 and unlabored Pulse ox 96-97% CBC was possibly hemoconcentrated upon arrival to the ED last night. A but otherwise unremarkable PH 7.4 Last sodium before arrival to the ED was 134 in May of 2022. Initial sodium was 125 in the ED, dropped to 124, is now up to 126 as of 0900 this morning. 3% saline with single doses of DDAVP used to increase saline. Initially lactate was elevated but but has returned to normal. Troponin is undetectable. I reviewed the rest the chemistries drawn in the ED. I reviewed the brain MRI done this morning it but it shows: 1. No acute ischemia or other acute intracranial pathology. 2. 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 3. Chronic cortical/subarachnoid hemosiderin deposition as well as a few microbleeds. 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 No acute intracranial hemorrhage. Objective: alert, resting tremor worst on the left Vitals: see above Lungs: Clear. Cardiac: S1S2. 3/6 NATA. neuro: no gross deficits; unilateral findings. Disposition/Potential discharge - Likely to return to previous living situation. Today I spent 50minutes seeing the patient, reviewing Expanse and EPIC notes/diagnostics, discussing the care plan with our care time that includes social work, PT/OT, pharmacy, RT, long-term and documenting my impressions and plan in the medical record. Exam Const: Vital Signs, click to edit/add: Vital Signs - 24 hr 03/12/23 22:30 03/12/23 22:40 03/12/23 22:45 Temperature Pulse Rate Pulse Rate [Pulse Oximeter] 93 93 Respiratory Rate 16 26 H 26 H Blood Pressure Blood Pressure [Le ft Arm] Blood Pressure [Le ft Upper Arm] 191/90 H 178/103 H Pulse Oximetry 96 95 Oxygen Delivery Me thod OxyMask OxyMask Oxygen Flow Rate 15 15 03/12/23 23:00 03/12/23 23:04 03/12/23 23:04 Temperature 97.3 F L Pulse Rate 87 Pulse Rate [Pulse Oximeter] 88 97 Respiratory Rate 18 26 H Blood Pressure 151/86 H Blood Pressure [Le ft Arm] Blood Pressure [Le ft Upper Arm] 151/86 H 186/106 H Pulse Oximetry 94 84 L 92 Oxygen Delivery Me thod OxyMask Room Air Oxygen Flow Rate 15 03/12/23 23:05 03/12/23 23:07 03/12/23 23:12 Temperature Pulse Rate 85 88 83 Pulse Rate [Pulse Oximeter] Respiratory Rate Blood Pressure 151/94 H 148/94 H Blood Pressure [Le ft Arm] Blood Pressure [Le ft Upper Arm] Pulse Oximetry 94 94 98 Oxygen Delivery Me thod Oxygen Flow Rate 03/12/23 23:15 03/12/23 23:17 03/12/23 23:22 Temperature Pulse Rate 84 79 81 Pulse Rate [Pulse Oximeter] Respiratory Rate Blood Pressure 149/86 H 133/73 Blood Pressure [Le ft Arm] Blood Pressure [Le ft Upper Arm] Pulse Oximetry 96 91 89 Oxygen Delivery Me thod Oxygen Flow Rate 03/12/23 23:27 03/12/23 23:30 03/12/23 23:30 Temperature Pulse Rate 78 78 Pulse Rate [Pulse Oximeter] Respiratory Rate 16 Blood Pressure 141/77 H Blood Pressure [Le ft Arm] Blood Pressure [Le ft Upper Arm] Pulse Oximetry 97 96 Oxygen Delivery Me thod Oxygen Flow Rate 03/12/23 23:32 03/12/23 23:37 03/12/23 23:42 Temperature Pulse Rate 80 79 Pulse Rate [Pulse Oximeter] Respiratory Rate Blood Pressure 146/81 H 140/73 H Blood Pressure [Le ft Arm] Blood Pressure [Le ft Upper Arm] Pulse Oximetry 97 95 96 Oxygen Delivery Me thod Oxygen Flow Rate 03/12/23 23:42 03/12/23 23:42 03/12/23 23:45 Temperature Pulse Rate 80 78 Pulse Rate [Pulse Oximeter] Respiratory Rate Blood Pressure 145/72 H Blood Pressure [Le ft Arm] Blood Pressure [Le ft Upper Arm] Pulse Oximetry 96 98 95 Oxygen Delivery Me thod Nasal Cannula Oxygen Flow Rate 6 03/12/23 23:46 03/12/23 23:52 03/12/23 23:57 Temperature Pulse Rate 78 76 75 Pulse Rate [Pulse Oximeter] Respiratory Rate Blood Pressure 143/73 H 133/73 126/71 Blood Pressure [Le ft Arm] Blood Pressure [Le ft Upper Arm] Pulse Oximetry 95 95 91 Oxygen Delivery Me thod Oxygen Flow Rate 03/13/23 00:00 03/13/23 00:00 03/13/23 00:02 Temperature Pulse Rate 78 77 Pulse Rate [Pulse Oximeter] Respiratory Rate 16 Blood Pressure 156/82 H Blood Pressure [Le ft Arm] Blood Pressure [Le ft Upper Arm] Pulse Oximetry 93 94 Oxygen Delivery Me thod Oxygen Flow Rate 03/13/23 00:02 03/13/23 00:02 03/13/23 00:02 Temperature Pulse Rate 77 77 77 Pulse Rate [Pulse Oximeter] Respiratory Rate Blood Pressure 156/82 H 156/82 H 156/82 H Blood Pressure [Le ft Arm] Blood Pressure [Le ft Upper Arm] Pulse Oximetry 94 94 94 Oxygen Delivery Me thod Oxygen Flow Rate 03/13/23 00:15 03/13/23 00:17 03/13/23 00:30 Temperature Pulse Rate 72 73 74 Pulse Rate [Pulse Oximeter] Respiratory Rate Blood Pressure 159/119 H Blood Pressure [Le ft Arm] Blood Pressure [Le ft Upper Arm] Pulse Oximetry 100 99 99 Oxygen Delivery Me thod Oxygen Flow Rate 03/13/23 00:32 03/13/23 00:54 03/13/23 01:00 Temperature Pulse Rate 71 74 Pulse Rate [Pulse Oximeter] Respiratory Rate Blood Pressure 153/92 H 192/95 H Blood Pressure [Le ft Arm] Blood Pressure [Le ft Upper Arm] Pulse Oximetry 98 99 Oxygen Delivery Me thod Oxygen Flow Rate 03/13/23 01:01 03/13/23 01:02 03/13/23 01:12 Temperature Pulse Rate 72 74 70 Pulse Rate [Pulse Oximeter] Respiratory Rate Blood Pressure 181/104 H 171/94 H Blood Pressure [Le ft Arm] Blood Pressure [Le ft Upper Arm] Pulse Oximetry 98 98 99 Oxygen Delivery Me thod Oxygen Flow Rate 03/13/23 01:15 03/13/23 01:22 03/13/23 01:30 Temperature Pulse Rate 70 67 71 Pulse Rate [Pulse Oximeter] Respiratory Rate Blood Pressure 174/88 H Blood Pressure [Le ft Arm] Blood Pressure [Le ft Upper Arm] Pulse Oximetry 98 97 97 Oxygen Delivery Me thod Oxygen Flow Rate 03/13/23 01:32 03/13/23 01:42 03/13/23 01:45 Temperature Pulse Rate 73 69 69 Pulse Rate [Pulse Oximeter] Respiratory Rate Blood Pressure 176/85 H 159/88 H Blood Pressure [Le ft Arm] Blood Pressure [Le ft Upper Arm] Pulse Oximetry 98 97 98 Oxygen Delivery Me thod Oxygen Flow Rate 03/13/23 01:52 03/13/23 02:00 03/13/23 02:02 Temperature Pulse Rate 68 64 65 Pulse Rate [Pulse Oximeter] Respiratory Rate Blood Pressure 144/77 H 123/71 Blood Pressure [Le ft Arm] Blood Pressure [Le ft Upper Arm] Pulse Oximetry 96 97 96 Oxygen Delivery Me thod Oxygen Flow Rate 03/13/23 02:13 03/13/23 02:15 03/13/23 02:22 Temperature Pulse Rate 61 64 63 Pulse Rate [Pulse Oximeter] Respiratory Rate Blood Pressure 128/70 151/78 H Blood Pressure [Le ft Arm] Blood Pressure [Le ft Upper Arm] Pulse Oximetry 97 96 97 Oxygen Delivery Me thod Oxygen Flow Rate 03/13/23 03:52 03/13/23 04:08 Temperature 97.4 F L Pulse Rate 57 L Pulse Rate [Pulse Oximeter] 62 Respiratory Rate 18 Blood Pressure Blood Pressure [Le ft Arm] 188/91 H Blood Pressure [Le ft Upper Arm] Pulse Oximetry 96 Oxygen Delivery Me thod Nasal Cannula Oxygen Flow Rate 1.0 Labs Labs: Laboratory Results - last 24 hr 03/12/23 03/12/23 03/12/23 22:38 22:50 23:14 WBC 8.66 RBC 4.31 Hgb 13.1 L Hct 37.4 MCV 87 MCH 30 MCHC 35 RDW Coeff of Radha 12.0 Plt Count 193 Neut % (Auto) 66.0 Lymph % (Auto) 12.6 L [place] % (Auto) 14.2 H Eos % (Auto) 5.7 Baso % (Auto) 0.6 Neut # (Auto) 5.72 Lymph # (Auto) 1.10 [place] # (Auto) 1.20 H Eos # (Auto) 0.49 Baso # (Auto) 0.05 Abs Immat Gran (auto) 0.08 Imm/Tot Granulo (auto) 0.9 ESR 12 VBG pH 7.443 H VBG pCO2 40 VBG pO2 56.0 H VBG HCO3 28 Sodium 125 L Potassium 4.2 Chloride 92 L Carbon Dioxide 25 Anion Gap 8 BUN 27 Creatinine 1.4 Estimated GFR 50 Glucose 104 Lactate 2.8 H Calcium 10.0 Magnesium 2.2 Total Bilirubin 0.5 AST 30 ALT 19 Alkaline Phosphatase 142 C-Reactive Protein < 0.5 L Total Protein 7.3 Albumin 4.3 Procalcitonin 0.09 TSH Urine Color Urine Appearance Urine pH Ur Specific [place] Urine Protein Urine Glucose (UA) Urine Ketones Urine Blood Urine Nitrite Urine Bilirubin Urine Urobilinogen Ur Leukocyte Esterase Urine RBC Urine WBC Ur Squamous Epith Cells Urine Bacteria Urine Opiates Screen Ur Oxycodone Screen Urine Methadone Screen Ur Propoxyphene Screen Acetaminophen < 10.0 L Ur Barbiturates Screen U Tricyclic Antidepress Ur Phencyclidine Scrn Ur Amphetamines Screen U Methamphetamines Scrn U Benzodiazepines Scrn Urine Cocaine Screen U Marijuana (THC) Screen Ur Drug Screen Comment Ethyl Alcohol < 0.01 L SARS-CoV-2 (PCR) Negative SARS-CoV-2 Influenza Type A (PCR) Negative PCR FLU A Influenza Type B (PCR) Negative PCR FLU B RSV (PCR) Negative PCR RSV POC Troponin I 0.02 03/12/23 03/13/23 23:15 05:05 WBC RBC Hgb Hct MCV MCH MCHC RDW Coeff of Radha Plt Count Neut % (Auto) Lymph % (Auto) [place] % (Auto) Eos % (Auto) Baso % (Auto) Neut # (Auto) Lymph # (Auto) [place] # (Auto) Eos # (Auto) Baso # (Auto) Abs Immat Gran (auto) Imm/Tot Granulo (auto) ESR VBG pH VBG pCO2 VBG pO2 VBG HCO3 Sodium 124 L* Potassium Chloride Carbon Dioxide Anion Gap BUN Creatinine Estimated GFR Glucose Lactate 0.8 Calcium Magnesium Total Bilirubin AST ALT Alkaline Phosphatase C-Reactive Protein Total Protein Albumin Procalcitonin TSH 2.680 Urine Color Yellow Urine Appearance Clear Urine pH 7.0 Ur Specific [place] 1.020 Urine Protein 2+ A Urine Glucose (UA) Negative Urine Ketones Negative Urine Blood Trace-intact A Urine Nitrite Negative Urine Bilirubin Negative Urine Urobilinogen 0.2 Ur Leukocyte Esterase Negative Urine RBC 0-2 Urine WBC 0-2 Ur Squamous Epith Cells None Urine Bacteria None Urine Opiates Screen Negative Ur Oxycodone Screen Negative Urine Methadone Screen Negative Ur Propoxyphene Screen Negative Acetaminophen Ur Barbiturates Screen Negative U Tricyclic Antidepress Negative Ur Phencyclidine Scrn Negative Ur Amphetamines Screen Negative U Methamphetamines Scrn Negative U Benzodiazepines Scrn Negative Urine Cocaine Screen Negative U Marijuana (THC) Screen Negative Ur Drug Screen Comment See Note Ethyl Alcohol SARS-CoV-2 (PCR) Influenza Type A (PCR) Influenza Type B (PCR) RSV (PCR) POC Troponin I
[2023-03-13 09:25] LABS: Sodium* 126 mmol/L (135-149)
[2023-03-13] MEDS: SODIUM CHLORIDE 0.9 % (FLUSH) 10 ML SYRINGE 5 ML IVF ×2 (09:30→21:01)
[2023-03-13] MEDS: carvediloL 6.25 MG TABLET 12.5 MG PO ×2 (09:57→21:00)
[2023-03-13] MEDS: FINASTERIDE 5 MG TABLET PO (09:58)
[2023-03-13] MEDS: SERTRALINE 50 MG TABLET PO (09:59)
[2023-03-13] MEDS: TAMSULOSIN HCL 0.4 MG CAPSULE PO (09:59)
[2023-03-13] MEDS: LOSARTAN POTASSIUM 50 MG TABLET 100 MG PO (10:00)
[2023-03-13] MEDS: AMLODIPINE 5 MG TABLET 1.25 MG PO (10:02)
[2023-03-13] MEDS: 0.9 % SODIUM CHLORIDE 1000 ml 1,000 ML 75 ML IV (12:13)
[2023-03-13] MEDS: levETIRAcetam 500 MG TABLET PO ×2 (12:14→21:00)
[2023-03-13] MEDS: SODIUM CHLORIDE 1 GM TABLET PO ×2 (12:14→18:10)
[2023-03-13 13:17] LABS: Chloride* 94 mmol/L (96-114); Potassium* 4.1 mmol/L (3.6-5.1); Sodium* 129 mmol/L (135-149)
[2023-03-13 13:20] LABS: Anion Gap 5 mEq/L (7-15); Blood Urea Nitrogen* 25 mg/dL (7-30); Carbon Dioxide* 30 mmol/L (20-32); Creatinine* 1.2 mg/dL (0.5-1.5); Est. Creatinine Clearance* 49.68; Estimated Glomerular Filt Rate 60 ml/min; Glucose* 102 mg/dL (60-115)
[2023-03-13 13:21] LABS: Calcium* 9.6 mg/dL (8.4-10.6)
--- NOTE | 2023-03-13 18:31 | PC.NURSE ---
Patient pleasant, alert and oriented. Ambulated with stand by assist with or without walker per patient preference. Tolerated regular diet. Reported pain/discomfort in back and butt. PRN Tylenol with codeine effective. Patient stands and marches in place to relieve pain. IV fluids discontinued and fluid restriction implemented. Patient had neuro consult and was started on Keppra. No seizure activity observed.
[2023-03-13] MEDS: ROSUVASTATIN CALCIUM 10 MG TABLET PO (21:00)
[2023-03-13] MEDS: ZOLPIDEM 5 MG TABLET 10 MG PO (21:01)
[2023-03-13] MEDS: ACETAMINOPHEN 325 MG TABLET PO (22:22)
--- NOTE | 2023-03-13 22:34 | PC.NURSE ---
around 2144 loan underwriter heard pt fall on the floor. Pt was found to be sitting on his bottom near the end of bed. Pt denies hitting head. ROM done and w/ help pt was able to stand and sit back on the bed. Denies lightheadedness or dizziness. Pt states I was trying to stand and reposition. VS and neuros done. Pt denies pain. Skin check, no obvious injury. MD aware.
[2023-03-14] VITALS (7 sets, daily range): BP systolic 113–199; BP diastolic 54–107; PULSE 56–86; RESP 16–20; TEMP 36.4–36.7; O2SAT 92–96
[2023-03-14 06:15] LABS: HCO3 VBG 28 mmol/L (21-28); PCO2 VBG 44 mmHG (40-50); PO2 VBG 32.4 mmHG (25-47); pH VBG 7.406 (7.32-7.43)
[2023-03-14 06:19] LABS: Hematocrit 33.2 % (37.0-53.0); Hemoglobin* 11.5 gm/dL (13.5-17.5); Mean Corpuscular HGB Conc 35 gm/dL (32-36); Mean Corpuscular Hemoglobin 31 pg (26-34); Mean Corpuscular Volume 90 fL (80-100); Platelet Count* 143 K/uL (140-440); Red Blood Count 3.71 m/uL (4.30-5.90); White Blood Count* 8.77 K/uL (4.50-11.00)
[2023-03-14 06:20] LABS: Slide Review Reflex No
--- NOTE | 2023-03-14 06:45 | PC.NURSE ---
End of shift: Pt A&O w/ some forgetfulness. Reports 5/10 back pain. See eMAR for intervention. SBA w/ walker and gait belt to bathroom. 2000ml fluid restriction. does not use call light appropriately. Bed alarm in place.
[2023-03-14 07:01] LABS: Chloride* 97 mmol/L (96-114)
[2023-03-14 07:02] LABS: Albumin* 3.6 g/dL (3.3-5.0); Sodium* 127 mmol/L (135-149)
[2023-03-14 07:05] LABS: Anion Gap 6 mEq/L (7-15); Blood Urea Nitrogen* 24 mg/dL (7-30); Carbon Dioxide* 24 mmol/L (20-32); Est. Creatinine Clearance* 59.61; Estimated Glomerular Filt Rate 75 ml/min
[2023-03-14 07:06] LABS: Glucose* 96 mg/dL (60-115); Phosphorus* 2.8 mg/dL (2.5-4.5)
[2023-03-14 07:09] LABS: C Reactive Protein* 1.2 mg/dL (0.5-1.0)
[2023-03-14 07:14] LABS: Troponin I* 0.04 ng/mL (0.01-0.04)
--- NOTE | 2023-03-14 07:42 | P.IMPN_ITS ---
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 -Keppra 500mg BID recommended; continue aspirin -No driving for 3 months -Limit or eliminate tramadol (transitioned to scheduled Tylenol ER, lidocaine patch) -wean zoloft and start cymbalta trial -f/u with [place] PCP and outpatient neuro Status: Acute (2) Hyponatremia: Problem details: hold hctz 3% saline with DDAVP; gradual increase is the goal (4-6meq) per 24 will transition to normal saline, salt tabs, water restriction and monitor q 4-6 hour labs Status: Acute (3) Acute delirium: Problem details: -has resolved -but with short term memory lapses will do a MOCA and discuss with family some short term rehab. 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 c/o of right buttock/hip pain. (Pelvic CT done in the ED) -doesn't remember me from yesterday -knows where he is and seems mostly insightful but doesn't remember slipping from his mattress to his buttocks in the night. End of shift: Pt A&O w/ some forgetfulness. Reports 5/10 back pain. See eMAR for intervention. SBA w/ walker and gait belt to bathroom. 2000ml fluid restriction. does not use call light appropriately. Bed alarm in place. no further seizures. neuro consulted via telemedicine 03/13. -hold or minimize tramadol. -start keppra. -no driving for 3 months. Afebrile Blood pressure 155/77, 152/86 Pulse 60 to 70s Respiratory rate 18 to 20 Pulse ox 92% on room air Weight 89.3 kilos CBC reflects a stable appearance Venous blood gas is reassuring Sodium is 127 initial presentation was 125, cirilo 124. It was up to 129 but this morning is 127. Rest of the electrolytes look stable or improved. Brain MRI IMPRESSION: 1. No acute ischemia or other acute intracranial pathology. 2. 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 3. Chronic cortical/subarachnoid hemosiderin deposition as well as a few microbleeds. 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 No acute intracranial hemorrhage. Last sodium before arrival to the ED was 134 in May of 2022. Initial sodium was 125 in the ED Objective: alert, resting tremor worst on the left Vitals: see above Lungs: Clear. Cardiac: S1S2. 3/6 NATA. neuro: no gross deficits; unilateral findings. resting left hand tremor. Disposition/Potential discharge - discussion today with family and patient: short term rehab candidate: new walker use, new seizure disorder. Today I spent 50minutes seeing the patient, reviewing Expanse and EPIC notes/diagnostics, discussing the care plan with our care time that includes social work, PT/OT, pharmacy, RT, care home and documenting my impressions and plan in the medical record. Exam Const: Vital Signs, click to edit/add: Vital Signs - 24 hr 03/13/23 09:34 03/13/23 11:00 03/13/23 15:00 Temperature 97.5 F L 98.0 F Pulse Rate 71 Pulse Rate [Pulse Oximeter] 74 62 Respiratory Rate 18 18 Blood Pressure [Le ft Arm] 173/88 H 131/72 Pulse Oximetry 93 91 Oxygen Delivery Me thod Room Air Room Air Oxygen Flow Rate 03/13/23 15:00 03/13/23 19:00 03/13/23 20:43 Temperature 98.0 F Pulse Rate Pulse Rate [Pulse Oximeter] 62 69 60 Respiratory Rate 18 18 Blood Pressure [Le ft Arm] 136/56 L 152/72 H Pulse Oximetry 92 Oxygen Delivery Me thod Room Air Oxygen Flow Rate 03/13/23 21:44 03/13/23 22:40 03/13/23 23:00 Temperature 97.6 F Pulse Rate 60 Pulse Rate [Pulse Oximeter] 69 66 Respiratory Rate 22 20 Blood Pressure [Le ft Arm] 184/97 H 152/86 H Pulse Oximetry 95 92 Oxygen Delivery Me thod Nasal Cannula Room Air Oxygen Flow Rate 1 03/14/23 03:00 Temperature Pulse Rate Pulse Rate [Pulse Oximeter] 72 Respiratory Rate 18 Blood Pressure [Le ft Arm] 155/77 H Pulse Oximetry 92 Oxygen Delivery Me thod Room Air Oxygen Flow Rate Labs Labs: Laboratory Results - last 24 hr 03/13/23 03/13/23 03/14/23 09:07 12:58 05:50 WBC 8.77 RBC 3.71 L Hgb 11.5 L Hct 33.2 L MCV 90 MCH 31 MCHC 35 Plt Count 143 VBG pH 7.406 VBG pCO2 44 VBG pO2 32.4 VBG HCO3 28 Sodium 126 L 129 L 127 L Potassium 4.1 4.0 Chloride 94 L 97 Carbon Dioxide 30 24 Anion Gap 5 L 6 L BUN 25 24 Creatinine 1.2 1.0 Estimated Creat Clear 49.68 59.61 Estimated GFR 60 75 Glucose 102 96 Calcium 9.6 9.0 Phosphorus 2.8 Troponin I 0.04 C-Reactive Protein 1.2 H Albumin 3.6
[2023-03-14] MEDS: SODIUM CHLORIDE 0.9 % (FLUSH) 10 ML SYRINGE 5 ML IVF ×2 (08:02→20:18)
[2023-03-14] MEDS: LIDOCAINE 5% PATCH 1 PATCH TRANSDERMA (08:27)
[2023-03-14] MEDS: SODIUM CHLORIDE 1 GM TABLET PO ×3 (08:30→17:41)
[2023-03-14] MEDS: AMLODIPINE 5 MG TABLET 1.25 MG PO (08:31)
[2023-03-14] MEDS: carvediloL 6.25 MG TABLET 12.5 MG PO ×2 (08:32→20:18)
[2023-03-14] MEDS: ACETAMINOPHEN 650 MG TABLET ER 1300 MG PO ×3 (08:33→23:31)
[2023-03-14] MEDS: DULOXETINE 30 MG CAPSULE DR PO (08:35)
[2023-03-14] MEDS: LOSARTAN POTASSIUM 50 MG TABLET 100 MG PO (08:36)
[2023-03-14] MEDS: FINASTERIDE 5 MG TABLET PO (08:36)
[2023-03-14] MEDS: levETIRAcetam 500 MG TABLET PO ×2 (08:36→20:18)
[2023-03-14] MEDS: SERTRALINE 50 MG TABLET 25 MG PO (08:38)
[2023-03-14] MEDS: TAMSULOSIN HCL 0.4 MG CAPSULE PO (08:41)
[2023-03-14 13:16] LABS: Sodium* 130 mmol/L (135-149)
--- NOTE | 2023-03-14 14:18 | PC.NURSE ---
Sodium level now 130 @ 1300, Dr. Escobar updated, new order to stop 3% sodium chloride. IV now saline locked
--- NOTE | 2023-03-14 14:48 | PC.NURSE ---
Family in patients room, patient stood up and family turned off chair alarm, member of family came out to desk and stated he's in the bathroom now. Staff informed family of the importance of having staff assist to bathroom/standing/ambulation due to high fall risk, daughter states he snuck right past me while there were 4 family members in room with patient. Chair alarm back on and call light within reach.
--- NOTE | 2023-03-14 16:55 | PC.SOCIAL ---
Discharge planning- Recommendation for SNF for short-term rehab. Met with pt, pt's , and pt's daughters in pt's room to discuss discharge plans. Family would like pt to have a short term rehab stay. Family would like pt to go to [facility] in [place]. Family is open to looking at facilities in [facility], and [place] as pt's daughters live in that area. Pt's would like pt's daughter (Cecily) to be contacted with updates at [phone]. Contacted the following SNF's for possible placement. 1. [facility]- Phone call to [facility] in admissions and left voicemail. Secure e-mailed referral to [facility] at [email or web address]. 2. [facility]- Phone call to [facility] in admissions. Left a voicemail inquiring on bed availability. Faxed referral to [phone]. 3. [facility]- Phone call and left voicemail. Faxed referral to [phone]. 4. [facility] in [place]. Phone call to [place] in admissions at [phone] and left voicemail. Faxed referral to [phone]. Provided update to pt's daughter Cecily at [phone] as requested. Pt's daughter would like Social work to call her back when pt is accepted at a facility. Social work will continue to follow up as needed.
--- NOTE | 2023-03-14 18:33 | PC.NURSE ---
Patient pleasant, alert and oriented. Impulsive with standing up without assistance. Frequently setting off chair and bed alarm. Needed redirecting regarding asking for assistance. Patient appears worse off today with ambulation, needing to use walker. Unsteady at times, unaware of surrounding and getting caught on corners, over the bed table. Continues to have back and buttock pain without any visible redness or sores. New bruise noted on right hip this AM. Dr Mclain ordered lidocaine patch to site which he reports was effective.
[2023-03-14] MEDS: ROSUVASTATIN CALCIUM 10 MG TABLET PO (20:18)
[2023-03-14] MEDS: ZOLPIDEM 5 MG TABLET PO (20:23)
[2023-03-15] VITALS (8 sets, daily range): BP systolic 147–165; BP diastolic 65–81; PULSE 64–78; RESP 18; TEMP 35.9–36.5; O2SAT 92–96
--- NOTE | 2023-03-15 07:50 | PC.NURSE ---
Pt is alert and oriented x3. Afebrile. Pt reports ?I don?t feel pain, I just can?t get comfortable?. Scheduled?Tylenol was given and pt was repositioned to get comfortable. Pt denies chest pain, and N/V. Pt?set off bed alarm x3 overnight, pt was taken for walk and then slept for most of night. Pt is up A1 with gait belt and walker, voiding, and tolerating regular diet.?
[2023-03-15] MEDS: SODIUM CHLORIDE 1 GM TABLET PO ×3 (07:52→17:26)
[2023-03-15] MEDS: SODIUM CHLORIDE 0.9 % (FLUSH) 10 ML SYRINGE 5 ML IVF ×2 (09:00→20:39)
[2023-03-15 09:09] LABS: Hematocrit 34.1 % (37.0-53.0); Hemoglobin* 11.7 gm/dL (13.5-17.5); Mean Corpuscular HGB Conc 34 gm/dL (32-36); Mean Corpuscular Hemoglobin 31 pg (26-34); Mean Corpuscular Volume 89 fL (80-100); Platelet Count* 169 K/uL (140-440); Red Blood Count 3.83 m/uL (4.30-5.90); White Blood Count* 7.83 K/uL (4.50-11.00)
[2023-03-15 09:11] LABS: Chloride* 99 mmol/L (96-114); Sodium* 130 mmol/L (135-149)
[2023-03-15 09:12] LABS: Potassium* 3.9 mmol/L (3.6-5.1)
[2023-03-15 09:14] LABS: Anion Gap 5 mEq/L (7-15); Carbon Dioxide* 26 mmol/L (20-32); Creatinine* 0.9 mg/dL (0.5-1.5); Est. Creatinine Clearance* 59.61; Estimated Glomerular Filt Rate 85 ml/min
[2023-03-15 09:15] LABS: Blood Urea Nitrogen* 16 mg/dL (7-30); Calcium* 8.8 mg/dL (8.4-10.6); Glucose* 104 mg/dL (60-115)
[2023-03-15 09:28] LABS: Slide Review Reflex No
[2023-03-15] MEDS: LIDOCAINE 5% PATCH 1 PATCH TRANSDERMA (09:30)
[2023-03-15] MEDS: carvediloL 6.25 MG TABLET 12.5 MG PO (09:45)
[2023-03-15] MEDS: TAMSULOSIN HCL 0.4 MG CAPSULE PO (09:46)
[2023-03-15] MEDS: DULOXETINE 30 MG CAPSULE DR PO (09:46)
[2023-03-15] MEDS: AMLODIPINE 5 MG TABLET 1.25 MG PO (09:47)
[2023-03-15] MEDS: SERTRALINE 50 MG TABLET 25 MG PO (09:49)
[2023-03-15] MEDS: levETIRAcetam 500 MG TABLET PO ×2 (09:49→20:38)
[2023-03-15] MEDS: LOSARTAN POTASSIUM 50 MG TABLET 100 MG PO (09:50)
[2023-03-15] MEDS: FINASTERIDE 5 MG TABLET PO (09:51)
[2023-03-15] MEDS: ACETAMINOPHEN 650 MG TABLET ER 1300 MG PO ×2 (09:54→17:26)
--- NOTE | 2023-03-15 10:50 | PC.SOCIAL ---
Addendum entered by VERONIKA Patton 03/15/23 11:17: Received call from [facility]. They currently do not have any beds available but will call if anythign becomes available. tin recovery worker to follow up as needed. Original Note: Discharge planning: Received call from [facility] stating they have no availability. social worker aide to follow up as needed.
--- NOTE | 2023-03-15 13:43 | PM.DS1 ---
DS: Providers Provider Date Seen: 03/15/23 Date of admission: 03/13/23 09:04 Primary care physician: Gabi Yuan PA-C Admitting Clinician: Enrico Noyola MD Consults: 03/13/23 05:11 Consult to Physical Therapy [CONS] Routine Comment: Reason(s) for PT Consult:: Unstable Gait Any Restrictions?:: Unknown 03/14/23 09:27 Consult to Occupational Therapy [CONS] Routine Comment: Reason(s) for OT Consult:: Evaluate and Treat Any Restrictions?:: No Restrictions Attending Physician on discharge: Jazmin Mclain MD [facility] Hospitalist Date of Discharge: 03/15/23 DS: Diagnosis Discharge Diagnosis (1) New onset seizure: Status: Acute Problem details: -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 Additional short-segment linear hypodensity along the descending thoracic aorta, possibly short-segment chronic dissection (4) Elevated lactic acid level: Status: Acute Problem details: resolved (5) Acute delirium: Status: Acute Problem details: -has resolved -but with short term memory lapses will do a MOCA and discuss with family some short term rehab. DS: Summary Hospital Course Hospital Course: FINAL DIAGNOSIS/FOLLOW UP ISSUES: BRIEF HOSPITAL COURSE: Patient was admitted for 4 days. Synopsis of acute inpatient issues are outlined above. Chronic medical conditions with notable findings outlined above. DISCHARGE MEDICATIONS: See Reconciled list - SIGNIFICANT CHANGES: Holding hydrochlorothiazide, continuing losartan Stopping tramadol Stopping Zoloft Starting Cymbalta Starting lidocaine patches Starting sodium chloride tabs Specific instructions to the patient and follow-up are outlined below. REVIEW OF SYSTEMS No new chest pain or dyspnea Pain controlled No voiding difficulties Tolerating diet challenge PHYSICAL EXAM: CONSTITUTIONAL: Much brighter today. Feeling more coordinated and struggling less with short-term memory. VITAL SIGNS: see record. HEENT: Normocephalic, atraumatic. PERRL, EOMI, conjunctivae pink, no scleral icterus. Ears and nose externally normal. Pharynx normal. NECK: No JVD. No carotid bruit, no thyromegaly, no adenopathy. CHEST: Clear to auscultation bilaterally. HEART: S1 and S2 normal. Edema ABDOMEN: Soft, nontender. Normal bowel sounds. MUSCULOSKELETAL: No gross joint deformity or swelling. NEURO: Cranial nerves intact. Grossly intact. No asymmetric findings. SKIN: No rashes, petechiae, concerning changes PSYCHIATRIC: Mood euthymic. DISPOSITION: Short-term we Time spent on discharge 37 minutes. Time Spent with Patient Time attestation: Total time spent providing and/or coordinating discharge services: Exam Const: Vital Signs, click to edit/add: Vital Signs - 24 hr 03/14/23 15:00 03/14/23 15:00 03/14/23 15:00 Temperature 97.9 F Pulse Rate 63 Pulse Rate [Pulse Oximeter] 56 L 56 L Respiratory Rate 16 16 Blood Pressure [Le ft Arm] 113/54 L Pulse Oximetry 95 Oxygen Delivery Me thod Room Air 03/14/23 19:00 03/14/23 23:30 03/14/23 23:30 Temperature 98.1 F Pulse Rate 65 Pulse Rate [Pulse Oximeter] 72 76 Respiratory Rate 18 18 Blood Pressure [Le ft Arm] 199/107 H Pulse Oximetry 95 Oxygen Delivery Pa thod Room Air 03/14/23 23:30 03/15/23 04:00 03/15/23 07:55 Temperature 97.6 F 97.7 F 96.6 F L Pulse Rate Pulse Rate [Pulse Oximeter] 76 65 64 Respiratory Rate 18 18 18 Blood Pressure [Le ft Arm] 174/79 H 156/65 H 157/78 H Pulse Oximetry 93 92 94 Oxygen Delivery Pa thod Room Air Room Air 03/15/23 11:00 Temperature 97.5 F L Pulse Rate Pulse Rate [Pulse Oximeter] 78 Respiratory Rate 18 Blood Pressure [Le ft Arm] 153/70 H Pulse Oximetry 96 Oxygen Delivery Pa thod Room Air DS: Data Data Completed and Pending Labs on day of discharge: Labs from last 24 hours 03/15/23 08:46 WBC 7.83 RBC 3.83 L Hgb 11.7 L Hct 34.1 L MCV 89 MCH 31 MCHC 34 Plt Count 169 Sodium 130 L Potassium 3.9 Chloride 99 Carbon Dioxide 26 Anion Gap 5 L BUN 16 Creatinine 0.9 Estimated Creat Clear 59.61 Estimated GFR 85 Glucose 104 Calcium 8.8 Discharge Plan Discharge Disposition: [facility] Date of Admission: 03/13/23 09:04 Attending Provider on Discharge: Jazmin Mclain Primary Care Provider: Gabi Yuan Discharge Medications: New sertraline 50 mg Tablet 25 mg PO DAILY Qty: 7 0RF Rx Instructions: one tab daily for four days; then decrease to 1/4 tab (12.5mg) for six days. then off. zolpidem 5 mg Tablet 2.5 - 5 mg PO HS PRN (Reason: insomnia) Qty: 30 0RF Rx Instructions: start with 2.5mg and if needed can have another 2.5mg 1 hour later. acetaminophen 650 mg Tablet Extended Release 1,300 mg PO Q8H Qty: 90 0RF duloxetine 30 mg Capsule,Delayed Release(Dr/Ec) 30 mg PO DAILY Qty: 60 0RF Rx Instructions: continue 1 cap (30mg) daily until 29 March, then increase to two tabs (60mg) daily therafter levetiracetam 500 mg Tablet 500 mg PO BID Qty: 60 0RF lidocaine [Lidoderm] 5 % Adhesive Patch,Medicated 1 patch transdermal DAILY Qty: 15 0RF Rx Instructions: OTC, do not run insurance losartan 50 mg Tablet 100 mg PO DAILY Qty: 30 0RF Rx Instructions: replaces losartan/hctz. hold hctz indefinitely due to low sodium. sodium chloride 1,000 mg Tablet,Soluble 1,000 mg PO TIDWM Qty: 90 0RF Continued carvedilol 6.25 mg tablet 6.25 mg PO BID amlodipine 2.5 mg tablet 1.25 mg PO DAILY finasteride 5 mg tablet 5 mg PO DAILY rosuvastatin 10 mg tablet 10 mg PO HS tamsulosin 0.4 mg capsule 0.4 mg PO DAILY Patient Comments: aspirin [Nora Aspirin] 325 mg tablet 325 mg PO DAILY nitroglycerin 0.4 mg tablet, sublingual 0.4 mg sublingual Q5M PRN Rx Instructions: do not exceed 3 doses per episode Discontinued tramadol 50 mg tablet 50 mg PO 3XD carvedilol 12.5 mg tablet 12.5 mg PO BID Patient Comments: losartan-hydrochlorothiazide 100-25 mg tablet 1 tab PO DAILY sertraline 50 mg tablet 50 mg PO DAILY Patient Comments: zolpidem 10 mg tablet 10 mg PO HS Discharge Orders: Discharge Order (Routine); Ordered 03/15/23 Ordered By: Jazmin Mclain Additional Instructions: 1. No tramadol for pain (lowers seizure threshold). 2. Zoloft lowers seizure threshold so we are transitioning him off this to Cymbalta (should cover depression and chronic pain) 3. Lidocaine patch (OTC is fine) to his most painful area in his low back or buttocks 4. Ambien in the elderly is not a good idea; nor is benadryl. He came in on 10mg of ambien. I have prescribed 2.5mg hs prn with another 2.5mg an hour later if needed. hopefully with the cymbalta and tylenol he will sleep better. 5. We stopped the HCTZ part of this losartan/hctz combo (for the low sodium that HCTZcauses) 6. Sodium at discharge was 130, recommend checking a BMP in 1 week. 7. New seizure medication is Keppra 500mg BID. Activity Level: Activity as Tolerated Activity Detail: uses 4 wheel walker with seat. stand by assist. PT/OT to evaluate. Discharge Diet: Regular Follow Up Appointments: Nelly Molina MD [Staff Physician] - 03/26/23 1:30 pm ( [facility] to establish care. ) Admit to: SNF Discharge Potential: Good Length of Stay: <30 days Can use facility standing orders?: Yes Code Status: Full Code TEDs: N/A Rehab Potential: Good Therapy: Physical Therapy and Occupational Therapy Therapy Orders: Evaluate and Treat Orders are good >30 days: Yes
--- NOTE | 2023-03-15 14:19 | PC.SOCIAL ---
Discharge Plan: Patient has been accepted at [facility] ([phone]) for 10:30am tomorrow 03/16/2023. Patient's daughter, Cecily ([phone]) will be transporting patient by car. PAS completed. Social work to follow up as needed.
--- NOTE | 2023-03-15 19:58 | PC.NURSE ---
shift note: vss stable. pt afeb. pt up sba/4 wheeled walker. Bruising to rt hip noted. IV patent x2. LS clr.
[2023-03-15] MEDS: carvediloL 6.25 MG TABLET PO (20:38)
[2023-03-15] MEDS: ROSUVASTATIN CALCIUM 10 MG TABLET PO (20:38)
[2023-03-15] MEDS: ZOLPIDEM 5 MG TABLET PO (21:08)
[2023-03-16 00:04] VITALS: BP 161/82; PULSE 80; RESP 18; TEMP 36.1; O2SAT 94
[2023-03-16] MEDS: ACETAMINOPHEN 650 MG TABLET ER 1300 MG PO ×2 (02:32→10:19)
[2023-03-16 03:00] VITALS: BP 171/84; PULSE 70; RESP 18; TEMP 36.1; O2SAT 94
--- NOTE | 2023-03-16 07:18 | PC.NURSE ---
Pt pleasant and cooperative. Up with 1 assist and walker. VSS. He slept off and on through out the night. Tried ambien and this helped for a few hrs but then was awake the rest of the night.
[2023-03-16] MEDS: TAMSULOSIN HCL 0.4 MG CAPSULE PO ×2 (08:09)
[2023-03-16] MEDS: SERTRALINE 50 MG TABLET 25 MG PO (08:10)
[2023-03-16] MEDS: FINASTERIDE 5 MG TABLET PO (08:11)
[2023-03-16] MEDS: carvediloL 6.25 MG TABLET PO (08:11)
[2023-03-16] MEDS: LOSARTAN POTASSIUM 50 MG TABLET 100 MG PO ×2 (08:11)
[2023-03-16] MEDS: levETIRAcetam 500 MG TABLET PO (08:13)
[2023-03-16] MEDS: AMLODIPINE 5 MG TABLET 1.25 MG PO (08:13)
[2023-03-16] MEDS: DULOXETINE 30 MG CAPSULE DR PO ×2 (08:13→08:14)
[2023-03-16] MEDS: SODIUM CHLORIDE 1 GM TABLET PO (08:14)
[2023-03-16] MEDS: SODIUM CHLORIDE 0.9 % (FLUSH) 10 ML SYRINGE 5 ML IVF (08:14)
[2023-03-16 08:20] VITALS: BP 173/85; PULSE 71; RESP 16; TEMP 36.8; O2SAT 94
[2023-03-16] MEDS: LIDOCAINE 5% PATCH 1 PATCH TRANSDERMA (09:00)
--- NOTE | 2023-03-16 10:22 | PC.SOCIAL ---
Discharge Plan: Met with patient and daughter, Cecily in room to discuss room preference for [facility] ([phone]). Informed of rivera of forty dollars a day extra for private room. Insurance would only cover shared room. Patient and daughter both agreed on shared room. Facility notified of decision. Discharge paperwork secure e-mailed to program director/music director at [facility]. Social work to follow up as needed.
--- NOTE | 2023-03-16 11:34 | PC.NURSE ---
Discharge assessment: Reviewed discharge medications and information regarding where information is sent. Medications were sent to [facility]. Daughter has all information that [facility] will be getting. Discharged to facility @ 0125
--- NOTE | 2023-03-16 12:19 | PM.IMPN1 ---
Subjective Date Seen: 03/16/23 Interval history: Patient's discharge was delayed until this am stable night. daughter will transfer to rehab. Exam Const: Vital Signs, click to edit/add: Vital Signs - 24 hr 03/15/23 15:00 03/15/23 16:32 03/15/23 20:30 Temperature 97 F L 97 F L Pulse Rate [Pulse Oximeter] 69 69 73 Respiratory Rate 18 18 18 Blood Pressure [Le ft Arm] 147/68 H 165/81 H Pulse Oximetry 95 95 Oxygen Delivery Me thod Room Air Room Air 03/15/23 23:00 03/16/23 00:04 03/16/23 03:00 Temperature 97 F L 97 F L Pulse Rate [Pulse Oximeter] 80 70 Respiratory Rate 18 18 18 Blood Pressure [Le ft Arm] 161/82 H 171/84 H Pulse Oximetry 94 94 Oxygen Delivery Me thod Room Air Room Air 03/16/23 08:20 Temperature 98.2 F Pulse Rate [Pulse Oximeter] 71 Respiratory Rate 16 Blood Pressure [Le ft Arm] 173/85 H Pulse Oximetry 94 Oxygen Delivery Me thod Room Air
== END 2023-03-16 10:40 | DRG 100 ==
LOC: ED 03-13 02:10 → MEDSURG 03-13 02:44
PROVIDERS: Emergency Medicine; Family Medicine; Admitting Provider Family Medicine; Emergency Provider Family Medicine; PCP Student in an Organized Health Care Education/Training Program; Visit Provider Family Medicine
DX: R56.9 Unspecified convulsions (principal); I71.012 Dissection of descending thoracic aorta; E87.1 Hypo-osmolality and hyponatremia; R41.0 Disorientation, unspecified; G93.89 Other specified disorders of brain; I10 Essential (primary) hypertension
CPT/HCPCS: 36415; 70450; 70551; 71045; 71275; 74174; 80048; 80053; 80069; 80143; 80306; 81001; 82077; 82803; 83605; 83735; 84145; 84295; 84443; 84484; 85025; 85027; 85651; 86140; 87631; 93005; 94761; 97110; 97112; 97116; 97161; 97165; 97530; 97535; 99285; 99291; G0378; A9270; J2597; J3490; J7030; J7131; Q9967

== ENCOUNTER 2023-03-26 13:58 | Outpatient (CLI) | payer MEDICARE, OTHER, SELFPAY | END 2023-03-26 13:59 | disposition home or self-care (01) | LOC: NFLDREF 13:59 | PROVIDERS: PCP Student in an Organized Health Care Education/Training Program; Visit Provider Internal Medicine | DX: I10 Essential (primary) hypertension (principal) | CPT/HCPCS: 80048 ==

== ENCOUNTER 2023-04-09 14:06 | Outpatient (CLI) | payer MEDICARE, OTHER, SELFPAY | END 2023-04-09 14:07 | disposition home or self-care (01) | LOC: NFLDREF 14:06 | PROVIDERS: PCP Internal Medicine; Visit Provider Internal Medicine | DX: I10 Essential (primary) hypertension (principal) | CPT/HCPCS: 80048 ==

== ENCOUNTER 2023-04-23 12:07 | Emergency (ER) | payer MEDICARE, OTHER, SELFPAY ==
[2023-04-23] VITALS (13 sets, daily range): BP systolic 157–179; BP diastolic 84–95; PULSE 67–75; RESP 18; TEMP 36.4; O2SAT 94–98; BMI 26.8
--- NOTE | 2023-04-23 12:46 | CRLHL7_ITS ---
For Patients: As a result of the Cures Act, medical imaging exams and procedure reports are released immediately into your electronic medical record. You may view this report before your referring provider. If you have questions, please contact your health care provider. Indication: Cough Comparison: Single view chest March 12, 2023 Technique: PA and lateral views of the chest Findings: There is hyperinflation and chronic interstitial change without dense consolidation, effusion, or pneumothorax. The cardiomediastinal silhouette is within normal limits. The bony thorax is grossly intact. Impression: No acute cardiopulmonary abnormality. Dictated by Richie Solano MD @ 04/23/2023 2:40:01 PM (Electronically Signed)
--- NOTE | 2023-04-23 12:47 | ED_ITS ---
HPI - General Adult General Chief complaint: Altered Mental Status Stated complaint: confusion Time Seen by Provider: 04/23/23 12:27 History of Present Illness HPI narrative: This 82-year-old male comes in with his and daughter. He had a headache last night that he states is pretty much gone now after taking some Tylenol. There is report of some increased confusion. Family member states that he seems more distressed over attempting to returns some products that were purchased through [employer]. His daughter states that he gets focused on certain things like this and it triggers some anxiety and maybe some depression. He was seen here about 5 her 6 weeks ago and admitted to the hospital for a few days. He has been home with some home health care since then. At that time he had CT scan of his head and MRI of his head with no acute findings. There was some evidence of previous small stroke. The patient does not report any fever and states that he is not having any pain. Related Data Home Medications Medication Instructions Recorded Confirmed amlodipine 2.5 mg tablet 1.25 mg PO DAILY 06/04/22 04/23/23 aspirin 325 mg tablet (Nora 325 mg PO DAILY 06/04/22 04/23/23 Aspirin) finasteride 5 mg tablet 5 mg PO DAILY 06/04/22 04/23/23 nitroglycerin 0.4 mg sublingual 0.4 mg sublingual Q5M PRN 06/04/22 04/09/23 tablet rosuvastatin 10 mg tablet 10 mg PO HS 06/04/22 04/23/23 tamsulosin 0.4 mg capsule 0.4 mg PO DAILY 06/04/22 04/23/23 Previous Rx's Medication Instructions Recorded acetaminophen 650 mg 1,300 mg (2 x 650 mg) PO Q8H #90 03/15/23 tablet,extended release tabs lidocaine 5 % topical patch 1 patch transdermal DAILY #15 ea 03/15/23 (Lidoderm) losartan 50 mg tablet 100 mg (2 x 50 mg) PO DAILY #30 03/15/23 tabs sertraline 50 mg tablet 25 mg (1/2 x 50 mg) PO DAILY #7 03/15/23 tabs sodium chloride 1,000 mg soluble 1,000 mg PO TIDWM #90 tabs 03/15/23 tablet carvedilol 6.25 mg tablet 6.25 mg PO BID Hypertension #60 03/26/23 tabs duloxetine 30 mg capsule,delayed 30 mg PO DAILY Anxiety #60 caps 03/26/23 release zolpidem 5 mg tablet 5 mg PO HS PRN insomnia #30 tabs 03/26/23 losartan 100 mg tablet 100 mg PO DAILY Hypertension #90 04/04/23 tabs levetiracetam 500 mg tablet 500 mg PO BID #60 tabs 04/20/23 Allergies Allergy/AdvReac Type Severity Reaction Status Date / Time No Known Drug Allergies Allergy Verified 04/09/23 13:40 Review of Systems Status of ROS: Reports: 10 or more systems reviewed and unremarkable except as noted in History and below Narrative: Constitutional: No fevers, no weight gain or loss. Eyes: No discharge. No vision changes. HENT: No congestion, no sore throat, no ear pain. Cardiovascular: No chest pain, no palpitations. Respiratory: No shortness of breath, no wheezes, no cough. Gastrointestinal: No abdominal pain, no vomiting, no diarrhea. Genitourinary: No dysuria, no hematuria. Musculoskeletal: Normal range of motion. Skin: No rashes, no pruritis. Neurological: No dizziness, weakness, sensory change, speech change. Endo/Heme/Allergies: No bruising or bleeding. No polydipsia. Pysch: He does have some insomnia because of frequent nocturia. All other systems reviewed and are negative. [facility] Medical History (Updated 04/23/23 @ 15:38 by Chivo Calixto MD) Seizure ?R56.9 - Unspecified convulsions (ICD-10) Hypertension ?I10 - Essential (primary) hypertension (ICD-10) Anxiety ?F41.9 - Anxiety disorder, unspecified (ICD-10) Insomnia ?G47.00 - Insomnia, unspecified (ICD-10) Hypertension ?I10 - Essential (primary) hypertension (ICD-10) Acute delirium ?R41.0 - Disorientation, unspecified (ICD-10) Family History (Updated 03/13/23 @ 04:05 by Power Harding DO) Father Suicide Social History What is your current living situation?: I presently have a place to live Problems where you live: no known problems Problems where you live details: n/a In the past 12 months, utilities in danger of being shut off: no In past 12 months, lack of transportation kept you from medical appts, meetings, work, or getting things needed for daily living: no In the past 12 mos, have been you worried that your food would run out before you had money to buy more?: never true In the past 12 mos, the food you bought just didn't last and you didn't have money to buy more?: never true Highest level of school completed/degree received: some college, no degree Smoking Status: Former smoker Do you use any of these nicotine containing products: None Second hand tobacco smoke exposure: No How often do you have a drink containing alcohol: never How often do you have six or more drinks on one occasion: Never AUDIT-C Alcohol total score: 0 Non-prescribed substance use: denies use Caffeine: Yes How often does anyone, including family, friends and others, physically hurt you : never How often does anyone, including family, friends and others, insult or talk down to you: never How often does anyone, including family, friends and others, threaten you with harm: never How often does anyone, including family, friends and others, scream or curse at you: never Little interest or pleasure in doing things: not at all Feeling down, depressed, or hopeless: not at all service: No Exam Narrative: Exam Narrative: Constitutional: Well-developed, well-nourished, no acute distress. HEENT: Normocephalic, atraumatic. Neck: Normal range of motion. Nontender. Supple. Heart: Regular. No murmurs. Normal rate. Intact distal pulses. Lungs: Clear to auscultation. No chest discomfort. No wheezes, rhonchi, or rales. Abdomen: Normal bowel sounds. Nontender. No rebound tenderness. Genitalia: Deferred. Back: No midline tenderness. Normal range of motion. Extremities: Normal range of motion. No injury. Skin: Intact. No rash. Warm. No erythema or pallor. Neurologic: No altered sensation. No weakness. Alert and oriented. No facial asymmetry. Tongue is midline. Ttbyaf-on-qjwa is normal. No pronator drift. Hook Tender strength is equal bilaterally. He is able to raise each leg from the bed. Psychiatric: No suicidality. No anxiety or depression. No insomnia. Nursing notes and vitals signs are reviewed. Const: Vital Signs, click to edit/add: Vital Signs - 24 hr 04/23/23 12:15 04/23/23 12:20 04/23/23 12:21 Temperature 97.6 F Pulse Rate 75 74 Pulse Rate [Pulse Oximeter] 73 Respiratory Rate 18 Blood Pressure 157/87 H Blood Pressure [Le ft Upper Arm] 157/87 H Pulse Oximetry 97 95 96 Oxygen Delivery Me thod Room Air 04/23/23 12:30 04/23/23 12:45 04/23/23 13:00 Temperature Pulse Rate 72 68 69 Pulse Rate [Pulse Oximeter] Respiratory Rate Blood Pressure Blood Pressure [Le ft Upper Arm] Pulse Oximetry 94 94 94 Oxygen Delivery Me thod 04/23/23 13:16 04/23/23 13:30 04/23/23 13:45 Temperature Pulse Rate 70 69 68 Pulse Rate [Pulse Oximeter] Respiratory Rate Blood Pressure Blood Pressure [Le ft Upper Arm] Pulse Oximetry 95 98 94 Oxygen Delivery Me thod 04/23/23 14:10 04/23/23 14:11 04/23/23 14:15 Temperature Pulse Rate 70 71 67 Pulse Rate [Pulse Oximeter] Respiratory Rate Blood Pressure 179/95 H Blood Pressure [Le ft Upper Arm] Pulse Oximetry 94 94 97 Oxygen Delivery Me thod 04/23/23 14:22 Temperature Pulse Rate 68 Pulse Rate [Pulse Oximeter] Respiratory Rate Blood Pressure 167/84 H Blood Pressure [Le ft Upper Arm] Pulse Oximetry 96 Oxygen Delivery Me thod Course Vital Signs Vital signs: Initial Vital Signs Temperature 97.6 F 04/23/23 12:15 Temperature Source Temporal Artery Scan 04/23/23 12:15 Pulse Rate 73 04/23/23 12:15 Respiratory Rate 18 04/23/23 12:15 Blood Pressure 157/87 H 04/23/23 12:15 Blood Pressure Mean 110 H 04/23/23 12:15 Blood Pressure Position Supine 04/23/23 12:15 Pulse Oximetry 97 04/23/23 12:15 Oxygen Delivery Method Room Air 04/23/23 12:15 Vital Signs Temperature 97.6 F 04/23/23 12:15 Pulse Rate 73 04/23/23 12:15 Respiratory Rate 18 04/23/23 12:15 Blood Pressure 157/87 H 04/23/23 12:15 Pulse Oximetry 97 04/23/23 12:15 Oxygen Delivery Method Room Air 04/23/23 12:15 Temperature 97.6 F 04/23/23 12:15 Pulse Rate 68 04/23/23 14:22 Respiratory Rate 18 04/23/23 12:15 Blood Pressure 167/84 H 04/23/23 14:22 Pulse Oximetry 96 04/23/23 14:22 Oxygen Delivery Method Room Air 04/23/23 12:15 Medical Decision Making MDM Narrative Medical decision making narrative: This 82-year-old male comes in with family members for a checkup. He arrives with normal vital signs and himself states that he feels okay. He did have a headache last night but states that he does not have headache any longer. His neurologic exam is completely normal. I did hear some wheezes from his lungs. A chest x-ray returns with no acute findings. Additionally lab results are essentially reassuring. The patient's states that he has been troubled with trying to return items to [facility] and and this seems to trigger anxiety and depression symptoms. There are no findings here today that need immediate attention and the patient it seems pleasant and functioning well enough. He and family members are agreeable to return home. I did advise following up with his primary physician for review of his medications and consider additional treatments. He does have an appointment with a physician in a couple weeks. Lab Data Labs: Lab Results 04/23/23 Range/Units 13:00 WBC 7.18 (4.50-11.00) K/uL RBC 3.98 L (4.30-5.90) m/uL Hgb 12.2 L (13.5-17.5) gm/dL Hct 36.4 L (37.0-53.0) % MCV 92 (80-100) fL MCH 31 (26-34) pg MCHC 34 (32-36) gm/dL RDW Coeff of Radha 12.5 (11.5-15.5) % Plt Count 171 (140-440) K/uL Neut % (Auto) 68.6 (42.0-72.0) % Lymph % (Auto) 13.6 L (20-44) % Duchesne % (Auto) 11.6 H (0.0-11.0) % Eos % (Auto) 5.2 (0.0-7.0) % Baso % (Auto) 0.6 (0.0-3.0) % Neut # (Auto) 4.93 (1.7-7.0) K/uL Lymph # (Auto) 1.00 (0.90-2.90) K/uL Duchesne # (Auto) 0.80 (0.00-0.90) K/UL Eos # (Auto) 0.37 (0.00-0.50) K/uL Baso # (Auto) 0.04 (0.00-0.30) K/uL Abs Immat Gran (auto) 0.03 (0.00-0.30) K/uL Imm/Tot Granulo (auto) 0.4 % Sodium 135 (135-149) mmol/L Potassium 3.9 (3.6-5.1) mmol/L Chloride 96 (96-114) mmol/L Carbon Dioxide 28 (20-32) mmol/L Anion Gap 11 (7-15) mEq/L BUN 21 (7-30) mg/dL Creatinine 1.2 (0.5-1.5) mg/dL Estimated Creat Clear 49.68 Estimated GFR 60 ml/min Glucose 115 (60-115) mg/dL Calcium 9.0 (8.4-10.6) mg/dL SARS-CoV-2 (PCR) Negative SARS-CoV-2 (Negative) Influenza Type A (PCR) Negative PCR FLU A (Negative) Influenza Type B (PCR) Negative PCR FLU B (Negative) Imaging Data Chest x-ray: Radiologist's impression: No acute cardiopulmonary abnormality. Discharge Plan Discharge Clinical Impression: Feared condition not demonstrated Patient Disposition: Home w/ Parent or Adult Condition: Stable Additional Instructions: Continue current plans. Follow up with primary physician as scheduled or return if worsening. Prescriptions: No Action zolpidem 5 mg tablet 5 mg PO HS PRN (Reason: insomnia) Qty: 30 0RF Rx Instructions: start with 2.5mg and if needed can have another 2.5mg 1 hour later. duloxetine 30 mg capsule,delayed release(DR/EC) 30 mg PO DAILY Qty: 60 0RF Rx Instructions: continue 1 cap (30mg) daily until 29 March, then increase to two tabs (60mg) daily therafter carvedilol 6.25 mg tablet 6.25 mg PO BID Qty: 60 3RF sertraline 50 mg Tablet 25 mg PO DAILY Qty: 7 0RF Rx Instructions: one tab daily for four days; then decrease to 1/4 tab (12.5mg) for six days. then off. acetaminophen 650 mg Tablet Extended Release 1,300 mg PO Q8H Qty: 90 0RF lidocaine [Lidoderm] 5 % Adhesive Patch,Medicated 1 patch transdermal DAILY Qty: 15 0RF Rx Instructions: OTC, do not run insurance losartan 50 mg Tablet 100 mg PO DAILY Qty: 30 0RF Rx Instructions: replaces losartan/hctz. hold hctz indefinitely due to low sodium. sodium chloride 1,000 mg Tablet,Soluble 1,000 mg PO TIDWM Qty: 90 0RF amlodipine 2.5 mg tablet 1.25 mg PO DAILY finasteride 5 mg tablet 5 mg PO DAILY rosuvastatin 10 mg tablet 10 mg PO HS tamsulosin 0.4 mg capsule 0.4 mg PO DAILY Patient Comments: aspirin [Nora Aspirin] 325 mg tablet 325 mg PO DAILY nitroglycerin 0.4 mg tablet, sublingual 0.4 mg sublingual Q5M PRN Rx Instructions: do not exceed 3 doses per episode losartan 100 mg tablet 100 mg PO DAILY Qty: 90 3RF levetiracetam 500 mg tablet 500 mg PO BID Qty: 60 0RF Follow Up/Referrals: Sachin Baires MD [Primary Care Provider] - Stand Alone Forms: [employer] Info Instructions
[2023-04-23 13:20] LABS: Basophils Absolute Auto 0.04 K/uL (0.00-0.30); Basophils Percent Auto 0.6 % (0.0-3.0); Eosinophils Absolute Auto 0.37 K/uL (0.00-0.50); Eosinophils Percent Auto 5.2 % (0.0-7.0); Hematocrit 36.4 % (37.0-53.0); Hemoglobin* 12.2 gm/dL (13.5-17.5); Immature Granulocytes Abs Auto 0.03 K/uL (0.00-0.30); Immature Granulocytes Pct Auto 0.4 %; Lymphocytes Percent Auto 13.6 % (20-44); Mean Corpuscular HGB Conc 34 gm/dL (32-36); Mean Corpuscular Hemoglobin 31 pg (26-34); Mean Corpuscular Volume 92 fL (80-100); Monocytes Percent Auto 11.6 % (0.0-11.0); Neutrophils Absolute Auto 4.93 K/uL (1.7-7.0); Neutrophils Percent Auto 68.6 % (42.0-72.0); Platelet Count* 171 K/uL (140-440); RDW Coefficient of Variation % 12.5 % (11.5-15.5); Red Blood Count 3.98 m/uL (4.30-5.90); White Blood Count* 7.18 K/uL (4.50-11.00)
[2023-04-23 13:35] LABS: Chloride* 96 mmol/L (96-114); Potassium* 3.9 mmol/L (3.6-5.1); Slide Review Reflex No; Sodium* 135 mmol/L (135-149)
[2023-04-23 13:38] LABS: Anion Gap 11 mEq/L (7-15); Blood Urea Nitrogen* 21 mg/dL (7-30); Carbon Dioxide* 28 mmol/L (20-32); Creatinine* 1.2 mg/dL (0.5-1.5); Est. Creatinine Clearance* 49.68; Estimated Glomerular Filt Rate 60 ml/min
[2023-04-23 13:39] LABS: Glucose* 115 mg/dL (60-115)
[2023-04-23 13:56] LABS: PCR FLU A Negative PCR FLU A (Negative); PCR FLU B Negative PCR FLU B (Negative)
[2023-04-23 14:21] LABS: SARS PCR* Negative SARS-CoV-2 (Negative)
== END 2023-04-23 15:54 | disposition home or self-care (01) ==
PROVIDERS: Emergency Provider Emergency Medicine Emergency Medical Services; PCP Internal Medicine
DX: Z71.1 Person with feared health complaint in whom no diagnosis is made (principal)
CPT/HCPCS: 36415; 71046; 80048; 85025; 87631; 93005; 99283; 99284; 99285

== ENCOUNTER 2023-05-30 08:01 | Outpatient (CLI) | payer MEDICARE, OTHER, SELFPAY ==
--- NOTE | 2023-05-30 08:15 | CRLHL7_ITS ---
For Patients: As a result of the Century Cures Act, medical imaging exams and procedure reports are released immediately into your electronic medical record. You may view this report before your referring provider. If you have questions, please contact your health care provider. Indication: RIGHT HIP PAIN Procedure : Informed consent was obtained. The site was marked. Time-out was performed. The skin of the right hip was cleansed with ChloraPrep. A sterile drape was placed. 4 cc of 1 percent lidocaine was administered for superficial anesthesia. Subsequently a 22 gauge spinal needle was introduced into the right hip joint under intermittent fluoroscopic guidance. Subsequently 7 cc 1 percent lidocaine and 2 cc 40 milligram/cc Depo-Medrol then injected into the right hip joint. The needle was removed and hemostasis achieved with direct pressure. A dressing was placed. The patient tolerated the procedure well without immediate complication. Total fluoroscopy time 11 seconds. Impression: Successful fluoroscopically guided right hip injection with 80 milligrams Depo-Medrol. Dictated by Ye De La Rosa MD @ 05/30/2023 9:17:06 AM (Electronically Signed)
== END 2023-05-30 08:02 | disposition home or self-care (01) ==
LOC: RAD 08:02
PROVIDERS: PCP Internal Medicine; Visit Provider Orthopaedic Surgery Sports Medicine
DX: M16.11 Unilateral primary osteoarthritis, right hip (principal); M25.551 Pain in right hip
CPT/HCPCS: 20610; 77002; J1030; Q9966

== ENCOUNTER 2023-06-18 05:29 | Outpatient (CLI) | payer MEDICARE, OTHER, SELFPAY | END 2023-06-18 05:30 | disposition home or self-care (01) | LOC: AMB 06-19 10:14 | PROVIDERS: PCP Internal Medicine; Visit Provider Family Medicine | DX: R41.82 Altered mental status, unspecified (principal) | CPT/HCPCS: A0425; A0427 ==

== ENCOUNTER 2023-06-18 06:10 | Inpatient (IN) | payer MEDICARE, OTHER, SELFPAY ==
[2023-06-18] VITALS (25 sets, daily range): BP systolic 137–192; BP diastolic 67–110; PULSE 67–86; RESP 16–18; TEMP 36.4–36.9; O2SAT 88–98; BMI 25.8; BMI 28.7
--- NOTE | 2023-06-18 06:12 | CRLHL7_ITS ---
For Patients: As a result of the Century Cures Act, medical imaging exams and procedure reports are released immediately into your electronic medical record. You may view this report before your referring provider. If you have questions, please contact your health care provider. DATE: 06/18/2023 CLINICAL HISTORY: Patient with focal neurological deficits. TECHNIQUE: Standard helical CT image acquisition through the intracranial circulation following intravenous administration of contrast material with bolus tracking. 2D and 3D MIP images for post-processing were performed and interpreted on an independent workstation and 3D images were permanently archived. COMPARISON: CT same day FINDINGS: There is no cerebral aneurysm or large vessel occlusion. The right internal carotid artery is normal. The right middle cerebral artery and its branches are normal. The right anterior cerebral artery and its branches are normal. The left internal carotid artery is normal. The left middle cerebral artery and its branches are normal. The left anterior cerebral artery and its branches are normal. The anterior communicating artery is well visualized and appears normal. The right vertebral artery and PICA are normal. The left vertebral artery and PICA are normal. The vertebral arteries are codominant. The basilar artery is patent and appears normal. The right posterior cerebral artery is normal. The left posterior cerebral artery is normal. The visualized venous structures are patent. IMPRESSION: Normal CT angiogram of the head without intracranial aneurysm or other neurovascular abnormality. Please note that all CT scans at this facility use dose modulation, iterative reconstruction, and/or weight-based dosing when appropriate to reduce radiation dose to as low as reasonably achievable. Dictated by Sachin Amador MD @ 06/18/2023 9:37:49 AM (Electronically Signed)
--- NOTE | 2023-06-18 06:12 | CRLHL7_ITS ---
For Patients: As a result of the Century Cures Act, medical imaging exams and procedure reports are released immediately into your electronic medical record. You may view this report before your referring provider. If you have questions, please contact your health care provider. INDICATION: Clinical signs and symptoms of acute stroke. Right arm weakness COMPARISON: March 12, 2023 TECHNIQUE: CT examination of the head was performed as axial sections without intravenous contrast. Images were obtained from the vertex of the skull through the skull base. Please note that all CT scans at this facility use dose modulation, iterative reconstruction, and/or weight-based dosing when appropriate to reduce radiation dose to as low as reasonably achievable. FINDINGS: The brain shows no sign of mass lesion, mass effect, hemorrhage, or edema. Multiple areas of encephalitis show related to remote infarct. This is posterior left frontal and left parietal, inferomedial left occipital, left cerebellar and right frontal. These findings are similar to March 12, 2023 There are involutional changes. There is moderate to severe cortical atrophy and there is moderate to severe white matter disease. There is no hydrocephalus. The visualized portions of the orbits are normal in appearance. The osseous structures are normal in appearance with no sign of abnormality in the skull base or calvarium. IMPRESSION: 1. Moderate to severe involutional changes consisting of atrophy and white matter disease. 2. Multiple areas of encephalomalacia unchanged since the prior study consistent with multiple nonacute infarcts 3. No hemorrhage or acute appearing finding on this exam. Please note that all CT scans at this facility use dose modulation, iterative reconstruction, and/or weight-based dosing when appropriate to reduce radiation dose to as low as reasonably achievable. Dictated by Kirt Han MD @ 06/18/2023 6:38:18 AM (Electronically Signed)
--- NOTE | 2023-06-18 06:12 | CRLHL7_ITS ---
For Patients: As a result of the Century Cures Act, medical imaging exams and procedure reports are released immediately into your electronic medical record. You may view this report before your referring provider. If you have questions, please contact your health care provider. DATE: 06/18/2023 CLINICAL HISTORY: Patient with focal neurological deficits. TECHNIQUE: Standard helical CT image acquisition of the neck up to the skull base after bolus intravenous contrast enhancement. 2D and 3D MIP images for post-processing were performed and interpreted on an independent workstation and 3D images were permanently archived. COMPARISON: None. FINDINGS: The origins of the great vessels from the aortic arch are patent. The origin of the right vertebral artery is patent. The origin of the left vertebral artery is patent. The common carotid arteries are patent. There is a moderate (66%) stenosis at the origin of the right internal carotid artery by NASCET criteria. This is caused by calcified plaque with a 1.7mm residual lumen. There is a moderate (63%) stenosis at the origin of the left internal carotid artery by NASCET criteria. This is caused by calcified plaque with a 1.7mm residual lumen. The rest of the cervical segments of the internal carotid arteries are patent up to the skull base. The vertebral arteries are codominant. The cervical segments of the vertebral arteries are patent up to the skull base. The visualized lung apices are unremarkable. The thyroid gland is unremarkable. The soft tissues of the neck are unremarkable. There are degenerative changes in the cervical spine. IMPRESSION: 1. Moderate (66%) stenosis at the origin of the right internal carotid artery by NASCET criteria. This is caused by calcified plaque with a 1.7mm residual lumen. 2. Moderate (63%) stenosis at the origin of the left internal carotid artery by NASCET criteria. This is caused by calcified plaque with a 1.7mm residual lumen. Please note that all CT scans at this facility use dose modulation, iterative reconstruction, and/or weight-based dosing when appropriate to reduce radiation dose to as low as reasonably achievable. Dictated by Sachin Amador MD @ 06/18/2023 9:35:18 AM (Electronically Signed)
--- NOTE | 2023-06-18 06:15 | ED_ITS ---
HPI - General Adult General Time Seen by Provider: 06:15 Date Seen: 06/18/23 Chief complaint: Altered Mental Status Stated complaint: fell, possible stroke Time Seen by Provider: 06/18/23 06:21 Source: EMS, RN notes reviewed and old records reviewed Mode of arrival: EMS Limitations: altered mental status History of Present Illness HPI narrative: 82-year-old male brought in his stroke code for altered mental status. Apparently had a fall this morning and has been altered. Combative by EMS on initial arrival, Ativan was given. Patient unable to provide any history. Review of most recent primary care visit from April 2023 shows patient has a history of seizure, hyponatremia, hypertension. Medications at that time: acetaminophen ER 1,300 mg (2 x 650 mg) PO Q8H amlodipine 1.25 mg PO DAILY aspirin (Nora Aspirin) 325 mg PO DAILY carvedilol 6.25 mg PO BID duloxetine 30 mg PO DAILY finasteride 5 mg PO DAILY levetiracetam 500 mg PO BID lidocaine 5% (Lidoderm) 1 patch transdermal DAILY losartan 100 mg PO DAILY losartan 100 mg (2 x 50 mg) PO DAILY nitroglycerin 0.4 mg sublingual Q5M PRN rosuvastatin 10 mg PO HS sertraline 25 mg (1/2 x 50 mg) PO DAILY sodium chloride 1,000 mg PO TIDWM tamsulosin 0.4 mg PO DAILY zolpidem 5 mg PO HS PRN Related Data Home Medications Medication Instructions Recorded Confirmed amlodipine 2.5 mg tablet 1.25 mg PO DAILY 06/04/22 06/18/23 aspirin 325 mg tablet (Nora 325 mg PO DAILY 06/04/22 06/18/23 Aspirin) finasteride 5 mg tablet 5 mg PO DAILY 06/04/22 06/18/23 nitroglycerin 0.4 mg sublingual 0.4 mg sublingual Q5M PRN 06/04/22 05/22/23 tablet rosuvastatin 10 mg tablet 10 mg PO HS 06/04/22 06/18/23 tamsulosin 0.4 mg capsule 0.4 mg PO DAILY 06/04/22 06/18/23 carvedilol 12.5 mg tablet 12.5 mg PO BID 06/18/23 06/18/23 zolpidem 10 mg tablet 10 mg PO QPM 06/18/23 06/18/23 Previous Rx's Medication Instructions Recorded acetaminophen 650 mg 1,300 mg (2 x 650 mg) PO Q8H #90 03/15/23 tablet,extended release tabs lidocaine 5 % topical patch 1 patch transdermal DAILY #15 ea 03/15/23 (Lidoderm) sertraline 50 mg tablet 25 mg (1/2 x 50 mg) PO DAILY #7 03/15/23 tabs sodium chloride 1,000 mg soluble 1,000 mg PO TIDWM #90 tabs 03/15/23 tablet carvedilol 6.25 mg tablet 6.25 mg PO BID Hypertension #60 03/26/23 tabs losartan 100 mg tablet 100 mg PO DAILY Hypertension #90 04/04/23 tabs duloxetine 30 mg capsule,delayed 30 mg PO DAILY Anxiety #60 caps 06/11/23 release levetiracetam 500 mg tablet 500 mg PO BID #60 tabs 06/11/23 Allergies Allergy/AdvReac Type Severity Reaction Status Date / Time No Known Drug Allergies Allergy Verified 06/18/23 06:42 PFSH [facility] Medical History (Updated 06/18/23 @ 07:43 by Nestor Rosen MD) Right hip pain ?M25.551 - Pain in right hip (ICD-10) Seizure ?R56.9 - Unspecified convulsions (ICD-10) Hypertension ?I10 - Essential (primary) hypertension (ICD-10) Anxiety ?F41.9 - Anxiety disorder, unspecified (ICD-10) Insomnia ?G47.00 - Insomnia, unspecified (ICD-10) Hypertension ?I10 - Essential (primary) hypertension (ICD-10) Acute delirium ?R41.0 - Disorientation, unspecified (ICD-10) Surgical History (Updated 05/15/23 @ 08:40 by Brooke Terrell) 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 (ICD-10) Family History (Updated 03/13/23 @ 04:05 by Power Harding DO) Father Suicide Social History What is your current living situation?: I presently have a place to live Problems where you live: no known problems Problems where you live details: n/a In the past 12 months, utilities in danger of being shut off: no In past 12 months, lack of transportation kept you from medical appts, meetings, work, or getting things needed for daily living: no In the past 12 mos, have been you worried that your food would run out before you had money to buy more?: never true In the past 12 mos, the food you bought just didn't last and you didn't have money to buy more?: never true Highest level of school completed/degree received: some college, no degree Smoking Status: Former smoker Do you use any of these nicotine containing products: None Second hand tobacco smoke exposure: No How often do you have a drink containing alcohol: never How often do you have six or more drinks on one occasion: Never AUDIT-C Alcohol total score: 0 Non-prescribed substance use: denies use Caffeine: Yes How often does anyone, including family, friends and others, physically hurt you : never How often does anyone, including family, friends and others, insult or talk down to you: never How often does anyone, including family, friends and others, threaten you with harm: never How often does anyone, including family, friends and others, scream or curse at you: never Little interest or pleasure in doing things: not at all Feeling down, depressed, or hopeless: not at all service: No Exam Narrative: Exam Narrative: General: Well-developed and well-nourished, no acute distress Head: Atraumatic and normocephalic Eyes: Pupils are equal reactive, extraocular motions intact, conjunctiva clear ENT: External nose and ears are normal, posterior pharynx without erythema or exudate Neck: No midline cervical tenderness, full spontaneous range of motion the neck, trachea midline, no adenopathy Heart: Regular rate and rhythm no murmurs or thrills Lungs: Clear to auscultation bilaterally without wheezes or crackles Abdomen: Soft, nontender, nondistended with active bowel sounds Musculoskeletal: No tenderness, deformity, or edema Neurologic: Awake, mumbles in response to questions but does follow commands, director chemistry weak on the right Psych: Mood and affect are appropriate Skin: Skin tear of the left for the arm and abrasion of the right knee Const: Vital Signs, click to edit/add: Vital Signs - 24 hr 06/18/23 06:19 12/25/23 06:37 Temperature 97.5 F L Respiratory Rate 18 Blood Pressure [Le ft Upper Arm] 165/103 H Pulse Oximetry 98 94 Oxygen Delivery Me thod Room Air Course Course ED Course: Patient seen examined on EMS arrival, prior results reviewed. Patient presents today with altered mental status, possible fall. On exam here, he does have skin tear of the left forearm and right knee but no tenderness of the forearm or leg on initial exam. Opens eyes to voice and follows command, questionable weakness of the right arm. Concern for possible acute CVA although other etiology of altered mentation including electrolyte disturbance or infection considered. Also consider postictal status given history of seizure. Labs are ordered and CTA done immediately on arrival. Will not activate stroke code given unknown time of onset of symptoms patient is not a lytic candidate and it have CTA does not demonstrate large vessel occlusion, which given symptoms is unlikely, not a candidate for mechanical thrombolysis either. Reevaluation(s) Time of Reevaluation #1: 06:37 Reevaluation #1: CT scan of the head and interpreted by me negative for acute findings. Patient recheck, he is little more awake and alert although still poorly follows commands and speech is little slurred. Will continue to monitor. Time of Reevaluation #2: 07:23 Reevaluation #2: Labs in the pill interpreted by me with normal CBC other than mild chronic anemia, basic metabolic panel with mild hyponatremia which again is chronic the patient. Troponin 0.03. Time of Reevaluation #3: 07:41 Reevaluation #3: Care discussed with Dr. Noyola, hospitalist, for admission. Patient with fall and altered mental status, seems to be clearing a little bit. Was given Ativan by EMS. Basic metabolic panel is reassuring, CT scan of the head does not demonstrate any acute hemorrhage, no acute large vessel occlusion. Urinalysis is still pending. Suspect that patient may have a seizure and be postictal but given his continued altered mental status, will be observed in the hospital for further evaluation treatment. Vital Signs Vital signs: Initial Vital Signs Temperature 97.5 F L 06/18/23 06:19 Temperature Source Temporal Artery Scan 06/18/23 06:19 Respiratory Rate 18 06/18/23 06:19 Blood Pressure 165/103 H 06/18/23 06:19 Blood Pressure Mean 123 H 06/18/23 06:19 Blood Pressure Position Supine 06/18/23 06:19 Pulse Oximetry 98 06/18/23 06:19 Oxygen Delivery Method Room Air 06/18/23 06:19 Vital Signs Temperature 97.5 F L 06/18/23 06:19 Respiratory Rate 18 06/18/23 06:19 Blood Pressure 165/103 H 06/18/23 06:19 Pulse Oximetry 98 06/18/23 06:19 Oxygen Delivery Method Room Air 06/18/23 06:19 Temperature 97.5 F L 06/18/23 06:19 Respiratory Rate 18 06/18/23 06:19 Blood Pressure 165/103 H 06/18/23 06:19 Pulse Oximetry 94 06/18/23 06:37 Oxygen Delivery Method Room Air 06/18/23 06:19 Medical Decision Making Lab Data Labs: Lab Results 06/18/23 06/18/23 06/18/23 Range/Units 06:11 06:40 07:07 WBC 8.90 (4.50-11.00) K/uL RBC 3.91 L (4.30-5.90) m/uL Hgb 11.4 L (13.5-17.5) gm/dL Hct 34.0 L (37.0-53.0) % MCV 87 (80-100) fL MCH 29 (26-34) pg MCHC 34 (32-36) gm/dL RDW Coeff of Radha 12.0 (11.5-15.5) % Plt Count 140 (140-440) K/uL Neut % (Auto) 77.3 H (42.0-72.0) % Lymph % (Auto) 6.9 L (20-44) % [place] % (Auto) 11.1 H (0.0-11.0) % Eos % (Auto) 3.4 (0.0-7.0) % Baso % (Auto) 0.2 (0.0-3.0) % Neut # (Auto) 6.90 (1.7-7.0) K/uL Lymph # (Auto) 0.60 L (0.90-2.90) K/uL [place] # (Auto) 1.00 H (0.00-0.90) K/UL Eos # (Auto) 0.30 (0.00-0.50) K/uL Baso # (Auto) 0.02 (0.00-0.30) K/uL Abs Immat Gran (auto) 0.10 (0.00-0.30) K/uL Imm/Tot Granulo (auto) 1.1 % INR 1.04 (0.91-1.10) APTT 29 (23-33) Seconds Sodium 131 L (135-149) mmol/L Potassium 3.9 (3.6-5.1) mmol/L Chloride 98 (96-114) mmol/L Carbon Dioxide 26 (20-32) mmol/L Anion Gap 7 (7-15) mEq/L BUN 24 (7-30) mg/dL Creatinine 1.1 (0.5-1.5) mg/dL Estimated Creat Clear 52.54 Estimated GFR 67 ml/min Glucose 114 (60-115) mg/dL Calcium 8.6 (8.4-10.6) mg/dL Lab Acknowledgement Test Added POC Troponin I 0.03 (0.01-0.04) ng/ml ECG Data Attestation: I personally reviewed and interpreted this ECG as follows: Prior ECG tracings: not available for review Interpretation: Performed at 6:44 a.m. normal sinus rhythm rate 81, nonspecific ST changes, no acute ischemic changes, RI 192, QTC 464. Discharge Plan Discharge Clinical Impression: Skin tear of forearm without complication, Seizure disorder, Altered mental state, Hypertension Patient Disposition: Admitted As Observation
--- NOTE | 2023-06-18 06:30 | PC.NURSE ---
BS assessment noted large left skin tear left FA and abrasion right knee.
[2023-06-18 06:48] LABS: Basophils Absolute Auto 0.02 K/uL (0.00-0.30); Basophils Percent Auto 0.2 % (0.0-3.0); Eosinophils Percent Auto 3.4 % (0.0-7.0); Hemoglobin* 11.4 gm/dL (13.5-17.5); Immature Granulocytes Pct Auto 1.1 %; Lymphocytes Percent Auto 6.9 % (20-44); Mean Corpuscular HGB Conc 34 gm/dL (32-36); Mean Corpuscular Hemoglobin 29 pg (26-34); Mean Corpuscular Volume 87 fL (80-100); Monocytes Percent Auto 11.1 % (0.0-11.0); Neutrophils Percent Auto 77.3 % (42.0-72.0); Platelet Count* 140 K/uL (140-440); Red Blood Count 3.91 m/uL (4.30-5.90)
[2023-06-18 06:53] LABS: Troponin, Point-of-Care* 0.03 ng/ml (0.01-0.04)
[2023-06-18 07:04] LABS: Slide Review Reflex No
[2023-06-18 07:06] LABS: Chloride* 98 mmol/L (96-114); Potassium* 3.9 mmol/L (3.6-5.1); Sodium* 131 mmol/L (135-149)
[2023-06-18 07:09] LABS: Anion Gap 7 mEq/L (7-15); Blood Urea Nitrogen* 24 mg/dL (7-30); Carbon Dioxide* 26 mmol/L (20-32); Creatinine* 1.1 mg/dL (0.5-1.5); Est. Creatinine Clearance* 52.54; Estimated Glomerular Filt Rate 67 ml/min; Glucose* 114 mg/dL (60-115)
[2023-06-18 07:10] LABS: Calcium* 8.6 mg/dL (8.4-10.6)
[2023-06-18 07:26] LABS: INR 1.04 (0.91-1.10); Prothrombin Time 14.2 Seconds
[2023-06-18 07:28] LABS: Partial Thromboplastin Time* 29 Seconds (23-33)
[2023-06-18 07:45] LABS: Appearance Urine Cloudy (Clear); Bilirubin Urine Negative (Negative); Blood Urine 1+ (Negative); Color Urine Yellow (Yellow); Glucose Urine Negative (Negative); Ketones Urine Negative (Negative); Leukocyte Esterase Urine 3+ (Negative); Nitrite Urine Negative (Negative); Protein Urine 1+ (Negative); Specific Gravity Urine 1.015 (1.000-1.030); Urobilinogen Urine 0.2 (0.2-1.0)
[2023-06-18 07:57] LABS: Squamous Epithelial Cell Urine Few (None-Few); WBC Urine >100 (0-5)
[2023-06-18 07:58] LABS: Bacteria Urine Moderate
--- NOTE | 2023-06-18 08:21 | ED.NURSE ---
pt report given to titi BATES
[2023-06-18] MEDS: TAMSULOSIN HCL 0.4 MG CAPSULE PO (09:41)
[2023-06-18] MEDS: ACETAMINOPHEN 650 MG TABLET ER 1300 MG PO ×3 (09:41→23:33)
[2023-06-18] MEDS: SODIUM CHLORIDE 1 GM TABLET PO ×3 (09:41→18:04)
[2023-06-18] MEDS: carvediloL 6.25 MG TABLET PO ×2 (09:41→21:14)
[2023-06-18] MEDS: ASPIRIN EC 325 MG TABLET PO (09:42)
[2023-06-18] MEDS: DULOXETINE 30 MG CAPSULE DR PO (09:42)
[2023-06-18] MEDS: FINASTERIDE 5 MG TABLET PO (09:42)
[2023-06-18] MEDS: LOSARTAN POTASSIUM 50 MG TABLET 100 MG PO (09:42)
[2023-06-18] MEDS: SERTRALINE 50 MG TABLET 25 MG PO (09:43)
[2023-06-18] MEDS: LIDOCAINE 5% PATCH 1 PATCH TRANSDERMA (09:44)
[2023-06-18] MEDS: cefTRIAXone 1 GM in 0.9 % SODIUM CHLORIDE Mini-bag 100 ML IVPB (09:47)
[2023-06-18] MEDS: SODIUM CHLORIDE 0.9 % (FLUSH) 10 ML SYRINGE 5 ML IVF ×2 (09:48→21:15)
[2023-06-18 11:46] LABS: Amphetamine Screen Urine Negative (Negative); Barbiturate Screen Urine Negative (Negative); Benzodiazepines Screen Urine Negative (Negative); Cannabinoid Screen Urine Negative (Negative); Cocaine Screen Urine Negative (Negative); Methadone Screen Urine Negative (Negative); Methamphetamines Screen Urine Negative (Negative); Opiate Screen Urine Negative (Negative); Oxycodone Screen Urine Negative (Negative); Phencyclidine Screen Urine Negative (Negative); Tricyclic Antidepressant Urine Negative (Negative)
--- NOTE | 2023-06-18 13:07 | PM.IMHP1 ---
Hospitalist- H&P: HPI History of Present Illness Date Seen: 06/18/23 Chief complaint: fell, possible stroke Narrative: Familia Merrill is a 82 year old male with history of stroke and seizure disorder admitted to the hospital having been found down by his at home. Early this morning patient's heard a noise coming from another room. She went to find him laying on the floor of the bathroom tangled up in his walker. He did not respond verbally but he was awake and breathing. He would not follow simple commands or otherwise have any meaningful interaction with her. She called the neighbors to help and they were unable to get him up and so called 911. In February this year he was witnessed by his to have an unresponsive spell where he had non purposeful but not stereotypic tonic clonic shaking movements. He was hospitalized at that time and suspected have a seizure disorder. He was started on Keppra 500 mg b.i.d. for that. He is apparently not had further seizure activity since that time. MRI up obtained at that time showed no acute infarct but multiple chronic infarctions and microvascular ischemic change. He also had evidence of hemosiderin deposition suggestive of micro bleeds commonly a sequela lie of amyloid angiopathy. He was in a [facility] for [facility] for about 1 week following his last hospitalization. The events of February and last night both reflect a patient who is making nonpurposeful movements but not responding to or interacting with his environment. In both cases he had slow return to normal mentation under medical observation. When I see the patient this morning he is able to carry on a conversation but only gives very limited information about his current health status. His notes that he seems to be fine with his health until this episode occurred early this morning. Yesterday he seemed to be in good health without any obvious problems. His reports that she is managing his medicines though she reports that this is still a challenge for her. They have home health nursing assisting with training her to do this task. Patient reports no concerns about injuries from his fall at home. His notes that there was some blood on the floor in the bathroom and he has a significant skin tear on his left forearm and a small abrasion on his right knee. He also has and abrasion and erythema over his right mid back. Review of Systems Narrative: Other than the issues above patient has appeared to be well recently. No obvious infection, cold, cough, shortness of breath, pain, fever. He has been eating normally. Bowel and bladder function been normal. He has urinary frequency is in up to void multiple times at night. Previous TUR many years ago [facility] Medical History (Updated 06/18/23 @ 13:34 by Enrico Noyola MD) Cognitive impairment ?R41.89 - Other symptoms and signs involving cognitive functions and awareness (ICD-10) Right hip pain ?M25.551 - Pain in right hip (ICD-10) Seizure ?R56.9 - Unspecified convulsions (ICD-10) Hypertension ?I10 - Essential (primary) hypertension (ICD-10) Anxiety ?F41.9 - Anxiety disorder, unspecified (ICD-10) Insomnia ?G47.00 - Insomnia, unspecified (ICD-10) Hypertension ?I10 - Essential (primary) hypertension (ICD-10) Acute delirium ?R41.0 - Disorientation, unspecified (ICD-10) Surgical History (Updated 06/18/23 @ 13:21 by Enrico Noyola MD) S/P TURP ?Z90.79 - Acquired absence of other genital organ(s) (ICD-10) 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 is healthcare power of trial attorney. Code status is full. He does not smoke. He rarely drinks alcohol. What is your current living situation?: I presently have a place to live Problems where you live: no known problems Problems where you live details: na In the past 12 months, utilities in danger of being shut off: no In past 12 months, lack of transportation kept you from medical appts, meetings, work, or getting things needed for daily living: no In the past 12 mos, have been you worried that your food would run out before you had money to buy more?: never true In the past 12 mos, the food you bought just didn't last and you didn't have money to buy more?: never true Highest level of school completed/degree received: some college, no degree Smoking Status: Former smoker Do you use any of these nicotine containing products: None Second hand tobacco smoke exposure: No How often do you have a drink containing alcohol: never How often do you have six or more drinks on one occasion: Never AUDIT-C Alcohol total score: 0 Non-prescribed substance use: denies use Caffeine: Yes (1 cup) How often does anyone, including family, friends and others, physically hurt you: never How often does anyone, including family, friends and others, insult or talk down to you: never How often does anyone, including family, friends and others, threaten you with harm: never How often does anyone, including family, friends and others, scream or curse at you: never Little interest or pleasure in doing things: not at all Feeling down, depressed, or hopeless: not at all service: No Meds Home Medications and Allergies Home Medications Medication Instructions Recorded Confirmed Type amlodipine 2.5 mg tablet 1.25 mg PO DAILY 06/04/22 06/18/23 History aspirin 325 mg tablet (Nora 325 mg PO DAILY 06/04/22 06/18/23 History Aspirin) finasteride 5 mg tablet 5 mg PO DAILY 06/04/22 06/18/23 History nitroglycerin 0.4 mg sublingual 0.4 mg sublingual Q5M PRN 06/04/22 06/18/23 History tablet rosuvastatin 10 mg tablet 10 mg PO HS 06/04/22 06/18/23 History tamsulosin 0.4 mg capsule 0.4 mg PO DAILY 06/04/22 06/18/23 History zolpidem 5 mg tablet 2.5 mg PO HS PRN 06/18/23 06/18/23 History Home Medication Comments: reports that he stop taking zolpidem Allergies Allergy/AdvReac Type Severity Reaction Status Date / Time No Known Drug Allergies Allergy Verified 06/18/23 06:42 Exam Narrative: Exam Narrative: He is alert but tired appearing and in no apparent distress. Head is without apparent trauma. Eyes are normal. Pupils are equal round reactive to light. Extraocular moves are full. Visual butler are intact. He has no facial asymmetry. Oropharynx is normal. Tongue is midline. Neck is supple without mass or adenopathy. No tenderness with active range of motion. Respirations are clear to auscultation. Cardiovascular: S1, S2, regular rate and rhythm. No murmur gallop or rub. Abdomen: Bowel sounds active. Abdomen is soft without tenderness or mass. On his right mid back he has a area of erythema which also appears to be superficially abraded which is about 10 x 15 cm. No significant tenderness with palpation in this area. He has a moderate, course postural and resting tremor involving the left upper extremity more than the right upper extremity. Pulses, sensation and strength are full and symmetric in bilateral upper extremities. No pain with strength testing. [id number] testing is normal though slow. Lower extremity strength is 5/5 bilaterally in hip flexion, knee flexion and extension and ankle dorsiflexion and plantar flexion. Heel-harris is normal. Intact pulses and sensation in his feet. No significant edema. 3-4 cm skin tear on the left forearm and smaller superficial abrasion on the right patella and abrasion with erythema over the right back noted no other skin changes. Const: Vital Signs, click to edit/add: Vital Signs - 24 hr 06/18/23 06:19 06/18/23 06:37 06/18/23 06:47 Temperature 97.5 F L Pulse Rate 80 Pulse Rate [Right Radial] Respiratory Rate 18 Blood Pressure 166/110 H Blood Pressure [Le ft Arm] Blood Pressure [Le ft Upper Arm] 165/103 H Pulse Oximetry 98 94 92 Oxygen Delivery [facility] Room Air 06/18/23 06:48 06/18/23 07:00 06/18/23 07:01 Temperature Pulse Rate 78 82 82 Pulse Rate [Right Radial] Respiratory Rate Blood Pressure 177/91 H Blood Pressure [Le ft Arm] Blood Pressure [Le ft Upper Arm] Pulse Oximetry 92 93 93 Oxygen Delivery [facility] 06/18/23 07:15 06/18/23 07:16 06/18/23 07:30 Temperature Pulse Rate 84 79 83 Pulse Rate [Right Radial] Respiratory Rate Blood Pressure 189/101 H Blood Pressure [Le ft Arm] Blood Pressure [Le ft Upper Arm] Pulse Oximetry 93 92 90 Oxygen Delivery [facility] 06/18/23 07:32 06/18/23 07:45 06/18/23 07:47 Temperature Pulse Rate 77 80 81 Pulse Rate [Right Radial] Respiratory Rate Blood Pressure 192/104 H 174/89 H Blood Pressure [Le ft Arm] Blood Pressure [Le ft Upper Arm] Pulse Oximetry 93 91 91 Oxygen Delivery [facility] 06/18/23 07:48 06/18/23 08:00 06/18/23 08:02 Temperature Pulse Rate 80 86 78 Pulse Rate [Right Radial] Respiratory Rate Blood Pressure 168/91 H Blood Pressure [Le ft Arm] Blood Pressure [Le ft Upper Arm] Pulse Oximetry 89 88 92 Oxygen Delivery Me [facility] 06/18/23 08:15 06/18/23 08:31 06/18/23 09:08 Temperature 98.5 F 97.5 F L Pulse Rate 79 Pulse Rate [Right Radial] 79 Respiratory Rate 16 18 18 Blood Pressure 169/94 H Blood Pressure [Le ft Arm] 169/94 H Blood Pressure [Le ft Upper Arm] Pulse Oximetry 91 92 92 Oxygen Delivery [facility] Room Air Room Air Room Air Documenting provider has reviewed patient's vital signs: yes Hospitalist - H&P: Result Labs Labs: Short CBC 06/18/23 Range/Units 06:40 WBC 8.90 (4.50-11.00) K/uL Hgb 11.4 L (13.5-17.5) gm/dL Hct 34.0 L (37.0-53.0) % Plt Count 140 (140-440) K/uL BMP 06/18/23 06:40 Sodium 131 L Potassium 3.9 Chloride 98 Carbon Dioxide 26 BUN 24 Creatinine 1.1 Glucose 114 Calcium 8.6 Urine 06/18/23 Range/Units 07:30 Urine Color Yellow (Yellow) Urine Appearance Cloudy A (Clear) Urine pH 7.0 (5.0-8.5) Ur Specific [place] 1.015 (1.000-1.030) Urine Protein 1+ A (Negative) Urine Glucose (UA) Negative (Negative) Assessment and Plan Assessment and plan (1) Altered mental state: Problem comment: This appears to be a similar event as he had in February 2023 when it was thought most likely to be a seizure. This continues to be the most likely explanation. Will monitor for recurrent seizures, illness that could trigger seizures and other complications. Anticipate recovery from his initial postictal status of being poorly responsive. He received an IV load of Keppra. Will resume is capped for at a higher dose of 750 b.i.d. orally. Keppra blood level pending. Refer to Neurology as an outpatient. Status: Acute (2) Seizure disorder: Problem comment: Likely recurrent. Increase Keppra. Monitor from recovery from the seizure, recurrent seizures and complications. Status: Acute (3) Skin tear of forearm without complication: Problem comment: Good wound care Status: Acute (4) Hypertension: Problem comment: Continue home medicines. is uncertain about his current medications that she is managing Status: Acute (5) Cognitive impairment: Problem comment: [place] score 18/30 in February 2023. [facility] the [facility] score of 26/30 February of 2023 Status: Acute (6) UTI (urinary tract infection): Problem comment: Unclear if he is symptomatic at this point. His cognitive evaluation is uncertain and does have longstanding urinary frequency without obvious dysuria or fever at this time. Treat with antibiotics pending his clinical course Status: Acute (7) Urinary retention: Problem comment: Has about 420 mL of postvoid residual today. Discuss with patient and . Will forego catheter and just continue to monitor voiding. [facility] Status: Acute Plan Admit to the hospital for monitoring of his altered mental status, monitoring for recurrent unresponsive spells or seizures, treatment of UTI, assessment of neurologic function and mobility. Total time spent today is 80 minutes, 50 minutes in coordination of care discussing with and daughter and patient and other providers management of these spells, urinary problems, seizure disorder.
--- NOTE | 2023-06-18 14:07 | PC.NURSE ---
Shift note: Pt very sleepy this afternoon. Wakes with name call and light touch, answers questions appropriately, but declines meal trays and states he is very tired. Swallows pills with thin liquids easily. VS WNL and LS COA. Able to assist in turning and repositioning although he states he feels weak. Seizure pads in place. Stands at bedside to use urinal with assist x1 and walker, pt voided 350cc this afternoon with a 256cc residual on bladder scan. Tele= 1st degree HB. He appears to be resting comfortably in bed, call light in reach.
--- NOTE | 2023-06-18 14:31 | CRLHL7_ITS ---
For Patients: As a result of the Cures Act, medical imaging exams and procedure reports are released immediately into your electronic medical record. You may view this report before your referring provider. If you have questions, please contact your health care provider. 4 VIEWS chest and left rib detail INDICATION: Injury. Pain. IMPRESSION: Lungs show slight hyperinflation suggesting air trapping or obstructive disease. Heart size is upper normal with normal vascular pattern Lungs are clear with no signs of pneumothorax or pleural fluid No displaced rib fracture is identified. No other suspicious osseous lesions. Degenerative arthrosis changes in the left shoulder. Dictated by Maco Modi MD @ 06/18/2023 4:43:35 PM (Electronically Signed)
[2023-06-18] MEDS: OXYCODONE 5 MG TABLET 2.5 MG PO (19:14)
[2023-06-18] MEDS: ROSUVASTATIN CALCIUM 10 MG TABLET PO (21:14)
[2023-06-18] MEDS: levETIRAcetam 500 MG TABLET 750 MG PO (21:15)
--- NOTE | 2023-06-18 22:58 | PC.NURSE ---
[id number] Pt pleasant and cooperative, no seizure activity noted this shift, ambulated halls x1 with walker, GB, SBA. Appetite back for dinner, tray ordered and pt ate without difficulty. c/o pain to L ribs, prn x1 administered with relief, ice applied to site but pt states this did not help alleviate pain much. some forgetfulness noted this evening. Pt talked to daughter and on phone.
[2023-06-19] VITALS (9 sets, daily range): BP systolic 151–176; BP diastolic 84–102; PULSE 70–85; RESP 16–20; TEMP 36.3–37.1; O2SAT 93–95
--- NOTE | 2023-06-19 06:02 | PC.NURSE ---
Shift note: Pt is alert and oriented however has some short term memory loss and is slow to respond. He ambulates with assist of 1, belt and walker, states himself that he is unsteady, walks to the bathroom. He is voiding, no c/o lightheadedness or dizziness, no headache, he is pleasant and cooperative with cares.
[2023-06-19] MEDS: cefTRIAXone 1 GM in 0.9 % SODIUM CHLORIDE Mini-bag 100 ML IVPB (08:20)
[2023-06-19] MEDS: SODIUM CHLORIDE 1 GM TABLET PO ×3 (08:24→17:30)
[2023-06-19] MEDS: SODIUM CHLORIDE 0.9 % (FLUSH) 10 ML SYRINGE 5 ML IVF ×2 (08:25→20:16)
[2023-06-19] MEDS: LIDOCAINE 5% PATCH 1 PATCH TRANSDERMA (08:25)
[2023-06-19] MEDS: levETIRAcetam 500 MG TABLET 750 MG PO ×2 (08:26→20:14)
[2023-06-19] MEDS: LOSARTAN POTASSIUM 50 MG TABLET 100 MG PO (08:27)
[2023-06-19] MEDS: TAMSULOSIN HCL 0.4 MG CAPSULE PO (08:28)
[2023-06-19] MEDS: SERTRALINE 50 MG TABLET 25 MG PO (08:28)
[2023-06-19] MEDS: DULOXETINE 30 MG CAPSULE DR PO (08:28)
[2023-06-19] MEDS: carvediloL 6.25 MG TABLET PO ×2 (08:29→20:13)
[2023-06-19] MEDS: ASPIRIN EC 325 MG TABLET PO (08:30)
[2023-06-19] MEDS: FINASTERIDE 5 MG TABLET PO (08:30)
[2023-06-19] MEDS: CARBIDOPA-LEVODOPA 25-100 TABLET 1 TAB PO ×4 (09:31→20:15)
[2023-06-19] MEDS: ACETAMINOPHEN 650 MG TABLET ER 1300 MG PO ×2 (10:08→18:16)
[2023-06-19 12:18] LABS: Keppra (Levetiracetam) 16 ug/mL (10-40)
[2023-06-19] MEDS: AMOXICILLIN/CLAVULANATE 875 mg/125 mg TABLET PO ×2 (13:18→17:30)
--- NOTE | 2023-06-19 15:23 | P.IMPN_ITS ---
Progress Note: A&P Assessment and plan (1) Altered mental state: Problem details: This appears to be a similar event as he had in February 2023 when it was thought most likely to be a seizure. This continues to be the most likely explanation. Will monitor for recurrent seizures, illness that could trigger seizures and other complications. Anticipate recovery from his initial postictal status of being poorly responsive. He received an IV load of Keppra. Will resume is capped for at a higher dose of 750 b.i.d. orally. Keppra blood level pending. Refer to Neurology as an outpatient. He has a neurology appointment at [facility] in [place] on July 23 at 1:15 p.m. in the [facility] Status: Acute (2) Seizure disorder: Problem details: Likely recurrent. Increase Keppra. Monitor from recovery from the seizure, recurrent seizures and complications. Status: Acute (3) Skin tear of forearm without complication: Problem details: Good wound care Status: Acute (4) Hypertension: Problem details: Continue home medicines. is uncertain about his current medications that she is managing Status: Acute (5) Cognitive impairment: Problem details: [place] score 18/30 in February 2023. [facility] score of 26/30 February of 2023 Status: Acute (6) UTI (urinary tract infection): Problem details: Unclear if he is symptomatic at this point. His cognitive evaluation is uncertain and does have longstanding urinary frequency without obvious dysuria or fever at this time. Treat with antibiotics pending his clinical course Status: Acute (7) Urinary retention: Problem details: Has about 420 mL of postvoid residual today. Discuss with patient and . Will forego catheter and just continue to monitor voiding. Previous TUR at [place] many years ago Status: Acute (8) Parkinson's syndrome: Problem details: Has course pill rolling tremor of the left upper extremity and bradykinesia. Trial of Sinemet. Continue this if effective. Outpatient Neurology follow-up. Status: Acute Plan Continue in hospital for monitoring and management of disabilities, seizure disorder, parkinsonian syndrome, UTI. Probable discharge to home with tomorrow for outpatient follow-up Time Spent With Patient Total time spent: Total time spent today is 45 minutes, 30 minutes in coordination of care and discussing with patient and and daughter and other providers ongoing management of these seizures, parkinsonian syndrome, urinary problems Subjective Date Seen: 06/19/23 Interval history: 82-year-old male admitted to the hospital with unresponsive spell that occurred in the middle of night prior to admission. His awoke in the night hearing him making noise. She found him on the bathroom floor with nonpurposeful thrashing of his arms and legs but not responding to his environment. She was not able to communicate with him. He did follow commands. He had a prolonged period of being unresponsive. Even on arrival in the emergency department he was poorly responsive to staff there. The non purposeful moving of his arms and legs had resolved by then. He had had a previous episode in February 2023 where his observed him to become unresponsive and having nonpurposeful movements as well. This was thought to be a seizure. He was started on Keppra at that time. MRI of the brain showed multiple old strokes. This event was thought to be a recurrent seizure. He was admitted to the hospital for ongoing evaluation management. Initially patient was having difficulty giving history but within several hours of adm ission to the hospital he was back to his baseline mental status. He appears to have dementia however and is unable to give much detail to his history any does not remember any of the events leading to the hospital stay. He did not report any significant illness. Did have some injuries including a large skin tear on his left arm and an abrasion on his right knee and an abrasion on his right back. No rib fracture was identified. He was also seen to have a UTI. He had pyuria and urine culture is now growing what is suspected to be a group D strep species. He was also seen to have a coarse resting tremor of his left arm primarily and to the lesser extent his right arm and minimally in his legs. No previous diagnosis of tremor and his thinks that this is something new in the last couple months. He is started on a trial of Sinemet for a parkinsonian syndrome to see if he responds. He was monitored for recurrent seizure and he had no evidence of that. He received intravenous Keppra in the emergency department and then increase in his oral Keppra to 750 b.i.d.. Blood level of Keppra is pending Exam Narrative: Exam Narrative: He is alert and pleasant and appears in no distress. He knows he is in the hospital. He does not recall much of his recent medical history or current events. Head is without trauma. No facial asymmetry. Eyes are normal. Respirations are clear to auscultation. Cardiovascular: S1, S2, regular rate and rhythm. Abdomen is soft without tenderness or mass. Tremor is unchanged from yesterday in his left arm. [id number] is normal strength testing in his upper extremities normal. Lower extremities are also at baseline , normal motion and strength bilaterally. Const: Vital Signs, click to edit/add: Vital Signs - 24 hr 06/18/23 16:40 06/18/23 19:00 06/18/23 23:00 Temperature 98.0 F Pulse Rate 72 76 Pulse Rate [Pulse Oximeter] 67 Respiratory Rate 16 Blood Pressure [Le ft Arm] 137/67 Pulse Oximetry 97 Oxygen Delivery Me thod Room Air 06/18/23 23:00 06/18/23 23:00 06/19/23 03:00 Temperature 98.0 F 98 F Pulse Rate Pulse Rate [Pulse Oximeter] 67 76 74 Respiratory Rate 16 16 18 Blood Pressure [Le ft Arm] 152/82 H 151/96 H Pulse Oximetry 95 93 Oxygen Delivery Me thod Room Air Room Air 06/19/23 07:01 06/19/23 07:30 06/19/23 11:20 Temperature 97.9 F 97.5 F L Pulse Rate 77 Pulse Rate [Pulse Oximeter] 85 75 Respiratory Rate 18 16 Blood Pressure [Le ft Arm] 176/88 H 167/84 H Pulse Oximetry 93 95 Oxygen Delivery Me thod Room Air Room Air Documenting provider has reviewed patient's vital signs: yes Labs Labs: Laboratory Results - last 24 hr 06/18/23 06:40 Levetiracetam 16
--- NOTE | 2023-06-19 17:52 | PC.NURSE ---
Pt alert and oriented with some confusion. Pt pleasant and cooperative. Pt assist of one with gait belt and walker. Pt had family during mid-day. Pt had complaints of pain when taking deep breaths; tolerated with scheduled medication. Pt up in chair multiple times during shift.?
[2023-06-19] MEDS: ROSUVASTATIN CALCIUM 10 MG TABLET PO (20:15)
--- NOTE | 2023-06-20 06:48 | PC.NURSE ---
End of Shift [id number] ? Pt alert, oriented to self, time, situation, but displayed instances of brief confusion when waking from sleeping. Pt easily reoriented and cooperative to cares. Pt unable to rate pain during shift, but stated that he ?would take Tylenol if RN offered?. RN explained that Tylenol was available per AUG dosing schedule at 0200, and pt expressed that he wished not to be woken up for medication. Pt up with walker to bathroom with standby assistance. Continent of bladder, VSS, afebrile, tolerating RA. Tremor noted in L hand stronger than tremor in R hand. Pt shared that being in the hospital is the only time him and his have spent apart, RN provided emotional support and comfort. Observed to sleep during shift, appears to be resting comfortably at end of shift. ?
[2023-06-20] MEDS: SODIUM CHLORIDE 1 GM TABLET PO ×2 (07:37→11:48)
[2023-06-20] MEDS: AMOXICILLIN/CLAVULANATE 875 mg/125 mg TABLET PO (07:37)
[2023-06-20 07:44] VITALS: BP 205/111; PULSE 76; PULSE 82; PULSE 86; RESP 22; TEMP 36.9; O2SAT 93
[2023-06-20 08:14] VITALS: BP 190/85; PULSE 76
[2023-06-20] MEDS: carvediloL 6.25 MG TABLET PO (09:19)
[2023-06-20] MEDS: CARBIDOPA-LEVODOPA 25-100 TABLET 1 TAB PO ×2 (09:20→12:52)
[2023-06-20] MEDS: LOSARTAN POTASSIUM 50 MG TABLET 100 MG PO (09:20)
[2023-06-20] MEDS: levETIRAcetam 500 MG TABLET 750 MG PO (09:20)
[2023-06-20] MEDS: TAMSULOSIN HCL 0.4 MG CAPSULE PO (09:20)
[2023-06-20] MEDS: DULOXETINE 30 MG CAPSULE DR PO (09:21)
[2023-06-20] MEDS: SERTRALINE 50 MG TABLET 25 MG PO (09:21)
[2023-06-20] MEDS: FINASTERIDE 5 MG TABLET PO (09:21)
[2023-06-20] MEDS: AMLODIPINE 5 MG TABLET 2.5 MG PO (09:21)
[2023-06-20] MEDS: ASPIRIN EC 325 MG TABLET PO (09:21)
[2023-06-20] MEDS: LIDOCAINE 5% PATCH 1 PATCH TRANSDERMA (09:22)
[2023-06-20] MEDS: SODIUM CHLORIDE 0.9 % (FLUSH) 10 ML SYRINGE 5 ML IVF (09:25)
[2023-06-20] MEDS: ACETAMINOPHEN 650 MG TABLET ER 1300 MG PO (10:31)
[2023-06-20 10:46] VITALS: PULSE 82
[2023-06-20 11:12] VITALS: BP 174/92; PULSE 85; RESP 22; TEMP 36.8; O2SAT 93
--- NOTE | 2023-06-20 13:28 | P.DS_ITS ---
DS: Providers Provider Date Seen: 06/20/23 Date of admission: 06/19/23 08:53 Primary care physician: Sachin Baires MD Admitting Clinician: Enrico Noyola MD Attending Physician on discharge: Enrico Noyola MD DS: Diagnosis Discharge Diagnosis (1) Altered mental state: Status: Acute Problem details: This appears to be a similar event as he had in February 2023 when it was thought most likely to be a seizure. Seizure continues to be the most likely explanation. No recurrent seizures observed Anticipate recovery from his initial postictal status of being poorly responsive. He received an IV load of Keppra. Will resume Keppra at a higher dose of 750 b.i.d. orally. Keppra blood level pending. Refer to Neurology as an outpatient. He has a neurology appointment at [facility] in [place] on July 23 at 1:15 p.m. in the afternoon, Dr. Domínguez. (2) Seizure disorder: Status: Acute Problem details: Likely recurrent. Increase Keppra. Monitor from recovery from the seizure, recurrent seizures and complications. (3) Skin tear of forearm without complication: Status: Acute Problem details: Good wound care (4) Hypertension: Status: Acute Problem details: Continue home medicines. is uncertain about his current medications that she is managing. Increase amlodipine to 2.5 mg daily for elevated blood pressures (5) Cognitive impairment: Status: Acute Problem details: Garza score 18/30 in February 2023. [facility] the [facility] score of 26/30 February of 2023. Patient scored 22/30 on Garza 06/20/2023 (6) UTI (urinary tract infection): Status: Acute Problem details: Unclear if he is symptomatic at this point. His cognitive evaluation is uncertain and does have longstanding urinary frequency without obvious dysuria or fever at this time. Appears to be Enterococcus species. Treat with Augmentin for 5 days. (7) Urinary retention: Status: Acute Problem details: Has about 420 mL of postvoid residual today. Discuss with patient and . Will forego catheter and just continue to monitor voiding. Previous TUR at [facility] many years ago (8) Parkinson's syndrome: Status: Acute Problem details: Has coarse pill rolling tremor of the left upper extremity and bradykinesia. Trial of Sinemet. Tremor appears improved today. Outpatient Neurology to follow up DS: Summary Hospital Course Hospital Course: 82-year-old male admitted to the hospital after being found down with nonpurposeful flailing movements by his . He was unresponsive at the time. Brought to the emergency room where he had stopped is flailing movements but was still poorly responsive. He subsequently improved and over the next several hours return to his normal level of consciousness and mental status. He had had a previous episode in February 2023 that was similar to this that was diagnosed as a seizure. This was felt to be similarly a seizure. He has pending neurology follow-up in 1 month. Other evaluation during hospital stay included an abnormal urinalysis with a urine culture growing on preliminary report what looks like and Enterococcus species he is treated with Augmentin for a UTI though he is not clearly symptomatic. Did have some urinary retention with about 420 mL of retained urine on his postvoid bladder scan. Decision was made to forego Chapman catheter for now. Previous history of TUR at [facility]. He sustained a skin tear on his left arm which will require ongoing wound care with periodic cleaning and dressing changes. He had some right rib injuries without apparent fracture treated symptomaticly. He was noted to have a resting coarse tremor in his left hand, pill rolling tremor, as well as bradykinesia. This was suspected to be a parkinsonian syndrome and he was started on Sinemet which appeared to give some benefit with his tremor. Status at Discharge Functional status at discharge: uses cane/walker Overall status at discharge: patient is progressing back to baseline Time Spent with Patient Time attestation: Total time spent providing and/or coordinating discharge services: Time spent: Greater than 30 minutes Exam Narrative: Exam Narrative: He is alert and appears in no distress. Mood and affect are brighter today. Respirations are clear to auscultation. Cardiovascular: S1, S2, regular rate and rhythm. He moves all 4 extremities quite well. The resting tremor in his l eft upper extremity is moderately improved. Abdomen is soft without tenderness. Const: Vital Signs, click to edit/add: Vital Signs - 24 hr 06/19/23 15:00 06/19/23 15:15 06/19/23 19:00 Temperature 98.8 F 97.6 F Pulse Rate 75 Pulse Rate [Pulse Oximeter] 76 73 Respiratory Rate 18 20 Blood Pressure [Le ft Arm] 170/91 H 173/102 H Blood Pressure [Ri ght Armn] Pulse Oximetry 94 95 Oxygen Delivery Me thod Room Air Room Air 06/19/23 21:53 06/19/23 22:45 06/20/23 07:44 Temperature 97.3 F L 98.5 F Pulse Rate 82 Pulse Rate [Pulse Oximeter] 70 86 Respiratory Rate 16 22 Blood Pressure [Le ft Arm] 172/99 H 205/111 H Blood Pressure [Ri ght Armn] Pulse Oximetry 94 93 Oxygen Delivery Me thod Room Air Room Air 06/20/23 07:44 06/20/23 07:44 06/20/23 08:14 Temperature Pulse Rate 82 Pulse Rate [Pulse Oximeter] 76 76 Respiratory Rate 22 Blood Pressure [Le ft Arm] Blood Pressure [Ri ght Armn] 190/85 H Pulse Oximetry Oxygen Delivery Me thod 06/20/23 10:46 06/20/23 11:12 Temperature 98.2 F Pulse Rate 82 Pulse Rate [Pulse Oximeter] 85 Respiratory Rate 22 Blood Pressure [Le ft Arm] Blood Pressure [Ri ght Armn] 174/92 H Pulse Oximetry 93 Oxygen Delivery Me thod Room Air Documenting provider has reviewed patient's vital signs: yes DS: Data Data Completed and Pending Labs on day of discharge: Preliminary micro results at discharge 06/18/23 Unknown Urine Culture - Preliminary Urine,Clean Catch Gram positive cocci Discharge Plan Discharge Disposition: Home, Self-Care Date of Admission: 06/19/23 08:53 Attending Provider on Discharge: Enrico Noyola Primary Care Provider: Sachin Baires Condition: Improved Anticipated Discharge Date/Time: 06/20/23 09:55 Discharge Medications: New carbidopa-levodopa 25-100 mg Tablet 1 tab PO QID Qty: 120 0RF sertraline 50 mg Tablet 25 mg PO DAILY Qty: 30 0RF amoxicillin-pot clavulanate 875-125 mg Tablet 1 tab PO BIDWM Qty: 10 0RF Continued carvedilol 6.25 mg tablet 6.25 mg PO BID Qty: 60 3RF acetaminophen 650 mg Tablet Extended Release 1,300 mg PO Q8H Qty: 90 0RF lidocaine [Lidoderm] 5 % Adhesive Patch,Medicated 1 patch transdermal DAILY Qty: 15 0RF Rx Instructions: OTC, do not run insurance sodium chloride 1,000 mg Tablet,Soluble 1,000 mg PO TIDWM Qty: 90 0RF finasteride 5 mg tablet 5 mg PO DAILY rosuvastatin 10 mg tablet 10 mg PO HS tamsulosin 0.4 mg capsule 0.4 mg PO DAILY Patient Comments: aspirin [Nora Aspirin] 325 mg tablet 325 mg PO DAILY nitroglycerin 0.4 mg tablet, sublingual 0.4 mg sublingual Q5M PRN Rx Instructions: do not exceed 3 doses per episode losartan 100 mg tablet 100 mg PO DAILY Qty: 90 3RF duloxetine 30 mg capsule,delayed release(DR/EC) 30 mg PO DAILY Qty: 60 0RF Rx Instructions: continue 1 cap (30mg) daily until 29 March, then increase to two tabs (60mg) daily therafter Changed levetiracetam 500 mg tablet 750 mg PO BID Qty: 90 0RF amlodipine 2.5 mg tablet 2.5 mg PO DAILY Qty: 30 0RF Discontinued zolpidem 5 mg tablet 2.5 mg PO HS PRN Patient Comments: MAY REPEAT WITH ANOTHER 2.5MG PRN Discharge Orders: Discharge Order (Routine); Ordered 06/20/23 Ordered By: Enrico Noyola Patient Education: Carbidopa/Levodopa (By mouth), Amoxicillin/Clavulanate Potassium (By mouth), Sertraline (By mouth), Recurrent Seizures in Adults (DC) Additional Instructions: Follow-up with the neurologist, Dr Domínguez, at [facility] in 1 month as previously scheduled. Medication changes: Increase levetiracetam to 750 mg twice a day due to seizure Increase amlodipine to 2.5 mg daily due to high blood pressure Start taking carbidopa levodopa to help with tremor from suspected Parkinson's disease Start taking amoxicillin clavulanate for urinary tract infection Activity Level: Use Walker Discharge Diet: Regular Follow Up Appointments: Silvina Crook [Other] (keep appointment as previously scheduled.) Pranav Crook [Referring] - (Keep appointment as previously scheduled) Sachin Baires MD [Primary Care Provider] - Forms: [employer] Info Instructions
--- NOTE | 2023-06-20 14:48 | PC.NURSE ---
Discharge: Patient pleasant and cooperative, Alert and oriented x3. Patient denies pain or rates pain 1-2/10 with coughing, scheduled tylenol given. Patient hypertensive, but vitally stable, lungs course, BS WNL, IV removed, catheter intact. Patient SBA, walker. Patient urinating, No BM this shift. Patient tolerating regular diet. Patient signed belongings sheet and discharge form. Discharge information was reviewed with patient, then reviewed again when family arrived. Patient left the floor by wheelchair to home at 1339. Patient went home with lidocaine patch left lower abdomen, patients family known to remove patch this evening.
--- NOTE | 2023-06-20 15:32 | PC.SOCIAL ---
Discharge summary- Pt has home care through [facility], [facility] currently. Contacted [facility] at [phone] and verified pt was receiving Snf, PT, and OT. Informed that pt would be discharging from [facility] today. [facility] requests that H&P, medication list, and discharge summary are sent to them to resume home care services. Provided update to Charge Nurse. Secure e-mailed requested documents to [employer] sales representative aircraft, Sakina Perez at [email or web address]. Confirmed that documents were received. Social work will follow up as needed.
== END 2023-06-20 13:39 | disposition home or self-care (01) | DRG 101 ==
LOC: ED 07:43 → MEDSURG 08:08
PROVIDERS: Admitting Provider Family Medicine; Emergency Provider Family Medicine; PCP Internal Medicine; Visit Provider Family Medicine
DX: G40.909 Epilepsy, unspecified, not intractable, without status epilepticus (principal); N39.0 Urinary tract infection, site not specified; B95.2 Enterococcus as the cause of diseases classified elsewhere; R33.9 Retention of urine, unspecified; G20.C Parkinsonism, unspecified; R41.82 Altered mental status, unspecified; I10 Essential (primary) hypertension; S51.812A Laceration without foreign body of left forearm, initial encounter; S80.211A Abrasion, right knee, initial encounter; W19.XXXA Unspecified fall, initial encounter; F41.9 Anxiety disorder, unspecified; G47.00 Insomnia, unspecified
CPT/HCPCS: 36415; 51798; 70450; 70496; 70498; 71101; 80048; 80177; 80306; 81001; 82962; 84484; 85025; 85610; 85730; 87077; 87086; 87186; 94761; 97110; 97112; 97116; 97161; 97165; 97530; 97535; 99285; G0378; A9270; J0696; J1953; Q9967

== ENCOUNTER 2023-07-04 10:00 | Outpatient (CLI) | payer MEDICARE, OTHER, SELFPAY ==
--- OUTSIDE RECORDS SUMMARY | 2023-07-06 08:30 | XMS_ITS | Clinical Summary ---
Author Name Unknown Organization [facility] Address [address] [place] [address] Care Team Providers Care Radiological Defense Officer Name Role Phone Elsewhere, Pcp Primary Care Provider Unavailabl e Source Comments Patient records contain information from all sites at [facility]. For routine questions regarding patient records, call [phone] during business hours, M-F 8:00 AM - 5:00 PM Central Time. Record requests for emergency care only can be directed to [phone] at any time.[facility] Allergies No known active allergies Medications Medication Sig Dispensed Refills Start Date End Date Status POLYETHYLENE GLYCOL 3350 ORAL Take 1 g by mouth as needed. MiraLAX powder 0 11/17/2016 Active lanolin/mineral oil/petrolatum (ARTIFICIAL TEARS OPHT) Administer 1 drop into affected eye(s) as needed. As needed (both eyes). 0 04/06/2015 Active aspirin 325 mg tablet Take 1 tablet by mouth daily. 0 09/23/2014 Active acetaminophen (TYLENOL) 500 mg tablet Take 1-2 tablets by mouth 3 (three) times a day as needed. pain 0 09/08/2013 Active loratadine (CLARITIN) 10 mg tablet Take 10 mg by mouth daily. 0 Active amLODIPine (NORVASC) 2.5 mg tabletIndications :Hypertension Personal History TAKE ONE TABLET BY MOUTH ONE TIME DAILY 90 tablet 3 02/08/2022 Active Additional Information Patient taking differently: Patient taking half of 2.5, Reported on 07/13/2022 losartan-hydroCHL OROthiazide (HYZAAR) 100-25 mg per tabletIndications :Hypertension Personal History Take 1 tablet by mouth every morning. 100 tablet 3 04/29/2022 Active carvediloL (COREG) 12.5 mg tabletIndications :Hypertension Personal History Take 1 tablet (12.5 mg total) by mouth 2 (two) times a day with meals. 200 tablet 3 04/29/2022 Active nitroglycerin (NITROSTAT) 0.4 mg SL tabletIndications :Coronary Artery Disease Without Angina Pectoris Place 1 tablet under the tongue every 5 minutes if needed for chest pain. max 3 tablets/15 minutes. 25 tablet 6 06/20/2022 Active zolpidem (AMBIEN) 10 mg tabletIndications :Insomnia TAKE ONE TABLET BY MOUTH ONE TIME DAILY AT BEDTIME 90 tablet 1 10/12/2022 Active sertraline (ZOLOFT) 50 mg tabletIndications :Hypertension Essential Primary TAKE ONE TABLET BY MOUTH ONE TIME DAILY 90 tablet 2 01/23/2023 Active rosuvastatin (CRESTOR) 10 mg tabletIndications :Coronary Artery Disease Without Angina Pectoris TAKE ONE TABLET BY MOUTH ONE TIME DAILY in the evening. 90 tablet 2 01/23/2023 Active traMADoL (ULTRAM) 50 mg tabletIndications :Chronic Pain/Nonacute Pain Take 1 tablet (50 mg total) by mouth 3 (three) times a day Indications: Chronic Pain/Nonacute Pain. 270 tablet 0 02/13/2023 Active tamsulosin (FLOMAX) 0.4 mg 24 hr capsuleIndication s:Benign Prostatic Hyperplasia Without Obstruction Take 1 capsule (0.4 mg total) by mouth daily. 90 capsule 3 06/27/2023 Active tamsulosin (FLOMAX) 0.4 mg 24 hr capsuleIndication s:Benign Prostatic Hyperplasia Without Obstruction TAKE ONE CAPSULE BY MOUTH ONE TIME DAILY 90 capsule 3 02/08/2022 4 Discontinue d(Reorder) Hospital, Clinic, or Other Facility Administered Medication Ordered Dose Route Frequency Start Date End Date Status lidocaine-EPINEPHrine 1%-1:200,000 injection 2-50 mL (XYLOCAINE W/EPI) 2 - 50 mL inj As needed 06/27/2018 Acti ve Active Problems Problem Noted Date Diagnosed Date Angina Pectoris Unspecified 05/22/2022 Hypertension Essential Primary 01/27/2022 Bursitis Trochanteric Right 12/24/2020 Gluteal Tendinitis Right Hip 12/24/2020 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 Benign Prostatic Hyperplasia Without Obstruction 12/24/2020 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 Benign Prostatic Hyperplasia Without Obstruction (Primary Dx) 06/27/2023 2:45 PM HOST Virtual Visit Division of Nephrology and Hypertension in [place], [place] [address] [place] [phone] Antelmo Reese M.D. Benign Prostatic Hyperplasia Without Obstruction 06/21/2023 Clinical Communication Division of Nephrology and Hypertension in [place], [place] [address] [place] [phone] Antelmo Reese M.D. Recently hospitalized 05/18/2023 Clinical Communication Division of Nephrology and Hypertension in [place], [place] [address] [place] [phone] Ange Leonard RChristianNChristian three month chronic opioid follow up 04/14/2023 Orders Only Division of Nephrology and Hypertension in [place], [place] [address] [place] [phone] Antelmo Reese M.D. 04/14/2023 Clinical Communication Division of Nephrology and Hypertension in [place], [place] [address] [place] [phone] Antelmo Reese M.D. from Last 3 Months Immunizations Name Administration Dates Next Due HZV (ZOSTAVAX) 03/02/2009 Influenza (IM) Preservative Free 03/15/2009 Influenza Split 03/25/2008,03/25/2007 PCV13 04/12/2015 PPSV23 03/25/2006 Td, (Adult) Unspecified 03/25/2009,06/25/2000, Tdap 04/11/2012 influenza high dose (65 year s or older) (PF) 04/15/2019,04/16/2017,04/12/2016,2014,04/08/2014,04/07/2013,04/11/2012,1 ,04/20/2010 Family History Medical History Relation Name Comments Alcohol abuse Father MYRNA BALDERAS Diabetes Father MYRNA BALDERAS Suicide Attempts Father MYRNA BALDERAS Arthritis Mother DRE PAULY Colon cancer Mother DRE PAULY Hyperlipidemia Mother DRE PAULY Hypertension Mother DRE PAULY Osteoporosis Mother DRE PAULY Stroke Mother DRE PAULY Transient ischemic attack Mother DREABRAHAM COATS Skin cancer Sister OMID DOE Sleep apnea Sister OMID DOE Blindness Neg Hx Glaucoma Neg Hx Macular degeneration Neg Hx Vision loss Neg Hx Relation Name Status Comments Father MYRNA BALDERAS Mother DRE DOE Social History Tobacco Use Types Packs/Day Years Used Date Smoking Tobacco: Former Cigarettes 1 60 0 [birth year]/23/1954 - 11/19/2004 Smokeless Tobacco: Never Tobacco Cessation:Counseling Given: No Alcohol Use Standard Drinks/Week Comments No 0 (1 standard drink = 0.6 oz pur e alcohol) none since 2004 Humiliation, Afraid, Rape, and Kick questionnair e Answer Date Recorded Within the last year, have y ou been afraid of your partner or ex-partner? No 05/22/2022 Within the last year, have y ou been humiliated or emotionally abused in other ways by your partner or ex-partner? No Within the last year, have y ou been kicked, hit, slapped, or otherwise physically hurt by your partner or ex-partner? No 05/22/2022 Within the last year, have y ou been raped or forced to have any kind of sexual activity by your partner or ex-partner? No 05/22/2022 Social Connection and Isolation Panel [NHANES] A nswer Date Recorded In a typical week, how many times do you talk on the phone with family, friends, or neighbors? Three times a week 05/22/2022 How often do you get togethe r with friends or relatives? Once a week 05/22/2022 How often do you attend chur ch or sikhism services? Never 05/22/2022 Do you belong to any clubs o r organizations such as sikhism groups, unions, fraternal or athletic groups, or school groups? No 05/22/2022 How often do you attend meet ings of the clubs or organizations you belong to? Never 05/22/2022 Are you , , di vorced, , never , or living with a partner? 05/22/2022 AUDIT-C Answer Date Recorded Q1: How often do you have a drink containing alc ohol? Never 05/22/2022 Average Number of Drinks Not on file 022 Frequency of Binge Drinking Not on file 04/26 Overall Financial Resource Strain (CARDIA) Answe r Date Recorded How hard is it for you to pa y for the very basics like food, housing, medical care, and heating? Not very hard 05/22/2022 PHQ-2 Answer Date Recorded PHQ-2 Score 0 01/25/2023 [facility] - Occupational Stress Questionnaire Answer Date Recorded Do you feel stress - tense, restless, nervous, or anxious, or unable to sleep at night because your mind is troubled all the time - these days? Only a little 05/22/2022 Exercise Vital Sign Answer Date Recorde d On average, how many days pe r week do you engage in moderate to strenuous exercise (like a brisk walk)? 0 days 05/22/2022 On average, how many minutes do you engage in exercise at this level? 0 min 05/22/2022 Hunger Vital Sign Answer Date Recorded Within the past 12 months, y ou worried that your food would run out before you got the money to buy more. Never true 05/22/20 22 Within the past 12 months, t he food you bought just didn't last and you didn't have money to get more. Never true 05/22/2022 PRAPARE - Transportation Answer Date Re corded In the past 12 months, has l ack of transportation kept you from medical appointments or from getting medications? No 04/26 In the past 12 months, has l ack of transportation kept you from meetings, work, or from getting things needed for daily living? No 05/22/2022 Housing Stability Vital Sign Answer Lenard e Recorded In the last 12 months, was t here a time when you were not able to pay the mortgage or rent on time? No 05/22/2022 In the last 12 months, how many places have you lived? 1 05/22/2022 In the last 12 months, was t here a time when you did not have a steady place to sleep or slept in a penitentiary (including now)? No 05/22/2022 Depression Answer Date Recor ded PHQ-9 Total Score (max 27) 0 01/25 Nutrition Answer Date Recorded Nutrition: EVOO Fat Source No 05/22 On average, how many serving s of fruits and vegetables do you eat per day (serving size is equal to 1 cup or approximately the size of a tennis ball)? 0-1 05/22/2022 Dental Answer Date Recorded Dental: Regular Dentist No 05/22/20 Employment Answer Date Recorded Employment status Retired 05/22/2022 Education Answer Date Recorded What is the highest level of school you have completed or the highest degree you have received? Some college, no degree 05/22/2022 Sex and Gender Information Value Date Recorded Sex Assigned at Male 04/08/2018 12:55 PM CDT Gender Identity Male 04/08/2018 12:55 PM CDT Sexual Orientation Straight 04/08/2018 12 :55 PM CDT Last Filed Vital Signs Vital Sign Reading Time Taken Comments Blood Pressure 160/85 02/23/2023 3:15 PM CDT Pulse 65 02/23/2023 3:15 PM CDT Temperature 36.7 ??C (98.1 ??F) 02/23/2023 1 1:37 AM CDT Respiratory Rate 18 02/23/2023 2:00 PM CDT Oxygen Saturation 94% 02/23/2023 3:15 PM CDT Inhaled Oxygen Concentration - - Weight 91.5 kg (201 lb 11.5 oz) 023 11:33 AM CDT Height 179.8 cm (5' 10.79) 01/11/2023 1:46 PM C DT Body Mass Index 28.3 01/11/2023 1:46 PM CDT Plan of Treatment Upcoming Encounters Date Type Department Care Team (Late st Contact Info) Description 07/13/2023 1:00 PM HOST Virtual Visit Division of Nephrology and Hypertension in [place], [place] [address] [place] [address] Antelmo Reese M.D. [address] [place] [phone] Health Maintenance Due Date Last Done Comments Office Visit for Blood Press ure Check / Re-check 04/13/2023 01/11/2023 Depression Screening (Annual PHQ-2) 06/25/2023 Fall Risk Screen (Annual) 06/25/2023 DTaP,Tdap,and Td Vaccines (3 - Td or Tdap) 05/08/2033 05/08/2023, 04/11/2012, 03/25/2009, Additional history exists Pneumococcal vaccine (65+ years) Completed 04/12/2015, 03/25/2006, 04/14/2005 Colonoscopy Discontinued 04/11/2018, 03/25, 03/17/2011, Additional history exists Colorectal Cancer Surveillance Discontinued Zoster Vaccines Completed 02/11/2020, 11/23, 03/02/2009 Influenza Vaccine Completed 03/10/2023, , 04/05/2021, Additional history exists COVID-19 Vaccine Completed 04/25/2023, 08/2021, 03/31/2021, Additional history exists CT Colonography Discontinued Cologuard Discontinued Medical Devices Implanted Type Area Dredge Pipe Installer Device Identifier Shelf Expiration Date Model / Serial / Lot Depuy Stem Femoral Corail Kla12 - [id number] Implanted:Qty: 1 on 09/09/2013 Hip Implant Left: Other/Legacy - See Implant Description [employer] Description:Device Manufactu rer - [employer]. Body Location - Left. Device Status Text - HIP [id number]. Lens 6.0x20.5 [id number] - [id number] Implanted:Qty: 1 on 03/25/2010 Ocular Lens Left: Other/Legacy - See Implant Description [employer] Description:Device Manufactu rer - [employer]. Body Location - Left. Device Status Text - [id number]. Lens 6.0x21.0 [id number] - [id number] Implanted:Qty: 1 on 03/31/2011 Ocular Lens Right: Other/Legacy - See Implant Description [employer] Description:Device Manufactu rer - [employer]. Body Location - Right. Device Status Text - [id number]. Advance Directives For more information, please contact: [phone] Documents on File Type Date Recorded Patient Security Representative Expl anation Advance Directives 03/17/2015 12:00 AM [facility] acy document. See document viewer. Advance Directives 06/19/2006 12:00 AM [facility] document. See document viewer. Advance Directives 12/13/2004 12:00 AM Leg acy document. See document viewer. Care Teams Radiological Defense Officer Relationship Specialty Start Date End Date Elsewhere, Pcp PCP - General Internal Medicine 02/23/23
--- OUTSIDE RECORDS SUMMARY | 2023-07-06 08:31 | XMS_ITS | Encounter Summary ---
Author Name Unknown Organization [facility] Address [address] [place] [address] Care Team Providers Care Filtering Machine Tender Helper Name Role Phone Elsewhere, Pcp Primary Care Provider Unavailabl e Reason for Visit * Reason Onset Date Comments Recently hospitalized 06/21/2023 Encounter Details Date Type Department Care Team (Latest Contact Info) Description 06/21/2023 Clinical Communication Division of Nephrology and Hypertension in [place], [place] [address] [place] [address] Antelmo Reese M.D. [address] [place] [phone] Recently hospitalized Social History Tobacco Use Types Packs/Day Years Used Date Smoking Tobacco: Former Cigarettes 1 60 0 11/23/1954 - 11/19/2004 Smokeless Tobacco: Never Alcohol Use [...] often do you attend chur ch or jew services? Never 05/22/2022 Do you belong to any clubs o r organizations such as rastafari groups, unions, fraternal or athletic groups, [...] Answer Date Recorded PHQ-2 Score 0 01/25/2023 [facility] Occup[facility] - Occupational Stress [...] or slept in a retirement (including now)? No 05/22/2022 Depression Answer Date [...] Orientation Straight 04/08/2018 12 :55 PM CDT documented as of this encounter Miscellaneous Notes * Telephone Encounter - Cinthya Hernandez Aurelia - 06/21/2023 11:[address] Reese, Patient's daughter, Cecily Malave called. The patient has a video appointment with you on June 27,but Cecily wanted to make you aware ahead of time that the patient was recently hospitalized for seizures. He was also diagnosed with Parkinson's, and states his short-term memory is not always great. He also had a heart attack since he last saw you. Again, Cecily only wanted to make you aware and you donot need to call her, but if you would like to, you can. She will be at the video visit as well. Thank you. ET PRINTING OPERATOR documented in this encounter Plan of Treatment Upcoming Encounters Date Type Department Care Team (Late st Contact Info) Description 07/13/2023 1:00 PM OFFSET PRINTING OPERATOR Virtual Visit Division of Nephrology and Hypertension in [place], [place] [address] [place] [address] Antelmo Reese M.D. [address] [place] [address] documented as of this encounter Visit Diagnoses Not on filedocumented in this encounter Additional Health Concerns Assessment Noted Time PHQ-9 Depression Total Score: 0 01/26/20 23 2:00 PM CDT documented as of this encounter Care Teams Filtering Machine Tender Helper Relationship Specialty Start Date End Date Elsewhere, Pcp PCP - General Internal Medicine 02/23/23 documented as of this encounter
--- OUTSIDE RECORDS SUMMARY | 2023-07-06 08:31 | XMS_ITS | Encounter Summary ---
Author Name Unknown Organization [facility] Address [address] [place] [address] Care Team Providers Care Hub Borer Name Role Phone Elsewhere, Pcp Primary Care Provider Unavailabl e Reason for Referral * Outpatient (Routine) - Authorized Specialty Diagnoses / Procedures Referred By Ky quiroz Referred To Contact Nephrology and Hypertension Antelmo Reese M.D. [address] [place] [phone] [facility] Referral ID Status Reason Start Date Expiration Date V isits Requested Visits Authorized [id number] Authorized 07/05/2023 07/04/2026 1 1 Scheduling Instructions Phone visit at 1 PM CH HISTORY PROFESSOR Reason for Visit * Outpatient (Routine) - Closed Specialty Diagnoses / Procedures Referred By Ky quiroz Referred To Contact Nephrology and Hypertension Antelmo Reese M.D. 200 [place] [address] [facility] Referral ID Status Reason Start Date Expiration Date Visits Re quested Visits Authorized [id number] Closed 06/27/2023 06/26/2026 1 1 Encounter Details Date Type Department Care Team (Latest Contact Info) Description 07/05/2023 11:15 AM CHURCH HISTORY PROFESSOR Virtual Visit Division of Nephrology and Hypertension in [place], [place] [address] [place] [phone] Antelmo Reese M.D. [address] [place] [phone] Benign Prostatic Hyperplasia Without Obstruction (Primary Dx) Social History Tobacco Use Types Packs/Day Years [...] often do you attend chur ch or holiness services? Never 05/22/2022 Do you belong to any clubs o r organizations such as hindu groups, unions, fraternal or athletic groups, [...] Answer Date Recorded PHQ-2 Score 0 01/25/2023 [facility] Occupat ional Health - Occupational [...] documented as of this encounter Progress Notes * Antelmo Reese M.D. - 07/05/2023 11:15 AM CST PHONE VISIT SUBJECTIVE REASON FOR VISIT Mr. Merrill returns for test results and recommendations. INTERIM HISTORY See my note from June 27. He just received the tamsulosin yesterday or the day before. Overall he is stable. OBJECTIVE LAB RESULTS ASSESSMENT / PLAN IMPRESSION 1. Urinary frequency and nocturia with BPH. PLAN AND RECOMMENDATIONS He will take the tamsulosin 1 a day. I will call him in about 10 days to check on his progress. I reviewed the above with the patient. Antemlo Reese M.D. CH HISTORY PROFESSOR documented in this encounter Plan of Treatment Upcoming Encounters Date Type Department Care Team (Late st Contact Info) Description 07/13/2023 1:00 PM CHURCH HISTORY PROFESSOR Virtual Visit Division of Nephrology and Hypertension in [place], [place] [address] [place] [address] Antelmo Reese M.D. [address] [place] [address] Scheduled Referrals Name Type Priority Associated Diagnoses Order Schedule Nephrology and Hypertension office visit (clinic) Outpatient Referral Routine Expected: 07/13/2023, Expires: 10/03/2024 documented as of this encounter Visit Diagnoses Diagnosis Benign Prostatic Hyperplasia Without Obstruction- Primary documented in this encounter Additional Health Concerns Assessment Noted Time PHQ-9 Depression Total Score: 0 01/26/20 23 2:00 PM CDT documented as of this encounter Care Teams Hub Borer Relationship Specialty Start Date End Date Elsewhere, Pcp PCP - General Internal Medicine 02/23/23 documented as of this encounter
--- OUTSIDE RECORDS SUMMARY | 2023-07-06 08:31 | XMS_ITS | Encounter Summary ---
Author Name Unknown Organization [facility] Address [address] [place] [address] Care Team Providers Care Security Researcher Name Role Phone Elsewhere, Pcp Primary Care Provider Unavailabl e Encounter Details Date Type Department Care Team (Late st Contact Info) Description 04/14/2023 Clinical Communication Division of Nephrology and Hypertension in [place], [place] [address] [place] [address] Antelmo Reese M.D. [address] [place] [address] Social History Tobacco Use Types Packs/Day Years [...] often do you attend chur ch or jain services? Never 05/22/2022 Do you belong to any clubs o r organizations such as presybeterian groups, unions, fraternal or athletic groups, [...] Answer Date Recorded PHQ-2 Score 0 01/25/2023 [facility] of Occupat ional Health - Occupational [...] or slept in a mcc (including now)? No 05/22/2022 Depression Answer Date [...] encounter Miscellaneous Notes * Telephone Encounter - Antelmo Reese M.D. - 04/14/2023 4:11 PM CDT Phone call to patient. He recently had hyponatremia and a seizure. The seizures not recurred. The hyponatremia has improved. He is feeling better overall. I asked him to call me in about a month a report on his progress. I will arrange a follow-up appointment. documented in this encounter Plan of Treatment Upcoming Encounters Date Type Department Care Team (Late st Contact Info) Description 07/13/2023 1:00 PM MAINSPRING FABRICATION SUPERVISOR Virtual Visit Division of Nephrology and Hypertension in [place], [place] [address] [place] [address] Antelmo Reese M.D. [address] [place] [address] documented as of this encounter Visit Diagnoses Not on filedocumented in this encounter Additional Health Concerns Assessment Noted Time PHQ-9 Depression Total Score: 0 01/26/20 2:00 PM CDT documented as of this encounter Care Teams Security Researcher Relationship Specialty Start Date End Date Elsewhere, Pcp PCP - General Internal Medicine 02/23/23 documented as of this encounter
--- OUTSIDE RECORDS SUMMARY | 2023-07-06 08:31 | XMS_ITS | Referral Summary ---
Author Name Unknown Organization [facility] Address [address] [place] [address] Care Team Providers Care Watch Repairer Apprentice Name Role Phone Elsewhere, Pcp Primary Care Provider Unavailabl e Source Comments Patient records contain information from all sites at [facility]. For routine questions regarding patient records, call [phone] during business hours, M-F 8:00 AM - 5:00 PM Central Time. Record requests for emergency care only can be directed to [phone] at any time.[facility] Encounters Date Type Department Care Team Description 07/05/2023 11:15 AM AIR GRINDER Virtual Visit Division of Nephrology and Hypertension in [place], [place] [address] [place] [phone] Antelmo Reese M.D. Benign Prostatic Hyperplasia Without Obstruction (Primary Dx) 06/27/2023 2:45 PM AIR GRINDER Virtual Visit Division of Nephrology and Hypertension in [place], [place] [address] [place] [phone] Antelmo Reese M.D. Benign Prostatic Hyperplasia Without Obstruction 06/21/2023 Clinical Communication Division of Nephrology and Hypertension in [place], [place] [address] [place] [phone] Antelmo Reese M.D. Recently hospitalized 05/18/2023 Clinical Communication Division of Nephrology and Hypertension in [place], [place] [address] [place] [address] Ange Leonard R.N. three month chronic opioid follow up 04/14/2023 Orders Only Division of Nephrology and Hypertension in [place], [place] [address] [place] [address] Antelmo Reese M.D. 04/14/2023 Clinical Communication Division of Nephrology and Hypertension in [place], [place] [address] [place] [address] Antelmo Reese M.D. from Last 3 Months Allergies No known active allergies Medications Medication [...] Date Resolved Date Pain Hip Bilateral 03/12/2019 1 Hypertension Personal History 04/18/2005 01/27/2022 Immunizations Name Administration Dates Next Due HZV (ZOSTAVAX) 03/02/2009 Influenza (IM) Preservative Free 03/15/2009 Influenza Split 03/25/2008,03/25/2007 PCV13 04/12/2015 PPSV23 03/25/2006 Td, (Adult) Unspecified 03/25/2009,06/25/2000, Tdap 04/11/2012 influenza high dose (65 year s or older) (PF) 04/15/2019,04/16/2017,04/12/2016,2014,04/08/2014,04/07/2013,04/11/2012,1 ,04/20/2010 Social History Tobacco Use Types Packs/Day Years [...] often do you attend chur ch or worship services? Never 05/22/2022 Do you belong to any clubs o r organizations such as jewish groups, unions, fraternal or athletic groups, or [...] Answer Date Recorded PHQ-2 Score 0 01/25/2023 [facility] of Occupat ional Health - [...] or slept in a snf (including now)? No 05/22/2022 Depression Answer Date [...] st Contact Info) Description 07/13/2023 1:00 PM AIR GRINDER Virtual Visit Division of Nephrology and Hypertension in [place], [place] [address] [place] [address] Antelmo Reese M.D. 200 [place] [address] Medical Devices Implanted Type Area Roller Operator Device Identifier Shelf Expiration Date Model / Serial / Lot Depuy Stem Femoral Corail Kla12 - Trevizo [id number] Implanted:Qty: 1 on 09/09/2013 Hip Implant Left: Other/Legacy - See Implant Description Springpad [employer] CSID Description:Device Manufactu rer - [employer]. Body Location - Left. Device Status Text - HIP [id number]. Lens 6.0x20.5 [id number] - Trevizo [id number] Implanted:Qty: 1 on 03/25/2010 Ocular Lens Left: Other/Legacy - See Implant Description [employer] Description:Device Manufactu rer - [employer]. Body Location - Left. Device Status Text - [id number]. Lens 6.0x21.0 [id number] - Trevizo [id number] Implanted:Qty: 1 on 03/31/2011 Ocular Lens Right: Other/Legacy - See Implant Description [employer] Description:Device Manufactu rer - [employer]. Body Location - Right. Device Status Text - [id number]. Advance Directives For more information, please contact: [phone] Documents on File Type Date Recorded Patient Drop Hammer Setter Up Expl anation Advance Directives 03/17/2015 12:00 AM Leg acy document. See document viewer. Advance Directives 06/19/2006 12:00 AM Le rey document. See document viewer. Advance Directives 12/13/2004 12:00 AM Leg acy document. See document viewer. Care Teams Watch Repairer Apprentice Relationship Specialty Start Date End Date Elsewhere, Pcp PCP - General Internal Medicine 02/23/23
--- OUTSIDE RECORDS SUMMARY | 2023-07-06 08:31 | XMS_ITS | Encounter Summary ---
Author Name Unknown Organization [facility] Address [address] [place] [address] Care Team Providers Care Rug Dry Room Attendant Name Role Phone Elsewhere, Pcp Primary Care Provider Unavailabl e Encounter Details Date Type Department Care Team (Late st Contact Info) Description 03/16/2023 Orders Only Division of Nephrology and Hypertension in [place], [place] [address] [place] [address] Antelmo Reese M.D. [address] [place] [address] Social History Tobacco Use Types Packs/Day Years [...] often do you attend chur ch or synagogue services? Never 05/22/2022 Do you belong to any clubs o r organizations such as restoration groups, unions, fraternal or athletic groups, [...] Answer Date Recorded PHQ-2 Score 0 01/25/2023 [facility] of Occupat ional Health - Occupational Stress [...] as of this encounter Plan of Treatment Upcoming Encounters Date Type Department Care Team (Late st Contact Info) Description 07/13/2023 1:00 PM CRYSTAL ATTACHER Virtual Visit Division of Nephrology and Hypertension in [place], [place] 200 [place] [phone] Antelmo Reese M.D. [address] [place] [phone] documented as of this encounter Visit Diagnoses Not on filedocumented in this encounter Additional Health Concerns Assessment Noted Time PHQ-9 Depression Total Score: 0 01/26/20 2:00 PM CDT documented as of this encounter Care Teams Rug Dry Room Attendant Relationship Specialty Start Date End Date Elsewhere, Pcp PCP - General Internal Medicine 02/23/23 documented as of this encounter
--- OUTSIDE RECORDS SUMMARY | 2023-07-06 08:31 | XMS_ITS | Encounter Summary ---
Author Name Unknown Organization [facility] Address [address] [place] [address] Care Team Providers Care Lock Tender Name Role Phone Elsewhere, Pcp Primary Care Provider Unavailabl e Reason for Visit * Reason Comments Benign Prostatic Hypertrophy Uroflow * Outpatient (Routine) - Closed Specialty Diagnoses / Procedures Referred By Ky t Referred To Contact Diagnoses Benign Prostatic Hyperplasia Hypertrophy With Obstruction Procedures URO Uroflow Maco Mclean APRN, C.N.P. [address] [place] [phone] [facility] Referral ID Status Reason Start Date Expiration Date Visits Re quested Visits Authorized [id number] Closed 03/02/2022 03/02/2023 1 1 Encounter Details Date Type Department Care Team (Latest Contact Info) Description 03/05/2023 9:45 AM CDT Procedure visit Department of Urology in [place], [place] [address] [place] [phone] Maco Mclean APRN, C.N.P. [address] [place] [phone] Kierra Paris R.N. [address] [place] [phone] Benign Prostatic Hyperplasia Hypertrophy With Obstruction Social History Tobacco Use Types Packs/Day Years [...] 05/22/2022 How often do you attend chur or oriental orthodox services? Never 05/22/2022 Do you belong to [...] Answer Date Recorded PHQ-2 Score 0 01/25/2023 [facility] of Occupat ional Health - Occupational [...] money to buy more. Never true 05/22/20 Within the past 12 months, t he [...] or slept in a jail (including now)? No 05/22/2022 Depression Answer Date [...] as of this encounter Progress Notes * Kierra Paris R.N. - 03/05/2023 9:45 AM CDT CHIEF COMPLAINT Patient here for a complex uroflow via calibrated electronic equipment and a residual urine check by ultrasound. IMPRESSION/REPORT/PLAN Maco Mclean APRN, HAND PRESSER, ordered the patient to have a complex uroflow with residual urine check via ultrasound. Patient had a mild urge to void. Uroflow was completed at this time. Patient voided 213 mL's and had an ultrasound residual of 215 mL's. Patient rates pain at 0 on the 0 to 10 pain scale post procedure. documented in this encounter Procedure Notes * Nestor Sanchez M.D. - 03/05/2023 9:45 AM CDTAssociated Order(s): URO UROFLOW Reason for visit: UROFLOW The patient is here for a complex uroflow via calibrated electronic equipment and residual urine checked by ultrasound. Indications: BPH with lower urinary tract symptoms Peak flow: 13.9 ml/sec Average flow: 6.6 ml/sec Voiding time: 101.7 sec Total voided volume: 213 mls Intermittent flow pattern Residual urine: 215 ml by ultrasound Impression: Abnormal Uroflow. Elevated post void residual with low Qmax. Differential diagnosis includes bladder outlet obstruction vs hypocontractile bladder. Clinical correlation is recommended. documented in this encounter Plan of Treatment Upcoming Encounters Date Type Department Care Team (Late st Contact Info) Description 07/13/2023 1:00 PM SAFE AND VAULT SERVICE MECHANIC Virtual Visit Division of Nephrology and Hypertension in [place], [place] [address] [place] [address] Antelmo Reese M.D. [address] [place] [address] documented as of this encounter Procedures Procedure Name Priority Date/Time Associated Diagnosis Comments URO UROFLOW Routine 03/05/2023 9:45 AM CDT Benign Prostatic Hyperplasia Hypertrophy With Obstruction documented in this encounter Results * URO Uroflow (03/05/2023 9:45 AM CDT) Narrative Nestor Sanchez M.D. - 03/05/2023 9:45 AM CDT Nestor Sanchez M.D. ? 03/05/2023 12:53 PM Reason for visit: UROFLOW The patient is here for a complex uroflow via calibrated electronic equipment and residual urine checked by ultrasound. Indications: ??BPH with lower urinary tract symptoms Peak flow: ??13.9 ml/sec Average flow: ??6.6 ml/sec Voiding time: ??101.7 sec Total voided volume: ??213 mls Intermittent flow pattern Residual urine: ??215 ml by ultrasound Impression: Abnormal Uroflow. Elevated post void residual with low Qmax. ??Differential diagnosis includes bladder outlet obstruction vs hypocontractile bladder. Clinical correlation is recommended. Maco Mclean APRN C.N.P. UROLOGY O RDERAJERRY documented in this encounter Visit Diagnoses Diagnosis Benign Prostatic Hyperplasia Hypertrophy With Obstruction documented in this encounter Additional Health Concerns Assessment Noted Time PHQ-9 Depression Total Score: 0 01/26/20 23 2:00 PM CDT documented as of this encounter Care Teams Lock Tender Relationship Specialty Start Date End Date Elsewhere, Pcp PCP - General Internal Medicine 02/23/23 documented as of this encounter
--- OUTSIDE RECORDS SUMMARY | 2023-07-06 08:31 | XMS_ITS | Encounter Summary ---
Author Name Unknown Organization [facility] Address [address] [place] [address] Care Team Providers Care Advanced Manufacturing Consultant Name Role Phone Elsewhere, Pcp Primary Care Provider Unavailabl e Reason for Referral * Outpatient (Routine) - Authorized Specialty Diagnoses / Procedures Referred By Contac t Referred To Contact Neurology Diagnoses Stroke (HCC) Antelmo Reese M.D. 200 [place] [address] [facility] Referral ID Status Reason Start Date Expiration Date V isits Requested Visits Authorized [id number] Authorized 03/14/2023 03/13/2024 1 1 Encounter Details Date Type Department Care Team (Late st Contact Info) Description 03/14/2023 Orders Only Division of Nephrology and Hypertension in [place], [place] 200 [place] [phone] Antelmo Reese M.D. 200 [place] [phone] Stroke (HCC) (Primary Dx) Social History Tobacco Use Types [...] How often do you attend chur or lutheran services? Never 05/22/2022 Do you belong to any clubs o r organizations such as holiness groups, unions, fraternal or athletic groups, [...] Answer Date Recorded PHQ-2 Score 0 01/25/2023 [facility] of Occupat ional Health - Occupational Stress [...] or slept in a alf (including now)? No 05/22/2022 Depression Answer Date [...] st Contact Info) Description 07/13/2023 1:00 PM HOOP BENDER TANK Virtual Visit Division of Nephrology and Hypertension in [place], [place] [address] [place] [phone] Antelmo Reese M.D. [address] [place] [address] Scheduled Referrals Name Type Priority Associated Diagnoses Order Schedule Neurology - Cerebrovascular consult (clinic) Outpatient Referral Routine Stroke (HCC) Expected: 03/14/2023 (Approximate), Expires: 06/13/2024 documented as of this encounter Visit Diagnoses Diagnosis Stroke (HCC)- Primary documented in this encounter Additional Health Concerns Assessment Noted Time PHQ-9 Depression Total Score: 0 01/26/20 2:00 PM CDT documented as of this encounter Care Teams Advanced Manufacturing Consultant Relationship Specialty Start Date End Date Elsewhere, Pcp PCP - General Internal Medicine 02/23/23 documented as of this encounter
--- OUTSIDE RECORDS SUMMARY | 2023-07-06 08:31 | XMS_ITS | Encounter Summary ---
Author Name Unknown Organization [facility] Address [address] [place] [address] Care Team Providers Care Shear Assembler Name Role Phone Elsewhere, Pcp Primary Care Provider Unavailabl e Reason for Referral * Outpatient (Routine) - Authorized Specialty Diagnoses / Procedures Referred By Contac t Referred To Contact Diagnoses Benign Prostatic Hyperplasia Hypertrophy With Obstruction Incomplete Bladder Emptying Procedures URO Uroflow Maco Mclean APRN, C.N.P. 200 [place] [address] [facility] Referral ID Status Reason Start Date Expiration Date V isits Requested Visits Authorized [id number] Authorized 03/05/2023 03/04/2024 1 1 * Outpatient (Routine) - Authorized Specialty Diagnoses / Procedures Referred By Contac t Referred To Contact Urology Maco Mclean APRN, C.N.P. [address] [place] [phone] [facility] Referral ID Status Reason Start Date Expiration Date V isits Requested Visits Authorized [id number] Authorized 03/05/2023 03/04/2026 1 1 Reason for Visit * Outpatient (Routine) - Closed Specialty Diagnoses / Procedures Referred By Contac t Referred To Contact Urology Maco Mclean APRN, C.N.P. [address] [place] [phone] [facility] Referral ID Status Reason Start Date Expiration Date Visits Re quested Visits Authorized [id number] Closed 03/02/2022 03/01/2025 1 1 Encounter Details Date Type Department Care Team (Late st Contact Info) Description 03/05/2023 11:30 AM CDT Office Visit Department of Urology in [place], [place] [address] [place] [address] Maco Mclean APRN, C.N.P. [address] [place] [phone] Benign Prostatic Hyperplasia Hypertrophy With Obstruction (Primary Dx); Incomplete Bladder Emptying Social History Tobacco Use Types Packs/Day Years [...] week 05/22/2022 How often do you attend [facility] or restoration services? Never 05/22/2022 Do you belong to any clubs o r organizations such as gnosticist groups, unions, fraternal or athletic groups, [...] Answer Date Recorded PHQ-2 Score 0 01/25/2023 [facility] - Occupational Stress Questionnaire Answer Date Recorded [...] as of this encounter Progress Notes * Maco Mclean, TASHA, C.N.P. - 03/05/2023 11:30 AM CDT SUBJECTIVE REASON FOR CONSULT BPH HISTORY OF PRESENT ILLNESS Mr. Merrill is a 82 y.o. who is status post Rezum steam ablation of the prostate 05/11/2021. He received three treatments to his 35 g gland. He had an elevated PVR before surgery. Since intervention, his strength of stream has improved. He does not catheterize. He has a residualelevated PVR. He has not been troubled with bladder stones or bladder infections. PHYSICAL EXAM General: Well-appearing, in no acute apparent distress. LABORATORY Lab Results Component Value Date CREATININE 1.28 03/05/2023 ALKPHOS 123 01/11/2023 AST 20 01/11/2023 ALT 11 01/11/2023 Uroflow: 14, 7, 213, 215 PVR ASSESSMENT / PLAN #1 BPH status post Rezum Plan His PVR remains elevated however it is improved from his last evaluation. He is not bothered by anyred flag symptoms. He remains on tamsulosin and finasteride. He is not interested in catheterization. He is not particularly interested in another surgery. Will plan on seeing him back in about a year to ensure his PVR is relatively stable and as long as he is not having any red flag symptoms, I think he is fine to observe while staying on the medication. We discussed that if he has episodes of retention requiring catheterization or has bladder infections or bladder stones that he needs to let us know then he needs to be seen sooner. He is comfortable with this approach. I will plan on seeinghim back in about a year. RECOMMENDATIONS 1. Return to clinic one year for BPH recheck documented in this encounter Plan of Treatment Upcoming Encounters Date Type Department Care Team (Late st Contact Info) Description 07/13/2023 1:00 PM VIDEO GAME TECHNICIAN Virtual Visit Division of Nephrology and Hypertension in [place], [place] [address] [place] [address] Antelmo Reese M.D. [address] [place] [phone] Scheduled Orders Name Type Priority Associated Diagnoses Orde r Schedule URO Uroflow Procedure Routine Benign Prostatic Hyperplasia Hypertrophy With Obstruction Incomplete Bladder Emptying Expected: 03/05/2024 (Approximate), Expires: 06/04/2024 Creatinine with Estimated GFR Lab Routine Benign Prostatic Hyperplasia Hypertrophy With Obstruction Incomplete Bladder Emptying Expected: 03/05/2024 (Approximate), Expires: 06/04/2024 Scheduled Referrals Name Type Priority Associated Diagnoses Orde r Schedule Urology office visit (clinic) Outpatient Referral Routine Expected: 03/05/2024 (Approximate), Expires: 06/04/2024 documented as of this encounter Visit Diagnoses Diagnosis Benign Prostatic Hyperplasia Hypertrophy With Obstruction- Primary Incomplete Bladder Emptying documented in this encounter Additional Health Concerns Assessment Noted Time PHQ-9 Depression Total Score: 0 01/26/20 23 2:00 PM CDT documented as of this encounter Care Teams Shear Assembler Relationship Specialty Start Date End Date Elsewhere, Pcp PCP - General Internal Medicine 02/23/23 documented as of this encounter
--- OUTSIDE RECORDS SUMMARY | 2023-07-06 08:31 | XMS_ITS | Encounter Summary ---
Author Name Unknown Organization [facility] Address [address] [place] [address] Care Team Providers Care Intellectual Property Paralegal Name Role Phone Elsewhere, Pcp Primary Care Provider Unavailabl e Reason for Referral * Outpatient (Routine) - Closed Specialty Diagnoses / Procedures Referred By Ky quiroz Referred To Contact Nephrology and Hypertension Antelmo Reese M.D. [address] [place] [phone] [facility] Referral ID Status Reason Start Date Expiration Date Visits Re quested Visits Authorized [id number] Closed 06/27/2023 06/26/2026 1 1 Scheduling Instructions Jul 04, , or ER JOINER Reason for Visit * Outpatient (Routine) - Closed Specialty Diagnoses / Procedures Referred By Ky quiroz Referred To Contact Nephrology and Hypertension Antelmo Reese M.D. 200 [place] [address] [facility] Referral ID Status Reason Start Date Expiration Date Visits Re quested Visits Authorized [id number] Closed 04/14/2023 04/13/2026 1 1 Encounter Details Date Type Department Care Team (Latest Contact Info) Description 06/27/2023 2:45 PM ZIPPER JOINER Virtual Visit Division of Nephrology and Hypertension in [place], [place] [address] [place] [phone] Antelmo Reese M.D. [address] [place] [phone] Benign Prostatic Hyperplasia Without Obstruction Social History Tobacco Use Types Packs/Day [...] often do you attend chur ch or nondenominational services? Never 05/22/2022 Do you belong to any clubs o r organizations such as congregation groups, unions, fraternal or athletic groups, [...] Answer Date Recorded PHQ-2 Score 0 01/25/2023 [facility] Occupat ional [facility] - Occupational Stress Questionnaire Answer Date [...] slept in a group home (including now)? No 05/22/2022 Depression Answer Date [...] Date Recorded Dental: Regular Dentist No 05/22/20 22 Employment Answer Date Recorded Employment status Retired [...] documented as of this encounter H&P Notes * Antelmo Reese M.D. - 06/27/2023 2:45 PM CST PHONE VISIT REFERRAL SOURCE Self REASON FOR VISIT Seizures. Fatigue. Urinary frequency. HISTORY OF PRESENT ILLNESS It was a pleasure to see Mr. Merrill , who is a very pleasant 82 y.o. This year he has had several medical conditions. He had hyponatremia and a seizure. This was while taking tramadol for chronic bilateral buttock pain. He is now taking an anti seizure medication. About a week ago he fell in his restroom. He is tired. He naps frequently. He does not sleep well during the night. That is in part due to urinary frequency and nocturia. He has a history of BPH. He previously took tamsulosin. He had a noninvasive procedure on the prostate in 2020. PAST MEDICAL HISTORY 1. 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 2. Coronary heart disease. 3. Chronic bilateral buttock pain. 4. Chronic insomnia. Zolpidem works well. 5. Hyperlipidemia 6. Benign prostatic hyperplasia. 7. Left total hip arthroplasty. 8. Hypertension. 9. Peripheral arterial disease. 10. Trochanteric bursitis. 11. Seizures. REVIEW OF SYSTEMS VITAL SIGNS There were no vitals taken for this visit. PHYSICAL EXAMINATION Physical Exam LAB RESULTS Unavailable. IMPRESSION 1. Seizure disorder. The initial contributors were probably hyponatremia and tramadol. 2. Urinary frequency and nocturia with BPH. 3. Fatigue. 4. Memory impairment. He has a history of stroke. PLAN AND RECOMMENDATIONS For the lower urinary tract symptoms, resumed tamsulosin 0.4 mg 1 a day. I sent through prescription. I discussed with him that lightheadedness can occur while taking that medication. I hope the medication allows him to sleep better, which will improve his fatigue. I will plan on visiting with him in about a week. I reviewed the above with the patient. Antelmo Reese M.D. ER JOINER documented in this encounter Plan of Treatment Upcoming Encounters Date Type Department Care Team (Late st Contact Info) Description 07/13/2023 1:00 PM ZIPPER JOINER Virtual Visit Division of Nephrology and Hypertension in [place], [place] [address] [place] [address] Antelmo Reese M.D. [address] [place] [address] Scheduled Referrals Name Type Priority Associated Diagnoses Order Schedule Nephrology and Hypertension office visit (clinic) Outpatient Referral Routine Expected: 07/04/2023 (Approximate), Expires: 09/25/2024 documented as of this encounter Visit Diagnoses Diagnosis Benign Prostatic Hyperplasia Without Obstruction documented in this encounter Additional Health Concerns Assessment Noted Time PHQ-9 Depression Total Score: 0 01/26/20 2:00 PM CDT documented as of this encounter Care Teams Intellectual Property Paralegal Relationship Specialty Start Date End Date Elsewhere, Pcp PCP - General Internal Medicine 02/23/23 documented as of this encounter
--- OUTSIDE RECORDS SUMMARY | 2023-07-06 08:31 | XMS_ITS | Encounter Summary ---
Author Name Unknown Organization [facility] Address [address] [place] [address] Care Team Providers Care Felt Finishing Supervisor Name Role Phone Elsewhere, Pcp Primary Care Provider Unavailabl e Reason for Referral * Outpatient (Routine) - Closed Specialty Diagnoses / Procedures Referred By Contac t Referred To Contact Nephrology and Hypertension Antelmo Reese M.D. [address] [place] [phone] [facility] Referral ID Status Reason Start Date Expiration Date Visits Re quested Visits Authorized [id number] Closed 04/14/2023 04/13/2026 1 1 Scheduling Instructions No tests. Encounter Details Date Type Department Care Team (Late st Contact Info) Description 04/14/2023 Orders Only Division of Nephrology and Hypertension in [place], [place] [address] [place] [phone] Antelmo Reese M.D. [address] [place] [phone] Social History Tobacco Use Types Packs/Day Years [...] How often do you attend chur or church services? Never 05/22/2022 Do you belong to any clubs o r organizations such as episcopalian groups, unions, fraternal or athletic groups, [...] Answer Date Recorded PHQ-2 Score 0 01/25/2023 [facility] of Occupat ional Health - Occupational Stress [...] or slept in a long-term (including now)? No 05/22/2022 Depression Answer Date [...] st Contact Info) Description 07/13/2023 1:00 PM MATERIAL DAMAGE APPRAISER Virtual Visit Division of Nephrology and Hypertension in [place], [place] [address] [place] [address] Antelmo Reese M.D. [address] [place] [address] Scheduled Referrals Name Type Priority Associated Diagnoses Order Schedule Nephrology and Hypertension office visit (clinic) Outpatient Referral Routine Expected: 05/30/2023 (Approximate), Expires: 07/15/2024 documented as of this encounter Visit Diagnoses Not on filedocumented in this encounter Additional Health Concerns Assessment Noted Time PHQ-9 Depression Total Score: 0 01/26/20 2:00 PM CDT documented as of this encounter Care Teams Felt Finishing Supervisor Relationship Specialty Start Date End Date Elsewhere, Pcp PCP - General Internal Medicine 02/23/23 documented as of this encounter
--- OUTSIDE RECORDS SUMMARY | 2023-07-06 08:31 | XMS_ITS | Encounter Summary ---
Author Name Unknown Organization [facility] Address [address] [place] [address] Care Team Providers Care Bench Manager Name Role Phone Elsewhere, Pcp Primary Care Provider Unavailabl e Encounter Details Date Type Department Care Team (Late st Contact Info) Description 03/07/2023 Clinical Communication Division of Nephrology and Hypertension in [place], [place] [address] [place] [address] Antelmo Reese M.D. [address] [place] [address] Social History Tobacco Use Types Packs/Day Years [...] any clubs o r organizations such as sabianist groups, unions, fraternal or athletic groups, or [...] Answer Date Recorded PHQ-2 Score 0 01/25/2023 [facility] of Occupat ional Health - Occupational Stress [...] slept in a senior living (including now)? No 05/22/2022 Depression Answer Date [...] Progress Notes * Antelmo Reese M.D. - 03/07/2023 11:28 AM CDT Phone conversation with the patient. He was seen in the urology clinic. He has BPH, and underwent Rezum therapy in 2020. He is asymptomatic. Postvoid residual was about 215 mL. I advised him to void on a schedule. He will contact us if he develops symptoms. documented in this encounter Plan of Treatment Upcoming Encounters Date Type Department Care Team (Late st Contact Info) Description 07/13/2023 1:00 PM UTILIZATION ENGINEER Virtual Visit Division of Nephrology and Hypertension in [place], [place] [address] [place] [address] Antelmo Reese M.D. [address] [place] [address] documented as of this encounter Visit Diagnoses Not on filedocumented in this encounter Additional Health Concerns Assessment Noted Time PHQ-9 Depression Total Score: 0 01/26/20 2:00 PM CDT documented as of this encounter Care Teams Bench Manager Relationship Specialty Start Date End Date Elsewhere, Pcp PCP - General Internal Medicine 02/23/23 documented as of this encounter
--- OUTSIDE RECORDS SUMMARY | 2023-07-06 08:31 | XMS_ITS | Encounter Summary ---
Author Name Unknown Organization [facility] Address [address] [place] [address] Care Team Providers Care Plasma Center Technician Name Role Phone Elsewhere, Pcp Primary Care Provider Unavailabl e Reason for Visit * Reason Onset Date Comments Catheter Prescription 03/05/2023 Encounter Details Date Type Department Care Team (Latest Contact Info) Description 03/05/2023 Clinical Communication Department of Urology in [place], [place] [address] [place] [phone] Maco Mclean, POURER BULL LADLE, C.N.P. [address] [place] [phone] Catheter Prescription Social History Tobacco Use Types Packs/Day Years [...] often do you attend chur ch or faith services? Never 05/22/2022 Do you belong to any clubs o r organizations such as oriental orthodox groups, unions, fraternal or athletic [...] 01/25/2023 [facility] of Occupat ional Health - Occupational [...] slept in a nursing home (including now)? No 05/22/2022 Depression Answer [...] encounter Miscellaneous Notes * Telephone Encounter - Zuri Farnsworth R.N. - 03/05/2023 12:40 PM CDT Hoang's note says patient was not interested in catheterizing. Patient will need education before prescribing. documented in this encounter Plan of Treatment Upcoming Encounters Date Type Department Care Team (Late st Contact Info) Description 07/13/2023 1:00 PM SOLUTIONS MANAGER Virtual Visit Division of Nephrology and Hypertension in [place], [place] [address] [place] [address] Antelmo Reese M.D. [address] [place] [address] documented as of this encounter Visit Diagnoses Not on filedocumented in this encounter Additional Health Concerns Assessment Noted Time PHQ-9 Depression Total Score: 0 01/26/20 2:00 PM CDT documented as of this encounter Care Teams Plasma Center Technician Relationship Specialty Start Date End Date Elsewhere, Pcp PCP - General Internal Medicine 02/23/23 documented as of this encounter
--- OUTSIDE RECORDS SUMMARY | 2023-07-06 08:31 | XMS_ITS | Encounter Summary ---
Author Name Unknown Organization [facility] Address [address] [place] [address] Care Team Providers Care Public Relations Player Name Role Phone Elsewhere, Pcp Primary Care Provider Unavailabl e Reason for Visit * Reason Onset Date Comments three month chronic opioid follow up 05/18/2023 Encounter Details Date Type Department Care Team (Latest Contact Info) Description 05/18/2023 Clinical Communication Division of Nephrology and Hypertension in [place], [place] [address] [place] [address] Ange Leonard, RChristianNChristian [address] [place] [address] three month chronic opioid follow up Social History Tobacco Use Types Packs/Day Years [...] often do you attend chur ch or anglican services? Never 05/22/2022 Do you belong to any clubs o r organizations such as adventist groups, unions, fraternal or athletic groups, [...] Answer Date Recorded PHQ-2 Score 0 01/25/2023 [facility] - Occupational Stress Questionnaire Answer [...] slept in a skilled nursing (including now)? No 05/22/2022 Depression Answer Date [...] encounter Miscellaneous Notes * Telephone Encounter - Ange Leonard R.N. - 05/18/2023 2:13 PM CST I called [facility] to follow up on an unread portal message about his Tramadol prescription He said he hasn't taken any Tramadol for about three weeks now. He is getting by with Tylenol at this time. How many tablets do you take per day? 0 Have you experienced any side effects from this medication? If yes, please describe the side effect(s) and any treatment(s) for the side effect(s). N/a Where is your pain located? Right hip/buttock How would you rate your current pain (0 = no pain; 10 = pain as bad as you can imagine)? 2 How many tablets do you have remaining? 0 I offered a new prescription but he said he doesn't need one at this time. He will call if he needsa new one. What number best describes your pain on average in the past week (0 = no pain; 10 = pain as bad as you can imagine)? 2 What number best describes how, during the past week, pain has interfered with your enjoyment of life (0 = does not interfere; 10 = completely interferes)? 0 What number best describes how, during the past week, pain has interfered with your general activity (0 = does not interfere; 10 = completely interferes)? 0 ESSIONAL DEVELOPMENT INSTRUCTOR documented in this encounter Plan of Treatment Upcoming Encounters Date Type Department Care Team (Late st Contact Info) Description 07/13/2023 1:00 PM PROFESSIONAL DEVELOPMENT INSTRUCTOR Virtual Visit Division of Nephrology and Hypertension in [place], [place] [address] [place] [address] Antelmo Reese M.D. [address] [place] [address] documented as of this encounter Visit Diagnoses Not on filedocumented in this encounter Additional Health Concerns Assessment Noted Time PHQ-9 Depression Total Score: 0 01/26/20 2:00 PM CDT documented as of this encounter Care Teams Public Relations Player Relationship Specialty Start Date End Date Elsewhere, Pcp PCP - General Internal Medicine 02/23/23 documented as of this encounter
--- OUTSIDE RECORDS SUMMARY | 2023-07-06 08:31 | XMS_ITS ---
Author Name Unknown Organization [facility] Address [address] [place] [address] Care Team Providers Care Construction Assistant Name Role Phone Unavailable Unavailable Unavailable Surgery Details Not on file Complications Check Surgery Details section. Procedure Estimated Blood Loss Check Surgery Details section. Procedure Findings Check Surgery Details section. Procedure Specimens Taken Check Surgery Details section.
--- OUTSIDE RECORDS SUMMARY | 2023-07-06 08:32 | XMS_ITS | Encounter Summary ---
Author Name Unknown Organization [facility] Address [address] [place] [address] Care Team Providers Care Machine Engineer Name Role Phone Unavailable Primary Care Provider Unavailabl e Encounter Details Date Type Department Care Team (Latest Contact Info) Description 01/11/2023 12:45 PM CDT - 01/11/2023 11:59 PM CDT Hospital Encounter Department of Laboratory Medicine and Pathology, [facility] [place], [place] [address] [place] [address] Thais Briceno M.D. [address] [place] [phone] Angina Pectoris Unspecified (HCC) Discharge Disposition: Home or Self Care Social History Tobacco Use Types Packs/Day Years [...] often do you attend chur ch or yarsanism services? Never 05/22/2022 Do you belong to any clubs o r organizations such as yarsanism groups, unions, fraternal or athletic groups, [...] PHQ-2 Answer Date Recorded PHQ-2 Score 0 01/27/2022 [facility] - Occupational [...] or slept in a intermediate (including now)? No 05/22/2022 Depression Answer Date Recor ded PHQ-9 Total Score (max 27) 0 01/27 Nutrition Answer Date Recorded Nutrition: EVOO Fat [...] Start Date End Date acetaminophen (TYLENOL) 500 mg tablet Take 1-2 tablets by mouth 3 (three) times a day as needed. pain 0 09/08/2013 amLODIPine (NORVASC) 2.5 mg tabletIndications:Hype rtension Personal History TAKE ONE TABLET BY MOUTH ONE TIME DAILY 90 tablet 3 02/08/2022 aspirin 325 mg tablet Take 1 tablet by mouth daily. 0 09/23/2014 carvediloL (COREG) 12.5 mg tabletIndications:Hype rtension Personal History Take 1 tablet (12.5 mg total) by mouth 2 (two) times a day with meals. 200 tablet 3 04/29/2022 lanolin/mineral oil/petrolatum (ARTIFICIAL TEARS OPHT) Administer 1 drop into affected eye(s) as needed. As needed (both eyes). 0 04/06/2015 loratadine (CLARITIN) 10 mg tablet Take 10 mg by mouth daily. 0 losartan-hydroCHLOROth iazide (HYZAAR) 100-25 mg per tabletIndications:Hype rtension Personal History Take 1 tablet by mouth every morning. 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 max 3 tablets/15 minutes. 25 tablet 6 06/20/2022 POLYETHYLENE GLYCOL 3350 ORAL Take 1 g by mouth as needed. MiraLAX powder 0 11/17/2016 zolpidem (AMBIEN) 10 mg tabletIndications:Inso mnia TAKE ONE TABLET BY MOUTH ONE TIME DAILY AT BEDTIME 90 tablet 1 10/12/2022 finasteride (PROSCAR) 5 mg tabletIndications:Camilo gn Prostatic Hyperplasia Without Obstruction Take 1 tablet (5 mg total) by mouth daily. 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 270 tablet 0 10/24/2022 02/13/2023 documented as of this encounter Plan of Treatment Upcoming Encounters Date Type Department Care Team (Late st Contact Info) Description 07/13/2023 1:00 PM ELECTROPHONIC ENGINEER Virtual Visit Division of Nephrology and Hypertension in [place], [place] [address] [place] [address] Antelmo Reese M.D. [address] [place] [address] documented as of this encounter Procedures Procedure Name Priority Date/Time Associated Diagnosis Comments CBC WITH DIFFERENTIAL, B Routine 01/11/2023 12:55 PM CDT Angina Pectoris Unspecified (HCC) COMPREHENSIVE METABOLIC PANEL, S/P Routine 01/11/2023 12:54 PM CDT Angina Pectoris Unspecified (HCC) documented in this encounter Results * (ABNORMAL) CBC with Differential, Blood (01/11/2023 12:55 PM CDT) Hemoglobin 13.0(L) 13.2 - 16.6 g/dL 01/11/2023 1:43 PM CDT DTL Hematocrit 37.5(L) 38.3 - 48.6 % 01/11/2023 1:43 PM CDT DTL Erythrocytes 4.25(L) 4.35 - 5.65 x10(12)/L 01/11/2023 1:43 PM CDT DTL MCV 88.2 78.2 - 97.9 fL 01/11/2023 1:43 PM CDT DTL RBC Distrib Width 12.4 11.8 - 14.5 % 01/11/2023 1:43 PM CDT DTL Platelet Count 190 135 - 317 x10(9)/L 01/11/2023 1:43 PM CDT DTL Leukocytes 8.8 3.4 - 9.6 x10(9)/L 01/11/2023 1:43 PM CDT DTL Neutrophils 6.52(H) 1.56 - 6.45 x10(9)/L 01/11/2023 1:43 PM CDT DTL Lymphocytes 0.89(L) 0.95 - 3.07 x10(9)/L 01/11/2023 1:43 PM CDT DTL Monocytes 0.90(H) 0.26 - 0.81 x10(9)/L 01/11/2023 1:43 PM CDT DTL Eosinophils 0.46 0.03 - 0.48 x10(9)/L 01/11/2023 1:43 PM CDT DTL Basophils 0.04 0.01 - 0.08 x10(9)/L 01/11/2023 1:43 PM CDT DTL Blood (Blood, Venous) 01/11/2023 12:55 PM CDT 01/11/2023 1:33 PM CDT Thais Briceno M.D. LAB BLOOD ADD-ON [place] [address] [place] [address], [facility] [place] [address] [place] [address] * (ABNORMAL) Comprehensive Metabolic Panel (01/11/2023 12:54 PM CDT) [facility] Potassium, S 4.5 3.6 - 5.2 mmol/L 01/11/2023 2:01 PM CDT DTL Sodium, S 129(L) 135 - 145 mmol/L 01/11/2023 2:01 PM CDT DTL Chloride, S 91(L) 98 - 107 mmol/L 01/11/2023 2:01 PM CDT DTL Bicarbonate, S 28 22 - 29 mmol/L 01/11/2023 2:01 PM CDT DTL Anion Gap 10 7 - 15 01/11/2023 2:01 PM CDT DTL BUN (Blood Urea Nitrogen), S 21 8 - 24 mg/dL 01/11/2023 2:01 PM CDT DTL Creatinine 1.33 0.74 - 1.35 mg/dL 01/11/2023 2:01 PM CDT DTL Estimated GFR (eGFR) 53(L) >=60 mL/min/BS A 01/11/2023 2:01 PM CDT DTL Comment: Estimated GFR calculated using the 2020 CKD_EPI creatinine equation. Calcium, Total, S 9.5 8.8 - 10.2 mg/dL 01/11/2023 2:01 PM CDT DTL Glucose, S 95 70 - 140 mg/dL 01/11/2023 2:01 PM CDT DTL Protein, Total, S 6.5 6.3 - 7.9 g/dL 01/11/2023 2:01 PM CDT DTL Albumin, S 4.4 3.5 - 5.0 g/dL 01/11/2023 2:01 PM CDT DTL Aspartate Aminotransferase (AST), S 20 8 - 48 U/L 01/11/2023 2:01 PM CDT DTL Alkaline Phosphatase, S 123 40 - 129 U/L 01/11/2023 2:01 PM CDT DTL Alanine Aminotransferase (ALT), S 11 7 - 55 U/L 01/11/2023 2:01 PM CDT DTL Bilirubin, Total, S 0.5 <=1.2 mg/dL 01/11/2023 2:01 PM CDT DTL Blood (Blood, Venous) 01/11/2023 12:54 PM CDT 01/11/2023 1:41 PM CDT Thais Briceno M.D. LAB BLOOD ADD-ON [facility] 200 [place] [address], [facility] DTL [facility] 200 [place] [address] documented in this encounter Visit Diagnoses Diagnosis Angina Pectoris Unspecified (HCC) documented in this encounter Additional Health Concerns Assessment Noted Time PHQ-9 Depression Total Score: 0 01/28/20 22 10:00 AM CDT documented as of this encounter
--- OUTSIDE RECORDS SUMMARY | 2023-07-06 08:32 | XMS_ITS | Encounter Summary ---
Author Name Unknown Organization [facility] Address [address] [place] [address] Care Team Providers Care Applications Systems Engineer Name Role Phone Elsewhere, Pcp Primary Care Provider Unavailabl e Reason for Visit * Reason Onset Date Comments Fatigue 02/23/2023 Encounter Details Date Type Department Care Team (Late st Contact Info) Description 02/23/2023 Clinical Communication Division of Nephrology and Hypertension in [place], [place] [address] [place] [address] Ange Leonard RChristianN. [address] [place] [address] Fatigue Social History Tobacco Use Types Packs/Day Years [...] any clubs o r organizations such as denominational groups, unions, fraternal or athletic groups, [...] Answer Date Recorded PHQ-2 Score 0 01/25/2023 [facility] - Occupational Stress Questionnaire Answer Date Recorded [...] or slept in a detention (including now)? No 05/22/2022 Depression Answer Date [...] Telephone Encounter - Ange Leonard R.N. - 02/23/2023 10:06 AM CDT SUBJECTIVE CHIEF COMPLAINT / REASON FOR CALL Fatigue ASSESSMENT Familia called me and said his couldn't wake him up this morning. He thinks he should go to the emergency department but wanted to talk to us first. Familia is a patient of Dr. Childress. He said the last two days he has had trouble sleeping. He typically takes Ambien 10 mg at bedtime. The past two nights he has taken an additional Ambien because hewas still awake at three in the morning. He said his was unable to wake him up this morning. He is alert and oriented this morning but speaking slowly. He denies chest pain, headache, or shortness of breath. His blood pressure this morning was 176/91, 166/92, and 179/62. He states he did not take his blood pressure medication yet this morning. I asked him to take his blood pressure medications and to check his blood pressure at least an hour after taking his medications. I asked to speak with his Roseann. She said Familia has not been himself the past couple days. Hetypically has trouble sleeping. She was not aware he had taken an additional Ambien. She said Familia snores and she can usually touch his arm and he will stop snoring. She said she had trouble waking him up. He woke up about 9:00 this morning. She said they had eaten a meal out and both of them felt nauseated but did not vomit two days ago. She also said Familia has started using his walker again due tounsteadiness. He sometimes uses her for support and also uses the wall. She is concerned because heis not acting like himself. 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 She called her daughter and son-in-law because she said she wanted someone else there with them. PLAN I agreed with taking Familia to the emergency department to be evaluated. Their daughter and [id number] take them. Disposition/Recommendation: recommended to report to the nearest emergency department. Information/Education: patient/caller able to teach back. Caller agreeable to plan of care: yes. The following references were used: nursing clinical judgement. documented in this encounter Plan of Treatment Upcoming Encounters Date Type Department Care Team (Late st Contact Info) Description 07/13/2023 1:00 PM KILN STACKER Virtual Visit Division of Nephrology and Hypertension in [place], [place] [address] [place] [address] Antelmo Reese M.D. [address] [place] [address] documented as of this encounter Visit Diagnoses Not on filedocumented in this encounter Additional Health Concerns Assessment Noted Time PHQ-9 Depression Total Score: 0 01/26/20 23 2:00 PM CDT documented as of this encounter Care Teams Applications Systems Engineer Relationship Specialty Start Date End Date Elsewhere, Pcp PCP - General Internal Medicine 02/23/23 documented as of this encounter
--- OUTSIDE RECORDS SUMMARY | 2023-07-06 08:32 | XMS_ITS | Encounter Summary ---
Author Name Unknown Organization [facility] Address [address] [place] [address] Care Team Providers Care Cnc Machine Setter Name Role Phone Elsewhere, Pcp Primary Care Provider Unavailabl e Reason for Visit * Reason Comments Med Refill Encounter Details Date Type Department Care Team (Late st Contact Info) Description 02/08/2023 Refill Division of Nephrology and Hypertension in [place], [place] [address] [place] [phone] Antelmo Reese M.D. [address] [place] [address] Med Refill Social History Tobacco Use Types Packs/Day Years [...] often do you attend chur ch or restorationist services? Never 05/22/2022 Do you belong to any clubs o r organizations such as episcopal groups, unions, fraternal or athletic groups, [...] PHQ-2 Score 0 01/25/2023 [facility] Occupational Stress Questionnaire Answer Date [...] or slept in a mcfp (including now)? No 05/22/2022 Depression Answer Date [...] st Contact Info) Description 07/13/2023 1:00 PM VETERINARY PATHOLOGIST Virtual Visit Division of Nephrology and Hypertension in [place], [place] 200 [place] [address] Antelmo Reese M.D. [address] [place] [address] documented as of this encounter Visit Diagnoses Diagnosis Pain Hip Bilateral Other Chronic Pain documented in this encounter Additional Health Concerns Infection Onset Date Last Indicated Resolved Time COVID19 Pending 02/23/2023 02/23/2023 02/23/2023 1 2:59 PM CDT Assessment Noted Time PHQ-9 Depression Total Score: 0 01/26/20 2:00 PM CDT documented as of this encounter Care Teams Cnc Machine Setter Relationship Specialty Start Date End Date Elsewhere, Pcp PCP - General Internal Medicine 02/23/23 documented as of this encounter
--- OUTSIDE RECORDS SUMMARY | 2023-07-06 08:32 | XMS_ITS | Encounter Summary ---
Author Name Unknown Organization [facility] Address [address] [place] [address] Care Team Providers Care Occupational Therapist Name Role Phone Unavailable Primary Care Provider Unavailabl e Encounter Details Date Type Department Care Team (Latest Contact Info) Description 01/25/2023 9:27 AM CDT - 01/25/2023 11:59 PM CDT Hospital Encounter Department of Laboratory Medicine and Pathology, [facility] in [place], [place] [address] [place] [phone] Angely Ryan, TASHA, C.N.P., D.N.P. [address] [place] [phone] Hyponatremia Discharge Disposition: Home or Self Care Social [...] often do you attend chur ch or protestant services? Never 05/22/2022 Do you belong to any clubs o r organizations such as voodoo groups, unions, fraternal or athletic groups, or [...] Answer Date Recorded PHQ-2 Score 0 01/25/2023 [facility] - Occupational Stress Questionnaire Answer [...] or slept in a assisted (including now)? No 05/22/2022 Depression Answer Date [...] mouth as needed. 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 90 tablet 2 01/23/2023 sertraline (ZOLOFT) 50 mg tabletIndications:Hype rtension Essential Primary TAKE ONE TABLET BY MOUTH ONE TIME DAILY 90 tablet 2 01/23/2023 zolpidem (AMBIEN) 10 mg tabletIndications:Inso mnia TAKE ONE TABLET BY MOUTH ONE TIME DAILY AT BEDTIME 90 tablet 1 10/12/2022 finasteride (PROSCAR) 5 mg tabletIndications:Camilo gn Prostatic Hyperplasia Without Obstruction Take 1 tablet (5 mg total) by mouth daily. 100 tablet 3 04/29/2022 04/29/2023 tamsulosin (FLOMAX) 0.4 mg 24 hr capsuleIndications:Rusty ign Prostatic Hyperplasia Without Obstruction TAKE ONE CAPSULE BY MOUTH ONE TIME DAILY 90 capsule 3 02/08/2022 06/27/2023 traMADoL (ULTRAM) 50 mg tabletIndications:Blender Snuff katt Pain/Nonacute Pain Take 1 tablet (50 mg total) by mouth 3 (three) times a day Indications: Chronic Pain/Nonacute Pain. 270 tablet 0 10/24/2022 02/13/2023 documented as of this encounter Plan of Treatment Upcoming Encounters Date Type Department Care Team (Late st Contact Info) Description 07/13/2023 1:00 PM DIVISION SERVICE MANAGER Virtual Visit Division of Nephrology and Hypertension in [place], [place] [address] [place] [address] Antelmo Reese M.D. [address] [place] [address] documented as of this encounter Procedures Procedure Name Priority Date/Time Associated Diagnosis Comments BASIC METABOLIC PANEL, S/P Routine 01/25/2023 9:49 AM CDT Hyponatremia documented in this encounter Results * (ABNORMAL) Basic Metabolic Panel (01/25/2023 9:49 AM CDT) Potassium, S 4.4 3.6 - 5.2 mmol/L 01/25/2023 10:54 AM CDT DTL Sodium, S 131(L) 135 - 145 mmol/L 01/25/2023 10:54 AM CDT DTL Chloride, S 95(L) 98 - 107 mmol/L 01/25/2023 10:54 AM CDT DTL Bicarbonate, S 28 22 - 29 mmol/L 01/25/2023 10:54 AM CDT DTL Anion Gap 8 7 - 15 01/25/2023 10:54 AM CDT DTL BUN (Blood Urea Nitrogen), S 27(H) 8 - 24 mg/dL 01/25/2023 10:54 AM CDT DTL Creatinine 1.42(H) 0.74 - 1.35 mg/dL 01/25/2023 10:54 AM CDT DTL Estimated GFR (eGFR) 49(L) >=60 mL/min/BSA 01/25/2023 10:54 AM CDT DTL Comment: Estimated GFR calculated using the 2020 CKD_EPI creatinine equation. Calcium, Total, S 9.9 8.8 - 10.2 mg/dL 01/25/2023 11:21 AM CDT DTL Glucose, S 100 70 - 140 mg/dL 01/25/2023 10:54 AM CDT DTL Blood (Blood, Venous) 01/25/2023 9:49 AM CDT 01/25/2023 10:32 AM CDT Angely Ryan APRN, C.N.P., D.N.P. [place] B BLOOD ADD-ON [facility] 200 [place] [address], [facility] DTL [facility] 200 [place] [address] documented in this encounter Visit Diagnoses Diagnosis Hyponatremia documented in this encounter Additional Health Concerns Assessment Noted Time PHQ-9 Depression Total Score: 0 01/26/20 23 2:00 PM CDT documented as of this encounter
--- OUTSIDE RECORDS SUMMARY | 2023-07-06 08:32 | XMS_ITS | Encounter Summary ---
Author Name Unknown Organization [facility] Address [address] [place] [address] Care Team Providers Care Canine Enforcement Officer Name Role Phone Unavailable Primary Care Provider Unavailabl e Reason for Referral * Outpatient (Routine) - Authorized Specialty Diagnoses / Procedures Referred By Contac t Referred To Contact Nephrology and Hypertension Antelmo Reese M.D. 200 [place] [address] [facility] Referral ID Status Reason Start Date Expiration Date V isits Requested Visits Authorized [id number] Authorized 01/25/2023 01/24/2026 1 1 * Outpatient (Routine) - Authorized Specialty Diagnoses / Procedures Referred By Contac t Referred To Contact Nephrology and Hypertension Antelmo Reese M.D. 200 [place] [address] [facility] Referral ID Status Reason Start Date Expiration Date V isits Requested Visits Authorized [id number] Authorized 01/25/2023 01/24/2026 1 1 Reason for Visit * Reason Comments Opioid * Outpatient (Routine) - Closed Specialty Diagnoses / Procedures Referred By Contac t Referred To Contact Nephrology and Hypertension Diagnoses Pain Hip Bilateral Other Chronic Pain Antelmo Reese M.D. [address] [place] [phone] [facility] Referral ID Status Reason Start Date Expiration Date Visits Re quested Visits Authorized [id number] Closed 01/27/2022 01/27/2023 1 1 Encounter Details Date Type Department Care Team (Late st Contact Info) Description 01/25/2023 1:00 PM CDT Nurse Only Division of Nephrology and Hypertension in [place], [place] [address] [place] [phone] Antelmo Reese M.D. 200 [place] [phone] Emir Marcelino R.N. 200 [place] [phone] Opioid Social History Tobacco Use Types Packs/Day Years [...] any clubs o r organizations such as latter day groups, unions, fraternal or athletic [...] Date Recorded PHQ-2 Score 0 01/25/2023 [facility] - Occupational Stress Questionnaire Answer Date [...] or slept in a longterm (including now)? No 05/22/2022 Depression Answer Date [...] as of this encounter Progress Notes * Emir Marcelino, RChristianN. - 01/25/2023 1:00 PM CDT Provider: Dr. Reese Reason for Visit: Chronic opioid therapy Patient with a history of: Chronic Bilateral Buttock Pain Date of last visit:01/27/2022 Requested medication and dosage: tramadol 50 mg three times a day Date of last renewal: 10/24/22 Number of tablets remaining: approx half 135 Average number of tablets per day: 3 Side effects: none Pain location and description: Buttock and Right Hip Current pain ratin Controlled substance agreement on file: yes . Opioid Assessment Scores: PEG Total Score: 1.33 (11/28/2022 11:00 AM) ORT Total Score (max 26): 3 (01/25/2023 2:00 PM) PHQ-9 Total Score (max 27): 0 (01/25/2023 2:00 PM) RUTH-7 Total Score (max 21): 0 (01/25/2023 2:00 PM) Last Urine Toxicology Results: Lab Results Component Value Date BARBSCRNUR Negative 01/27/2022 BUPENRPHNMSU Not Detected 01/27/2022 METHADONEUR Not Detected 01/27/2022 OXYSCRNU Not Detected 01/27/2022 Pain Management Panel Latest Ref Rng & Units 01/27/2022 Pain Management Panel Barbiturates Cutoff: 200 ng/mL Negative Codeine Cutoff: 25 ng/mL Not Detected Morphine Cutoff: 25 ng/mL Not Detected PLAN Opioid Action Plan to be reviewed and updated by prescriber. The above information will be shared with the prescriber. See Education History for completed patient education. documented in this encounter Plan of Treatment Upcoming Encounters Date Type Department Care Team (Late st Contact Info) Description 07/13/2023 1:00 PM PST SUPERVISOR Virtual Visit Division of Nephrology and Hypertension in [place], [place] [address] [place] [address] Antelmo Reese M.D. [address] [place] [address] Scheduled Orders Name Type Priority Associated Diagnoses Orde r Schedule Targeted Opioid Screen, Urine Lab Routine Other Chronic Pain Expected: 01/26/2024 (Approximate), Expires: 04/27/2024 Scheduled Referrals Name Type Priority Associated Diagnoses Order Schedule Nephrology nurse visit (clinic) Outpatient Referral Routine Expected: 01/26/2024 (Approximate), Expires: 04/27/2024 Nephrology and Hypertension office visit (clinic) Outpatient Referral Routine Expected: 01/26/2024 (Approximate), Expires: 04/27/2024 documented as of this encounter Visit Diagnoses Diagnosis Pain Hip Bilateral Other Chronic Pain documented in this encounter Additional Health Concerns Assessment Noted Time PHQ-9 Depression Total Score: 0 01/26/20 23 2:00 PM CDT documented as of this encounter
--- OUTSIDE RECORDS SUMMARY | 2023-07-06 08:32 | XMS_ITS | Encounter Summary ---
Author Name Unknown Organization [facility] Address [address] [place] [id number] Care Team Providers Care Passenger Flagman Name Role Phone Elsewhere, Pcp Primary Care Provider Unavailabl e Encounter Details Date Type Department Care Team (Latest Contact Info) Description 03/05/2023 9:00 AM CDT - 03/05/2023 11:59 PM CDT Hospital Encounter Department of Laboratory Medicine and Pathology, [facility] in [place], [place] [address] [place] [address] Maco Mclean, LEAD FIRE PROTECTION ENGINEER, C.N.P. [address] [place] [phone] Benign Prostatic Hyperplasia Hypertrophy With Obstruction Discharge Disposition: Home or Self Care Social [...] often do you attend chur ch or restorationism services? Never 05/22/2022 Do you belong to any clubs o r organizations such as zoroastrianism groups, unions, fraternal or athletic groups, [...] Answer Date Recorded PHQ-2 Score 0 01/25/2023 [facility] - Occupational Stress [...] the money to buy more. Never true 11/28/20 22 Within the past 12 months, t [...] ONE TIME DAILY 90 tablet 2 01/23/2023 traMADoL (ULTRAM) 50 mg tabletIndications:Tool Crib Attendant katt Pain/Nonacute Pain Take 1 tablet (50 mg total) by mouth 3 (three) times a day Indications: Chronic Pain/Nonacute Pain. 270 tablet 0 02/13/2023 zolpidem (AMBIEN) 10 mg tabletIndications:Inso mnia TAKE [...] TIME DAILY 90 capsule 3 02/08/2022 06/27/2023 documented as of this encounter Plan of Treatment Upcoming Encounters Date Type Department Care Team (Late st Contact Info) Description 07/13/2023 1:00 PM ENGRAVER SIGNATURE Virtual Visit Division of Nephrology and Hypertension in [place], [place] [address] [place] [address] Antelmo Reese M.D. [address] [place] [address] documented as of this encounter Procedures Procedure Name Priority Date/Time Associated Diagnosis Comments CREATININE WITH EGFR, S/P Routine 03/05/2023 9:13 AM CDT Benign Prostatic Hyperplasia Hypertrophy With Obstruction documented in this encounter Results * (ABNORMAL) Creatinine with Estimated GFR (03/05/2023 9:13 AM CDT) Creatinine 1.28 0.74 - 1.35 mg/dL 03/05/2023 10:16 AM CDT DTL Estimated GFR (eGFR) 56(L) >=60 mL/min/BSA 03/05/2023 10:16 AM CDT DTL Comment: Estimated GFR calculated using the 2020 CKD_EPI creatinine equation. Blood (Blood, Venous) 03/05/2023 9:13 AM CDT 03/05/2023 9:53 AM CDT Maco Mclean APRN, C.N.P. LAB BLOOD ADD-ON [facility] [address] [place] [address], [facility] DTL [facility] [address] [place] [address] documented in this encounter Visit Diagnoses Diagnosis Benign Prostatic Hyperplasia Hypertrophy With Obstruction documented in this encounter Additional Health Concerns Assessment Noted Time PHQ-9 Depression Total Score: 0 01/26/20 23 2:00 PM CDT documented as of this encounter Care Teams Passenger Flagman Relationship Specialty Start Date End Date Elsewhere, Pcp PCP - General Internal Medicine 02/23/23 documented as of this encounter
--- OUTSIDE RECORDS SUMMARY | 2023-07-06 08:32 | XMS_ITS | Encounter Summary ---
Author Name Unknown Organization [facility] Address [address] [place] [id number] Care Team Providers Care Manager Automotive Name Role Phone Unavailable Primary Care Provider Unavailabl e Encounter Details Date Type Department Care Team (Latest Contact Info) Description 01/25/2023 9:27 AM CDT - 01/25/2023 11:59 PM CDT Hospital Encounter Department of Laboratory Medicine and Pathology, [facility] in [place], [place] [address] [place] [address] Antelmo Reese M.D. [address] [place] [phone] Pain Hip Bilateral; Other Chronic Pain Discharge Disposition: Home or Self Care Social [...] often do you attend chur ch or anabaptist services? Never 05/22/2022 Do you belong to [...] Answer Date Recorded PHQ-2 Score 0 01/25/2023 [facility] - Occupational [...] or slept in a residential (including now)? No 05/22/2022 Depression Answer Date [...] 3 02/08/2022 06/27/2023 traMADoL (ULTRAM) 50 mg tabletIndications:Hospital Secretary katt Pain/Nonacute Pain Take 1 tablet (50 mg total) by mouth 3 (three) times a day Indications: Chronic Pain/Nonacute Pain. 270 tablet 0 10/24/2022 02/13/2023 documented as of this encounter Plan of Treatment Upcoming Encounters Date Type Department Care Team (Late st Contact Info) Description 07/13/2023 1:00 PM PATIENT PORTAL REPRESENTATIVE Virtual Visit Division of Nephrology and Hypertension in [place], [place] [address] [place] [address] Antelmo Reese M.D. [address] [place] [phone] documented as of this encounter Procedures Procedure Name Priority Date/Time Associated Diagnosis Comments CONTROLLED SUBSTANCE MONITORING, U Routine 01/25/2023 10:03 AM CDT Pain Hip Bilateral Other Chronic Pain documented in this encounter Results * (ABNORMAL) Controlled Substance Monitoring Panel, Urine (01/25/2023 10:03 AM CDT) List patient's current medications Not provided 01/25/2023 10:03 AM CDT [facility] Comment: ----ADDITIONAL INFORMATION---- Accuracy and completeness of declared medications on reports solely dependent on information submitted by client. Creatinine, Random, U 44.8 mg/dL 08/2022 3:28 PM CDT [facility] Specific [place]ford 1.011 01/26/20 3:28 PM CDT [facility] pH 7.1 01/25/2023 3:28 PM CDT [facility] Oxidants Negative Cutoff: 200 mg/L 01/25/2023 3:28 PM CDT [facility] Comment Normal 01/25/2023 3:28 PM CDT [facility] Barbiturates Negative Cutoff: 200 ng/mL 01/25/2023 3:28 PM CDT [facility] Cocaine Negative Cutoff: 150 ng/mL 01/25/2023 3:28 PM CDT [facility] Comment: This cocaine immunoassay targets benzoylecgonine the primary metabolite of cocaine. Tetrahydrocannabinol Negative Cutoff: 50 ng/mL 01/25/2023 3:28 PM CDT [facility] Comment: This immunoassay targets delta-9 tetrahydrocannabinol carboxylic acid (THC-COOH), a metabolite of delta-9 tetrahydrocannabinol the main psychoactive ingredient of marijuana. ----ADDITIONAL INFORMATION---- This report is intended for use in clinical monitoring or management of patients. ??It is not intended for use in employment-related testing. Codeine Not Detected Cutoff: 25 ng/mL 01/26/2023 5:09 AM CDT [facility] Comment:Tylenol 3 Ieokafg-3-xhvg-glucuron ai Not Detected Cutoff: 100 ng/mL 01/26/2023 5:09 AM CDT [facility] Comment:Metabolite of codein e Morphine Not Detected Cutoff: 25 ng/mL 01/26/2023 5:09 AM CDT [facility] Comment: Patricia De La Cruz, MS Contin; Also a minor metabolite (10%) of codeine and can be seen in low concentrations (<2,000 ng/mL) with poppy seed ingestion. Jwhsblju-7-wjod-glucuro nide Not Detected Cutoff: 100 ng/mL 01/26/2023 5:09 AM CDT [facility] Comment:Metabolite of morphi ne 6-monoacetylmorphine Not Detected Cutoff: 25 ng/mL 01/26/2023 5:09 AM CDT [facility] Comment:Metabolite of heroin Hydrocodone Not Detected Cutoff: 25 ng/mL 01/26/2023 5:09 AM CDT [facility] Comment: Lortab, Prospect, Vicodin; Also a very minor metabolite of codeine and impurity (<1%) of oxycodone. Norhydrocodone Not Detected Cutoff: 25 ng/mL 01/26/2023 5:09 AM CDT [facility] Comment:Metabolite of hydroc odone Dihydrocodeine Not Detected Cutoff: 25 ng/mL 01/26/2023 5:09 AM CDT [facility] Comment:Metabolite of hydroc odone Hydromorphone Not Detected Cutoff: 25 ng/mL 01/26/2023 5:09 AM CDT [facility] Comment: Dilaudid, Exalgo; Also a metabolite of hydrocodone and a minor (<5%) metabolite of morphine. Ggwtmiuqmzokg-5-opsp-gl ucuronide Not Detected Cutoff: 100 ng/mL 01/26/2023 5:09 AM CDT [facility] Comment:Metabolite of hydrom orphone Oxycodone Not Detected Cutoff: 25 ng/mL 01/26/2023 5:09 AM CDT [facility] Comment:Endocet, Percocet, O xycontin Noroxycodone Not Detected Cutoff: 25 ng/mL 01/26/2023 5:09 AM CDT SDS Comment:Metabolite of oxycod one Oxymorphone Not Detected Cutoff: 25 ng/mL 01/26/2023 5:09 AM CDT SDS Comment:Numorphan, Opana; Al so a metabolite of oxycodone. Fkovmgzgcob-4-acon-gluc uronide Not Detected Cutoff: 100 ng/mL 01/26/2023 5:09 AM CDT SDS Comment:Metabolite of oxymor phone and/or naloxone (nornaloxone) Noroxymorphone Not Detected Cutoff: 25 ng/mL 01/26/2023 5:09 AM CDT SDS Comment:Metabolite of oxymor phone and/or naloxone (nornaloxone) Fentanyl Not Detected Cutoff: 2 ng/mL 01/26/2023 5:09 AM T [facility] Comment:Actiq, Duragesic, Fe ntora Norfentanyl Not Detected Cutoff: 2 ng/mL 01/26/2023 5:09 AM CDT [facility] Comment:Metabolite of fentan yl Meperidine Not Detected Cutoff: 25 ng/mL 01/26/2023 5:09 AM CDT SDS Comment:Demerol Normeperidine Not Detected Cutoff: 25 ng/mL 01/26/2023 5:09 AM CDT SDS Comment:Metabolite of meperi dine Naloxone Not Detected Cutoff: 25 ng/mL 01/26/2023 5:09 AM T [facility] Comment:Narcan Osjsjump-3-dnnn-glucuro nide Not Detected Cutoff: 100 ng/mL 01/26/2023 5:09 AM CDT SDS Comment:Metabolite of naloxo ne Methadone Not Detected Cutoff: 25 ng/mL 01/26/2023 5:09 AM CDT SDS Comment:Dolophine EDDP Not Detected Cutoff: 25 ng/mL 01/26/2023 5:09 AM CDT SDS Comment:Metabolite of methad one Propoxyphene Not Detected Cutoff: 25 ng/mL 01/26/2023 5:09 AM CDT SDS Comment:Darvon, Darvocet Norpropoxyphene Not Detected Cutoff: 25 ng/mL 01/26/2023 5:09 AM CDT [facility] Comment:Metabolite of propox yphene Tramadol Present(A) Cutoff: 25 ng/mL 01/26/2023 5:09 AM CDT [facility] Comment:Tradol, Ultram, Ultr acet O-desmethyltramadol Present(A) Cutoff: 25 ng/mL 01/26/2023 5:09 AM CDT [facility] Comment:Metabolite of tramad ol Tapentadol Not Detected Cutoff: 25 ng/mL 01/26/2023 5:09 AM CDT [facility] Comment:Nucynta N-desmethyltapentadol Not Detected Cutoff: 50 ng/mL 01/26/2023 5:09 AM CDT [facility] Comment:Metabolite of tapent adol Opgmamndub-dmpv-cpufjou nide Not Detected Cutoff: 100 ng/mL 01/26/2023 5:09 AM CDT [facility] Comment:Metabolite of tapent adol Buprenorphine Not Detected Cutoff: 5 ng/mL 01/26/2023 5:09 AM CDT [facility] Comment:Buprenex, Suboxone Norbuprenorphine Not Detected Cutoff: 5 ng/mL 01/26/2023 5:09 AM CDT [facility] Comment:Metabolite of bupren orphine Norbuprenorphine glucuronide Not Detected Cutoff: 20 ng/mL 01/26/2023 5:09 AM CDT [facility] Comment:Metabolite of bupren orphine Opioid Interpretation Test detected the presence of tramadol and its metabolite (O-desmethylt ramadol). Suspect use of tramadol within the past three days. 01/26/2023 5:09 AM CDT [facility] Comment: ----ADDITIONAL INFORMATION---- This test was developed and its performance characteristics determined by [facility] in a manner consistent with CLIA requirements. This test has not been cleared or approved by the U.S. Food and Drug Administration. Alprazolam Not Detected Cutoff: 10 ng/mL 01/26/2023 12:09 PM CDT [facility] Comment:Xanax Alpha-Hydroxyalprazolam Not Detected Cutoff: 10 ng/mL 01/26/2023 12:09 PM CDT [facility] Comment:Metabolite of Alpraz olam Alpha-Hydroxyalprazolam Glucuronide Not Detected Cutoff: 50 ng/mL 01/26/2023 12:09 PM CDT [facility] Comment:Metabolite of Alpraz olam Chlordiazepoxide Not Detected Cutoff: 10 ng/mL 01/26/2023 12:09 PM CDT [facility] Comment:Librium Clobazam Not Detected Cutoff: 10 ng/mL 01/26/2023 12:09 PM CDT [facility] Comment:Danial, Onfi N-Desmethylclobazam Not Detected Cutoff: 200 ng/mL 01/26/2023 12:09 PM CDT [facility] Comment:Metabolite of Clobaz am Clonazepam Not Detected Cutoff: 10 ng/mL 01/26/2023 12:09 PM CDT [facility] Comment:Klonopin, Rivotril 7-aminoclonazepam Not Detected Cutoff: 10 ng/mL 01/26/2023 12:09 PM CDT SDS Comment:Metabolite of Clonaz epam Diazepam Not Detected Cutoff: 10 ng/mL 01/26/2023 12:09 PM CDT [facility] Comment:Valium Nordiazepam Not Detected Cutoff: 10 ng/mL 01/26/2023 12:09 PM CDT SDS Comment:Metabolite of Chlord iazepoxide, Diazepam, or Prazepam. Flunitrazepam Not Detected Cutoff: 10 ng/mL 01/26/2023 12:09 PM CDT [facility] Comment:Rohypnol 7-aminoflunitrazepam Not Detected Cutoff: 10 ng/mL 01/26/2023 12:09 PM CDT [facility] Comment:Metabolite of Flunit razepam Flurazepam Not Detected Cutoff: 10 ng/mL 01/26/2023 12:09 PM CDT SDS Comment:Dalmane 2-Hydroxy Ethyl Flurazepam Not Detected Cutoff: 10 ng/mL 01/26/2023 12:09 PM CDT [facility] Comment:Metabolite of Fluraz epam Lorazepam Not Detected Cutoff: 10 ng/mL 01/26/2023 12:09 PM CDT [facility] Comment:Ativan Lorazepam Glucuronide Not Detected Cutoff: 50 ng/mL 01/26/2023 12:09 PM CDT [facility] Comment:Metabolite of Loraze kris Midazolam Not Detected Cutoff: 10 ng/mL 01/26/2023 12:09 PM CDT [facility] Comment:Versed Alpha-Hydroxy Midazolam Not Detected Cutoff: 10 ng/mL 01/26/2023 12:09 PM CDT [facility] Comment:Metabolite of Midazo milton Oxazepam Not Detected Cutoff: 10 ng/mL 01/26/2023 12:09 PM CDT [facility] Comment:Serax; Also a metabo lite of Chlordiazepoxide, Diazepam, or Temazepam. Oxazepam Glucuronide Not Detected Cutoff: 50 ng/mL 01/26/2023 12:09 PM CDT [facility] Comment:Metabolite of Oxazep am Prazepam Not Detected Cutoff: 10 ng/mL 01/26/2023 12:09 PM CDT [facility] Comment:Centrax Temazepam Not Detected Cutoff: 10 ng/mL 01/26/2023 12:09 PM CDT [facility] Comment:Restoril; Also a met abolite of Diazepam. Temazepam Glucuronide Not Detected Cutoff: 50 ng/mL 01/26/2023 12:09 PM CDT [facility] Comment:Metabolite of Temaze kris Triazolam Not Detected Cutoff: 10 ng/mL 01/26/2023 12:09 PM CDT [facility] Comment:Halcion Alpha-Hydroxy Triazolam Not Detected Cutoff: 10 ng/mL 01/26/2023 12:09 PM CDT [facility] Comment:Metabolite of Triazo milton Zolpidem Present(A) Cutoff: 10 ng/mL 01/26/2023 12:09 PM CDT [facility] Comment:Ambien Zolpidem Kmmoyh-0-Ffcyzcrkfa acid Present(A) Cutoff: 10 ng/mL 01/26/2023 12:09 PM CDT [facility] Comment:Metabolite of Zolpid em Benzodiazepine Interpretation Test detected the presence of zolpidem and its metabolite (zolpidem fmylpl-5-umnn oxylic acid). Suspect use of zolpidem within the past four days. 01/26/2023 12:09 PM CDT [facility] Comment: ----ADDITIONAL INFORMATION---- This test was developed and its performance characteristics determined by [facility] in a manner consistent with CLIA requirements. This test has not been cleared or approved by the U.S. Food and Drug Administration. Methamphetamine Not Detected Cutoff: 100 ng/mL 01/26/2023 11:04 AM CDT [facility] Comment:Desoxyn Amphetamine Not Detected Cutoff: 100 ng/mL 01/26/2023 11:04 AM CDT [facility] Comment: Dyanavel XR, Adzenys ER, Adderall, Vyvanse; Also a metabolite of methamphetamine 3,4-methylenedioxymetha mphetamine (MDMA) Not Detected Cutoff: 100 ng/mL 01/26/2023 11:04 AM CDT [facility] 3,8-kfflhpxmvrfbgq-B-et hylamphetamine (MDEA) Not Detected Cutoff: 100 ng/mL 01/26/2023 11:04 AM CDT [facility] 3,4-methylenedioxyamphe tamine (MDA) Not Detected Cutoff: 100 ng/mL 01/26/2023 11:04 AM CDT SDS Comment:Also a metabolite of MDMA and/or MDEA Ephedrine Not Detected Cutoff: 100 ng/mL 01/26/2023 11:04 AM CDT SDS Pseudoephedrine Not Detected Cutoff: 100 ng/mL 01/26/2023 11:04 AM T [facility] Comment:Sudafed Phentermine Not Detected Cutoff: 100 ng/mL 01/26/2023 11:04 AM T [facility] Comment:Adipex-P, Lomaira, Q symia Phencyclidine (PCP) Not Detected Cutoff: 20 ng/mL 01/26/2023 11:04 AM CDT SDS Methylphenidate Not Detected Cutoff: 20 ng/mL 01/26/2023 11:04 AM CDT [facility] Comment:Ritalin, Concerta Ritalinic acid Not Detected Cutoff: 100 ng/mL 01/26/2023 11:04 AM T [facility] Comment:Metabolite of methyl phenidate Stimulant Interpretation No stimulants were detected. The absence of expected drug(s) and/or drug metabolite(s) may indicate non-complianc e, altered pharmacokinet ics, inappropriate timing of specimen collection relative to drug administratio n, diluted/adult erated urine, or limitations of testing. 01/26/2023 11:04 AM T [facility] Comment: ----ADDITIONAL INFORMATION---- This test was developed and its performance characteristics determined by [facility] in a manner consistent with CLIA requirements. This test has not been cleared or approved by the U.S. Food and Drug Administration. Urine (Urine, Clean Catch) 01/25/2023 10:03 AM CDT 01/25/2023 10:03 AM CDT Antelmo Reese M.D. LAB URINE ORDERABL ES [facility] [address] [place] [address] [facility] [address] [place] [address] [facility] [address] [place] [address] [place] [address] documented in this encounter Visit Diagnoses Diagnosis Pain Hip Bilateral Other Chronic Pain documented in this encounter Additional Health Concerns Assessment Noted Time PHQ-9 Depression Total Score: 0 01/26/20 23 2:00 PM CDT documented as of this encounter
--- OUTSIDE RECORDS SUMMARY | 2023-07-06 08:32 | XMS_ITS | Encounter Summary ---
Author Name Unknown Organization [facility] Address [address] [place] [id number] Care Team Providers Care Financial Processing Clerk Name Role Phone Elsewhere, Pcp Primary Care Provider Unavailabl e Reason for Visit * Reason Comments Altered Mental Status Encounter Details Date Type Department Care Team ([facility] st Contact Info) Description 02/23/2023 11:28 AM CDT - 02/23/2023 3:31 PM CDT Emergency [facility] Emergency Department [address] [place] [phone] Robin Barrera M.D. [address] [place] [phone] Avelino Willis Jr., M.D. [address] [place] [phone] Hypersomnia Drug Caused (HCC) (Primary Dx); Insomnia; Reaction Stress Discharge Disposition: Home or Self Care Social [...] often do you attend chur ch or caodaism services? Never 05/22/2022 Do you belong to any clubs o r organizations such as orthodoxy groups, unions, fraternal or athletic groups, [...] on file 04/26 Overall Financial Resource Strain ([facility]) Answe r Date Recorded How hard is it for you to pa y for the very basics like food, housing, medical care, and heating? Not very hard 05/22/2022 PHQ-2 Answer Date Recorded PHQ-2 Score 0 01/25/2023 [facility]ational Stress Questionnaire [...] 11.5 oz) 023 11:33 AM CDT Height - - Body Mass Index 28.3 01/11/2023 1:46 PM CDT documented in this encounter Discharge Instructions * Discharge Instructions* Andrea Dominguez - 02/23/2023 1:08 PM CDT Dear Garfield, You were seen in the Emergency Department here due to difficulty awakening after taking an extra dose of Ambien in the morning. We recommend to avoid taking naps during the daytime and to participatein activities that keep your mind stimulated such as playing cards, reading a book, or something else that you enjoy. Please follow-up with your primary care provider within the next week to help manage your sleep regimen and for any possible medication changes they may want to make. Please return to the Emergency Department if your symptoms worsen or continue even after not taking the extra dose of Ambien. * Attachments The following attachments cannot be sent through Care Everywhere. * Insomnia (Moroccan) * How to Get the Healthy Sleep You Need (Moroccan) documented in this encounter Medications at Time [...] tablet 2 01/23/2023 traMADoL (ULTRAM) 50 mg tabletIndications:Pit Tanner katt Pain/Nonacute Pain Take 1 tablet (50 [...] 02/08/2022 06/27/2023 documented as of this encounter ED Notes * Shailesh Momin M.D. - 02/23/2023 3:12 PM CDT This patient who presented to the emergency department with AMS was signed out to me by my colleague Dr. Barrera. Instructions: Monitor patient 2hr trop and disposition accordingly. I evaluated the patient at the beginning of my shift and found him to be alert and oriented to time, place, and person. Vital signs were re-assessed at this time and patient remains in stable condition. Vital Signs: BP 152/78 Pulse 77 Temp 36.7 ??C (Oral) Resp 18 Wt 91.5 kg SpO2 93% BMI 28.30 kg/m?? Abnormal Labs Reviewed CBC WITH DIFFERENTIAL, B - Abnormal; Notable for the following components: Result Value Hemoglobin 12.7 (*) Hematocrit 36.8 (*) Erythrocytes 4.11 (*) Lymphocytes 0.91 (*) Monocytes 1.04 (*) Eosinophils 0.52 (*) All other components within normal limits BASIC METABOLIC PANEL, S/P - Abnormal; Notable for the following components: Sodium, P 129 (*) Chloride, P 93 (*) Estimated GFR (eGFR) 57 (*) All other components within normal limits TROPONIN T, BASELINE, 5TH GEN, P - Abnormal; Notable for the following components: Troponin T, Baseline, 5th gen 19 (*) All other components within normal limits TROPONIN T, 2H/6H, 5TH GEN, P - Abnormal; Notable for the following components: Troponin T, 2 hr, 5th gen 18 (*) All other components within normal limits Narrative: Specimen Information: Specimen ID: [id number] Specimen Type: Blood Specimen Collection Start Date: 02/23/2023 2:41 PM Specimen Received Date: 02/23/2023 2:47 PM Specimen ID: [id number] Specimen Type: Blood No orders to display Shailesh Momin MD Emergency Medicine PGY 1 [id number] CLINICAL IMPRESSION ED Course as of 02/23/23 1514 SunFeb 23, 2023 1511 Troponin T, 2h/6h, 5th Gen(!): Troponin T, 2 hr, 5th gen 18(!) 2H Delta -1 2H Delta Interp Not Changing Troponin T, 6 hr, 5th gen CANCELED 6H Delta CANCELED 6H Delta % CANCELED ACS less likely 1514 The patient was discharged in stable condition. Appropriate follow-up and return precautions were provided. Final Diagnoses: as of 02/23/23 1514 Hypersomnia Drug Caused (HCC) Shailesh Momin M.D. Resident 02/23/23 1514 * Robin Barrera M.D. - 02/23/2023 1:04 PM CDT I saw the patient with the medical student. I was present for or re-performed the History of Present Illness. I personally performed a Physical Exam and Medical Decision Making. I reviewed medical student documentation and agree or amended. I have reviewed and agree with the resident's note addendum. 82-year-old presenting with family concerned about difficulty arousing him today after taking an extra dose of Ambien yesterday. 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 This has been causing increasing episodes of insomnia so he took an extra dose of Ambien to try to sleep last night. This morning his had a hard time awakening him prompting them to bring him to the emergency department. He has had no recentfalls, fevers, unilateral weakness, headache, chest pain, palpitations, dyspnea, orthopnea, cough, h ematuria, dysuria, vomiting, diarrhea, or abdominal pain. Upon ED arrival he feels markedly improved and is at baseline mental status per his family. He denies any alcohol use nor any recent depression or suicidal ideation. He is no history of prior delirium, dementia, or severe depression. Past medical history significant for atrial fibrillation, coronary artery disease, prior stroke, and hypertension. On exam blood pressure 152/86 with a pulse of 64 saturating 97% on room air and afebrile 36.7?? C. He is awake and responsive, oriented x3 without focal motor sensory deficit. No clinical intoxication. No pronator drift but resting tremor of his left arm noted which is chronic per family. No carotid bruit. No thyromegaly. No oropharyngeal erythema or exudate. Uvula is midline. No murmur, rub, or gallop. No wheezing, rhonchi, rales, or asymmetry. Abdomen is soft nontender without organomegaly. Bowel sounds are normal. No lower extremity edema. No rash. No palpable cord or calf tenderness. 2+ radial and dorsal pedal pulses symmetrically. Assessment and Plan 1. Transient hypersomnolence after extra dose of sedative hypnotic. 2. 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 3. Chronic hyponatremia. 4. History of coronary artery disease.. DIFFERENTIAL DIAGNOSES Differential diagnosis of insomnia includes poor sleep hygiene versus stress related sleep disorderversus COVID or influenza infection versus less likely hyperthyroidism or hyperactive delirium. Differential diagnosis of hypersomnolence today includes sedative hypnotic induced sleepiness versus occult physiologic stressors such as acute renal failure or acute coronary syndrome.. PROBLEMS ADDRESSED THIS VISIT EKG and serial troponin to assess for acute coronary syndrome. BMP to assess for acute renal insufficiency with uremia. COVID and influenza testing to exclude respiratory viral syndrome. I reviewed the following external records: prior outpatient labs and office records. ED Course as of 02/24/23 1626 SunFeb 23, 2023 1229 Compared with EKG of January 11, 2023 increased unifocal PVC appreciated, T- wave flattening in leads 1 and aVL old, Q-wave in lead 3 is old, and QTC decreased from 450 to 448. No STEMI or acute ischemic changes appreciated. Final Diagnoses: as of 02/24/231625 Hypersomnia Drug Caused (HCC) Insomnia Reaction Stress The following tests were considered but ultimately not performed: Considered urinalysis if urinary symptoms described or manifest. Considered CT head focal neuro deficit, headache, or reported blunt head trauma reported.. Escalation of care, including admission/observation, considered: Considered admission if waxing andwaning mental status to suggest acute delirium.. My ECG interpretation is documented in ED Course. Robin Barrera M.D. 02/24/23 1627 Robin Barrera M.D. 02/26/23 1342 * Robin Barrera M.D. - 02/23/2023 12:18 PM CDT SUBJECTIVE CHIEF COMPLAINT/REASON FOR VISIT Altered Mental Status HISTORY OF PRESENT ILLNESS Pt is a 82-year-old male with a PMHx of myocardial infarction and TIA who presents to the ED after his had difficulty awakening him this morning. He has been taking Ambien for the past 10 years due to difficulty falling asleep. The past two days he has had even more difficulty falling asleep. Two days ago he took an extra Ambien in the morning, was able to fall asleep, and woke up a couple hours later. This morning he took an Ambien at 0430 and fell asleep. His tried waking him at 0900 and was unable to do so. He woke up at 1000, and they contacted his physician's nurse for further guidance. His was unaware that he had been taking an extra Ambien and was disturbed upon finding out. He denies any alcohol use. He endorses feeling tired today. The past couple days he has felt that his balance is not 100% and he occasionally felt dizzy at times which he describes as lightheadedness. He and his have been experiencing psychosocial stressors involving his bank and beingvictim of possible fraudulent activity which has been on his mind lately. He denies any headache, visual changes, chest pain, shortness of breath, abdominal pain, nausea, vomiting, diarrhea, or urinary symptoms. History provided by: Patient, significant other and relative high school counselor needed/used: no REVIEW OF SYSTEMS Constitutional: Negative for chills and fever. HENT: Negative for hearing loss. Eyes: Negative for visual disturbance. Respiratory: Positive for wheezing. Negative for cough, chest tightness and shortness of breath. Cardiovascular: Negative for chest pain. Gastrointestinal: Positive for constipation. Negative for abdominal pain, diarrhea, nausea and vomiting. Genitourinary: Negative for dysuria, frequency and hematuria. Neurological: Positive for dizziness, light-headedness and loss of balance (now feels he has to usea walker). Negative for syncope and headaches. Psychiatric/Behavioral: Positive for sleep disturbance (difficulty falling asleep). Negative for substance abuse. OBJECTIVE Initial Vitals Temperature 02/23/23 1137 36.7 ??C Pulse Rate 02/23/23 1137 64 Heart Rate -- Resp Rate 02/23/23 1137 18 Blood Pressure 02/23/23 1137 152/86 SpO2 02/23/23 1137 97 % Pain Score 02/23/23 1140 0 - No pain PHYSICAL EXAMINATION Constitutional: Vitals reviewed. No distress. Eyes: Conjunctivae and EOM are normal. Cardiovascular: Normal rate, regular rhythm, S1 normal, S2 normal and normal heart sounds. Exam reveals no gallop and no friction rub. No murmur heard.Edema: no edema noted Pulmonary/Chest: Effort normal. No tachypnea. No respiratory distress. He has wheezes (bilateral end expiratory). Abdominal: Soft. exhibits no distension. There is no abdominal tenderness. There is no guarding. Musculoskeletal: General: No tenderness or edema. Neurological: Alert and oriented to person, place, and time. He has normal sensation and normal strength. Displays tremor (left hand on arm extension). GCS eye subscore is 4. GCS verbal subscore is 5. GCS motor subscore is 6. Normal speech. Skin: Skin is warm and dry. He is not diaphoretic. Psychiatric: He has a normal mood and affect. Behavior is normal. Thought content normal. ASSESSMENT/PLAN Assessment and Plan Pt is a 82-year-old male with a PMHx of myocardial infarction and TIA that presented to the ED after his had difficulty awakening him this morning after he had taken an additional dose of prescribed Ambien. Physical examination was overall unremarkable except for slight grogginess, and there were no neurological deficits. Differential diagnosis includes drug-induced hypersomnia, acute coronary syndrome, or hypothyroidism. Hypothyroidism is possible due to increased somnolence this morning,but it is less likely due to the absence of any other findings such as vital sign abnormalities, brittle hair, or overly dry skin. Acute coronary syndrome is also possible due to the patient's cardiac history and may be presenting today in an atypical manner. Drug-induced hypersomnia is most likelyas the patient has taken an additional dose of his prescribed Ambien and experienced hypersomnolence with difficulty awakening. He has not taken additional doses of Ambien in the past other than the past two days, so he is likely not aware of the possible effects. Plan Labs: CBC, BMP, troponin, TSH, COVID-19, influenza Imaging: ECG. DIFFERENTIAL DIAGNOSES Drug-induced hypersomnia Acute coronary syndrome Hypothyroidism. I reviewed the following external records: office records. ED Course as of 02/24/23 1627 SunFeb 23, 2023 1229 Compared with EKG of January 11, 2023 increased unifocal PVC appreciated, T- wave flattening in leads 1 and aVL old, Q-wave in lead 3 is old, and QTC decreased from 450 to 448. No STEMI or acute ischemic changes appreciated. Final Diagnoses: as of 02/24/23 1627 Hypersomnia Drug Caused (HCC) Insomnia Reaction Stress I have personally seen and examined this patient. I have fully participated in the care of this patient. I have reviewed all clinical information including history, physical exam, orders, and plan. Moralesgree with the note of the resident. I saw the patient with the medical student. I was present for or re-performed the History of Present Illness. I personally performed a Physical Exam and Medical Decision Making. I reviewed medical student documentation and agree or amended. I have reviewed and agree with the resident's note addendum. Andrea Dominguez 02/23/23 1357 Robin Barrera M.D. 02/24/23 1627 Robin Barrera M.D. 02/26/23 1346 * Dominick Louis R.N. - 02/23/2023 11:46 AM CDT Pt comes in today with increased drowsiness and altered mental status that has progressed over the last few days. Per patient has been taking additional doses of his medications at odd hours. Particularly he has been taking additional doses of his Ambien. This morning he was more difficult to arouse than he generally is and was confused and unstable with his gait that prompted the to have him come in. Patient is alert and oriented though does ramble on about the last few days. Dominick Louis R.N. 02/23/23 1158 documented in this encounter Plan of Treatment Upcoming Encounters Date Type Department Care Team (Late st Contact Info) Description 07/13/2023 1:00 PM MANAGER STUDY Virtual Visit Division of Nephrology and Hypertension in [place], [place] [address] [place] [phone] Antelmo Reese M.D. [address] [place] [phone] documented as of this encounter Procedures Procedure Name Priority Date/Time Associated Diagnosis Comments TROPONIN T, 2H/6H, 5TH GEN, P Timed 02/23/2023 2:41 PM CDT CBC WITH DIFFERENTIAL, B STAT 02/23/2023 12:31 PM CDT TROPONIN T, BASELINE, 5TH GEN, P STAT 02/23/2023 12:30 PM CDT THYROID-STIMULATING HORMONE-SENSITIVE (S-TSH) STAT 02/23/2023 12:30 PM CDT BASIC METABOLIC PANEL, S/P STAT 02/23/2023 12:30 PM CDT IFLU A, B, SARS COV-2, PCR, RAPID,V STAT 02/23/2023 12:25 PM CDT ECG STAT 02/23/2023 12:15 PM CDT documented in this encounter Results * (ABNORMAL) Troponin T, 2h/6h, 5th Gen (02/23/2023 2:41 PM CDT) Troponin T, 2 hr, 5th gen 18(H) <=15 ng/L 02/23/2023 3:04 PM CDT [facility] 2H Delta -1 ng/L 02/23/2023 3:04 PM CDT [facility] 2H Delta Interp Not Changing 02/23/2023 3:04 PM CDT ST[facility] Troponin T, 6 hr, 5th gen CANCELED ng/L 02/23/2023 3:04 PM CDT [facility] Comment:Result canceled by t he ancillary. 6H Delta CANCELED ng/L 02/23/2023 3:04 PM CDT [facility] Comment:Result canceled by t he ancillary. 6H Delta % CANCELED % 02/23/2023 3:04 PM CDT [facility] Comment:Result canceled by t he ancillary. Blood (Blood, Venous) 02/23/2023 2:41 PM CDT 02/23/2023 2:47 PM CDT Narrative [facility] - 02/23/2023 3:04 PM CDT Specimen Information: Specimen ID: [id number] Specimen Type: Blood Specimen Collection Start Date: 02/23/2023 ??2:41 PM Specimen Received Date: 02/23/2023 ??2:47 PM Specimen ID: [id number] Specimen Type: Blood Robin Barrera M.D. LAB BLOOD T KEVIN [facility] [address] [place] [address], [facility] [address] [place] [address] * (ABNORMAL) CBC with Differential, Blood (02/23/2023 12:31 PM CDT) Hemoglobin 12.7(L) 13.2 - 16.6 g/dL 02/23/2023 12:42 PM CDT [facility] Hematocrit 36.8(L) 38.3 - 48.6 % 02/23/2023 12:42 PM CDT [facility] Erythrocytes 4.11(L) 4.35 - 5.65 x10(12)/L 02/23/2023 12:42 PM CDT [facility] MCV 89.5 78.2 - 97.9 fL 02/23/2023 12:42 PM CDT [facility] RBC Distrib Width 12.5 11.8 - 14.5 % 02/23/2023 12:42 PM CDT [facility] Platelet Count 156 135 - 317 x10(9)/L 02/23/2023 12:42 PM CDT [facility] Leukocytes 8.0 3.4 - 9.6 x10(9)/L 02/23/2023 12:42 PM CDT [facility] Neutrophils 5.52 1.56 - 6.45 x10(9)/L 02/23/2023 12:42 PM CDT DH[facility] Lymphocytes 0.91(L) 0.95 - 3.07 x10(9)/L 02/23/2023 12:42 PM CDT [facility] Monocytes 1.04(H) 0.26 - 0.81 x10(9)/L 02/23/2023 12:42 PM CDT [facility] Eosinophils 0.52(H) 0.03 - 0.48 x10(9)/L 02/23/2023 12:42 PM CDT [facility] Basophils 0.03 0.01 - 0.08 x10(9)/L 02/23/2023 12:42 PM CDT [facility] Blood (Blood, Venous) 02/23/2023 12:31 PM CDT 02/23/2023 12:37 PM CDT Robin Barrera M.D. LAB BLOOD A DD-ON Performing Organization Address [facility] Co de Phone Number [facility] [address] [place] [address], [facility] [address] [place], [place] [phone] [place] [address] [address] [place] [address] * (ABNORMAL) Troponin T, Baseline, 5th gen (02/23/2023 12:30 PM CDT) Troponin T, Baseline, 5th gen 19(H) <=15 ng/L 02/23/2023 12:56 PM CDT [facility] Blood (Blood, Venous) 02/23/2023 12:30 PM CDT 02/23/2023 12:37 PM CDT Robin Barrera M.D. LAB BLOOD T ROPONIN Performing Organization Address City/[facility]/ZIP Co de Phone Number [facility] [address] [place] [address], [facility] [address] [place] [address] * S-TSH (Thyroid-Stimulating Hormone - Sensitive) (02/23/2023 12:30 PM CDT) TSH, Sensitive 1.3 0.3 - 4.2 mIU/L 02/23/2023 1:32 PM CDT DTL Blood (Blood, Venous) 02/23/2023 12:30 PM CDT 02/23/2023 12:58 PM CDT Robin Barrera M.D. LAB BLOOD A DD-ON [facility] [address] [place] [address], [facility] DTL [facility] [address] [place] [address] * (ABNORMAL) Basic Metabolic Panel (02/23/2023 12:30 PM CDT) [facility] Potassium, P 4.1 3.6 - 5.2 mmol/L 02/23/2023 12:54 PM CDT [facility] Sodium, P 129(L) 135 - 145 mmol/L 02/23/2023 12:54 PM CDT [facility] Chloride, P 93(L) 98 - 107 mmol/L 02/23/2023 12:54 PM CDT [facility] Bicarbonate, P 28 22 - 29 mmol/L 02/23/2023 12:54 PM CDT [facility] Anion Gap, P 8 7 - 15 02/23/2023 12:54 PM CDT [facility] BUN (Blood Urea Nitrogen), P 22 8 - 24 mg/dL 02/23/2023 12:54 PM CDT [facility] Creatinine 1.25 0.74 - 1.35 mg/dL 02/23/2023 12:54 PM CDT [facility] Estimated GFR (eGFR) 57(L) >=60 mL/min/BSA 02/23/2023 12:54 PM CDT [facility] Comment: Estimated GFR calculated using the 2020 CKD_EPI creatinine equation. Calcium, Total, P 9.5 8.8 - 10.2 mg/dL 02/23/2023 12:54 PM CDT [facility] Glucose, P 101 70 - 140 mg/dL 02/23/2023 12:54 PM CDT [facility] Blood (Blood, Venous) 02/23/2023 12:30 PM CDT 02/23/2023 12:37 PM CDT Robin Barrera M.D. LAB BLOOD A DD-ON [facility] [address] [place], [place] [address] [address] [place] [address] * Influenza A/B, SARS CoV-2, PCR, Rapid Symptomatic (02/23/2023 12:25 PM CDT) Influenza A, PCR, Rapid, V Negative Negative 02/23/2023 12:58 PM CDT [facility] Influenza B, PCR, Rapid, V Negative Negative 02/23/2023 12:58 PM CDT [facility] SARS CoV-2, PCR, Rapid, V Undetected Undetected 02/23/2023 12:58 PM CDT [facility] Comment: ----ADDITIONAL INFORMATION---- This RT-PCR test was performed using the [employer] SARS-CoV-2 and Influenza A/B Reagent assay from [employer], which has received Emergency Use Authorization(EUA) by the U.S. Food and Drug Administration. Fact sheets for this Emergency Use Authorization (EUA) assay can be found at the following links: For Healthcare Providers: https://www.fda.gov/media/798523/download For Patients: https://www.fda.gov/media/882585/download Infl A/B, SARS CoV-2, PCR, Source Swab, Nasopharynx 02/23/2023 12:25 PM CDT [facility] Swab (Nasopharynx) 02/23/2023 12:25 PM CDT 02/23/2023 12:25 PM CDT Robin Barrera M.D. LAB [facility] - GENERAL ORDERABLES [facility] [address] [place] [address], [facility] [address] [place] [address] * ECG 12 Lead (02/23/2023 12:15 PM CDT) Ventricular Rate ECG/Min 60 BPM MUSE AL Interval 194 ms MUSE QRSD Interval 98 ms MUSE QT Interval 448 ms MUSE QTC Interval 448 ms MUSE R Helen 36 degrees MUSE T Wave Helen 101 degrees MUSE 02/23/2023 12:1 5 PM CDT 02/23/2023 12:44 PM CDT Impressions MUSE - 02/23/2023 12:44 PM CDT Ectopic atrial rhythm Premature ventricular complexes Cannot rule out Inferior infarct Nonspecific ST and T wave abnormality When compared with ECG of 11-JAN-2023 13:16, Premature atrial complexes are no longer present Premature ventricular complexes are now present Reviewed by MARTINA Lopez Narrative Procedure Note Enrico Moody M.D., Ph.D. - 02/23/2023 IMPRESSION: Ectopic atrial rhythm Premature ventricular complexes Cannot rule out Inferior infarct Nonspecific ST and T wave abnormality When compared with ECG of 11-JAN-2023 13:16, Premature atrial complexes are no longer present Premature ventricular complexes are now present Reviewed by MARTINA Lopez Robin Barrera M.D. ECG ORDERAB LES [facility] Organization Address City/State/ZIP Co de Phone Number MUSE NA documented in this encounter Visit Diagnoses Diagnosis Hypersomnia Drug Caused (HCC)- Primary Insomnia Reaction Stress documented in this encounter Additional Health Concerns Infection Onset Date Last Indicated Resolved Time COVID19 Pending 02/23/2023 02/23/2023 02/23/2023 1 2:59 PM CDT Assessment Noted Time PHQ-9 Depression Total Score: 0 01/26/20 23 2:00 PM CDT documented as of this encounter Care Teams Financial Processing Clerk Relationship Specialty Start Date End Date Elsewhere, Pcp PCP - General Internal Medicine 02/23/23 documented as of this encounter
--- OUTSIDE RECORDS SUMMARY | 2023-07-06 08:32 | XMS_ITS | Encounter Summary ---
Author Name Unknown Organization [facility] Address [address] [place] [address] Care Team Providers Care Chemistry Intern Name Role Phone Unavailable Primary Care Provider Unavailabl e Reason for Visit * Reason Comments Med Refill Encounter Details Date Type Department Care Team (Late st Contact Info) Description 01/21/2023 Refill Division of Nephrology and Hypertension in [place], [place] [address] [place] [address] Antelmo Reese M.D. [address] [place] [address] Med Refill Social History Tobacco Use Types [...] often do you attend chur ch or sabianism services? Never 05/22/2022 Do you belong to any clubs o r organizations such as alevism groups, unions, fraternal or athletic groups, [...] Answer Date Recorded PHQ-2 Score 0 01/27/2022 [facility] - Occupational Stress Questionnaire Answer [...] or slept in a halfway (including now)? No 05/22/2022 Depression Answer Date [...] st Contact Info) Description 07/13/2023 1:00 PM OPERATIONAL ASSISTANT Virtual Visit Division of Nephrology and Hypertension in [place], [place] [address] [place] [address] Antelmo Reese M.D. 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
--- OUTSIDE RECORDS SUMMARY | 2023-07-06 08:32 | XMS_ITS | Encounter Summary ---
Author Name Unknown Organization [facility] Address [address] [place] [address] Care Team Providers Care Health Occupations Instructor Name Role Phone Unavailable Primary Care Provider Unavailabl e Reason for Referral * Outpatient (Routine) - Authorized Specialty Diagnoses / Procedures Referred By Ky t Referred To Contact Orthopedic Surgery Diagnoses Onychomycosis Pain Limb Generalized Giselle Marmolejo D.PChristianMChristian [address] [phone] [facility] Region Referral ID Status Reason Start Date Expiration Date V isits Requested Visits Authorized [id number] Authorized 01/15/2023 01/14/2026 1 1 Reason for Visit * Reason Comments Nail Problem Here for nail care Nail Problem Encounter Details Date Type Department Care Team (Latest Contact Info) Description 01/15/2023 12:30 PM CDT Comprehensive Visit Department of Orthopedic Surgery in [address] [place] [phone] Giselle Marmolejo D.PChristianMChristian [address] [phone] Onychomycosis (Primary Dx); Pain Limb Generalized Social History Tobacco Use Types Packs/Day Years [...] Answer Date Recorded PHQ-2 Score 0 01/27/2022 [facility] - Occupational [...] as of this encounter Progress Notes * iGselle Marmolejo D.P.M. - 01/15/2023 12:30 PM CDT SUBJECTIVE CHIEF COMPLAINT / REASON FOR VISIT Chief Complaint Patient presents with Right Foot - Nail Problem Here for nail care Left Foot - Nail Problem HISTORY OF PRESENT ILLNESS Familia Merrill is a 82 y.o. male seen for necessary foot care and complaint of painful thickened nails bilaterally. OBJECTIVE PHYSICAL EXAMINATION DP pulses nonpalpable bilaterally. PT pulses faintly palpable bilaterally.. Skin is thin, shiny, frail, xerotic, ruborous, cold, and atrophic bilaterally with absent digital hair growth. Nails are elongated, thick,dystrophic, incurvated, and painful times 10 with lysis, crumbling, and subungual debris. ASSESSMENT #1 Onychomycosis #2 Pain Limb Generalized PLAN Nails debrided x 10. Patient to follow up in 13 weeks for necessary foot care, sooner if questions or problems. documented in this encounter Plan of Treatment Upcoming Encounters Date Type Department Care Team (Late st Contact Info) Description 07/13/2023 1:00 PM VOCATIONAL INSTRUCTOR Virtual Visit Division of Nephrology and Hypertension in [place], [place] [address] [place] [address] Antelmo Reese M.D. [address] [place] [address] Scheduled Referrals Name Type Priority Associated Diagnoses Orde r Schedule Orthopedic Surgery office visit (clinic) Outpatient Referral Routine Onychomycosis Pain Limb Generalized Expected: 04/17/2023 (Approximate), Expires: 04/17/2024 documented as of this encounter Visit Diagnoses Diagnosis Onychomycosis- Primary Pain Limb Generalized documented in this encounter Additional Health Concerns Assessment Noted Time PHQ-9 Depression Total Score: 0 01/28/20 10:00 AM CDT documented as of this encounter
--- OUTSIDE RECORDS SUMMARY | 2023-07-06 08:33 | XMS_ITS | Encounter Summary ---
Author Name Unknown Organization [facility] Address [address] [place] [address] Care Team Providers Care Paper Goods Machine Set Up Operator Name Role Phone Unavailable Primary Care Provider Unavailabl e Reason for Visit * Reason Comments Pre-visit Intake Encounter Details Date Type Department Care Team (Latest Contact Info) Description 07/12/2022 11:00 AM EMS EDUCATOR Clinical Communication Virtual Review in [place], [place] [address] [place], [place] [address] Pre-visit Intake Social History Tobacco Use Types Packs/Day Years Used Date Smoking Tobacco: Former Cigarettes 1 60 0 11/23/1954 - 11/19/2004 Smokeless Tobacco: Never Tobacco Cessation:Counseling Given: Not Answered Alcohol Use Standard Drinks/Week [...] often do you attend chur ch or restoration services? Never 05/22/2022 Do you belong to any clubs o r organizations such as methodist groups, unions, fraternal or athletic groups, [...] Answer Date Recorded PHQ-2 Score 0 01/27/2022 [facility] - Occupational Stress [...] st Contact Info) Description 07/13/2023 1:00 PM EMS EDUCATOR Virtual Visit Division of Nephrology and Hypertension in [place], [place] [address] [place] [phone] Antelmo Reese M.D. [address] [place] [phone] documented as of this encounter Visit Diagnoses Not on filedocumented in this encounter Additional Health Concerns Assessment Noted Time PHQ-9 Depression Total Score: 0 01/28/20 22 10:00 AM CDT documented as of this encounter
--- OUTSIDE RECORDS SUMMARY | 2023-07-06 08:33 | XMS_ITS | Encounter Summary ---
Author Name Unknown Organization [facility] Address [address] [place] [address] Care Team Providers Care Perfect Binder Operator Name Role Phone Unavailable Primary Care Provider Unavailabl e Reason for Visit * Reason Onset Date Comments Previsit Intake 01/10/2023 Encounter Details Date Type Department Care Team (Latest Contact Info) Description 01/10/2023 9:30 AM CDT Clinical Communication Virtual Review in [place], [place] 200 [place], [place] [address] Previsit Intake Social History Tobacco Use Types Packs/Day [...] often do you attend chur ch or jainism services? Never 05/22/2022 Do you belong to any clubs o r organizations such as christian groups, unions, fraternal or athletic groups, [...] Answer Date Recorded PHQ-2 Score 0 01/27/2022 [facility]at ional [facility] - Occupational Stress [...] a [place] [facility] (including now)? No 05/22/2022 Depression Answer Date [...] st Contact Info) Description 07/13/2023 1:00 PM FINANCIAL DATA ANALYST Virtual Visit Division of Nephrology and Hypertension in [place], [place] [address] [place] [phone] Antelmo Reese M.D. [address] [place] [phone] documented as of this encounter Visit Diagnoses Not on filedocumented in this encounter Additional Health Concerns Assessment Noted Time PHQ-9 Depression Total Score: 0 01/28/20 22 10:00 AM CDT documented as of this encounter
--- OUTSIDE RECORDS SUMMARY | 2023-07-06 08:33 | XMS_ITS | Encounter Summary ---
Author Name Unknown Organization [facility] Address [address] [place] [address] Care Team Providers Care Cigar Head Pegger Name Role Phone Elsewhere, Pcp Primary Care Provider Unavailabl e Encounter Details Date Type Department Care Team (Late st Contact Info) Description 02/13/2017 Historical Ophthalmology [facility] Cheyenne Vallejo M.D. [address] [place] [address] Social History Tobacco Use Types Packs/Day Years Used Date Smoking Tobacco: Never Assessed Sex and Gender Information Value Date Recorded Sex Assigned at Male 04/08/2018 12:55 PM CDT Gender Identity Male 04/08/2018 12:55 PM CDT Sexual Orientation Straight 04/08/2018 12 :55 PM CDT documented as of this encounter Progress Notes * Cheyenne Vallejo M.D. - 02/13/2017 8:06 AM [...] Myopia, Presbyopia CDM Reports - EYEGEN Id: [id number] Status: Fnl documented in this encounter Plan of Treatment Upcoming Encounters Date Type Department Care Team (Late st Contact Info) Description 07/13/2023 1:00 PM FOOD BROKER Virtual Visit Division of Nephrology and Hypertension in [place], [place] [address] [place] [address] Anetlmo Reese M.D. [address] [place] [address] documented as of this encounter Visit Diagnoses Not on filedocumented in this encounter Additional Health Concerns Infection Onset Date Last Indicated Resolved Time COVID19 Pending 02/23/2023 02/23/2023 02/23/2023 1 2:59 PM CDT documented as of this encounter Care Teams Cigar Head Pegger Relationship Specialty Start Date End Date Elsewhere, Pcp PCP - General Internal Medicine 02/23/23 documented as of this encounter
--- OUTSIDE RECORDS SUMMARY | 2023-07-06 08:33 | XMS_ITS | Encounter Summary ---
Author Name Unknown Organization [facility] Address [address] [place] [address] Care Team Providers Care Certified Caregiver Name Role Phone Unavailable Primary Care Provider Unavailabl e Reason for Referral * Outpatient (Routine) - Authorized Specialty Diagnoses / Procedures Referred By Contac t Referred To Contact Nephrology and Hypertension Antelmo Reese M.D. [address] [place] [phone] [facility] Referral ID Status Reason Start Date Expiration Date V isits Requested Visits Authorized [id number] Authorized 12/04/2022 12/03/2025 1 1 Scheduling Instructions Yearly opioid contract renewal, schedule after nurse visit Reason for Visit * Reason Onset Date Comments three month opioid follow up 11/28/2022 Encounter Details Date Type Department Care Team (Latest Contact Info) Description 11/28/2022 Clinical Communication Division of Nephrology and Hypertension in [place], [place] [address] [place] [phone] Ange Leonard R.N. [address] [place] [phone] three month opioid follow up Social History Tobacco Use [...] week 05/22/2022 How often do you attend [facility] or jain services? Never 05/22/2022 Do you belong to any clubs o r organizations such as restorationist groups, unions, fraternal or athletic groups, [...] Answer Date Recorded PHQ-2 Score 0 01/27/2022 [facility] Occupat ional Health - Occupational Stress [...] Telephone Encounter - Ange Leonard R.N. - 11/28/2022 11:44 AM CDT Nephrology & Hypertension provider: Dr. Reese Date of last visit: 01/27/2022 Requested medication and dosage: Tramadol 50 mg Date of last renewal: 10/24/2022 Average number of tablets per day: 3 Number of tablets remainin Side effects: no Pain location and description: hips and buttocks Current pain ratin Controlled substance agreement on file: 02/13/2022 [place] Prescription Drug Monitoring Program (PDMP): Not a delegate Opioid Action Plan reviewed. The above information will be shared with the prescribe. documented in this encounter Plan of Treatment Upcoming Encounters Date Type Department Care Team (Late st Contact Info) Description 07/13/2023 1:00 PM MANAGER OF ENGINEERING Virtual Visit Division of Nephrology and Hypertension in [place], [place] [address] [place] [address] Antelmo Reese M.D. [address] [place] [address] Scheduled Referrals Name Type Priority Associated Diagnoses Order Schedule Nephrology and Hypertension office visit (clinic) Outpatient Referral Routine Expected: 01/26/2023, Expires: 02/29/2024 documented as of this encounter Visit Diagnoses Not on filedocumented in this encounter Additional Health Concerns Assessment Noted Time PHQ-9 Depression Total Score: 0 01/28/20 10:00 AM CDT documented as of this encounter
--- OUTSIDE RECORDS SUMMARY | 2023-07-06 08:33 | XMS_ITS | Encounter Summary ---
Author Name Unknown Organization [facility] Address [address] [place] [address] Care Team Providers Care Statistical Machine Mechanic Name Role Phone Elsewhere, Pcp Primary Care Provider Unavailabl e Encounter Details Date Type Department Care Team (Late st Contact Info) Description 03/24/2016 Historical Ophthalmology RST OPH Matilda Arana O.D. [address] [place] [address] Social History Tobacco Use Types Packs/Day Years Used Date Smoking Tobacco: Never Assessed Sex and Gender Information Value Date Recorded Sex Assigned at Male 04/08/2018 12:55 PM CDT Gender Identity Male 04/08/2018 12:55 PM CDT Sexual Orientation Straight 04/08/2018 12 :55 PM CDT documented as of this encounter Progress Notes * Matilda Alanis O.D. - 03/24/2016 1:22 PM [...] astigmatism, presbyopia). CDM Reports - EYEGEN Id: [id number] Status: Fnl documented in this encounter Plan of Treatment Upcoming Encounters Date Type Department Care Team (Late st Contact Info) Description 07/13/2023 1:00 PM ENVIRONMENTAL ENGINEERING AIDE Virtual Visit Division of Nephrology and Hypertension in [place], [place] [address] [place] [address] Antelmo Reese M.D. [address] [place] [address] documented as of this encounter Visit Diagnoses Not on filedocumented in this encounter Additional Health Concerns Infection Onset Date Last Indicated Resolved Time COVID19 Pending 02/23/2023 02/23/2023 02/23/2023 1 2:59 PM CDT documented as of this encounter Care Teams Statistical Machine Mechanic Relationship Specialty Start Date End Date Elsewhere, Pcp PCP - General Internal Medicine 02/23/23 documented as of this encounter
--- OUTSIDE RECORDS SUMMARY | 2023-07-06 08:33 | XMS_ITS | Encounter Summary ---
Author Name Unknown Organization [facility] Address [address] [place] [address] Care Team Providers Care Collar Packer Name Role Phone Unavailable Primary Care Provider Unavailabl e Reason for Visit * Reason Comments Med Refill Encounter Details Date Type Department Care Team (Late st Contact Info) Description 10/19/2022 Refill Division of Nephrology and Hypertension in [place], [place] [address] [place] [address] Antelmo Reese M.D. [address] [place] [address] Med Refill Social History Tobacco Use Types [...] often do you attend chur ch or samaritan services? Never 05/22/2022 Do you belong to any clubs o r organizations such as evangelical groups, unions, fraternal or athletic groups, [...] Answer Date Recorded PHQ-2 Score 0 01/27/2022 [facility] - Occupational Stress Questionnaire Answer Date [...] st Contact Info) Description 07/13/2023 1:00 PM HEALTH CARE ADMINISTRATOR Virtual Visit Division of Nephrology and Hypertension in [place], [place] [address] [place] [address] Antelmo Reese M.D. [address] [place] [address] documented as of this encounter Visit Diagnoses Diagnosis Pain Hip Bilateral Other Chronic Pain documented in this encounter Additional Health Concerns Assessment Noted Time PHQ-9 Depression Total Score: 0 01/28/20 22 10:00 AM CDT documented as of this encounter
--- OUTSIDE RECORDS SUMMARY | 2023-07-06 08:33 | XMS_ITS | Encounter Summary ---
Author Name Unknown Organization [facility] Address [address] [place] [address] Care Team Providers Care Carbonation Tester Name Role Phone Unavailable Primary Care Provider Unavailabl e Reason for Visit * Reason Comments Med Refill Encounter Details Date Type Department Care Team (Late st Contact Info) Description 06/20/2022 Refill Division of Nephrology and Hypertension in [place], [place] [address] [place] [address] Antelmo Reese M.D. [address] [place] [address] Med Refill Social History Tobacco Use Types [...] often do you attend chur ch or alevism services? Never 05/22/2022 Do you belong to any clubs o r organizations such as religious groups, unions, fraternal or athletic groups, [...] Answer Date Recorded PHQ-2 Score 0 01/27/2022 [facility] - Occupational Stress Questionnaire Answer [...] encounter Miscellaneous Notes * Telephone Encounter - Penelope Yarbrough RChristianN. - 06/22/2022 10:48 AM AUDIT MGR New prescription sent on 06/20/2022 T MGR documented in this encounter Plan of Treatment Upcoming Encounters Date Type Department Care Team (Late st Contact Info) Description 07/13/2023 1:00 PM AUDIT MGR Virtual Visit Division of Nephrology and Hypertension in [place], [place] [address] [place] [address] Antelmo Reese M.D. [address] [place] [address] documented as of this encounter Visit Diagnoses Diagnosis Coronary Artery Disease Without Angina Pectoris documented in this encounter Additional Health Concerns Assessment Noted Time PHQ-9 Depression Total Score: 0 01/28/20 22 10:00 AM CDT documented as of this encounter
--- OUTSIDE RECORDS SUMMARY | 2023-07-06 08:33 | XMS_ITS | Encounter Summary ---
Author Name Unknown Organization [facility] Address [address] [place] [address] Care Team Providers Care Scrap Charger Name Role Phone Unavailable Primary Care Provider Unavailabl e Reason for Referral * Outpatient (Routine) - Closed Specialty Diagnoses / Procedures Referred By Contac t Referred To Contact Diagnoses Angina Pectoris Unspecified (HCC) Procedures ECG 12 Lead Thais Briceno M.D. [address] [place] [address] [facility] Referral ID Status Reason Start Date Expiration Date Visits Re quested Visits Authorized [id number] Closed 07/13/2022 07/13/2023 1 1 CTOR OF PHILANTHROPY * Outpatient (Routine) - Closed Specialty Diagnoses / Procedures Referred By Contac t Referred To Contact Cardiovascular Disease Diagnoses Angina Pectoris Unspecified (HCC) Thais Briceno M.D. [address] [place] [address] [facility] Referral ID Status Reason Start Date Expiration Date Visits Re quested Visits Authorized [id number] Closed 07/13/2022 07/12/2025 1 1 CTOR OF PHILANTHROPY Reason for Visit * Outpatient (Routine) - Closed Specialty Diagnoses / Procedures Referred By Contac t Referred To Contact Cardiovascular Diseases / Cardiovascular Disease Diagnoses Angina Pectoris Unspecified (HCC) Antelmo Reese M.D. [address] [place] [address] [facility] Referral ID Status Reason Start Date Expiration Date Visits Re quested Visits Authorized [id number] Closed 06/08/2022 06/08/2023 1 1 Encounter Details Date Type Department Care Team (Latest Contact Info) Description 07/13/2022 10:30 AM DIRECTOR OF PHILANTHROPY Comprehensive Visit Department of Cardiovascular Medicine in [place], [place] [address] [place] [phone] Antelmo Reese M.D. [address] [place] [phone] Thais Briceno M.D. [address] [place] [phone] Angina Pectoris Unspecified ([facility]) Social History Tobacco Use Types Packs/Day Years [...] often do you attend chur ch or sabianist services? Never 05/22/2022 Do you belong to any clubs o r organizations such as scientologist groups, unions, fraternal or athletic groups, or [...] Answer Date Recorded PHQ-2 Score 0 01/27/2022 [facility] - Occupational Stress Questionnaire Answer Date [...] Sign Reading Time Taken Comments Blood Pressure 153/84 07/13/2022 10:30 AM DIRECTOR OF PHILANTHROPY 3 minute average Pulse 62 07/13/2022 10:30 AM DIRECTOR OF PHILANTHROPY Temperature - - Respiratory Rate - - Oxygen Saturation - - Inhaled Oxygen Concentration - - Weight 90.4 kg (199 lb 4.7 oz) 07/13/2022 10:30 AM DIRECTOR OF PHILANTHROPY Height 180 cm (5' 10.87) 07/13/2022 10 :30 AM DIRECTOR OF PHILANTHROPY Body Mass Index 27.9 07/13/2022 10:30 AM DIRECTOR OF PHILANTHROPY documented in this encounter Progress Notes * Cee Spears R.N. - 07/13/2022 10:30 AM CST Cardiovascular conditions: -abnormal stress test February 2014 (small defect consistent with infarction involving the inferior segment) with more frequent chest pain as of recent; originally had ???chest pain once every 2 years?? 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 The area of infarction is quantitated at 13% of the myocardium. LV size is normal. LVEF is quantitated at 59%. Regional wall motion is normal. On May 20, 2022, patient experienced left anterior chest pain which was more severe than previous episodes, resolved with three doses of nitroglycerin. The whole episode lasted less than one hour. Echo stress 05/25/22: Dobutamine stress echocardiogram negative for myocardial ischemia. Ejection fraction response from 55% at rest to 65% at peak stress. Left ventricular end-systolic volume decreased with stress. No new regional wall motion abnormalities with stress. REST IMAGES: LEFT VENTRICLE: Normal LV size. Normal LV wall thickness with prominent basal septum. Estimated LVEF 55-60%. Regional wall motion abnormalities were present. Grade 1a/3 left ventricular diastolic dysfunction, consistent with mildly elevated LV filling pressure at rest RIGHT VENTRICLE: Normal right ventricular chamber size. Normal right ventricular systolic function.Unable to detect peak tricuspid regurgitation velocity for pulmonary artery systolic pressure calculation. ATRIA: Moderately enlarged left atrial size. Left atrial volume index 44 ml/m2. Enlarged right atrial size. CARDIAC VALVES: Trileaflet aortic valve. Sclerotic aortic valve. No aortic valve regurgitation. Thickened mitral valve. Mild mitral valve regurgitation. Pulmonary valve not well visualized. Trivial pulmonary valve regurgitation. Normal tricuspid valve. Trivial tricuspid valve regurgitation. OTHER ECHO FINDINGS: Normal inferior vena cava size with normal inspiratory collapse (>50%). Normal mid ascending aorta diameter of 36 mm. No pericardial effusion. Dr. Reese increased carvedilol from 12.5mg twice daily to 18.75 twice daily. Patient presented to [facility] on June 08 with left sided chest pain-testing negative, including chest CT. Medications: amLODIPine (NORVASC) 2.5 mg tablet-patient taking half tablet aspirin 325 mg tablet carvediloL (COREG) 12.5 mg tablet twice daily finasteride (PROSCAR) 5 mg tablet losartan-hydroCHLOROthiazide (HYZAAR) 100-25 mg per tablet nitroglycerin (NITROSTAT) 0.4 mg SL tablet rosuvastatin (CRESTOR) 10 mg tablet sertraline (ZOLOFT) 50 mg tablet tamsulosin (FLOMAX) 0.4 mg 24 hr capsule traMADoL (ULTRAM) 50 mg tablet zolpidem (AMBIEN) 10 mg tablet Familia Merrill presents with intermittent chest discomfort, last episode occurring June 08, 2022 in which he took nitroglycerin without relief, prompting EMS call. He describes this pain as a squeezing, left-sided pain that did not radiate anywhere and he denied nausea/vomiting. He was hanging up [place] lights up on his 5 foot [place] tree when the discomfort developed. Mr. Merrill denies increased dyspnea outside of his chronic dyspnea on exertion. Per Dr. Chau, followup in 6 months. CTOR OF PHILANTHROPY documented in this encounter Consult Notes * Thais Briceno M.D. - 07/13/2022 10:30 AM CST SUBJECTIVE Referring Provider: Antelmo Reese M.D. Reason for Consultation: 1. Chest pain ED evaluation 2. DSE without ischemia CHIEF COMPLAINT/REASON FOR CONSULT No chief complaint on file. HISTORY OF PRESENT ILLNESS Familia Merrill is an 81y M w/ PMH of HTN, HLD, prior tobacco use, CVA 2016 (residual RLE numbness), prior small inferior infarct on nuclear stress 2013, BPH, insomnia who presents to CAD clinic to establish care after recent ED evaluation for chest pain and a DSE without evidence of ischemia. Patient endorses experiencing an episode of severe chest pain on 05/20/22 while hanging [place] lights indoors. Notes that the pain was squeezing and severe in intensity, which prompted him to seekimmediate evaluation in the ED. Pain resolved one hour after onset without intervention. ACS was ruled out in the ED, with troponin reportedly negative, EKG from ED visit not available for review, although EKG from nephrology visit on 05/24/22 demonstrates NSR, normal axis, prior inferior infarct (stable from prior EKGs); prior inferior infarct has been noted on his nuclear stress from 2013 with a small, fixed inferior defect. Per notes, patient was also evaluated in the [facility] ED on 06/08/22 for chest pain with ACS again ruled out, although patient does not recall this episode during our discussion and states that he only experienced chest pain while hanging [place] lights in April. He underwent a DSE in 05/2021 which demonstrated mild inferior hypokinesis at rest, without evidence of ischemia and patient was asymptomatic during testing. He endorses experiencing otherrare episodes of chest discomfort once a month which occur at rest after eating that he feels are related to heart burn and are relieved by belching. He does not exercise due to residual RLE weaknessafter his CVA in 2017, although he is usually active performing housework, including vacuuming. Denies experiencing any chest discomfort during exertion. Denies dyspnea, palpitations, orthopnea, PND.Occasionally has lightheadedness with leaning forward, denies falls or syncope. BP in office 144/79, HR 62. BPs at home usually 120s/70s, Hrs 60s. EKG 06/14/22 with NSR @ 73 bpm, prior inferior infarct (stable from remote EKGs, inferior infarct noted on nuclear stress 2013). Home medications: ASA 325 daily, coreg 12.5 BID, losartan-HCTZ 100-25 daily, SL NG prn, finasteride 5 daily, tamsulosin 0.4 daily, rosuvastatin 10 daily, tramadol 50 TID, ambien 10 daily. Other pertinent cardiac history includes a cryptogenic CVA in 2016, after which patient underwent ILR placement in 2016. On prior review by EP, there was no evidence of Afib and had planned to continue to monitor ILR transmissions. Previously smoked for 50 years, quit 20 years ago. 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 OBJECTIVE Vitals: 07/13/22 1030 BP: 153/84 BP Location: Right arm Patient Position: Sitting Cuff Size: Regular Pulse: 62 Weight: 90.4 kg Height: 180 cm BP Readings from Last 3 Encounters: 07/13/22 153/84 05/24/22 108/61 08/05/22 (!) 164/84 PHYSICAL EXAMINATION General appearance: alert and no distress Lungs: clear to auscultation bilaterally Heart: regular rate and rhythm, S1, S2 normal, no murmur, click, rub or gallop Abdomen: soft, non-tender; bowel sounds normal; no masses, no organomegaly Extremities: extremities normal, warm and well perfused Neurologic: Grossly normal aside from residual RLE weakness DIAGNOSTICS DSE 05/2022: Dobutamine stress echocardiogram negative for myocardial ischemia. Ejection fraction response from 55% at rest to 65% at peak stress. Left ventricular end-systolic volume decreased with stress. No new regional wall motion abnormalities with stress. REST IMAGES: LEFT VENTRICLE: Normal LV size. Normal LV wall thickness with prominent basal septum. Estimated LVEF 55-60%. Regional wall motion abnormalities were present. Grade 1a/3 left ventricular diastolic dysfunction, consistent with mildly elevated LV filling pressure at rest RIGHT VENTRICLE: Normal right ventricular chamber size. Normal right ventricular systolic function.Unable to detect peak tricuspid regurgitation velocity for pulmonary artery systolic pressure calculation. ATRIA: Moderately enlarged left atrial size. Left atrial volume index 44 ml/m2. Enlarged right atrial size. CARDIAC VALVES: Trileaflet aortic valve. Sclerotic aortic valve. No aortic valve regurgitation. Thickened mitral valve. Mild mitral valve regurgitation. Pulmonary valve not well visualized. Trivial pulmonary valve regurgitation. Normal tricuspid valve. Trivial tricuspid valve regurgitation. OTHER ECHO FINDINGS: Normal inferior vena cava size with normal inspiratory collapse (>50%). Normal mid ascending aorta diameter of 36 mm. No pericardial effusion. NM Rest and Stress 02/26/14: Small fixed defect consistent with infarction involving the inferior segment. The area of infarction is quantitated at 13% of the myocardium. LV size is normal. LVEF is quantitated at 59%. Regional wall motion is normal. ASSESSMENT / PLAN # Recent chest pain ED presentation # Dobutamine stress echo without ischemia # Prior small inferior infarct on nuclear stress 2013 # CVA 2017 with residual RLE numbness - Patient endorses feeling well and denies experiencing chest pain since his evaluation in the ED. We discussed that the chest discomfort he experiences after eating may be related to RCA ischemia vsGERD. Given the absence of inducible ischemia on his DSE and that he endorses feeling well performing housework consistently without any symptoms, he prefers initial medical management with ASA and statin and risk factor modification at this time (will decrease ASA 325mg daily to 81mg daily). Will plan for 6 month follow up for now, although patient will notify our clinic if he experiences a change or worsening of symptoms, with likely coronary angiogram at that time. Patient discussed with Dr. Ott. Thais Briceno M.D. CTOR OF PHILANTHROPY * Elgin Ott III, M.D. - 07/13/2022 10:30 AM CST I saw the patient in association with Dr. Briceno. I met with the patient reviewed his situationwith him. I examined the patient. I reviewed with Dr. Briceno the findings assessment and plan as documented in her note dated today. I concur with her findings assessment and plan. The patient has documented atherosclerotic disease with aortic plaque and a previous CVA. His exercise is somewhat limited due to the weakness of his legs and some stability concerns however he is active at home including doing housework and vacuuming without recurrent chest discomforts. He had 1 prolonged chest discomfort episode which was evaluated in emergency room with negative troponins and a subsequent stress test using dobutamine echocardiography which was negative for significant inducible ischemia. I agree with Dr. Briceno the patient is currently essentially asymptomatic, on a good atherosclerotic risk factor modification program, and a negative stress test without suggestion of left main or proximal three-vessel disease and normal global left ventricular function. I agree therefore with continued medical management without proceeding to angiography. Patient understands should he have recurrent discomfort that is either progressively exertionally limited, rest/nocturnal, or prolonged that he should have urgent or emergent evaluation including activating the 911 emergency medical system. Remainder of the findings and recommendations as per Dr. Briceno. CTOR OF PHILANTHROPY documented in this encounter Plan of Treatment Upcoming Encounters Date Type Department Care Team (Late st Contact Info) Description 07/13/2023 1:00 PM DIRECTOR OF PHILANTHROPY Virtual Visit Division of Nephrology and Hypertension in [place], [place] [address] [place] [address] Antelmo Reese M.D. [address] [place] [address] Scheduled Referrals Name Type Priority Associated Diagnoses Order Schedule Cardiovascular Disease office visit (clinic) CAD Outpatient Referral Routine Angina Pectoris Unspecified (HCC) Expected: 01/10/2023 (Approximate), Expires: 10/12/2023 documented as of this encounter Results * ECG 12 Lead (01/11/2023 1:16 PM CDT) Ventricular Rate ECG/Min 67 BPM MUSE MS Interval 168 ms MUSE QRSD Interval 94 ms MUSE QT Interval 426 ms MUSE QTC Interval 450 ms MUSE R [place] 24 degrees MUSE T Wave [place] 76 degrees MUSE 01/11/2023 1:16 PM CDT 01/11/2023 1:18 PM CDT Impressions MUSE - 01/11/2023 1:18 PM CDT Unusual P axis, possible ectopic atrial rhythm Premature atrial complexes Cannot rule out Inferior infarct Nonspecific T wave abnormality When compared with ECG of 14-JUN-2022 09:01, Premature atrial complexes are now present Rhythm has changed Reviewed by MARTINA Richter Narrative Procedure Note Enrico Moody M.D., Ph.D. - 01/11/2023 IMPRESSION: Unusual P axis, possible ectopic atrial rhythm Premature atrial complexes Cannot rule out Inferior infarct Nonspecific T wave abnormality When compared with ECG of 14-JUN-2022 09:01, Premature atrial complexes are now present Rhythm has changed Reviewed by MARTINA Richter Thais Briceno M.D. ECG ORDERABLES MUSE NA * (ABNORMAL) CBC with Differential, Blood (01/11/2023 [...] CDT Thais Briceno M.D. LAB BLOOD ADD-ON [facility] [address] [place] [address], [facility] [place] [address] [place] [address] * (ABNORMAL) Comprehensive Metabolic Panel (01/11/2023 12:54 PM CDT) Pathologist [facility] Potassium, S 4.5 3.6 - 5.2 mmol/L [...] CDT Thais Briceno M.D. LAB BLOOD ADD-ON [facility] [address] [place] [address], [facility] D[facility] [address] [address] documented in this encounter Visit Diagnoses Diagnosis Angina Pectoris Unspecified (HCC) documented in this encounter Additional Health Concerns Assessment Noted Time PHQ-9 Depression Total Score: 0 01/28/20 22 10:00 AM CDT documented as of this encounter
--- OUTSIDE RECORDS SUMMARY | 2023-07-06 08:33 | XMS_ITS | Encounter Summary ---
Author Name Unknown Organization [facility] Address [address] [place] [address] Care Team Providers Care Nursing Secretary Name Role Phone Unavailable Primary Care Provider Unavailabl e Encounter Details Date Type Department Care Team (Late st Contact Info) Description 07/21/2022 Clinical Communication Division of Nephrology and Hypertension in [place], [place] [address] [place] [phone] Antelmo Reese M.D. [address] [place] [address] Social History Tobacco Use Types Packs/Day Years [...] often do you attend chur ch or yazdanism services? Never 05/22/2022 Do you belong to any clubs o r organizations such as cheondoism groups, unions, fraternal or athletic groups, [...] Answer Date Recorded PHQ-2 Score 0 01/27/2022 [facility]at ional Health - [...] Info) Description 07/13/2023 1:00 PM DIRECTOR OF INDUSTRIAL RELATIONS Virtual Visit Division of Nephrology and Hypertension in [place], [place] [address] [place] [phone] Antelmo Reese M.D. [address] [place] [phone] documented as of this encounter Visit Diagnoses Not on filedocumented in this encounter Additional Health Concerns Assessment Noted Time PHQ-9 Depression Total Score: 0 01/28/20 22 10:00 AM CDT documented as of this encounter
--- OUTSIDE RECORDS SUMMARY | 2023-07-06 08:33 | XMS_ITS | Encounter Summary ---
Author Name Unknown Organization [facility] Address [address] [place] [address] Care Team Providers Care Skin Care Consultant Name Role Phone Unavailable Primary Care Provider Unavailabl e Encounter Details Date Type Department Care Team (Late st Contact Info) Description 10/12/2022 Orders Only Division of Nephrology and Hypertension in [place], [place] [address] [place] [address] Antelmo Reese M.D. [address] [place] [address] Social History Tobacco Use Types Packs/Day Years [...] often do you attend chur ch or presybeterian services? Never 05/22/2022 Do you belong to any clubs o r organizations such as druze groups, unions, fraternal or athletic groups, [...] Answer Date Recorded PHQ-2 Score 0 01/27/2022 [facility] of Occupat ional Health - Occupational [...] st Contact Info) Description 07/13/2023 1:00 PM FOLDING MACHINE OPERATOR Virtual Visit Division of Nephrology and Hypertension in [place], [place] [address] [place] [phone] Antelmo Reese M.D. [address] [place] [phone] documented as of this encounter Visit Diagnoses Not on filedocumented in this encounter Additional Health Concerns Assessment Noted Time PHQ-9 Depression Total Score: 0 01/28/20 22 10:00 AM CDT documented as of this encounter
--- OUTSIDE RECORDS SUMMARY | 2023-07-06 08:33 | XMS_ITS | Encounter Summary ---
Author Name Unknown Organization [facility] Address [address] [place] [address] Care Team Providers Care Hog Cooler Name Role Phone Unavailable Primary Care Provider Unavailabl e Reason for Visit * Reason Onset Date Comments 3 month chronic opioid review 09/11/2022 Encounter Details Date Type Department Care Team (Latest Contact Info) Description 09/11/2022 Clinical Communication Division of Nephrology and Hypertension in [place], [place] [address] [place] [address] Ange Leonard, R.N. [address] [place] [address] 3 month chronic opioid review Social History Tobacco Use Types Packs/Day Years [...] often do you attend chur ch or mosque services? Never 05/22/2022 Do you belong to [...] Date Recorded PHQ-2 Score 0 01/27/2022 [facility] - Occupational Stress Questionnaire Answer Date [...] Telephone Encounter - Ange Leonard R.N. - 09/11/2022 2:40 PM CDT Nephrology & Hypertension provider: Dr. Reese Date of last visit: 06/14/2022 Requested medication and dosage: Tramadol 50 mg Date of last renewal: 05/03/2022 Average number of tablets per day: 3 Number of tablets remaining: about 200 Side effects: no Pain location and description: buttocks and hips-achy Current pain ratin Controlled substance agreement on file: 01/27/2022 [place] Prescription Drug Monitoring Program (PDMP): Not a delegate Opioid Action Plan reviewed. documented in this encounter Plan of Treatment Upcoming Encounters Date Type Department Care Team (Late st Contact Info) Description 07/13/2023 1:00 PM FRONT DESK SPECIALIST Virtual Visit Division of Nephrology and Hypertension in [place], [place] [address] [place] [address] Antelmo Reese M.D. [address] [place] [address] documented as of this encounter Visit Diagnoses Not on filedocumented in this encounter Additional Health Concerns Assessment Noted Time PHQ-9 Depression Total Score: 0 01/28/20 22 10:00 AM CDT documented as of this encounter
--- OUTSIDE RECORDS SUMMARY | 2023-07-06 08:33 | XMS_ITS | Encounter Summary ---
Author Name Unknown Organization [facility] Address [address] [place] [address] Care Team Providers Care Junior Copywriter Name Role Phone Elsewhere, Pcp Primary Care Provider Unavailabl e Encounter Details Date Type Department Care Team (Late st Contact Info) Description 04/06/2015 Historical Ophthalmology [facility] OPH Ric August O.D. [address] [place] [phone] Social History Tobacco Use Types Packs/Day Years Used Date Smoking Tobacco: Never Assessed Sex and Gender Information Value Date Recorded Sex Assigned at Male 04/08/2018 12:55 PM CDT Gender Identity Male 04/08/2018 12:55 PM CDT Sexual Orientation Straight 04/08/2018 12 :55 PM CDT documented as of this encounter Progress Notes * Ric August O.D. - 04/06/2015 7:30 AM [...] astigmatism, presbyopia). CDM Reports - EYEGEN Id: [id number] Status: Fnl documented in this encounter Plan of Treatment Upcoming Encounters Date Type Department Care Team (Late st Contact Info) Description 07/13/2023 1:00 PM INDUSTRIAL CHEMISTRY TEACHER Virtual Visit Division of Nephrology and Hypertension in [place], [place] [address] [place] [address] Antelmo Reese M.D. [address] [place] [address] documented as of this encounter Visit Diagnoses Not on filedocumented in this encounter Additional Health Concerns Infection Onset Date Last Indicated Resolved Time COVID19 Pending 02/23/2023 02/23/2023 02/23/2023 1 2:59 PM CDT documented as of this encounter Care Teams Junior Copywriter Relationship Specialty Start Date End Date Elsewhere, Pcp PCP - General Internal Medicine 02/23/23 documented as of this encounter
--- OUTSIDE RECORDS SUMMARY | 2023-07-06 08:33 | XMS_ITS | Encounter Summary ---
Author Name Unknown Organization [facility] Address [address] [place] [address] Care Team Providers Care Mixer Blender Name Role Phone Elsewhere, Pcp Primary Care Provider Unavailabl e Encounter Details Date Type Department Care Team (Late st Contact Info) Description 03/03/2014 Historical Ophthalmology RST OPH Ric August O.D. [address] [place] [address] Social History Tobacco Use Types Packs/Day Years Used Date Smoking Tobacco: Never Assessed Sex and Gender Information Value Date Recorded Sex Assigned at Male 04/08/2018 12:55 PM CDT Gender Identity Male 04/08/2018 12:55 PM CDT Sexual Orientation Straight 04/08/2018 12 :55 PM CDT documented as of this encounter Progress Notes * Ric August O.D. - 03/03/2014 2:24 PM [...] astigmatism, presbyopia). CDM Reports - EYEGEN Id: [id number] Status: Fnl documented in this encounter Plan of Treatment Upcoming Encounters Date Type Department Care Team (Late st Contact Info) Description 07/13/2023 1:00 PM AOC OPERATIONS INTELLIGENCE CHIEF Virtual Visit Division of Nephrology and Hypertension in [place], [place] [address] [place] [address] Antelmo Reese M.D. [address] [place] [address] documented as of this encounter Visit Diagnoses Not on filedocumented in this encounter Additional Health Concerns Infection Onset Date Last Indicated Resolved Time COVID19 Pending 02/23/2023 02/23/2023 02/23/2023 1 2:59 PM CDT documented as of this encounter Care Teams Mixer Blender Relationship Specialty Start Date End Date Elsewhere, Pcp PCP - General Internal Medicine 02/23/23 documented as of this encounter
--- OUTSIDE RECORDS SUMMARY | 2023-07-06 08:33 | XMS_ITS | Encounter Summary ---
Author Name Unknown Organization [facility] Address [address] [place] [address] Care Team Providers Care Client Services Administrator Name Role Phone Unavailable Primary Care Provider Unavailabl e Reason for Visit * Reason Comments Med Refill Encounter Details Date Type Department Care Team (Late st Contact Info) Description 10/07/2022 Refill Division of Nephrology and Hypertension in [place], [place] [address] [place] [address] Antelmo Reese M.D. [address] [place] [address] Med Refill Social History Tobacco Use Types [...] often do you attend chur ch or mormon services? Never 05/22/2022 Do you belong to [...] Answer Date Recorded PHQ-2 Score 0 01/27/2022 [facility] - Occupational Stress Questionnaire Answer Date [...] encounter Miscellaneous Notes * Telephone Encounter - Jorge Luis Rosas M.D. - 10/09/2022 3:15 PM CDT I would ask that Dr. Reese renew this medication and/or have the patient's Primary Care Physician/ Sleep Medicine provider renew the medication. This medication is beyond the scope of my practice and expertise. EVENS Rosas MD documented in this encounter Plan of Treatment Upcoming Encounters Date Type Department Care Team (Late st Contact Info) Description 07/13/2023 1:00 PM PASTRY CHEF Virtual Visit Division of Nephrology and Hypertension in [place], [place] [address] [place] [address] Antelmo Reese M.D. [address] [place] [address] documented as of this encounter Visit Diagnoses Diagnosis Insomnia documented in this encounter Additional Health Concerns Assessment Noted Time PHQ-9 Depression Total Score: 0 01/28/20 22 10:00 AM CDT documented as of this encounter
--- OUTSIDE RECORDS SUMMARY | 2023-07-06 08:33 | XMS_ITS | Encounter Summary ---
Author Name Unknown Organization [facility] Address [address] [place] [address] Care Team Providers Care Media Buyer Name Role Phone Unavailable Primary Care Provider Unavailabl e Reason for Visit * Outpatient (Routine) - Closed Specialty Diagnoses / Procedures Referred By Contac t Referred To Contact Cardiovascular Disease Diagnoses Angina Pectoris Unspecified (HCC) Thais Briceno M.D. [address] [place] [phone] [facility] Referral ID Status Reason Start Date Expiration Date Visits Re quested Visits Authorized [id number] Closed 07/13/2022 07/12/2025 1 1 Encounter Details Date Type Department Care Team (Latest Contact Info) Description 01/11/2023 4:00 PM CDT Office Visit Department of Cardiovascular Medicine in [place], [place] [address] [place] [phone] Thais Briceno M.D. [address] [place] [phone] Angely Ryan, CUP MACHINE OPERATOR, C.N.P., D.N.P. [address] [place] [phone] Atherosclerotic Heart Disease Of [place] Coronary Artery Without Angina Pectoris (Primary Dx); Hyponatremia; Hypertension Essential Primary Social History Tobacco Use [...] often do you attend chur ch or mandaen services? Never 05/22/2022 Do you belong to any clubs o r organizations such as bahai groups, unions, fraternal or athletic groups, [...] Score 0 01/27/2022 [facility] - Occupational [...] Sign Reading Time Taken Comments Blood Pressure 148/79 01/11/2023 1:46 PM CDT Pulse 66 01/11/2023 1:46 PM CDT Temperature - - Respiratory Rate - - Oxygen Saturation - - Inhaled Oxygen Concentration - - Weight 91 kg (200 lb 9.9 oz) 01/11/2023 1:46 PM CDT Height 179.8 cm (5' 10.79) 01/11/2023 1:46 PM C DT Body Mass Index 28.15 01/11/2023 1:46 PM CDT documented in this encounter Progress Notes * Angely Ryan, TASHA, C.N.P., D.N.P. - 01/11/2023 4:00 PM CDT CHIEF COMPLAINT/REASON FOR VISIT CAD followup HISTORY OF PRESENT ILLNESS Familia Merrill is a 82 y.o. male from [facility] who presents for chest pain followup. He has beenevaluated by Dr. Ott in the past (06/2022). 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 Chest pain history outlined as follows: 02/2014: NM Stress: Small fixed defect consistent with infarction involving the inferior segment. The area of infarction was quantitated at 13% of the myocardium. LVEF 59%. 05/2021: Dobutamine stress echo: Mild inferior hypokinesis at rest without evidence of ischemia. He was asymptomatic during the test. 04/2022: Episode of left anterior chest pain while hanging [employer] lights. He presented to his local ER and was ruled out for ACS. 05/2022: Local ER with chest pain. He was again ruled out for ACS. 06/2022: 2nd opinion CAD Clinic for rare episodes of postprandial chest discomfort that would resolve with belching. No exertional symptoms. It was felt that his discomfort could be related to RCA ischemia vs GERD. After further discussion, he with medical therapy. Since June 2022 he has not had recurrence of the postprandial chest discomfort. He is currently not partaking in an exercise routine primarily due to balance concerns. He is not had any falls overthe last year. The most exertion that he was performed over the last couple of weeks is vacuum. He has no symptoms or limitations with this. Denies chest pain or pressure, shortness of breath, lightheaded or dizziness, syncope, palpitations, edema, or stroke- like symptoms. Last TTE from 2021 showed normal biventricular chamber size with an LVEF of 55- 60%. Inferior hypokinesis present at rest. Left atrium was moderately enlarged. Enlarged right atrial size. Sclerotic aortic valve. Thickened mitral valve with mild mitral valve regurgitation. Current cardiovascular medications include: - Antiplatelet therapy: Aspirin 325 mg daily - Hyperlipidemia treatment: Rosuvastatin 10 mg daily - Blood pressure: Amlodipine 2.5 mg daily, carvedilol 12.5 mg b.i.d., losartan- hydrochlorothiazide 100-25 mg daily - Diabetes management: NA Current Outpatient Medications Medication Instructions acetaminophen (TYLENOL) 500 mg tablet 1-2 tablets, oral, 3 times daily PRN, pain amLODIPine (NORVASC) 2.5 mg tablet TAKE ONE TABLET BY MOUTH ONE TIME DAILY aspirin 325 mg tablet 1 tablet, oral, Daily carvediloL (COREG) 12.5 mg, oral, 2 times daily with meals finasteride (PROSCAR) 5 mg, oral, Daily lanolin/mineral oil/petrolatum (ARTIFICIAL TEARS OPHT) 1 drop, ophthalmic, As needed, As needed (both eyes). loratadine (CLARITIN) 10 mg, oral, Daily losartan-hydroCHLOROthiazide (HYZAAR) 100-25 mg per tablet 1 tablet, oral, Every morning nitroglycerin (NITROSTAT) 0.[address] 1 tablet under the tongue every 5 minutes if needed for chest pain. max 3 tablets/15 minutes. POLYETHYLENE GLYCOL 3350 ORAL 1 g, oral, As needed, MiraLAX powder rosuvastatin (CRESTOR) 10 mg tablet TAKE ONE TABLET BY MOUTH IN THE EVENING sertraline (ZOLOFT) 50 mg tablet TAKE ONE TABLET BY MOUTH ONE TIME DAILY tamsulosin (FLOMAX) 0.4 mg 24 hr capsule TAKE ONE CAPSULE BY MOUTH ONE TIME DAILY traMADoL (ULTRAM) 50 mg, oral, 3 times daily zolpidem (AMBIEN) 10 mg tablet TAKE ONE TABLET BY MOUTH ONE TIME DAILY AT BEDTIME The following portions of the patient's history were reviewed and updated as appropriate: allergies, current medications, family history, medical history, social history, surgical history, and problem list. REVIEW OF SYSTEMS CVD ROS - Complete: Pertinent items are noted in HPI; all other review of systems was negative. OBJECTIVE Vitals: 01/11/23 1346 BP: 148/79 BP Location: Right arm Patient Position: Sitting Cuff Size: Regular Pulse: 66 Weight: 91 kg Height: 179.8 cm Body mass index is 28.15 kg/m??. PHYSICAL EXAMINATION General: This is a pleasant talkative male seen in the sitting position is alert and oriented x4. No significant abnormalities to body habitus DIAGNOSTICS LABS: Recent Results (from the past 72 hour(s)) Comprehensive Metabolic Panel Collection Time: 01/11/23 12:54 PM Result Value Potassium, S 4.5 Sodium, S 129 (L) Chloride, S 91 (L) Bicarbonate, S 28 Anion Gap 10 BUN (Blood Urea Nitrogen), S 21 Creatinine 1.33 Estimated GFR (eGFR) 53 (L) Calcium, Total, S 9.5 Glucose, S 95 Protein, Total, S 6.5 Albumin, S 4.4 Aspartate Aminotransferase (AST), S 20 Alkaline Phosphatase, S 123 Alanine Aminotransferase (ALT), S 11 Bilirubin, Total, S 0.5 CBC with Differential, Blood Collection Time: 01/11/23 12:55 PM Result Value Hemoglobin 13.0 (L) Hematocrit 37.5 (L) Erythrocytes 4.25 (L) MCV 88.2 RBC Distrib Width 12.4 Platelet Count 190 Leukocytes 8.8 Neutrophils 6.52 (H) Lymphocytes 0.89 (L) Monocytes 0.90 (H) Eosinophils 0.46 Basophils 0.04 ECG: ECG 12 Lead Result Date: 01/11/2023 Unusual P axis, possible ectopic atrial rhythm Premature atrial complexes Cannot rule out Inferior infarct Nonspecific T wave abnormality When compared with ECG of 14-JUN-2022 09:01, Premature atrial complexes are now present Rhythm has changed Reviewed by MARTINA Richter ASSESSMENT / PLAN #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 Giventhat he has not had any symptoms, further diagnostic cardiac testing is not warranted at this time.I encouraged him to continue focusing on CAD risk factor management including following the Mediterranean diet and gradually increasing his exercise routine. He did have additional blood work performed today that revealed hyponatremia (129). It appears thatthis is the 1st time he has had a lower sodium level. I have placed an order for repeat blood work to be performed in approximately 2 weeks for re-evaluation, and then he can follow-up with Dr. Reese (his PCP) regarding next steps if it continues to be low. It was a pleasure meeting this patient today. Patient was agreeable to the plan. All questions and concerns addressed. documented in this encounter Plan of Treatment Upcoming Encounters Date Type Department Care Team (Late st Contact Info) Description 07/13/2023 1:00 PM MANAGER SUPPLY CHAIN PLANNING Virtual Visit Division of Nephrology and Hypertension in [place], [place] [address] [place] [address] Antelmo Reese M.D. [address] [place] [phone] documented as of this encounter Results * (ABNORMAL) Basic Metabolic [...] APRN, C.N.P., D.N.P. LA B BLOOD ADD-[facility] [address] [place] [address], [facility] DTL [facility] [address] [place] [address] documented in this encounter Visit Diagnoses Diagnosis Atherosclerotic Heart Disease Of [place] Coronary Artery Without Angina Pectoris- Primary Hyponatremia Hypertension Essential Primary documented in this encounter Additional Health Concerns Assessment Noted Time PHQ-9 Depression Total Score: 0 01/28/20 10:00 AM CDT documented as of this encounter
--- OUTSIDE RECORDS SUMMARY | 2023-07-06 08:34 | XMS_ITS | Encounter Summary ---
Author Name Unknown Organization [facility] Address [address] [place] [address] Care Team Providers Care Lead Caster Name Role Phone Elsewhere, Pcp Primary Care Provider Unavailabl e Encounter Details Date Type Department Care Team (Late st Contact Info) Description 03/21/2012 Historical Ophthalmology RST OPH Maurice Cottrell M.D. [address] [place] [phone] Social History Tobacco Use Types Packs/Day Years Used Date Smoking Tobacco: Never Assessed Sex and Gender Information Value Date Recorded Sex Assigned at Male 04/08/2018 12:55 PM CDT Gender Identity Male 04/08/2018 12:55 PM CDT Sexual Orientation Straight 04/08/2018 12 :55 PM CDT documented as of this encounter Progress Notes * Maurice Cottrell M.D. - 03/21/2012 10:10 AM CDT Eye General CHIEF COMPLAINT watery/itchy eyes HISTORY OF PRESENT ILLNESS Watering and itching; both eyes ; x several months; intermittently; symptoms are moderate; worse inevenings. Denies difficulty reading or driving, but wishes [...] astigmatism, presbyopia). CDM Reports - EYEGEN Id: [id number] Status: Fnl documented in this encounter Plan of Treatment Upcoming Encounters Date Type Department Care Team (Late st Contact Info) Description 07/13/2023 1:00 PM HEAT PLANT SPECIALIST Virtual Visit Division of Nephrology and Hypertension in [place], [place] [address] [place] [address] Antelmo Reese M.D. [address] [place] [address] documented as of this encounter Visit Diagnoses Not on filedocumented in this encounter Additional Health Concerns Infection Onset Date Last Indicated Resolved Time COVID19 Pending 02/23/2023 02/23/2023 02/23/2023 1 2:59 PM CDT documented as of this encounter Care Teams Lead Caster Relationship Specialty Start Date End Date Elsewhere, Pcp PCP - General Internal Medicine 02/23/23 documented as of this encounter
--- OUTSIDE RECORDS SUMMARY | 2023-07-06 08:34 | XMS_ITS | Encounter Summary ---
Author Name Unknown Organization [facility] Address [address] [place] [address] Care Team Providers Care Tire Cord Weaver Name Role Phone Elsewhere, Pcp Primary Care Provider Unavailabl e Encounter Details Date Type Department Care Team (Late st Contact Info) Description 03/15/2011 Historical Ophthalmology RST OPH Avelino Valdes M.D. [address] [place] [phone] Social History Tobacco Use Types Packs/Day Years Used Date Smoking Tobacco: Never Assessed Sex and Gender Information Value Date Recorded Sex Assigned at Male 04/08/2018 12:55 PM CDT Gender Identity Male 04/08/2018 12:55 PM CDT Sexual Orientation Straight 04/08/2018 12 :55 PM CDT documented as of this encounter Progress Notes * Avelino Valdes M.D. - 03/15/2011 10:13 AM [...] olvera pt wishes to proceed. iols done, [place]. 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 [address] [place] [address] documented as of this encounter Visit Diagnoses Not on filedocumented in this encounter Additional Health Concerns Infection Onset Date Last Indicated Resolved Time COVID19 Pending 02/23/2023 02/23/2023 02/23/2023 1 2:59 PM CDT documented as of this encounter Care Teams Tire Cord Weaver Relationship Specialty Start Date End Date Elsewhere, Pcp PCP - General Internal Medicine 02/23/23 documented as of this encounter
--- OUTSIDE RECORDS SUMMARY | 2023-07-06 08:34 | XMS_ITS | Encounter Summary ---
Author Name Unknown Organization [facility] Address [address] [place] [address] Care Team Providers Care Vacuum Metalizer Operator Name Role Phone Elsewhere, Pcp Primary Care Provider Unavailabl e Encounter Details Date Type Department Care Team (Late st Contact Info) Description 04/20/2010 Historical Ophthalmology RST OPH Avelino Valdes M.D. [address] [place] [phone] Social History Tobacco Use Types Packs/Day Years Used Date Smoking Tobacco: Never Assessed Sex and Gender Information Value Date Recorded Sex Assigned at Male 04/08/2018 12:55 PM CDT Gender Identity Male 04/08/2018 12:55 PM CDT Sexual Orientation Straight 04/08/2018 12 :55 PM CDT documented as of this encounter Progress Notes * Avelino Valdes M.D. - 04/20/2010 9:16 AM CDT Eye Postoperative MULTI-VISIT DOCUMENT This document contains multiple patient visits and is available for review in Document Viewer. CDM Reports - EYEPO Id: [id number] Status: Fnl documented in this encounter Plan of Treatment Upcoming Encounters Date Type Department Care Team (Late st Contact Info) Description 07/13/2023 1:00 PM TRIMMING MACHINE SET UP OPERATOR Virtual Visit Division of Nephrology and Hypertension in [place], [place] [address] [place] [phone] Antelmo Reese M.D. [address] [place] [address] documented as of this encounter Visit Diagnoses Not on filedocumented in this encounter Additional Health Concerns Infection Onset Date Last Indicated Resolved Time COVID19 Pending 02/23/2023 02/23/2023 02/23/2023 1 2:59 PM CDT documented as of this encounter Care Teams Vacuum Metalizer Operator Relationship Specialty Start Date End Date Elsewhere, Pcp PCP - General Internal Medicine 02/23/23 documented as of this encounter
--- OUTSIDE RECORDS SUMMARY | 2023-07-06 08:34 | XMS_ITS | Encounter Summary ---
Author Name Unknown Organization [facility] Address [address] [place] [address] Care Team Providers Care 3Rd Mate Name Role Phone Elsewhere, Pcp Primary Care Provider Unavailabl e Encounter Details Date Type Department Care Team (Late st Contact Info) Description 03/15/2011 Historical Ophthalmology RST OPH Radhika Valadez [address] [place] [phone] Social History Tobacco Use Types Packs/Day Years Used Date Smoking Tobacco: Never Assessed Sex and Gender Information Value Date Recorded Sex Assigned at Male 04/08/2018 12:55 PM CDT Gender Identity Male 04/08/2018 12:55 PM CDT Sexual Orientation Straight 04/08/2018 12 :55 PM CDT documented as of this encounter Progress Notes * Radhika Valadez - 03/15/2011 11:40 AM CDT Eye Subsequent Visit HISTORY OF PRESENT ILLNESS Cataract surgery right eye with DR. Valdes 03-31-11. [phone] CDM Reports - EYESV Id: [id number] Status: Fnl documented in this encounter Plan of Treatment Upcoming Encounters Date Type Department Care Team (Late st Contact Info) Description 07/13/2023 1:00 PM MACHINE TRACER Virtual Visit Division of Nephrology and Hypertension in [place], [place] [address] [place] [phone] Antelmo Reese M.D. [address] [place] [phone] documented as of this encounter Visit Diagnoses Not on filedocumented in this encounter Additional Health Concerns Infection Onset Date Last Indicated Resolved Time COVID19 Pending 02/23/2023 02/23/2023 02/23/2023 1 2:59 PM CDT documented as of this encounter Care Teams 3Rd Mate Relationship Specialty Start Date End Date Elsewhere, Pcp PCP - General Internal Medicine 02/23/23 documented as of this encounter
--- OUTSIDE RECORDS SUMMARY | 2023-07-06 08:34 | XMS_ITS | Encounter Summary ---
Author Name Unknown Organization [facility] Address [address] [place] [address] Care Team Providers Care Outdoor Guide Name Role Phone Elsewhere, Pcp Primary Care Provider Unavailabl e Encounter Details Date Type Department Care Team (Late st Contact Info) Description 03/02/2008 Historical Ophthalmology RST OPH Ferny Astorga O.D., Ph.D. Social History Tobacco Use Types Packs/Day Years Used Date Smoking Tobacco: Never Assessed Sex and Gender Information Value Date Recorded Sex Assigned at Male 04/08/2018 12:55 PM CDT Gender Identity Male 04/08/2018 12:55 PM CDT Sexual Orientation Straight 04/08/2018 12 :55 PM CDT documented as of this encounter Progress Notes * Ferny Astorga O.D., Ph.D. - 03/02/2008 9:33 [...] feels his distance vision is pretty good with his glasses. He has floaters occasionally. These he feels are new in the last few years. He denies flashes of light. 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 [address] [place] [address] documented as of this encounter Visit Diagnoses Not on filedocumented in this encounter Additional Health Concerns Infection Onset Date Last Indicated Resolved Time COVID19 Pending 02/23/2023 02/23/2023 02/23/2023 1 2:59 PM CDT documented as of this encounter Care Teams Outdoor Guide Relationship Specialty Start Date End Date Elsewhere, Pcp PCP - General Internal Medicine 02/23/23 documented as of this encounter
--- OUTSIDE RECORDS SUMMARY | 2023-07-06 08:34 | XMS_ITS | Encounter Summary ---
Author Name Unknown Organization [facility] Address [address] [place] [address] Care Team Providers Care Sinter Feeder Name Role Phone Elsewhere, Pcp Primary Care Provider Unavailabl e Encounter Details Date Type Department Care Team (Late st Contact Info) Description 05/05/2011 Historical Ophthalmology RST OPH Avelino Valdes M.D. [address] [place] [phone] Social History Tobacco Use Types Packs/Day Years Used Date Smoking Tobacco: Never Assessed Sex and Gender Information Value Date Recorded Sex Assigned at Male 04/08/2018 12:55 PM CDT Gender Identity Male 04/08/2018 12:55 PM CDT Sexual Orientation Straight 04/08/2018 12 :55 PM CDT documented as of this encounter Progress Notes * Avelino Valdes M.D. - 05/05/2011 2:12 PM CST Eye Postoperative MULTI-VISIT DOCUMENT This document contains multiple patient visits and is available for review in Document Viewer. CDM Reports - EYEPO Id: [id number] Status: Fnl documented in this encounter Plan of Treatment Upcoming Encounters Date Type Department Care Team (Late st Contact Info) Description 07/13/2023 1:00 PM PROJECT DEVELOPMENT MANAGER Virtual Visit Division of Nephrology and Hypertension in [place], [place] [address] [place] [phone] Antelmo Reese M.D. [address] [place] [address] documented as of this encounter Visit Diagnoses Not on filedocumented in this encounter Additional Health Concerns Infection Onset Date Last Indicated Resolved Time COVID19 Pending 02/23/2023 02/23/2023 02/23/2023 1 2:59 PM CDT documented as of this encounter Care Teams Sinter Feeder Relationship Specialty Start Date End Date Elsewhere, Pcp PCP - General Internal Medicine 02/23/23 documented as of this encounter
--- OUTSIDE RECORDS SUMMARY | 2023-07-06 08:34 | XMS_ITS | Encounter Summary ---
Author Name Unknown Organization [facility] Address [address] [place] [address] Care Team Providers Care Chair Mechanic Name Role Phone Elsewhere, Pcp Primary Care Provider Unavailabl e Encounter Details Date Type Department Care Team (Late st Contact Info) Description 05/28/2007 Historical Ophthalmology RST OPH Geeta Del Rosario M.D. Social History Tobacco Use Types Packs/Day Years Used Date Smoking Tobacco: Never Assessed Sex and Gender Information Value Date Recorded Sex Assigned at Male 04/08/2018 12:55 PM CDT Gender Identity Male 04/08/2018 12:55 PM CDT Sexual Orientation Straight 04/08/2018 12 :55 PM CDT documented as of this encounter Progress Notes * Geeta Del Rosario M.D. - 05/28/2007 8:22 [...] has prescription reading glasses. Intermittent rare floaters botheyes x a few years. History of stroke x 4 years ago and he has lost peripheral vision on his right s ai. Patient denies flashes of light and ocular pain both eyes. 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 Automated visual field completed. 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 [address] [place] [address] documented as of this encounter Visit Diagnoses Not on filedocumented in this encounter Additional Health Concerns Infection Onset Date Last Indicated Resolved Time COVID19 Pending 02/23/2023 02/23/2023 02/23/2023 1 2:59 PM CDT documented as of this encounter Care Teams Chair Mechanic Relationship Specialty Start Date End Date Elsewhere, Pcp PCP - General Internal Medicine 02/23/23 documented as of this encounter
--- OUTSIDE RECORDS SUMMARY | 2023-07-06 08:34 | XMS_ITS | Encounter Summary ---
Author Name Unknown Organization [facility] Address [address] [place] [address] Care Team Providers Care Account Service Representative Name Role Phone Elsewhere, Pcp Primary Care Provider Unavailabl e Encounter Details Date Type Department Care Team (Late st Contact Info) Description 02/09/2010 Historical Ophthalmology RST OPH Raul Joy O.D. [address] [place] [address] Social History Tobacco Use Types Packs/Day Years Used Date Smoking Tobacco: Never Assessed Sex and Gender Information Value Date Recorded Sex Assigned at Male 04/08/2018 12:55 PM CDT Gender Identity Male 04/08/2018 12:55 PM CDT Sexual Orientation Straight 04/08/2018 12 :55 PM CDT documented as of this encounter Progress Notes * Raul Joy O.D. - 02/09/2010 9:34 AM CDT Eye General CHIEF COMPLAINT blurred vision, floaters HISTORY OF PRESENT ILLNESS Blurred vision; both eyes; x 6 months; intermittently; symptoms occur when driving, and when playing golf and following the golf ball. More sensitivity to bright sun light and oncoming head lights with night time driving. No noted vision changes when reading. Using over the counter readers when at the computer. Occasional floaters in both eyes. Denies eye pain, light flashes or diplopia. IMPRESSION / REPORT / PLAN #1 Cataract, both eyes, visually significant. Plan: obtain consult with cataract surgeon. DIAGNOSIS #1 Cataract, both eyes, visually significant. CDM Reports - EYEGEN Id: [id number] Status: Fnl documented in this encounter Plan of Treatment Upcoming Encounters Date Type Department Care Team (Late st Contact Info) Description 07/13/2023 1:00 PM DOOR TENDER Virtual Visit Division of Nephrology and Hypertension in [place], [place] [address] [place] [address] Antelmo Reese M.D. [address] [place] [address] documented as of this encounter Visit Diagnoses Not on filedocumented in this encounter Additional Health Concerns Infection Onset Date Last Indicated Resolved Time COVID19 Pending 02/23/2023 02/23/2023 02/23/2023 1 2:59 PM CDT documented as of this encounter Care Teams Account Service Representative Relationship Specialty Start Date End Date Elsewhere, Pcp PCP - General Internal Medicine 02/23/23 documented as of this encounter
--- OUTSIDE RECORDS SUMMARY | 2023-07-06 08:34 | XMS_ITS | Encounter Summary ---
Author Name Unknown Organization [facility] Address [address] [place] [address] Care Team Providers Care Trial Lawyer Name Role Phone Elsewhere, Pcp Primary Care Provider Unavailabl e Encounter Details Date Type Department Care Team (Late st Contact Info) Description 02/21/2010 Historical Ophthalmology RST OPH Avelino Valdes M.D. [address] [place] [phone] Social History Tobacco Use Types Packs/Day Years Used Date Smoking Tobacco: Never Assessed Sex and Gender Information Value Date Recorded Sex Assigned at Male 04/08/2018 12:55 PM CDT Gender Identity Male 04/08/2018 12:55 PM CDT Sexual Orientation Straight 04/08/2018 12 :55 PM CDT documented as of this encounter Progress Notes * Avelino Valdes M.D. - 02/21/2010 7:34 AM CDT Eye General CHIEF COMPLAINT Cataract HISTORY OF PRESENT ILLNESS Decreased vision; both eyes; x 1 year; no eye pain; difficulty with sun, headlights; difficulty with finding golf ball. 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 RBA LEFT cataract surgery disucssed, pt wishes to proceed. get iols target plano DIAGNOSIS #1 histyory of occipital cva with homonymous cva #2 cataracts CDM Reports - EYEGEN Id: [id number] Status: Fnl documented in this encounter Plan of Treatment Upcoming Encounters Date Type Department Care Team (Late st Contact Info) Description 07/13/2023 1:00 PM CAN TECHNICIAN Virtual Visit Division of Nephrology and Hypertension in [place], [place] [address] [place] [address] Antelmo Reese M.D. [address] [place] [address] documented as of this encounter Visit Diagnoses Not on filedocumented in this encounter Additional Health Concerns Infection Onset Date Last Indicated Resolved Time COVID19 Pending 02/23/2023 02/23/2023 02/23/2023 1 2:59 PM CDT documented as of this encounter Care Teams Trial Lawyer Relationship Specialty Start Date End Date Elsewhere, Pcp PCP - General Internal Medicine 02/23/23 documented as of this encounter
--- OUTSIDE RECORDS SUMMARY | 2023-07-06 08:34 | XMS_ITS | Encounter Summary ---
Author Name Unknown Organization [facility] Address [address] [place] [address] Care Team Providers Care Circus Supervisor Name Role Phone Elsewhere, Pcp Primary Care Provider Unavailabl e Encounter Details Date Type Department Care Team (Late st Contact Info) Description 03/02/2009 Historical Ophthalmology RST OPH Nestor Joyce M.D. Social History Tobacco Use Types Packs/Day Years Used Date Smoking Tobacco: Never Assessed Sex and Gender Information Value Date Recorded Sex Assigned at Male 04/08/2018 12:55 PM CDT Gender Identity Male 04/08/2018 12:55 PM CDT Sexual Orientation Straight 04/08/2018 12 :55 PM CDT documented as of this encounter Progress Notes * Nestor Joyce M.D. - 03/02/2009 9:39 AM [...] to as he wears bifocal lens. Current glasses prescription about two years old. Patient wants to know if he would be a candidate for eye surgery where I don't have to wear glasses. The patient describes floaters in both eyes which is occasional; no recent change. IMPRESSION / REPORT / PLAN Management requested by: Antelmo Reese [phone] #1 Early posteriorl subcapsular cataracts #2 Hyperopia, presbyopia Prescription for correction as above, patient?s option to fill. He is not good candidate for laser; cataracts not bad enough yet; see 1 yr DIAGNOSIS #1 Early posteriorl subcapsular cataracts #2 Hyperopia, presbyopia CDM Reports - EYEGEN Id: [id number] Status: Fnl documented in this encounter Plan of Treatment Upcoming Encounters Date Type Department Care Team (Late st Contact Info) Description 07/13/2023 1:00 PM COTTONSEED MEAT PRESSER Virtual Visit Division of Nephrology and Hypertension in [place], [place] [address] [place] [address] Antelmo Reese M.D. [address] [place] [address] documented as of this encounter Visit Diagnoses Not on filedocumented in this encounter Additional Health Concerns Infection Onset Date Last Indicated Resolved Time COVID19 Pending 02/23/2023 02/23/2023 02/23/2023 1 2:59 PM CDT documented as of this encounter Care Teams Circus Supervisor Relationship Specialty Start Date End Date Elsewhere, Pcp PCP - General Internal Medicine 02/23/23 documented as of this encounter
--- OUTSIDE RECORDS SUMMARY | 2023-07-06 08:34 | XMS_ITS | Encounter Summary ---
Author Name Unknown Organization [facility] Address [address] [place] [address] Care Team Providers Care Cisco Network Engineer Name Role Phone Elsewhere, Pcp Primary Care Provider Unavailabl e Encounter Details Date Type Department Care Team (Late st Contact Info) Description 02/21/2010 Historical Ophthalmology RST OPH Libby Gonzalez [address] [place] [phone] Social History Tobacco Use Types Packs/Day Years Used Date Smoking Tobacco: Never Assessed Sex and Gender Information Value Date Recorded Sex Assigned at Male 04/08/2018 12:55 PM CDT Gender Identity Male 04/08/2018 12:55 PM CDT Sexual Orientation Straight 04/08/2018 12 :55 PM CDT documented as of this encounter Progress Notes * Libby Gonzalez - 02/21/2010 8:04 AM CDT Eye Subsequent Visit HISTORY OF PRESENT ILLNESS Electronic Listing Cataract surgery CDM Reports - EYESV Id: [id number] Status: Fnl documented in this encounter Plan of Treatment Upcoming Encounters Date Type Department Care Team (Late st Contact Info) Description 07/13/2023 1:00 PM LAUNDRY ASSISTANT Virtual Visit Division of Nephrology and Hypertension in [place], [place] [address] [place] [phone] Antelmo Reese M.D. [address] [place] [phone] documented as of this encounter Visit Diagnoses Not on filedocumented in this encounter Additional Health Concerns Infection Onset Date Last Indicated Resolved Time COVID19 Pending 02/23/2023 02/23/2023 02/23/2023 1 2:59 PM CDT documented as of this encounter Care Teams Cisco Network Engineer Relationship Specialty Start Date End Date Elsewhere, Pcp PCP - General Internal Medicine 02/23/23 documented as of this encounter
== END 2023-07-04 10:01 | disposition home or self-care (01) ==
LOC: NFLDREF 07-06 08:29
PROVIDERS: PCP Internal Medicine; Referring Provider Internal Medicine; Visit Provider Internal Medicine
DX: N39.0 Urinary tract infection, site not specified (principal); R56.9 Unspecified convulsions; R41.89 Other symptoms and signs involving cognitive functions and awareness; G20.A1 Parkinson's disease without dyskinesia, without mention of fluctuations; I10 Essential (primary) hypertension
CPT/HCPCS: 87086; 87186

== ENCOUNTER 2023-08-07 13:09 | Outpatient (CLI) | payer MEDICARE, OTHER, SELFPAY ==
--- OUTSIDE RECORDS SUMMARY | 2023-08-07 13:16 | XMS_ITS | Clinical Summary ---
Author Name Unknown Organization [facility] Address [address] [place] [address] Care Team Providers Care Acid Patroller Name Role Phone Elsewhere, Pcp Primary Care Provider Unavailabl e Source Comments Patient records contain information from all sites at [facility]. For routine questions regarding patient records, call [phone] during business hours, M-F 8:00 AM - 5:00 PM Central Time. Record requests for emergency care only can be directed to [phone] at any time.[facility] Allergies No known active allergies Medications [...] daily. 0 Active amLODIPine (NORVASC) 2.5 mg tabletIndications:H ypertension Personal History TAKE ONE TABLET BY MOUTH ONE TIME DAILY 90 tablet 3 02/08/2022 Active Additional Information Patient taking differently: Patient taking half of 2.5, Reported on 07/13/2022 losartan-hydroCHLOR Othiazide (HYZAAR) 100-25 mg per tabletIndications:H ypertension Personal History Take 1 tablet by mouth every morning. 100 tablet 3 04/29/2022 Active carvediloL (COREG) 12.5 mg tabletIndications:H ypertension Personal History Take 1 tablet (12.5 mg total) by mouth 2 (two) times a day with meals. 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 max 3 tablets/15 minutes. 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 90 tablet 2 01/23/2023 Active traMADoL (ULTRAM) 50 mg tabletIndications:C hronic Pain/Nonacute Pain Take 1 tablet (50 mg total) by mouth 3 (three) times a day Indications: Chronic Pain/Nonacute Pain. 270 tablet 0 02/13/2023 Active tamsulosin (FLOMAX) 0.4 mg 24 hr capsuleIndications: Benign Prostatic Hyperplasia Without Obstruction Take 1 capsule (0.4 mg total) by mouth daily. 90 capsule 3 06/27/2023 Active Hospital, Clinic, or Other Facility Administered Medication [...] Encounters Date Type Department Care Team Description 07/13/2023 1:00 PM ACCESS ASSOC Virtual Visit Division of Nephrology and Hypertension in [place], [place] [address] [place] [address] Antelmo Reese M.D. Benign Prostatic Hyperplasia Without Obstruction (Primary Dx) 07/05/2023 11:15 AM ACCESS ASSOC Virtual Visit Division of Nephrology and Hypertension in [place], [place] [address] [place] [address] Antelmo Reese M.D. Benign Prostatic Hyperplasia Without Obstruction (Primary Dx) 06/27/2023 2:45 PM ACCESS ASSOC Virtual Visit Division of Nephrology and Hypertension in [place], [place] [address] [place] [address] Antelmo Reese M.D. Benign Prostatic Hyperplasia Without Obstruction 06/21/2023 Clinical Communication Division of Nephrology and Hypertension in [place], [place] [address] [place] [address] Antelmo Reese M.D. Recently hospitalized 05/18/2023 Clinical Communication Division of Nephrology and Hypertension in [place], [place] [address] [place] [address] Ange Leonard, R.N. three month chronic opioid follow up from Last 3 Months Immunizations Name Administration Dates Next Due HZV (ZOSTAVAX) 03/02/2009 Influenza (IM) Preservative Free 03/15/2009 Influenza Split 03/25/2008,03/25/2007 PCV13 04/12/2015 PPSV23(Discontinued) 03/25/2006 Td, (Adult) Unspecified 03/25/2009,06/25/2000, Tdap 04/11/2012 [...] often do you attend chur ch or taoist services? Never 05/22/2022 Do you belong to [...] Answer Date Recorded PHQ-2 Score 0 01/25/2023 [facility] - [...] 01/11/2023 1:46 PM CDT Plan of Treatment Health Maintenance Due Date [...] Cologuard Discontinued Medical Devices Implanted Type Area Burner Hand Device Identifier Shelf Expiration Date Model / Serial / Lot Depuy Stem Femoral Corail Kla12 - Trevizo [id number] Implanted:Qty: 1 on 09/09/2013 Hip Implant Left: Other/Legacy - See Implant Description [employer] Description:Device Manufactu rer - [employer]. Body Location - Left. Device Status Text - HIP [id number]. Lens 6.0x20.5 [id number] - Trevizo [id number] Implanted:Qty: 1 on 03/25/2010 Ocular Lens Left: Other/Legacy - See Implant Description [employer] Description:Device Manufactu rer - [employer]. Body Location - Left. Device Status Text - [id number]. Lens 6.0x21.0 [id number] - Trevizo [id number] Implanted:Qty: 1 on 03/31/2011 Ocular Lens Right: Other/Legacy - See Implant Description [employer] Description:Device Manufactu rer - [employer]. Body Location - Right. Device Status Text - [id number]. Advance Directives For more information, please contact: [phone] Documents on File Type Date Recorded Patient Perfect Binder Feeder Offbearer Expl anation Advance Directives 03/17/2015 12:00 AM Leg acy document. See document viewer. Advance Directives 06/19/2006 12:00 AM Nasreen le document. See document viewer. Advance Directives 12/13/2004 12:00 AM Leg acy document. See document viewer. Care Teams Acid Patroller Relationship Specialty Start Date End Date Elsewhere, Pcp PCP - General Internal Medicine 02/23/23
--- OUTSIDE RECORDS SUMMARY | 2023-08-07 13:17 | XMS_ITS ---
Author Name Unknown Organization [facility] Address [address] [place] [address] Care Team Providers Care Assistant Hall Director Name Role Phone Unavailable Unavailable Unavailable Surgery Details Not on file Complications Check Surgery Details section. Procedure Estimated Blood Loss Check Surgery Details section. Procedure Findings Check Surgery Details section. Procedure Specimens Taken Check Surgery Details section.
--- OUTSIDE RECORDS SUMMARY | 2023-08-07 13:17 | XMS_ITS | Referral Summary ---
Author Name Unknown Organization [facility] Address [address] [place] [address] Care Team Providers Care Candy Separator Hard Name Role Phone Elsewhere, Pcp Primary Care Provider Unavailabl e Source Comments Patient records contain information from all sites at [facility]. For routine questions regarding patient records, call [phone] during business hours, M-F 8:00 AM - 5:00 PM Central Time. Record requests for emergency care only can be directed to [phone] at any time.[facility] Encounters Date Type Department Care Team Description 07/13/2023 1:00 PM TROUBLE LINEMAN Virtual Visit Division of Nephrology and Hypertension in [place], [place] [address] [place] [phone] Antelmo Reese M.D. Benign Prostatic Hyperplasia Without Obstruction (Primary Dx) 07/05/2023 11:15 AM TROUBLE LINEMAN Virtual Visit Division of Nephrology and Hypertension in [place], [place] [address] [place] [phone] Antelmo Reese M.D. Benign Prostatic Hyperplasia Without Obstruction (Primary Dx) 06/27/2023 2:45 PM TROUBLE LINEMAN Virtual Visit Division of Nephrology and Hypertension in [place], [place] [address] [place] [phone] Antelmo Reese M.D. Benign Prostatic Hyperplasia Without Obstruction 06/21/2023 Clinical Communication Division of Nephrology and Hypertension in [place], [place] [address] [place] [phone] Antelmo Reese M.D. Recently hospitalized 05/18/2023 Clinical Communication Division of Nephrology and Hypertension in [place], [place] [address] [place] [address] Ange Leonard R.N. three month chronic opioid follow up from Last 3 Months Allergies No known [...] Bilateral 03/12/2019 Hypertension Personal History 04/18/2005 01/27/2022 Immunizations Name [...] often do you attend chur ch or denominational services? Never 05/22/2022 Do you belong to any clubs o r organizations such as quaker groups, unions, fraternal or athletic groups, [...] Date Recorded PHQ-2 Score 0 01/25/2023 [facility]at [facility] - Occupational [...] 01/11/2023 1:46 PM CDT Plan of Treatment Not on file Medical Devices Implanted Type Area Shipyard Supervisor Device Identifier Shelf Expiration Date Model / Serial / Lot Depuy Stem Femoral Corail Kla12 - Trevizo [id number] Implanted:Qty: 1 on 09/09/2013 Hip Implant Left: Other/Legacy - See Implant Description [employer] Description:Device Manufactu rer - [employer]. Body Location - Left. Device Status Text - HIP [id number]. Lens 6.0x20.5 [id number] - Trevizo [id number] Implanted:Qty: 1 on 03/25/2010 Ocular Lens Left: Other/Legacy - See Implant Description [employer] Description:Device Manufactu rer - [employer]. Body Location - Left. Device Status Text - [id number]. Lens 6.0x21.0 [id number] - Trevizo [id number] Implanted:Qty: 1 on 03/31/2011 Ocular Lens Right: Other/Legacy - See Implant Description [employer] Description:Device Manufactu rer - [employer]. Body Location - Right. Device Status Text - [id number]. Advance Directives For more information, please contact: [phone] Documents on File Type Date Recorded Patient Director Of Operations Home Health Expl anation Advance Directives 03/17/2015 12:00 AM Leg acy document. See document viewer. Advance Directives 06/19/2006 12:00 AM Nasreen le document. See document viewer. Advance Directives 12/13/2004 12:00 AM Leg acy document. See document viewer. Care Teams Candy Separator Hard Relationship Specialty Start Date End Date Elsewhere, Pcp PCP - General Internal Medicine 02/23/23
--- OUTSIDE RECORDS SUMMARY | 2023-08-07 13:17 | XMS_ITS | Encounter Summary ---
Author Name Unknown Organization [facility] Address [address] [place] [address] Care Team Providers Care Invasive Manager Name Role Phone Elsewhere, Pcp Primary Care Provider Unavailabl e Encounter Details Date Type Department Care Team (Late st Contact Info) Description 03/16/2023 Orders Only Division of Nephrology and Hypertension in [place], [place] [address] [place] [phone] Antelmo Reese M.D. [address] [place] [address] Social History Tobacco Use Types Packs/Day Years [...] Answer Date Recorded PHQ-2 Score 0 01/25/2023 [facility] - Occupational Stress [...] this encounter Plan of Treatment Not on file documented as of this encounter Visit Diagnoses Not on filedocumented in this encounter Additional Health Concerns Assessment Noted Time PHQ-9 Depression Total Score: 0 01/26/20 23 2:00 PM CDT documented as of this encounter Care Teams Invasive Manager Relationship Specialty Start Date End Date Elsewhere, Pcp PCP - General Internal Medicine 02/23/23 documented as of this encounter
--- OUTSIDE RECORDS SUMMARY | 2023-08-07 13:17 | XMS_ITS | Encounter Summary ---
Author Name Unknown Organization [facility] Address [address] [place] [address] Care Team Providers Care Office Inspector Name Role Phone Elsewhere, Pcp Primary Care Provider Unavailabl e Encounter Details Date Type Department Care Team (Late st Contact Info) Description 03/07/2023 Clinical Communication Division of Nephrology and Hypertension in [place], [place] [address] [place] [phone] Antelmo Reese M.D. [address] [place] [phone] Social History Tobacco Use Types Packs/Day Years [...] often do you attend chur ch or congregational services? Never 05/22/2022 Do you belong to [...] Answer Date Recorded PHQ-2 Score 0 01/25/2023 [facility] ional [facility] - Occupational [...] slept in a long term (including now)? No 05/22/2022 Depression Answer Date [...] documented as of this encounter Care Teams Office Inspector Relationship Specialty Start Date End Date Elsewhere, Pcp PCP - General Internal Medicine 02/23/23 documented as of this encounter
--- OUTSIDE RECORDS SUMMARY | 2023-08-07 13:17 | XMS_ITS | Encounter Summary ---
Author Name Unknown Organization [facility] Address [address] [place] [address] Care Team Providers Care Land Management Supervisor Name Role Phone Elsewhere, Pcp Primary Care Provider Unavailabl e Reason for Visit * Reason Onset Date Comments Recently hospitalized 06/21/2023 Encounter Details Date Type Department Care Team (Latest Contact Info) Description 06/21/2023 Clinical Communication Division of Nephrology and Hypertension in [place], [place] [address] [place] [phone] Antelmo Reese M.D. [address] [place] [phone] Recently hospitalized Social History Tobacco Use Types [...] any clubs o r organizations such as hoahaoism groups, unions, fraternal or athletic groups, [...] Answer Date Recorded PHQ-2 Score 0 01/25/2023 [facility] of Occupat ional Health [...] the video visit as well. Thank you. OR MERCHANDISER documented in this encounter Plan of Treatment Not on file documented as of this encounter Visit Diagnoses Not on filedocumented in this encounter Additional Health Concerns Assessment Noted Time PHQ-9 Depression Total Score: 0 01/26/20 2:00 PM CDT documented as of this encounter Care Teams Land Management Supervisor Relationship Specialty Start Date End Date Elsewhere, Pcp PCP - General Internal Medicine 02/23/23 documented as of this encounter
--- OUTSIDE RECORDS SUMMARY | 2023-08-07 13:17 | XMS_ITS | Encounter Summary ---
Author Name Unknown Organization [facility] Address [address] [place] [address] Care Team Providers Care Retort Cooler Name Role Phone Elsewhere, Pcp Primary Care Provider Unavailabl e Reason for Referral * Outpatient (Routine) - Closed Specialty Diagnoses / Procedures Referred By Contac t Referred To Contact Nephrology and Hypertension Antelmo Reese M.D. [address] [place] [phone] [facility] Referral ID Status Reason Start Date Expiration Date Visits Re quested Visits Authorized [id number] Closed 04/14/2023 04/13/2026 1 1 Scheduling Instructions No tests. Encounter Details Date Type Department Care Team (Late st Contact Info) Description 04/14/2023 Orders Only Division of Nephrology and Hypertension in [place], [place] [address] [place] [phone] Antelmo Reese M.D. [address] [place] [phone] Social History Tobacco Use Types Packs/Day Years [...] How often do you attend chur or christian services? Never 05/22/2022 Do you belong to any clubs o r organizations such as catholic groups, unions, fraternal or athletic groups, [...] Answer Date Recorded PHQ-2 Score 0 01/25/2023 [facility] of Occupat ional Health - Occupational Stress [...] documented as of this encounter Care Teams Retort Cooler Relationship Specialty Start Date End Date Elsewhere, Pcp PCP - General Internal Medicine 02/23/23 documented as of this encounter
--- OUTSIDE RECORDS SUMMARY | 2023-08-07 13:17 | XMS_ITS | Encounter Summary ---
Author Name Unknown Organization [facility] Address [address] [place] [address] Care Team Providers Care Ultrasound Technol Name Role Phone Elsewhere, Pcp Primary Care Provider Unavailabl e Reason for Referral * Outpatient (Routine) - Closed Specialty Diagnoses / Procedures Referred By Ky quiroz Referred To Contact Nephrology and Hypertension Antelmo Reese M.D. [address] [place] [phone] [facility] Referral ID Status Reason Start Date Expiration Date Visits Re quested Visits Authorized [id number] Closed 07/05/2023 07/04/2026 1 1 Scheduling Instructions Phone visit at 1 PM PING INSPECTOR Reason for Visit * Outpatient (Routine) - Closed Specialty Diagnoses / Procedures Referred By Ky quiroz Referred To Contact Nephrology and Hypertension Antelmo Reese M.D. 200 [place] [phone] [facility] Referral ID Status Reason Start Date Expiration Date Visits Re quested Visits Authorized [id number] Closed 06/27/2023 06/26/2026 1 1 Encounter Details Date Type Department Care Team (Latest Contact Info) Description 07/05/2023 11:15 AM SHIPPING INSPECTOR Virtual Visit Division of Nephrology and Hypertension in [place], [place] [address] [place] [phone] Antelmo Reese M.D. [address] [place] [phone] Benign Prostatic Hyperplasia Without Obstruction (Primary Dx) [...] Answer Date Recorded PHQ-2 Score 0 01/25/2023 [facility] of Occupat ional Health - [...] above with the patient. Antelmo Reese M.D. PING INSPECTOR documented in this encounter Plan of [...] documented as of this encounter Care Teams Ultrasound Technol Relationship Specialty Start Date End Date Elsewhere, Pcp PCP - General Internal Medicine 02/23/23 documented as of this encounter
--- OUTSIDE RECORDS SUMMARY | 2023-08-07 13:17 | XMS_ITS | Encounter Summary ---
Author Name Unknown Organization [facility] Address [address] [place] [address] Care Team Providers Care Child Neurologist Name Role Phone Elsewhere, Pcp Primary Care Provider Unavailabl e Reason for Referral * Outpatient (Routine) - Closed Specialty Diagnoses / Procedures Referred By Ky quiroz Referred To Contact Nephrology and Hypertension Antelmo Reese M.D. [address] [place] [phone] [facility] Referral ID Status Reason Start Date Expiration Date Visits Re quested Visits Authorized [id number] Closed 06/27/2023 06/26/2026 1 1 Scheduling Instructions Jul 04, , or R BRAKE OPERATOR Reason for Visit * Outpatient (Routine) - Closed Specialty Diagnoses / Procedures Referred By Ky quiroz Referred To Contact Nephrology and Hypertension Antelmo Reese M.D. [address] [place] [phone] [facility] Referral ID Status Reason Start Date Expiration Date Visits Re quested Visits Authorized [id number] Closed 04/14/2023 04/13/2026 1 1 Encounter Details Date Type Department Care Team (Latest Contact Info) Description 06/27/2023 2:45 PM POWER BRAKE OPERATOR Virtual Visit Division of Nephrology and Hypertension in [place], [place] [address] [place] [phone] Antelmo Reese M.D. [address] [place] [phone] Benign Prostatic Hyperplasia Without Obstruction Social History [...] Answer Date Recorded PHQ-2 Score 0 01/25/2023 [facility] of Occupat ional [facility] - Occupational Stress Questionnaire Answer Date [...] or slept in a custodial (including now)? No 05/22/2022 Depression Answer Date [...] above with the patient. Antelmo Reese M.D. R BRAKE OPERATOR documented in this encounter Plan of [...] documented as of this encounter Care Teams Child Neurologist Relationship Specialty Start Date End Date Elsewhere, Pcp PCP - General Internal Medicine 02/23/23 documented as of this encounter
--- OUTSIDE RECORDS SUMMARY | 2023-08-07 13:17 | XMS_ITS | Encounter Summary ---
Author Name Unknown Organization [facility] Address [address] [place] [address] Care Team Providers Care Weather Algorithm Scientist Name Role Phone Elsewhere, Pcp Primary Care Provider Unavailabl e Reason for Visit * Reason Onset Date Comments Catheter Prescription 03/05/2023 Encounter Details Date Type Department Care Team (Latest Contact Info) Description 03/05/2023 Clinical Communication Department of Urology in [place], [place] [address] [place] [phone] Maco Mclean, MILITARY PILOT, C.N.P. [address] [place] [phone] Catheter Prescription Social History Tobacco Use Types [...] often do you attend chur ch or orthodoxy services? Never 05/22/2022 Do you belong to [...] Date Recorded PHQ-2 Score 0 01/25/2023 [facility] of Occupat ional Health [...] or slept in a fci (including now)? No 05/22/2022 Depression Answer Date [...] documented as of this encounter Care Teams Weather Algorithm Scientist Relationship Specialty Start Date End Date Elsewhere, Pcp PCP - General Internal Medicine 02/23/23 documented as of this encounter
--- OUTSIDE RECORDS SUMMARY | 2023-08-07 13:17 | XMS_ITS | Encounter Summary ---
Author Name Unknown Organization [facility] Address [address] [place] [address] Care Team Providers Care Roadside Mechanic Name Role Phone Elsewhere, Pcp Primary Care Provider Unavailabl e Reason for Referral * Outpatient (Routine) - Authorized Specialty Diagnoses / Procedures Referred By Contac t Referred To Contact Neurology Diagnoses Stroke (HCC) Antelmo Reese M.D. [address] [place] [phone] [facility] Referral ID Status Reason Start Date Expiration Date V isits Requested Visits Authorized [id number] Authorized 03/14/2023 03/13/2024 1 1 Encounter Details Date Type Department Care Team (Late st Contact Info) Description 03/14/2023 Orders Only Division of Nephrology and Hypertension in [place], [place] 200 [place] [phone] Antelmo Reese M.D. [address] [place] [phone] Stroke (HCC) (Primary Dx) Social History Tobacco [...] How often do you attend chur or baptist services? Never 05/22/2022 Do you belong to [...] Answer Date Recorded PHQ-2 Score 0 01/25/2023 [facility] of Occupat ional Health - Occupational Stress [...] documented as of this encounter Care Teams Roadside Mechanic Relationship Specialty Start Date End Date Elsewhere, Pcp PCP - General Internal Medicine 02/23/23 documented as of this encounter
--- OUTSIDE RECORDS SUMMARY | 2023-08-07 13:17 | XMS_ITS | Encounter Summary ---
Author Name Unknown Organization [facility] Address [address] [place] [address] Care Team Providers Care Platform Operations Director Name Role Phone Elsewhere, Pcp Primary Care Provider Unavailabl e Reason for Visit * Reason Onset Date Comments three month chronic opioid follow up 05/18/2023 Encounter Details Date Type Department Care Team (Latest Contact Info) Description 05/18/2023 Clinical Communication Division of Nephrology and Hypertension in [place], [place] [address] [place] [phone] Ange Leonard, RChristianNChristian [address] [place] [phone] three month chronic opioid follow up Social [...] Answer Date Recorded PHQ-2 Score 0 01/25/2023 [facility] - Occupational Stress Questionnaire [...] or slept in a fdc (including now)? No 05/22/2022 Depression Answer Date [...] not interfere; 10 = completely interferes)? 0 ETING DEVELOPMENT REPRESENTATIVE documented in this encounter Plan of Treatment Not on file documented as of this encounter Visit Diagnoses Not on filedocumented in this encounter Additional Health Concerns Assessment Noted Time PHQ-9 Depression Total Score: 0 01/26/20 2:00 PM CDT documented as of this encounter Care Teams Platform Operations Director Relationship Specialty Start Date End Date Elsewhere, Pcp PCP - General Internal Medicine 02/23/23 documented as of this encounter
--- OUTSIDE RECORDS SUMMARY | 2023-08-07 13:17 | XMS_ITS | Encounter Summary ---
Author Name Unknown Organization [facility] Address [address] [place] [address] Care Team Providers Care Community Affairs Director Name Role Phone Elsewhere, Pcp Primary Care Provider Unavailabl e Reason for Visit * Outpatient (Routine) - Closed Specialty Diagnoses / Procedures Referred By Contac t Referred To Contact Nephrology and Hypertension Antelmo Reese M.D. [address] [place] [phone] [facility] Referral ID Status Reason Start Date Expiration Date Visits Re quested Visits Authorized [id number] Closed 07/05/2023 07/04/2026 1 1 Encounter Details Date Type Department Care Team (Latest Contact Info) Description 07/13/2023 1:00 PM CEMETERY MANAGER Virtual Visit Division of Nephrology and Hypertension in [place], [place] [address] [place] [phone] Antelmo Reese M.D. [address] [place] [phone] Benign Prostatic Hyperplasia Without Obstruction (Primary Dx) [...] Answer Date Recorded PHQ-2 Score 0 01/25/2023 [facility] of Occupat ional Health - Occupational Stress [...] slept in a care home (including now)? No 05/22/2022 Depression Answer [...] Progress Notes * Antelmo Reese M.D. - 07/13/2023 1:00 PM CST PHONE VISIT SUBJECTIVE REASON FOR VISIT Mr. Merrill returns for test results and recommendations. INTERIM HISTORY See my note from June 27 and . Since starting the tamsulosin he has noted fewer urinary symptoms. Overall he is well. OBJECTIVE LAB RESULTS ASSESSMENT / PLAN IMPRESSION 1. Urinary frequency and nocturia with BPH. PLAN AND RECOMMENDATIONS Continue the tamsulosin 1 a day. I reviewed the above with the patient. Antelmo Reese M.D. TERY MANAGER documented in this encounter Plan of Treatment Not on file documented as of this encounter Visit Diagnoses Diagnosis Benign Prostatic Hyperplasia Without Obstruction- Primary documented in this encounter Additional Health Concerns Assessment Noted Time PHQ-9 Depression Total Score: 0 01/26/20 2:00 PM CDT documented as of this encounter Care Teams Community Affairs Director Relationship Specialty Start Date End Date Elsewhere, Pcp PCP - General Internal Medicine 02/23/23 documented as of this encounter
--- OUTSIDE RECORDS SUMMARY | 2023-08-07 13:17 | XMS_ITS | Encounter Summary ---
Author Name Unknown Organization [facility] Address [address] [place] [address] Care Team Providers Care Retail Salesworker Name Role Phone Elsewhere, Pcp Primary Care Provider Unavailabl e Encounter Details Date Type Department Care Team (Late st Contact Info) Description 04/14/2023 Clinical Communication Division of Nephrology and Hypertension in [place], [place] [address] [place] [phone] Antelmo Reese M.D. [address] [place] [phone] Social History Tobacco Use Types Packs/Day Years [...] often do you attend chur ch or tenriism services? Never 05/22/2022 Do you belong to any clubs o r organizations such as shinto groups, unions, fraternal or athletic groups, [...] Answer Date Recorded PHQ-2 Score 0 01/25/2023 [facility] of Occupat ional Health [...] documented as of this encounter Care Teams Retail Salesworker Relationship Specialty Start Date End Date Elsewhere, Pcp PCP - General Internal Medicine 02/23/23 documented as of this encounter
--- OUTSIDE RECORDS SUMMARY | 2023-08-07 13:18 | XMS_ITS | Encounter Summary ---
Author Name Unknown Organization [facility] Address [address] [place] [address] Care Team Providers Care Business Systems Manager Name Role Phone Elsewhere, Pcp Primary Care Provider Unavailabl e Reason for Visit * Reason Onset Date Comments Fatigue 02/23/2023 Encounter Details Date Type Department Care Team (Late st Contact Info) Description 02/23/2023 Clinical Communication Division of Nephrology and Hypertension in [place], [place] [address] [place] [phone] Ange Leonard RChristianN. [address] [place] [phone] Fatigue Social History Tobacco Use Types Packs/Day [...] Answer Date Recorded PHQ-2 Score 0 01/25/2023 [facility] - Occupational Stress Questionnaire Answer Date Recorded [...] department to be evaluated. Their daughter and [id number] take them. Disposition/Recommendation: recommended to report to [...] documented as of this encounter Care Teams Business Systems Manager Relationship Specialty Start Date End Date Elsewhere, Pcp PCP - General Internal Medicine 02/23/23 documented as of this encounter
--- OUTSIDE RECORDS SUMMARY | 2023-08-07 13:18 | XMS_ITS | Encounter Summary ---
Author Name Unknown Organization [facility] Address [address] [place] [address] Care Team Providers Care Spray Applicator Name Role Phone Elsewhere, Pcp Primary Care Provider Unavailabl e Reason for Visit * Reason Comments Altered Mental Status Encounter Details Date Type Department Care Team ([facility] st Contact Info) Description 02/23/2023 11:28 AM CDT - 02/23/2023 3:31 PM CDT [facility] Emergency Department [address] [place] [phone] Robin Barrera M.D. [address] [place] [phone] Avelino Willis Jr., M.D. [address] [place] [phone] Hypersomnia Drug Caused (HCC) (Primary Dx); Insomnia; [...] any clubs o r organizations such as confucianist groups, unions, fraternal or athletic groups, [...] on file 04/26 Overall Financial Resource Strain ([facility]) Answe r Date Recorded How hard is it for you to pa y for the very basics like food, housing, medical care, and heating? Not very hard 05/22/2022 PHQ-2 Answer Date Recorded PHQ-2 Score 0 01/25/2023 [facility] - Occupational Stress Questionnaire [...] be sent through Care Everywhere. * Insomnia (Yemeni) * How to Get the Healthy Sleep You Need (Yemeni) documented in this encounter Medications at Time [...] tablet 2 01/23/2023 traMADoL (ULTRAM) 50 mg tabletIndications:Manager Strategic Marketing katt Pain/Nonacute Pain Take 1 tablet (50 [...] normal limits Narrative: Specimen Information: Specimen ID: [id number] Specimen Type: Blood Specimen Collection Start Date: 02/23/2023 2:41 PM Specimen Received Date: 02/23/2023 2:47 PM Specimen ID: [id number] Specimen Type: Blood No orders to display Shailesh Momin MD Emergency Medicine PGY 1 [id number] CLINICAL IMPRESSION ED Course as of 02/23/23 [...] Robin Barrera M.D. 02/26/23 1342 * Robin Barrrea M.D. - 02/23/2023 12:18 PM CDT SUBJECTIVE [...] provided by: Patient, significant other and relative molder floor needed/used: no REVIEW OF SYSTEMS Constitutional: Negative [...] including history, physical exam, orders, and plan. Obinnaee with the note of the resident. I [...] M.D. 02/24/23 1627 Robin Barrera M.D. 02/26/23 1343 * Dominick Louis R.N. - 02/23/2023 11:46 [...] last few days. Dominick Louis R.N. 02/23/23 1154 documented in this encounter Plan of Treatment Not on file documented as of this encounter Procedures Procedure [...] 2h/6h, 5th Gen (02/23/2023 2:41 PM CDT) [facility] Troponin T, 2 hr, 5th gen 18(H) [...] PM CDT 02/23/2023 2:47 PM CDT Narrative [facility] - 02/23/2023 3:04 PM CDT Specimen Information: Specimen ID: [id number] Specimen Type: Blood Specimen Collection Start Date: 02/23/2023 ??2:41 PM Specimen Received Date: 02/23/2023 ??2:47 PM Specimen ID: [id number] Specimen Type: Blood Robin Barrera M.D. LAB BLOOD T KEVIN [facility] [address] [place] [address], [facility] [address] [place] [address] * (ABNORMAL) CBC with Differential, Blood (02/23/2023 12:31 PM CDT) Pathologist [facility] Hemoglobin 12.7(L) 13.2 - 16.6 g/dL 02/23/2023 [...] Robin Barrera M.D. LAB BLOOD A DD-ON [facility] [address] [place] [address], [facility] [address] [place] [address] [facility] 200 [place] [address] * (ABNORMAL) Troponin T, Baseline, 5th gen (02/23/2023 12:30 PM CDT) Troponin T, Baseline, 5th gen 19(H) <=15 ng/L 02/23/2023 12:56 PM CDT [facility] Blood (Blood, Venous) 02/23/2023 12:30 PM CDT 02/23/2023 12:37 PM CDT Robin Barrera M.D. LAB BLOOD T ROPONIN Performing Organization Address [facility]/ZIP Co de Phone Number [facility] [address] [place], [place] [address] 200 [place] [address] * S-TSH (Thyroid-Stimulating Hormone - Sensitive) (02/23/2023 12:30 PM CDT) TSH, Sensitive 1.3 0.3 - 4.2 mIU/L 02/23/2023 1:32 PM CDT DTL Blood (Blood, Venous) 02/23/2023 12:30 PM CDT 02/23/2023 12:58 PM CDT Robin Barrera M.D. LAB BLOOD A DD-ON [facility] [address] [place] [address], [facility] 200 [place] [address] * (ABNORMAL) Basic Metabolic Panel (02/23/2023 12:30 PM CDT) Pathologist [facility] Potassium, P 4.1 3.6 - 5.2 [...] Robin Barrera M.D. LAB BLOOD A DD-ON [facility] [address] [place] [address], [place] [facility] 200 [place] [address] * Influenza A/B, SARS CoV-2, PCR, Rapid Symptomatic (02/23/2023 12:25 PM CDT) Pathologist [facility] Influenza A, PCR, Rapid, V Negative Negative [...] at the following links: For Healthcare Providers: https://www.fda.gov/media/174985/download For Patients: https://www.fda.gov/media/071314/download Infl A/B, SARS CoV-2, PCR, Source Swab, Nasopharynx 02/23/2023 12:25 PM CDT [facility] Swab (Nasopharynx) 02/23/2023 12:25 PM CDT 02/23/2023 12:25 PM CDT Robin Barrera M.D. LAB [facility] - GENERAL ORDERABLES [facility] [place] [address], [facility] 200 [place] [address] * ECG 12 Lead (02/23/2023 12:15 PM CDT) Ventricular Rate ECG/Min 60 BPM MUSE VT Interval 194 ms MUSE QRSD Interval 98 ms MUSE QT Interval 448 ms MUSE QTC Interval 448 ms MUSE R [place] 36 degrees MUSE T Wave [place] 101 degrees MUSE 02/23/2023 12:1 5 PM [...] Lopez Robin Barrera M.D. ECG ORDERAB LES MUSE NA documented in this encounter Visit Diagnoses Diagnosis Hypersomnia Drug Caused (HCC)- Primary Insomnia Reaction Stress documented in this encounter Additional Health Concerns Infection Onset Date Last Indicated Resolved Time COVID19 Pending 02/23/2023 02/23/2023 02/23/2023 1 2:59 PM CDT Assessment Noted Time PHQ-9 Depression Total Score: 0 01/26/20 2:00 PM CDT documented as of this encounter Care Teams Spray Applicator Relationship Specialty Start Date End Date Elsewhere, Pcp PCP - General Internal Medicine 02/23/23 documented as of this encounter
--- OUTSIDE RECORDS SUMMARY | 2023-08-07 13:18 | XMS_ITS | Encounter Summary ---
Author Name Unknown Organization [facility] Address [address] [place] [address] Care Team Providers Care Personal Clothing Laundry Aide Name Role Phone Elsewhere, Pcp Primary Care Provider Unavailabl e Reason for Referral * Outpatient (Routine) - Authorized Specialty Diagnoses / Procedures Referred By Contac t Referred To Contact Diagnoses Benign Prostatic Hyperplasia Hypertrophy With Obstruction Incomplete Bladder Emptying Procedures URO Uroflow Maco Mclean APRN, C.N.P. [address] [place] [phone] [facility] Referral ID Status Reason Start Date Expiration Date V isits Requested Visits Authorized [id number] Authorized 03/05/2023 03/04/2024 1 1 * Outpatient (Routine) - Authorized Specialty Diagnoses / Procedures Referred By Contac t Referred To Contact Urology Maco Mclean APRN, C.N.P. [address] [place] [phone] [facility] Referral ID Status Reason Start Date Expiration Date V isits Requested Visits Authorized [id number] Authorized 03/05/2023 03/04/2026 1 1 Reason for Visit * Outpatient (Routine) - Closed Specialty Diagnoses / Procedures Referred By Contac t Referred To Contact Urology Maco Mclean APRN, C.N.P. [address] [place] [address] [facility] Referral ID Status Reason Start Date Expiration Date Visits Re quested Visits Authorized [id number] Closed 03/02/2022 03/01/2025 1 1 Encounter Details Date Type Department Care Team (Late st Contact Info) Description 03/05/2023 11:30 AM CDT Office Visit Department of Urology in [place], [place] [address] [place] [address] Maco Mclean APRN, C.N.P. [address] [place] [phone] Benign Prostatic Hyperplasia Hypertrophy With Obstruction (Primary [...] week 05/22/2022 How often do you attend [facility] or amish services? Never 05/22/2022 Do you belong to [...] Score 0 01/25/2023 [facility] - Occupational Stress Questionnaire Answer [...] documented as of this encounter Care Teams Personal Clothing Laundry Aide Relationship Specialty Start Date End Date Elsewhere, Pcp PCP - General Internal Medicine 02/23/23 documented as of this encounter
--- OUTSIDE RECORDS SUMMARY | 2023-08-07 13:18 | XMS_ITS | Encounter Summary ---
Author Name Unknown Organization [facility] Address [address] [place] [address] Care Team Providers Care Drier Name Role Phone Elsewhere, Pcp Primary Care Provider Unavailabl e Encounter Details Date Type Department Care Team (Latest Contact Info) Description 03/05/2023 9:00 AM CDT - 03/05/2023 11:59 PM CDT Hospital Encounter Department of Laboratory Medicine and Pathology, [facility] in [place], [place] [address] [place] [address] Maco Mclean, PRESS ASSISTANT AND FEEDER, C.N.P. [address] [place] [phone] Benign Prostatic Hyperplasia Hypertrophy With Obstruction Discharge [...] any clubs o r organizations such as scientology groups, unions, fraternal or athletic groups, [...] Answer Date Recorded PHQ-2 Score 0 01/25/2023 [facility]at ional Health [...] or slept in a usp (including now)? No 05/22/2022 Depression Answer Date [...] tablet 2 01/23/2023 traMADoL (ULTRAM) 50 mg tabletIndications:Cobol Mainframe Developer katt Pain/Nonacute Pain Take 1 tablet (50 [...] Maco Mclean APRN, C.N.P. LAB BLOOD ADD-ON [address] [address], [facility] [address] [address] documented in this encounter Visit Diagnoses Diagnosis Benign Prostatic Hyperplasia Hypertrophy With Obstruction documented in this encounter Additional Health Concerns Assessment Noted Time PHQ-9 Depression Total Score: 0 01/26/20 23 2:00 PM CDT documented as of this encounter Care Teams Drier Relationship Specialty Start Date End Date Elsewhere, Pcp PCP - General Internal Medicine 02/23/23 documented as of this encounter
--- OUTSIDE RECORDS SUMMARY | 2023-08-07 13:18 | XMS_ITS | Encounter Summary ---
Author Name Unknown Organization [facility] Address [address] [place] [address] Care Team Providers Care [employer] Driver Name Role Phone Unavailable Primary Care Provider Unavailabl e Reason for Visit * Reason Comments Med Refill Encounter Details Date Type Department Care Team (Late st Contact Info) Description 01/21/2023 Refill Division of Nephrology and Hypertension in [place], [place] [address] [place] [address] Antelmo Reese M.D. [address] [place] [address] Med Refill Social History Tobacco Use Types [...] often do you attend chur ch or mu-ism services? Never 05/22/2022 Do you belong to [...] Answer Date Recorded PHQ-2 Score 0 01/27/2022 [facility] - Occupational Stress Questionnaire Answer Date [...]
--- OUTSIDE RECORDS SUMMARY | 2023-08-07 13:18 | XMS_ITS | Encounter Summary ---
Author Name Unknown Organization [facility] Address [address] [place] [address] Care Team Providers Care Multi Line Claims Adjuster Name Role Phone Elsewhere, Pcp Primary Care Provider Unavailabl e Reason for Visit * Reason Comments Benign Prostatic Hypertrophy Uroflow * Outpatient (Routine) - Closed Specialty Diagnoses / Procedures Referred By Ky t Referred To Contact Diagnoses Benign Prostatic Hyperplasia Hypertrophy With Obstruction Procedures URO Uroflow Maco Mclean APRN, C.N.P. [address] [place] [phone] [facility] Referral ID Status Reason Start Date Expiration Date Visits Re quested Visits Authorized [id number] Closed 03/02/2022 03/02/2023 1 1 Encounter Details Date Type Department Care Team (Latest Contact Info) Description 03/05/2023 9:45 AM CDT Procedure visit Department of Urology in [place], [place] [address] [place] [phone] Maco Mclean APRN, C.N.P. [address] [place] [phone] Kierra Paris R.N. [address] [place] [phone] Benign Prostatic Hyperplasia Hypertrophy With Obstruction Social [...] How often do you attend chur or anabaptism services? Never 05/22/2022 Do you belong to any clubs o r organizations such as anabaptism groups, unions, fraternal or athletic groups, [...] Answer Date Recorded PHQ-2 Score 0 01/25/2023 [facility]at ional Health - Occupational [...] check by ultrasound. IMPRESSION/REPORT/PLAN Maco Mclean APRN, LINK ASSEMBLER, ordered the patient to have a complex [...] recommended. Maco Mclean APRN C.N.P. UROLOGY O RDERABLES documented in this encounter Visit Diagnoses Diagnosis Benign Prostatic Hyperplasia Hypertrophy With Obstruction documented in this encounter Additional Health Concerns Assessment Noted Time PHQ-9 Depression Total Score: 0 01/26/20 23 2:00 PM CDT documented as of this encounter Care Teams Multi Line Claims Adjuster Relationship Specialty Start Date End Date Elsewhere, Pcp PCP - General Internal Medicine 02/23/23 documented as of this encounter
--- OUTSIDE RECORDS SUMMARY | 2023-08-07 13:18 | XMS_ITS | Encounter Summary ---
Author Name Unknown Organization [facility] Address [address] [place] [address] Care Team Providers Care Apiarist Name Role Phone Unavailable Primary Care Provider Unavailabl e Reason for Referral * Outpatient (Routine) - Authorized Specialty Diagnoses / Procedures Referred By Contac t Referred To Contact Nephrology and Hypertension Antelmo Reese M.D. [address] [place] [phone] [facility] Referral ID Status Reason Start Date Expiration Date V isits Requested Visits Authorized [id number] Authorized 01/25/2023 01/24/2026 1 1 * Outpatient (Routine) - Authorized Specialty Diagnoses / Procedures Referred By Contac t Referred To Contact Nephrology and Hypertension Antelmo Reese M.D. 200 [place] [address] [facility] Referral ID Status Reason Start Date Expiration Date V isits Requested Visits Authorized [id number] Authorized 01/25/2023 01/24/2026 1 1 Reason for Visit * Reason Comments Opioid * Outpatient (Routine) - Closed Specialty Diagnoses / Procedures Referred By Contac t Referred To Contact Nephrology and Hypertension Diagnoses Pain Hip Bilateral Other Chronic Pain Antelmo Reese M.D. [address] [place] [phone] [facility] Referral ID Status Reason Start Date Expiration Date Visits Re quested Visits Authorized [id number] Closed 01/27/2022 01/27/2023 1 1 Encounter Details Date Type Department Care Team (Late st Contact Info) Description 01/25/2023 1:00 PM CDT Nurse Only Division of Nephrology and Hypertension in [place], [place] [address] [place] [phone] Antelmo Reese M.D. 200 [place] [phone] Emir Marcelino R.N. 200 [place] [phone] Opioid Social History Tobacco Use Types Packs/Day [...] any clubs o r organizations such as jain groups, unions, fraternal or athletic groups, [...] Answer Date Recorded PHQ-2 Score 0 01/25/2023 [facility]at [facility] - Occupational Stress Questionnaire Answer Date [...]
--- OUTSIDE RECORDS SUMMARY | 2023-08-07 13:18 | XMS_ITS | Encounter Summary ---
Author Name Unknown Organization [facility] Address [address] [place] [address] Care Team Providers Care Hand Cutter Name Role Phone Unavailable Primary Care Provider Unavailabl e Encounter Details Date Type Department Care Team (Latest Contact Info) Description 01/25/2023 9:27 AM CDT - 01/25/2023 11:59 PM CDT Hospital Encounter Department of Laboratory Medicine and Pathology, [facility] in [place], [place] [address] [place] [address] Antelmo Reese M.D. [address] [place] [phone] Pain Hip Bilateral; Other Chronic Pain Discharge [...] often do you attend chur ch or congregation services? Never 05/22/2022 Do you belong to any clubs o r organizations such as restorationism groups, unions, fraternal or athletic groups, or [...] Answer Date Recorded PHQ-2 Score 0 01/25/2023 [facility]at ional Health - Occupational [...] 3 02/08/2022 06/27/2023 traMADoL (ULTRAM) 50 mg tabletIndications:Manager Culture katt Pain/Nonacute Pain Take 1 tablet (50 [...] mg/dL 08/2022 3:28 PM CDT [facility] Specific [place] 1.011 01/26/20 3:28 PM CDT [facility] pH [...] 01/26/2023 5:09 AM CDT [facility] Comment:Tylenol 3 Ezvbwud-7-vdpb-glucuron ai Not Detected Cutoff: 100 ng/mL 01/26/2023 5:09 AM CDT [facility] Comment:Metabolite of codein e Morphine Not Detected Cutoff: 25 ng/mL 01/26/2023 5:09 AM CDT [facility] Comment: Patricia De La Cruz, MS Contin; Also a minor metabolite (10%) of codeine and can be seen in low concentrations (<2,000 ng/mL) with poppy seed ingestion. Ltjcvoau-3-jwml-glucuro nide Not Detected Cutoff: 100 ng/mL 01/26/2023 5:09 AM CDT [facility] Comment:Metabolite of morphi ne 6-monoacetylmorphine Not Detected Cutoff: 25 ng/mL 01/26/2023 5:09 AM CDT [facility] Comment:Metabolite of heroin Hydrocodone Not Detected Cutoff: 25 ng/mL 01/26/2023 5:09 AM T [facility] Comment: Lortab, [place], Vicodin; Also a very minor metabolite of codeine and impurity (<1%) of oxycodone. Norhydrocodone Not Detected Cutoff: 25 ng/mL 01/26/2023 5:09 AM CDT [facility] Comment:Metabolite of hydroc odone Dihydrocodeine Not Detected Cutoff: 25 ng/mL 01/26/2023 5:09 AM CDT [facility] Comment:Metabolite of hydroc odone Hydromorphone Not Detected Cutoff: 25 ng/mL 01/26/2023 5:[address] [facility] Comment: Dilaudid, Exalgo; Also a metabolite of hydrocodone and a minor (<5%) metabolite of morphine. Grkcmiomcfojl-4-nnvz-gl ucuronide Not Detected Cutoff: 100 ng/mL 01/26/2023 5:09 AM T [facility] Comment:Metabolite of hydrom orphone Oxycodone Not Detected Cutoff: 25 ng/mL 01/26/2023 5:09 AM CDT [facility] Comment:Endocet, Percocet, O xycontin Noroxycodone Not Detected Cutoff: 25 ng/mL 01/26/2023 5:09 AM CDT [facility] Comment:Metabolite of oxycod one Oxymorphone Not Detected Cutoff: 25 ng/mL 01/26/2023 5:09 AM CDT [facility] Comment:Numorphan, Opana; Al so a metabolite of oxycodone. Dpyunzcgswu-0-gonw-gluc uronide Not Detected Cutoff: 100 ng/mL 01/26/2023 5:09 AM CDT [facility] Comment:Metabolite of oxymor phone and/or naloxone (nornaloxone) Noroxymorphone Not Detected Cutoff: 25 ng/mL 01/26/2023 5:09 AM CDT [facility] Comment:Metabolite of oxymor phone and/or naloxone (nornaloxone) Fentanyl Not Detected Cutoff: 2 ng/mL 01/26/2023 5:09 AM CDT [facility] Comment:Actiq, Duragesic, Fe ntora Norfentanyl Not Detected Cutoff: 2 ng/mL 01/26/2023 5:09 AM CDT [facility] Comment:Metabolite of fentan yl Meperidine Not Detected Cutoff: 25 ng/mL 01/26/2023 5:09 AM CDT [facility] Comment:Demerol Normeperidine Not Detected Cutoff: 25 ng/mL 01/26/2023 5:09 AM CDT [facility] Comment:Metabolite of meperi dine Naloxone Not Detected Cutoff: 25 ng/mL 01/26/2023 5:09 AM CDT [facility] Comment:Narcan Almdiqep-0-ifxw-glucuro nide Not Detected Cutoff: 100 ng/mL 01/26/2023 5:09 AM CDT [facility] Comment:Metabolite of naloxo ne Methadone, U Not Detected Cutoff: 25 ng/mL 01/26/2023 5:09 AM CDT [facility] Comment:Dolophine EDDP Not Detected Cutoff: 25 ng/mL 01/26/2023 5:09 AM T SDS Comment:Metabolite of methad one Propoxyphene Not Detected Cutoff: 25 ng/mL 01/26/2023 5:09 AM CDT SDS Comment:Darvon, Darvocet Norpropoxyphene Not Detected Cutoff: 25 ng/mL 01/26/2023 5:09 AM CDT SDS Comment:Metabolite of propox yphene Tramadol Present(A) Cutoff: 25 ng/mL 01/26/2023 5:09 AM CDT [facility] Comment:Tradol, Ultram, Ultr acet O-desmethyltramadol Present(A) Cutoff: 25 ng/mL 01/26/2023 5:09 AM CDT [facility] Comment:Metabolite of tramad ol Tapentadol Not Detected Cutoff: 25 ng/mL 01/26/2023 5:09 AM CDT [facility] Comment:Nucynta N-desmethyltapentadol Not Detected Cutoff: 50 ng/mL 01/26/2023 5:09 AM CDT [facility] Comment:Metabolite of tapent adol Ycufyxawsi-ttrp-yyandyd nide Not Detected Cutoff: 100 ng/mL 01/26/2023 [...] developed and its performance characteristics determined by [facility] in a manner consistent with CLIA requirements. [...] 10 ng/mL 01/26/2023 12:09 PM CDT [facility] Comment:Frisium, Onfi N-Desmethylclobazam Not Detected Cutoff: 200 ng/mL 01/26/2023 12:09 PM CDT [facility] Comment:Metabolite of Clobaz am Clonazepam Not Detected Cutoff: 10 ng/mL 01/26/2023 12:09 PM CDT [facility] Comment:Klonopin, Rivotril 7-aminoclonazepam Not Detected Cutoff: 10 ng/mL 01/26/2023 12:09 PM CDT [facility] Comment:Metabolite of Clonaz epam Diazepam Not Detected Cutoff: 10 ng/mL 01/26/2023 12:09 PM CDT [facility] Comment:Valium Nordiazepam Not Detected Cutoff: 10 ng/mL 01/26/2023 12:09 PM CDT [facility] Comment:Metabolite of Chlord iazepoxide, Diazepam, or Prazepam. Flunitrazepam Not Detected Cutoff: 10 ng/mL 01/26/2023 12:09 PM CDT [facility] Comment:Rohypnol 7-aminoflunitrazepam Not Detected Cutoff: 10 ng/mL 01/26/2023 12:09 PM CDT [facility] Comment:Metabolite of Flunit razepam Flurazepam Not Detected Cutoff: 10 ng/mL 01/26/2023 12:09 PM CDT [facility] Comment:Dalmane 2-Hydroxy Ethyl Flurazepam Not Detected Cutoff: [...] 01/26/2023 12:09 PM CDT [facility] Comment:Ambien Zolpidem Mfoesz-6-Qsxrirdptx acid Present(A) Cutoff: 10 ng/mL 01/26/2023 12:09 PM CDT [facility] Comment:Metabolite of Zolpid em Benzodiazepine Interpretation Test detected the presence of zolpidem and its metabolite (zolpidem xedjzt-2-qhpr oxylic acid). Suspect use of zolpidem within the past four days. 01/26/2023 12:09 PM CDT [facility] Comment: ----ADDITIONAL INFORMATION---- This test was developed and its performance characteristics determined by [facility] in a manner consistent with CLIA requirements. [...] 100 ng/mL 01/26/2023 11:04 AM CDT [facility] 3,8-isajopolonnazt-Z-et hylamphetamine (MDEA) Not Detected Cutoff: 100 ng/mL 01/26/2023 11:[address] [facility] 3,4-methylenedioxyamphe tamine (MDA) Not Detected Cutoff: 100 ng/mL 01/26/2023 11:[address] [facility] Comment:Also a metabolite of MDMA and/or MDEA Ephedrine Not Detected Cutoff: 100 ng/mL 01/26/2023 11:04 AM CDT [facility] Pseudoephedrine Not Detected Cutoff: 100 ng/mL 01/26/2023 11:04 AM CDT [facility] Comment:Sudafed Phentermine Not Detected Cutoff: 100 ng/mL 01/26/2023 11:04 AM CDT [facility] Comment:Adipex-P, Lomaira, Q symia Phencyclidine (PCP) Not Detected Cutoff: 20 ng/mL 01/26/2023 11:04 AM CDT [facility] Methylphenidate Not Detected Cutoff: 20 ng/mL 01/26/2023 11:04 AM CDT [facility] Comment:Ritalin, Concerta Ritalinic acid Not Detected Cutoff: 100 ng/mL 01/26/2023 11:04 AM CDT [facility] Comment:Metabolite of methyl phenidate Stimulant Interpretation No stimulants were detected. The absence of expected drug(s) and/or drug metabolite(s) may indicate non-complianc e, altered pharmacokinet ics, inappropriate timing of specimen collection relative to drug administratio n, diluted/adult erated urine, or limitations of testing. 01/26/2023 11:04 AM T [facility] Comment: ----ADDITIONAL INFORMATION---- This test was developed and its performance characteristics determined by [facility] in a manner consistent with CLIA requirements. This test has not been cleared or approved by the U.S. Food and Drug Administration. Urine (Urine, Clean Catch) 01/25/2023 10:03 AM CDT 01/25/2023 10:03 AM CDT Antelmo Reese M.D. LAB URINE ORDERABL ES [facility] [address] [place] [address] [facility] [address] [place] [address] [facility] [address] [place] [address] [place] [address] documented in this encounter Visit Diagnoses Diagnosis Pain Hip Bilateral Other Chronic Pain documented in this encounter Additional Health Concerns Assessment Noted Time PHQ-9 Depression Total Score: 0 01/26/20 23 2:00 PM CDT documented as of this encounter
--- OUTSIDE RECORDS SUMMARY | 2023-08-07 13:18 | XMS_ITS | Encounter Summary ---
Author Name Unknown Organization [facility] Address [address] [place] [address] Care Team Providers Care Well Flow Operator Name Role Phone Elsewhere, Pcp Primary Care Provider Unavailabl e Reason for Visit * Reason Comments Med Refill Encounter Details Date Type Department Care Team (Late st Contact Info) Description 02/08/2023 Refill Division of Nephrology and Hypertension in [place], [place] [address] [place] [phone] Antelmo Reese M.D. [address] [place] [address] Med Refill Social History Tobacco Use Types [...] often do you attend chur ch or voodoo services? Never 05/22/2022 Do you belong to [...] Date Recorded PHQ-2 Score 0 01/25/2023 [facility] - Occupational Stress Questionnaire Answer Date [...] or slept in a correction (including now)? No 05/22/2022 Depression Answer Date [...] documented as of this encounter Care Teams Well Flow Operator Relationship Specialty Start Date End Date Elsewhere, Pcp PCP - General Internal Medicine 02/23/23 documented as of this encounter
--- OUTSIDE RECORDS SUMMARY | 2023-08-07 13:18 | XMS_ITS | Encounter Summary ---
Author Name Unknown Organization [facility] Address [address] [place] [address] Care Team Providers Care Lacing Cutter Name Role Phone Unavailable Primary Care Provider Unavailabl e Encounter Details Date Type Department Care Team (Latest Contact Info) Description 01/25/2023 9:27 AM CDT - 01/25/2023 11:59 PM CDT Hospital Encounter Department of Laboratory Medicine and Pathology, [facility] in [place], [place] [address] [place] [phone] Angely Ryan, TASHA, C.N.P., D.N.P. [address] [place] [phone] Hyponatremia Discharge Disposition: Home or Self Care [...] Answer Date Recorded PHQ-2 Score 0 01/25/2023 [facility] - Occupational Stress Questionnaire Answer Date [...] 3 02/08/2022 06/27/2023 traMADoL (ULTRAM) 50 mg tabletIndications:Screw Machine Operator Single Spindle katt Pain/Nonacute Pain Take 1 tablet (50 [...] Basic Metabolic Panel (01/25/2023 9:49 AM CDT) Pathologist [facility] Potassium, S 4.4 3.6 - 5.2 mmol/L [...] APRN, C.N.P., D.N.P. LA B BLOOD ADD-ON [facility] [address] [place] [address], [place] DTL [facility] [address] [place] [address] documented in this encounter Visit Diagnoses Diagnosis Hyponatremia documented in this encounter Additional Health Concerns Assessment Noted Time PHQ-9 Depression Total Score: 0 01/26/20 23 2:00 PM CDT documented as of this encounter
--- OUTSIDE RECORDS SUMMARY | 2023-08-07 13:18 | XMS_ITS | Encounter Summary ---
Author Name Unknown Organization [facility] Address [address] [place] [address] Care Team Providers Care Tire Servicer Name Role Phone Unavailable Primary Care Provider Unavailabl e Reason for Referral * Outpatient (Routine) - Authorized Specialty Diagnoses / Procedures Referred By Ky t Referred To Contact Orthopedic Surgery Diagnoses Onychomycosis Pain Limb Generalized Giselle Marmolejo D.PChristianMChristian [address] [phone] [facility] Region Referral ID Status Reason Start Date Expiration Date V isits Requested Visits Authorized [id number] Authorized 01/15/2023 01/14/2026 1 1 Reason for Visit * Reason Comments Nail Problem Here for nail care Nail Problem Encounter Details Date Type Department Care Team (Latest Contact Info) Description 01/15/2023 12:30 PM CDT Comprehensive Visit Department of Orthopedic Surgery in [address] [place] [phone] Giselle Marmolejo D.PChristianMChristian [address] [phone] [...] often do you attend chur ch or mormonism services? Never 05/22/2022 Do you belong to [...] Answer Date Recorded PHQ-2 Score 0 01/27/2022 [facility] of Occupat ional Health - [...] as of this encounter Progress Notes * Giselle Marmolejo D.P.MChristian - 01/15/2023 12:30 PM CDT SUBJECTIVE CHIEF [...]
--- OUTSIDE RECORDS SUMMARY | 2023-08-07 13:19 | XMS_ITS | Encounter Summary ---
Author Name Unknown Organization [facility] Address [address] [place] [address] Care Team Providers Care Medical Assistant Per Diem Name Role Phone Elsewhere, Pcp Primary Care Provider Unavailabl e Encounter Details Date Type Department Care Team (Late st Contact Info) Description 04/20/2010 Historical Ophthalmology [facility] Avelino Valdes M.D. [address] [place] [phone] Social History Tobacco Use Types Packs/Day Years [...] Document Viewer. CDM Reports - EYEPO Id: [id number] Status: Fnl documented in this encounter Plan of Treatment Not on file documented as of this encounter Visit Diagnoses Not on filedocumented in this encounter Additional Health Concerns Infection Onset Date Last Indicated Resolved Time COVID19 Pending 02/23/2023 02/23/2023 02/23/2023 1 2:59 PM CDT documented as of this encounter Care Teams Medical Assistant Per Diem Relationship Specialty Start Date End Date Elsewhere, Pcp PCP - General Internal Medicine 02/23/23 documented as of this encounter
--- OUTSIDE RECORDS SUMMARY | 2023-08-07 13:19 | XMS_ITS | Encounter Summary ---
Author Name Unknown Organization [facility] Address [address] [place] [address] Care Team Providers Care Scribing Machine Operator Name Role Phone Unavailable Primary Care Provider Unavailabl e Reason for Visit * Reason Onset Date Comments Previsit Intake 01/10/2023 Encounter Details Date Type Department Care Team (Latest Contact Info) Description 01/10/2023 9:30 AM CDT Clinical Communication Virtual Review in [place], [place] 200 [place], [place] [phone] Previsit Intake Social History Tobacco Use Types [...] any clubs o r organizations such as congregational groups, unions, fraternal or athletic groups, [...] Answer Date Recorded PHQ-2 Score 0 01/27/2022 [facility] [place] of Occupat ional Health - Occupational Stress [...]
--- OUTSIDE RECORDS SUMMARY | 2023-08-07 13:19 | XMS_ITS | Encounter Summary ---
Author Name Unknown Organization [facility] Address [address] [place] [address] Care Team Providers Care Scheduling Agent Name Role Phone Elsewhere, Pcp Primary Care Provider Unavailabl e Encounter Details Date Type Department Care Team (Late st Contact Info) Description 03/03/2014 Historical Ophthalmology RST OPH Ric August O.D. [address] [place] [address] Social History Tobacco Use Types Packs/Day Years [...] astigmatism, presbyopia). CDM Reports - EYEGEN Id: [id number] Status: Fnl documented in this encounter Plan of Treatment Not on file documented as of this encounter Visit Diagnoses Not on filedocumented in this encounter Additional Health Concerns Infection Onset Date Last Indicated Resolved Time COVID19 Pending 02/23/2023 02/23/2023 02/23/2023 1 2:59 PM CDT documented as of this encounter Care Teams Scheduling Agent Relationship Specialty Start Date End Date Elsewhere, Pcp PCP - General Internal Medicine 02/23/23 documented as of this encounter
--- OUTSIDE RECORDS SUMMARY | 2023-08-07 13:19 | XMS_ITS | Encounter Summary ---
Author Name Unknown Organization [facility] Address [address] [place] [address] Care Team Providers Care Glue Spreading Machine Operator Name Role Phone Elsewhere, Pcp Primary Care Provider Unavailabl e Encounter Details Date Type Department Care Team (Late st Contact Info) Description 03/24/2016 Historical Ophthalmology RST OPH Maitlda Arana O.D. [address] [place] [address] Social History Tobacco Use Types Packs/Day Years [...] astigmatism, presbyopia). CDM Reports - EYEGEN Id: [id number] Status: Fnl documented in this encounter Plan of Treatment Not on file documented as of this encounter Visit Diagnoses Not on filedocumented in this encounter Additional Health Concerns Infection Onset Date Last Indicated Resolved Time COVID19 Pending 02/23/2023 02/23/2023 02/23/2023 1 2:59 PM CDT documented as of this encounter Care Teams Glue Spreading Machine Operator Relationship Specialty Start Date End Date Elsewhere, Pcp PCP - General Internal Medicine 02/23/23 documented as of this encounter
--- OUTSIDE RECORDS SUMMARY | 2023-08-07 13:19 | XMS_ITS | Encounter Summary ---
Author Name Unknown Organization [facility] Address [address] [place] [address] Care Team Providers Care Training Program Manager Name Role Phone Unavailable Primary Care Provider Unavailabl e Reason for Visit * Outpatient (Routine) - Closed Specialty Diagnoses / Procedures Referred By Contac t Referred To Contact Cardiovascular Disease Diagnoses Angina Pectoris Unspecified (HCC) Thais Briceno M.D. [address] [place] [phone] [facility] Referral ID Status Reason Start Date Expiration Date Visits Re quested Visits Authorized [id number] Closed 07/13/2022 07/12/2025 1 1 Encounter Details Date Type Department Care Team (Latest Contact Info) Description 01/11/2023 4:00 PM CDT Office Visit Department of Cardiovascular Medicine in [place], [place] [address] [place] [phone] Thais Briceno M.D. [address] [place] [phone] Angely Ryan, SURVEY TECHNOLOGIST, C.N.P., D.N.P. 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 Never 05/22/2022 Do you belong to any clubs o r organizations such as moravian groups, unions, fraternal or athletic groups, [...] Merrill is a 82 y.o. male from [facility] who presents for chest pain followup. He [...] of left anterior chest pain while hanging [place] lights. He presented to his local ER [...] / PLAN #1 Atherosclerotic Heart Disease Of [place] Coronary Artery Without Angina Pectoris #2 Hyponatremia [...] on file documented as of this encounter Results * (ABNORMAL) Basic Metabolic Panel (01/25/2023 9:49 AM CDT) [facility] Potassium, S 4.4 3.6 - 5.2 mmol/L [...] APRN, C.N.P., D.N.P. LA B BLOOD ADD-ON [facility] [place] [address] [place] [address], [facility] DTL [facility] [place] [place] 200 [place] [address] documented in this encounter Visit Diagnoses Diagnosis Atherosclerotic Heart Disease Of [place] Coronary Artery Without Angina Pectoris- Primary Hyponatremia Hypertension Essential Primary documented in this encounter Additional Health Concerns Assessment Noted Time PHQ-9 Depression Total Score: 0 01/28/20 22 10:00 AM CDT documented as of this encounter
--- OUTSIDE RECORDS SUMMARY | 2023-08-07 13:19 | XMS_ITS | Encounter Summary ---
Author Name Unknown Organization [facility] Address [address] [place] [address] Care Team Providers Care Top Distribution Executive Name Role Phone Unavailable Primary Care Provider Unavailabl e Encounter Details Date Type Department Care Team (Late st Contact Info) Description 10/12/2022 Orders Only Division of Nephrology and Hypertension in [place], [place] [address] [place] [address] Antelmo Reese M.D. [address] [place] [address] Social History Tobacco Use Types Packs/Day Years [...] any clubs o r organizations such as muslim groups, unions, fraternal or athletic groups, [...] Answer Date Recorded PHQ-2 Score 0 01/27/2022 [facility] of Occupat ional Health - Occupational [...]
--- OUTSIDE RECORDS SUMMARY | 2023-08-07 13:19 | XMS_ITS | Encounter Summary ---
Author Name Unknown Organization [facility] Address [address] [place] [address] Care Team Providers Care Plastics Bench Mechanic Name Role Phone Elsewhere, Pcp Primary Care Provider Unavailabl e Encounter Details Date Type Department Care Team (Late st Contact Info) Description 03/15/2011 Historical Ophthalmology RST OPH Radhika Valadez [address] [place] [address] Social History Tobacco Use Types Packs/Day Years [...] surgery right eye with DR. Valdes 03-31-11. [phone] CDM Reports - EYESV Id: [id number] Status: Fnl documented in this encounter Plan of Treatment Not on file documented as of this encounter Visit Diagnoses Not on filedocumented in this encounter Additional Health Concerns Infection Onset Date Last Indicated Resolved Time COVID19 Pending 02/23/2023 02/23/2023 02/23/2023 1 2:59 PM CDT documented as of this encounter Care Teams Plastics Bench Mechanic Relationship Specialty Start Date End Date Elsewhere, Pcp PCP - General Internal Medicine 02/23/23 documented as of this encounter
--- OUTSIDE RECORDS SUMMARY | 2023-08-07 13:19 | XMS_ITS | Encounter Summary ---
Author Name Unknown Organization [facility] Address [address] [place] [address] Care Team Providers Care Progress Man Name Role Phone Unavailable Primary Care Provider Unavailabl e Reason for Visit * Reason Comments Med Refill Encounter Details Date Type Department Care Team (Late st Contact Info) Description 10/19/2022 Refill Division of Nephrology and Hypertension in [place], [place] [address] [place] [phone] Antelmo Reese M.D. [address] [place] [address] Med Refill Social History Tobacco Use Types [...] often do you attend chur ch or scientology services? Never 05/22/2022 Do you belong to any clubs o r organizations such as christianity groups, unions, fraternal or athletic groups, or [...] Answer Date Recorded PHQ-2 Score 0 01/27/2022 [facility] - Occupational Stress Questionnaire Answer [...]
--- OUTSIDE RECORDS SUMMARY | 2023-08-07 13:19 | XMS_ITS | Encounter Summary ---
Author Name Unknown Organization [facility] Address [address] [place] [address] Care Team Providers Care Hr Recruiter Name Role Phone Unavailable Primary Care Provider Unavailabl e Reason for Visit * Reason Onset Date Comments 3 month chronic opioid review 09/11/2022 Encounter Details Date Type Department Care Team (Latest Contact Info) Description 09/11/2022 Clinical Communication Division of Nephrology and Hypertension in [place], [place] [address] [place] [phone] Ange Leonard, R.N. [address] [place] [phone] 3 month chronic opioid review Social History [...] often do you attend chur ch or methodist services? Never 05/22/2022 Do you belong to any clubs o r organizations such as sabianism groups, unions, fraternal or athletic groups, [...] Answer Date Recorded PHQ-2 Score 0 01/27/2022 [facility] - Occupational Stress Questionnaire Answer [...] ratin Controlled substance agreement on file: 01/27/2022 [place] Prescription Drug Monitoring Program (PDMP): Not a delegate Opioid Action Plan reviewed. documented in this encounter Plan of Treatment Not on file documented as of this encounter Visit Diagnoses Not on filedocumented in this encounter Additional Health Concerns Assessment Noted Time PHQ-9 Depression Total Score: 0 01/28/20 22 10:00 AM CDT documented as of this encounter
--- OUTSIDE RECORDS SUMMARY | 2023-08-07 13:19 | XMS_ITS | Encounter Summary ---
Author Name Unknown Organization [facility] Address [address] [place] [address] Care Team Providers Care Hand Or Machine Paster Name Role Phone Elsewhere, Pcp Primary Care Provider Unavailabl e Encounter Details Date Type Department Care Team (Late st Contact Info) Description 04/06/2015 Historical Ophthalmology RST OPH Ric August O.D. [address] [place] [phone] Social History Tobacco Use Types Packs/Day Years [...] astigmatism, presbyopia). CDM Reports - EYEGEN Id: [id number] Status: Fnl documented in this encounter Plan of Treatment Not on file documented as of this encounter Visit Diagnoses Not on filedocumented in this encounter Additional Health Concerns Infection Onset Date Last Indicated Resolved Time COVID19 Pending 02/23/2023 02/23/2023 02/23/2023 1 2:59 PM CDT documented as of this encounter Care Teams Hand Or Machine Paster Relationship Specialty Start Date End Date Elsewhere, Pcp PCP - General Internal Medicine 02/23/23 documented as of this encounter
--- OUTSIDE RECORDS SUMMARY | 2023-08-07 13:19 | XMS_ITS | Encounter Summary ---
Author Name Unknown Organization [facility] Address [address] [place] [address] Care Team Providers Care A&P Technician Name Role Phone Elsewhere, Pcp Primary Care Provider Unavailabl e Encounter Details Date Type Department Care Team (Late st Contact Info) Description 02/13/2017 Historical Ophthalmology RST OPH Cheyenne Vallejo M.D. [address] [place] [address] Social History Tobacco Use Types Packs/Day Years [...] Myopia, Presbyopia CDM Reports - EYEGEN Id: [id number] Status: Fnl documented in this encounter Plan of Treatment Not on file documented as of this encounter Visit Diagnoses Not on filedocumented in this encounter Additional Health Concerns Infection Onset Date Last Indicated Resolved Time COVID19 Pending 02/23/2023 02/23/2023 02/23/2023 1 2:59 PM CDT documented as of this encounter Care Teams A&P Technician Relationship Specialty Start Date End Date Elsewhere, Pcp PCP - General Internal Medicine 02/23/23 documented as of this encounter
--- OUTSIDE RECORDS SUMMARY | 2023-08-07 13:19 | XMS_ITS | Encounter Summary ---
Author Name Unknown Organization [facility] Address [address] [place] [address] Care Team Providers Care Lead Miner Name Role Phone Elsewhere, Pcp Primary Care Provider Unavailabl e Encounter Details Date Type Department Care Team (Late st Contact Info) Description 03/15/2011 Historical Ophthalmology RST OPH Avelino Valdes M.D. [address] [place] [phone] Social History Tobacco Use Types Packs/Day Years [...] Right cataract CDM Reports - EYEGEN Id: [id number] Status: Fnl documented in this encounter Plan of Treatment Not on file documented as of this encounter Visit Diagnoses Not on filedocumented in this encounter Additional Health Concerns Infection Onset Date Last Indicated Resolved Time COVID19 Pending 02/23/2023 02/23/2023 02/23/2023 1 2:59 PM CDT documented as of this encounter Care Teams Lead Miner Relationship Specialty Start Date End Date Elsewhere, Pcp PCP - General Internal Medicine 02/23/23 documented as of this encounter
--- OUTSIDE RECORDS SUMMARY | 2023-08-07 13:19 | XMS_ITS | Encounter Summary ---
Author Name Unknown Organization [facility] Address [address] [place] [address] Care Team Providers Care Retail Product Advisor Name Role Phone Elsewhere, Pcp Primary Care Provider Unavailabl e Encounter Details Date Type Department Care Team (Late st Contact Info) Description 03/21/2012 Historical Ophthalmology RST OPH Maurice Cottrell M.D. [address] [place] [phone] Social History Tobacco Use Types Packs/Day Years [...] astigmatism, presbyopia). CDM Reports - EYEGEN Id: [id number] Status: Fnl documented in this encounter Plan of Treatment Not on file documented as of this encounter Visit Diagnoses Not on filedocumented in this encounter Additional Health Concerns Infection Onset Date Last Indicated Resolved Time COVID19 Pending 02/23/2023 02/23/2023 02/23/2023 1 2:59 PM CDT documented as of this encounter Care Teams Retail Product Advisor Relationship Specialty Start Date End Date Elsewhere, Pcp PCP - General Internal Medicine 02/23/23 documented as of this encounter
--- OUTSIDE RECORDS SUMMARY | 2023-08-07 13:19 | XMS_ITS | Encounter Summary ---
Author Name Unknown Organization [facility] Address [address] [place] [address] Care Team Providers Care Production Cook Name Role Phone Elsewhere, Pcp Primary Care Provider Unavailabl e Encounter Details Date Type Department Care Team (Late st Contact Info) Description 05/05/2011 Historical Ophthalmology RST OPH Avelino Valdes M.D. [address] [place] [phone] Social History Tobacco Use Types Packs/Day Years [...] Document Viewer. CDM Reports - EYEPO Id: [id number] Status: Fnl documented in this encounter Plan of Treatment Not on file documented as of this encounter Visit Diagnoses Not on filedocumented in this encounter Additional Health Concerns Infection Onset Date Last Indicated Resolved Time COVID19 Pending 02/23/2023 02/23/2023 02/23/2023 1 2:59 PM CDT documented as of this encounter Care Teams Production Cook Relationship Specialty Start Date End Date Elsewhere, Pcp PCP - General Internal Medicine 02/23/23 documented as of this encounter
--- OUTSIDE RECORDS SUMMARY | 2023-08-07 13:19 | XMS_ITS | Encounter Summary ---
Author Name Unknown Organization [facility] Address [address] [place] [address] Care Team Providers Care Six Pack Packer Name Role Phone Unavailable Primary Care Provider Unavailabl e Reason for Visit * Reason Comments Med Refill Encounter Details Date Type Department Care Team (Late st Contact Info) Description 10/07/2022 Refill Division of Nephrology and Hypertension in [place], [place] [address] [place] [phone] Antelmo Reese M.D. [address] [place] [address] Med Refill Social History Tobacco Use Types [...] often do you attend chur ch or baptist services? Never 05/22/2022 Do you [...] Answer Date Recorded PHQ-2 Score 0 01/27/2022 [facility] - Occupational Stress Questionnaire Answer [...]
--- OUTSIDE RECORDS SUMMARY | 2023-08-07 13:19 | XMS_ITS | Encounter Summary ---
Author Name Unknown Organization [facility] Address [address] [place] [address] Care Team Providers Care Senior Bioinformatics Scientist Name Role Phone Unavailable Primary Care Provider Unavailabl e Reason for Referral * Outpatient (Routine) - Authorized Specialty Diagnoses / Procedures Referred By Contac t Referred To Contact Nephrology and Hypertension Antelmo Reese M.D. [address] [place] [phone] [facility] Referral ID Status Reason Start Date Expiration Date V isits Requested Visits Authorized [id number] Authorized 12/04/2022 12/03/2025 1 1 Scheduling Instructions Yearly opioid contract renewal, schedule after nurse visit Reason for Visit * Reason Onset Date Comments three month opioid follow up 11/28/2022 Encounter Details Date Type Department Care Team (Latest Contact Info) Description 11/28/2022 Clinical Communication Division of Nephrology and Hypertension in [place], [place] [address] [place] [phone] Ange Leonard R.N. [address] [place] [phone] three month opioid follow up Social History [...] week 05/22/2022 How often do you attend [facility] or denominational services? Never 05/22/2022 Do you belong to any clubs o r organizations such as sikh groups, unions, fraternal or athletic groups, [...] Answer Date Recorded PHQ-2 Score 0 01/27/2022 [facility] of Occupat ional Health - Occupational Stress [...] ratin Controlled substance agreement on file: 02/13/2022 [place] Prescription Drug Monitoring Program (PDMP): Not a [...]
--- OUTSIDE RECORDS SUMMARY | 2023-08-07 13:19 | XMS_ITS | Encounter Summary ---
Author Name Unknown Organization [facility] Address [address] [place] [address] Care Team Providers Care Plate Washer Name Role Phone Unavailable Primary Care Provider Unavailabl e Encounter Details Date Type Department Care Team (Latest Contact Info) Description 01/11/2023 12:45 PM CDT - 01/11/2023 11:59 PM CDT Hospital Encounter Department of Laboratory Medicine and Pathology, [facility] in [place], [place] [address] [place] [address] Thais Briceno M.D. [address] [place] [phone] Angina Pectoris Unspecified (HCC) Discharge Disposition: Home [...] often do you attend chur ch or muslim services? Never 05/22/2022 Do you belong to [...] Answer Date Recorded PHQ-2 Score 0 01/27/2022 [facility] of Occupat ional Health - Occupational [...] or slept in a fpc (including now)? No 05/22/2022 Depression Answer Date [...] 3 02/08/2022 06/27/2023 traMADoL (ULTRAM) 50 mg tabletIndications:Um Specialist katt Pain/Nonacute Pain Take 1 tablet [...] M.D. LAB BLOOD ADD-ON [facility] [address] [place] [address], [facility] DTL [facility] [address] [place] [address] * (ABNORMAL) Comprehensive Metabolic Panel (01/11/2023 12:54 PM CDT) Potassium, S 4.5 3.6 - 5.2 mmol/L [...] M.D. LAB BLOOD ADD-ON [facility] [address] [place] [address], [facility] DTL [facility] [address] [place] [address] documented in this encounter Visit Diagnoses Diagnosis Angina Pectoris Unspecified (HCC) documented in this encounter Additional Health Concerns Assessment Noted Time PHQ-9 Depression Total Score: 0 01/28/20 22 10:00 AM CDT documented as of this encounter
--- OUTSIDE RECORDS SUMMARY | 2023-08-07 13:20 | XMS_ITS | Encounter Summary ---
Author Name Unknown Organization [facility] Address [address] [place] [address] Care Team Providers Care Test Conductor Name Role Phone Elsewhere, Pcp Primary Care [...] this encounter Progress Notes * Geeta Del oRsario M.D. - 05/28/2007 8:22 AM CST Eye [...] #4 Presbyopia CDM Reports - EYEGEN Id: [id number] Status: Fnl documented in this encounter Plan of Treatment Not on file documented as of this encounter Visit Diagnoses Not on filedocumented in this encounter Additional Health Concerns Infection Onset Date Last Indicated Resolved Time COVID19 Pending 02/23/2023 02/23/2023 02/23/2023 1 2:59 PM CDT documented as of this encounter Care Teams Test Conductor Relationship Specialty Start Date End Date Elsewhere, Pcp PCP - General Internal Medicine 02/23/23 documented as of this encounter
--- OUTSIDE RECORDS SUMMARY | 2023-08-07 13:20 | XMS_ITS | Encounter Summary ---
Author Name Unknown Organization [facility] Address [address] [place] [address] Care Team Providers Care Sighter Name Role Phone Elsewhere, Pcp Primary Care Provider Unavailabl e Encounter Details Date Type Department Care Team (Late st Contact Info) Description 02/21/2010 Historical Ophthalmology RST OPH Avelino Valdes M.D. [address] [place] [phone] Social History Tobacco Use Types Packs/Day Years [...] #2 cataracts CDM Reports - EYEGEN Id: [id number] Status: Fnl documented in this encounter Plan of Treatment Not on file documented as of this encounter Visit Diagnoses Not on filedocumented in this encounter Additional Health Concerns Infection Onset Date Last Indicated Resolved Time COVID19 Pending 02/23/2023 02/23/2023 02/23/2023 1 2:59 PM CDT documented as of this encounter Care Teams Sighter Relationship Specialty Start Date End Date Elsewhere, Pcp PCP - General Internal Medicine 02/23/23 documented as of this encounter
--- OUTSIDE RECORDS SUMMARY | 2023-08-07 13:20 | XMS_ITS | Encounter Summary ---
Author Name Unknown Organization [facility] Address [address] [place] [address] Care Team Providers Care Ticket Collector Or Usher Name Role Phone Elsewhere, Pcp Primary Care Provider Unavailabl e Encounter Details Date Type Department Care Team (Late st Contact Info) Description 02/21/2010 Historical Ophthalmology RST OPH Libby Gonzalez [address] [place] [phone] Social History Tobacco Use Types Packs/Day Years [...] Cataract surgery CDM Reports - EYESV Id: [id number] Status: Fnl documented in this encounter Plan of Treatment Not on file documented as of this encounter Visit Diagnoses Not on filedocumented in this encounter Additional Health Concerns Infection Onset Date Last Indicated Resolved Time COVID19 Pending 02/23/2023 02/23/2023 02/23/2023 1 2:59 PM CDT documented as of this encounter Care Teams Ticket Collector Or Usher Relationship Specialty Start Date End Date Elsewhere, Pcp PCP - General Internal Medicine 02/23/23 documented as of this encounter
--- OUTSIDE RECORDS SUMMARY | 2023-08-07 13:20 | XMS_ITS | Encounter Summary ---
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
--- OUTSIDE RECORDS SUMMARY | 2023-08-07 13:20 | XMS_ITS | Encounter Summary ---
Author Name Unknown Organization [facility] Address [address] [place] [address] Care Team Providers Care Commercial Baker Helper Name Role Phone Elsewhere, Pcp Primary Care Provider Unavailabl e Encounter Details Date Type Department Care Team (Late st Contact Info) Description 02/09/2010 Historical Ophthalmology [facility] Raul Joy O.D. [address] [place] [address] Social History Tobacco Use Types Packs/Day Years [...] visually significant. CDM Reports - EYEGEN Id: [id number] Status: Fnl documented in this encounter Plan of Treatment Not on file documented as of this encounter Visit Diagnoses Not on filedocumented in this encounter Additional Health Concerns Infection Onset Date Last Indicated Resolved Time COVID19 Pending 02/23/2023 02/23/2023 02/23/2023 1 2:59 PM CDT documented as of this encounter Care Teams Commercial Baker Helper Relationship Specialty Start Date End Date Elsewhere, Pcp PCP - General Internal Medicine 02/23/23 documented as of this encounter
--- OUTSIDE RECORDS SUMMARY | 2023-08-07 13:20 | XMS_ITS | Encounter Summary ---
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
== END 2023-08-07 13:10 | disposition home or self-care (01) ==
PROVIDERS: PCP Internal Medicine; Visit Provider Internal Medicine
DX: R41.89 Other symptoms and signs involving cognitive functions and awareness (principal); G20.A1 Parkinson's disease without dyskinesia, without mention of fluctuations; R33.9 Retention of urine, unspecified; N39.0 Urinary tract infection, site not specified; I10 Essential (primary) hypertension; E87.1 Hypo-osmolality and hyponatremia
CPT/HCPCS: 80053; 80061; 80177; 82140; 82306; 82607; 82746; 84207; 84443; 86334; 86592; 86618; 87086; 87186

== ENCOUNTER 2023-08-15 10:20 | Outpatient (CLI) | payer MEDICARE, OTHER, SELFPAY | END 2023-08-15 10:21 | disposition home or self-care (01) | LOC: NFLDREF 08-16 07:31 | PROVIDERS: PCP Internal Medicine; Referring Provider Internal Medicine; Visit Provider Internal Medicine | DX: R39.89 Other symptoms and signs involving the genitourinary system (principal) | CPT/HCPCS: 87086 ==

== ENCOUNTER 2023-10-31 13:00 | Outpatient (RCR) | payer MEDICARE, OTHER, SELFPAY ==
--- NOTE | 2023-09-04 15:12 | PT.OPEX ---
PT [place] Outpatient Eval PT [facility] Outpatient Eval Start: 09/04/23 08:03 Freq: Status: Active Protocol: Document 09/04/23 08:04 AMS (Rec: 09/04/23 13:56 AMS [id number]) E-signed By Samantha Arrington PT Physical Therapy Outpatient Evaluation Insurance Information Recert Due Date 11/28/23 Insurance Name Medicare B Medical Diagnosis Parkinson's disease without dyskinesia/fluctuation Treating Diagnosis Impaired gait/balance Muscle weakness Abnormal weakness Stiffness of unspecified joint Falls Referring MD Sachin Baires MD Subjective Subjective Familia is an 83-year-old male who presents to outpatient physical therapy with , Roseann, for evaluation in setting of recently diagnosed Parkinson's in June of 2023 . His symptoms consist of pill -rolling tremor of left upper extremity, cognitive changes, gait imbalance, falls, and bradykinesia. He takes Carbidopa/Levidopa daily since diagnosis in June, which has seemed to help symptoms. Most recent hospital stay was for 9 days in [place] for altered mental state and seizure. It was believed the seizures may be related to ongoing insults from TIA/micro CVAs. He recently followed up with outpatient neurology in [place] to investigate causes of repeat seizures - had repeat MRI/CT, haven't gotten results back yet. Hx of stroke in 2004 and 2 recent heart attacks in May. notes that over the last 6 months or so, pt has gone from independent ambulator without device to using AD, more unsteadiness, and falls. Functional mobility/Activities of Daily Living: Modified independent for all mobility with use of single point cane or 4WW since 6 months ago. Lives with spouse in a 2-level home without services. IADLS: dependent on spouse for groceries, bills, medications, finances, etc. Equipment used: Utilizes 4WW since May of 2023 after fall leading to hospitalization. He uses the FWW for longer distances and inside the house, although hard to lug around. Uses the SPC when he's not using the walker - 20% of the time he would estimate. Home Setup: Lives with spouse in two-level house (rambler) with 2-3 steps/stairs to enter , 0-1 railings if entering through front/2 railings in garage. 14 stairs w/ railings to get to basement (able to live on main level, although does stairs 10x/day for exercise). Sleeps on main floor. Receives help from: Spouse Falls: 2 in the past year, one with injury in May with hospitalization. He got tangled up in his 4WW. Scraped his arm, no other injuries. Concerned about balance: No Exercise/Activity Level: Currently sedentary (doesn't leave house much), although does try to do stairs 10x/day for exercise. Pain: None. Previous Treatments: home physical therapy for a few months up until last week ( worked on balance/ strengthening and stairs), started Carbidopa/Levidopa in June with some reports of improvement. Last took at 8am. Also home occupational therapy and will continue that here. 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 Mental status: Awake and alert but did not formally assess orientation. Cranial nerves: Did not formally assess but appears globally intact based on visual observation. Posture: Forward head, rounded shoulders, stooped posture. Visible resting tremor of left hand/UE. Gait/Stair: Ambulates with single point cane in right hand, mildly decreased foot clearance bilaterally, flexed forward posture, decreased trunk rotation, mildly antalgic on left, and decreased L arm swing. Bed Mobility/Transfers: Independent Balance: Four-stage balance test: -Narrow stance: 30 sec -Semi-tandem stance: 30 sec with postural sway -Tandem-stance: 3-4 sec B -Single leg balance: 1 sec B -Romberg: increased postural sway w/ eyes closed, requires CGA, 15 sec Range of Motion: Upper extremities: WNL with exception of mildly decreased R shoulder flexion. Lower extremities: Hip flexion limited to 90 deg bilaterally , mildly limited hip abduction bilaterally, significantly limited hip IR bilaterally. Lumbar ROM: 50% limited in R trunk rotation, 25% limited in L trunk rotation, 50% limited in lumbar extension. Strength: MMT Upper extremities: WNL Lower extremities: Hip flexion: R 4+/5 L 4-/5 Knee extension: R 4/5 L 4/5 Knee flexion: R 4+/5 L 4+/5 Hip extension: able to perform DL bridge w/ difficulty Ankle dorsiflexion: R 4+/5 L 4 -/5 Ankle plantarflexion: did not assess 30 sec STS: 4 reps Sensory: Did not formally assess. Denies N/T. Tone: Did not assess. Coordination: Did not assess. Functional Test Performed & Score 5 sec STS: 37.5 sec 30 sec STS: 4 reps Gait speed: 0.48 m/s with single point cane TU sec with single point cane TUG CO.5 sec with single point cane Activities Balance Confidence Scale: 1190/1600 = 74.4% Assessment Assessment/Impression Pt is a 83 -year-old male who presents with concerns of gait imbalance, left-sided resting tremor, cognitive changes, and falls in the setting of recently diagnosed Parkinson's syndrome. Please see above for complex medical history ( most notably, undergoing workup for ongoing seizures related to potential TIA/ repeated micro CVAs and two recent heart attacks in May). On exam, patient also demonstrates notable objective findings including limited hip ROM and trunk rotation/extension ROM, impaired dynamic and static balance, impaired gait with use of assistive device ( presents with single point cane today, uses 4WW 80% of the time per report), decreased cognition, and significantly decreased LE strength, leading to difficulties with walking longer distances, performing stairs, bending over to grain picker objects, reaching, walking in crowded areas, standing up from a chair, and walking on uneven terrain. Patient has had two falls in the last year , one leading to subsequent hospitalization for altered mental state. Pt is at increased fall risk as demonstrated by 30 sec STS and 5x STS significantly below age-related norm (pt scored 4 reps on 30 sec STS with age- related norm at 13 reps), gait speed of 0.48 m/s, and TUG score of 15 sec (fall risk if > 11.5 sec). With brief LSVT BIG Stimulability Testing, pt does initially demonstrate improved amplitude of movement during functional movements/ gait with visual/verbal cues. Patient may be appropriate for LSVT Big referral for future sessions to assist with improving gait, balance, and fall risk; will continue to assess at future sessions. Patient is appropriate for skilled physical therapy services to address the above deficits. Pt was agreeable with plan of care and goals established. Primary Functional Limitations walking longer distances, performing stairs, bending over to grain picker objects, reaching, walking in crowded areas, standing up from a chair, and walking on uneven terrain Plan of Care Rehabilitation Potential Good Physical Therapy Goals In 2 sessions: Pt will demonstrate consistent HEP compliance to ensure progress in reaching established goals during course of care. In 12 sessions: 2. Patient will improve TUG score from 15 seconds to 11.5 or less to demonstrate clinically significant improvements in balance/ stability. 3. Patient will improve 5x STS from 37.5 sec to 20 sec (MDC 4 seconds) to demonstrate improvement in LE functional strength. 4. Patient will demonstrate improved LE strength to >4+/5 for all muscle groups for decreased fall risk and improved gait quality. Coordination/Communication With Referral Source Treatment Plan/Direct Interventions Gait Training,Manual Therapy, Neuromuscular Re-ed,Self-Care/ Home Management,Therapeutic Activities,Therapeutic Exercises Frequency/Duration 1x/week for 8-12 sessions, may transition to LSVT BIG as appropriate Patient Will Be Discharged From Therapy Completion of LTG(s), Independent w/HEP, Independently Progressing Evaluation Billing Untimed Code Treatment Minutes 35 Complexity High Certification Information Initial Certification Date 09/04/23 Ending Certification Date 11/28/23 Provider Signature Shows Agreement With POC & Medical Necessity Physician Signature & Date Requested Please Sign/Date Here Physician Comment/Change : Physician NPI Number #
== END 2023-11-01 13:50 | disposition home or self-care (01) ==
PROVIDERS: PCP Internal Medicine; Visit Provider Internal Medicine
DX: G20.A1 Parkinson's disease without dyskinesia, without mention of fluctuations (principal); R26.81 Unsteadiness on feet; R26.9 Unspecified abnormalities of gait and mobility; M62.81 Muscle weakness (generalized); R29.6 Repeated falls; M25.60 Stiffness of unspecified joint, not elsewhere classified; Z51.89 Encounter for other specified aftercare
CPT/HCPCS: 97110; 97112; 97116; 97163

== ENCOUNTER 2024-11-05 10:36 | Outpatient (CLI) | payer MEDICARE, OTHER, SELFPAY | END 2024-11-05 10:37 | disposition home or self-care (01) | PROVIDERS: PCP Internal Medicine; Visit Provider Internal Medicine | DX: I10 Essential (primary) hypertension (principal); R53.1 Weakness; R41.89 Other symptoms and signs involving cognitive functions and awareness; Z79.899 Other long term (current) drug therapy; Z13.0 Encounter for screening for diseases of the blood and blood-forming organs and certain disorders involving the immune mechanism | CPT/HCPCS: 80048; 82607; 83540; 83550; 84207 ==